=== PATIENT | female | born 1995 | race Caucasian/White ===

== ENCOUNTER 2023-11-03 06:47 | Outpatient (OUT) | payer OTHER, SELFPAY ==
[2023-11-03 07:25] LABS: Basophils Percent Auto 0.4 % (0.2-2.0); Eosinophils Absolute Auto 0.1 10^3/uL (0.0-0.7); Eosinophils Percent Auto 1.1 % (0.9-7.0); Hematocrit 39.6 % (36.0-48.0); Hemoglobin 12.4 g/dL (12.0-16.0); Immature Granulocytes Abs Auto 0.01 10^3/uL (0.00-0.03); Immature Granulocytes Pct Auto 0.1 % (0.0-0.5); Lymphocytes Absolute Auto 3.3 10^3/uL (1.2-3.8); Lymphocytes Percent Auto 41.2 % (20.5-60.0); Mean Corpuscular HGB Conc 31.3 g/dL (29.9-35.2); Mean Corpuscular Hemoglobin 28.3 pg (26.7-34.0); Mean Corpuscular Volume 90.4 fL (81.0-99.0); Mean Platelet Volume 8.8 fL (9.5-13.5); Monocytes Absolute Auto 0.4 10^3/uL (0.3-0.8); Monocytes Percent Auto 4.6 % (1.7-12.0); Neutrophils Absolute Auto 4.3 10^3/uL (1.4-6.5); Neutrophils Percent Auto 52.6 % (43.0-75.0); Platelet Count 318 10^3/uL (150-450); Red Blood Count 4.38 10^6/uL (4.20-5.40); Red Cell Distribution Width 13.2 % (11.0-15.0); White Blood Count 8.1 10^3/uL (4.0-11.0)
[2023-11-03 08:10] LABS: HCG Quantitative <1 mIU/mL; Thyroid Stimulating Hormone 3.214 uIU/mL (0.358-3.740)
[2023-11-04 04:11] LABS: FSH 7.7 mIU/mL (.); Luteinizing Hormone(LH) 12.7 mIU/mL (.)
[2023-11-06 03:07] LABS: Anti-Mullerian Hormone (AMH) 3.32 ng/mL (.)
[2023-11-07 17:08] LABS: DHEA, Serum 448 ng/dL (31-701)
== END 2023-11-03 06:48 | disposition home or self-care (01) ==
LOC: LAB 06:48
PROVIDERS: Visit Provider Obstetrics & Gynecology
DX: E28.2 Polycystic ovarian syndrome (principal)
CPT/HCPCS: 36415; 82397; 82626; 82627; 83001; 83002; 84439; 84443; 84702; 85025

== ENCOUNTER 2024-02-20 09:02 | Outpatient (OUT) | payer OTHER, SELFPAY ==
--- NOTE | 2024-02-20 09:04 | US_ITS ---
The [address] [address] Patient Name: LAURA OROSCO MRN: [id number] date: 1995 Sex: F Assigned Patient Location: [facility] Current Patient Location: [facility] Accession/Order Number: [id number] Exam Date: 02/20/2024 09:04 Report Date: 02/20/2024 10:15 At the request of: ЕКАТЕРИНА BARBOZA Procedure: US OB transvaginal EXAMINATION: US OB transvaginal HISTORY: MISSED MENSES, FOLLOW UP SUBCHORIONIC BLEED COMPARISON: Ultrasound report from outside facility, 02/13/2024 FINDINGS: GESTATIONAL SAC: Present and normal appearing. YOLK SAC: Present and normal appearing. POLE: Present and normal appearing. CARDIAC: Present. UTERUS: 2 small subchorionic hematomas, 9 x 6 x 6 mm and 13 x 8 x 6 mm. OVARIES: Right: Not seen. Left: Normal. CERVIX: 4.9 cm in length and closed. CUL-DE-SAC: Normal. OTHER: None. AGE BY LMP: 9 weeks 6 days ALEJANDRA BY LMP: 09/18/2024 AGE BY US CRL: 9 weeks 1 day ALEJANDRA BY US CRL: 09/23/2024 US/US OB transvaginal IMPRESSION: 1. Single live intrauterine . 2. Contains 2 small subchorionic hematomas which appear to be decreasing in size/resolving. Electronically authenticated by: NATHALIE SPARKS Date: 02/20/2024 10:15
--- OUTSIDE RECORDS SUMMARY | 2024-02-20 09:23 | XMS_ITS ---
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 Name Role Phone Gunnar Palacios Primary Care Provider [phone] EMILY WARREN Primary Care Unavailable EMILY WARREN Referring Unavailable EMILY WARREN Referring Unavailable EMILY WARREN Primary Care Unavailable EMILY WARREN Referring Unavailable EMILY WARREN Primary Care Unavailable ЕКАТЕРИНА BARBOZA Attending Unavailable ЕКАТЕРИНА BARBOZA Attending Unavailable Allergies Allergy Classification Reported Allergen(s) Allergy Type Date of Onset Reaction(s) Facility Cephalosporins (antibiotic) (1 source) cefprozil Drug Allergy 05-10-2013 [facility] (3 sources) cefprozil Drug Allergy 05-10-2013 [facility] [place] Encounters Encounter Date Encounter Type Care Provider Facility Start: 02-16-2024 End: 02-16-2024 ambulatory ЕКАТЕРИНА JABARI Not Available Start: 10-30-2023 End: 10-30-2023 ambulatory ЕКАТЕРИНА JABARI Not Available Start: 10-20-2023 End: 10-21-2023 ambulatory EMILY WARREN N[facility]icky [facility] Start: 07-11-2023 End: 07-12-2023 ambulatory EMILY WARREN Mercricky [facility] Start: 05-26-2023 End: 05-27-2023 ambulatory EMILY WARREN Nilaricky [facility] Start: 04-18-2022 End: 04-18-2022 Subsequent hospital visit by physician Gunnar Palacios MD Work Phone: [facility] Comment on above: Screening for diabet es mellitus; Screening cholesterol level Start: 01-30-2022 End: 01-30-2022 Patient encounter procedure Gunnar Palacios MD Work Phone: [facility] Start: 01-30-2022 End: 01-30-2022 Subsequent hospital visit by physician Gunnar Palacios MD Work Phone: [facility] Comment on above: Women's annual routi ne gynecological examination Start: 04-18-2021 End: 04-18-2021 Patient encounter status Gunnar Palacios MD Work Phone: [facility] Start: 04-18-2021 End: 04-18-2021 Subsequent hospital visit by physician Gunnar Palacios MD Work Phone: [facility] Comment on above: Wellness examination Start: 07-31-2019 End: 07-31-2019 Subsequent hospital visit by physician Gunnar Palacios [facility] Comment on above: Irregular menses Immunizations Immunization Date Immunization Notes Care Provider Fa cility 06-15-2015 influenza virus vacc ine, whole virus [facility] 10-06-2013 hepatitis A vaccine, unspecified formulation [facility] , [place] 10-06-2013 tetanus toxoid, redu linda diphtheria toxoid, and acellular pertussis vaccine, adsorbed [facility], [place] 05-25-2013 varicella virus vaccine [facility], [place] 02-25-2013 hepatitis A vaccine, unspecified formulation [facility] , [place] 02-25-2013 meningococcal polysaccharide (groups A, C, Y and W-135) diphtheria toxoid conjugate vaccine (MCV4P) [facility], [place] 03-05-2001 diphtheria, tetanus toxoids and acellular pertussis vaccine [facility], [place] 03-05-2001 measles, mumps and r ubella virus vaccine [facility], [place] 03-05-2001 poliovirus vaccine, inactivated [facility], [place] 07-14-1997 diphtheria, tetanus toxoids and acellular pertussis vaccine [facility], [place] 05-09-1997 measles, mumps and r ubella virus vaccine [facility], [place] 05-09-1997 varicella virus vaccine [facility] Peggy daniel [facility], [place] 1996 diphtheria, tetanus toxoids and acellular pertussis vaccine [facility], [place] 1996 hepatitis B vaccine, unspecified formulation [facility] , [place] 1996 poliovirus vaccine, inactivated [facility], [place] 1996 diphtheria, tetanus toxoids and acellular pertussis vaccine [facility], [place] 1996 haemophilus influenz ae type b vaccine, PRP-OMP conjugate [facility], [place] 1996 poliovirus vaccine, inactivated [facility], [place] 1996 diphtheria, tetanus toxoids and acellular pertussis vaccine [facility] 1996 haemophilus influenz ae type b vaccine, PRP-OMP conjugate [facility], [place] 1996 poliovirus vaccine, inactivated [facility], [place] 1996 haemophilus influenz ae type b vaccine, PRP-OMP conjugate [facility], [place] 1996 hepatitis B vaccine, unspecified formulation [facility] , [place] 1996 haemophilus influenz ae type b vaccine, PRP-OMP conjugate [facility], [place] 1996 hepatitis B vaccine, unspecified formulation [facility] [place] Medications Current Medications Medication Drug Class(es) Dates Sig (Normalized) Sig (Original) metFORMIN hydrochloride 500 mg oral tablet (3 sources) Biguanide Start: 01-30-2022 take 3 tablets by mouth once daily at breakfast metFORMIN (GLUCOPHAGE) 500 MG tablet Take 3 tablets by mouth daily (with breakfast) 90 tablet 12 01/30/2022 Active Start: 09-07-2019 take 3 tablets by mo uth once daily at breakfast metFORMIN (GLUCOPHAGE) 500 MG tablet Take 3 tablets by mouth daily (with breakfast) 90 tablet 09/07/2019 Active Payers Date Payer Category Payer Unknown [id number] 2021 Unknown [id number] 2020 Unknown [id number] 2016 Unknown [employer] [facility] [employer] PLAN EMP xxxxxxxxxxxx 2016-Present [phone] [address] [place] [address] xxxxxxxxxxxx [id number] 1995 Unknown [id number] 1995 Unknown [id number] 1996 Unknown [id number] 1996 Unknown [id number] 1995 Unknown [id number] Plan of Treatment Date Care Activity Detail Author Start: 01-30-2025 Screening for malign ant neoplasm of cervix Pap smear [facility] Start: 10-06-2023 DTaP/Tdap/Td vaccine (7 - Td or Tdap) DTaP/Tdap/Td vaccine (7 - Td or Tdap) [facility] Start: 10-06-2023 DTaP/Tdap/Td vaccine (7 - Td) DTaP/Tdap/Td vaccine (7 - Td) [place], [place] Start: 02-05-2023 End: 02-05-2023 Patient encounter procedure 02/05/2023 Office Visit Obstetrics and Gynecology Sarah Horn PA-C [address] [place] [address] [facility] Start: 05-16-2022 Influenza vaccination [facility] Start: 04-19-2022 End: 04-19-2022 Patient encounter procedure 04/19/2022 Office Visit Primary Care Gunnar Palacios MD [address] [place] [address] [facility] Start: 04-16-2022 Depression Screen Depression Screen [facility] Start: 05-16-2021 Influenza vaccination Flu vaccine (# 1) [facility] Work Phone: Start: 08-03-2019 End: 08-03-2019 Office Visit 08/03/2019 Office Visit Obstetrics and Gynecology [facility] [employer] Start: 05-16-2019 Influenza vaccination Flu vaccine (# 1) [place], [place] Start: 04-02-2017 Chlamydia screen Chlamydia screen [place], [place] Start: 04-02-2017 Screening for Chlamy daniella trachomatis Chlamydia screen [facility] Start: 2017 Cervical cancer screen Cervical canc er screen [place], [place] Start: 2017 Screening for malign ant neoplasm of cervix [facility] Start: 2014 Hepatitis C screening Hepatitis C [facility] Start: 2011 HIV screen HIV screen [place], [place] Start: 2008 COVID-19 Vaccine (1) COVID-19 Vaccin e (1) [facility] [employer] Phone: Start: 2007 HPV vaccine (1 - 2-d ose series) HPV vaccine (1 - 2-dose series) [facility] Start: 2007 HPV vaccine (1 - Fem rahul 2-dose series) HPV vaccine (1 - Female 2-dose series) [place], [place] Start: 2001 COVID-19 Vaccine (1) COVID-19 Vaccin e (1) [facility] Start: 1996 COVID-19 Vaccine (#1) COVID-19 Vacci ne (#1) [facility] Start: 1996 Hepatitis C [facility] Phone: End: 01-30-2022 Cytopathology procedure, preparation of smear, genital source [facility] Lab Routine Women's annual routine gynecological examination 1 Occurrences starting 01/30/2022 until 01/30/2022 [facility] Phone: Comment on above: 1 Occurrences starti ng 01/30/2022 until 01/30/2022 Problems Active Problems Problem Classification Problem Date Documented Da te Episodic/Chronic Anxiety disorders (4 sources) Anxiety; Translations: [Anxiety disorder, unspecified] Onset: 04-28-2015 04-28-2015 Chronic Diabetes mellitus without complication (4 sources) Hyperglycemia, unspecified; Translations: [Prediabetes] Onset: 05-26-2023 Episodic Disorders of lipid metabolism (3 sources) Mixed hyperlipidemia; Translations: [Mixed hyperlipidemia] Onset: 05-26-2023 Chronic Menstrual disorders (5 sources) Irregular periods; Translations: [Dysmenorrhea] Onset: 09-21-2015 09-21-2015 Chronic Other endocrine disorders (3 sources) Polycystic ovarian syndrome; Translations: [Polycystic ovarian syndrome] Onset: 03-23-2023 Chronic Other liver diseases (1 source) Abnormal levels of other serum enzymes; Translations: [Abnormal levels of other serum enzymes] Onset: 10-20-2023 Episodic Other nutritional; endocrine; and metabolic disorders (4 sources) Morbid obesity; Translations: [Morbid (severe) obesity due to excess calories] Onset: 09-13-2015 09-13-2015 Chronic Pulmonary heart disease (1 source) 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; Translations: [Embolism, pulmonary with infarction] Onset: 09-21-2015 09-21-2015 Past or Other Problems Problem Classification Problem Date Documented Da te Episodic/Chronic Deficiency and other anemia (4 sources) Iron deficiency anemia; Translations: [Iron deficiency anemia, unspecified] Onset: 09-14-2015 09-14-2015 Episodic Other screening for suspected conditions (not mental disorders or infectious disease) (3 sources) Patient encounter status; Translations: [Encounter for screening for diabetes mellitus] Onset: 07-11-2023 Episodic Phlebitis; thrombophlebitis and thromboembolism (4 sources) Thromboembolism of vein; Translations: [Acute embolism and thrombosis of unspecified vein] Onset: 03-21-2016 03-21-2016 Episodic Pulmonary heart disease (7 sources) Acute pulmonary embolism; Translations: [Other pulmonary embolism without acute cor pulmonale] Onset: 09-13-2015 09-13-2015 Episodic Procedures Date Procedure Procedure Detail Performing Clinician Start: 04-18-[address] gtt 3 specimens Gunnar Palacios MD Work Phone: Start: 04-18-2022 Lipid panel Gunnar Palacios MD Work Phone: Start: 01-30-2022 Microscopic observat ion [Identifier] in Cervix by Cyto stain Gunnar Palacios MD Work Phone: Start: 04-18-[address] gtt 3 specimens Gunnar Palacios MD Work Phone: Start: 04-18-2021 Lipid panel Gunnar Palacios MD Work Phone: Start: 07-31-2019 Assay of insulin total Olga Hernandez Work Phone: Start: 07-31-[address] gtt 3 specimens Olga Hernandez Work Phone: Start: 07-31-2019 Assay of thyroid stimulating hormone tsh Olga Hernandez Work Phone: Results Test Name Value Interpretation Reference Range Facil ity CBCon 10-20-2023 Erythrocyte distribution width (RBC) [Ratio] 13.3 % Normal 11.8-14.4 [facility] Comment on above: Performed By: #### C P, CBC #### [facility] [address] [place] [address] Timber Deadener: Robert Casiano MD #### GLYHGB #### [facility] [address] [place] [address] Timber Deadener: Ivan Perez MD Hematocrit (Bld) [Volume fraction] 42.6 % Normal 36.3-47.1 [facility] Comment on above: Performed By: #### C P, CBC #### [facility] [address] [place] [address] Timber Deadener: Robert Casiano MD #### GLYHGB #### [place] [id number] [place] [address] Timber Deadener: Ivan Perez MD Hemoglobin (Bld) [Mass/Vol] 13.6 g/dL Normal 11.9-15.1 [facility] Comment on above: Performed By: #### C P, CBC #### [facility] [address] [place] [address] [place] [address] Timber Deadener: Robert Casiano MD #### GLYHGB #### [address] [address] Timber Deadener: Ivan Perez MD MCH (RBC) [Entitic mass] 28.3 pg Normal 25.2-33.5 [facility] Comment on above: Performed By: #### C P, CBC #### [address] [place] [address] Timber Deadener: Robert Casiano MD #### GLYHGB #### [address] [place] [address] Timber Deadener: Ivan Perez MD MCHC (RBC) [Mass/Vol] 31.9 g/dL Normal 28.4-34.8 [facility] Comment on above: Performed By: #### C P, CBC #### [address] [place] [address] Timber Deadener: Robert Casiano MD #### GLYHGB #### [address] [place] [address] Timber Deadener: Ivan Perez MD MCV (RBC) [Entitic vol] 88.6 fL Normal 82.6-102.9 [facility] Comment on above: Performed By: #### C P, CBC #### [address] [place] [id number] Timber Deadener: Robert Casiano MD #### GLYHGB #### [address] [id number] Timber Deadener: Ivan Perez MD NRBC Automated 0.0 per 100 WBC Normal 0.0 [facility] Comment on above: Performed By: #### C P, CBC #### [address] [place] [id number] Timber Deadener: Robert Casiano MD #### GLYHGB #### [place] [address] Timber Deadener: Ivan Perez MD Platelet mean volume (Bld) [Entitic vol] 9.1 fL Normal 8.1-13.5 [facility] Comment on above: Performed By: #### C P, CBC #### [address] [place] [id number] Timber Deadener: Robert Casiano MD #### GLYHGB #### [place] [address] Timber Deadener: Ivan Perez MD Platelets (Bld) [#/Vol] 322 10*3/uL Normal 138-453 [facility] Comment on above: Performed By: #### C P, CBC #### [address] [place] [id number] Timber Deadener: Robert Casiano MD #### GLYHGB #### [address] [id number] Timber Deadener: Ivan Perez MD RBC (Bld) [#/Vol] 4.81 10*6/uL Normal 3.95-5.11 [facility] Comment on above: Performed By: #### C P, CBC #### [address] [place] [id number] Timber Deadener: Robert Casiano MD #### GLYHGB #### [address] [place], [place] [id number] Timber Deadener: Ivan Perez MD WBC (Bld) [#/Vol] 7.9 10*3/uL Normal 3.5-11.3 [facility] Comment on above: Performed By: #### C P, CBC #### [facility] [address] [place] [address] [address] [place] [id number] Timber Deadener: Robert Casiano MD #### GLYHGB #### [place] [address] Timber Deadener: Ivan Perez MD Comp Metabolic Profon 2023 Albumin [Mass/Vol] 4.3 g/dL Normal 3.5-5.2 [facility] Comment on above: Performed By: #### C P, CBC #### [address] [place] [id number] ( Timber Deadener: Robert Casiano MD #### GLYHGB #### [place] [address] Timber Deadener: Ivan Perez MD Albumin/Glob Ratio 1.4 Normal 1.0-2.5 [facility] Comment on above: Performed By: #### C P, CBC #### [address] [place] [phone] Timber Deadener: Robert Casiano MD #### GLYHGB #### [address] [address] Timber Deadener: Ivan Perez MD Alkaline Phos 49 U/L Normal 35-104 [facility] Comment on above: Performed By: #### C P, CBC #### [address] [place] [address] Timber Deadener: Robert Casiano MD #### GLYHGB #### [facility] [address] [place] [address] Timber Deadener: Ivan Perez MD ALT [Catalytic activity/Vol] 29 U/L Normal 5-33 [facility] Comment on above: Performed By: #### C P, CBC #### [facility] [address] [place], [place] [phone] Timber Deadener: Robert Casiano MD #### GLYHGB #### [facility] [address] [place] [address] Timber Deadener: Ivan Perez MD Anion gap [Moles/Vol] 12 mmol/L Normal 9-17 [facility] Comment on above: Performed By: #### C P, CBC #### [facility] [address] [place], [place] [id number] Timber Deadener: Robert Casiano MD #### GLYHGB #### [facility] [address] [place] [address] Timber Deadener: Ivan Perez MD AST [Catalytic activity/Vol] 25 U/L Normal <32 [facility] Comment on above: Performed By: #### C P, CBC #### [facility] [address] [place], [place] [phone] Timber Deadener: Robert Casiano MD #### GLYHGB #### [facility] [address] [place] [address] Timber Deadener: Ivan Perez MD Bilirubin [Mass/Vol] 0.2 mg/dL Low 0.3-1.2 [facility] Comment on above: Performed By: #### C P, CBC #### [facility] [address] [place], [place] [phone] Timber Deadener: Robert Casiano MD #### GLYHGB #### [address] [address] Timber Deadener: Ivan Perez MD BUN/CRE Ratio 28 High 9-20 [facility] Comment on above: Performed By: #### C P, CBC #### [facility] [address] [place], [place] [id number] Timber Deadener: Robert Casiano MD #### GLYHGB #### [address] [address] Timber Deadener: Ivan Perez MD Calcium [Mass/Vol] 9.1 mg/dL Normal 8.6-10.4 [facility] Comment on above: Performed By: #### C P, CBC #### [facility] [address] [place] [address] Dr. [place], [place] [phone] Timber Deadener: Robert Casiano MD #### GLYHGB #### [address] [address] Timber Deadener: Ivan Perez MD Chloride [Moles/Vol] 108 mmol/L High 98-107 [facility] Comment on above: Performed By: #### C P, CBC #### [facility] [address] [place] [address] Dr. [place], [place] 115[address]83 Timber Deadener: Robert Casiano MD #### GLYHGB #### [address] [address] Timber Deadener: Ivan Perez MD CO2 [Moles/Vol] 24 mmol/L Normal 20-31 [facility] Comment on above: Performed By: #### C P, CBC #### [facility] [address] [place], [place] [id number] Timber Deadener: Robert Casiano MD #### GLYHGB #### [address] [address] Timber Deadener: Ivan Perez MD Creatinine [Mass/Vol] 0.6 mg/dL Normal 0.5-0.9 [facility] Comment on above: Performed By: #### C P, CBC #### [facility] [address] [place] [address] [place] [address] Timber Deadener: Robert Casiano MD #### GLYHGB #### [address] [id number] Timber Deadener: Ivan Perez MD GFR/1.73 sq M.predicted among non-blacks MDRD (S/P/Bld) [Vol rate/Area] mL/min/{1.73_m2} Normal >60 [facility] Comment on above: Result Comment: These results are not intended for use in patients <18 years of age. eGFR results are calculated without a race factor using the 2020 CKD-EPI equation. Careful clinical correlation is recommended, particularly when comparing to results calculated using previous equations. The CKD-EPI equation is less accurate in patients with extremes of muscle mass, extra-renal metabolism of creatine, excessive creatine ingestion, or following therapy that affects renal tubular secretion. Performed By: #### C P, CBC #### [address] [place] [address] Timber Deadener: Robert Casiano MD #### GLYHGB #### [facility] [place], [place] [id number] Timber Deadener: Ivan Perez MD Glucose [Mass/Vol] 90 mg/dL Normal 70-99 [facility] Comment on above: Performed By: #### C P, CBC #### [facility] [address] [place] [address] [place] [address] Timber Deadener: Robert Casiano MD #### GLYHGB #### [facility] [employer] [address] [place] [address] Timber Deadener: Ivan Perez MD Potassium [Moles/Vol] 4.2 mmol/L Normal 3.7-5.3 [facility] Comment on above: Performed By: #### C P, CBC #### [facility] [address] [place], [place] [phone] Timber Deadener: Robert Casiano MD #### GLYHGB #### [address] [address] Timber Deadener: Ivan Perez MD Protein [Mass/Vol] 7.3 g/dL Normal 6.4-8.3 [facility] Comment on above: Performed By: #### C P, CBC #### [facility] [address] [place] [id number] Timber Deadener: Robert Casiano MD #### GLYHGB #### [address] [id number] Timber Deadener: Ivan Perez MD Sodium [Moles/Vol] 144 mmol/L Normal 135-144 [facility] Comment on above: Performed By: #### C P, CBC #### [facility] [address] [place] [address] [place], [place] [phone] Timber Deadener: Robert Casiano MD #### GLYHGB #### [address] [address] Timber Deadener: Ivan Perez MD Urea nitrogen [Mass/Vol] 17 mg/dL Normal 6-20 [facility] Comment on above: Performed By: #### C P, CBC #### [facility] [address] [place] [address] [place], [place] [id number] Timber Deadener: Robert Casiano MD #### GLYHGB #### [address] [address] Timber Deadener: Ivan Perez MD Hemoglobin A1Con 10-20-2023 Glucose [Mass/Vol] 105 mg/dL Normal [facility] Comment on above: Result Comment: The ADA and AACC recommend providing the estimated average glucose result to permit better patient understanding of their HBA1c result. Performed By: #### C P, CBC #### [facility] [address] [place], [place] [phone] Timber Deadener: Robert Casiano MD #### GLYHGB #### [address] [place] [address] Timber Deadener: Ivan Perez MD HbA1c (Bld) [Mass fraction] 5.3 % Normal 4.0-6.0 [facility] Comment on above: Performed By: #### C P, CBC #### [facility] [address] [place], [place] [phone] Timber Deadener: Robert Casiano MD #### GLYHGB #### [address] [address] Timber Deadener: Ivan Perez MD Lipid Profileon 10-20-2023 Cholesterol [Mass/Vol] 163 mg/dL Normal <200 [facility] Comment on above: Result Comment: Cholesterol Guidelines: <200 Desirable 200-240 Borderline >240 Undesirable Performed By: #### L IPR #### [address] [address] Timber Deadener: Ivan Perez MD Cholesterol in HDL [Mass/Vol] 44 mg/dL Normal >40 [facility] Comment on above: Result Comment: HDL Guidelines: <40 Undesirable 40-59 Borderline >59 Desirable Performed By: #### L IPR #### [address] [address] Timber Deadener: Ivan Perez MD Cholesterol in LDL [Mass/Vol] 100 mg/dL Normal 0-130 [facility] Comment on above: Result Comment: LDL Guidelines: <100 Desirable 100-129 Near to/above Desirable 130-159 Borderline >159 Undesirable Direct (measured) LDL and calculated LDL are not interchangeable tests. Performed By: #### L IPR #### [address] [address] Timber Deadener: Ivan Perez MD Cholesterol.total/Ch olesterol in HDL [Mass ratio] 3.7 {ratio} Normal <5 [facility] Comment on above: Performed By: #### L IPR #### [facility] [address], [place] [id number] Timber Deadener: Ivan Perez MD Triglyceride [Mass/Vol] 94 mg/dL Normal <150 [facility] Comment on above: Result Comment: Triglyceride Guidelines: <150 Desirable 150-199 Borderline 200-499 High >499 Very high Based on AHA Guidelines for fasting triglyceride, June 2012. Performed By: #### L IPR #### [facility] [employer] [address] [place] [address] Timber Deadener: Ivan Perez MD [place] 07-11-2023 ALT [Catalytic activity/Vol] 32 U/L Normal 5-33 [facility] Comment on above: Performed By: #### A ST, ALT #### [facility] [address] [place] [address] Timber Deadener: Robert Casiano MD [place] 07-11-2023 AST [Catalytic activity/Vol] 23 U/L Normal <32 [facility] Comment on above: Performed By: #### A ST, ALT #### [facility] [address] [place] [address] Timber Deadener: Robert Casiano MD TSH w/reflex to FT4on 2022 Thyroid Stim. Horm. 2.14 uIU/mL Normal 0.30-5.00 [facility] Comment on above: Performed By: #### T SHX #### [facility] [address] [place] [address] Timber Deadener: Robert Casiano MD Glucose, Fastingon Glucose [Mass/Vol] 77 mg/dL 70 - 99 mg/dL [facility] Lipid Panelon 04-18-2022 Cholesterol [Mass/Vol] 194 mg/dL NINF - 200 mg/dL [facility] Comment on above: Cholesterol Guidelines: <200 Desirable 200-240 Borderline >240 Undesirable Cholesterol in HDL [Mass/Vol] 47 mg/dL 40 - PINF mg/dL [employer] Comment on above: HDL Guidelines: <40 Undesirable 40-59 Borderline >59 Desirable Cholesterol in LDL [Mass/Vol] 129 mg/dL 0 - 130 mg/dL [employer] Comment on above: LDL Guidelines: <100 Desirable 100-129 Near to/above Desirable 130-159 Borderline >159 Undesirable Direct (measured) LDL and calculated LDL are not interchangeable tests. Cholesterol.total/Ch olesterol in HDL [Mass ratio] 4.1 {ratio} NINF - 5 [employer] Triglyceride [Mass/Vol] 89 mg/dL NINF - 150 mg/dL [employer] Comment on above: Triglyceride Guidelines: <150 Desirable 150-199 Borderline 200-499 High >499 Very high Based on AHA Guidelines for fasting triglyceride, June 2012. [employer] Glucose, FastingOrdered By: Gunnar Palacios on 04-18-2021 Glucose [Mass/Vol] 85 mg/dL 70 - 99 mg/dL [facility] [employer] Phone: [facility] Phone: Lipid PanelOrdered By: Wesley Palacios on 04-18-2021 Cholesterol [Mass/Vol] 180 mg/dL <200 [facility] Phone: Comment on above: Cholesterol Guidelines: <200 Desirable 200-240 Borderline >240 Undesirable Cholesterol in HDL [Mass/Vol] 45 mg/dL >40 [facility] Phone: Comment on above: HDL Guidelines: <40 Undesirable 40-59 Borderline >59 Desirable Cholesterol in LDL [Mass/Vol] 113 mg/dL 0 - 130 mg/dL [facility] Phone: Comment on above: LDL Guidelines: <100 Desirable 100-129 Near to/above Desirable 130-159 Borderline >159 Undesirable Direct (measured) LDL and calculated LDL are not interchangeable tests. Cholesterol in VLDL [Mass/Vol] NOT REPORTED 1 - 30 mg/dL [facility] Phone: Cholesterol.total/Ch olesterol in HDL [Mass ratio] 4 {ratio} <5 [facility] [facility] Phone: Triglyceride [Mass/Vol] 112 mg/dL <150 [facility] Comment on above: Triglyceride Guidelines: <150 Desirable 150-199 Borderline 200-499 High >499 Very high Based on AHA Guidelines for fasting triglyceride, June 2012. [facility] [facility] Phone: Glucose, Fastingon 9 Glucose [Mass/Vol] 106 mg/dL High 70 - 99 mg/dL [place], [place] Interpretation and review of laboratory results Abnormal [place], [place] Insulin, Totalon 07-31-2019 INR Coag (Bld) [Relative time] [place], [place] Comment on above: Fastin.6-24.9 30 min: 20-112 60 min: 29-88 90 min: 26-84 120 min: 22-79 Insulin 44.5 mU/L [place], [place] Insulin Comment NOT REPORTED [facility] [place] TSHon 07-31-2019 TSH Qn 2.26 m[IU]/L [place], [place] Social History Date Type Detail Facility Start: 07-16-2017 End: 04-16-2021 Tobacco use and exposure [facility] Start: 04-16-2021 History SDOH Financial 5 [facility]: Start: 04-16-2021 History SDOH Food Worry 1 [facility]: Start: 04-16-2021 History SDOH Transpo rt Med 2 [facility] Start: 07-16-2017 End: 07-13-2019 Tobacco smoking status NHIS Never smoker [place], [place] Start: 07-13-2019 End: 01-30-2022 Alcohol intake Current non-drinker of alcohol (finding) [place], [place] Start: 1995 Sex Assigned At Not on file [place], [place] Evaluation note Note Date & Type Note Facility Evaluation note Diagnosis Wellness examination documented in this encounter [facility] Phone: Evaluation note Note Date & Type Note Facility Evaluation note Diagnosis Women's annual routine gynecological examination documented in this encounter [facility] [facility] Phone: Evaluation note Note Date & Type Note Facility Evaluation note Diagnosis Screening for diabetes mellitus Screening cholesterol level Screening for lipoid disorders documented in this encounter ANDRÉS MARTINEZ [employer] Phone: Assessments Diagnosis Irregular menses Irregular menstrual cycle Advance Directives No Advanced Directives Records FoundDocuments on File Type Date Recorded Patient Supplier Quality Engineer Expl anation Advance Directives and Living Will Power of Electronic Components 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 Latest Code Status on File Code Status Date Activated Date Inactivated Comments Full Code 09/13/2015 8:45 PM 09/14/2015 5:05 PM Documents on File Type Date Recorded Patient Supplier Quality Engineer Expl anation ACP-Advance Directive ACP-Power of Electronic Components Assembler Summary Purpose Family History No Family History Records FoundNo Family History Records Found Additional Source Comments Care Teams (unrecognized sec tion and content) 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 Relationship Specialty Start Date End Date Gunnar Palacios MD [address] [place] [address] [phone] PCP - General Family Medicine 09/22/15 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 Relationship Specialty Start Date End Date Gunnar Palacios MD [address] [place] [address] [phone] PCP - General Family Medicine 09/22/15 INFORMATION SOURCE (unrecogn ized section and content) DATE CREATED AUTHOR 10/21/2023 Hiwot henderson DATE CREATED AUTHOR AUTHOR'S ORGANIZ ATION 02/17/2024 [facility] FOR RECORDS PERTAINING TO PATIENTS WHO ARE OR HAVE BEEN ENROLLED IN A CHEMICAL DEPENDENCY/SUBSTANCEABUSE PROGRAM, SOME INFORMATION MAY BE OMITTED. This clinical summary was aggregated from multiple sources. Caution should be exercised in using it in the provision of clinical care. This summary normalizes information from multiple sources, and as a consequence, information in this document may materially change the coding, format and clinical context of patient data. In addition, data may be omitted in some cases. CLINICAL DECISIONS SHOULD BE BASED ON THE PRIMARY CLINICAL RECORDS. [employer] provides no warranty or guarantee of the accuracy or completeness of information in this document.
== END 2024-02-20 09:03 | disposition home or self-care (01) ==
LOC: NOMS 09:02
PROVIDERS: Visit Provider Obstetrics & Gynecology
DX: Z34.91 Encounter for supervision of normal pregnancy, unspecified, first trimester (principal); Z3A.09 9 weeks gestation of pregnancy; N92.6 Irregular menstruation, unspecified
CPT/HCPCS: 76817

== ENCOUNTER 2024-02-28 08:27 | Outpatient (OUT) | payer OTHER, SELFPAY ==
--- OUTSIDE RECORDS SUMMARY | 2024-02-28 08:30 | XMS_ITS | CCD ---
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 [facility] Care Team Providers Care Instrument Repair Technician Name Role Phone Philip Luis Antoniofrancdmitry Nataliya Primary Care Provider EMILY WARREN Primary Care Unavailable EMILY WARREN Referring Unavailable EMILY WARREN Referring Unavailable EMILY WARREN Primary Care Unavailable EMILY WARREN Referring Unavailable EMILY WARREN Primary Care Unavailable ЕКАТЕРИНА BARBOZA Attending Unavailable ЕКАТЕРИНА BARBOZA Attending Unavailable Allergies Allergy Classification Reported Allergen(s) Allergy Type Date of Onset Reaction(s) Facility Cephalosporins (antibiotic) (1 source) cefprozil Drug Allergy 05-10-2013 [facility] (3 sources) cefprozil Drug Allergy 05-10-2013 [place], [place] Medications Current Medications Medication Drug Class(es) Dates [...] by mouth daily (with breakfast) 90 tablet 11 09/07/2019 Active Problems Active Problems Problem Classification Problem Date [...] acute cor pulmonale] Onset: 09-13-2015 09-13-2015 Episodic Results Test Name Value Interpretation Reference Range Facil ity CBCon 10-20-2023 Erythrocyte distribution width (RBC) [Ratio] 13.3 % Normal 11.8-14.4 [facility] Comment on above: Performed By: #### C P, CBC #### [facility] [address] [place] [address] Academy Director: Robert Casiano MD #### GLYHGB #### [facility] [employer] [place] [facility] [place] [address] Academy Director: Ivan Perez MD Hematocrit (Bld) [Volume fraction] 42.6 % Normal 36.3-47.1 [facility] Comment on above: Performed By: #### C P, CBC #### [address] [place] [address] Academy Director: Robert Casiano MD #### GLYHGB #### [address] [id number] Academy Director: Ivan Perez MD Hemoglobin (Bld) [Mass/Vol] 13.6 g/dL Normal 11.9-15.1 [facility] Comment on above: Performed By: #### C P, CBC #### [address] [place] [id number] Academy Director: Robert Casiano MD #### GLYHGB #### [place] [id number] Academy Director: Ivan Perez MD MCH (RBC) [Entitic mass] 28.3 pg Normal 25.2-33.5 [facility] Comment on above: Performed By: #### C P, CBC #### [address] [place] [id number] Academy Director: Robert Casiano MD #### GLYHGB #### [place] [address] Academy Director: Ivan Perez MD MCHC (RBC) [Mass/Vol] 31.9 g/dL Normal 28.4-34.8 [facility] Comment on above: Performed By: #### C P, CBC #### [address] [place] [address] Academy Director: Robert Casiano MD #### GLYHGB #### [place] [id number] [place], [place] [id number] Academy Director: Ivan Perez MD MCV (RBC) [Entitic vol] 88.6 fL Normal 82.6-102.9 [facility] Comment on above: Performed By: #### C P, CBC #### [facility] [address] [place] [address] Academy Director: Robert Casiano MD #### GLYHGB #### [address] [id number] Academy Director: Ivan Perez MD NRBC Automated 0.0 per 100 WBC Normal 0.0 [facility] Comment on above: Performed By: #### C P, CBC #### [address] [place] [id number] Academy Director: Robert Casiano MD #### GLYHGB #### [address] [address] Academy Director: Ivan Perez MD Platelet mean volume (Bld) [Entitic vol] 9.1 fL Normal 8.1-13.5 [facility] Comment on above: Performed By: #### C P, CBC #### [address] [place] [id number] Academy Director: Robert Casiano MD #### GLYHGB #### [address] [id number] Academy Director: Ivan Perez MD Platelets (Bld) [#/Vol] 322 10*3/uL Normal 138-453 [facility] Comment on above: Performed By: #### C P, CBC #### [address] [place] [id number] Academy Director: Robert Casiano MD #### GLYHGB #### [address] [address] Academy Director: Ivan Perez MD RBC (Bld) [#/Vol] 4.81 10*6/uL Normal 3.95-5.11 [facility] Comment on above: Performed By: #### C P, CBC #### [facility] [address] [place] [address] Academy Director: Robert Casiano MD #### GLYHGB #### [place] [address] [place] [address] Academy Director: Ivan Perez MD WBC (Bld) [#/Vol] 7.9 10*3/uL Normal 3.5-11.3 [facility] Comment on above: Performed By: #### C P, CBC #### [address] [place] [address] ( Academy Director: Robert Casiano MD #### GLYHGB #### [address] [address] Academy Director: Ivan Perez MD Comp Metabolic Profon 2023 Albumin [Mass/Vol] 4.3 g/dL Normal 3.5-5.2 [facility] Comment on above: Performed By: #### C P, CBC #### [address] [place] [address] Academy Director: Robert Casiano MD #### GLYHGB #### [address] [address] Academy Director: Ivan Perez MD Albumin/Glob Ratio 1.4 Normal 1.0-2.5 [facility] Comment on above: Performed By: #### C P, CBC #### [address] [place] [address] ( Academy Director: Robert Casiano MD #### GLYHGB #### [place] [address] [place] [address] Academy Director: Ivan Perez MD Alkaline Phos 49 U/L Normal 35-104 [facility] Comment on above: Performed By: #### C P, CBC #### [facility] [address] [place], [place] [id number] Academy Director: Robert Casiano MD #### GLYHGB #### [facility] [address] [place] [address] Academy Director: Ivan Perez MD ALT [Catalytic activity/Vol] 29 U/L Normal 5-33 [facility] Comment on above: Performed By: #### C P, CBC #### [facility] [address] [place], [place] [id number] Academy Director: Robert Casiano MD #### GLYHGB #### [address] [address] Academy Director: Ivan Perez MD Anion gap [Moles/Vol] 12 mmol/L Normal 9-17 [facility] Comment on above: Performed By: #### C P, CBC #### [facility] [address] [place], [place] [id number] Academy Director: Robert Casiano MD #### GLYHGB #### [place] [address] [place] [address] Academy Director: Ivan Perez MD AST [Catalytic activity/Vol] 25 U/L Normal <32 [facility] Comment on above: Performed By: #### C P, CBC #### [facility] [address] [place] [address] Academy Director: Robert Casiano MD #### GLYHGB #### [place] [address] [place] [address] Academy Director: Ivan Perez MD Bilirubin [Mass/Vol] 0.2 mg/dL Low 0.3-1.2 [facility] Comment on above: Performed By: #### C P, CBC #### [facility] [address] [place], [place] [id number] Academy Director: Robert Casiano MD #### GLYHGB #### [place] [address] [place] [address] Academy Director: Ivan Perez MD BUN/CRE Ratio 28 High 9-20 [facility] Comment on above: Performed By: #### C P, CBC #### [facility] [address] [place], [place] [phone] Academy Director: Robert Casiano MD #### GLYHGB #### [address] [address] Academy Director: Ivan Perez MD Calcium [Mass/Vol] 9.1 mg/dL Normal 8.6-10.4 [facility] Comment on above: Performed By: #### C P, CBC #### [facility] [address] [place] [address] [address] [place], [place] [id number] Academy Director: Robert Casiano MD #### GLYHGB #### [address] [address] Academy Director: Ivan Perez MD Chloride [Moles/Vol] 108 mmol/L High 98-107 [facility] Comment on above: Performed By: #### C P, CBC #### [facility] [address] [place] [address] Dr. [place], [place] [id number] Academy Director: Robert Casiano MD #### GLYHGB #### [address] [address] Academy Director: Ivan Perez MD CO2 [Moles/Vol] 24 mmol/L Normal 20-31 [facility] Comment on above: Performed By: #### C P, CBC #### [facility] [address] [place], [place] 076[address] Academy Director: Robert Casiano MD #### GLYHGB #### [facility] [employer] [place] [facility] [place] [address] Academy Director: Ivan Perez MD Creatinine [Mass/Vol] 0.6 mg/dL Normal 0.5-0.9 [facility] Comment on above: Performed By: #### C P, CBC #### [facility] [address] [place] [address] [place] [address] Academy Director: Robert Casiano MD #### GLYHGB #### [address] [address] Academy Director: Ivan Perez MD GFR/1.73 sq M.predicted among non-blacks MDRD (S/P/Bld) [Vol rate/Area] mL/min/{1.73_m2} Normal >60 [facility] Comment on above: Result Comment: These results [...] Performed By: #### C P, CBC #### [address] [place], [place] [id number] Academy Director: Robert Casiano MD #### GLYHGB #### [address] [address] Academy Director: Ivan Perez MD Glucose [Mass/Vol] 90 mg/dL Normal 70-99 [facility] Comment on above: Performed By: #### C P, CBC #### [facility] [address] [place] [address] Dr[address] [place], [place] [id number] Academy Director: Robert Casiano MD #### GLYHGB #### [address] [address] Academy Director: Ivan Perez MD Potassium [Moles/Vol] 4.2 mmol/L Normal 3.7-5.3 [facility] Comment on above: Performed By: #### C P, CBC #### [facility] [address] [place], [place] [id number] Academy Director: Robert Casiano MD #### GLYHGB #### [address] [id number] Academy Director: Ivan Perez MD Protein [Mass/Vol] 7.3 g/dL Normal 6.4-8.3 [facility] Comment on above: Performed By: #### C P, CBC #### [address] [place], [place] [id number] Academy Director: Robert Casiano MD #### GLYHGB #### [address] [id number] Academy Director: Ivan Perez MD Sodium [Moles/Vol] 144 mmol/L Normal 135-144 [facility] Comment on above: Performed By: #### C P, CBC #### [address] [place], [place] [id number] Academy Director: Robert Casiano MD #### GLYHGB #### [address] [address] Academy Director: Ivan Perez MD Urea nitrogen [Mass/Vol] 17 mg/dL Normal 6-20 [facility] Comment on above: Performed By: #### C P, CBC #### [address] [place], [place] 1965[address] Academy Director: Robert Casiano MD #### GLYHGB #### [address] [address] Academy Director: Ivan Perez MD Hemoglobin A1Con 10-20-2023 Glucose [Mass/Vol] 105 mg/dL Normal [facility] Comment on above: Result Comment: The ADA and AACC recommend providing the estimated average glucose result to permit better patient understanding of their HBA1c result. Performed By: #### C P, CBC #### [facility] [address] [place], [place] [id number] Academy Director: Robert Casiano MD #### GLYHGB #### [address] [address] Academy Director: Ivan Perez MD HbA1c (Bld) [Mass fraction] 5.3 % Normal 4.0-6.0 [facility] Comment on above: Performed By: #### C P, CBC #### [facility] [address] [place], [place] [id number] Academy Director: Robert Casiano MD #### GLYHGB #### [address] [address] Academy Director: Ivan Perez MD Lipid Profileon 10-20-2023 Cholesterol [Mass/Vol] 163 mg/dL Normal <200 [facility] Comment on above: Result Comment: Cholesterol Guidelines: <200 Desirable 200-240 Borderline >240 Undesirable Performed By: #### L IPR #### [address] [address] Academy Director: Ivan Perez MD Cholesterol in HDL [Mass/Vol] 44 mg/dL Normal >40 [facility] Comment on above: Result Comment: HDL Guidelines: <40 Undesirable 40-59 Borderline >59 Desirable Performed By: #### L IPR #### [address] [address] Academy Director: Ivan Perez MD Cholesterol in LDL [Mass/Vol] 100 mg/dL Normal 0-130 [facility] Comment on above: Result Comment: LDL Guidelines: <100 Desirable 100-129 Near to/above Desirable 130-159 Borderline >159 Undesirable Direct (measured) LDL and calculated LDL are not interchangeable tests. Performed By: #### L IPR #### [place] [address] [place] [address] Academy Director: Ivan Perez MD Cholesterol.total/Ch olesterol in HDL [Mass ratio] 3.7 {ratio} Normal <5 [facility] Comment on above: Performed By: #### L IPR #### [place] [address] [place] [address] Academy Director: Ivan Perez MD Triglyceride [Mass/Vol] 94 mg/dL Normal <150 [facility] Comment on above: Result Comment: Triglyceride Guidelines: <150 Desirable 150-199 Borderline 200-499 High >499 Very high Based on AHA Guidelines for fasting triglyceride, June 2012. Performed By: #### L IPR #### [address] [address] Academy Director: Ivan Perez MD [place] 07-11-2023 ALT [Catalytic activity/Vol] 32 U/L Normal 5-33 [facility] Comment on above: Performed By: #### A ST, ALT #### [facility] [address] [place] [address] [place] [address] Academy Director: Robert Casiano MD Yesi 8 AST [Catalytic activity/Vol] 23 U/L Normal <32 [facility] Comment on above: Performed By: #### A ST, ALT #### [facility] [address] [place] [address] Academy Director: Robert Casiano MD TSH w/reflex to FT4on 2022 Thyroid Stim. Horm. 2.14 uIU/mL Normal 0.30-5.00 [facility] Comment on above: Performed By: #### T SHX #### [facility] [address] [place] [address] Academy Director: Robert Casiano MD Glucose, Fastingon 2 Glucose [Mass/Vol] 77 mg/dL 70 - 99 mg/dL [employer] [facility] Lipid Panelon 04-18-2022 Cholesterol [Mass/Vol] 194 mg/dL NINF - 200 mg/dL [facility] Comment on above: Cholesterol Guidelines: <200 Desirable 200-240 Borderline >240 Undesirable Cholesterol in HDL [Mass/Vol] 47 mg/dL 40 - PINF mg/dL [facility] Comment on above: HDL Guidelines: <40 Undesirable 40-59 Borderline >59 Desirable Cholesterol in LDL [Mass/Vol] 129 mg/dL 0 - 130 mg/dL [facility] Comment on above: LDL Guidelines: <100 Desirable 100-129 Near to/above Desirable 130-159 Borderline >159 Undesirable Direct (measured) LDL and calculated LDL are not interchangeable tests. Cholesterol.total/Ch olesterol in HDL [Mass ratio] 4.1 {ratio} NINF - 5 [facility] Triglyceride [Mass/Vol] 89 mg/dL NINF - 150 mg/dL [facility] Comment on above: Triglyceride Guidelines: <150 Desirable 150-199 Borderline 200-499 High >499 Very high Based on AHA Guidelines for fasting triglyceride, June 2012. [facility] [employer] Glucose, FastingOrdered By: Gunnar Palacios on 04-18-2021 Glucose [Mass/Vol] 85 mg/dL 70 - 99 mg/dL [facility] [employer] Work Phone: [facility] [employer] Phone: Lipid PanelOrdered By: Wesley Palacios on 04-18-2021 Cholesterol [Mass/Vol] 180 mg/dL <200 [facility] [employer] Work Phone: Comment on above: Cholesterol Guidelines: <200 Desirable 200-240 Borderline >240 Undesirable Cholesterol in HDL [Mass/Vol] 45 mg/dL >40 [facility] [employer] Work Phone: Comment on above: HDL Guidelines: <40 Undesirable 40-59 Borderline >59 Desirable Cholesterol in LDL [Mass/Vol] 113 mg/dL 0 - 130 mg/dL [facility] [employer] Phone: Comment on above: LDL Guidelines: <100 Desirable 100-129 Near to/above Desirable 130-159 Borderline >159 Undesirable Direct (measured) LDL and calculated LDL are not interchangeable tests. Cholesterol in VLDL [Mass/Vol] NOT REPORTED 1 - 30 mg/dL [employer] Phone: Cholesterol.total/Ch olesterol in HDL [Mass ratio] 4 {ratio} <5 [employer] Phone: Triglyceride [Mass/Vol] 112 mg/dL <150 [employer] Phone: Comment on above: Triglyceride Guidelines: <150 Desirable 150-199 Borderline 200-499 High >499 Very high Based on AHA Guidelines for fasting triglyceride, June 2012. [employer] Phone: Glucose, Fastingon 9 Glucose [Mass/Vol] 106 mg/dL High 70 - 99 mg/dL [facility] [employer] [place], [place] Interpretation and review of laboratory results Abnormal [place], [place] Insulin, Totalon 07-31-2019 INR Coag (Bld) [Relative time] [place], [place] Comment on above: Fastin.6-24.9 30 min: 20-112 60 min: 29-88 90 min: 26-84 120 min: 22-79 Insulin 44.5 mU/L [place] Insulin Comment NOT REPORTED [facility] [place] TSHon 07-31-2019 TSH Qn 2.26 m[IU]/L [place], [place] Encounters Encounter Date Encounter Type Care Provider Facility Start: 02-20-2024 End: 02-20-2024 ambulatory ЕКАТЕРИНА JABARI Not Available Start: 02-16-2024 End: 02-16-2024 ambulatory ЕКАТЕРИНА JABARI Not Available Start: 10-30-2023 End: 10-30-2023 ambulatory ЕКАТЕРИНА JABARI Not Available Start: 10-20-2023 End: 10-21-2023 [facility] Start: 07-11-2023 End: 07-12-2023 ambulatory EM[facility] WARREN [facility] Start: 05-26-2023 End: 05-27-2023 [facility] Start: 04-18-2022 End: 04-18-2022 Subsequent hospital visit by physician Gunnar Palacios MD Work Phone: [facility] Comment on above: Screening for diabet es mellitus; Screening cholesterol level Start: 01-30-2022 End: 01-30-2022 Patient encounter procedure Gunnar Palacios MD Work Phone: [facility] Start: 01-30-2022 End: 01-30-2022 Subsequent hospital visit by physician Gunnar Palacios MD Work Phone: [facility] Comment on above: Women's annual routi ne gynecological examination Start: 04-18-2021 End: 04-18-2021 Patient encounter status Gunnar Palacios MD Work Phone: [facility] Start: 04-18-2021 End: 04-18-2021 Subsequent hospital visit by physician Gunnar Palacios MD Work Phone: [facility] Comment on above: Wellness examination Start: 07-31-2019 End: 07-31-2019 Subsequent hospital visit by physician Gunnar Palacios [facility] Comment on above: Irregular menses Procedures Date Procedure Procedure Detail Performing Clinician [...] Start: 07-31-2019 Assay of insulin total Olga Osborne [facility] [place] Work Phone: Start: 07-31-[address] gtt 3 specimens Olga Dylon Chuck [place] Work Phone: Start: 07-31-2019 Assay of thyroid stimulating hormone tsh Olga Hernandez Work Phone: Plan of Treatment Date Care Activity Detail Author Start: 01-30-2025 Screening for malign ant neoplasm of cervix Pap smear ANDRÉS MARTINEZ [facility] Start: 10-06-2023 DTaP/Tdap/Td vaccine (7 - Td or Tdap) DTaP/Tdap/Td vaccine (7 - Td or Tdap) [facility] Start: 10-06-2023 DTaP/Tdap/Td vaccine (7 - Td) DTaP/Tdap/Td vaccine (7 - Td) [place], [place] Start: 02-05-2023 End: 02-05-2023 Patient encounter procedure 02/05/2023 Office Visit Obstetrics and Gynecology Sarah Horn PA-C [address] [place] [address] [facility] Start: 05-16-2022 Influenza vaccination [facility] Start: 04-19-2022 End: 04-19-2022 Patient encounter procedure 04/19/2022 Office Visit Primary Care Gunnar Palacios MD [address] [place] [address] [facility] Start: 04-16-2022 Depression Screen Depression Screen [facility] Start: 05-16-2021 Influenza vaccination Flu vaccine (# 1) [facility] Work Phone: Start: 08-03-2019 End: 08-03-2019 Office Visit 08/03/2019 Office Visit Obstetrics and Gynecology [facility] [employer] Start: 05-16-2019 Influenza vaccination Flu vaccine (# 1) [place], [place] Start: 04-02-2017 Chlamydia screen Chlamydia screen [place], [place] Start: 04-02-2017 Screening for Chlamy daniella trachomatis Chlamydia screen [facility] Start: 2017 Cervical cancer screen Cervical canc er screen [place], [place] Start: 2017 Screening for malign ant neoplasm of cervix [facility] Start: 2014 Hepatitis C screening Hepatitis C [facility] Start: 2011 HIV screen HIV screen [place], [place] Start: 2008 COVID-19 Vaccine (1) COVID-19 Vaccin e (1) [facility] Phone: Start: 2007 HPV vaccine (1 - 2-d ose series) HPV vaccine (1 - 2-dose series) [facility] Start: 2007 HPV vaccine (1 - Fem rahul 2-dose series) HPV vaccine (1 - Female 2-dose series) [place], [place] Start: 2001 COVID-19 Vaccine (1) COVID-19 Vaccin e (1) [facility] Start: 1996 COVID-19 Vaccine (#1) COVID-19 Vacci ne (#1) ANDRÉS MARTINEZ [facility] Start: 1996 Hepatitis C screening Hepatitis C [facility] Phone: End: 01-30-2022 Cytopathology procedure, preparation of smear, genital source PAP SMEAR Lab Routine Women's annual routine gynecological examination 1 Occurrences starting 01/30/2022 until 01/30/2022 [facility] Phone: Comment on above: 1 Occurrences starti ng 01/30/2022 until 01/30/2022 Immunizations Immunization Date Immunization Notes Care Provider Justine drake 06-15-2015 influenza virus vacc ine, whole virus [facility] 10-06-2013 hepatitis A vaccine, unspecified formulation [facility] [place] 10-06-2013 tetanus toxoid, redu linda diphtheria toxoid, and acellular pertussis vaccine, adsorbed [facility] 05-25-2013 varicella virus vaccine [facility], [place] 02-25-2013 hepatitis A vaccine, unspecified formulation [place], [place] 02-25-2013 meningococcal polysaccharide (groups A, C, Y and W-135) diphtheria toxoid conjugate vaccine (MCV4P) [place], [place] 03-05-2001 diphtheria, tetanus toxoids and acellular pertussis vaccine [facility], [place] 03-05-2001 measles, mumps and r ubella virus vaccine [facility], [place] 03-05-2001 poliovirus vaccine, inactivated [facility] 07-14-1997 diphtheria, tetanus toxoids and acellular pertussis vaccine [facility] 05-09-1997 measles, mumps and r ubella virus vaccine [facility] 05-09-1997 varicella virus vaccine [facility] 1996 diphtheria, tetanus toxoids and acellular pertussis vaccine [facility] 1996 hepatitis B vaccine, unspecified formulation [facility] [place] 1996 poliovirus vaccine, inactivated [facility] 1996 diphtheria, tetanus toxoids and acellular pertussis vaccine [facility] 1996 haemophilus influenz ae type b vaccine, PRP-OMP conjugate [facility], [place] 1996 poliovirus vaccine, inactivated [facility] 1996 diphtheria, tetanus toxoids and acellular pertussis vaccine [facility] 1996 haemophilus influenz ae type b vaccine, PRP-OMP conjugate [facility], [place] 1996 poliovirus vaccine, inactivated [facility] 1996 haemophilus influenz ae type b vaccine, PRP-OMP conjugate [facility] 1996 hepatitis B vaccine, unspecified formulation [facility] , [place] 1996 haemophilus influenz ae type b vaccine, PRP-OMP conjugate [facility], [place] 1996 hepatitis B vaccine, unspecified formulation [facility] , [place] Payers Date Payer Category Payer Unknown [id number] 2021 Unknown [id number] 2020 Unknown [id number] 2016 Unknown [employer] EMP xxxxxxxxxxxx 2016-Present [phone] [address] [place] [address] xxxxxxxxxxxx [id number] 1996 Unknown [id number] 1996 Unknown [id number] 1996 Unknown [id number] 1996 Unknown [id number] 9 1996 Unknown [id number] 9 1996 Unknown [id number] 9 Social History Date Type Detail Facility Start: 07-16-2017 End: 07-13-2019 Tobacco smoking status NHIS Never smoker [place], [place] Start: 07-13-2019 End: 01-30-2022 Alcohol intake Current non-drinker of alcohol (finding) [place], [place] Start: 1995 Sex Assigned At Not on file M [place] Start: 07-16-2017 End: 04-16-2021 Tobacco use and exposure Never used [employer] Phone: Start: 04-16-2021 History SDOH Financial 5 [employer]: Start: 04-16-2021 History SDOH Food Worry 1 [employer]: Start: 04-16-2021 History SDOH Transpo rt Med 2 [employer]: Evaluation note Note Date & Type Note Facility Evaluation note Diagnosis Wellness examination documented in this encounter [employer]: Evaluation note Note Date & Type Note Facility Evaluation note Diagnosis Women's annual routine gynecological examination documented in this encounter [employer] Phone: Evaluation note Note Date & Type Note Facility Evaluation note Diagnosis Screening for diabetes mellitus Screening cholesterol level Screening for lipoid disorders documented in this encounter ANDRÉS MARTINEZ [employer] Phone: Assessments Diagnosis Irregular menses Irregular menstrual cycle Advance Directives No Advanced Directives Records FoundDocuments on File Type Date 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 Advance Directives and Living Will Power of Floor Waxer Latest Code Status on File Code Status Date Activated Date Inactivated Comments Full Code 09/13/2015 8:45 PM 09/14/2015 5:05 PM Documents on File Type Date 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 ACP-Advance Directive ACP-Power of Floor Waxer Summary Purpose Family History No Family History Records FoundNo Family History Records Found Additional Source Comments Care Teams (unrecognized sec tion and content) Instrument Repair Technician Relationship Specialty Start Date End Date Gunnar Palacios MD [address] [place] [address] [id number] PCP - General Family Medicine 09/22/15 Instrument Repair Technician Relationship Specialty Start Date End Date Gunnar Palacios MD [address] [place] [address] [id number] PCP - General Family Medicine 09/22/15 INFORMATION SOURCE (unrecogn ized section and content) DATE CREATED AUTHOR 10/21/2023 Hiwot henderson DATE CREATED AUTHOR REYMUNDO MARQUEZ 02/21/2024 [facility] EPIC FOR RECORDS PERTAINING TO PATIENTS WHO ARE [...] BE BASED ON THE PRIMARY CLINICAL RECORDS. [employer] [facility]. provides no warranty or guarantee of the accuracy or completeness of information in this document.
[2024-02-28 08:54] LABS: BOX Test Sent Out Y
[2024-02-28 08:59] LABS: Basophils Percent Auto 0.3 % (0.2-2.0); Eosinophils Absolute Auto 0.1 10^3/uL (0.0-0.7); Eosinophils Percent Auto 0.6 % (0.9-7.0); Hematocrit 37.2 % (36.0-48.0); Hemoglobin 12.4 g/dL (12.0-16.0); Immature Granulocytes Abs Auto 0.03 10^3/uL (0.00-0.03); Immature Granulocytes Pct Auto 0.3 % (0.0-0.5); Lymphocytes Absolute Auto 3.2 10^3/uL (1.2-3.8); Lymphocytes Percent Auto 27.4 % (20.5-60.0); Mean Corpuscular HGB Conc 33.3 g/dL (29.9-35.2); Mean Corpuscular Hemoglobin 28.6 pg (26.7-34.0); Mean Corpuscular Volume 85.7 fL (81.0-99.0); Mean Platelet Volume 8.8 fL (9.5-13.5); Monocytes Absolute Auto 0.5 10^3/uL (0.3-0.8); Monocytes Percent Auto 4.3 % (1.7-12.0); Neutrophils Absolute Auto 7.8 10^3/uL (1.4-6.5); Neutrophils Percent Auto 67.1 % (43.0-75.0); Platelet Count 303 10^3/uL (150-450); Red Blood Count 4.34 10^6/uL (4.20-5.40); Red Cell Distribution Width 13.4 % (11.0-15.0); White Blood Count 11.7 10^3/uL (4.0-11.0)
[2024-02-28 09:45] LABS: Estimated Average Glucose 105 mg/dL; Glycohemoglobin A1C 5.3 % (4.5-6.2)
[2024-02-29 08:08] LABS: HBsAg Screen Negative (Negative); HCV Ab Non Reactive (Non Reactive); HIV Ab/p24 Ag Screen Non Reactive (Non Reactive); Rubella Antibodies, IgG <0.90 index (Immune >0.99)
[2024-02-29 11:16] LABS: Rapid Plasma Reagin, Quant Non Reactive titer (NonRea<1:1)
== END 2024-02-28 08:28 | disposition home or self-care (01) ==
LOC: LAB 08:28
PROVIDERS: Visit Provider Obstetrics & Gynecology
DX: Z36.0 Encounter for antenatal screening for chromosomal anomalies (principal); N92.6 Irregular menstruation, unspecified
CPT/HCPCS: 36415; 83036; 85025; 86592; 86762; 86803; 86850; 86900; 86901; 87086; 87150; 87186; 87340; 87389

== ENCOUNTER 2024-03-09 13:57 | Outpatient (OUT) | payer OTHER, SELFPAY ==
--- NOTE | 2024-03-09 | US_ITS ---
[place] [address] Patient Name: LAURA OROSCO MRN: [id number] date: 1995 Sex: F Assigned Patient Location: US Current Patient Location: Accession/Order Number: [id number] Exam Date: 03/09/2024 14:00 Report Date: 03/09/2024 14:34 At the request of: ЕКАТЕРИНА BARBOZA Procedure: US OB cervical length EXAMINATION: US OB cervical length HISTORY: VAGINAL BLEEDING, SCREENING FOR CERVICAL LENGTH Z36.86 COMPARISON: No relevant comparison available. FINDINGS: position: Variable CRL: 4.91 cm, 11 weeks 5 days Gestational sac normal morphology Heart rate: 160 bpm Cervix: 4.1 cm closed Identified in the lower uterine segment is a focal area of hypoechogenicity measuring 1.3 x 1.5 x 1.1 cm Clinical age: 12 weeks 3 days Clinical ALEJANDRA: 09/18/2024 Ultrasound age: 11 weeks 5 days Ultrasound ALEJANDRA: 09/23/2024 US/US OB cervical length IMPRESSION: Area of hypoechogenicity in the lower uterine segment, I suspect perigestational hemorrhage measuring 1.5 cm Viable uterine gestation measuring 11 weeks 5 days Electronically authenticated by: KRISTINE QUINONES Date: 03/09/2024 14:34
== END 2024-03-09 13:58 | disposition home or self-care (01) ==
LOC: US 13:57
PROVIDERS: Visit Provider Obstetrics & Gynecology
DX: Z36.86 Encounter for antenatal screening for cervical length (principal); Z3A.11 11 weeks gestation of pregnancy
CPT/HCPCS: 76817

== ENCOUNTER 2024-03-10 15:48 | Outpatient (OUT) | payer OTHER, SELFPAY ==
--- OUTSIDE RECORDS SUMMARY | 2024-03-10 16:12 | XMS_ITS ---
Patient Summarization (C-CDA 2.1 CCD) Created on: March 10, 2024 LAURA OROSCO : 1995 Sex: Female Author Organization Sample organization Care Team Providers Care Shadowgraph Operator Name Role Phone Wesley Palaciosdmitry Nataliya Primary Care Provider EMILY WARREN Primary Care Unavailable EMILY WARREN Referring Unavailable EMILY WARREN Referring Unavailable EMILY WARREN Primary Care Unavailable EMILY WARREN Referring Unavailable EMILY WARREN Primary Care Unavailable ЕКАТЕРИНА BARBOZA Attending Unavailable JABARISANTOS CAMPAY Attending Unavailable JABARIЕКАТЕРИНА CAMPA Attending Unavailable JABARIЕКАТЕРИНА Attending Unavailable Allergies Allergy Classification Reported Allergen(s) Allergy Type Date of Onset Reaction(s) Facility Cephalosporins (antibiotic) (1 source) cefprozil Drug Allergy 05-10-2013 [facility] (3 sources) cefprozil Drug Allergy 05-10-2013 [facility] [place] Encounters Encounter Date Encounter Type Care Provider Facility Start: 03-09-2024 End: 03-09-2024 ambulatory ЕКАТЕРИНА JABARI Not Available Start: 03-03-2024 End: 03-03-2024 ambulatory ЕКАТЕРИНА JABARI Not Available Start: 02-20-2024 End: 02-20-2024 ambulatory ЕКАТЕРИНА JABARI Not Available Start: 02-16-2024 End: 02-16-2024 ambulatory ЕКАТЕРИНА JABARI Not Available Start: 10-30-2023 End: 10-30-2023 ambulatory ЕКАТЕРИНА JABARI Not Available Start: 10-20-2023 End: 10-21-2023 ambulatory [facility] Start: 07-11-2023 End: 07-12-2023 ambulatory [facility] Start: 05-26-2023 End: 05-27-2023 ambulatory EMILY WARREN [facility] Start: 04-18-2022 End: 04-18-2022 Subsequent hospital visit by physician Gunnar Palacios MD Work Phone: [facility] Comment on above: Screening for diabet es mellitus; Screening cholesterol level Start: 01-30-2022 End: 01-30-2022 Patient encounter procedure Gunnar Palacios MD Work Phone: [facility] Start: 01-30-2022 End: 01-30-2022 Subsequent hospital visit by physician Gunnar Palacios MD Work Phone: [facility] Comment on above: Women's annual routi ne gynecological examination Start: 04-18-2021 End: 04-18-2021 Patient encounter status Gunnar Palacios MD Work Phone: [facility] Start: 04-18-2021 End: 04-18-2021 Subsequent hospital visit by physician Gunnar Palacios MD Work Phone: [facility] Comment on above: Wellness examination Start: 07-31-2019 End: 07-31-2019 Subsequent hospital visit by physician Gunnar Palacios [facility] Comment on above: Irregular menses Immunizations Immunization Date Immunization Notes Care Provider Justine drake 06-15-2015 influenza virus vacc ine, whole virus [facility] 10-06-2013 hepatitis A vaccine, unspecified formulation [facility] , [place] 10-06-2013 tetanus toxoid, redu linda diphtheria toxoid, and acellular pertussis vaccine, adsorbed [facility], [place] 05-25-2013 varicella virus vaccine [facility] 02-25-2013 hepatitis A vaccine, unspecified formulation [facility] [place] 02-25-2013 meningococcal polysaccharide (groups A, C, Y and W-135) diphtheria toxoid conjugate vaccine (MCV4P) [facility], [place] 03-05-2001 diphtheria, tetanus toxoids and acellular pertussis vaccine [facility] 03-05-2001 measles, mumps and r ubella virus vaccine [facility] 03-05-2001 poliovirus vaccine, inactivated [facility] 07-14-1997 diphtheria, tetanus toxoids and acellular pertussis vaccine [facility] 05-09-1997 measles, mumps and r ubella virus vaccine [facility] 05-09-1997 varicella virus vaccine [facility], [place] 1996 diphtheria, tetanus toxoids and acellular pertussis vaccine [facility], [place] 1996 hepatitis B vaccine, unspecified formulation [facility] , [place] 1996 poliovirus vaccine, inactivated [facility], [place] 1996 diphtheria, tetanus toxoids and acellular pertussis vaccine [facility], [place] 1996 haemophilus influenz ae type b vaccine, PRP-OMP conjugate [facility], [place] 1996 poliovirus vaccine, inactivated [facility], [place] 1996 diphtheria, tetanus toxoids and acellular pertussis vaccine [facility] 1996 haemophilus influenz ae type b vaccine, PRP-OMP conjugate [facility], [place] 1996 poliovirus vaccine, inactivated [facility], [place] 1996 haemophilus influenz ae type b vaccine, PRP-OMP conjugate [facility], [place] 1996 hepatitis B vaccine, unspecified formulation [facility] [place] 1996 haemophilus influenz ae type b vaccine, PRP-OMP conjugate [facility], [place] 1996 hepatitis B vaccine, unspecified formulation [facility] [place] Medications Current Medications Medication Drug Class(es) Dates [...] (with breakfast) 90 tablet 11 09/07/2019 Active Payers Date Payer Category Payer Unknown [id number] 2021 Unknown [id number] 2020 Unknown [id number] 2016 Unknown [employer] [facility] xxxxxxxxxxxx 2016-Present [phone] [address] [place] [address] xxxxxxxxxxxx [id number] 1995 Unknown [id number] 1995 Unknown [id number] 1996 Unknown [id number] 1996 Unknown [id number] 9 1995 Unknown [id number] 9 1996 Unknown [id number] 9 1996 Unknown [id number] 9 1995 Unknown [id number] Plan of Treatment Date Care Activity Detail Author Start: 01-30-2025 Screening for malign ant neoplasm of cervix Pap smear [facility] Start: 10-06-2023 DTaP/Tdap/Td vaccine (7 - Td or Tdap) DTaP/Tdap/Td vaccine (7 - Td or Tdap) [facility] Start: 10-06-2023 DTaP/Tdap/Td vaccine (7 - Td) DTaP/Tdap/Td vaccine (7 - Td) [place], [place] Start: 02-05-2023 End: 02-05-2023 Patient encounter procedure 02/05/2023 Office Visit Obstetrics and Gynecology Sarah Horn PA-C [address] [place] [address] [facility] Start: 05-16-2022 Influenza vaccination [facility] Start: 04-19-2022 End: 04-19-2022 Patient encounter procedure 04/19/2022 Office Visit Primary Care Gunnar Palacios MD [address] [place], [place] [id number] [facility] Start: 04-16-2022 Depression Screen Depression Screen [facility] Start: 05-16-2021 Influenza vaccination Flu vaccine (# 1) [facility] Work Phone: Start: 08-03-2019 End: 08-03-2019 Office Visit 08/03/2019 Office Visit Obstetrics and Gynecology [facility] [employer] Start: 05-16-2019 Influenza vaccination Flu vaccine (# 1) [place], [place] Start: 04-02-2017 Chlamydia screen Chlamydia screen [place], [place] Start: 04-02-2017 Screening for Chlamy daniella trachomatis Chlamydia screen [facility] Start: 2017 Cervical cancer screen Cervical canc er screen [place], [place] Start: 2017 Screening for malign ant neoplasm of cervix [facility] Start: 2014 Hepatitis C screening Hepatitis C sc reen [facility] Start: 2011 HIV screen HIV screen [place], [place] Start: 2008 COVID-19 Vaccine (1) COVID-19 Vaccin e (1) [facility] Phone: Start: 2007 HPV vaccine (1 - 2-d ose series) HPV vaccine (1 - 2-dose series) [facility] Start: 2007 HPV vaccine (1 - Fem rahul 2-dose series) HPV vaccine (1 - Female 2-dose series) [place] Start: 2001 COVID-19 Vaccine (1) COVID-19 Vaccin e (1) [facility] Start: 1996 COVID-19 Vaccine (#1) COVID-19 Vacci ne (#1) ANDRÉS MARTINEZ [facility] Start: 1996 Hepatitis C screening Hepatitis C sc reen [facility] Phone: End: 01-30-2022 Cytopathology procedure, preparation of smear, genital source [facility] Routine Women's annual routine gynecological examination 1 Occurrences starting 01/30/2022 until 01/30/2022 [facility] Phone: Comment on above: 1 Occurrences starti [...] MD Work Phone: Start: 04-18-2021 Lipid panel Gnunar Palacios MD Work Phone: Start: 07-31-2019 Assay of insulin total Olga Osborne Chuck Hernandez Work Phone: Start: 07-31-[address] gtt 3 specimens Olga Woods David Work Phone: Start: 07-31-2019 Assay of thyroid stimulating hormone tsh Olga Osborne Chuck Hernandez Work Phone: Results Test Name Value Interpretation Reference Range Facil ity CBCon 10-20-2023 Erythrocyte distribution width (RBC) [Ratio] 13.3 % Normal 11.8-14.4 [facility] Comment on above: Performed By: #### C P, CBC #### [address] [place] [address] Administrative Secretary: Robert Casiano MD #### GLYHGB #### [address] [id number] Administrative Secretary: Ivan Perez MD Hematocrit (Bld) [Volume fraction] 42.6 % Normal 36.3-47.1 [facility] Comment on above: Performed By: #### C P, CBC #### [address] [place] [id number] Administrative Secretary: Robert Casiano MD #### GLYHGB #### [address] [id number] Administrative Secretary: Ivan Perez MD Hemoglobin (Bld) [Mass/Vol] 13.6 g/dL Normal 11.9-15.1 [facility] Comment on above: Performed By: #### C P, CBC #### [address] [place] [id number] Administrative Secretary: Robert Casiano MD #### GLYHGB #### [address] [address] Administrative Secretary: Ivan Perez MD MCH (RBC) [Entitic mass] 28.3 pg Normal 25.2-33.5 [facility] Comment on above: Performed By: #### C P, CBC #### [address] [place] [address] Administrative Secretary: Robert Casiano MD #### GLYHGB #### [address] [id number] Administrative Secretary: Ivan Perez MD MCHC (RBC) [Mass/Vol] 31.9 g/dL Normal 28.4-34.8 [facility] Comment on above: Performed By: #### C P, CBC #### [facility] [address] [place] [address] [place] [address] Administrative Secretary: Robert Casiano MD #### GLYHGB #### [address] [phone] Administrative Secretary: Ivan Perez MD MCV (RBC) [Entitic vol] 88.6 fL Normal 82.6-102.9 [facility] Comment on above: Performed By: #### C P, CBC #### [address] [place] [id number] Administrative Secretary: Robert Casiano MD #### GLYHGB #### [address] [id number] Administrative Secretary: Ivan Perez MD NRBC Automated 0.0 per 100 WBC Normal 0.0 [facility] Comment on above: Performed By: #### C P, CBC #### [address] [place] [id number] Administrative Secretary: Robert Casiano MD #### GLYHGB #### [address] [address] Administrative Secretary: Ivan Perez MD Platelet mean volume (Bld) [Entitic vol] 9.1 fL Normal 8.1-13.5 [facility] Comment on above: Performed By: #### C P, CBC #### [address] [place] [id number] Administrative Secretary: Robert Casiano MD #### GLYHGB #### [address] [address] Administrative Secretary: Ivan Perez MD Platelets (Bld) [#/Vol] 322 10*3/uL Normal 138-453 [facility] Comment on above: Performed By: #### C P, CBC #### [address] [place] [address] Administrative Secretary: Robert Casiano MD #### GLYHGB #### [id number] [place], [place] [phone] Administrative Secretary: Ivan Perez MD RBC (Bld) [#/Vol] 4.81 10*6/uL Normal 3.95-5.11 [facility] Comment on above: Performed By: #### C P, CBC #### [address] [place] [address] Administrative Secretary: Robert Casiano MD #### GLYHGB #### [address] [id number] Administrative Secretary: Ivan Perez MD WBC (Bld) [#/Vol] 7.9 10*3/uL Normal 3.5-11.3 [facility] Comment on above: Performed By: #### C P, CBC #### [address] [place] [address] Administrative Secretary: Robert Casiano MD #### GLYHGB #### [address] [id number] Administrative Secretary: Ivan Perez MD Comp Metabolic Profon 2023 Albumin [Mass/Vol] 4.3 g/dL Normal 3.5-5.2 [facility] Comment on above: Performed By: #### C P, CBC #### [address] [place] [address] Administrative Secretary: Robert Casiano MD #### GLYHGB #### [id number] [place], [place] [id number] Administrative Secretary: Ivan Perez MD Albumin/Glob Ratio 1.4 Normal 1.0-2.5 [facility] Comment on above: Performed By: #### C P, CBC #### [facility] [address] [place], [place] [id number] Administrative Secretary: Robert Casiano MD #### GLYHGB #### [address] [address] Administrative Secretary: Ivan Perez MD Alkaline Phos 49 U/L Normal 35-104 [facility] Comment on above: Performed By: #### C P, CBC #### [facility] [address] [place], [place] [phone] Administrative Secretary: Robert Casiano MD #### GLYHGB #### [address] [address] Administrative Secretary: Ivan Perez MD ALT [Catalytic activity/Vol] 29 U/L Normal 5-33 [facility] Comment on above: Performed By: #### C P, CBC #### [facility] [address] [place], [place] [phone] Administrative Secretary: Robert Casiano MD #### GLYHGB #### [address] [address] Administrative Secretary: Ivan Perez MD Anion gap [Moles/Vol] 12 mmol/L Normal 9-17 [facility] Comment on above: Performed By: #### C P, CBC #### [facility] [address] [place], [place] [id number] Administrative Secretary: Robert Casiano MD #### GLYHGB #### [address] [address] Administrative Secretary: Ivan Perez MD AST [Catalytic activity/Vol] 25 U/L Normal <32 [facility] Comment on above: Performed By: #### C P, CBC #### [facility] [address] [place], [place] [id number] Administrative Secretary: Robert Casiano MD #### GLYHGB #### [id number] [place], [place] [phone] Administrative Secretary: Ivan Perez MD Bilirubin [Mass/Vol] 0.2 mg/dL Low 0.3-1.2 [facility] Comment on above: Performed By: #### C P, CBC #### [facility] [address] [place] [address] [address] [place], [place] [phone] Administrative Secretary: Robert Casiano MD #### GLYHGB #### [address] [id number] Administrative Secretary: Ivan Perez MD BUN/CRE Ratio 28 High 9-20 [facility] Comment on above: Performed By: #### C P, CBC #### [facility] [address] [place] [address] Dr[address] [place], [place] [phone] Administrative Secretary: Robert Casiano MD #### GLYHGB #### [address] [address] Administrative Secretary: Ivan Perez MD Calcium [Mass/Vol] 9.1 mg/dL Normal 8.6-10.4 [facility] Comment on above: Performed By: #### C P, CBC #### [facility] [address] [place] [address] [place] [place], [place] [phone] Administrative Secretary: Robert Casiano MD #### GLYHGB #### [address] [place] [address] Administrative Secretary: Ivan Perez MD Chloride [Moles/Vol] 108 mmol/L High 98-107 [facility] Comment on above: Performed By: #### C P, CBC #### [facility] [address] [place] [address] Dr[address] [place], [place] [phone] Administrative Secretary: Robert Casiano MD #### GLYHGB #### [id number] [place], [place] [phone] Administrative Secretary: Ivan Perez MD CO2 [Moles/Vol] 24 mmol/L Normal 20-31 [facility] Comment on above: Performed By: #### C P, CBC #### [facility] [address] [place], [place] [phone] Administrative Secretary: Robert Casiano MD #### GLYHGB #### [id number] [place], [place] [id number] Administrative Secretary: Ivan Perez MD Creatinine [Mass/Vol] 0.6 mg/dL Normal 0.5-0.9 [facility] Comment on above: Performed By: #### C P, CBC #### [facility] [address] [place] [address] Administrative Secretary: Robert Casiano MD #### GLYHGB #### [address] [phone] Administrative Secretary: Ivan Perez MD GFR/1.73 sq M.predicted among non-blacks MDRD (S/P/Bld) [Vol rate/Area] mL/min/{1.73_m2} Normal >60 [facility] Comment on above: Result Comment: [...] Performed By: #### C P, CBC #### [facility] [address] [place] [address] Administrative Secretary: Robert Casiano MD #### GLYHGB #### [address] [address] Administrative Secretary: Ivan Perez MD Glucose [Mass/Vol] 90 mg/dL Normal 70-99 [facility] Comment on above: Performed By: #### C P, CBC #### [facility] [address] [place], [place] [phone] Administrative Secretary: Robert Casiano MD #### GLYHGB #### [address] [address] Administrative Secretary: Ivan Perez MD Potassium [Moles/Vol] 4.2 mmol/L Normal 3.7-5.3 [facility] Comment on above: Performed By: #### C P, CBC #### [address] [place], [place] [phone] Administrative Secretary: Robert Casiano MD #### GLYHGB #### [address] [address] Administrative Secretary: Ivan Perez MD Protein [Mass/Vol] 7.3 g/dL Normal 6.4-8.3 [facility] Comment on above: Performed By: #### C P, CBC #### [address] [place], [place] [phone] Administrative Secretary: Robert Casiano MD #### GLYHGB #### [address] [address] Administrative Secretary: Ivan Perez MD Sodium [Moles/Vol] 144 mmol/L Normal 135-144 [facility] Comment on above: Performed By: #### C P, CBC #### [address] [place], [place] [phone] Administrative Secretary: Robert Casiano MD #### GLYHGB #### [address] [address] Administrative Secretary: Ivan Perez MD Urea nitrogen [Mass/Vol] 17 mg/dL Normal 6-20 [facility] Comment on above: Performed By: #### C P, CBC #### [facility] [address] [place] [address] Administrative Secretary: Robert Casiano MD #### GLYHGB #### [address] [phone] Administrative Secretary: Ivan Perez MD Hemoglobin A1Con 10-20-2023 Glucose [Mass/Vol] 105 mg/dL Normal [facility] Comment on above: Result Comment: The ADA and AACC recommend providing the estimated average glucose result to permit better patient understanding of their HBA1c result. Performed By: #### C P, CBC #### [facility] [address] [place] [address] Administrative Secretary: Robert Casiano MD #### GLYHGB #### [address] [address] Administrative Secretary: Ivan Perez MD HbA1c (Bld) [Mass fraction] 5.3 % Normal 4.0-6.0 [facility] Comment on above: Performed By: #### C P, CBC #### [facility] [address] [place] [address] Administrative Secretary: Robert Casiano MD #### GLYHGB #### [address] [address] Administrative Secretary: Ivan Perez MD Lipid Profileon 10-20-2023 Cholesterol [Mass/Vol] 163 mg/dL Normal <200 [facility] Comment on above: Result Comment: Cholesterol Guidelines: <200 Desirable 200-240 Borderline >240 Undesirable Performed By: #### L IPR #### [facility] [address] [place] [address] Administrative Secretary: Ivan Perez MD Cholesterol in HDL [Mass/Vol] 44 mg/dL Normal >40 [facility] Comment on above: Result Comment: HDL Guidelines: <40 Undesirable 40-59 Borderline >59 Desirable Performed By: #### L IPR #### [address] [place] [address] Administrative Secretary: Ivan Perez MD Cholesterol in LDL [Mass/Vol] 100 mg/dL Normal 0-130 [facility] Comment on above: Result Comment: LDL Guidelines: <100 Desirable 100-129 Near to/above Desirable 130-159 Borderline >159 Undesirable Direct (measured) LDL and calculated LDL are not interchangeable tests. Performed By: #### L IPR #### [address] [address] Administrative Secretary: Ivan Perez MD Cholesterol.total/Ch olesterol in HDL [Mass ratio] 3.7 {ratio} Normal <5 [facility] Comment on above: Performed By: #### L IPR #### [address] [address] Administrative Secretary: Ivan Perez MD Triglyceride [Mass/Vol] 94 mg/dL Normal <150 [facility] Comment on above: Result Comment: Triglyceride Guidelines: <150 Desirable 150-199 Borderline 200-499 High >499 Very high Based on AHA Guidelines for fasting triglyceride, June 2012. Performed By: #### L IPR #### [address] [address] Administrative Secretary: Ivan Perez MD Tofte 07-11-2023 ALT [Catalytic activity/Vol] 32 U/L Normal 5-33 [facility] Comment on above: Performed By: #### A ST, ALT #### [facility] [address] [place] [address] Administrative Secretary: MD Yesi Fritz 07-11-2023 AST [Catalytic activity/Vol] 23 U/L Normal <32 [facility] Comment on above: Performed By: #### A ST, ALT #### [facility] [address] [place] [address] Administrative Secretary: Robert Casiano MD TSH w/reflex to FT4on 2022 Thyroid Stim. Horm. 2.14 uIU/mL Normal 0.30-5.00 [facility] Comment on above: Performed By: #### T SHX #### [facility] [address] [place] [address] Administrative Secretary: Robert Casiano MD Glucose, Fastingon Glucose [Mass/Vol] 77 mg/dL 70 - 99 mg/dL [facility] Lipid Panelon 04-18-2022 Cholesterol [Mass/Vol] 194 mg/dL NINF - 200 mg/dL [facility] Comment on above: Cholesterol Guidelines: <200 Desirable 200-240 Borderline >240 Undesirable Cholesterol in HDL [Mass/Vol] 47 mg/dL 40 - PINF mg/dL [facility] Comment on above: HDL Guidelines: <40 Undesirable 40-59 Borderline >59 Desirable Cholesterol in LDL [Mass/Vol] 129 mg/dL 0 - 130 mg/dL [facility] Comment on above: LDL Guidelines: <100 Desirable 100-129 Near to/above Desirable 130-159 Borderline >159 Undesirable Direct (measured) LDL and calculated LDL are not interchangeable tests. Cholesterol.total/Ch olesterol in HDL [Mass ratio] 4.1 {ratio} NINF - 5 [facility] Triglyceride [Mass/Vol] 89 mg/dL NINF - 150 mg/dL [facility] Comment on above: Triglyceride Guidelines: <150 Desirable 150-199 Borderline 200-499 High >499 Very high Based on AHA Guidelines for fasting triglyceride, June 2012. [facility] Glucose, FastingOrdered By: Gunnar Palacios on 04-18-2021 Glucose [Mass/Vol] 85 mg/dL 70 - 99 mg/dL [facility] Work Phone: [facility] Work Phone: Lipid PanelOrdered By: Wesley Palacios on 04-18-2021 Cholesterol [Mass/Vol] 180 mg/dL <200 [facility] Work Phone: Comment on above: Cholesterol Guidelines: <200 Desirable 200-240 Borderline >240 Undesirable Cholesterol in HDL [Mass/Vol] 45 mg/dL >40 [facility] Phone: Comment on above: HDL Guidelines: <40 Undesirable 40-59 Borderline >59 Desirable Cholesterol in LDL [Mass/Vol] 113 mg/dL 0 - 130 mg/dL [facility] Phone: Comment on above: LDL Guidelines: <100 Desirable 100-129 Near to/above Desirable 130-159 Borderline >159 Undesirable Direct (measured) LDL and calculated LDL are not interchangeable tests. Cholesterol in VLDL [Mass/Vol] NOT REPORTED 1 - 30 mg/dL [facility] Phone: Cholesterol.total/Ch olesterol in HDL [Mass ratio] 4 {ratio} <5 [facility] Phone: Triglyceride [Mass/Vol] 112 mg/dL <150 [facility] Phone: Comment on above: Triglyceride Guidelines: <150 Desirable 150-199 Borderline 200-499 High >499 Very high Based on AHA Guidelines for fasting triglyceride, June 2012. [facility] Phone: Glucose, Fastingon 9 Glucose [Mass/Vol] 106 mg/dL High 70 - 99 mg/dL [facility] [employer] [place], [place] Interpretation and review of laboratory results [facility]normal [facility] [place] [place] Insulin, Totalon 07-31-2019 INR Coag (Bld) [Relative time] [facility] [place] [place] Comment on above: Fastin.6-24.9 30 min: 20-112 60 min: 29-88 90 min: 26-84 120 min: 22-79 Insulin 44.5 mU/L [facility] [place] [place] Insulin Comment NOT REPORTED [place], [place] TSHon 07-31-2019 TSH Qn 2.26 m[IU]/L [facility] [place] Social History Date Type Detail Facility Start: 07-16-2017 End: 04-16-2021 Tobacco use and exposure Never used [employer] Phone: Start: 04-16-2021 History SDOH Financial 5 [employer] Phone: Start: 04-16-2021 History SDOH Food Worry 1 [employer] Phone: Start: 04-16-2021 History SDOH Transpo rt Med 2 [employer] Phone: Start: 07-16-2017 End: 07-13-2019 Tobacco smoking status NHIS Never smoker [employer] Start: 07-13-2019 End: 01-30-2022 Alcohol intake Current non-drinker of alcohol (finding) [employer] [place] Start: 1995 Sex Assigned At Not on file [facility] [place] [place] Evaluation note Note Date & Type Note Facility Evaluation note Diagnosis Wellness examination documented in this encounter [employer] Phone: Evaluation note Note Date & Type Note Facility Evaluation note Diagnosis Women's annual routine gynecological examination documented in this encounter [employer] Phone: Evaluation note Note Date & Type Note Facility Evaluation note Diagnosis Screening for diabetes mellitus Screening cholesterol level Screening for lipoid disorders documented in this encounter [facility] [employer] Phone: Assessments Diagnosis Irregular menses Irregular menstrual cycle Advance Directives No Advanced Directives Records FoundDocuments on File Type Date Recorded Patient Safety Administrator Expl anation Advance Directives and Living Will Power of Director Clinical Operations Latest Code Status on File Code Status Date Activated Date Inactivated Comments Full Code 09/13/2015 8:45 PM 09/14/2015 5:05 PM Documents on File Type Date Recorded Patient Safety Administrator Expl anation ACP-Advance Directive ACP-Power of Director Clinical Operations Summary Purpose Family History No Family History Records FoundNo Family History Records Found Additional Source Comments Care Teams (unrecognized sec tion and content) Shadowgraph Operator Relationship Specialty Start Date End Date Gunnar Palacios MD [address] [place] [id number] PCP - General Family Medicine 09/22/15 Shadowgraph Operator Relationship Specialty Start Date End Date Gunnar Palacios MD [address] [place] [address] [address] [place] [address] PCP - General Family Medicine 09/22/15 INFORMATION SOURCE (unrecogn ized section and content) DATE CREATED AUTHOR 10/21/2023 Hiwot henderson DATE CREATED AUTHOR AUTHORCorbin MARQUEZ 03/10/2024 [facility] FOR RECORDS PERTAINING TO PATIENTS WHO ARE [...] BE BASED ON THE PRIMARY CLINICAL RECORDS. [employer] provides no warranty or guarantee of the accuracy or completeness of information in this document.
[2024-03-10 16:19] LABS: BOX Test Sent Out Y
== END 2024-03-10 15:49 | disposition home or self-care (01) ==
PROVIDERS: Visit Provider Obstetrics & Gynecology
DX: Z36.0 Encounter for antenatal screening for chromosomal anomalies (principal)
CPT/HCPCS: 36415

== ENCOUNTER 2024-03-31 20:19 | Outpatient (REF) | payer OTHER, SELFPAY ==
--- OUTSIDE RECORDS SUMMARY | 2024-03-31 20:24 | XMS_ITS | CCD ---
Author Organization [facility] Inform ion Partnership [facility] Care Team Providers Care Tub Attendant Name Role Phone Philip Luis Antoniofrancdmitry Nataliya Primary Care Provider EMILY WARREN Primary Care Unavailable EMILY WARREN Referring Unavailable EMILY WARREN Referring Unavailable EMILY WARREN Primary Care Unavailable EMILY WARREN Referring Unavailable EMILY WARREN Primary Care Unavailable ЕКАТЕРИНА BARBOZA Attending Unavailable ЕКАТЕРИНА BARBOZA Attending Unavailable ЕКАТЕРИНА BARBOZA Attending Unavailable ЕКАТЕРИНА BARBOZA Attending Unavailable Allergies Allergy Classification Reported Allergen(s) Allergy Type Date of Onset Reaction(s) Facility Cephalosporins (antibiotic) (1 source) cefprozil Drug Allergy 05-10-2013 [facility] (3 sources) cefprozil Drug Allergy 05-10-2013 [place], [place] Medications Current Medications Medication Drug Class(es) Dates Sig (Normalized) Sig (Original) metFORMIN hydrochloride 500 mg oral tablet (3 sources) Biguanide Start: 01-30-2022 take 3 tablets by mouth once daily at breakfast metFORMIN (GLUCOPHAGE) 500 MG tablet Take 3 tablets by mouth daily (with breakfast) 90 tablet 01/30/2022 Active Start: 09-07-2019 take 3 tablets by mo uth once daily at breakfast metFORMIN (GLUCOPHAGE) 500 MG tablet Take 3 tablets by mouth daily (with breakfast) 90 tablet 09/07/2019 Active Problems Active Problems Problem Classification [...] width (RBC) [Ratio] 13.3 % Normal 11.8-14.4 [facility] Comment on above: Performed By: #### C P, CBC #### [facility] [address] [place] [address] Cig[employer] Head Pegger: Robert Casiano MD #### GLYHGB #### [facility] [address] [place] [address] Cigar Head Pegger: Ivan Perez MD Hematocrit (Bld) [Volume fraction] 42.6 % Normal 36.3-47.1 [facility] Comment on above: Performed By: #### C P, CBC #### [address] [place], [place] [id number] Cigar Head Pegger: Robert Casiano MD #### GLYHGB #### [address] [id number] Cig[employer] Head Pegger: Ivan Perez MD Hemoglobin (Bld) [Mass/Vol] 13.6 g/dL Normal 11.9-15.1 [facility] Comment on above: Performed By: #### C P, CBC #### [address] [place] [id number] Cigar Head Pegger: Robert Casiano MD #### GLYHGB #### [address] [id number] Cigar Head Pegger: Ivan Perez MD MCH (RBC) [Entitic mass] 28.3 pg Normal 25.2-33.5 [facility] Comment on above: Performed By: #### C P, CBC #### [address] [place] [id number] Cigar Head Pegger: Robert Casiano MD #### GLYHGB #### [address] [id number] Cigar Head Pegger: Ivan Perez MD MCHC (RBC) [Mass/Vol] 31.9 g/dL Normal 28.4-34.8 [facility] Comment on above: Performed By: #### C P, CBC #### [address] [place] [address] Cigar Head Pegger: Robert Casiano MD #### GLYHGB #### [address] [id number] Cigar Head Pegger: Ivan Perez MD MCV (RBC) [Entitic vol] 88.6 fL Normal 82.6-102.9 [facility] Comment on above: Performed By: #### C P, CBC #### [facility] [address] [place] [address] Dr. [place], [place] 1055983 Cigar Head Pegger: Robert Casiano MD #### GLYHGB #### [address] [id number] Cigar Head Pegger: Ivan Perez MD NRBC Automated 0.0 per 100 WBC Normal 0.0 [facility] Comment on above: Performed By: #### C P, CBC #### [address] [place] [id number] Cigar Head Pegger: Robert Casiano MD #### GLYHGB #### [address] [address] Cigar Head Pegger: Ivan Perez MD Platelet mean volume (Bld) [Entitic vol] 9.1 fL Normal 8.1-13.5 [facility] Comment on above: Performed By: #### C P, CBC #### [address] [place] [id number] Cigar Head Pegger: Robert Casiano MD #### GLYHGB #### [address] [address] Cigar Head Pegger: Ivan Perez MD Platelets (Bld) [#/Vol] 322 10*3/uL Normal 138-453 [facility] Comment on above: Performed By: #### C P, CBC #### [address] [place], [place] [id number] Cigar Head Pegger: Robert Casiano MD #### GLYHGB #### [address] [id number] Cigar Head Pegger: Ivan Perez MD RBC (Bld) [#/Vol] 4.81 10*6/uL Normal 3.95-5.11 [facility] Comment on above: Performed By: #### C P, CBC #### [address] [place] [id number] ( Cigar Head Pegger: Robert Casiano MD #### GLYHGB #### [address] [id number] Cigar Head Pegger: Ivan Perez MD WBC (Bld) [#/Vol] 7.9 10*3/uL Normal 3.5-11.3 [facility] Comment on above: Performed By: #### C P, CBC #### [address] [place] [id number] Cigar Head Pegger: Robert Casiano MD #### GLYHGB #### [address] [address] Cigar Head Pegger: Ivan Perez MD Comp Metabolic Profon 2023 Albumin [Mass/Vol] 4.3 g/dL Normal 3.5-5.2 [facility] Comment on above: Performed By: #### C P, CBC #### [address] [place] [id number] Cigar Head Pegger: Robert Casiano MD #### GLYHGB #### [address] [address] Cigar Head Pegger: Ivan Perez MD Albumin/Glob Ratio 1.4 Normal 1.0-2.5 [facility] Comment on above: Performed By: #### C P, CBC #### [address] [place] [id number] ( Cigar Head Pegger: Robert Casiano MD #### GLYHGB #### [address] [id number] Cigar Head Pegger: Ivan Perez MD Alkaline Phos 49 U/L Normal 35-104 [facility] Comment on above: Performed By: #### C P, CBC #### [facility] [address] [place], [place] [phone] Cigar Head Pegger: Robert Casiano MD #### GLYHGB #### [address] [address] Cigar Head Pegger: Ivan Perez MD ALT [Catalytic activity/Vol] 29 U/L Normal 5-33 [facility] Comment on above: Performed By: #### C P, CBC #### [facility] [address] [place], [place] [id number] Cigar Head Pegger: Robert Casiano MD #### GLYHGB #### [address] [id number] Cigar Head Pegger: Ivan Perez MD Anion gap [Moles/Vol] 12 mmol/L Normal 9-17 [facility] Comment on above: Performed By: #### C P, CBC #### [facility] [address] [place], [place] 5607183 Cigar Head Pegger: Robert Casiano MD #### GLYHGB #### [address] [address] Cigar Head Pegger: Ivan Perez MD AST [Catalytic activity/Vol] 25 U/L Normal <32 [facility] Comment on above: Performed By: #### C P, CBC #### [facility] [address] [place], [place] [phone] Cigar Head Pegger: Robert Casiano MD #### GLYHGB #### [address] [address] Cigar Head Pegger: Ivan Perez MD Bilirubin [Mass/Vol] 0.2 mg/dL Low 0.3-1.2 [facility] Comment on above: Performed By: #### C P, CBC #### [facility] [address] [place], [place] 6592883 Cigar Head Pegger: Robert Casiano MD #### GLYHGB #### [facility] [address] [place] [address] Cigar Head Pegger: Ivan Perez MD BUN/CRE Ratio 28 High 9-20 [facility] Comment on above: Performed By: #### C P, CBC #### [facility] [address] [place], [place] 1984[address] Cigar Head Pegger: Robert Casiano MD #### GLYHGB #### [address] [address] Cigar Head Pegger: Ivan Perez MD Calcium [Mass/Vol] 9.1 mg/dL Normal 8.6-10.4 [facility] Comment on above: Performed By: #### C P, CBC #### [facility] [address] [place] [address] [place] [place], [place] [phone] Cigar Head Pegger: Robert Casiano MD #### GLYHGB #### [address] [address] Cigar Head Pegger: Ivan Perez MD Chloride [Moles/Vol] 108 mmol/L High 98-107 [facility] Comment on above: Performed By: #### C P, CBC #### [facility] [address] [place], [place] 6697083 Cigar Head Pegger: Robert Casiano MD #### GLYHGB #### [address] [address] Cigar Head Pegger: Ivan Perez MD CO2 [Moles/Vol] 24 mmol/L Normal 20-31 [facility] Comment on above: Performed By: #### C P, CBC #### [facility] [address] [place], [place] [phone] Cigar Head Pegger: Robert Casiano MD #### GLYHGB #### [facility] [address] [place], [place] 6691008 Cigar Head Pegger: Ivan Perez MD Creatinine [Mass/Vol] 0.6 mg/dL Normal 0.5-0.9 [facility] Comment on above: Performed By: #### C P, CBC #### [facility] [address] [place] [address] [place] [address] Cigar Head Pegger: Robert Casiano MD #### GLYHGB #### [place] [address] [place], [place] [phone] Cigar Head Pegger: Ivan Perez MD GFR/1.73 sq M.predicted among non-blacks MDRD (S/P/Bld) [Vol rate/Area] mL/min/{1.73_m2} Normal >60 [facility] Comment on above: Result Comment: These [...] Performed By: #### C P, CBC #### [address] [place] [address] Cigar Head Pegger: Robert Casiano MD #### GLYHGB #### [facility] [address] [place], [place] [address] Cigar Head Pegger: Ivan Perez MD Glucose [Mass/Vol] 90 mg/dL Normal 70-99 [facility] Comment on above: Performed By: #### C P, CBC #### [address] [place] [address] Cigar Head Pegger: Robert Casiano MD #### GLYHGB #### [facility] [address] [place] [address] Cigar Head Pegger: Ivan Perez MD Potassium [Moles/Vol] 4.2 mmol/L Normal 3.7-5.3 [facility] Comment on above: Performed By: #### C P, CBC #### [facility] [address] [place], [place] 0372483 Cigar Head Pegger: Robert Casiano MD #### GLYHGB #### [address] [address] Cigar Head Pegger: Ivan Perez MD Protein [Mass/Vol] 7.3 g/dL Normal 6.4-8.3 [facility] Comment on above: Performed By: #### C P, CBC #### [facility] [address] [place] [address] [place], [place] 9173683 Cigar Head Pegger: Robert Casiano MD #### GLYHGB #### [address] [address] Cigar Head Pegger: Ivan Perez MD Sodium [Moles/Vol] 144 mmol/L Normal 135-144 [facility] Comment on above: Performed By: #### C P, CBC #### [facility] [address] [place] [address] [place], [place] 611[address] Cigar Head Pegger: Robert Casiano MD #### GLYHGB #### [address] [address] Cigar Head Pegger: Ivan Perez MD Urea nitrogen [Mass/Vol] 17 mg/dL Normal 6-20 [facility] Comment on above: Performed By: #### C P, CBC #### [facility] [address] [place] [address] [place], [place] [phone] Cigar Head Pegger: Robert Casiano MD #### GLYHGB #### [address] [address] Cigar Head Pegger: Ivan Perez MD Hemoglobin A1Con 10-20-2023 Glucose [Mass/Vol] 105 mg/dL Normal [facility] Comment on above: Result Comment: The ADA and AACC recommend providing the estimated average glucose result to permit better patient understanding of their HBA1c result. Performed By: #### C P, CBC #### [facility] [address] [place], [place] [phone] Cigar Head Pegger: Robert Casiano MD #### GLYHGB #### [address] [address] Cigar Head Pegger: Ivan Perez MD HbA1c (Bld) [Mass fraction] 5.3 % Normal 4.0-6.0 [facility] Comment on above: Performed By: #### C P, CBC #### [facility] [address] [place] [address] Cigar Head Pegger: Robert Casiano MD #### GLYHGB #### [address] [address] Cigar Head Pegger: Ivan Perez MD Lipid Profileon 10-20-2023 Cholesterol [Mass/Vol] 163 mg/dL Normal <200 [facility] Comment on above: Result Comment: Cholesterol Guidelines: <200 Desirable 200-240 Borderline >240 Undesirable Performed By: #### L IPR #### [address] [address] Cigar Head Pegger: Ivan Perez MD Cholesterol in HDL [Mass/Vol] 44 mg/dL Normal >40 [facility] Comment on above: Result Comment: HDL Guidelines: <40 Undesirable 40-59 Borderline >59 Desirable Performed By: #### L IPR #### [address] [address] Cigar Head Pegger: Ivan Perez MD Cholesterol in LDL [Mass/Vol] 100 mg/dL Normal 0-130 [facility] Comment on above: Result Comment: LDL Guidelines: <100 Desirable 100-129 Near to/above Desirable 130-159 Borderline >159 Undesirable Direct (measured) LDL and calculated LDL are not interchangeable tests. Performed By: #### L IPR #### [place] [address] [place] [address] Cigar Head Pegger: Ivan Perez MD Cholesterol.total/Ch olesterol in HDL [Mass ratio] 3.7 {ratio} Normal <5 [facility] Comment on above: Performed By: #### L IPR #### [address] [address] Cigar Head Pegger: Ivan Perez MD Triglyceride [Mass/Vol] 94 mg/dL Normal <150 [facility] Comment on above: Result Comment: Triglyceride Guidelines: <150 Desirable 150-199 Borderline 200-499 High >499 Very high Based on AHA Guidelines for fasting triglyceride, June 2012. Performed By: #### L IPR #### [address] [address] Cigar Head Pegger: Ivan Perez MD [place] 07-11-2023 ALT [Catalytic activity/Vol] 32 U/L Normal 5-33 [facility] Comment on above: Performed By: #### A ST, ALT #### [address] [place] [address] Cigar Head Pegger: Robert Casiano MD Yesi 7 AST [Catalytic activity/Vol] 23 U/L Normal <32 [facility] Comment on above: Performed By: #### A ST, ALT #### [facility] [address] [place] [address] Cigar Head Pegger: Robert Casiano MD TSH w/reflex to FT4on 2022 Thyroid Stim. Horm. 2.14 uIU/mL Normal 0.30-5.00 [facility] Comment on above: Performed By: #### T SHX #### [facility] [address] [place] [address] Cigar Head Pegger: Robert Casiano MD Glucose, Fastingon Glucose [Mass/Vol] 77 mg/dL 70 - 99 mg/dL [facility] [employer] [facility] Lipid Panelon 04-18-2022 Cholesterol [Mass/Vol] 194 mg/dL NINF - 200 mg/dL [facility] Comment on above: Cholesterol Guidelines: <200 Desirable 200-240 Borderline >240 Undesirable Cholesterol in HDL [Mass/Vol] 47 mg/dL 40 - PINF mg/dL [facility] Comment on above: HDL Guidelines: <40 Undesirable 40-59 Borderline >59 Desirable Cholesterol in LDL [Mass/Vol] 129 mg/dL 0 - 130 mg/dL [facility] [employer] Comment on above: LDL Guidelines: <100 Desirable 100-129 Near to/above Desirable 130-159 Borderline >159 Undesirable Direct (measured) LDL and calculated LDL are not interchangeable tests. Cholesterol.total/Ch olesterol in HDL [Mass ratio] 4.1 {ratio} NINF - 5 [facility] Triglyceride [Mass/Vol] 89 mg/dL NINF - 150 mg/dL [facility] Comment on above: Triglyceride Guidelines: <150 Desirable 150-199 Borderline 200-499 High >499 Very high Based on AHA Guidelines for fasting triglyceride, June 2012. [facility] Glucose, FastingOrdered By: Gunnar Palacios on 04-18-2021 Glucose [Mass/Vol] 85 mg/dL 70 - 99 mg/dL [facility] [employer] Work Phone: [facility] Phone: Lipid PanelOrdered By: Wesley Palacios on 04-18-2021 Cholesterol [Mass/Vol] 180 mg/dL <200 [facility] Work Phone: Comment on above: Cholesterol Guidelines: <200 Desirable 200-240 Borderline >240 Undesirable Cholesterol in HDL [Mass/Vol] 45 mg/dL >40 [facility] Phone: Comment on above: HDL Guidelines: <40 Undesirable 40-59 Borderline >59 Desirable Cholesterol in LDL [Mass/Vol] 113 mg/dL 0 - 130 mg/dL [facility] Phone: Comment on above: LDL Guidelines: <100 Desirable 100-129 Near to/above Desirable 130-159 Borderline >159 Undesirable Direct (measured) LDL and calculated LDL are not interchangeable tests. Cholesterol in VLDL [Mass/Vol] NOT REPORTED 1 - 30 mg/dL [employer] Phone: Cholesterol.total/Ch olesterol in HDL [Mass ratio] 4 {ratio} <5 [employer] Phone: Triglyceride [Mass/Vol] 112 mg/dL <150 [employer] Phone: Comment on above: Triglyceride Guidelines: <150 Desirable 150-199 Borderline 200-499 High >499 Very high Based on AHA Guidelines for fasting triglyceride, June 2012. [employer] Phone: Glucose, Fastingon 9 Glucose [Mass/Vol] 106 mg/dL High 70 - 99 mg/dL [facility] [employer] [place], [place] Interpretation and review of laboratory results Abnormal [place], [place] Insulin, Totalon 07-31-2019 INR Coag (Bld) [Relative time] [place], [place] Comment on above: Fastin.6-24.9 30 min: 20-112 60 min: 29-88 90 min: 26-84 120 min: 22-79 Insulin 44.5 mU/L [place] Insulin Comment NOT REPORTED [facility] [place], [place] TSHon 07-31-2019 TSH Qn 2.26 m[IU]/L [place], [place] Encounters Encounter Date Encounter Type Care Provider Facility Start: 03-09-2024 End: 03-09-2024 ambulatory ЕКАТЕРИНА JABARI Not Available Start: 03-03-2024 End: 03-03-2024 ambulatory ЕКАТЕРИНА JABARI Not Available Start: 02-20-2024 End: 02-20-2024 ambulatory ЕКАТЕРИНА JABARI Not Available Start: 02-16-2024 End: 02-16-2024 ambulatory ЕКАТЕРИНА JABARI Not Available Start: 10-30-2023 End: 10-30-2023 ambulatory ЕКАТЕРИНА JABARI Not Available Start: 10-20-2023 End: 10-21-2023 ambulatory EMILY WARREN [facility] Start: 07-11-2023 End: 07-12-2023 ambulatory [facility] Start: 05-26-2023 End: 05-27-2023 ambulatory [facility] Start: 04-18-2022 End: 04-18-2022 Subsequent hospital visit by physician Gunnar Palacios MD Work Phone: [facility] Comment on above: Screening for diabet es mellitus; Screening cholesterol level Start: 01-30-2022 End: 01-30-2022 Patient encounter procedure Gunnar Palacios MD Work Phone: [facility] Start: 01-30-2022 End: 01-30-2022 Subsequent hospital visit by physician Gunnar Palacios MD Work Phone: [facility] Comment on above: Women's annual routi ne gynecological examination Start: 04-18-2021 End: 04-18-2021 Patient encounter status Gunnar Palacios MD Work Phone: [facility] Start: 04-18-2021 End: 04-18-2021 Subsequent hospital visit by physician Gunnar Palacios MD Work Phone: [facility] Comment on above: Wellness examination Start: 07-31-2019 End: 07-31-2019 Subsequent hospital visit by physician Gunnar Palacios [facility] Comment on above: Irregular menses Procedures [...] neoplasm of cervix Pap smear [facility] Start: 10-06-2023 DTaP/Tdap/Td vaccine (7 - Td or Tdap) DTaP/Tdap/Td vaccine (7 - Td or Tdap) [facility] Start: 10-06-2023 DTaP/Tdap/Td vaccine (7 - Td) DTaP/Tdap/Td vaccine (7 - Td) [place] Start: 02-05-2023 End: 02-05-2023 Patient encounter procedure 02/05/2023 Office Visit Obstetrics and Gynecology Sarah Horn PA-C [address] [place] [address] [facility] Start: 05-16-2022 Influenza vaccination [facility] Start: 04-19-2022 End: 04-19-2022 Patient encounter procedure 04/19/2022 Office Visit Primary Care Gunnar Palacios MD [address] [place] [address] [facility] Start: 04-16-2022 Depression Screen Depression Screen [facility] Start: 05-16-2021 Influenza vaccination Flu vaccine (# 1) [facility] Work Phone: Start: 08-03-2019 End: 08-03-2019 Office Visit 08/03/2019 Office Visit Obstetrics and Gynecology [facility] [employer] Start: 05-16-2019 Influenza vaccination Flu vaccine (# 1) [place] Start: 04-02-2017 Chlamydia screen Chlamydia screen [place], [place] Start: 04-02-2017 Screening for Chlamy daniella trachomatis Chlamydia screen [facility] Start: 2017 Cervical cancer screen Cervical canc er screen [place] Start: 2017 Screening for malign ant neoplasm of cervix [facility] Start: 2014 Hepatitis C screening Hepatitis C [facility] Start: 2011 HIV screen HIV screen [place], [place] Start: 2008 COVID-19 Vaccine (1) COVID-19 Vaccin e (1) [facility] Work Phone: Start: 2007 HPV vaccine (1 - 2-d ose series) HPV vaccine (1 - 2-dose series) [facility] Start: 2007 HPV vaccine (1 - Fem rahul 2-dose series) HPV vaccine (1 - Female 2-dose series) [place] Start: 2001 COVID-19 Vaccine (1) COVID-19 Vaccin e (1) [facility] Start: 1996 COVID-19 Vaccine (#1) COVID-19 Vacci ne (#1) [facility] Start: 1996 Hepatitis C screening Hepatitis C [facility] Phone: End: 01-30-2022 Cytopathology procedure, preparation of smear, genital source [facility] Lab Routine Women's annual routine gynecological examination 1 Occurrences starting 01/30/2022 until 01/30/2022 [facility] Phone: Comment on above: 1 Occurrences starti ng 01/30/2022 until 01/30/2022 Immunizations Immunization Date Immunization Notes Care Provider Justine drake 06-15-2015 influenza virus vacc ine, [facility] virus [facility] 10-06-2013 hepatitis A vaccine, unspecified formulation [place]ar [place] 10-06-2013 tetanus toxoid, redu linda diphtheria toxoid, and acellular pertussis vaccine, adsorbed [place]ar [place], [place] 05-25-2013 varicella virus vaccine Gunnar daniel [place], [place] 02-25-2013 hepatitis A vaccine, unspecified formulation [facility] , [place] 02-25-2013 meningococcal polysaccharide (groups A, C, Y and W-135) diphtheria toxoid conjugate vaccine (MCV4P) [facility], [place] 03-05-2001 diphtheria, tetanus toxoids and acellular pertussis vaccine [facility], [place] 03-05-2001 measles, mumps and r ubella virus vaccine [facility], [place] 03-05-2001 poliovirus vaccine, inactivated [facility] 07-14-1997 diphtheria, tetanus toxoids and acellular pertussis vaccine [facility], [place] 05-09-1997 measles, mumps and r ubella virus vaccine [facility], [place] 05-09-1997 varicella virus vaccine [facility] 1996 diphtheria, tetanus toxoids and acellular pertussis vaccine [facility], [place] 1996 hepatitis B vaccine, unspecified formulation [facility] , [place] 1996 poliovirus vaccine, inactivated [facility], [place] 1996 diphtheria, tetanus toxoids and acellular pertussis vaccine [facility], [place] 1996 haemophilus influenz ae type b vaccine, PRP-OMP conjugate [facility], [place] 1996 poliovirus vaccine, inactivated [facility], [place] 1996 diphtheria, tetanus toxoids and acellular pertussis vaccine [facility] 1996 haemophilus influenz ae type b vaccine, PRP-OMP conjugate [facility], [place] 1996 poliovirus vaccine, inactivated [facility], [place] 1996 haemophilus influenz ae type b vaccine, PRP-OMP conjugate [facility], [place] 1996 hepatitis B vaccine, unspecified formulation [facility] [place], [place] 1996 haemophilus influenz ae type b vaccine, PRP-OMP conjugate Luis Antoniomarek Palacios [place], [place] 1996 hepatitis B vaccine, unspecified formulation Wesleydmitry Palacios [place], [place] Payers Date Payer Category Payer Unknown [id number] 2021 Unknown [id number] 2020 Unknown [id number] 2016 Unknown [employer] [facility] [employer] [facility] xxxxxxxxxxxx 2016-Present [phone] [address] [place] [address] xxxxxxxxxxxx [id number] 1996 Unknown [id number] 1996 Unknown [id number] 1996 Unknown [id number] 1996 Unknown [id number] 9 1996 Unknown [id number] 9 1996 Unknown [id number] 9 1996 Unknown [id number] 9 1996 Unknown [id number] 9 Social History Date Type Detail Facility Start: 07-16-2017 End: 07-13-2019 Tobacco smoking status NHIS Never smoker [place] Start: 07-13-2019 End: 01-30-2022 Alcohol intake Current non-drinker of alcohol (finding) Hiwot Fuze BARBARA LOPEZ Start: 1995 Sex Assigned At Not on file M sánchez Paloma MobileBARBARA NUNEZ Start: 07-16-2017 End: 04-16-2021 Tobacco use and exposure Never used [employer] Phone: Start: 04-16-2021 History SDOH Financial 5 [employer] Phone: Start: 04-16-2021 History SDOH Food Worry 1 [employer] Phone: Start: 04-16-2021 History SDOH Transpo rt Med 2 [facility] Phone: Evaluation note Note Date & Type Note Facility Evaluation note Diagnosis Wellness examination documented in this encounter [facility] Phone: Evaluation note Note Date & Type Note Facility Evaluation note Diagnosis Women's annual routine gynecological examination documented in this encounter [facility] Phone: Evaluation note Note Date & Type Note Facility Evaluation note Diagnosis Screening for diabetes mellitus Screening cholesterol level Screening for lipoid disorders documented in this encounter [facility] [employer] Phone: Assessments Diagnosis Irregular menses Irregular menstrual cycle Advance Directives No Advanced Directives Records FoundDocuments on File Type Date Recorded Patient Brilliandeer Lopper Expl anation Advance Directives and Living Will Power of Patient Centered Care Specialist Latest Code Status on File Code Status Date Activated Date Inactivated Comments Full Code 09/13/2015 8:45 PM 09/14/2015 5:05 PM Documents on File Type Date Recorded Patient Brilliandeer Lopper Expl anation ACP-Advance Directive ACP-Power of Patient Centered Care Specialist Summary Purpose Family History No Family History Records FoundNo Family History Records Found Additional Source Comments Care Teams (unrecognized sec tion and content) Tub Attendant Relationship Specialty Start Date End Date Gunnar Palacios MD [address] [place] [address] [address] [place] [address] PCP - General Family Medicine 09/22/15 Tub Attendant Relationship Specialty Start Date End Date Gunnar Palacios MD [address] [place] [address] [address] [place] [address] PCP - General Family Medicine 09/22/15 INFORMATION SOURCE (unrecogn ized section and content) DATE CREATED AUTHOR 10/21/2023 Hiwot henderson DATE CREATED AUTHOR AUTHORCorbin MARQUEZ 03/10/2024 [facility] dical Specialists [facility] FOR RECORDS PERTAINING TO PATIENTS WHO [...] BE BASED ON THE PRIMARY CLINICAL RECORDS. [employer] provides no warranty or guarantee of the accuracy or completeness of information in this document.
[2024-04-07 15:09] LABS: Age Gdln ACOG Testing Note (.); IGP, rfx Aptima HPV ASCU Note (.)
== END 2024-03-31 20:20 | disposition home or self-care (01) ==
LOC: LAB 20:19
PROVIDERS: Visit Provider Obstetrics & Gynecology
DX: Z01.419 Encounter for gynecological examination (general) (routine) without abnormal findings (principal)
CPT/HCPCS: 88175

== ENCOUNTER 2024-04-02 12:35 | Outpatient (OUT) | payer OTHER, SELFPAY ==
--- OUTSIDE RECORDS SUMMARY | 2024-04-02 12:44 | XMS_ITS | CCD ---
Author Organization [facility] Inform ion Partnership [facility] Care Team Providers Care Optician Apprentice Name Role Phone Philip Luis Antoniofrancdmitry Nataliya [...] (antibiotic) (1 source) cefprozil Drug Allergy 05-10-2013 [facility] (3 sources) cefprozil Drug Allergy 05-10-2013 [place], [place] Medications Current Medications Medication Drug Class(es) [...] width (RBC) [Ratio] 13.3 % Normal 11.8-14.4 [facility] Comment on above: Performed By: #### C P, CBC #### [facility] [address] [place] [address] [employer] Supervisor: Robert Casiano MD #### GLYHGB #### [facility] [address] [place] [address] [employer] Supervisor: Ivan Perez MD Hematocrit (Bld) [Volume fraction] 42.6 % Normal 36.3-47.1 [facility] Comment on above: Performed By: #### C P, CBC #### [address] [place], [place] [id number] [employer] Supervisor: Robert Casiano MD #### GLYHGB #### [address] [id number] [employer] Supervisor: Ivan Perez MD Hemoglobin (Bld) [Mass/Vol] 13.6 g/dL Normal 11.9-15.1 [facility] Comment on above: Performed By: #### C P, CBC #### [address] [place] [id number] [employer] Supervisor: Robert Casiano MD #### GLYHGB #### [address] [id number] [employer] Supervisor: Ivan Perez MD MCH (RBC) [Entitic mass] 28.3 pg Normal 25.2-33.5 [facility] Comment on above: Performed By: #### C P, CBC #### [address] [place] [id number] [employer] Supervisor: Robert Casiano MD #### GLYHGB #### [address] [id number] [employer] Supervisor: Ivan Perez MD MCHC (RBC) [Mass/Vol] 31.9 g/dL Normal 28.4-34.8 [facility] Comment on above: Performed By: #### C P, CBC #### [address] [place] [address] [employer] Supervisor: Robert Caisano MD #### GLYHGB #### [address] [id number] [employer] Supervisor: Ivan Perez MD MCV (RBC) [Entitic vol] 88.6 fL Normal 82.6-102.9 [facility] Comment on above: Performed By: #### C P, CBC #### [facility] [address] [place] [address] Dr. [place], [place] [phone] [employer] Supervisor: Robert Casiano MD #### GLYHGB #### [address] [id number] [employer] Supervisor: Ivan Perez MD NRBC Automated 0.0 per 100 WBC Normal 0.0 [facility] Comment on above: Performed By: #### C P, CBC #### [address] [place] [id number] [employer] Supervisor: Robert Casiano MD #### GLYHGB #### [address] [address] [employer] Supervisor: Ivan Perez MD Platelet mean volume (Bld) [Entitic vol] 9.1 fL Normal 8.1-13.5 [facility] Comment on above: Performed By: #### C P, CBC #### [address] [place] [id number] [employer] Supervisor: Robert Casiano MD #### GLYHGB #### [address] [address] [employer] Supervisor: Ivan Perez MD Platelets (Bld) [#/Vol] 322 10*3/uL Normal 138-453 [facility] Comment on above: Performed By: #### C P, CBC #### [address] [place], [place] 0592383 [employer] Supervisor: Robert Casiano MD #### GLYHGB #### [address] [id number] [employer] Supervisor: Ivan Perez MD RBC (Bld) [#/Vol] 4.81 10*6/uL Normal 3.95-5.11 [facility] Comment on above: Performed By: #### C P, CBC #### [address] [place] [id number] ( [employer] Supervisor: Robert Casiano MD #### GLYHGB #### [address] 1944208 [employer] Supervisor: Ivan Perez MD WBC (Bld) [#/Vol] 7.9 10*3/uL Normal 3.5-11.3 [facility] Comment on above: Performed By: #### C P, CBC #### [address] [place] [id number] [employer] Supervisor: Robert Casiano MD #### GLYHGB #### [address] [address] [employer] Supervisor: Ivan Perez MD Comp Metabolic Profon 2023 Albumin [Mass/Vol] 4.3 g/dL Normal 3.5-5.2 [facility] Comment on above: Performed By: #### C P, CBC #### [address] [place] [id number] [employer] Supervisor: Robert Casiano MD #### GLYHGB #### [address] [address] [employer] Supervisor: Ivan Perez MD Albumin/Glob Ratio 1.4 Normal 1.0-2.5 [facility] Comment on above: Performed By: #### C P, CBC #### [address] [place] [phone] ( [employer] Supervisor: Robert Casiano MD #### GLYHGB #### [address] [phone] Machine [employer] Supervisor: Ivan Perez MD Alkaline Phos 49 U/L Normal 35-[address] [facility] Comment on above: Performed By: #### C P, CBC #### [facility] [address] [place], [place] 9598583 [employer] Supervisor: Robert Casiano MD #### GLYHGB #### [address] [address] [employer] Supervisor: Ivan Perez MD ALT [Catalytic activity/Vol] 29 U/L Normal 5-33 [facility] Comment on above: Performed By: #### C P, CBC #### [facility] [address] [place], [place] 7466983 [employer] Supervisor: Robert Casiano MD #### GLYHGB #### [address] [phone] [employer] Supervisor: Ivan Perez MD Anion gap [Moles/Vol] 12 mmol/L Normal 9-17 [facility] Comment on above: Performed By: #### C P, CBC #### [facility] [address] [place], [place] 6032183 [employer] Supervisor: Robert Casiano MD #### GLYHGB #### [address] [address] [employer] Supervisor: Ivan Perez MD AST [Catalytic activity/Vol] 25 U/L Normal <32 [facility] Comment on above: Performed By: #### C P, CBC #### [facility] [address] [place], [place] 9721083 [employer] Supervisor: Robert Casiano MD #### GLYHGB #### [address] [address] [employer] Supervisor: Ivan Perez MD Bilirubin [Mass/Vol] 0.2 mg/dL Low 0.3-1.2 [facility] Comment on above: Performed By: #### C P, CBC #### [facility] [address] [place], [place] 8623083 [employer] Supervisor: Robert Casiano MD #### GLYHGB #### [facility] [address] [place] [address] Machine [employer] Supervisor: Ivan Perez MD BUN/CRE Ratio 28 High 9-[address] [facility] Comment on above: Performed By: #### C P, CBC #### [facility] [address] [place], [place] 8793283 [employer] Supervisor: Robert Casiano MD #### GLYHGB #### [address] [address] [employer] Supervisor: Ivan Perez MD Calcium [Mass/Vol] 9.1 mg/dL Normal 8.6-10.4 [facility] Comment on above: Performed By: #### C P, CBC #### [facility] [address] [place] [address] Dr. [place], [place] 7546083 [employer] Supervisor: Robert Casiano MD #### GLYHGB #### [address] [address] Machine [employer] Supervisor: Ivan Perez MD Chloride [Moles/Vol] 108 mmol/L High 98-107 [facility] Comment on above: Performed By: #### C P, CBC #### [facility] [address] [place], [place] 0227983 [employer] Supervisor: Robert Casiano MD #### GLYHGB #### [address] [address] [employer] Supervisor: Ivan Perez MD CO2 [Moles/Vol] 24 mmol/L Normal 20-31 [facility] Comment on above: Performed By: #### C P, CBC #### [facility] [address] [place], [place] 3570683 [employer] Supervisor: Robert Casiano MD #### GLYHGB #### [facility] [address], [place] 9927808 [employer] Supervisor: Ivan Perez MD Creatinine [Mass/Vol] 0.6 mg/dL Normal 0.5-0.9 [facility] Comment on above: Performed By: #### C P, CBC #### [facility] [address] [place] [address] [place] [address] [employer] Supervisor: Robert Casiano MD #### GLYHGB #### [address] [place], [place] 6862808 [employer] Supervisor: Ivan Perez MD GFR/1.73 sq M.predicted among non-blacks MDRD (S/P/Bld) [Vol rate/Area] mL/min/{1.73_m2} Normal >60 [facility] Comment on above: Result Comment: [...] Performed By: #### C P, CBC #### [address] [place] [address] [employer] Supervisor: Robert Casiano MD #### GLYHGB #### [facility] [address] [place], [place] 5787408 [employer] Supervisor: Ivan Perez MD Glucose [Mass/Vol] 90 mg/dL Normal 70-99 [facility] Comment on above: Performed By: #### C P, CBC #### [address] [place] [address] [employer] Supervisor: Robert Casiano MD #### GLYHGB #### [facility] [address] [place] [address] Machine Shop Supervisor: Ivan Perez MD Potassium [Moles/Vol] 4.2 mmol/L Normal 3.7-5.3 [facility] Comment on above: Performed By: #### C P, CBC #### [facility] [address] [place], [place] [phone] Machine [employer] Supervisor: Robert Casiano MD #### GLYHGB #### [address] [address] Machine [employer] Supervisor: Ivan Perez MD Protein [Mass/Vol] 7.3 g/dL Normal 6.4-8.3 [facility] Comment on above: Performed By: #### C P, CBC #### [facility] [address] [place] [address] [place], [place] 6168183 [employer] Supervisor: Robert Casiano MD #### GLYHGB #### [address] [address] Machine [employer] Supervisor: Ivan Perez MD Sodium [Moles/Vol] 144 mmol/L Normal 135-144 [facility] Comment on above: Performed By: #### C P, CBC #### [facility] [address] [place] [address] [place], [place] 9908983 [employer] Supervisor: Robert Casiano MD #### GLYHGB #### [address] [address] Machine [employer] Supervisor: Ivan Perez MD Urea nitrogen [Mass/Vol] 17 mg/dL Normal 6-20 [facility] Comment on above: Performed By: #### C P, CBC #### [facility] [address] [place] [address] [place], [place] 1736083 [employer] Supervisor: Robert Casiano MD #### GLYHGB #### [address] [address] [employer] Supervisor: Ivan Perez MD Hemoglobin A1Con 10-20-2023 Glucose [Mass/Vol] 105 mg/dL Normal [facility] Comment on above: Result Comment: The ADA and AACC recommend providing the estimated average glucose result to permit better patient understanding of their HBA1c result. Performed By: #### C P, CBC #### [facility] [address] [place], [place] 7031383 Machine [employer] Supervisor: Robert Casiano MD #### GLYHGB #### [address] [address] [employer] Supervisor: Ivan Perez MD HbA1c (Bld) [Mass fraction] 5.3 % Normal 4.0-6.0 [facility] Comment on above: Performed By: #### C P, CBC #### [facility] [address] [place] [address] Machine Shop Supervisor: Robert Casiano MD #### GLYHGB #### [address] [address] Machine [employer] Supervisor: Ivan Perez MD Lipid Profileon 10-20-2023 Cholesterol [Mass/Vol] 163 mg/dL Normal <200 [facility] Comment on above: Result Comment: Cholesterol Guidelines: <200 Desirable 200-240 Borderline >240 Undesirable Performed By: #### L IPR #### [address] [address] Machine [employer] Supervisor: Ivan Perez MD Cholesterol in HDL [Mass/Vol] 44 mg/dL Normal >40 [facility] Comment on above: Result Comment: HDL Guidelines: <40 Undesirable 40-59 Borderline >59 Desirable Performed By: #### L IPR #### [address] [address] [employer] Supervisor: Ivan Perez MD Cholesterol in LDL [Mass/Vol] 100 mg/dL Normal 0-130 [facility] Comment on above: Result Comment: LDL Guidelines: <100 Desirable 100-129 Near to/above Desirable 130-159 Borderline >159 Undesirable Direct (measured) LDL and calculated LDL are not interchangeable tests. Performed By: #### L IPR #### [address] [place] [address] [employer] Supervisor: Ivan Perez MD Cholesterol.total/Ch olesterol in HDL [Mass ratio] 3.7 {ratio} Normal <5 [facility] Comment on above: Performed By: #### L IPR #### [address] [address] Machine [employer] Supervisor: Ivan Perez MD Triglyceride [Mass/Vol] 94 mg/dL Normal <150 [facility] Comment on above: Result Comment: Triglyceride Guidelines: <150 Desirable 150-199 Borderline 200-499 High >499 Very high Based on AHA Guidelines for fasting triglyceride, June 2012. Performed By: #### L IPR #### [address] [address] [employer] Supervisor: Ivan Perez MD [place] 07-11-2023 ALT [Catalytic activity/Vol] 32 U/L Normal 5-33 [facility] Comment on above: Performed By: #### A ST, ALT #### [address] [place] [address] Machine [employer] Supervisor: Robert Casiano MD Yesi 6 AST [Catalytic activity/Vol] 23 U/L Normal <32 [facility] Comment on above: Performed By: #### A ST, ALT #### [facility] [address] [place] [address] Machine [employer] Supervisor: Robert Casiano MD TSH w/reflex to FT4on 2022 Thyroid Stim. Horm. 2.14 uIU/mL Normal 0.30-5.00 [facility] Comment on above: Performed By: #### T SHX #### [facility] [address] [place] [address] Machine [employer] Supervisor: Robert Casiano MD Glucose, Fastingon Glucose [Mass/Vol] 77 mg/dL 70 - 99 mg/dL [facility] Invarium [facility] 04-18-2022 Cholesterol [Mass/Vol] 194 mg/dL NINF - 200 mg/dL [facility] Comment on above: Cholesterol Guidelines: <200 Desirable 200-240 Borderline >240 Undesirable Cholesterol in HDL [Mass/Vol] 47 mg/dL 40 - PINF mg/dL [facility] Comment on above: HDL Guidelines: <40 Undesirable 40-59 Borderline >59 Desirable Cholesterol in LDL [Mass/Vol] 129 mg/dL 0 - 130 mg/dL [facility] Invarium Comment on above: LDL Guidelines: <100 Desirable 100-129 Near to/above Desirable 130-159 Borderline >159 Undesirable Direct (measured) LDL and calculated LDL are not interchangeable tests. Cholesterol.total/Ch olesterol in HDL [Mass ratio] 4.1 {ratio} NINF - 5 [facility] Triglyceride [Mass/Vol] 89 mg/dL NINF - 150 mg/dL [facility] Comment on above: Triglyceride Guidelines: <150 Desirable 150-199 Borderline 200-499 High >499 Very high Based on AHA Guidelines for fasting triglyceride, June 2012. [facility] Glucose, FastingOrdered By: Gunnar Palacios on 04-18-2021 Glucose [Mass/Vol] 85 mg/dL 70 - 99 mg/dL [facility] [employer] Work Phone[facility] Phone: Lipid PanelOrdered By: Wesley Palacios on 04-18-2021 Cholesterol [Mass/Vol] 180 mg/dL <200 [facility] Work Phone: Comment on above: Cholesterol Guidelines: <200 Desirable 200-240 Borderline >240 Undesirable Cholesterol in HDL [Mass/Vol] 45 mg/dL >40 [facility] Phone: Comment on above: HDL Guidelines: <40 Undesirable 40-59 Borderline >59 Desirable Cholesterol in LDL [Mass/Vol] 113 mg/dL 0 - 130 mg/dL [facility] Phone: Comment on above: LDL Guidelines: <100 Desirable 100-129 Near to/above Desirable 130-159 Borderline >159 Undesirable Direct (measured) LDL and calculated LDL are not interchangeable tests. Cholesterol in VLDL [Mass/Vol] NOT REPORTED 1 - 30 mg/dL [facility] Phone: Cholesterol.total/Ch olesterol in HDL [Mass ratio] 4 {ratio} <5 [facility] Phone: Triglyceride [Mass/Vol] 112 mg/dL <150 [facility] Phone: Comment on above: Triglyceride Guidelines: <150 Desirable 150-199 Borderline 200-499 High >499 Very high Based on AHA Guidelines for fasting triglyceride, June 2012. [facility] Phone: Glucose, Fastingon 9 Glucose [Mass/Vol] 106 mg/dL High 70 - 99 mg/dL [facility] [employer] [place], [place] Interpretation and review of laboratory results Abnormal [place], [place] Insulin, Totalon 07-31-2019 INR Coag (Bld) [Relative time] [place], [place] Comment on above: Fastin.6-24.9 30 min: 20-112 60 min: 29-88 90 min: 26-84 120 min: 22-79 Insulin 44.5 mU/L [place] Insulin Comment NOT REPORTED [facility] [place], [place] TSHon 07-31-2019 TSH Qn 2.26 m[IU]/L [place] Encounters Encounter Date Encounter Type Care Provider Facility Start: 03-09-2024 End: 03-09-2024 ambulatory ЕКАТЕРИНА JABARI Not Available Start: 03-03-2024 End: 03-03-2024 ambulatory ЕКАТЕРИНА JABARI Not Available Start: 02-20-2024 End: 02-20-2024 ambulatory ЕКАТЕРИНА JABARI Not Available Start: 02-16-2024 End: 02-16-2024 ambulatory ЕКАТЕРИНА JABARI Not Available Start: 10-30-2023 End: 10-30-2023 ambulatory ЕКАТЕРИНА JABARI Not Available Start: 10-20-2023 End: 10-21-2023 ambulatory [facility] Start: 07-11-2023 End: 07-12-2023 ambulatory [facility] Start: 05-26-2023 End: 05-27-2023 ambulatory [facility] Start: 04-18-2022 End: 04-18-2022 Subsequent hospital visit by physician Gunnar Palacios MD Work Phone: [facility] Comment on above: Screening for diabet es mellitus; Screening cholesterol level Start: 01-30-2022 End: 01-30-2022 Patient encounter procedure Gunnar Palacios MD Work Phone: [facility] Start: 01-30-2022 End: 01-30-2022 Subsequent hospital visit by physician Gunnar Palacios MD Work Phone: [facility] Comment on above: Women's annual routi ne gynecological examination Start: 04-18-2021 End: 04-18-2021 Patient encounter status Gunnar Palacios MD Work Phone: [facility] Start: 04-18-2021 End: 04-18-2021 Subsequent hospital visit by physician Gunnar Palacios MD Work Phone: [facility] Comment on above: Wellness examination Start: 07-31-2019 End: 07-31-2019 Subsequent hospital visit by physician Gunnar Palacios [facility] Comment on above: Irregular menses [...] cervix Pap smear [facility] Start: 10-06-2023 DTaP/Tdap/Td vaccine (7 - Td or Tdap) DTaP/Tdap/Td vaccine (7 - Td or Tdap) [facility] Start: 10-06-2023 DTaP/Tdap/Td vaccine (7 - Td) DTaP/Tdap/Td vaccine (7 - Td) [place] Start: 02-05-2023 End: 02-05-2023 Patient encounter procedure 02/05/2023 Office Visit Obstetrics and Gynecology Sarah Horn PA-C [address] [place] [address] [facility] Start: 05-16-2022 Influenza vaccination [facility] Start: 04-19-2022 End: 04-19-2022 Patient encounter procedure 04/19/2022 Office Visit Primary Care Gunnar Palacios MD [address] [place] [address] [facility] Start: 04-16-2022 Depression Screen Depression Screen [facility] Start: 05-16-2021 Influenza vaccination Flu vaccine (# 1) [facility] Work Phone: Start: 08-03-2019 End: 08-03-2019 Office Visit 08/03/2019 Office Visit Obstetrics and Gynecology [facility] [employer]LIND[employer] [facility]ER Start: 05-16-2019 Influenza vaccination Flu vaccine (# 1) [place] Start: 04-02-2017 Chlamydia screen Chlamydia screen [facility] [place] [facility] [place], [place] Start: 04-02-2017 Screening for Chlamy daniella trachomatis Chlamydia screen [facility] Start: 2017 Cervical cancer screen Cervical canc er screen [place], [place] Start: 2017 Screening for malign ant neoplasm of cervix [facility] Start: 2014 Hepatitis C screening Hepatitis C [facility] Start: 2011 HIV screen HIV screen [place], [place] Start: 2008 COVID-19 Vaccine (1) COVID-19 Vaccin e (1) [facility] Work Phone: Start: 2007 HPV vaccine (1 - 2-d ose series) HPV vaccine (1 - 2-dose series) [facility] Start: 2007 HPV vaccine (1 - Fem rahul 2-dose series) HPV vaccine (1 - Female 2-dose series) [place], [place] Start: 2001 COVID-19 Vaccine (1) COVID-19 Vaccin e (1) [facility] Start: 1996 COVID-19 Vaccine (#1) COVID-19 Vacci ne (#1) [facility] Start: 1996 Hepatitis C screening Hepatitis C [facility] Phone: End: 01-30-2022 Cytopathology procedure, preparation of smear, genital source [facility] Lab Routine Women's annual routine gynecological examination 1 Occurrences starting 01/30/2022 until 01/30/2022 [facility] Phone: Comment on above: 1 Occurrences starti ng 01/30/2022 until 01/30/2022 Immunizations Immunization Date Immunization Notes Care Provider Justine drake 06-15-2015 influenza virus vacc ine, whole virus [facility] 10-06-2013 hepatitis A vaccine, unspecified formulation [place] 10-06-2013 tetanus toxoid, redu linda diphtheria toxoid, and acellular pertussis vaccine, adsorbed Gunnar [place], [place] 05-25-2013 varicella virus vaccine Gunnar daniel [place], [place] 02-25-2013 hepatitis A vaccine, unspecified formulation [facility] , [place] 02-25-2013 meningococcal polysaccharide (groups A, C, Y and W-135) diphtheria toxoid conjugate vaccine (MCV4P) [facility], [place] 03-05-2001 diphtheria, tetanus toxoids and acellular pertussis vaccine [facility], [place] 03-05-2001 measles, mumps and r ubella virus vaccine [facility], [place] 03-05-2001 poliovirus vaccine, inactivated [facility] 07-14-1997 diphtheria, tetanus toxoids and acellular pertussis vaccine [facility], [place] 05-09-1997 measles, mumps and r ubella virus vaccine [facility], [place] 05-09-1997 varicella virus vaccine [facility] [place] 1996 diphtheria, tetanus toxoids and acellular pertussis vaccine [facility], [place] 1996 hepatitis B vaccine, unspecified formulation [facility] , [place] 1996 poliovirus vaccine, inactivated [facility], [place] 1996 diphtheria, tetanus toxoids and acellular pertussis vaccine [facility], [place] 1996 haemophilus influenz ae type b vaccine, PRP-OMP conjugate [facility], [place] 1996 poliovirus vaccine, inactivated [facility], [place] 1996 diphtheria, tetanus toxoids and acellular pertussis vaccine [facility] 1996 haemophilus influenz ae type b vaccine, PRP-OMP conjugate [facility], [place] 1996 poliovirus vaccine, inactivated [facility], [place] 1996 haemophilus influenz ae type b vaccine, PRP-OMP conjugate [facility], [place] 1996 hepatitis B vaccine, unspecified formulation [facility] [place], [place] 1996 haemophilus influenz ae type b vaccine, PRP-OMP conjugate Luis Antoniomarek Palacios [place], [place] 1996 hepatitis B vaccine, unspecified formulation Wesleydmitry Palacios [place], [place] Payers Date Payer Category Payer Unknown [id number] 2021 Unknown [id number] 2020 Unknown [id number] 2016 Unknown [employer] [facility] PLUS PLAN [facility] xxxxxxxxxxxx 2016-Present [phone] [address] [place] [address] xxxxxxxxxxxx [id number] 1996 Unknown [id number] 1996 Unknown [id number] 1996 Unknown [id number] 1996 Unknown [id number] 9 1996 Unknown [id number] 9 1996 Unknown [id number] 9 1996 Unknown [id number] 9 1996 Unknown [id number] 9 Social History Date Type Detail Facility Start: 07-16-2017 End: 07-13-2019 Tobacco smoking status NHIS Never smoker [place] Start: 07-13-2019 End: 01-30-2022 Alcohol intake Current non-drinker of alcohol (finding) [employer] BARBARA LOPEZ Start: 1995 Sex Assigned At Not on file M sánchez [employer] NUNEZ Start: 07-16-2017 End: 04-16-2021 Tobacco use and exposure Never used [employer] Phone: Start: 04-16-2021 History SDOH Financial 5 [employer] Phone: Start: 04-16-2021 History SDOH Food Worry 1 [employer] Phone: Start: 04-16-2021 History SDOH Transpo rt Med 2 [employer] Phone: Evaluation note Note Date & Type Note Facility Evaluation note Diagnosis Wellness examination documented in this encounter [employer] Phone: Evaluation note Note Date & Type Note Facility Evaluation note Diagnosis Women's annual routine gynecological examination documented in this encounter [employer] Phone: Evaluation note Note Date & Type Note Facility Evaluation note Diagnosis Screening for diabetes mellitus Screening cholesterol level Screening for lipoid disorders documented in this encounter [facility] [employer] Phone: Assessments Diagnosis Irregular menses Irregular menstrual cycle Advance Directives No Advanced Directives Records FoundDocuments on File Type Date Recorded Patient Entry Writer Expl anation Advance Directives and Living Will Power of Umbrella Tipper Machine Latest Code Status on File Code Status Date Activated Date Inactivated Comments Full Code 09/13/2015 8:45 PM 09/14/2015 5:05 PM Documents on File Type Date Recorded Patient Entry Writer Expl anation ACP-Advance Directive ACP-Power of Umbrella Tipper Machine Summary Purpose Family History No Family History Records FoundNo Family History Records Found Additional Source Comments Care Teams (unrecognized sec tion and content) Optician Apprentice Relationship Specialty Start Date End Date Gunnar Palacios MD [address] [place] [address] [address] [place] [address] PCP - General Family Medicine 09/22/15 Optician Apprentice Relationship Specialty Start Date End Date Gunnar Palacios MD [address] [place] [address] [address] [place] [address] PCP - General Family Medicine 09/22/15 INFORMATION SOURCE (unrecogn ized section and content) DATE CREATED AUTHOR 10/21/2023 Hiwot henderson DATE CREATED AUTHOR AUTHORCorbin MARQUEZ 03/10/2024 [facility] FOR RECORDS PERTAINING TO PATIENTS WHO [...] BE BASED ON THE PRIMARY CLINICAL RECORDS. [employer] provides no warranty or guarantee of the accuracy or completeness of information in this document.
[2024-04-02 14:49] LABS: Glucose 1 Hour 177 mg/dL (<130)
== END 2024-04-02 12:36 | disposition home or self-care (01) ==
LOC: LAB 12:35
PROVIDERS: Visit Provider Obstetrics & Gynecology
DX: Z13.1 Encounter for screening for diabetes mellitus (principal)
CPT/HCPCS: 36415; 82950

== ENCOUNTER 2024-04-21 11:19 | Outpatient (OUT) | payer OTHER, SELFPAY ==
--- OUTSIDE RECORDS SUMMARY | 2024-04-21 11:36 | XMS_ITS | CCD ---
Author Organization [facility] Inform ion Partnership [facility] Care Team Providers Care Fans Clerk Name Role Phone Wesely Palaciosdmitry Nataliya Primary Care Provider EMILY WARREN Primary Care Unavailable EMILY WARREN Referring Unavailable EMILY WARREN Referring Unavailable EMILY WARREN Primary Care Unavailable EMILY WARREN Referring Unavailable EMILY WARREN Primary Care Unavailable ЕКАТЕРИНА BARBOZA Attending Unavailable JABARI, ЕКАТЕРИНА Attending Unavailable JABARI, ЕКАТЕРИНА Attending Unavailable ЕКАТЕРИНА BARBOZA Attending Unavailable JABARI, ЕКАТЕРИНА Attending Unavailable SANTOS BARBOZAY R Referring Unavailable THEODORE KING Attending Unavailable SNUITA RAPP Referring Unavail able Allergies Allergy Classification Reported Allergen(s) Allergy Type Date of Onset Reaction(s) Facility Cephalosporins (antibiotic) (1 source) cefprozil Drug Allergy 05-10-2013 [facility] (4 sources) cefprozil; Translations: [CEFPROZIL] Drug Allergy 05-10-2013 [facility]- [place], [place] Medications Current Medications Medication Drug Class(es) Dates [...] hyperlipidemia; Translations: [Mixed hyperlipidemia] Onset: 05-26-2023 Chronic Hemorrhage during ; abruptio placenta; placenta previa (1 source) Other antepartum hemorrhage, second trimester; Translations: [Other antepartum hemorrhage, second trimester] Onset: 04-07-2024 Episodic Menstrual disorders (5 sources) Irregular periods; Translations: [Dysmenorrhea] Onset: 09-21-2015 09-21-2015 Chronic Other complications of (1 source) Obesity complicating , unspecified trimester; Translations: [Obesity complicating , unspecified trimester] Onset: 04-07-2024 Chronic Other complications of (1 source) Maternal care for other known or suspected poor growth, unspecified trimester, not applicable or unspecified; Translations: [Maternal care for other known or suspected poor growth, unspecified trimester, not applicable or unspecified] Onset: 04-07-2024 Episodic Other endocrine disorders (3 sources) Polycystic ovarian syndrome; Translations: [Polycystic ovarian syndrome] Onset: 03-23-2023 Chronic Other liver diseases (1 source) Abnormal levels of other serum enzymes; Translations: [Abnormal levels of other serum enzymes] Onset: 10-20-2023 Episodic Other nutritional; endocrine; and metabolic disorders (4 sources) Morbid obesity; Translations: [Morbid (severe) obesity due to excess calories] Onset: 09-13-2015 09-13-2015 Chronic Other screening for suspected conditions (not mental disorders or infectious disease) (4 sources) Patient encounter status; Translations: [Encounter for screening for diabetes mellitus] Onset: 07-11-2023 Episodic Polyhydramnios and other problems of amniotic cavity (1 source) Other specified disorders of amniotic fluid and membranes, second trimester, not applicable or unspecified; Translations: [Other specified disorders of amniotic fluid and membranes, second trimester, not applicable or unspecified] Onset: 04-07-2024 Episodic Pulmonary heart disease (8 sources) Acute pulmonary embolism; Translations: [Other pulmonary embolism without acute cor pulmonale] Onset: 09-13-2015 09-13-2015 Episodic Pulmonary heart disease (1 source) 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; Translations: [Embolism, pulmonary with infarction] Onset: 09-21-2015 09-21-2015 Residual codes; unclassified (1 source) 16 weeks gestation of ; Translations: [16 weeks gestation of ] Onset: 04-07-2024 Episodic Unclassified (1 source) Hx PE Onset: 04-07-2024 Past or Other Problems Problem Classification Problem Date Documented Da te Episodic/Chronic Deficiency and other anemia (4 sources) Iron deficiency anemia; Translations: [Iron deficiency anemia, unspecified] Onset: 09-14-2015 09-14-2015 Episodic Phlebitis; thrombophlebitis and thromboembolism (4 sources) Thromboembolism of vein; Translations: [Acute embolism and thrombosis of unspecified vein] Onset: 03-21-2016 03-21-2016 Episodic Results Test Name Value Interpretation Reference Range Facil ity CBCon 10-20-2023 Erythrocyte distribution width (RBC) [Ratio] 13.3 % Normal 11.8-14.4 [facility] Comment on above: Performed By: #### C P, CBC #### [address] [place] [address] Agency Manager: Robert Casiano MD #### GLYHGB #### [address] [address] Agency Manager: Ivan Perez MD Hematocrit (Bld) [Volume fraction] 42.6 % Normal 36.3-47.1 [facility] Comment on above: Performed By: #### C P, CBC #### [address] [place] [address] Agency Manager: Robert Casiano MD #### GLYHGB #### [address] [id number] Agency Manager: Ivan Perez MD Hemoglobin (Bld) [Mass/Vol] 13.6 g/dL Normal 11.9-15.1 [facility] Comment on above: Performed By: #### C P, CBC #### [address] [place] [address] Agency Manager: Robert Casiano MD #### GLYHGB #### [place] [phone] Agency Manager: Ivan Perez MD MCH (RBC) [Entitic mass] 28.3 pg Normal 25.2-33.5 [facility] Comment on above: Performed By: #### C P, CBC #### [address] [place] [phone] Agency Manager: Robert Casiano MD #### GLYHGB #### [place] [address] Agency Manager: Ivan Perez MD MCHC (RBC) [Mass/Vol] 31.9 g/dL Normal 28.4-34.8 [facility] Comment on above: Performed By: #### C P, CBC #### [address] [place] [phone] Agency Manager: Robert Casiano MD #### GLYHGB #### [place] [phone] Agency Manager: Ivan Perez MD MCV (RBC) [Entitic vol] 88.6 fL Normal 82.6-102.9 [facility] Comment on above: Performed By: #### C P, CBC #### [address] [place] [phone] Agency Manager: Robert Casiano MD #### GLYHGB #### [place] [phone] Agency Manager: Ivan Perez MD NRBC Automated 0.0 per 100 WBC Normal 0.0 [facility] Comment on above: Performed By: #### C P, CBC #### [address] [place] [address] Agency Manager: Robert Casiano MD #### GLYHGB #### [facility] [address] [place], [place] [phone] Agency Manager: Ivan Perez MD Platelet mean volume (Bld) [Entitic vol] 9.1 fL Normal 8.1-13.5 [facility] Comment on above: Performed By: #### C P, CBC #### [address] [place] [address] Agency Manager: Robert Casiano MD #### GLYHGB #### [place] [address] [place] [address] Agency Manager: Ivan Perez MD Platelets (Bld) [#/Vol] 322 10*3/uL Normal 138-453 [facility] Comment on above: Performed By: #### C P, CBC #### [address] [place] [address] Agency Manager: Robert Casiano MD #### GLYHGB #### [facility] [address] [place], [place] [phone] Agency Manager: Ivan Perez MD RBC (Bld) [#/Vol] 4.81 10*6/uL Normal 3.95-5.11 [facility] Comment on above: Performed By: #### C P, CBC #### [address] [place] [address] Agency Manager: Robert Casiano MD #### GLYHGB #### [facility] [address] [place], [place] [phone] Agency Manager: Ivan Perez MD WBC (Bld) [#/Vol] 7.9 10*3/uL Normal 3.5-11.3 [facility] Comment on above: Performed By: #### C P, CBC #### [address] [place] [address] Agency Manager: Robert Casiano MD #### GLYHGB #### [place] [address] [place] [address] Agency Manager: Ivan Perez MD Comp Metabolic Profon 2023 Albumin [Mass/Vol] 4.3 g/dL Normal 3.5-5.2 [facility] Comment on above: Performed By: #### C P, CBC #### [facility] [address] [place] [address] Dr[address] [place], [place] [phone] Agency Manager: Robert Casiano MD #### GLYHGB #### [address] [address] Agency Manager: Ivan Perez MD Albumin/Glob Ratio 1.4 Normal 1.0-2.5 [facility] Comment on above: Performed By: #### C P, CBC #### [facility] [address] [place] [address] Dr[address] [place] [phone] Agency Manager: Robert Casiano MD #### GLYHGB #### [address] [address] Agency Manager: Ivan Perez MD Alkaline Phos 49 U/L Normal 35-104 [facility] Comment on above: Performed By: #### C P, CBC #### [address] [place] [phone] Agency Manager: Robert Casiano MD #### GLYHGB #### [place] [address] [place] [address] Agency Manager: Ivan Perez MD ALT [Catalytic activity/Vol] 29 U/L Normal 5-33 [facility] Comment on above: Performed By: #### C P, CBC #### [address] [place], [place] [phone] Agency Manager: Robert Casiano MD #### GLYHGB #### [facility] [address] [place] [address] Agency Manager: Ivan Perez MD Anion gap [Moles/Vol] 12 mmol/L Normal 9-17 [facility] Comment on above: Performed By: #### C P, CBC #### [facility] [address] [place], [place] [phone] Agency Manager: Robert Casiano MD #### GLYHGB #### [address] [address] Agency Manager: Ivan Perez MD AST [Catalytic activity/Vol] 25 U/L Normal <32 [facility] Comment on above: Performed By: #### C P, CBC #### [facility] [address] [place], [place] [phone] Agency Manager: Robert Casiano MD #### GLYHGB #### [address] [address] Agency Manager: Ivan Perez MD Bilirubin [Mass/Vol] 0.2 mg/dL Low 0.3-1.2 [facility] Comment on above: Performed By: #### C P, CBC #### [facility] [address] [place], [place] [phone] Agency Manager: Robert Casiano MD #### GLYHGB #### [address] [address] Agency Manager: Ivan Perez MD BUN/CRE Ratio 28 High 9-20 [facility] Comment on above: Performed By: #### C P, CBC #### [facility] [address] [place], [place] [phone] Agency Manager: Robert Casiano MD #### GLYHGB #### [address] [address] Agency Manager: Ivan Perez MD Calcium [Mass/Vol] 9.1 mg/dL Normal 8.6-10.4 [facility] Comment on above: Performed By: #### C P, CBC #### [facility] [address] [place] [address] Agency Manager: Robert Casiano MD #### GLYHGB #### [address] [phone] Agency Manager: Ivan Perez MD Chloride [Moles/Vol] 108 mmol/L High 98-107 [facility] Comment on above: Performed By: #### C P, CBC #### [facility] [address] [place] [address] Agency Manager: Robert Casiano MD #### GLYHGB #### [address] [phone] Agency Manager: Ivan Perez MD CO2 [Moles/Vol] 24 mmol/L Normal 20-31 [facility] Comment on above: Performed By: #### C P, CBC #### [facility] [address] [place] [address] [address] [place], [place] [phone] Agency Manager: Robert Casiano MD #### GLYHGB #### [address] [phone] Agency Manager: Ivan Perez MD Creatinine [Mass/Vol] 0.6 mg/dL Normal 0.5-0.9 [facility] Comment on above: Performed By: #### C P, CBC #### [facility] [address] [place], [place] [phone] Agency Manager: Robert Casiano MD #### GLYHGB #### [address] [address] Agency Manager: Ivan Perez MD GFR/1.73 sq M.predicted among non-blacks MDRD (S/P/Bld) [Vol rate/Area] mL/min/{1.73_m2} Normal >60 [facility] Comment on above: Result Comment: These results [...] By: #### C P, CBC #### [address] [place] [address] Agency Manager: Robert Casiano MD #### GLYHGB #### [address] [phone] Agency Manager: Ivan Perez MD Glucose [Mass/Vol] 90 mg/dL Normal 70-99 [facility] Comment on above: Performed By: #### C P, CBC #### [address] [place], [place] [phone] Agency Manager: Robert Casiano MD #### GLYHGB #### [address] [phone] Agency Manager: Ivan Perez MD Potassium [Moles/Vol] 4.2 mmol/L Normal 3.7-5.3 [facility] Comment on above: Performed By: #### C P, CBC #### [address] [place] [address] Agency Manager: Robert Casiano MD #### GLYHGB #### [address] [phone] Agency Manager: Ivan Perez MD Protein [Mass/Vol] 7.3 g/dL Normal 6.4-8.3 [facility] Comment on above: Performed By: #### C P, CBC #### [facility] [address] [place], [place] [phone] Agency Manager: Robert Casiano MD #### GLYHGB #### [facility] [address] [place], [place] [phone] Agency Manager: Ivan Perez MD Sodium [Moles/Vol] 144 mmol/L Normal 135-144 [facility] Comment on above: Performed By: #### C P, CBC #### [facility] [address] [place], [place] [phone] Agency Manager: Robert Casiano MD #### GLYHGB #### [place] [address] [place], [place] [phone] Agency Manager: Ivan Perez MD Urea nitrogen [Mass/Vol] 17 mg/dL Normal 6-20 [facility] Comment on above: Performed By: #### C P, CBC #### [facility] [address] [place] [address] [place], [place] [phone] Agency Manager: Robert Casiano MD #### GLYHGB #### [place] [address] [place], [place] [phone] Agency Manager: Ivan Perez MD Hemoglobin A1Con 10-20-2023 Glucose [Mass/Vol] 105 mg/dL Normal [facility] Comment on above: Result Comment: The ADA and AACC recommend providing the estimated average glucose result to permit better patient understanding of their HBA1c result. Performed By: #### C P, CBC #### [address] [place], [place] [phone] Agency Manager: Robert Casiano MD #### GLYHGB #### [facility] [address] [place], [place] [phone] Agency Manager: Ivan Perez MD HbA1c (Bld) [Mass fraction] 5.3 % Normal 4.0-6.0 [facility] Comment on above: Performed By: #### C P, CBC #### [facility] [address] [place] [address] Agency Manager: Robert Casiano MD #### GLYHGB #### [address] [address] Agency Manager: Ivan Perez MD Lipid Profileon 10-20-2023 Cholesterol [Mass/Vol] 163 mg/dL Normal <200 [facility] Comment on above: Result Comment: Cholesterol Guidelines: <200 Desirable 200-240 Borderline >240 Undesirable Performed By: #### L IPR #### [address] [address] Agency Manager: Ivan Perez MD Cholesterol in HDL [Mass/Vol] 44 mg/dL Normal >40 [facility] Comment on above: Result Comment: HDL Guidelines: <40 Undesirable 40-59 Borderline >59 Desirable Performed By: #### L IPR #### [address] [address] Agency Manager: Ivan Perez MD Cholesterol in LDL [Mass/Vol] 100 mg/dL Normal 0-130 [facility] Comment on above: Result Comment: LDL Guidelines: <100 Desirable 100-129 Near to/above Desirable 130-159 Borderline >159 Undesirable Direct (measured) LDL and calculated LDL are not interchangeable tests. Performed By: #### L IPR #### [address] [address] Agency Manager: Ivan Perez MD Cholesterol.total/Ch olesterol in HDL [Mass ratio] 3.7 {ratio} Normal <5 [facility] Comment on above: Performed By: #### L IPR #### [address] [address] Agency Manager: Ivan Perez MD Triglyceride [Mass/Vol] 94 mg/dL Normal <150 [facility] Comment on above: Result Comment: Triglyceride Guidelines: <150 Desirable 150-199 Borderline 200-499 High >499 Very high Based on AHA Guidelines for fasting triglyceride, June 2012. Performed By: #### L IPR #### [facility] [address] [place], [place] [phone] Agency Manager: Ivan Perez MD [place] 07-11-2023 ALT [Catalytic activity/Vol] 32 U/L Normal 5-33 [facility] Comment on above: Performed By: #### A ST, ALT #### [facility] [address] [place] [address] Agency Manager: Robert Casiano MD Yes[place] 07-11-2023 AST [Catalytic activity/Vol] 23 U/L Normal <32 [facility] Comment on above: Performed By: #### A ST, ALT #### [facility] [address] [place] [place] [address] Agency Manager: Robert Casiano MD TSH w/reflex to FT4on 2022 Thyroid Stim. Horm. 2.14 uIU/mL Normal 0.30-5.00 [facility] Comment on above: Performed By: #### T SHX #### [facility] [address] [place] [address] Agency Manager: Robert Casiano MD Glucose, Fastingon Glucose [Mass/Vol] 77 mg/dL 70 - 99 mg/dL [facility] Lipid Panelon 04-18-2022 Cholesterol [Mass/Vol] 194 mg/dL NINF - 200 mg/dL [facility] Comment on above: Cholesterol Guidelines: <200 Desirable 200-240 Borderline >240 Undesirable Cholesterol in HDL [Mass/Vol] 47 mg/dL 40 - PINF mg/dL [facility] Comment on above: HDL Guidelines: <40 Undesirable 40-59 Borderline >59 Desirable Cholesterol in LDL [Mass/Vol] 129 mg/dL 0 - 130 mg/dL [facility] Comment on above: LDL Guidelines: <100 Desirable 100-129 Near to/above Desirable 130-159 Borderline >159 Undesirable Direct (measured) LDL and calculated LDL are not interchangeable tests. Cholesterol.total/Ch olesterol in HDL [Mass ratio] 4.1 {ratio} NINF - 5 [employer] Triglyceride [Mass/Vol] 89 mg/dL NINF - 150 mg/dL [employer] Comment on above: Triglyceride Guidelines: <150 Desirable 150-199 Borderline 200-499 High >499 Very high Based on AHA Guidelines for fasting triglyceride, June 2012. [employer] Glucose, FastingOrdered By: Gunnar Palacios on 04-18-2021 Glucose [Mass/Vol] 85 mg/dL 70 - 99 mg/dL [facility] Phone: [employer] Phone: Lipid PanelOrdered By: Wesley Palacios on 04-18-2021 Cholesterol [Mass/Vol] 180 mg/dL <200 [employer] Phone: Comment on above: Cholesterol Guidelines: <200 Desirable 200-240 Borderline >240 Undesirable Cholesterol in HDL [Mass/Vol] 45 mg/dL >40 [employer] Phone: Comment on above: HDL Guidelines: <40 Undesirable 40-59 Borderline >59 Desirable Cholesterol in LDL [Mass/Vol] 113 mg/dL 0 - 130 mg/dL [employer] Phone: Comment on above: LDL Guidelines: <100 Desirable 100-129 Near to/above Desirable 130-159 Borderline >159 Undesirable Direct (measured) LDL and calculated LDL are not interchangeable tests. Cholesterol in VLDL [Mass/Vol] NOT REPORTED 1 - 30 mg/dL [employer] Phone: Cholesterol.total/Ch olesterol in HDL [Mass ratio] 4 {ratio} <5 [employer] Phone: Triglyceride [Mass/Vol] 112 mg/dL <150 [employer] Phone: Comment on above: Triglyceride Guidelines: <150 Desirable 150-199 Borderline 200-499 High >499 Very high Based on AHA Guidelines for fasting triglyceride, June 2012. [employer] Phone: Glucose, Fastingon 9 Glucose [Mass/Vol] 106 mg/dL High 70 - 99 mg/dL [facility] Interpretation and review of laboratory results Abnormal [facility] Insulin, Totalon 07-31-2019 INR Coag (Bld) [Relative time] [facility] Comment on above: Fastin.6-24.9 30 min: 20-112 60 min: 29-88 90 min: 26-84 120 min: 22-79 Insulin 44.5 mU/L [facility] Insulin Comment NOT REPORTED Hiwot Garcia [facility] TSHon 07-31-2019 TSH Qn 2.26 m[IU]/L [facility] Encounters Encounter Date Encounter Type Care Provider Facility Start: 04-07-2024 End: 04-07-2024 ambulatory ЕКАТЕРИНА R [facility] Start: 03-31-2024 End: 03-31-2024 ambulatory ЕКАТЕРИНА JABARI Not Available Start: 03-09-2024 End: 03-09-2024 ambulatory ЕКАТЕРИНА JABARI Not Available Start: 03-03-2024 End: 03-03-2024 ambulatory ЕКАТЕРИНА JABARI Not Available Start: 02-20-2024 End: 02-20-2024 ambulatory ЕКАТЕРИНА JABARI Not Available Start: 02-16-2024 End: 02-16-2024 ambulatory ЕКАТЕРИНА JABARI Not Available Start: 10-30-2023 End: 10-30-2023 ambulatory ЕКАТЕРИНА JABARI Not Available Start: 10-20-2023 End: 10-21-2023 ambulatory EMILY [facility] Start: 07-11-2023 End: 07-12-2023 ambulatory EMILYDOV WARREN [facility] Start: 05-26-2023 End: 05-27-2023 ambulatory EMILY Champion WARREN [facility] Start: 04-18-2022 End: 04-18-2022 Subsequent hospital visit by physician Gunnar Palacios MD Work Phone: [email or web address] Comment on above: Screening for diabet es mellitus; Screening cholesterol level Start: 01-30-2022 End: 01-30-2022 Patient encounter procedure Gunnar Palacios MD Work Phone: [facility] Start: 01-30-2022 End: 01-30-2022 Subsequent hospital visit by physician Gunnar Palacios MD Work Phone: [facility] Comment on above: Women's annual routi ne gynecological examination Start: 04-18-2021 End: 04-18-2021 Patient encounter status Gunnar Palacios MD Work Phone: [facility] Start: 04-18-2021 End: 04-18-2021 Subsequent hospital visit by physician Gunnar Palacios MD Work Phone: [facility] Comment on above: Wellness examination Start: 07-31-2019 End: 07-31-2019 [facility] Comment on above: Irregular menses Procedures Date Procedure Procedure Detail Performing Clinician Start: 04-18-[address] gtt 3 specimens Gunnar Palacios MD Work Phone: Start: 04-18-2022 Lipid panel Gunnar Palaciso MD Work Phone: Start: 01-30-2022 Microscopic observat [...] tolerance te st gtt 3 specimens Olga Osborne Chuck Hernandez Work Phone: Start: 07-31-2019 Assay of thyroid stimulating hormone tsh Olga Osborne Chuck Hernandez Work Phone: Plan of Treatment Date Care Activity Detail Author Start: 01-30-2025 Screening for malign ant neoplasm of cervix Pap smear [facility] Start: 10-06-2023 DTaP/Tdap/Td vaccine (7 - Td or Tdap) DTaP/Tdap/Td vaccine (7 - Td or Tdap) [facility] Start: 10-06-2023 DTaP/Tdap/Td vaccine (7 - Td) DTaP/Tdap/Td vaccine (7 - Td) [place], [place] Start: 02-05-2023 End: 02-05-2023 Patient encounter procedure 02/05/2023 Office Visit Obstetrics and Gynecology Sarah Horn PA-C [address] [place] [address] [facility] Start: 05-16-2022 Influenza vaccination [facility] Start: 04-19-2022 End: 04-19-2022 Patient encounter procedure 04/19/2022 Office Visit Primary Care Gunnar Palacios MD [address] [place] [id number] [facility] Start: 04-16-2022 Depression Screen Depression Screen [facility] Start: 05-16-2021 Influenza vaccination Flu vaccine (# 1) [facility] [employer] Phone: Start: 08-03-2019 End: 08-03-2019 Office Visit 08/03/2019 Office Visit Obstetrics and Gynecology [facility] 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 Start: 05-16-2019 Influenza vaccination Flu vaccine (# 1) [place], [place] Start: 04-02-2017 Chlamydia screen Chlamydia screen [place], [place] Start: 04-02-2017 Screening for Chlamy daniella trachomatis Chlamydia screen [facility] Start: 2017 Cervical cancer screen Cervical canc er screen [place], [place] Start: 2017 Screening for malign ant neoplasm of cervix [facility] Start: 2014 Hepatitis C screening Hepatitis C sc reen [facility] Start: 2011 HIV screen HIV screen [place], [place] Start: 2008 COVID-19 Vaccine (1) COVID-19 Vaccin e (1) [facility] Work Phone: Start: 2007 HPV vaccine (1 - 2-d ose series) HPV vaccine (1 - 2-dose series) [facility] Start: 2007 HPV vaccine (1 - Fem rahul 2-dose series) HPV vaccine (1 - Female 2-dose series) [place], [place] Start: 2001 COVID-19 Vaccine (1) COVID-19 Vaccin e (1) [facility] Start: 1996 COVID-19 Vaccine (#1) COVID-19 Vacci ne (#1) [facility] Start: 1996 Hepatitis C screening Hepatitis C sc reen [facility] Phone: End: 01-30-2022 Cytopathology procedure, preparation of smear, genital source [facility] Routine Women's annual routine gynecological examination 1 Occurrences starting 01/30/2022 until 01/30/2022 [facility] Phone: Comment on above: 1 Occurrences starti ng 01/30/2022 until 01/30/2022 Immunizations Immunization Date Immunization Notes Care Provider Fa noelle 06-15-2015 influenza virus vacc ine, whole virus [facility] 10-06-2013 hepatitis A vaccine, unspecified formulation [facility] [place] 10-06-2013 tetanus toxoid, redu linda diphtheria toxoid, and acellular pertussis vaccine, adsorbed [place], [place] 05-25-2013 varicella virus vaccine [facility], [place] 02-25-2013 hepatitis A vaccine, unspecified formulation [facility] , [place] 02-25-2013 meningococcal polysaccharide (groups A, C, Y and W-135) diphtheria toxoid conjugate vaccine (MCV4P) [place], [place] 03-05-2001 diphtheria, tetanus toxoids and acellular pertussis vaccine [facility], [place] 03-05-2001 measles, mumps and r ubella virus vaccine [place], [place] 03-05-2001 poliovirus vaccine, inactivated [facility], [place] 07-14-1997 diphtheria, tetanus toxoids and acellular pertussis vaccine [facility], [place] 05-09-1997 measles, mumps and r ubella virus vaccine [facility], [place] 05-09-1997 varicella virus vaccine [facility], [place] 1996 diphtheria, tetanus toxoids and acellular pertussis vaccine [facility], [place] 1996 hepatitis B vaccine, unspecified formulation [facility] , [place] 1996 poliovirus vaccine, inactivated [facility], [place] 1996 diphtheria, tetanus toxoids and acellular pertussis vaccine [facility], [place] 1996 haemophilus influenz ae type b vaccine, PRP-OMP conjugate [facility], [place] 1996 poliovirus vaccine, inactivated [facility], [place] 1996 diphtheria, tetanus toxoids and acellular pertussis vaccine [facility] 1996 haemophilus influenz ae type b vaccine, PRP-OMP conjugate [facility], [place] 1996 poliovirus vaccine, inactivated [facility], [place] 1996 haemophilus influenz ae type b vaccine, PRP-OMP conjugate [facility], [place] 1996 hepatitis B vaccine, unspecified formulation [facility] , [place] 1996 haemophilus influenz ae type b vaccine, PRP-OMP conjugate [facility], [place] 1996 hepatitis B vaccine, unspecified formulation [facility] , [place] Payers Date Payer Category Payer Unknown [id number] 2021 Unknown [id number] 2020 Unknown [id number] 2016 Unknown [facility] xxxxxxxxxxxx 2016-Present [phone] [address] [place] [address] xxxxxxxxxxxx [id number] 1996 Unknown [id number] 1996 Unknown [id number] 1996 Unknown [id number] 1996 Unknown [id number] 9 1996 Unknown [id number] [id number] 9 1996 Unknown [id number] 9 1996 Unknown [id number] [id number] 9 1996 Unknown [id number] [id number] 9 1996 Unknown [id number] [id number] 9 1996 Unknown [id number] 6 1996 Unknown [id number] 6 Social History Date Type Detail Facility Start: 07-16-2017 End: 07-13-2019 Tobacco smoking status NHIS Never smoker [place], [place] Start: 07-13-2019 End: 01-30-2022 Alcohol intake Current non-drinker of alcohol (finding) [place], [place] Start: 1995 Sex Assigned At Not on file [place] Start: 07-16-2017 End: 04-16-2021 Tobacco use and exposure Never used [employer] Phone: Start: 04-16-2021 History SDOH Financial 5 [employer] Phone: Start: 04-16-2021 History SDOH Food Worry 1 [employer] Phone: Start: 04-16-2021 History SDOH Transpo rt Med 2 [employer] Phone: Evaluation note Note Date & Type Note Facility Evaluation note Diagnosis Wellness examination documented in this encounter [employer] Phone: Evaluation note Note Date & Type Note Facility Evaluation note Diagnosis Women's annual routine gynecological examination documented in this encounter [employer] Phone: Evaluation note Note Date & Type Note Facility Evaluation note Diagnosis Screening for diabetes mellitus Screening cholesterol level Screening for lipoid disorders documented in this encounter [facility] Phone: Assessments Diagnosis Irregular menses Irregular menstrual cycle Advance Directives No Advanced Directives Records FoundDocuments on File Type Date Recorded Patient Irrigator Head Expl anation Advance Directives and Living Will Power of Log Yard Manager Latest Code Status on File Code Status Date Activated Date Inactivated Comments Full Code 09/13/2015 8:45 PM 09/14/2015 5:05 PM Documents on File Type Date Recorded Patient Irrigator Head Expl anation ACP-Advance Directive ACP-Power of Log Yard Manager Summary Purpose Family History No Family History Records FoundNo Family History Records FoundNo Family History Records Found Additional Source Comments Care Teams (unrecognized sec tion and content) Fans Clerk Relationship Specialty Start Date End Date Gunnar Palacios MD [address] [place] [id number] PCP - General Family Medicine 09/22/15 Fans Clerk Relationship Specialty Start Date End Date Gunnar Palacios MD [address] [place] [address] [address] [place] [address] PCP - General Family Medicine 09/22/15 INFORMATION SOURCE (unrecogn ized section and content) DATE CREATED AUTHOR 10/21/2023 [facility] DATE CREATED AUTHOR AUTHOR'S ORGANIZ ATION 04/04/2024 [facility] DATE CREATED AUTHOR AUTHOR'S ORGANIZ ATION 04/09/2024 [facility] FOR RECORDS PERTAINING TO PATIENTS WHO ARE [...] BE BASED ON THE PRIMARY CLINICAL RECORDS. [employer] provides no warranty or guarantee of the accuracy or completeness of information in this document.
[2024-04-21 12:29] LABS: Glucose Fasting 78 mg/dL (<95)
[2024-04-21 12:49] LABS: Glucose 1 Hour 124 mg/dL (<180)
[2024-04-21 13:58] LABS: Glucose 2 Hour 135 mg/dL (<155)
[2024-04-21 14:52] LABS: Glucose 3 Hour 140 mg/dL (<140)
[2024-04-23 02:07] LABS: AFP Value 61.1 ng/mL (.); Gest. Age on Collection Date 18.6 weeks (.); Insulin Dep Diabetes No (.); Maternal Age At EDD 28.5 yr (.); OSBR Risk 1 IN 2270 (.); Results Report (.)
== END 2024-04-21 11:20 | disposition home or self-care (01) ==
LOC: LAB 11:19
PROVIDERS: Visit Provider Obstetrics & Gynecology
DX: Z34.92 Encounter for supervision of normal pregnancy, unspecified, second trimester (principal); R73.09 Other abnormal glucose
CPT/HCPCS: 36415; 82105; 82951; 82952

== ENCOUNTER 2024-06-14 08:23 | Outpatient (OUT) | payer OTHER, SELFPAY ==
--- OUTSIDE RECORDS SUMMARY | 2024-06-14 08:28 | XMS_ITS | CCD ---
Author Organization [facility] Care Team Providers Care Director Insurance Name Role Phone Gunnar Palacios Primary Care Provider [phone] EMILY WARREN Primary Care Unavailable EMILY WARREN Referring Unavailable EMILY WARREN Referring Unavailable EMILY WARREN Primary Care Unavailable EMILY WARREN Referring Unavailable EMILY WARREN Primary Care Unavailable JABARI, ЕКАТЕРИНА R Referring Unavailable KING, THEODORE Attending Unavailable SUNITA RAPP Referring Unavail able JABARI, ЕКАТЕРИНА R Referring Unavailable CATHY, RYAN Attending Unavailable JABARI, ЕКАТЕРИНА R Referring Unavailable CATHY, RYAN Attending Unavailable JABARI, ЕКАТЕРИНА R Referring Unavailable JABARI, ЕКАТЕРИНА R Referring Unavailable KING, THEODORE Attending Unavailable JABARI, ЕКАТЕРИНА R Referring Unavailable JABARI, ЕКАТЕРИНА Attending Unavailable JABARI, ЕКАТЕРИНА Attending Unavailable JABARI, ЕКАТЕРИНА Attending Unavailable JABARI, ЕКАТЕРИНА Attending Unavailable JABARI, ЕКАТЕРИНА Attending Unavailable JABARI, ЕКАТЕРИНА Attending Unavailable KESHA MERRILL Attending Unavailable KING, THEODORE Referring Unavailable KING, THEODORE Referring Unavailable MOUSSAYADI Referring Unavailable Allergies Allergy Classification Reported Allergen(s) Allergy Type Date of Onset Reaction(s) Facility Cephalosporins (antibiotic) (1 source) cefprozil Drug Allergy 05-10-2013 [facility] (5 sources) cefprozil; Translations: [CEFPROZIL] Drug Allergy 05-10-2013 [facility]- [place], [place] Medications Current Medications Medication Drug Class(es) Dates Sig (Normalized) Sig (Original) metFORMIN hydrochloride 500 mg oral tablet (3 sources) Biguanide Start: 01-30-2022 take 3 tablets by mouth once daily at breakfast metFORMIN (GLUCOPHAGE) 500 MG tablet Take 3 tablets by mouth daily (with breakfast) 90 tablet 12 01/30/2022 Active Start: 09-07-2019 take 3 tablets by mo ut once daily at breakfast metFORMIN (GLUCOPHAGE) 500 MG tablet Take 3 tablets by mouth daily (with breakfast) 90 tablet 11 09/07/2019 Active Problems Active Problems Problem Classification Problem Date Documented Date Episodic/Chronic Anxiety disorders (4 sources) Anxiety; Translations: [Anxiety disorder, unspecified] Onset: 04-28-2015 04-28-2015 Chronic Diabetes mellitus without complication (4 sources) Hyperglycemia, unspecified; Translations: [Prediabetes] Onset: 05-26-2023 Episodic Disorders of lipid metabolism (3 sources) Mixed hyperlipidemia; Translations: [Mixed hyperlipidemia] Onset: 05-26-2023 Chronic Hemorrhage during ; abruptio placenta; placenta previa (1 source) Other antepartum hemorrhage, second trimester; Translations: [Other antepartum hemorrhage, second trimester] Onset: 04-21-2024 Episodic Menstrual disorders (5 sources) Irregular periods; Translations: [Dysmenorrhea] Onset: 09-21-2015 09-21-2015 Chronic Other complications of (2 sources) Obesity complicating , unspecified trimester; Translations: [Obesity complicating , unspecified trimester] Onset: 04-07-2024 Chronic Other complications of (1 source) Malformation of placenta, unspecified, unspecified trimester; Translations: [Malformation of placenta, unspecified, unspecified trimester] Onset: 05-28-2024 Episodic Other complications of (1 source) Circumvallate placenta, second trimester; Translations: [Circumvallate placenta, second trimester] Onset: 05-05-2024 Episodic Other complications of (1 source) Maternal care for other known or suspected poor growth, second trimester, not applicable or unspecified; Translations: [Maternal care for other known or suspected poor growth, second trimester, not applicable or unspecified] Onset: 05-05-2024 Episodic Other complications of (1 source) Thromboembolism in , first trimester; Translations: [Thromboembolism in , first trimester] Onset: 04-21-2024 Episodic Other complications of (1 source) Maternal care [...] second trimester, not applicable or unspecified] Onset: 04-21-2024 Episodic Pulmonary heart disease (9 sources) Acute pulmonary embolism; Translations: [Other pulmonary [...] width (RBC) [Ratio] 13.3 % Normal 11.8-14.4 [facility] Comment on above: Performed By: #### C P, CBC #### [facility] [address] [place] [address] Hat Lining Paster: Robert Casiano MD #### GLYHGB #### [address] [place], [place] [id number] Hat Lining Paster: Ivan Perez MD Hematocrit (Bld) [Volume fraction] 42.6 % Normal 36.3-47.1 [facility] Comment on above: Performed By: #### C P, CBC #### [facility] [address] [place] [address] Hat Lining Paster: Robert Casiano MD #### GLYHGB #### [address] [place], [place] [phone] Hat Lining Paster: Ivan Perez MD Hemoglobin (Bld) [Mass/Vol] 13.6 g/dL Normal 11.9-15.1 [facility] Comment on above: Performed By: #### C P, CBC #### [facility] [address] [place] [address] Hat Lining Paster: Robert Casiano MD #### GLYHGB #### [address] [place], [place] [phone] Hat Lining Paster: Ivan Perez MD MCH (RBC) [Entitic mass] 28.3 pg Normal 25.2-33.5 [facility] Comment on above: Performed By: #### C P, CBC #### [facility] [address] [place] [address] Hat Lining Paster: Robert Casiano MD #### GLYHGB #### [address] [place], [place] [phone] Hat Lining Paster: Ivan Perez MD MCHC (RBC) [Mass/Vol] 31.9 g/dL Normal 28.4-34.8 [facility] Comment on above: Performed By: #### C P, CBC #### [facility] [address] [place], [place] [id number] Hat Lining Paster: Robert Casiano MD #### GLYHGB #### [address] [place], [place] [phone] Hat Lining Paster: Ivan Perez MD MCV (RBC) [Entitic vol] 88.6 fL Normal 82.6-102.9 [facility] Comment on above: Performed By: #### C P, CBC #### [facility] [address] [place], [place] [phone] Hat Lining Paster: Robert Casiano MD #### GLYHGB #### [address] [id number] Hat Lining Paster: Ivan Perez MD NRBC Automated 0.0 per 100 WBC Normal 0.0 [facility] Comment on above: Performed By: #### C P, CBC #### [facility] [address] [place], [place] [phone] Hat Lining Paster: Robert Casiano MD #### GLYHGB #### [address] [address] Hat Lining Paster: Ivan Perez MD Platelet mean volume (Bld) [Entitic vol] 9.1 fL Normal 8.1-13.5 [facility] Comment on above: Performed By: #### C P, CBC #### [facility] [address] [place], [place] [id number] Hat Lining Paster: Robert Casiano MD #### GLYHGB #### [address] [address] Hat Lining Paster: Ivan Perez MD Platelets (Bld) [#/Vol] 322 10*3/uL Normal 138-453 [facility] Comment on above: Performed By: #### C P, CBC #### [facility] [address] [place], [place] [id number] Hat Lining Paster: Robert Casiano MD #### GLYHGB #### [address] [place] [address] Hat Lining Paster: Ivan Perez MD RBC (Bld) [#/Vol] 4.81 10*6/uL Normal 3.95-5.11 [facility] Comment on above: Performed By: #### C P, CBC #### [facility] [address] [place], [place] [id number] Hat Lining Paster: Robert Casiano MD #### GLYHGB #### [address] [phone] Hat Lining Paster: Ivan Perez MD WBC (Bld) [#/Vol] 7.9 10*3/uL Normal 3.5-11.3 [facility] Comment on above: Performed By: #### C P, CBC #### [facility] [address] [place], [place] [id number] Hat Lining Paster: Robert Casiano MD #### GLYHGB #### [address] [phone] Hat Lining Paster: Ivan Perez MD Comp Metabolic Profon 2023 Albumin [Mass/Vol] 4.3 g/dL Normal 3.5-5.2 [facility] Comment on above: Performed By: #### C P, CBC #### [facility] [address] [place], [place] [id number] Hat Lining Paster: Robert Casiano MD #### GLYHGB #### [address] [place], [place] [phone] Hat Lining Paster: Ivan Perez MD Albumin/Glob Ratio 1.4 Normal 1.0-2.5 [facility] Comment on above: Performed By: #### C P, CBC #### [facility] [address] [place], [place] [phone] Hat Lining Paster: Robert Casiano MD #### GLYHGB #### [facility] [address] [place] [address] Hat Lining Paster: Ivan Perez MD Alkaline Phos 49 U/L Normal 35-104 [facility] Comment on above: Performed By: #### C P, CBC #### [facility] [address] [place], [place] [phone] Hat Lining Paster: Robert Casiano MD #### GLYHGB #### [address] [address] Hat Lining Paster: Ivan Perez MD ALT [Catalytic activity/Vol] 29 U/L Normal 5-33 [facility] Comment on above: Performed By: #### C P, CBC #### [facility] [address] [place] [address] Dr[address] [place], [place] [phone] Hat Lining Paster: Robert Casiano MD #### GLYHGB #### [address] [address] Hat Lining Paster: Ivan Perez MD Anion gap [Moles/Vol] 12 mmol/L Normal 9-17 [facility] Comment on above: Performed By: #### C P, CBC #### [facility] [address] [place] [address] Hat Lining Paster: Robert Casiano MD #### GLYHGB #### [address] [place] [address] Hat Lining Paster: Ivan Perez MD AST [Catalytic activity/Vol] 25 U/L Normal <32 [facility] Comment on above: Performed By: #### C P, CBC #### [facility] [address] [place], [place] [id number] Hat Lining Paster: Robert Casiano MD #### GLYHGB #### [address] [phone] Hat Lining Paster: Ivan Perez MD Bilirubin [Mass/Vol] 0.2 mg/dL Low 0.3-1.2 [facility] Comment on above: Performed By: #### C P, CBC #### [facility] [address] [place] [address] [address]. [place], [place] [id number] Hat Lining Paster: Robert Casiano MD #### GLYHGB #### [address] [phone] Hat Lining Paster: Ivan Perez MD BUN/CRE Ratio 28 High 9-20 [facility] Comment on above: Performed By: #### C P, CBC #### [facility] [address] [place] [address] [place] [place], [place] [phone] Hat Lining Paster: Robert Casiano MD #### GLYHGB #### [address] [address] Hat Lining Paster: Ivan Perez MD Calcium [Mass/Vol] 9.1 mg/dL Normal 8.6-10.4 [facility] Comment on above: Performed By: #### C P, CBC #### [address] [place], [place] [phone] Hat Lining Paster: Robert Casiano MD #### GLYHGB #### [address] [address] Hat Lining Paster: Ivan Perez MD Chloride [Moles/Vol] 108 mmol/L High 98-107 [facility] Comment on above: Performed By: #### C P, CBC #### [facility] [address] [place] [address] [address] [place], [place] [phone] Hat Lining Paster: Robert Casiano MD #### GLYHGB #### [address] [place] [phone] Hat Lining Paster: Ivan Perez MD CO2 [Moles/Vol] 24 mmol/L Normal 20-31 [facility] Comment on above: Performed By: #### C P, CBC #### [facility] [address] [place], [place] 0386[address] Hat Lining Paster: Robert Casiano MD #### GLYHGB #### [facility] [address] [place], [place] [phone] Hat Lining Paster: Ivan Perez MD Creatinine [Mass/Vol] 0.6 mg/dL Normal 0.5-0.9 [facility] Comment on above: Performed By: #### C P, CBC #### [facility] [address] [place] [address] Hat Lining Paster: Robert Casiano MD #### GLYHGB #### [address] [phone] Hat Lining Paster: Ivan Perez MD GFR/1.73 sq M.predicted among non-blacks MDRD (S/P/Bld) [Vol rate/Area] mL/min/{1.73_m2} Normal >60 [facility] Comment on above: Result Comment: These [...] Performed By: #### C P, CBC #### [facility] [address] [place] [address] Hat Lining Paster: Robert Casiano MD #### GLYHGB #### [facility] [address] [place], [place] [phone] Hat Lining Paster: Ivan Perez MD Glucose [Mass/Vol] 90 mg/dL Normal 70-99 [facility] Comment on above: Performed By: #### C P, CBC #### [facility] [address] [place], [place] [phone] Hat Lining Paster: Robert Casiano MD #### GLYHGB #### [address] [address] Hat Lining Paster: Ivan Perez MD Potassium [Moles/Vol] 4.2 mmol/L Normal 3.7-5.3 [facility] Comment on above: Performed By: #### C P, CBC #### [facility] [address] [place], [place] [phone] Hat Lining Paster: Robert Casiano MD #### GLYHGB #### [address] [phone] Hat Lining Paster: Ivan Perez MD Protein [Mass/Vol] 7.3 g/dL Normal 6.4-8.3 [facility] Comment on above: Performed By: #### C P, CBC #### [facility] [address] [place], [place] 604[address] Hat Lining Paster: Robert Casiano MD #### GLYHGB #### [address] [address] Hat Lining Paster: Ivan Perez MD Sodium [Moles/Vol] 144 mmol/L Normal 135-144 [facility] Comment on above: Performed By: #### C P, CBC #### [facility] [address] [place], [place] [phone] Hat Lining Paster: Robert Casiano MD #### GLYHGB #### [address] [address] Hat Lining Paster: Ivan Perez MD Urea nitrogen [Mass/Vol] 17 mg/dL Normal 6-20 [facility] Comment on above: Performed By: #### C P, CBC #### [facility] [address] [place], [place] [phone] Hat Lining Paster: Robert Casiano MD #### GLYHGB #### [address] [address] Hat Lining Paster: Ivan Perez MD Hemoglobin A1Con 5 Glucose [Mass/Vol] 105 mg/dL Normal [facility] Comment on above: Result Comment: The ADA and AACC recommend providing the estimated average glucose result to permit better patient understanding of their HBA1c result. Performed By: #### C P, CBC #### [facility] [address] [place] [address] Hat Lining Paster: Robert Casiano MD #### GLYHGB #### [address] [address] Hat Lining Paster: Ivan Perez MD HbA1c (Bld) [Mass fraction] 5.3 % Normal 4.0-6.0 [facility] Comment on above: Performed By: #### C P, CBC #### [facility] [address] [place], [place] [phone] Hat Lining Paster: Robert Casiano MD #### GLYHGB #### [address] [address] Hat Lining Paster: Ivan Perez MD Lipid Profileon 10-20-2023 Cholesterol [Mass/Vol] 163 mg/dL Normal <200 [facility] Comment on above: Result Comment: Cholesterol Guidelines: <200 Desirable 200-240 Borderline >240 Undesirable Performed By: #### L IPR #### [address] [address] Hat Lining Paster: Ivan Perez MD Cholesterol in HDL [Mass/Vol] 44 mg/dL Normal >40 [facility] Comment on above: Result Comment: HDL Guidelines: <40 Undesirable 40-59 Borderline >59 Desirable Performed By: #### L IPR #### [facility] [address] [place] [address] Hat Lining Paster: Ivan Perez MD Cholesterol in LDL [Mass/Vol] 100 mg/dL Normal 0-130 [facility] Comment on above: Result Comment: LDL Guidelines: <100 Desirable 100-129 Near to/above Desirable 130-159 Borderline >159 Undesirable Direct (measured) LDL and calculated LDL are not interchangeable tests. Performed By: #### L IPR #### [address] [address] Hat Lining Paster: Ivan Perez MD Cholesterol.total/Ch olesterol in HDL [Mass ratio] 3.7 {ratio} Normal <5 [facility] Comment on above: Performed By: #### L IPR #### [address] [address] Hat Lining Paster: Ivan Perez MD Triglyceride [Mass/Vol] 94 mg/dL Normal <150 [facility] Comment on above: Result Comment: Triglyceride Guidelines: <150 Desirable 150-199 Borderline 200-499 High >499 Very high Based on AHA Guidelines for fasting triglyceride, June 2012. Performed By: #### L IPR #### [address] [address] Hat Lining Paster: Ivan Perez MD [place] 07-11-2023 ALT [Catalytic activity/Vol] 32 U/L Normal 5-33 [facility] Comment on above: Performed By: #### A ST, ALT #### [facility] [address] [place] [address] Hat Lining Paster: Robert Casiano MD Yesi 07-11-2023 AST [Catalytic activity/Vol] 23 U/L Normal <32 [facility] Comment on above: Performed By: #### A ST, ALT #### [facility] [address] [place] [address] Hat Lining Paster: Robert Casiano MD TSH w/reflex to FT4on 2022 Thyroid Stim. Horm. 2.14 uIU/mL Normal 0.30-5.00 [facility] Comment on above: Performed By: #### T SHX #### [facility] [address] [place] [address] Hat Lining Paster: Robert Casiano MD Glucose, Fastingon Glucose [Mass/Vol] 77 mg/dL 70 - 99 mg/dL [facility] Lipid Panelon 04-18-2022 Cholesterol [Mass/Vol] 194 mg/dL NINF - 200 mg/dL [facility] Comment on above: Cholesterol Guidelines: <200 Desirable 200-240 Borderline >240 Undesirable Cholesterol in HDL [Mass/Vol] 47 mg/dL 40 - PINF mg/dL [facility] Comment on above: HDL Guidelines: <40 Undesirable 40-59 Borderline >59 Desirable Cholesterol in LDL [Mass/Vol] 129 mg/dL 0 - 130 mg/dL [facility] Comment on above: LDL Guidelines: <100 Desirable 100-129 Near to/above Desirable 130-159 Borderline >159 Undesirable Direct (measured) LDL and calculated LDL are not interchangeable tests. Cholesterol.total/Ch olesterol in HDL [Mass ratio] 4.1 {ratio} NINF - 5 [facility] Triglyceride [Mass/Vol] 89 mg/dL NINF - 150 mg/dL [facility] Comment on above: Triglyceride Guidelines: <150 Desirable 150-199 Borderline 200-499 High >499 Very high Based on AHA Guidelines for fasting triglyceride, June 2012. [facility] Glucose, FastingOrdered By: Gunnar Palacios on 04-18-2021 Glucose [Mass/Vol] 85 mg/dL 70 - 99 mg/dL [facility] [employer] Work Phone: [facility] [employer] Work Phone: Lipid PanelOrdered By: Wesley Palacios on 04-18-2021 Cholesterol [Mass/Vol] 180 mg/dL <200 [facility] [employer] Work Phone: Comment on above: Cholesterol Guidelines: <200 Desirable 200-240 Borderline >240 Undesirable Cholesterol in HDL [Mass/Vol] 45 mg/dL >40 [employer] Phone: Comment on above: HDL Guidelines: <40 Undesirable 40-59 Borderline >59 Desirable Cholesterol in LDL [Mass/Vol] 113 mg/dL 0 - 130 mg/dL [employer] Phone: Comment on above: LDL Guidelines: <100 Desirable 100-129 Near to/above Desirable 130-159 Borderline >159 Undesirable Direct (measured) LDL and calculated LDL are not interchangeable tests. Cholesterol in VLDL [Mass/Vol] NOT REPORTED 1 - 30 mg/dL [employer] Phone: Cholesterol.total/Ch olesterol in HDL [Mass ratio] 4 {ratio} <5 [employer] Phone: Triglyceride [Mass/Vol] 112 mg/dL <150 [employer] Phone: Comment on above: Triglyceride Guidelines: <150 Desirable 150-199 Borderline 200-499 High >499 Very high Based on AHA Guidelines for fasting triglyceride, June 2012. [employer] Phone: Glucose, Fastingon 9 Glucose [Mass/Vol] 106 mg/dL High 70 - 99 mg/dL [place], [place] Interpretation and review of laboratory results Abnormal [place], [place] Insulin, Totalon 07-31-2019 INR Coag (Bld) [Relative time] [place], [place] Comment on above: Fastin.6-24.9 30 min: 20-112 60 min: 29-88 90 min: 26-84 120 min: 22-79 Insulin 44.5 mU/L [place], [place] Insulin Comment NOT REPORTED [place], [place] TSHon 07-31-2019 TSH Qn 2.26 m[IU]/L [place], [place] Encounters Encounter Date Encounter Type Care Provider Facility Start: 06-07-2024 End: 06-07-2024 ambulatory [facility] Start: 06-02-2024 End: 06-02-2024 ambulatory KESHA MERRILL Not Available Start: 06-01-2024 End: 06-01-2024 ambulatory [facility] Start: 05-28-2024 End: 05-28-2024 ambulatory [facility] Start: 05-18-2024 End: 05-18-2024 ambulatory [facility] Start: 05-05-2024 End: 05-05-2024 ambulatory ЕКАТЕРИНА JABARI Not Available Start: 05-05-2024 End: 05-05-2024 ambulatory RYAN [facility] Start: 05-05-2024 End: 05-05-2024 ambulatory [facility] Start: 04-21-2024 End: 04-21-2024 ambulatory [facility] Start: 04-07-2024 End: 04-07-2024 ambulatory ЕКАТЕРИНА R [facility] Start: 03-31-2024 End: 03-31-2024 ambulatory ЕКАТЕРИНА JABARI Not Available Start: 03-09-2024 End: 03-09-2024 ambulatory ЕКАТЕРИНА JABARI Not Available Start: 03-03-2024 End: 03-03-2024 ambulatory ЕКАТЕРИНА JABARI Not Available Start: 02-20-2024 End: 02-20-2024 ambulatory ЕКАТЕРИНА JABARI Not Available Start: 02-16-2024 End: 02-16-2024 ambulatory ЕКАТЕРИНА JABARI Not Available Start: 10-30-2023 End: 10-30-2023 ambulatory ЕКАТЕРИНА JABARI Not Available Start: 10-20-2023 End: 10-21-2023 ambulatory [facility] Start: 07-11-2023 End: 07-12-2023 ambulatory EMILY PLAZAN [facility] Start: 05-26-2023 End: 05-27-2023 ambulatory [facility]ILY [facility] Start: 04-18-2022 End: 04-18-2022 Subsequent hospital visit by physician Gunnar Palacios MD Work Phone: [facility] Comment on above: Screening for diabet es mellitus; Screening cholesterol level Start: 01-30-2022 End: 01-30-2022 Patient encounter procedure Gunnar Palacios MD Work Phone: [facility] Start: 01-30-2022 End: 01-30-2022 Subsequent hospital visit by physician Gunnar Palacios MD Work Phone: [facility] Comment on above: Women's annual routi ne gynecological examination Start: 04-18-2021 End: 04-18-2021 Patient encounter status Gunnar Palacios MD Work Phone: [facility] Start: 04-18-2021 End: 04-18-2021 Subsequent hospital visit by physician Gunnar Palacios MD Work Phone: [facility] Comment on above: Wellness examination Start: 07-31-2019 End: 07-31-2019 Subsequent hospital visit by physician Gunnar Palacios [facility] Comment on above: Irregular menses [...] tolerance te st gtt 3 specimens Olga Moyag Work Phone: Start: 07-31-2019 Assay of thyroid stimulating hormone tsh Olga Hernandez Work Phone: Plan of Treatment Date Care Activity Detail Author Start: 01-30-2025 Screening for malign ant neoplasm of cervix Pap smear [facility] Start: 10-06-2023 DTaP/Tdap/Td vaccine (7 - Td or Tdap) DTaP/Tdap/Td vaccine (7 - Td or Tdap) [facility] Start: 10-06-2023 DTaP/Tdap/Td vaccine (7 - Td) DTaP/Tdap/Td vaccine (7 - Td) [place], [place] Start: 02-05-2023 End: 02-05-2023 Patient encounter procedure 02/05/2023 Office Visit Obstetrics and Gynecology Sarah Horn PA-C [address] [place] [address] [facility] Start: 05-16-2022 Influenza vaccination [facility] Start: 04-19-2022 End: 04-19-2022 Patient encounter procedure 04/19/2022 Office Visit Primary Care Gunnar Palacios MD [address] [place] [id number] [facility] Start: 04-16-2022 Depression Screen Depression Screen [facility] Start: 05-16-2021 Influenza vaccination Flu vaccine (# 1) [facility] Work Phone: Start: 08-03-2019 End: 08-03-2019 Office Visit 08/03/2019 Office Visit Obstetrics and Gynecology [facility] RENTAL COORDINATOR Start: 05-16-2019 Influenza vaccination Flu vaccine (# 1) [place], [place] Start: 04-02-2017 Chlamydia screen Chlamydia screen [place], [place] Start: 04-02-2017 Screening for Chlamy daniella trachomatis Chlamydia screen [facility] Start: 2017 Cervical cancer screen Cervical canc er screen [place], [place] Start: 2017 Screening for malign ant neoplasm of cervix [facility] Start: 2014 Hepatitis C screening Hepatitis C sc [facility] Start: 2011 HIV screen HIV screen [place], [place] Start: 2008 COVID-19 Vaccine (1) COVID-19 Vaccin e (1) [facility] Work Phone: Start: 2007 HPV vaccine (1 - 2-d ose series) HPV vaccine (1 - 2-dose series) [facility] Start: 2007 HPV vaccine (1 - Fem rahul 2-dose series) HPV vaccine (1 - Female 2-dose series) [place], [place] Start: 2001 COVID-19 Vaccine (1) COVID-19 Vaccin e (1) [facility] Start: 1996 COVID-19 Vaccine (#1) COVID-19 Vacci ne (#1) [facility]RÉS MARTINE[facility] Start: 1996 Hepatitis C screening Hepatitis C sc reen [facility] Phone: End: 01-30-2022 Cytopathology procedure, preparation of smear, genital source PAP SMEAR Lab Routine Women's annual routine gynecological examination 1 Occurrences starting 01/30/2022 until 01/30/2022 [facility] [employer] Phone: Comment on above: 1 Occurrences starti ng 01/30/2022 until 01/30/2022 Immunizations Immunization Date Immunization Notes Care Provider Justine drake 06-15-2015 influenza virus vacc ine, whole virus [facility] 10-06-2013 hepatitis A vaccine, unspecified formulation [facility] [place] 10-06-2013 tetanus toxoid, redu linda diphtheria toxoid, and acellular pertussis vaccine, adsorbed [facility] [place] 05-25-2013 varicella virus vaccine [facility] 02-25-2013 hepatitis A vaccine, unspecified formulation [facility] [place] 02-25-2013 meningococcal polysaccharide (groups A, C, Y and W-135) diphtheria toxoid conjugate vaccine (MCV4P) [facility] 03-05-2001 diphtheria, tetanus toxoids and acellular pertussis vaccine [facility] 03-05-2001 measles, mumps and r ubella virus vaccine [facility] 03-05-2001 poliovirus vaccine, inactivated [facility] 07-14-1997 diphtheria, tetanus toxoids and acellular pertussis vaccine [facility] 05-09-1997 measles, mumps and r ubella virus vaccine [facility] 05-09-1997 varicella virus vaccine [facility] Peggy daniel [facility] 1996 diphtheria, tetanus toxoids and acellular pertussis vaccine [facility] 1996 hepatitis B vaccine, unspecified formulation [facility] [place] 1996 poliovirus vaccine, inactivated [facility] 1996 diphtheria, tetanus toxoids and acellular pertussis vaccine [facility] 1996 haemophilus influenz ae type b vaccine, PRP-OMP conjugate [facility] 1996 poliovirus vaccine, inactivated [facility] [place] 1996 diphtheria, tetanus toxoids and acellular pertussis vaccine [facility] 1996 haemophilus influenz ae type b vaccine, PRP-OMP conjugate [facility] 1996 poliovirus vaccine, inactivated [facility] [place] 1996 haemophilus influenz ae type b vaccine, PRP-OMP conjugate [facility] 1996 hepatitis B vaccine, unspecified formulation [facility] [place] 1996 haemophilus influenz ae type b vaccine, PRP-OMP conjugate [facility] 1996 hepatitis B vaccine, unspecified formulation [facility] [place] Payers Date Payer Category Payer Unknown [id number] 2021 Unknown [id number] 2020 Unknown [id number] 2016 Unknown [employer] [facility] xxxxxxxxxxxx 2016-Present [phone] [address] [place] [address] [id number] 1996 Unknown [id number] 2.16.840.1.134664.3.579.2.173 1996 Unknown [id number] 2.16.840.1.118959.3.579.2.173 1996 Unknown [id number] 2.16.840.1.807861.3.579.2.173 1996 Unknown [id number] 2.16.840.1.991245.3.579.2.128 6 1996 Unknown [id number] 2.16.840.1.856100.3.579.2.128 6 1996 Unknown [id number] 2.16.840.1.826500.3.579.2.128 6 1996 Unknown [id number] 2.16.840.1.150924.3.579.2.128 6 1996 Unknown [id number] 2.16.840.1.397657.3.579.2.128 6 1996 Unknown [id number] 2.16.840.1.017012.3.579.2.128 6 1996 Unknown [id number] 2.16.840.1.729755.3.579.2.128 6 1996 Unknown [id number] 2.16.840.1.487036.3.579.2.125 9 1996 Unknown [id number] 2.16.840.1.637488.3.579.2.125 9 1996 Unknown [id number] 2.16.840.1.518260.3.579.2.125 9 1996 Unknown [id number] 2.16.840.1.759700.3.579.2.125 9 1996 Unknown [id number] 2.16.840.1.590552.3.579.2.125 9 1996 Unknown [id number] 2.16.840.1.271508.3.579.2.125 9 1996 Unknown [id number] 2.16.840.1.674208.3.579.2.125 9 1996 Unknown [id number] 2.16.840.1.130533.3.579.2.125 9 1996 Unknown [id number] 2.16.840.1.608493.3.579.2.128 6 1996 Unknown [id number] 2.16.840.1.341955.3.579.2.128 6 1996 Unknown [id number] 2.16.840.1.558565.3.579.2.128 6 Social History Date Type Detail Facility Start: 07-16-2017 End: 07-13-2019 Tobacco smoking status NHIS Never smoker [place], [place] Start: 07-13-2019 End: 01-30-2022 Alcohol intake Current non-drinker of alcohol (finding) [place], [place] Start: 1996 Sex Assigned At Not on file [place] Start: 07-16-2017 End: 04-16-2021 Tobacco use and exposure Never used [employer] Phone: Start: 04-16-2021 History SDOH Financial 5 [employer] Phone: Start: 04-16-2021 History SDOH Food Worry 1 [employer] Phone: Start: 04-16-2021 History SDOH Transpo rt Med 2 [employer] Phone: Evaluation note Note Date & Type Note Facility Evaluation note Diagnosis Wellness examination documented in this encounter [employer] Phone: Evaluation note Note Date & Type Note Facility Evaluation note Diagnosis Women's annual routine gynecological examination documented in this encounter [employer] Phone: Evaluation note Note Date & Type Note Facility Evaluation note Diagnosis Screening for diabetes mellitus Screening cholesterol level Screening for lipoid disorders documented in this encounter ANDRÉS MARTINE[facility] [employer] Phone: Assessments Diagnosis Irregular menses Irregular menstrual cycle Advance Directives No Advanced Directives Records FoundDocuments on File Type Date Recorded 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 and Living Will 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 Instructor 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 Canine Service Latest Code Status on File Code Status Date Activated Date Inactivated Comments Full Code 09/13/2015 8:45 PM 09/14/2015 5:05 PM Documents on File Type Date Recorded 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 ACP-Advance Directive ACP-Power of Instructor Trainer Canine Service Summary Purpose Family History No Family History Records FoundNo Family History Records FoundNo Family History Records FoundNo Family History Records Found Additional Source Comments Care Teams (unrecognized sec tion and content) Director Insurance Relationship Specialty Start Date End Date Gunnar Palacios MD [address] [place] [phone] PCP - General Family Medicine 09/22/15 Director Insurance Relationship Specialty Start Date End Date Gunnar Palacios MD [address] [place] [id number] PCP - General Family Medicine 09/22/15 INFORMATION SOURCE (unrecogn ized section and content) DATE CREATED AUTHOR 10/21/2023 Hiwot Gutierrez [facility] DATE CREATED AUTHOR AUTHOR'S ORGANIZ ATION 06/02/2024 [facility] DATE CREATED AUTHOR AUTHOR'S ORGANIZ ATION 06/05/2024 [facility] DATE CREATED AUTHOR AUTHOR'S ORGANIZ ATION 06/09/2024 [facility] FOR RECORDS PERTAINING TO PATIENTS WHO ARE [...] BE BASED ON THE PRIMARY CLINICAL RECORDS. [facility]. provides no warranty or guarantee of the accuracy or completeness of information in this document.
[2024-06-14 10:07] LABS: Basophils Absolute Auto 0.1 10^3/uL (0.0-0.1); Basophils Percent Auto 0.4 % (0.2-2.0); Eosinophils Absolute Auto 0.1 10^3/uL (0.0-0.7); Eosinophils Percent Auto 0.6 % (0.9-7.0); Hematocrit 37.6 % (36.0-48.0); Hemoglobin 12.2 g/dL (12.0-16.0); Immature Granulocytes Abs Auto 0.05 10^3/uL (0.00-0.03); Immature Granulocytes Pct Auto 0.4 % (0.0-0.5); Lymphocytes Absolute Auto 3.1 10^3/uL (1.2-3.8); Lymphocytes Percent Auto 23.6 % (20.5-60.0); Mean Corpuscular HGB Conc 32.4 g/dL (29.9-35.2); Mean Corpuscular Hemoglobin 29.3 pg (26.7-34.0); Mean Corpuscular Volume 90.2 fL (81.0-99.0); Monocytes Absolute Auto 0.6 10^3/uL (0.3-0.8); Monocytes Percent Auto 4.2 % (1.7-12.0); Neutrophils Absolute Auto 9.4 10^3/uL (1.4-6.5); Neutrophils Percent Auto 70.8 % (43.0-75.0); Platelet Count 322 10^3/uL (150-450); Red Blood Count 4.17 10^6/uL (4.20-5.40); Red Cell Distribution Width 13.8 % (11.0-15.0); White Blood Count 13.3 10^3/uL (4.0-11.0)
[2024-06-14 10:26] LABS: Glucose 1 Hour 136 mg/dL (<130)
== END 2024-06-14 08:24 | disposition home or self-care (01) ==
LOC: LAB 08:24
PROVIDERS: Visit Provider Obstetrics & Gynecology
DX: Z13.1 Encounter for screening for diabetes mellitus (principal)
CPT/HCPCS: 36415; 82950; 85025

== ENCOUNTER 2024-06-14 08:38 | Outpatient (OUT) | payer OTHER, SELFPAY ==
--- OUTSIDE RECORDS SUMMARY | 2024-06-14 08:56 | XMS_ITS | CCD ---
Author Organization [facility] Care Team Providers Care Ear Nose Throat Physician Name Role Phone Gunnar Palacios Primary Care Provider [phone] EMILY WARREN Primary Care Unavailable EMILY WARREN [...] (antibiotic) (1 source) cefprozil Drug Allergy 05-10-2013 [facility] (5 sources) cefprozil; Translations: [CEFPROZIL] Drug Allergy 05-10-2013 [facility]- [place], [place] Medications Current Medications Medication [...] width (RBC) [Ratio] 13.3 % Normal 11.8-14.4 [facility] [place] Comment on above: Performed By: #### C P, CBC #### [facility] [address] [place] [address] Tire Specialist: Robert Casiano MD #### GLYHGB #### [address] [place], [place] [id number] T[employer] Specialist: Ivan Perez MD Hematocrit (Bld) [Volume fraction] 42.6 % Normal 36.3-47.1 [facility] [place] Comment on above: Performed By: #### C P, CBC #### [facility] [address] [place] [address] Tire Specialist: Robert Casiano MD #### GLYHGB #### [address] [place], [place] [id number] T[employer] Specialist: Ivan Perez MD Hemoglobin (Bld) [Mass/Vol] 13.6 g/dL Normal 11.9-15.1 [facility] [place] Comment on above: Performed By: #### C P, CBC #### [facility] [address] [place] [address] Tire Specialist: Robert Casiano MD #### GLYHGB #### [address] [address] [place], [place] [id number] Tire Specialist: Ivan Perez MD MCH (RBC) [Entitic mass] 28.3 pg Normal 25.2-33.5 [facility] [place] Comment on above: Performed By: #### C P, CBC #### [facility] [address] [place] [address] Tire Specialist: Robert Casiaon MD #### GLYHGB #### [address] [address] [place], [place] [id number] T[employer] Specialist: Ivan Perez MD MCHC (RBC) [Mass/Vol] 31.9 g/dL Normal 28.4-34.8 [facility] [place] Comment on above: Performed By: #### C P, CBC #### [facility] [address] [place], [place] [phone] [employer] Specialist: Robert Casiano MD #### GLYHGB #### [address] [place], [place] 1018[address] T[employer] Specialist: Ivan Perez MD MCV (RBC) [Entitic vol] 88.6 fL Normal 82.6-102.9 [facility] [place] Comment on above: Performed By: #### C P, CBC #### [facility] [address] [place], [place] [id number] T[employer] Specialist: Robert Casiano MD #### GLYHGB #### [address] [id number] T[employer] Specialist: Ivan Perez MD NRBC Automated 0.0 per 100 WBC Normal 0.0 [facility] [place] Comment on above: Performed By: #### C P, CBC #### [facility] [address] [place], [place] 7834883 T[employer] Specialist: Robert Casiano MD #### GLYHGB #### [address] [address] T[employer] Specialist: Ivan Perez MD Platelet mean volume (Bld) [Entitic vol] 9.1 fL Normal 8.1-13.5 [facility] [place] Comment on above: Performed By: #### C P, CBC #### [facility] [address] [place], [place] 2939[address] T[employer] Specialist: Robert Casiano MD #### GLYHGB #### [address] [address] T[employer] Specialist: Ivan Perez MD Platelets (Bld) [#/Vol] 322 10*3/uL Normal 138-453 [facility] [place] Comment on above: Performed By: #### C P, CBC #### [facility] [address] [place], [place] 8125483 T[employer] Specialist: Robert Casiano MD #### GLYHGB #### [address] [place] [address] Tire Specialist: Ivan Perez MD RBC (Bld) [#/Vol] 4.81 10*6/uL Normal 3.95-5.11 [facility] [place] Comment on above: Performed By: #### C P, CBC #### [facility] [address] [place], [place] 0114783 T[employer] Specialist: Robert Casiano MD #### GLYHGB #### [address] [id number] T[employer] Specialist: Ivan Perez MD WBC (Bld) [#/Vol] 7.9 10*3/uL Normal 3.5-11.3 [facility] [place] Comment on above: Performed By: #### C P, CBC #### [facility] [address] [place], [place] 5057883 T[employer] Specialist: Robert Casiano MD #### GLYHGB #### [address] [id number] T[employer] Specialist: Ivan Perez MD Comp Metabolic Profon 2023 Albumin [Mass/Vol] 4.3 g/dL Normal 3.5-5.2 [facility] [place] Comment on above: Performed By: #### C P, CBC #### [facility] [address] [place], [place] [phone] T[employer] Specialist: Robert Casiano MD #### GLYHGB #### [address] [place], [place] 0498208 Tire Specialist: Ivan Perez MD Albumin/Glob Ratio 1.4 Normal 1.0-2.5 [facility] [place] Comment on above: Performed By: #### C P, CBC #### [facility] [address] [place], [place] 7111683 T[employer] Specialist: Robert Casiano MD #### GLYHGB #### [facility] [address] [place] [address] Tire Specialist: Ivan Perez MD Alkaline Phos 49 U/L Normal 35-104 [facility] Comment on above: Performed By: #### C P, CBC #### [facility] [address] [place], [place] 8728983 T[employer] Specialist: Robert Casiano MD #### GLYHGB #### [address] [address] T[employer] Specialist: Ivan Perez MD ALT [Catalytic activity/Vol] 29 U/L Normal 5-33 [facility] [place] Comment on above: Performed By: #### C P, CBC #### [facility] [address] [place] [address] [address] [place], [place] 0769983 T[employer] Specialist: Robert Casiano MD #### GLYHGB #### [address] [address] T[employer] Specialist: Ivan Perez MD Anion gap [Moles/Vol] 12 mmol/L Normal 9-17 [facility] [place] Comment on above: Performed By: #### C P, CBC #### [facility] [address] [place] [address] T[employer] Specialist: Robert Casiano MD #### GLYHGB #### [address] [place] [address] Tire Specialist: Ivan Perez MD AST [Catalytic activity/Vol] 25 U/L Normal <32 [facility] [place] Comment on above: Performed By: #### C P, CBC #### [facility] [address] [place], [place] [phone] T[employer] Specialist: Robert Casiano MD #### GLYHGB #### [address] [id number] T[employer] Specialist: Ivan Perez MD Bilirubin [Mass/Vol] 0.2 mg/dL Low 0.3-1.2 [facility] Comment on above: Performed By: #### C P, CBC #### [facility] [address] [place] [address] [address] [place], [place] 0099183 T[employer] Specialist: Robert Casiano MD #### GLYHGB #### [address] [id number] T[employer] Specialist: Ivan Perez MD BUN/CRE Ratio 28 High 9-20 [facility] Comment on above: Performed By: #### C P, CBC #### [facility] [address] [place] [address] [address] [place], [place] 1333583 T[employer] Specialist: Robert Casiano MD #### GLYHGB #### [address] [address] T[employer] Specialist: Ivan Perez MD Calcium [Mass/Vol] 9.1 mg/dL Normal 8.6-10.4 [facility] [place] Comment on above: Performed By: #### C P, CBC #### [address] [place], [place] 7783283 T[employer] Specialist: Robert Casiano MD #### GLYHGB #### [address] [address] T[employer] Specialist: Ivan Perez MD Chloride [Moles/Vol] 108 mmol/L High 98-107 [facility] Comment on above: Performed By: #### C P, CBC #### [facility] [address] [place] [address] [address] [place], [place] 3517383 T[employer] Specialist: Robert Casiano MD #### GLYHGB #### [address] [place] [phone] Tire Specialist: Ivan Perez MD CO2 [Moles/Vol] 24 mmol/L Normal 20-31 [facility] Comment on above: Performed By: #### C P, CBC #### [facility] [address] [place], [place] 2840183 T[employer] Specialist: Robert Casiano MD #### GLYHGB #### [facility] [address] [place], [place] 5703108 Tire Specialist: Ivan Perez MD Creatinine [Mass/Vol] 0.6 mg/dL Normal 0.5-0.9 [facility] [place] Comment on above: Performed By: #### C P, CBC #### [facility] [address] [place] [address] Tire Specialist: Robert Casiano MD #### GLYHGB #### [address] [phone] T[employer] Specialist: Ivan Perez MD GFR/1.73 sq M.predicted among non-blacks MDRD (S/P/Bld) [Vol rate/Area] mL/min/{1.73_m2} Normal >60 [facility] [place] Comment on above: Result Comment: These results [...] By: #### C P, CBC #### [facility] [address] [place] [address] Tire Specialist: Robert Casiano MD #### GLYHGB #### [facility] [address] [place], [place] 0798008 Tire Specialist: Ivan Perez MD Glucose [Mass/Vol] 90 mg/dL Normal 70-99 [facility] [place] Comment on above: Performed By: #### C P, CBC #### [facility] [address] [place], [place] 9823583 T[employer] Specialist: Robert Casiano MD #### GLYHGB #### [address] [address] Tire Specialist: Ivan Perez MD Potassium [Moles/Vol] 4.2 mmol/L Normal 3.7-5.3 [facility] [place] Comment on above: Performed By: #### C P, CBC #### [facility] [address] [place], [place] 3546483 T[employer] Specialist: Robert Casiano MD #### GLYHGB #### [address] [phone] T[employer] Specialist: Ivan Perez MD Protein [Mass/Vol] 7.3 g/dL Normal 6.4-8.3 [facility] [place] Comment on above: Performed By: #### C P, CBC #### [facility] [address] [place], [place] 9357383 T[employer] Specialist: Robert Casiano MD #### GLYHGB #### [address] [address] Tire Specialist: Ivan Perez MD Sodium [Moles/Vol] 144 mmol/L Normal 135-144 [facility] [place] Comment on above: Performed By: #### C P, CBC #### [facility] [address] [place], [place] 2439683 T[employer] Specialist: Robert Casiano MD #### GLYHGB #### [address] [address] T[employer] Specialist: Ivan Perez MD Urea nitrogen [Mass/Vol] 17 mg/dL Normal 6-20 [facility] [place] Comment on above: Performed By: #### C P, CBC #### [facility] [address] [place], [place] 8245283 Tire Specialist: Robert Casiano MD #### GLYHGB #### [address] [address] Tire Specialist: Ivan Preez MD Hemoglobin A1Con 7 Glucose [Mass/Vol] 105 mg/dL Normal [facility] [place] Comment on above: Result Comment: The ADA and AACC recommend providing the estimated average glucose result to permit better patient understanding of their HBA1c result. Performed By: #### C P, CBC #### [facility] [address] [place] [address] Tire Specialist: Robert Casiano MD #### GLYHGB #### [address] [address] T[employer] Specialist: Ivan Perez MD HbA1c (Bld) [Mass fraction] 5.3 % Normal 4.0-6.0 [facility] [place] Comment on above: Performed By: #### C P, CBC #### [facility] [address] [place], [place] 2541683 Tire Specialist: Robert Casiano MD #### GLYHGB #### [address] [address] Tire Specialist: Ivan Perez MD Lipid Profileon 10-20-2023 Cholesterol [Mass/Vol] 163 mg/dL Normal <200 [facility] [place] Comment on above: Result Comment: Cholesterol Guidelines: <200 Desirable 200-240 Borderline >240 Undesirable Performed By: #### L IPR #### [address] [address] T[employer] Specialist: Ivan Perez MD Cholesterol in HDL [Mass/Vol] 44 mg/dL Normal >40 [facility] [place] Comment on above: Result Comment: HDL Guidelines: <40 Undesirable 40-59 Borderline >59 Desirable Performed By: #### L IPR #### [facility] [address] [place] [address] Tire Specialist: Ivan Perez MD Cholesterol in LDL [Mass/Vol] 100 mg/dL Normal 0-130 [facility] [place] Comment on above: Result Comment: LDL Guidelines: <100 Desirable 100-129 Near to/above Desirable 130-159 Borderline >159 Undesirable Direct (measured) LDL and calculated LDL are not interchangeable tests. Performed By: #### L IPR #### [address] [address] Tire Specialist: Ivan Perez MD Cholesterol.total/Ch olesterol in HDL [Mass ratio] 3.7 {ratio} Normal <5 [facility] [place] Comment on above: Performed By: #### L IPR #### [address] [address] T[employer] Specialist: Ivan Perez MD Triglyceride [Mass/Vol] 94 mg/dL Normal <150 [facility] [place] Comment on above: Result Comment: Triglyceride Guidelines: <150 Desirable 150-199 Borderline 200-499 High >499 Very high Based on AHA Guidelines for fasting triglyceride, June 2012. Performed By: #### L IPR #### [address] [address] Tire Specialist: Ivan Perez MD [place] 07-11-2023 ALT [Catalytic activity/Vol] 32 U/L Normal 5-33 [facility] [place] Comment on above: Performed By: #### A ST, ALT #### [facility] [address] [place] [address] Tire Specialist: Robert Casiano MD Yesi 07-11-2023 AST [Catalytic activity/Vol] 23 U/L Normal <32 [facility] [place] Comment on above: Performed By: #### A ST, ALT #### [facility] [address] [place] [address] Tire Specialist: Robert Casiano MD TSH w/reflex to FT4on 2022 Thyroid Stim. Horm. 2.14 uIU/mL Normal 0.30-5.00 [facility] Comment on above: Performed By: #### T SHX #### [facility] [address] [place] [address] Tire Specialist: Robert Casiano MD Glucose, Fastingon Glucose [Mass/Vol] 77 mg/dL 70 - 99 mg/dL [facility] Lipid Panelon 04-18-2022 Cholesterol [Mass/Vol] 194 mg/dL NINF - 200 mg/dL [facility] Comment on above: Cholesterol Guidelines: <200 Desirable 200-240 Borderline >240 Undesirable Cholesterol in HDL [Mass/Vol] 47 mg/dL 40 - PINF mg/dL [facility] Comment on above: HDL Guidelines: <40 Undesirable 40-59 Borderline >59 Desirable Cholesterol in LDL [Mass/Vol] 129 mg/dL 0 - 130 mg/dL [facility] Comment on above: LDL Guidelines: <100 Desirable 100-129 Near to/above Desirable 130-159 Borderline >159 Undesirable Direct (measured) LDL and calculated LDL are not interchangeable tests. Cholesterol.total/Ch olesterol in HDL [Mass ratio] 4.1 {ratio} NINF - 5 [facility] Triglyceride [Mass/Vol] 89 mg/dL NINF - 150 mg/dL [facility] Comment on above: Triglyceride Guidelines: <150 Desirable 150-199 Borderline 200-499 High >499 Very high Based on AHA Guidelines for fasting triglyceride, June 2012. [facility] Glucose, FastingOrdered By: Gunnar Palacios on 04-18-2021 Glucose [Mass/Vol] 85 mg/dL 70 - 99 mg/dL [facility] [employer] Work Phone: [facility] [employer] Work Phone: Lipid PanelOrdered By: Wesley Palacios on 04-18-2021 Cholesterol [Mass/Vol] 180 mg/dL <200 [facility] [employer] Work Phone: Comment on above: Cholesterol Guidelines: <200 Desirable 200-240 Borderline >240 Undesirable Cholesterol in HDL [Mass/Vol] 45 mg/dL >40 [employer] Phone: Comment on above: HDL Guidelines: <40 Undesirable 40-59 Borderline >59 Desirable Cholesterol in LDL [Mass/Vol] 113 mg/dL 0 - 130 mg/dL [employer] Phone: Comment on above: LDL Guidelines: <100 Desirable 100-129 Near to/above Desirable 130-159 Borderline >159 Undesirable Direct (measured) LDL and calculated LDL are not interchangeable tests. Cholesterol in VLDL [Mass/Vol] NOT REPORTED 1 - 30 mg/dL [employer] Phone: Cholesterol.total/Ch olesterol in HDL [Mass ratio] 4 {ratio} <5 [employer] Phone: Triglyceride [Mass/Vol] 112 mg/dL <150 [employer] Phone: Comment on above: Triglyceride Guidelines: <150 Desirable 150-199 Borderline 200-499 High >499 Very high Based on AHA Guidelines for fasting triglyceride, June 2012. [employer] Phone: Glucose, Fastingon 9 Glucose [Mass/Vol] 106 mg/dL High 70 - 99 mg/dL [place], [place] Interpretation and review of laboratory results Abnormal [place], [place] Insulin, Totalon 07-31-2019 INR Coag (Bld) [Relative time] [place], [place] Comment on above: Fastin.6-24.9 30 min: 20-112 60 min: 29-88 90 min: 26-84 120 min: 22-79 Insulin 44.5 mU/L [place] Insulin Comment NOT REPORTED [place], [place] TSHon 07-31-2019 TSH Qn 2.26 m[IU]/L [place], [place] Encounters Encounter Date Encounter Type Care Provider Facility Start: 06-07-2024 End: 06-07-2024 ambulatory [facility] Start: 06-02-2024 End: 06-02-2024 ambulatory KESHA MERRILL Not Available Start: 06-01-2024 End: 06-01-2024 ambulatory [facility] Start: 05-28-2024 End: 05-28-2024 ambulatory [facility] Start: 05-18-2024 End: 05-18-2024 ambulatory [facility] Start: 05-05-2024 End: 05-05-2024 ambulatory ЕКАТЕРИНА JABARI Not Available Start: 05-05-2024 End: 05-05-2024 ambulatory RYAN [facility] Start: 05-05-2024 End: 05-05-2024 ambulatory [facility] Start: 04-21-2024 End: 04-21-2024 ambulatory [facility] Start: 04-07-2024 End: 04-07-2024 ambulatory ЕКАТЕРИНА R [facility] Start: 03-31-2024 End: 03-31-2024 ambulatory ЕКАТЕРИНА JABARI Not Available Start: 03-09-2024 End: 03-09-2024 ambulatory ЕКАТЕРИНА JABARI Not Available Start: 03-03-2024 End: 03-03-2024 ambulatory ЕКАТЕРИНА JABARI Not Available Start: 02-20-2024 End: 02-20-2024 ambulatory ЕКАТЕРИНА JABARI Not Available Start: 02-16-2024 End: 02-16-2024 ambulatory ЕКАТЕРИНА JABARI Not Available Start: 10-30-2023 End: 10-30-2023 ambulatory ЕКАТЕРИНА JABARI Not Available Start: 10-20-2023 End: 10-21-2023 ambulatory [facility] Start: 07-11-2023 End: 07-12-2023 ambulatory [facility] PLAZ[facility] Start: 05-26-2023 End: 05-27-2023 ambulatory [facility] Start: 04-18-2022 End: 04-18-2022 Subsequent hospital visit by physician Gunnar Palacios MD Work Phone: [facility] Comment on above: Screening for diabet es mellitus; Screening cholesterol level Start: 01-30-2022 End: 01-30-2022 Patient encounter procedure Gunnar Palacois MD Work Phone: [facility] Start: 01-30-2022 End: 01-30-2022 Subsequent hospital visit by physician Gunnar Palacios MD Work Phone: [facility] Comment on above: Women's annual routi ne gynecological examination Start: 04-18-2021 End: 04-18-2021 Patient encounter status Gunnar Palacios MD Work Phone: [facility] Start: 04-18-2021 End: 04-18-2021 Subsequent hospital visit by physician Gunnar Palacios MD Work Phone: [facility] Comment on above: Wellness examination Start: 07-31-2019 End: 07-31-2019 Subsequent hospital visit by physician Gunnar Palacios [facility] Comment on above: Irregular [...] malign ant neoplasm of cervix Pap smear [facility] Start: 10-06-2023 DTaP/Tdap/Td vaccine (7 - Td or Tdap) DTaP/Tdap/Td vaccine (7 - Td or Tdap) [facility] Start: 10-06-2023 DTaP/Tdap/Td vaccine (7 - Td) DTaP/Tdap/Td vaccine (7 - Td) [place] Start: 02-05-2023 End: 02-05-2023 Patient encounter procedure 02/05/2023 Office Visit Obstetrics and Gynecology Sarah Horn PA-C [address] [place] [address] [facility] Start: 05-16-2022 Influenza vaccination [facility] Start: 04-19-2022 End: 04-19-2022 Patient encounter procedure 04/19/2022 Office Visit Primary Care Gunnar Palacios MD [address] [place] [address] [facility] Start: 04-16-2022 Depression Screen Depression Screen [facility] Start: 05-16-2021 Influenza vaccination Flu vaccine (# 1) [facility] Work Phone: Start: 08-03-2019 End: 08-03-2019 Office Visit 08/03/2019 Office Visit Obstetrics and Gynecology [facility] [employer] Start: 05-16-2019 Influenza vaccination Flu vaccine (# 1) [place] Start: 04-02-2017 Chlamydia screen Chlamydia screen [place], [place] Start: 04-02-2017 Screening for Chlamy daniella trachomatis Chlamydia screen [facility] Start: 2017 Cervical cancer screen Cervical canc er screen [place] Start: 2017 Screening for malign ant neoplasm of cervix [facility] Start: 2014 Hepatitis C screening Hepatitis C sc reen [facility] Start: 2011 HIV screen HIV screen [place], [place] Start: 2008 COVID-19 Vaccine (1) COVID-19 Vaccin e (1) [facility] Work Phone: Start: 2007 HPV vaccine (1 - 2-d ose series) HPV vaccine (1 - 2-dose series) [facility] Start: 2007 HPV vaccine (1 - Fem rahul 2-dose series) HPV vaccine (1 - Female 2-dose series) [place], [place] Start: 2001 COVID-19 Vaccine (1) COVID-19 Vaccin e (1) [facility] Start: 1996 COVID-19 Vaccine (#1) COVID-19 Vacci ne (#1) [facility]RÉ[facility]ARTINE[facility] Start: 1996 Hepatitis C screening Hepatitis C sc reen [facility] Phone: End: 01-30-2022 Cytopathology procedure, preparation of smear, genital source [facility] Lab Routine Women's annual routine gynecological examination 1 Occurrences starting 01/30/2022 until 01/30/2022 [facility] Phone: Comment on above: 1 Occurrences starti ng 01/30/2022 until 01/30/2022 Immunizations Immunization Date Immunization Notes Care Provider Justine drake 06-15-2015 influenza virus vacc ine, whole virus [facility] 10-06-2013 hepatitis A vaccine, unspecified formulation [facility] , [place] 10-06-2013 tetanus toxoid, redu linda diphtheria toxoid, and acellular pertussis vaccine, adsorbed [facility], [place] 05-25-2013 varicella virus vaccine [facility], [place] 02-25-2013 hepatitis A vaccine, unspecified formulation [facility] , [place] 02-25-2013 meningococcal polysaccharide (groups A, C, Y and W-135) diphtheria toxoid conjugate vaccine (MCV4P) [facility], [place] 03-05-2001 diphtheria, tetanus toxoids and acellular pertussis vaccine [facility], [place] 03-05-2001 measles, mumps and r ubella virus vaccine [facility], [place] 03-05-2001 poliovirus vaccine, inactivated [facility] 07-14-1997 diphtheria, tetanus toxoids and acellular pertussis vaccine [facility], [place] 05-09-1997 measles, mumps and r ubella virus vaccine [facility], [place] 05-09-1997 varicella virus vaccine [facility] Peggy daniel [facility], [place] 1996 diphtheria, tetanus toxoids and acellular pertussis vaccine [facility], [place] 1996 hepatitis B vaccine, unspecified formulation [facility] , [place] 1996 poliovirus vaccine, inactivated [facility], [place] 1996 diphtheria, tetanus toxoids and acellular pertussis vaccine [facility], [place] 1996 haemophilus influenz ae type b vaccine, PRP-OMP conjugate [facility], [place] 1996 poliovirus vaccine, inactivated [facility], [place] 1996 diphtheria, tetanus toxoids and acellular pertussis vaccine [facility] 1996 haemophilus influenz ae type b vaccine, PRP-OMP conjugate [facility], [place] 1996 poliovirus vaccine, inactivated [facility], [place] 1996 haemophilus influenz ae type b vaccine, PRP-OMP conjugate [facility], [place] 1996 hepatitis B vaccine, unspecified formulation [facility] , [place] 1996 haemophilus influenz ae type b vaccine, PRP-OMP conjugate [facility], [place] 1996 hepatitis B vaccine, unspecified formulation [facility] , [place] Payers Date Payer Category Payer Unknown [id number] 2021 Unknown [id number] 2020 Unknown [id number] 2016 Unknown [employer] [facility] xxxxxxxxxxxx 2016-Present [phone] [address] [place] [address] xxxxxxxxxxxx [id number] 1996 Unknown [id number] 1996 Unknown [id number] 1996 Unknown [id number] 1996 Unknown [id number] 6 1996 Unknown [id number] 6 1996 Unknown [id number] 2.16.840.1.776136.3.579.2.128 6 1996 Unknown [id number] 2.16.840.1.608800.3.579.2.128 6 1996 Unknown [id number] 2.16.840.1.920949.3.579.2.128 6 1996 Unknown [id number] 2.16.840.1.594209.3.579.2.128 6 1996 Unknown [id number] 2.16.840.1.502270.3.579.2.128 6 1996 Unknown [id number] 2.16.840.1.511769.3.579.2.125 9 1996 Unknown [id number] 2.16.840.1.966373.3.579.2.125 9 1996 Unknown [id number] 2.16.840.1.256573.3.579.2.125 9 1996 Unknown [id number] 2.16.840.1.307980.3.579.2.125 9 1996 Unknown [id number] 2.16.840.1.255479.3.579.2.125 9 1996 Unknown [id number] 2.16.840.1.752245.3.579.2.125 9 1996 Unknown [id number] 2.16.840.1.483294.3.579.2.125 9 1996 Unknown [id number] 2.16.840.1.806567.3.579.2.125 9 1996 Unknown [id number] 2.16.840.1.931609.3.579.2.128 6 1996 Unknown [id number] 2.16.840.1.710623.3.579.2.128 6 1996 Unknown [id number] 2.16.840.1.694559.3.579.2.128 6 Social History Date Type Detail Facility Start: 07-16-2017 End: 07-13-2019 Tobacco smoking status NHIS Never smoker [place] Start: 07-13-2019 End: 01-30-2022 Alcohol intake Current non-drinker of alcohol (finding) [place], [place] Start: 1995 Sex Assigned At Not on file [place], [place] Start: 07-16-2017 End: 04-16-2021 Tobacco use and exposure Never used [employer] Phone: Start: 04-16-2021 History SDOH Financial 5 [employer] Phone: Start: 04-16-2021 History SDOH Food Worry 1 [employer] Phone: Start: 04-16-2021 History SDOH Transpo rt Med 2 [employer] Phone: Evaluation note Note Date & Type Note Facility Evaluation note Diagnosis Wellness examination documented in this encounter [employer] Phone: Evaluation note Note Date & Type Note Facility Evaluation note Diagnosis Women's annual routine gynecological examination documented in this encounter [employer] Phone: Evaluation note Note Date & Type Note Facility Evaluation note Diagnosis Screening for diabetes mellitus Screening cholesterol level Screening for lipoid disorders documented in this encounter ANDRÉS MARTINEZ [employer] Phone: Assessments Diagnosis Irregular menses Irregular menstrual cycle Advance Directives No Advanced Directives Records FoundDocuments on File Type Date Recorded Patient Relay Associate Expl anation Advance Directives and Living Will Power of Assistant Golf Professional Latest Code Status on File Code Status Date Activated Date Inactivated Comments Full Code 09/13/2015 8:45 PM 09/14/2015 5:05 PM Documents on File Type Date Recorded Patient Relay Associate Expl anation ACP-Advance Directive ACP-Power of Assistant Golf Professional Summary Purpose Family History No Family History Records FoundNo Family History Records FoundNo Family History Records FoundNo Family History Records Found Additional Source Comments Care Teams (unrecognized sec tion and content) Ear Nose Throat Physician Relationship Specialty Start Date End Date Gunnar Palacios MD [address] [place] [id number] PCP - General Family Medicine 09/22/15 Ear Nose Throat Physician Relationship Specialty Start Date End Date Gunnar Palacios MD [address] [place] [id number] PCP - General Family Medicine 09/22/15 INFORMATION SOURCE (unrecogn ized section and content) DATE CREATED AUTHOR 10/21/2023 Hiwot Gutierrez [facility] DATE CREATED AUTHOR AUTHOR'S ORGANIZ ATION 06/02/2024 [facility] DATE CREATED AUTHOR AUTHOR'S ORGANIZ ATION 06/05/2024 [facility] DATE CREATED AUTHOR AUTHOR'S ORGANIZ ATION 06/09/2024 [facility] [employer] FOR RECORDS PERTAINING TO [...] BE BASED ON THE PRIMARY CLINICAL RECORDS. [facility] [employer] [facility]. provides no warranty or guarantee of the accuracy or completeness of information in this document.
[2024-06-15 15:11] LABS: Beta-2 Glycoprotein I Ab, IgA <9 (0-25); Beta-2 Glycoprotein I Ab, IgG <9 (0-20); Beta-2 Glycoprotein I Ab, IgM <9 (0-32)
[2024-06-15 16:10] LABS: Anticardiolipin Ab,IgA,Qn <9 APL U/mL (0-11); Anticardiolipin Ab,IgG,Qn <9 GPL U/mL (0-14); Anticardiolipin Ab,IgM,Qn <9 MPL U/mL (0-12)
[2024-06-16 00:07] LABS: Antithrombin Activity 108 % (75-135)
== END 2024-06-14 08:39 | disposition home or self-care (01) ==
LOC: LAB 08:38
DX: Z13.1 Encounter for screening for diabetes mellitus (principal); Z86.711 Personal history of pulmonary embolism
CPT/HCPCS: 36415; 82950; 85025; 85210; 85300; 85613; 86146; 86147

== ENCOUNTER 2024-06-26 06:47 | Outpatient (OUT) | payer OTHER, SELFPAY ==
--- OUTSIDE RECORDS SUMMARY | 2024-06-26 06:49 | XMS_ITS | CCD ---
Author Organization [facility] Care Team Providers Care Molder Machine Name Role Phone Gunnar Palacios Primary Care Provider [phone] EMILY WARREN Primary Care Unavailable EMILY WARREN [...] Referring Unavailable KING, THEODORE Attending Unavailable JABARI, ЕКАТЕРНИА R Referring Unavailable JABARI, ЕКАТЕРИНА Attending Unavailable JABARI, ЕКАТЕРИНА Attending Unavailable JABARI, ЕКАТЕРИНА Attending Unavailable JABARI, ЕКАТЕРИНА Attending Unavailable JABARI, ЕКАТЕРИНА Attending Unavailable JABARI, ЕКАТЕРИНА Attending Unavailable KESHA MERRILL Attending Unavailable KING, THEODORE Referring Unavailable KING, THEODORE Referring Unavailable MOUSSA, YADI NADIM Referring Unavailable JABARI, ЕКАТЕРИНА R Referring Unavailable Allergies Allergy Classification Reported Allergen(s) Allergy Type Date of Onset Reaction(s) Facility Cephalosporins (antibiotic) (1 source) cefprozil Drug Allergy 05-10-2013 [facility] (6 sources) cefprozil; Translations: [CEFPROZIL] Drug Allergy 05-10-2013 [facility]- [place], [place] Medications Current Medications Medication [...] Hemorrhage during ; abruptio placenta; placenta previa (2 sources) Other antepartum hemorrhage, second trimester; Translations: [Other [...] trimester] Onset: 05-28-2024 Episodic Other complications of (2 sources) Circumvallate placenta, second trimester; Translations: [Circumvallate placenta, second trimester] Onset: 05-05-2024 Episodic Other complications of (2 sources) Maternal care for other known or suspected [...] Polyhydramnios and other problems of amniotic cavity (2 sources) Other specified disorders of amniotic fluid and [...] width (RBC) [Ratio] 13.3 % Normal 11.8-14.4 [facility] Comment on above: Performed By: #### C P, CBC #### [facility] [address] [place] [address] [place] [address] System Designer: Robert Casiano MD #### GLYHGB #### [address] [id number] System Designer: Ivan Perez MD Hematocrit (Bld) [Volume fraction] 42.6 % Normal 36.3-47.1 [facility] Comment on above: Performed By: #### C P, CBC #### [facility] [address] [place] [address] [place] [address] System Designer: Robert Casiano MD #### GLYHGB #### [address] [id number] System Designer: Ivan Perez MD Hemoglobin (Bld) [Mass/Vol] 13.6 g/dL Normal 11.9-15.1 [facility] Comment on above: Performed By: #### C P, CBC #### [address] [place] [address] System Designer: Robert Casiano MD #### GLYHGB #### [address] [place], [place] [id number] System Designer: Ivan Perez MD MCH (RBC) [Entitic mass] 28.3 pg Normal 25.2-33.5 [facility] Comment on above: Performed By: #### C P, CBC #### [facility] [address] [place] [address] [place] [address] System Designer: Robert Casiano MD #### GLYHGB #### [address] [place], [place] [id number] System Designer: Ivan Perez MD MCHC (RBC) [Mass/Vol] 31.9 g/dL Normal 28.4-34.8 [facility] Comment on above: Performed By: #### C P, CBC #### [facility] [address] [place], [place] [id number] System Designer: Robert Casiano MD #### GLYHGB #### [address] [address] System Designer: Ivan Perez MD MCV (RBC) [Entitic vol] 88.6 fL Normal 82.6-102.9 [facility] Comment on above: Performed By: #### C P, CBC #### [facility] [address] [place] [id number] System Designer: Robert Casiano MD #### GLYHGB #### [address] [id number] System Designer: Ivan Perez MD NRBC Automated 0.0 per 100 WBC Normal 0.0 [facility] Comment on above: Performed By: #### C P, CBC #### [facility] [address] [place] [id number] System Designer: Robert Casiano MD #### GLYHGB #### [address] [address] System Designer: Ivan Perez MD Platelet mean volume (Bld) [Entitic vol] 9.1 fL Normal 8.1-13.5 [facility] Comment on above: Performed By: #### C P, CBC #### [facility] [address] [place], [place] [id number] System Designer: Robert Casiano MD #### GLYHGB #### [address] [address] System Designer: Ivan Perez MD Platelets (Bld) [#/Vol] 322 10*3/uL Normal 138-453 [facility] Comment on above: Performed By: #### C P, CBC #### [facility] [address] [place], [place] [id number] System Designer: Robert Casiano MD #### GLYHGB #### [address] [address] [place], [place] 0029708 System Designer: Ivan Perez MD RBC (Bld) [#/Vol] 4.81 10*6/uL Normal 3.95-5.11 [facility] Comment on above: Performed By: #### C P, CBC #### [facility] [address] [place] [address] System Designer: Robert Casiano MD #### GLYHGB #### [address] [place], [place] [id number] System Designer: Ivan Perez MD WBC (Bld) [#/Vol] 7.9 10*3/uL Normal 3.5-11.3 [facility] Comment on above: Performed By: #### C P, CBC #### [facility] [address] [place] [address] System Designer: Robert Casiano MD #### GLYHGB #### [address] [place], [place] [id number] System Designer: Ivan Perez MD Comp Metabolic Profon 2023 Albumin [Mass/Vol] 4.3 g/dL Normal 3.5-5.2 [facility] Comment on above: Performed By: #### C P, CBC #### [facility] [address] [place] [address] System Designer: Robert Casiano MD #### GLYHGB #### [address] [place], [place] 7212508 System Designer: Ivan Perez MD Albumin/Glob Ratio 1.4 Normal 1.0-2.5 [facility] Comment on above: Performed By: #### C P, CBC #### [facility] [address] [place], [place] 1208683 System Designer: Robert Casiano MD #### GLYHGB #### [facility] [address] [place] [address] System Designer: Ivan Perez MD Alkaline Phos 49 U/L Normal 35-104 [facility] Comment on above: Performed By: #### C P, CBC #### [facility] [address] [place], [place] 0551683 System Designer: Robert Casiano MD #### GLYHGB #### [address] [place] [address] System Designer: Ivan Perez MD ALT [Catalytic activity/Vol] 29 U/L Normal 5-33 [facility] Comment on above: Performed By: #### C P, CBC #### [facility] [address] [place], [place] 0360083 System Designer: Robert Casiano MD #### GLYHGB #### [facility] [address] [place] [address] System Designer: Ivan Perez MD Anion gap [Moles/Vol] 12 mmol/L Normal 9-17 [facility] Comment on above: Performed By: #### C P, CBC #### [facility] [address] [place] [address] System Designer: Robert Casiano MD #### GLYHGB #### [facility] [address] [place] [address] System Designer: Ivan Perez MD AST [Catalytic activity/Vol] 25 U/L Normal <32 [facility] Comment on above: Performed By: #### C P, CBC #### [facility] [address] [place] [address] System Designer: Robert Casiano MD #### GLYHGB #### [facility] [address] [place] [address] System Designer: Ivan Perez MD Bilirubin [Mass/Vol] 0.2 mg/dL Low 0.3-1.2 [facility] Comment on above: Performed By: #### C P, CBC #### [facility] [address] [place] [address] Dr[address] [place], [place] 4921783 System Designer: Robert Casiano MD #### GLYHGB #### [address] [id number] System Designer: Ivan Perez MD BUN/CRE Ratio 28 High 9-20 [facility] Comment on above: Performed By: #### C P, CBC #### [address] [place] 0285534 ( System Designer: Robert Casiano MD #### GLYHGB #### [address] [place] [address] System Designer: Ivan Perez MD Calcium [Mass/Vol] 9.1 mg/dL Normal 8.6-10.4 [facility] Comment on above: Performed By: #### C P, CBC #### [address] [place], [place] 8487783 System Designer: Robert Casiano MD #### GLYHGB #### [address] [address] System Designer: Ivan Perez MD Chloride [Moles/Vol] 108 mmol/L High 98-107 [facility] Comment on above: Performed By: #### C P, CBC #### [address] [place], [place] 1702583 System Designer: Robert Casiano MD #### GLYHGB #### [address] [place] [address] System Designer: Ivan Perez MD CO2 [Moles/Vol] 24 mmol/L Normal 20-31 [facility] Comment on above: Performed By: #### C P, CBC #### [facility] [address] [place], [place] 5251883 System Designer: Robert Casiano MD #### GLYHGB #### [facility] [address] [place] [address] System Designer: Ivan Perez MD Creatinine [Mass/Vol] 0.6 mg/dL Normal 0.5-0.9 [facility] Comment on above: Performed By: #### C P, CBC #### [facility] [address] [place] [address] [place], [place] [id number] System Designer: Robert Casiano MD #### GLYHGB #### [address] [id number] System Designer: Ivan Perez MD GFR/1.73 sq M.predicted among non-blacks MDRD (S/P/Bld) [Vol rate/Area] mL/min/{1.73_m2} Normal >60 [facility] Comment on above: Result Comment: These [...] Performed By: #### C P, CBC #### [facility] [address] [place], [place] 0035583 System Designer: Robert Casiano MD #### GLYHGB #### [facility] [address] [place], [place] 0129608 System Designer: Ivan Perez MD Glucose [Mass/Vol] 90 mg/dL Normal 70-99 [facility] Comment on above: Performed By: #### C P, CBC #### [facility] [address] [place] [address] System Designer: Robert Casiano MD #### GLYHGB #### [address] [id number] System Designer: Ivan Perez MD Potassium [Moles/Vol] 4.2 mmol/L Normal 3.7-5.3 [facility] Comment on above: Performed By: #### C P, CBC #### [facility] [address] [place] [address] System Designer: Robert Casiano MD #### GLYHGB #### [address] [id number] System Designer: Ivan Perez MD Protein [Mass/Vol] 7.3 g/dL Normal 6.4-8.3 [facility] Comment on above: Performed By: #### C P, CBC #### [facility] [address] [place] [address] [address] [place], [place] 7740383 System Designer: Robert Casiano MD #### GLYHGB #### [address] [address] System Designer: Ivan Perez MD Sodium [Moles/Vol] 144 mmol/L Normal 135-144 [facility] Comment on above: Performed By: #### C P, CBC #### [facility] [address] [place], [place] 2649783 System Designer: Robert Casiano MD #### GLYHGB #### [address] [address] System Designer: Ivan Perez MD Urea nitrogen [Mass/Vol] 17 mg/dL Normal 6-20 [facility] Comment on above: Performed By: #### C P, CBC #### [facility] [address] [place], [place] 9498983 System Designer: Robert Casiano MD #### GLYHGB #### [address] [address] System Designer: Ivan Perez MD Hemoglobin A1Con 10-20-2023 Glucose [Mass/Vol] 105 mg/dL Normal [facility] Comment on above: Result Comment: The ADA and AACC recommend providing the estimated average glucose result to permit better patient understanding of their HBA1c result. Performed By: #### C P, CBC #### [facility] [address] [place], [place] 4161483 System Designer: Robert Casiano MD #### GLYHGB #### [address] [address] System Designer: Ivan Perez MD HbA1c (Bld) [Mass fraction] 5.3 % Normal 4.0-6.0 [facility] Comment on above: Performed By: #### C P, CBC #### [facility] [address] [place], [place] 2621083 System Designer: Robert Casiano MD #### GLYHGB #### [address] [address] System Designer: Ivan Perez MD Lipid Profileon 10-20-2023 Cholesterol [Mass/Vol] 163 mg/dL Normal <200 [facility] Comment on above: Result Comment: Cholesterol Guidelines: <200 Desirable 200-240 Borderline >240 Undesirable Performed By: #### L IPR #### [address] [address] System Designer: Ivan Perez MD Cholesterol in HDL [Mass/Vol] 44 mg/dL Normal >40 [facility] Comment on above: Result Comment: HDL Guidelines: <40 Undesirable 40-59 Borderline >59 Desirable Performed By: #### L IPR #### [facility] [address] [place] [address] System Designer: Ivan Perez MD Cholesterol in LDL [Mass/Vol] 100 mg/dL Normal 0-130 [facility] Comment on above: Result Comment: LDL Guidelines: <100 Desirable 100-129 Near to/above Desirable 130-159 Borderline >159 Undesirable Direct (measured) LDL and calculated LDL are not interchangeable tests. Performed By: #### L IPR #### [facility] [address] [place] [address] System Designer: Ivan Perez MD Cholesterol.total/Ch olesterol in HDL [Mass ratio] 3.7 {ratio} Normal <5 [facility] Comment on above: Performed By: #### L IPR #### [facility] [employer] [address] [place] [address] System Designer: Ivan Perez MD Triglyceride [Mass/Vol] 94 mg/dL Normal <150 [facility] Comment on above: Result Comment: Triglyceride Guidelines: <150 Desirable 150-199 Borderline 200-499 High >499 Very high Based on AHA Guidelines for fasting triglyceride, June 2012. Performed By: #### L IPR #### [facility] [employer] [address] [place] [address] System Designer: Ivan Perez MD [place] 07-11-2023 ALT [Catalytic activity/Vol] 32 U/L Normal 5-33 [facility] Comment on above: Performed By: #### A ST, ALT #### [facility] [address] [place] [address] System Designer: Robert Casiano MD [place] 07-11-2023 AST [Catalytic activity/Vol] 23 U/L Normal <32 [facility] Comment on above: Performed By: #### A ST, ALT #### [facility] [address] [place] [address] System Designer: Robert Casiano MD TSH w/reflex to FT4on 2022 Thyroid Stim. Horm. 2.14 uIU/mL Normal 0.30-5.00 [facility] Comment on above: Performed By: #### T SHX #### [facility] [address] [place] [address] System Designer: Robert Casiano MD Glucose, Fastingon Glucose [Mass/Vol] 77 mg/dL 70 - 99 mg/dL [facility] Lipid Panelon 04-18-2022 Cholesterol [Mass/Vol] 194 mg/dL NINF - 200 mg/dL [facility] Comment on above: Cholesterol Guidelines: <200 Desirable 200-240 Borderline >240 Undesirable Cholesterol in HDL [Mass/Vol] 47 mg/dL 40 - PINF mg/dL [facility] Comment on above: HDL Guidelines: <40 Undesirable 40-59 Borderline >59 Desirable Cholesterol in LDL [Mass/Vol] 129 mg/dL 0 - 130 mg/dL [facility] Comment on above: LDL Guidelines: <100 Desirable 100-129 Near to/above Desirable 130-159 Borderline >159 Undesirable Direct (measured) LDL and calculated LDL are not interchangeable tests. Cholesterol.total/Ch olesterol in HDL [Mass ratio] 4.1 {ratio} NINF - 5 [facility] Triglyceride [Mass/Vol] 89 mg/dL NINF - 150 mg/dL [facility] Comment on above: Triglyceride Guidelines: <150 Desirable 150-199 Borderline 200-499 High >499 Very high Based on AHA Guidelines for fasting triglyceride, June 2012. [facility] Glucose, FastingOrdered By: Gunnar Palacios on 04-18-2021 Glucose [Mass/Vol] 85 mg/dL 70 - 99 mg/dL [facility] [employer] Work Phone: [facility] [employer] Work Phone: Lipid PanelOrdered By: Wesley Palacios on 04-18-2021 Cholesterol [Mass/Vol] 180 mg/dL <200 [facility] [employer] Work Phone: Comment on above: Cholesterol Guidelines: <200 Desirable 200-240 Borderline >240 Undesirable Cholesterol in HDL [Mass/Vol] 45 mg/dL >40 [facility] Phone: Comment on above: HDL Guidelines: <40 Undesirable 40-59 Borderline >59 Desirable Cholesterol in LDL [Mass/Vol] 113 mg/dL 0 - 130 mg/dL [facility] Phone: Comment on above: LDL Guidelines: <100 Desirable 100-129 Near to/above Desirable 130-159 Borderline >159 Undesirable Direct (measured) LDL and calculated LDL are not interchangeable tests. Cholesterol in VLDL [Mass/Vol] NOT REPORTED 1 - 30 mg/dL [facility] Phone: Cholesterol.total/Ch olesterol in HDL [Mass ratio] 4 {ratio} <5 [facility] Phone: Triglyceride [Mass/Vol] 112 mg/dL <150 [facility] Phone: Comment on above: Triglyceride Guidelines: <150 Desirable 150-199 Borderline 200-499 High >499 Very high Based on AHA Guidelines for fasting triglyceride, June 2012. [facility] Phone: Glucose, Fastingon 9 Glucose [Mass/Vol] 106 mg/dL High 70 - 99 mg/dL [place], [place] Interpretation and review of laboratory results Abnormal [place] Insulin, Totalon 07-31-2019 INR Coag (Bld) [Relative time] [place] Comment on above: Fastin.6-24.9 30 min: 20-112 60 min: 29-88 90 min: 26-84 120 min: 22-79 Insulin 44.5 mU/L [place] Insulin Comment NOT REPORTED [place] TSHon 07-31-2019 TSH Qn 2.26 m[IU]/L [place] Encounters Encounter Date Encounter Type Care Provider Facility Start: 06-23-2024 End: 06-23-2024 [facility]: 06-07-2024 End: 06-07-2024 ambulatory [facility] Start: 06-02-2024 End: 06-02-2024 ambulatory KESHA MERRILL Not Available Start: 06-01-2024 End: 06-01-2024 ambulatory [facility] Start: 05-28-2024 End: 05-28-2024 ambulatory [facility] Start: 05-18-2024 End: 05-18-2024 ambulatory [facility] Start: 05-05-2024 End: 05-05-2024 ambulatory ЕКАТЕРИНА JABARI Not Available Start: 05-05-2024 End: 05-05-2024 ambulatory [facility] Start: 05-05-2024 End: 05-05-2024 ambulatory [facility] Start: 04-21-2024 End: 04-21-2024 ambulatory ЕКАТЕРИНА [facility] Start: 04-07-2024 End: 04-07-2024 ambulatory ЕКАТЕРИНА R [facility] Start: 03-31-2024 End: 03-31-2024 ambulatory ЕКАТЕРИНА JABARI Not Available Start: 03-09-2024 End: 03-09-2024 ambulatory ЕКАТЕРИНА JABARI Not Available Start: 03-03-2024 End: 03-03-2024 ambulatory ЕКАТЕРИНА JABARI Not Available Start: 02-20-2024 End: 02-20-2024 ambulatory ЕКАТЕРИНА JABARI Not Available Start: 02-16-2024 End: 02-16-2024 ambulatory ЕКАТЕРИНА JABARI Not Available Start: 10-30-2023 End: 10-30-2023 ambulatory ЕКАТЕРИНА JABARI Not Available Start: 10-20-2023 End: 10-21-2023 [facility]ulatory [facility] Start: 07-11-2023 End: 07-12-2023 ambulatory [facility] Start: 05-26-2023 End: 05-27-2023 ambulatory [facility] Start: 04-18-2022 End: 04-18-2022 Subsequent hospital visit by physician Gunnar Palacios MD Work Phone: [facility] Comment on above: Screening for diabet es mellitus; Screening cholesterol level Start: 01-30-2022 End: 01-30-2022 Patient encounter procedure Gunnar Palacios MD Work Phone: [facility] Start: 01-30-2022 End: 01-30-2022 Subsequent hospital visit by physician Gunnar Palacios MD Work Phone: [facility] Comment on above: Women's annual routi ne gynecological examination Start: 04-18-2021 End: 04-18-2021 Patient encounter status Gunnar Palacios MD Work Phone: [facility] Start: 04-18-2021 End: 04-18-2021 Subsequent hospital visit by physician Gunnar Palacios MD Work Phone: [facility] Comment on above: Wellness examination Start: 07-31-2019 End: 07-31-2019 Subsequent hospital visit by physician Gunnar Palacios [facility] Comment on above: Irregular menses [...] ant neoplasm of cervix [facility] Start: 10-06-2023 DTaP/Tdap/Td vaccine (7 - Td or Tdap) DTaP/Tdap/Td vaccine (7 - Td or Tdap) [facility] Start: 10-06-2023 DTaP/Tdap/Td vaccine (7 - Td) DTaP/Tdap/Td vaccine (7 - Td) [place] Start: 02-05-2023 End: 02-05-2023 Patient encounter procedure 02/05/2023 Office Visit Obstetrics and Gynecology Sarah Horn PA-C [address] [place] [address] [facility] Start: 05-16-2022 Influenza vaccination [facility] Start: 04-19-2022 End: 04-19-2022 Patient encounter procedure 04/19/2022 Office Visit Primary Care Gunnar Palacios MD [address] [place] [address] [facility] Start: 04-16-2022 Depression Screen Depression Screen [facility] Start: 05-16-2021 Influenza vaccination Flu vaccine (# 1) [facility] Work Phone: Start: 08-03-2019 End: 08-03-2019 Office Visit 08/03/2019 Office Visit Obstetrics and Gynecology [facility] [employer] Start: 05-16-2019 Influenza vaccination Flu vaccine (# 1) [place] Start: 04-02-2017 Chlamydia screen Chlamydia screen [place], [place] Start: 04-02-2017 Screening for Chlamy daniella trachomatis Chlamydia screen [facility] Start: 2017 Cervical cancer screen Cervical canc er [place] Start: 2017 Screening for malign ant neoplasm of cervix [facility] Start: 2014 Hepatitis C screening Hepatitis C sc reen [facility] Start: 2011 HIV screen HIV screen [place], [place] Start: 2008 COVID-19 Vaccine (1) COVID-19 Vaccin e (1) [facility] [employer] Phone: Start: 2007 HPV vaccine (1 - 2-d ose series) HPV vaccine (1 - 2-dose series) [facility] Start: 2007 HPV vaccine (1 - Fem rahul 2-dose series) HPV vaccine (1 - Female 2-dose series) [place] Start: 2001 COVID-19 Vaccine (1) COVID-19 Vaccin e (1) [facility] Start: 1996 COVID-19 Vaccine (#1) COVID-19 Vacci ne (#1) [facility] Start: 1996 Hepatitis C screening Hepatitis C sc reen [facility] Phone: End: 01-30-2022 Cytopathology procedure, preparation of smear, genital source PAP SME[facility] Lab Routine Women's annual routine gynecological examination 1 Occurrences starting 01/30/2022 until 01/30/2022 [facility] [employer] Phone: Comment on above: 1 Occurrences starti ng 01/30/2022 until 01/30/2022 Immunizations Immunization Date Immunization Notes Care Provider Justine drake 06-15-2015 influenza virus vacc ine, whole virus [facility] 10-06-2013 hepatitis A vaccine, unspecified formulation [facility] [place] 10-06-2013 tetanus toxoid, redu linda diphtheria toxoid, and acellular pertussis vaccine, adsorbed [facility], [place] 05-25-2013 varicella virus vaccine [facility] Peggy daniel [facility] 02-25-2013 hepatitis A vaccine, unspecified formulation [facility] [place] 02-25-2013 meningococcal polysaccharide (groups A, C, Y and W-135) diphtheria toxoid conjugate vaccine (MCV4P) [place], [place] 03-05-2001 diphtheria, tetanus toxoids and acellular pertussis vaccine [facility], [place] 03-05-2001 measles, mumps and r ubella virus vaccine [facility] 03-05-2001 poliovirus vaccine, inactivated [facility] 07-14-1997 diphtheria, tetanus toxoids and acellular pertussis vaccine [facility] 05-09-1997 measles, mumps and r ubella virus vaccine [facility] 05-09-1997 varicella virus vaccine [facility], [place] 1996 diphtheria, tetanus toxoids and acellular pertussis vaccine [facility], [place] 1996 hepatitis B vaccine, unspecified formulation [facility] [place] 1996 poliovirus vaccine, inactivated [facility], [place] 1996 diphtheria, tetanus toxoids and acellular pertussis vaccine [facility], [place] 1996 haemophilus influenz ae type b vaccine, PRP-OMP conjugate [facility], [place] 1996 poliovirus vaccine, inactivated [facility], [place] 1996 diphtheria, tetanus toxoids and acellular pertussis vaccine [facility] 1996 haemophilus influenz ae type b vaccine, PRP-OMP conjugate [facility] 1996 poliovirus vaccine, inactivated [facility] 1996 haemophilus influenz ae type b vaccine, PRP-OMP conjugate [facility] 1996 hepatitis B vaccine, unspecified formulation [facility] [place] 1996 haemophilus influenz ae type b vaccine, PRP-OMP conjugate [facility] 1996 hepatitis B vaccine, unspecified formulation [facility] , [place] Payers Date Payer Category Payer Unknown [id number] 2021 Unknown [id number] 2020 Unknown [id number] .[id number] 2016 Unknown [employer] [facility] xxxxxxxxxxxx 2016-Present [phone] [address] [place] [address] [id number] [id number].3 .[id number] 1996 Unknown [id number] 2.16.840.1.269933.3.579.2.173 1996 Unknown [id number] 2.16.840.1.394417.3.579.2.173 1996 Unknown [id number] 2.16.840.1.933216.3.579.2.173 1996 Unknown [id number] 2.16.840.1.135175.3.579.2.128 6 1996 Unknown [id number] 2.16.840.1.888325.3.579.2.128 6 1996 Unknown [id number] 2.16.840.1.445448.3.579.2.128 6 1996 Unknown [id number] 2.16.840.1.900320.3.579.2.128 6 1996 Unknown [id number] 2.16.840.1.450527.3.579.2.128 6 1996 Unknown [id number] 2.16.840.1.426689.3.579.2.128 6 1996 Unknown [id number] 2.16.840.1.114957.3.579.2.128 6 1996 Unknown [id number] 2.16.840.1.606134.3.579.2.125 9 1996 Unknown [id number] 2.16.840.1.857334.3.579.2.125 9 1996 Unknown [id number] 2.16.840.1.162884.3.579.2.125 9 1996 Unknown [id number] 2.16.840.1.780337.3.579.2.125 9 1996 Unknown [id number] 2.16.840.1.512971.3.579.2.125 9 1996 Unknown [id number] 2.16.840.1.905693.3.579.2.125 9 1996 Unknown [id number] 2.16.840.1.438943.3.579.2.125 9 1996 Unknown [id number] 2.16.840.1.872234.3.579.2.125 9 1996 Unknown [id number] 2.16.840.1.654385.3.579.2.128 6 1996 Unknown [id number] 2.16.840.1.767508.3.579.2.128 6 1996 Unknown [id number] 2.16.840.1.740649.3.579.2.128 6 1996 Unknown [id number] 2.16.840.1.311376.3.579.2.128 6 Social History Date Type Detail Facility Start: 07-16-2017 End: 07-13-2019 Tobacco smoking status NHIS Never smoker [place] Start: 07-13-2019 End: 01-30-2022 Alcohol intake Current non-drinker of alcohol (finding) [place] Start: 1995 Sex Assigned At Not on file [facility] [place] Start: 07-16-2017 End: 04-16-2021 Tobacco use and exposure Never used [facility] Phone: Start: 04-16-2021 History SDOH Financial 5 [facility]: Start: 04-16-2021 History SDOH Food Worry 1 [facility]: Start: 04-16-2021 History SDOH Transpo rt Med 2 [facility]: Evaluation note Note Date & Type Note Facility Evaluation note Diagnosis Wellness examination documented in this encounter [facility]: Evaluation note Note Date & Type Note Facility Evaluation note Diagnosis Women's annual routine gynecological examination documented in this encounter [facility]: Evaluation note Note Date & Type Note Facility Evaluation note Diagnosis Screening for diabetes mellitus Screening cholesterol level Screening for lipoid disorders documented in this encounter ANDRÉS MARTINEZ [email or web address] Phone: Assessments Diagnosis Irregular menses Irregular menstrual cycle Advance Directives No Advanced Directives Records FoundDocuments on File Type Date Recorded 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 Advance Directives and Living Will Power of [employer] Lab[employer] Latest Code Status on File Code Status Date Activated Date Inactivated Comments Full Code 09/13/2015 8:45 PM 09/14/2015 5:05 PM Documents on File Type Date Recorded 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 ACP-Advance Directive ACP-Power of [employer] Lab[employer] Summary Purpose Family History No Family History Records FoundNo Family History Records FoundNo Family History Records FoundNo Family History Records FoundNo Family History Records Found Additional Source Comments Care Teams (unrecognized sec tion and content) Molder 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 Relationship Specialty Start Date End Date Gunnar Palacios MD [address] [place], [place] [phone] PCP - General Family Medicine 09/22/15 Molder Machine Relationship Specialty Start Date End Date Gunnar Palacios MD [address] [place] [id number] PCP - General Family Medicine 09/22/15 INFORMATION SOURCE (unrecogn ized section and content) DATE CREATED AUTHOR 10/21/2023 Hiwot Gutierrez [facility] DATE CREATED AUTHOR AUTHOR'S ORGANIZ ATION 06/02/2024 [facility] DATE CREATED AUTHOR AUTHOR'S ORGANIZ ATION 06/05/2024 [facility] EPIC DATE CREATED AUTHOR AUTHOR'S ORGANIZ ATION 06/09/2024 [facility] DATE CREATED AUTHOR AUTHOR'S ALMITA MARQUEZ 06/25/2024 [facility] FOR RECORDS PERTAINING TO PATIENTS WHO ARE [...] BE BASED ON THE PRIMARY CLINICAL RECORDS. [facility] [employer] [facility]. provides no warranty or guarantee of the accuracy or completeness of information in this document.
[2024-06-26 07:16] LABS: Glucose Fasting 93 mg/dL (<95)
[2024-06-26 08:23] LABS: Glucose 1 Hour 131 mg/dL (<180)
[2024-06-26 09:42] LABS: Glucose 2 Hour 158 mg/dL (<155)
[2024-06-26 10:37] LABS: Glucose 3 Hour 109 mg/dL (<140)
== END 2024-06-26 06:48 | disposition home or self-care (01) ==
LOC: LAB 06:47
PROVIDERS: Visit Provider Obstetrics & Gynecology
DX: R73.09 Other abnormal glucose (principal)
CPT/HCPCS: 36415; 82951; 82952

== ENCOUNTER 2024-07-26 07:07 | Outpatient (OUT) | payer OTHER, SELFPAY ==
--- OUTSIDE RECORDS SUMMARY | 2024-07-26 07:11 | XMS_ITS | CCD ---
Author Organization [facility] Care Team Providers Care Supervisor Properties Name Role Phone Gunnar Palacios Primary Care Provider [phone] EMILY WARREN Primary Care Unavailable EMILY WARREN Referring Unavailable EMILY WARREN Referring Unavailable EMILY WARREN Primary Care Unavailable EMILY WARREN Referring Unavailable EMILY WARREN Primary Care Unavailable KING, THEODORE Referring Unavailable KING, THEODORE Referring Unavailable MOUSSA, HIND NADIM Referring Unavailable Unavailable Primary Care Provider Unavailabl e NOLAN, ЕКАТЕРИНА Attending Unavailable NOLAN, ЕКАТЕРИНА Attending Unavailable NOLAN, ЕКАТЕРИНА Attending Unavailable NOLAN, ЕКАТЕРИНА Attending Unavailable NOLAN, ЕКАТЕРИНА Attending Unavailable NOLAN, ЕКАТЕРИНА Attending Unavailable DESIRAE, DEBORAH Attending Unavailable DESIRAE, DEBORAH Attending Unavailable DESIRAE, DEBORAH Attending Unavailable Unavailable Primary Care Provider Unavailabl e NOLAN, ЕКАТЕРИНА R Referring Unavailable KING, THEODORE Attending Unavailable SUNITA RAPP Referring Unavail able NOLAN, ЕКАТЕРИНА R Referring Unavailable CATHY, RYAN Attending Unavailable NOLAN, ЕКАТЕРИНА R Referring Unavailable CATHY, RYAN Attending Unavailable NOLAN, ЕКАТЕРИНА R Referring Unavailable NOLAN, ЕКАТЕРИНА R Referring Unavailable KING, THEODORE Attending Unavailable NOLAN, ЕКАТЕРИНА R Referring Unavailable KING, THEODORE Attending Unavailable NOLAN, ЕКАТЕРИНА R Referring Unavailable NOLAN, ЕКАТЕРИНА R Referring Unavailable NOLAN, ЕКАТЕРИНА R Referring Unavailable NOLAN, ЕКАТЕРИНА R Referring Unavailable Allergies Allergy Classification Reported Allergen(s) Allergy Type Date of Onset Reaction(s) Facility Cephalosporins (antibiotic) (1 source) cefprozil Drug Allergy 3 [facility] (7 sources) cefprozil; Translations: [CEFPROZIL] Drug Allergy 3 [place] (7 sources) Cefprozil Propensity to adverse reactions 6 [facility] Medications Current Medications Medication Drug Class(es) Dates Sig (Normalized) Sig (Original) 0.4 ml enoxaparin sodium 100 mg/ml prefilled syringe (8 sources) Low Molecular Weight Heparin Start: 04-21-2024 inject 0.4 mL by subcutaneous injection in the morning enoxaparin (LOVENOX) 40 mg/0.4 mL syringe Indications: Pulmonary embolism affecting in first trimester Inject 0.4 mL (40 mg total) under the skin in the morning. 12 mL 6 04/21/2024 Active inject 40 mg by subc utaneous injection once daily Enoxaparin Sodium 40 MG/0.4ML solution prefilled syringe Inject 40 mg under the skin Daily Active metFORMIN hydrochloride 500 mg oral tablet (3 [...] (with breakfast) 90 tablet 11 09/07/2019 Active 25/iron fum/folic/dha (-1 ORAL) (1 source) 25/iron fum/folic/dha (-1 ORAL) Take by mouth. Active Tprbcjxm-Pen-Lr-FA ( 1 + IRON PO) (7 sources) Fxwnilyd-Cpi-Bx-FA ( 1 + IRON PO) Take by mouth Active sertraline 25 mg oral tablet (8 sources) Serotonin Reuptake Inhibitor Start: 4 take 1 tablet by mouth in the morning sertraline (Zoloft) 25 MG tablet Take 1 tablet by mouth in the morning. 10/28/2023 Active Problems Active Problems Problem Classification Problem Date Documented Date Episodic/Chronic Anxiety disorders (4 sources) Anxiety; Translations: [Anxiety disorder, unspecified] Onset: 04-28-2015 04-28-2015 Chronic Diabetes mellitus without complication (4 sources) Hyperglycemia, unspecified; Translations: [Prediabetes] Onset: 05-26-2023 Episodic Diabetes or abnormal glucose tolerance complicating ; childbirth; or the puerperium (1 source) Impaired glucose tolerance in ; Translations: [Abnormal glucose complicating ] 07-16-2024 Episodic Disorders of lipid metabolism (3 sources) Mixed hyperlipidemia; Translations: [Mixed hyperlipidemia] Onset: 05-26-2023 Chronic Menstrual disorders (5 sources) Irregular periods; Translations: [Dysmenorrhea] Onset: 09-21-2015 09-21-2015 Chronic Other complications of (2 sources) Obesity complicating , unspecified trimester; Translations: [Obesity complicating , unspecified trimester] Onset: 04-07-2024 Chronic Other complications of (3 sources) Poor growth affecting management; Translations: [Maternal care for other known or suspected poor growth, first trimester, not applicable or unspecified] Onset: 05-05-2024 07-12-2024 Episodic Other complications of (1 source) Placenta circumvallata; Translations: [Circumvallate placenta, second trimester] Onset: 05-05-2024 05-05-2024 Episodic Other complications of (1 source) Malformation of [...] , first trimester] Onset: 04-21-2024 Episodic Other endocrine disorders (3 sources) Polycystic ovarian syndrome; Translations: [Polycystic ovarian syndrome] Onset: 03-23-2023 Chronic Other liver diseases (1 source) Abnormal levels of other serum enzymes; Translations: [Abnormal levels of other serum enzymes] Onset: 10-20-2023 Episodic Other nutritional; endocrine; and metabolic disorders (4 sources) Morbid obesity; Translations: [Morbid (severe) obesity due to excess calories] Onset: 09-13-2015 09-13-2015 Chronic Other and delivery including normal (4 sources) Second trimester ; Translations: [Encounter for supervision of normal , unspecified, second trimester] 06-30-2024 Episodic Pulmonary heart disease (1 source) 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; Translations: [Embolism, pulmonary with infarction] Onset: 09-21-2015 09-21-2015 Residual codes; unclassified (2 sources) Gestation period, 28 weeks; Translations: [28 weeks gestation of ] 06-30-2024 Episodic Residual codes; unclassified (3 sources) Gestation period, 30 weeks; Translations: [30 weeks gestation of ] 07-12-2024 Episodic Unclassified (7 sources) OB Reminders Onset: 02-28-2024 02-28-2024 Unclassified (1 source) Hx PE Onset: 04-07-2024 Past or Other Problems Problem Classification Problem Date Documented Da te Episodic/Chronic Deficiency and other anemia (4 sources) Iron deficiency anemia; Translations: [Iron deficiency anemia, unspecified] Onset: 09-14-2015 09-14-2015 Episodic Hemorrhage during ; abruptio placenta; placenta previa (2 sources) Other antepartum hemorrhage, second trimester; Translations: [Other antepartum hemorrhage, second trimester] Onset: 04-21-2024 Episodic Other complications of (1 source) Maternal care for other known or suspected poor growth, unspecified trimester, not applicable or unspecified; Translations: [Maternal care for other known or suspected poor growth, unspecified trimester, not applicable or unspecified] Onset: 04-07-2024 Episodic Other screening for suspected conditions (not mental disorders or infectious disease) (4 sources) Patient encounter status; Translations: [Encounter for screening for diabetes mellitus] Onset: 07-11-2023 Episodic Phlebitis; thrombophlebitis and thromboembolism (4 sources) Thromboembolism of vein; Translations: [Acute embolism and thrombosis of unspecified vein] Onset: 03-21-2016 03-21-2016 Episodic Polyhydramnios and other problems of amniotic cavity (3 sources) Subchorionic hematoma; Translations: [Other specified disorders of amniotic fluid and membranes, second trimester, not applicable or unspecified] Onset: 04-21-2024 04-21-2024 Episodic Pulmonary heart disease (10 sources) Acute pulmonary embolism; Translations: [Other pulmonary embolism without acute cor pulmonale] Onset: 09-13-2015 09-13-2015 Episodic Residual codes; unclassified (1 source) 16 weeks gestation of ; Translations: [16 weeks gestation of ] Onset: 04-07-2024 Episodic Results Test Name Value Interpretation Reference Range Facility Urinalysis macro (dipstick) panel (U)on 07-12-2024 Bilirubin, UA Negative Negative - 4(70) +++ mg/dL [facility] Blood, UA Negative Negative - 50 Aaron/mcL [facility] Healthcare Clarity, UA Clear [facility] Healthca re Color, UA Yellow [facility] Healthcar e Glucose, UA Negative Negative - 1999(110) ++++ mg/dL [facility] Interpretation and review of laboratory results Abnormal [facility] Ketones, UA Positive Negative - 160(16) ++++ mg/dL [facility] Comment on above: trace Leukocytes, UA Negative Negative - 500+++ Mikael/mcL [facility] Nitrite, UA Negative Negative - Positive [facility] pH, UA 6 5 - 9 [facility] Healthcar e Protein, UA Negative Negative - 1999(20) ++++ mg/dL [facility] Spec Grav, UA 1.025 1 - 1.03 [facility] Urobilinogen, UA 0.2 0.2 - 12 mg/dL [facility] Urinalysis macro (dipstick) panel (U)on 06-30-2024 Bilirubin, UA Negative Negative - 4(70) +++ mg/dL [facility] Blood, UA Negative Negative - 50 Aaron/mcL [facility] Healthcare Clarity, UA Clear [facility] Healthca re Color, UA Yellow [facility] Healthcar e Glucose, UA Negative Negative - 1999(110) ++++ mg/dL [facility] Interpretation and review of laboratory results Abnormal [facility] Ketones, UA Positive Negative - 160(16) ++++ mg/dL [facility] Leukocytes, UA Negative Negative - 500+++ Mikael/mcL [facility] Nitrite, UA Negative Negative - Positive [facility] pH, UA 6.5 5 - 9 [facility] Protein, UA Negative Negative - 1999(20) ++++ mg/dL [facility] Spec Grav, UA 1.03 1 - 1.03 [facility] Urobilinogen, UA 1.0 0.2 - 12 mg/dL [facility] e GLUCOSE TOLERANCE 3 HOURon GLUCOSE TOLERANCE 3 HOUR High mg/dL [facility] Comment on above: GLU FAST 93 (<95) Co l: 06/26/24 0657 GLU 1HR 131 (<180) Col: 06/26/24 0811 GLU 2HR 158H (<155) Col: 06/26/24 0905 GLU 3HR 109 (<140) Col: 06/26/24 1005 Interpretation and review of laboratory results Abnormal [facility] e CBCon 10-20-2023 Erythrocyte distribution width (RBC) [Ratio] 13.3 % Normal 11.8-14.[address] [facility] Comment on above: Performed By: #### C P, CBC #### [facility] [address] [place] [address] [place] [address] Detective Lieutenant: Robert Casiano MD #### GLYHGB #### [id number] [place], [place] [id number] Detective Lieutenant: Ivan Perez MD Hematocrit (Bld) [Volume fraction] 42.6 % Normal 36.3-47.[address] [facility] Comment on above: Performed By: #### C P, CBC #### [facility] [address] [place] [address] [place] [address] Detective Lieutenant: Robert Casiano MD #### GLYHGB #### [address] [place], [place] [id number] Detective Lieutenant: Ivan Perez MD Hemoglobin (Bld) [Mass/Vol] 13.6 g/dL Normal 11.9-15.[address] [facility] Comment on above: Performed By: #### C P, CBC #### [facility] [address] [place] [address] [place] [address] Detective Lieutenant: Robert Casiano MD #### GLYHGB #### [address] [id number] Detective Lieutenant: Ivan Perez MD MCH (RBC) [Entitic mass] 28.3 pg Normal 25.2-33.[address] [facility] Comment on above: Performed By: #### C P, CBC #### [facility] [address] [place] [address] Dr. [place], [place] [id number] Detective Lieutenant: Robert Casiano MD #### GLYHGB #### [address] [address] Detective Lieutenant: Ivan Perez MD MCHC (RBC) [Mass/Vol] 31.9 g/dL Normal 28.4-34.[address] [facility] Comment on above: Performed By: #### C P, CBC #### [address] [place] [address] Detective Lieutenant: Robert Casiano MD #### GLYHGB #### [address] [phone] Detective Lieutenant: Ivan Perez MD MCV (RBC) [Entitic vol] 88.6 fL Normal 82.6-102.[address] [facility] Comment on above: Performed By: #### C P, CBC #### [address] [place] [address] Detective Lieutenant: Robert Casiano MD #### GLYHGB #### [address] [address] Detective Lieutenant: Ivan Perez MD NRBC Automated 0.0 per 100 WBC Normal 0.[address] [facility] Comment on above: Performed By: #### C P, CBC #### [address] [place], [place] [id number] Detective Lieutenant: Robert Casiano MD #### GLYHGB #### [address] [id number] Detective Lieutenant: Ivan Perez MD Platelet mean volume (Bld) [Entitic vol] 9.1 fL Normal 8.1-13.[address] [facility] Comment on above: Performed By: #### C P, CBC #### [facility] [address] [place], [place] [id number] Detective Lieutenant: Robert Casiano MD #### GLYHGB #### [address] [id number] Detective Lieutenant: Ivan Perez MD Platelets (Bld) [#/Vol] 322 10*3/uL Normal 138-[address] [facility] Comment on above: Performed By: #### C P, CBC #### [address] [place] [id number] Detective Lieutenant: Robert Casiano MD #### GLYHGB #### [address] [address] Detective Lieutenant: Ivan Perez MD RBC (Bld) [#/Vol] 4.81 10*6/uL Normal 3.95-5.[address] [facility] Comment on above: Performed By: #### C P, CBC #### [address] [place] [id number] Detective Lieutenant: Robert Casiano MD #### GLYHGB #### [address] [address] Detective Lieutenant: Ivan Perez MD WBC (Bld) [#/Vol] 7.9 10*3/uL Normal 3.5-11.[address] [facility] Comment on above: Performed By: #### C P, CBC #### [address] [place] [address] Detective Lieutenant: Robert Casiano MD #### GLYHGB #### [address] [id number] [phone] Detective Lieutenant: Ivan Perez MD Comp Metabolic Profon 2023 Albumin [Mass/Vol] 4.3 g/dL Normal 3.5-5.[address] [facility] Comment on above: Performed By: #### C P, CBC #### [facility] [address] [place], [place] [id number] Detective Lieutenant: Robert Casiano MD #### GLYHGB #### [address] [place] [address] Detective Lieutenant: Ivan Perez MD Albumin/Glob Ratio 1.4 Normal 1.0-2.[address] [facility] Comment on above: Performed By: #### C P, CBC #### [address] [place], [place] [id number] Detective Lieutenant: Robert Casiano MD #### GLYHGB #### [address] [address] Detective Lieutenant: Ivan Perez MD Alkaline Phos 49 U/L Normal 35-104 [facility] Comment on above: Performed By: #### C P, CBC #### [address] [place], [place] [id number] Detective Lieutenant: Robert Casiano MD #### GLYHGB #### [address] [address] Detective Lieutenant: Ivan Perez MD ALT [Catalytic activity/Vol] 29 U/L Normal 5-[address] [facility] Comment on above: Performed By: #### C P, CBC #### [facility] [address] [place] [address] Dr. [place], [place] [id number] Detective Lieutenant: Robert Casiano MD #### GLYHGB #### [address] [place] [address] Detective Lieutenant: Ivan Perez MD Anion gap [Moles/Vol] 12 mmol/L Normal 9-[address] [facility] Comment on above: Performed By: #### C P, CBC #### [facility] [address] [place], [place] [id number] Detective Lieutenant: Robert Casiano MD #### GLYHGB #### [address] [place], [place] [id number] Detective Lieutenant: Ivan Perez MD AST [Catalytic activity/Vol] 25 U/L Normal <[address] [facility] Comment on above: Performed By: #### C P, CBC #### [facility] [address] [place], [place] [id number] Detective Lieutenant: Robert Casiano MD #### GLYHGB #### [address] [address] Detective Lieutenant: Ivan Perez MD Bilirubin [Mass/Vol] 0.2 mg/dL Low 0.3-1.2 [facility] Comment on above: Performed By: #### C P, CBC #### [facility] [address] [place], [place] [id number] Detective Lieutenant: Robert Casiano MD #### GLYHGB #### [address] [address] Detective Lieutenant: Ivan Perez MD BUN/CRE Ratio 28 High 9-20 [facility] Comment on above: Performed By: #### C P, CBC #### [facility] [address] [place], [place] [id number] Detective Lieutenant: Robert Casiano MD #### GLYHGB #### [address] [place] [address] Detective Lieutenant: Ivan Perez MD Calcium [Mass/Vol] 9.1 mg/dL Normal 8.6-10.[address] [facility] Comment on above: Performed By: #### C P, CBC #### [facility] [address] [place], [place] 1389283 Detective Lieutenant: Robert Casiano MD #### GLYHGB #### [address] [phone] Detective Lieutenant: Ivan Perez MD Chloride [Moles/Vol] 108 mmol/L High 98-107 [facility] Comment on above: Performed By: #### C P, CBC #### [facility] [address] [place], [place] [id number] Detective Lieutenant: Robert Casiano MD #### GLYHGB #### [address] [id number] Detective Lieutenant: Ivan Perez MD CO2 [Moles/Vol] 24 mmol/L Normal 20-31 [facility] Comment on above: Performed By: #### C P, CBC #### [facility] [address] [place], [place] 7863583 Detective Lieutenant: Robert Casiano MD #### GLYHGB #### [address] [id number] Detective Lieutenant: Ivan Perez MD Creatinine [Mass/Vol] 0.6 mg/dL Normal 0.5-0.[address] [facility] Comment on above: Performed By: #### C P, CBC #### [facility] [address] [place], [place] 7334083 Detective Lieutenant: Robert Casiano MD #### GLYHGB #### [address] [phone] Detective Lieutenant: Ivan Perez MD GFR/1.73 sq M.predicted among non-blacks MDRD (S/P/Bld) [Vol rate/Area] mL/min/{1.73_m2} Normal >[address] [facility] Comment on above: Result Comment: [...] Performed By: #### C P, CBC #### [address] [place] [address] Detective Lieutenant: Robert Casiano MD #### GLYHGB #### [address] [phone] Detective Lieutenant: Ivan Perez MD Glucose [Mass/Vol] 90 mg/dL Normal 70-[address] [facility] Comment on above: Performed By: #### C P, CBC #### [address] [place], [place] 3282383 Detective Lieutenant: Robert Casiano MD #### GLYHGB #### [address] [phone] Detective Lieutenant: Ivan Perez MD Potassium [Moles/Vol] 4.2 mmol/L Normal 3.7-5.[address] [facility] Comment on above: Performed By: #### C P, CBC #### [address] [place], [place] 5739183 Detective Lieutenant: Robert Casiano MD #### GLYHGB #### [address] [address] Detective Lieutenant: Ivan Perez MD Protein [Mass/Vol] 7.3 g/dL Normal 6.4-8.[address] [facility] Comment on above: Performed By: #### C P, CBC #### [address] [place] [address] Detective Lieutenant: Robert Casiano MD #### GLYHGB #### [facility] [address] [place] [address] Detective Lieutenant: Ivan Perez MD Sodium [Moles/Vol] 144 mmol/L Normal 135-[address] [facility] Comment on above: Performed By: #### C P, CBC #### [facility] [address] [place], [place] 5421183 Detective Lieutenant: Robert Casiano MD #### GLYHGB #### [address] [place] [address] Detective Lieutenant: Ivan Perez MD Urea nitrogen [Mass/Vol] 17 mg/dL Normal 6-[address] [facility] Comment on above: Performed By: #### C P, CBC #### [facility] [address] [place], [place] [id number] Detective Lieutenant: Robert Casiano MD #### GLYHGB #### [address] [address] Detective Lieutenant: Ivan Perez MD Hemoglobin A1Con 10-20-2023 Glucose [Mass/Vol] 105 mg/dL Normal [facility] Comment on above: Result Comment: The ADA and AACC recommend providing the estimated average glucose result to permit better patient understanding of their HBA1c result. Performed By: #### C P, CBC #### [facility] [address] [place], [place] [id number] Detective Lieutenant: Robert Casiano MD #### GLYHGB #### [address] [place] [address] Detective Lieutenant: Ivan Perez MD HbA1c (Bld) [Mass fraction] 5.3 % Normal 4.0-6.[address] [facility] Comment on above: Performed By: #### C P, CBC #### [facility] [address] [place], [place] [id number] Detective Lieutenant: Robert Csaiano MD #### GLYHGB #### [facility] [address] [place] [address] Detective Lieutenant: Ivan Perez MD Lipid Profileon 10-20-2023 Cholesterol [Mass/Vol] 163 mg/dL Normal <[address] [facility] Comment on above: Result Comment: Cholesterol Guidelines: <200 Desirable 200-240 Borderline >240 Undesirable Performed By: #### L IPR #### [address] [address] Detective Lieutenant: Ivan Perez MD Cholesterol in HDL [Mass/Vol] 44 mg/dL Normal >[address] [facility] Comment on above: Result Comment: HDL Guidelines: <40 Undesirable 40-59 Borderline >59 Desirable Performed By: #### L IPR #### [address] [address] Detective Lieutenant: Ivan Perez MD Cholesterol in LDL [Mass/Vol] 100 mg/dL Normal 0-[address] [facility] Comment on above: Result Comment: LDL Guidelines: <100 Desirable 100-129 Near to/above Desirable 130-159 Borderline >159 Undesirable Direct (measured) LDL and calculated LDL are not interchangeable tests. Performed By: #### L IPR #### [address] [address] Detective Lieutenant: Ivan Perez MD Cholesterol.total/Ch olesterol in HDL [Mass ratio] 3.7 {ratio} Normal <[address] [facility] Comment on above: Performed By: #### L IPR #### [facility] [address] [place] [address] Detective Lieutenant: Ivan Perez MD Triglyceride [Mass/Vol] 94 mg/dL Normal <[address] [facility] Comment on above: Result Comment: Triglyceride Guidelines: <150 Desirable 150-199 Borderline 200-499 High >499 Very high Based on AHA Guidelines for fasting triglyceride, June 2012. Performed By: #### L IPR #### [facility] [address] [place] [address] Detective Lieutenant: Ivan Perez MD [place] 07-11-2023 ALT [Catalytic activity/Vol] 32 U/L Normal 5-[address] [facility] Comment on above: Performed By: #### A ST, ALT #### [facility] [address] [place] [address] Detective Lieutenant: Robert Casiano MD [place] 07-11-2023 AST [Catalytic activity/Vol] 23 U/L Normal <[address] [facility] Comment on above: Performed By: #### A ST, ALT #### [facility] [address] [place], [place] [id number] Detective Lieutenant: Robert Casiano MD TSH w/reflex to FT4on 2022 Thyroid Stim. Horm. 2.14 uIU/mL Normal 0.30-5.00 [facility] Comment on above: Performed By: #### T SHX #### [facility] [address] [place] [address] Detective Lieutenant: Robert Casiano MD Glucose, Fastingon Glucose [Mass/Vol] 77 mg/dL 70 - 99 mg/dL [facility] Lipid Panelon 04-18-2022 Cholesterol [Mass/Vol] 194 mg/dL NINF - 200 mg/dL [facility] Comment on above: Cholesterol Guidelines: <200 Desirable 200-240 Borderline >240 Undesirable Cholesterol in HDL [Mass/Vol] 47 mg/dL 40 - PINF mg/dL [facility] Comment on above: HDL Guidelines: <40 Undesirable 40-59 Borderline >59 Desirable Cholesterol in LDL [Mass/Vol] 129 mg/dL 0 - 130 mg/dL [facility] Comment on above: LDL Guidelines: <100 Desirable 100-129 Near to/above Desirable 130-159 Borderline >159 Undesirable Direct (measured) LDL and calculated LDL are not interchangeable tests. Cholesterol.total/Ch olesterol in HDL [Mass ratio] 4.1 {ratio} NINF - 5 [facility] Triglyceride [Mass/Vol] 89 mg/dL NINF - 150 mg/dL [facility] Comment on above: Triglyceride Guidelines: <150 Desirable 150-199 Borderline 200-499 High >499 Very high Based on AHA Guidelines for fasting triglyceride, June 2012. gripNote Glucose, FastingOrdered By: Gunnar Palacios on 04-18-2021 Glucose [Mass/Vol] 85 mg/dL 70 - 99 mg/dL [facility], [employer] Phone: [employer] Phone: Lipid PanelOrdered By: Wesley Palacios on 04-18-2021 Cholesterol [Mass/Vol] 180 mg/dL <200 [employer] Phone: Comment on above: Cholesterol Guidelines: <200 Desirable 200-240 Borderline >240 Undesirable Cholesterol in HDL [Mass/Vol] 45 mg/dL >40 [employer] Phone: Comment on above: HDL Guidelines: <40 Undesirable 40-59 Borderline >59 Desirable Cholesterol in LDL [Mass/Vol] 113 mg/dL 0 - 130 mg/dL [employer] Phone: Comment on above: LDL Guidelines: <100 Desirable 100-129 Near to/above Desirable 130-159 Borderline >159 Undesirable Direct (measured) LDL and calculated LDL are not interchangeable tests. Cholesterol in VLDL [Mass/Vol] NOT REPORTED 1 - 30 mg/dL [employer] Phone: Cholesterol.total/Ch olesterol in HDL [Mass ratio] 4 {ratio} <5 [employer] Phone: Triglyceride [Mass/Vol] 112 mg/dL <150 [employer] Phone: Comment on above: Triglyceride Guidelines: <150 Desirable 150-199 Borderline 200-499 High >499 Very high Based on AHA Guidelines for fasting triglyceride, June 2012. [employer] Phone: Glucose, Fastingon 9 Glucose [Mass/Vol] 106 mg/dL High 70 - 99 mg/dL [facility] [place] Interpretation and review of laboratory results Abnormal [facility] [place] Insulin, Totalon 07-31-2019 INR Coag (Bld) [Relative time] [place], [place] Comment on above: Fastin.6-24.9 30 min: 20-112 60 min: 29-88 90 min: 26-84 120 min: 22-79 Insulin 44.5 mU/L [place], [place] Insulin Comment NOT REPORTED Hiwot Garcia [facility] 07-31-2019 TSH Qn 2.26 m[IU]/L [place], [place] Vital Signs Date Time Vital Sign Value Performing Clinician Faci lity 07-12-2024 14:56-0400 Body mass index (BMI) [Ratio] 37.51 kg/m2 Deborah Morley PA Work Phone: [facility] 07-12-2024 14:56-0400 Body weight 99.11 kg Deborah Morley PA Work Phone: [facility] 07-12-2024 14:56-0400 Diastolic blood pressure 80 mm[Hg] Deobrah Desirae PA Work Phone: [facility] 07-12-2024 14:56-0400 Systolic blood pressure 120 mm[Hg] Deborah Desirae PA Work Phone: [facility] 06-30-2024 14:49-0400 Body mass index (BMI) [Ratio] 37.49 kg/m2 Deborah Desirae PA Work Phone: [facility] 06-30-2024 14:49-0400 Body weight 99.07 kg Deborah Morley PA Work Phone: [facility] 06-30-2024 14:49-0400 Diastolic blood pressure 78 mm[Hg] Deborah Morley PA Work Phone: [facility] 06-30-2024 14:49-0400 Systolic blood pressure 116 mm[Hg] Deborah Desirae PA Work Phone: [facility] Healthcare Encounters Encounter Date Encounter Type Care Provider Facility Start: 07-22-2024 End: 07-22-[address] [facility] Start: 07-16-2024 End: 07-16-2024 Office outpatient visit 40 minutes Theodore King MD Work Phone: [facility]- Medicine at [facility] Comment on above: History of pulmonary embolism (Primary Dx); 30 weeks gestation of ; Impaired glucose tolerance during Start: 07-16-2024 End: 07-16-2024 ambulatory [facility] Start: 07-12-2024 End: 07-12-2024 ambulatory DEBORAH MERRILL Not Available Start: 07-12-2024 End: 07-12-2024 flow sheet Deborah ELIZONDO Work Phone: [facility] Comment on above: Third trimester preg bin; 30 weeks gestation of ; Poor growth affecting management of mother in first trimester, single or unspecified fetus Start: 07-12-2024 End: 07-12-2024 Bamboo flowsheet Deborah ELIZONDO Work Phone: [facility] Start: 07-12-2024 End: 07-12-2024 Bamboo flowsheet Deborah ELIZONDO Work Phone: [facility] Start: 07-06-2024 End: 07-06-2024 ambulatory [facility] Start: 06-30-2024 End: 06-30-2024 ambulatory DEBORAH MERRILL Not Available Start: 06-30-2024 End: 06-30-2024 flow sheet Deborah ELIZONDO Work Phone: [facility] Comment on above: Second trimester pre gnancy; 28 weeks gestation of Start: 06-30-2024 End: 06-30-2024 Bamboo flowsheet Deborah ELIZONDO Work Phone: [facility] Start: 06-30-2024 End: 06-30-2024 Bamboo flowsheet Deborah ELIZONDO Work Phone: [facility] Start: 06-26-2024 End: 06-26-2024 Clinisync Result Encounter Екатерина Nolan DO Work Phone: [facility] External Department Unsolicited Start: 06-26-2024 End: 06-26-2024 Clinisync Result Encounter Екатерина Nolan DO Work Phone: [facility] External Department Unsolicited Start: 06-23-2024 End: 06-23-2024 ambulatory [facility]АТЕРИНА [facility] Start: 06-07-2024 End: 06-07-2024 ambulatory [facility] Start: 06-02-2024 End: 06-02-2024 ambulatory DEBORAH MERRILL Not Available Start: 06-01-2024 End: 06-01-2024 ambulatory [facility] Start: 05-28-2024 End: 05-28-2024 ambulatory ЕКАТЕРИНА [facility] Start: 05-18-2024 End: 05-18-2024 ambulatory [facility] Start: 05-05-2024 End: 05-05-2024 ambulatory ЕКАТЕРИНА NOLAN Not Available Start: 05-05-2024 End: 05-05-2024 ambulatory [facility] Start: 05-05-2024 End: 05-05-2024 ambulatory [facility] Start: 04-21-2024 End: 04-21-2024 ambulatory ЕКАТЕРИНА R [facility] Start: 04-07-2024 End: 04-07-2024 ambulatory ЕКАТЕРИНА R [facility] Start: 03-31-2024 End: 03-31-2024 ambulatory ЕКАТЕРИНА NOLAN Not Available Start: 03-09-2024 End: 03-09-2024 ambulatory ЕКАТЕРИНА NOLAN Not Available Start: 03-03-2024 End: 03-03-2024 ambulatory ЕКАТЕРИНА NOLAN Not Available Start: 02-20-2024 End: 02-20-2024 ambulatory ЕКАТЕРИНА NOLAN Not Available Start: 02-16-2024 End: 02-16-2024 ambulatory ЕКАТЕРИНА NOLAN Not Available Start: 10-30-2023 End: 10-30-2023 ambulatory ЕКАТЕРИНА NOLAN Not Available Start: 10-20-2023 End: 10-21-2023 ambulatory [facility] Start: 07-11-2023 End: 07-12-2023 ambulatory [facility] Start: 05-26-2023 End: 05-27-2023 ambulatory [facility] Start: 04-18-2022 End: 04-18-2022 Subsequent hospital visit by physician Gunnar Palacios MD Work Phone: [facility] Laboratory Comment on above: Screening for diabet es mellitus; Screening cholesterol level Start: 01-30-2022 End: 01-30-2022 Patient encounter procedure Gunnar Palacios MD Work Phone: [facility] Start: 01-30-2022 End: 01-30-2022 Subsequent hospital visit by physician Gunnar Palacios MD Work Phone: [facility] Laboratory Comment on above: Women's annual routi ne gynecological examination Start: 04-18-2021 End: 04-18-2021 Patient encounter status Gunnar Palacios MD Work Phone: [facility] Start: 04-18-2021 End: 04-18-2021 Subsequent hospital visit by physician Gunnar Palacios MD Work Phone: [facility] Comment on above: Wellness examination Start: 07-31-2019 End: 07-31-2019 Subsequent hospital visit by physician Gunnar Palacios [facility] Comment on above: Irregular menses Procedures Date Procedure Procedure Detail Performing Clinician Start: 07-12-2024 Urnls dip stick/tabl et rgnt non-auto w/o micrscp Deborah ELIZONDO Work Phone: Start: 06-30-2024 Urnls dip stick/tabl et rgnt non-auto w/o micrscp Deborah ELIZONDO Work Phone: Start: 06-26-2024 GLUCOSE TOLERANCE 3 HOUR Екатерина Nolan DO Work Phone: Start: 04-18-[address] gtt [...] Treatment Date Care Activity Detail Author Start: 05-05-2025 Tobacco Screening Tobacco Screening [facility] Start: 04-21-2025 Adult BMI Screening Adult BMI Screen ing [facility] Start: 01-30-2025 Screening for malign ant neoplasm of cervix Pap smear [facility] Start: 08-19-2024 End: 08-19-2024 Telemedicine consultation with patient 08/19/2024 2:30 PM EST Telemedicine [facility] [address] [place] [phone] Theodore King MD [address] [place] [address] [facility] Start: 08-03-2024 End: 08-03-2024 Patient encounter procedure 08/03/2024 3:00 PM EST Appointment [facility] [address] [place] [phone] [facility] Start: 07-26-2024 End: 07-26-2024 Patient encounter procedure 07/26/2024 3:00 PM EST Routine [facility] [address] [place] [id number] Deborah Merrill PA [address] [place] [address] [facility] Start: 07-22-2024 End: 07-22-2024 Patient encounter procedure 07/22/2024 10:30 AM EST Appointment [facility] [place] [address] [place] [address] [facility] Start: 07-12-2024 End: 07-12-2024 Patient encounter procedure 07/12/2024 2:40 PM EDT Routine [facility] [address] [place] [phone] Deborah Merrill, PA [address] [place], [place] [id number] [facility] Start: 07-12-2024 End: 07-12-2025 US biophysical profile w non stress test US biophysical profile w non stress test Imaging Routine Third trimester Poor growth affecting management of mother in first trimester, single or unspecified fetus Expected: 07/12/2024 (Approximate), Expires: 07/12/2025 [facility] Work Phone: Comment on above: Expected: 07/12/2024 (Approximate), Expires: 07/12/2025 Start: 06-30-2024 End: 06-30-2024 Patient encounter procedure 06/30/2024 2:30 PM EDT Routine [facility] [address] [place] [phone] Deborah Merrill PA [address] [place], [place] [id number] [facility] Start: 05-16-2024 Influenza vaccination Influenza Vacc ine [facility] Start: 10-06-2023 DTaP,Tdap and Td Vaccines (7 - Td or Tdap) DTaP,Tdap and Td Vaccines (7 - Td or Tdap) [facility] Start: 10-06-2023 DTaP/Tdap/Td vaccine (7 - Td or Tdap) DTaP/Tdap/Td vaccine (7 - Td or Tdap) [facility] Start: 10-06-2023 DTaP/Tdap/Td vaccine (7 - Td) DTaP/Tdap/Td vaccine (7 - Td) [place] Start: 02-05-2023 End: 02-05-2023 Patient encounter procedure 02/05/2023 Office Visit Obstetrics and Gynecology Sarah Horn PA-C [address] [place] [address] [facility] Start: 05-16-2022 Influenza vaccination [facility] Start: 04-19-2022 End: 04-19-2022 Patient encounter procedure 04/19/2022 Office Visit Primary Care Gunnar Palacios MD [address] [place], [place] [id number] [facility] Start: 04-16-2022 Depression Screen Depression Screen [facility] Start: 05-16-2021 Influenza vaccination Flu vaccine (# 1) [facility] Work Phone: Start: 08-03-2019 End: 08-03-2019 Office Visit 08/03/2019 Office Visit Obstetrics and Gynecology [facility] PRACTICE SPECIALIST Start: 05-16-2019 Influenza vaccination Flu vaccine (# 1) [place], [place] Start: 04-02-2017 Chlamydia screen Chlamydia screen [place], [place] Start: 04-02-2017 Screening for Chlamy daniella trachomatis Chlamydia screen [facility] Start: 2017 Cervical cancer screen Cervical canc er screen [place], [place] Start: 2017 Screening for malign ant neoplasm of cervix [facility] Start: 2014 Adult BMI Follow Up Plan Adult BMI Follow Up Plan [facility] Start: 2014 Hepatitis C screening Hepatitis C sc reen [facility] Start: 2011 HIV screen HIV screen [place], [place] Start: 2008 COVID-19 Vaccine (1) COVID-19 Vaccin e (1) [employer] Phone: Start: 2008 Depression Screening Depression Scre sarmad [employer] Start: 2007 HPV vaccine (1 - 2-d ose series) HPV vaccine (1 - 2-dose series) [employer] Start: 2007 HPV vaccine (1 - Fem rahul 2-dose series) HPV vaccine (1 - Female 2-dose series) [facility] [employer] [facility] [place] [place] Start: 2001 COVID-19 Vaccine (1) COVID-19 Vaccin e (1) [employer] Start: 1996 COVID-19 Vaccine (#1) COVID-19 Vacci ne (#1) [facility] [employer] Start: 1996 Hepatitis C screening Hepatitis C sc reen [employer] Phone: End: 07-16-2025 Anti cardiolipin AB IgG IgA IgM Anti cardiolipin AB IgG IgA IgM Lab Routine History of pulmonary embolism 30 weeks gestation of 1 Occurrences starting 07/16/2024 until 07/16/2025 [employer] Phone: Comment on above: 1 Occurrences starti ng 07/16/2024 until 07/16/2025 End: 07-16-2025 Anti thrombin 3 funct Anti thrombin 3 funct Lab Routine History of pulmonary embolism 30 weeks gestation of 1 Occurrences starting 07/16/2024 until 07/16/2025 [employer] Comment on above: 1 Occurrences starti ng 07/16/2024 until 07/16/2025 End: 01-30-2022 Cytopathology procedure, preparation of smear, genital source PAP SMEAR Lab Routine Women's annual routine gynecological examination 1 Occurrences starting 01/30/2022 until 01/30/2022 [employer] Phone: Comment on above: 1 Occurrences starti ng 01/30/2022 until 01/30/2022 Immunizations Immunization Date Immunization Notes Care Provider Justine alejandro 06-15-2015 influenza virus vacc ine, whole virus Gunnar Palacios [facility] [employer] 06-15-2015 influenza virus vacc ine, unspecified formulation Theodore King MD Work Phone: [facility] 10-06-2013 hepatitis A vaccine, unspecified formulation [facility] , [place] 10-06-2013 tetanus toxoid, redu linda diphtheria toxoid, and acellular pertussis vaccine, adsorbed [facility], [place] 05-25-2013 varicella virus vaccine [facility], [place] 02-25-2013 hepatitis A vaccine, unspecified formulation [facility] , [place] 02-25-2013 meningococcal polysaccharide (groups A, C, Y and W-135) diphtheria toxoid conjugate vaccine (MCV4P) [facility], [place] 03-05-2001 diphtheria, tetanus toxoids and acellular pertussis vaccine [facility], [place] 03-05-2001 measles, mumps and rubella virus vaccine [facility], [place] 03-05-2001 poliovirus vaccine, inactivated [facility], [place] 07-14-1997 diphtheria, tetanus toxoids and acellular pertussis vaccine [facility], [place] 05-09-1997 measles, mumps and rubella virus vaccine [facility], [place] 05-09-1997 varicella virus vaccine [facility], [place] 1996 diphtheria, tetanus toxoids and acellular pertussis vaccine [facility], [place] 1996 hepatitis B vaccine, unspecified formulation [facility] , [place] 1996 poliovirus vaccine, inactivated [facility], [place] 1996 diphtheria, tetanus toxoids and acellular pertussis vaccine [facility], [place] 1996 haemophilus influenz ae type b vaccine, PRP-OMP conjugate [facility], [place] 1996 poliovirus vaccine, inactivated [facility], [place] 1996 diphtheria, tetanus toxoids and acellular pertussis vaccine [facility] 1996 haemophilus influenz ae type b vaccine, PRP-OMP conjugate [facility], [place] 1996 poliovirus vaccine, inactivated [facility], [place] 1996 haemophilus influenz ae type b vaccine, PRP-OMP conjugate [facility], [place] 1996 hepatitis B vaccine, unspecified formulation [facility] , [place] 1996 haemophilus influenz ae type b vaccine, PRP-OMP conjugate [facility], [place] 1996 hepatitis B vaccine, unspecified formulation [facility] , [place] Payers Date Payer Category Payer Managed Care Other (unspecified) [employer] [id number] 2023 Private Health Insurance [employer] [id number] 2023 Unknown [employer] [id number] 2023-Present [phone] [address] [address] [place] [address] [id number] 2023 Unknown [id number] 2021 Unknown [id number] 2020 Unknown [id number] .[id number] 2016 Unknown [employer] [facility] xxxxxxxxxxxx 2016-Present [phone] [address] [place] [address] xxxxxxxxxxxx [id number] .[id number] 1996 Unknown [id number] 2.16.840.1.223712.3.579.2 .173 1996 Unknown [id number] 2.16.840.1.153335.3.579.2 .173 1996 Unknown [id number] 2.16.840.1.216601.3.579.2 .173 1996 Unknown [id number] 2.16.840.1.657790.3.579.2 .1286 1996 Unknown [id number] 2.16.840.1.468393.3.579.2 .1286 1996 Unknown [id number] 2.16.840.1.710658.3.579.2 .1286 1996 Unknown [id number] 2.16.840.1.932200.3.579.2 .1259 1996 Unknown [id number] 2.16.840.1.634773.3.579.2 .1259 1996 Unknown [id number] 2.16.840.1.481821.3.579.2 .1259 1996 Unknown [id number] 2.16.840.1.938923.3.579.2 .1259 1996 Unknown [id number] 2.16.840.1.740698.3.579.2 .1258 1996 Unknown [id number] 2.16840.1.270279.3.579.2 .1258 1996 Unknown [id number] 2.16.840.1.848924.3.579.2 .1258 1996 Unknown [id number] 2.16840.1.321055.3.579.2 .1258 1996 Unknown [id number] 2.16840.1.107787.3.579.2 .1258 1996 Unknown [id number] 2.16840.1.526193.3.579.2 .1258 1996 Unknown [id number] 2.840.1.882351.3.579.2 .1285 1996 Unknown [id number] 2.840.1.958465.3.579.2 .1285 1996 Unknown [id number] 2.840.1.675094.3.579.2 .1285 1996 Unknown [id number] 2.16840.1.163708.3.579.2 .1285 1996 Unknown [id number] 2.16840.1.621571.3.579.2 .1285 1996 Unknown [id number] 2.16840.1.807072.3.579.2 .1285 1996 Unknown [id number] 2.16840.1.843018.3.579.2 .1285 1996 Unknown [id number] 2.16840.1.077034.3.579.2 .1285 1996 Unknown [id number] 2.16840.1.238912.3.579.2 .1285 1996 Unknown [id number] 2.16840.1.292088.3.579.2 .1285 1996 Unknown [id number] 2.16.840.1.071619.3.579.2 .1286 Social History Date Type Detail Facility Start: 07-13-2019 End: 03-15-2024 Tobacco smoking status NHIS Never smoker [facility] [facility] [place] Start: 07-13-2019 End: 01-30-2022 Alcohol intake Current non-drinker of alcohol (finding) [place], [place] Start: 1996 Sex Assigned At Not on file [facility] [employer] [facility] [place] [place] Start: 04-16-2021 End: 03-15-2024 Tobacco use and exposure Never used [employer] Phone: Start: 04-16-2021 History SDOH Financial 5 [employer] Phone: Start: 04-16-2021 History SDOH Food Worry 1 [employer] Phone: Start: 04-16-2021 History SDOH Transport Med 2 [employer] Phone: Start: 05-05-2024 End: 06-02-2024 Alcoholic beverage intake Ex-drinker (finding) [facility] Start: 02-16-2024 End: 04-07-2024 History of Social function [facility] [employer] System Start: 02-16-2024 End: 04-07-2024 Tobacco use panel [facility] Start: 12-27-2023 [facility] Start: 1995 Sex assigned at Female [facility] Start: 10-23-2023 Gender identity Identifies as female gender (finding) [facility] Start: 10-23-2023 Sexual orientation Heterosexual (finding) [facility] Within the past 12 months we worried whether our food would run out before we got money to buy more. Never True [facility] [employer] System Start: 03-11-2024 Sex Female (finding) [facility] Medical Equipment Procedure Code Equipment Code Equipment Origin al Text Equipment Identifier Dates [id number], [id number] Star t: 07-16-2024 End: 07-16-2024 Goals Date Patient Goal Desired Activity /State Personal health goal History of Present illness Narrative 07-16-2024 Theodore King MD - 07/16/2024 11:30 AM EDT Note Date & Type Note Facility 07-16-2024 History of Present illness Narrative Video Visit via Real-time Synchronous Audiovisual Provider Location: [facility] MEDICINE AT [address] [phone] Patient Location: Other Patient Location Photogrammetric Surveyor: None Video Visit Consent Statement: I discussed risks, benefits, and alternatives of a real-time synchronous audiovisual consultation with the patient (and any accompanying persons) including the risks that the patient's personal health details and medical records will be discussed over real-time, synchronous, interactive video/audio/telecommunication technology, the visit will not be recorded without the express consent of both the provider and the patient, and that there are some limitations compared to [id number] evaluations. We elected to proceed. REASON FOR TELEHEALTH VISIT: History of PE, Subchorionic hematoma, FGR HISTORY OF PRESENT ILLNESS: Laura Marie is a pleasant 29 y.o. at 30w6d due on Estimated Date of Delivery: 09/18/24. 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 She has not had any recurrent episodes of DVT or PE. She has not been on anticoagulation since she was 20 years old. She does have a family history of a DVT in her father. Subchorionic hematomas, resolved without further episodes of vaginal bleeding since the 1st trimester. growth restriction diagnosed at 16wk GA, initially EFW 2.2%, follow up 7%. She is well dated with an LMP equals 8 week ultrasound. Most recent growth EFW 3.2%. UA Doppler within normal limits. Obesity, BMI 36 Abnormal [place] (06/14 136)with follow up 3hr GTT (06/26 93/131/158/109), consistent with impaired glucose tolerance in Today, the patient is doing well. She denies SOB or chest pain. She denies contractions, vaginal bleeding, leaking of fluid. She reports good movement. Aneuploidy screening: low risk cell free DNA Carrier screening: Baby girl: Name private CURRENT MEDICATIONS: Current Outpatient Medications: enoxaparin (LOVENOX) 40 mg/0.4 mL syringe, Inject 0.4 mL (40 mg total) under the skin in the morning. (Patient not taking: Reported on 05/05/2024), Disp: 12 mL, Rfl: 6 25/iron fum/folic/dha (-1 ORAL), Take by mouth., Disp: , Rfl: sertraline (ZOLOFT) 25 mg tablet, Take 1 tablet (25 mg total) by mouth in the morning., Disp: , Rfl: REVIEW OF SYSTEMS: Head and Neck: Negative for any dizziness and headaches. Cardiovascular and Respiratory System: Denies any chest pain, shortness of breath, and coughing. Abdominal and System: Denies any abdominal pain, nausea, vomiting, vaginal bleeding, and vaginal discharge HABITS: Patient activity no restrictions, diet no restrictions REVIEW OF TESTS AND ULTRASOUND REPORTS: Referral records and epic chart were reviewed Pertinent Ultrasound findings are see formal ultrasound report. PHYSICAL EXAMINATION: LMP 12/13/2023 telehealth visit Well-appearing in no distress. Respirations not labored, speaking comfortably in full sentences OVERALL ASSESSMENT -Laura Beat is a pleasant 29 y.o. at 30w6d -h/o PE, on lovenox -FGR, normal UA Doppler -obesity -impaired glucose tolerance in COUNSELING History of pulmonary embolism, on Lovenox We reviewed that anticoagulation is associated with increased risk of requiring general anesthesia. Prophylactic low molecular weight heparin should be held for 12 hours before induction of labor to facilitate neuraxial anesthesia. I reviewed that transitioning to unfractionated heparin is associated with increased frequency of injections, decreased by availability and increased risk of heparin induced thrombocytopenia. Thus I recommend continuing low-molecular weight heparin throughout , and holding for 12 hours prior to scheduled or induction of labor. Anticoagulation therapy should be restarted once the OB team clears patient, and it should be started no sooner than 4-6 hours after vaginal delivery or 6-12 hours after delivery. Signs and symptoms of VTE were reviewed in detail, including unilateral lower extremity swelling, pain, palpable cord, or erythema in a lower extremity, shortness of breath and difficulty breathing, and chest pain. Impaired glucose tolerance in Glucose goals in : Fasting 60 - 95: Mean fasting glucose values are important in managing diabetes in women because they provide overall glycemic estimate, and are predictive of increased fat mass in the women s offspring. Increased fat mass has been shown to be associated with the development of childhood obesity, and diabetes. One hour postprandial 90 - 140: Postprandial measurements are important in management of diabetes in because they are associated with incidence of large for gestational age infants, and lower rates of delivery for cephalopelvic disproportion when well controlled. Discussed monitoring for hypogylcemia, and treatment of hypoglycemia. Discussed her current diet and her awareness of grams of carbohydrate per meal. Encouraged her to be aware of carbohydrate intake and note which foods causing values above goal. Encouraged her on diet modifications. SUMMARY/RECOMMENDATION: Complete testing for inherited thrombophilias (antithrombin III deficiency) and acquired thrombophilias (anticardiolipin antibody), please complete testing. If inherited thrombophilia testing results positive, would recommend higher dosing of anticoagulation with therapeutic dosing during . Recommend monitoring fingersticks 4 times daily for 1-2 weeks given impaired glucose tolerance on 3 hour GTT. Patient to send in logs to [facility]. Supplies ordered today. Continue serial growth ultrasounds every 4 weeks through [facility] Continue umbilical artery Dopplers every 2 weeks, through [facility] Recommend ANFS: NST and NICHOLAS weekly starting now, increase to twice weekly NST/weekly NICHOLAS at 36 weeks GA, through primary OB Recommend continuing Lovenox 40 mg daily antepartum and 6 weeks Recommend delivering at 39 weeks' gestation, scheduled delivery Recommend holding Lovenox the morning of her scheduled delivery to facilitate regional anesthesia Delivery timing: EFW less than the 3rd percentile deliver at 37 weeks. If 3-10 percentile deliver 38-39 weeks GA if normal Doppler Elevated S/D ratio 37 weeks Absent EDF 34 weeks Reverse EDF 32 weeks Ductus venosus absent: at diagnosis Concurrent comorbidities: 34 weeks Delivery method preferred vaginal. Colcord C/S for usual obstetrical indications Consider steroids if delivery before 37 weeks. Consider neuro magnesium if delivery before 32 weeks Recommend restarting Lovenox in the period once hemodynamically stable and safe from a anesthesia standpoint, to be continued through 6 weeks DISPOSITION: At this point the patient is in complete care of her cartographic designer. Patient does have ultrasound and office visit scheduled with us. Thank you for allowing me to participate in the care of Laura Marie. If there any questions please do not hesitate to contact us. Theodore King MD Maternal- Medicine [facility] [address] [facility] 1st [place] [address] [facility], the CDC, and other organizations representing maternal and public health professionals recommend that , , and lactating people and those considering receive the COVID-19 vaccination. Vaccination is the best method to reduce maternal and complications of SARS-CoV-2 infection. This document was created with [employer] technology. Though I make every effort to review the dictation as it is transcribed, on occasion the spoken word can be misinterpreted by the technology leading to inappropriate words, phrases, or sentences. This note is addressed to the requesting provider as a consultation for clinical guidance. Specific medical abbreviations are occasionally used and those are generally approved by the [place]?Board of?Obstetrics and?Gynecology?as well as?Karel giang abbreviations. The above plan of care was based solely on the diagnoses for which a consultation was requested. ?More frequent testing may be indicated based on her other medical/obstetrical conditions. The management of other or medical conditions is beyond the scope of requested consultation and will continue to be followed by the primary cartographic designer or primary care provider. Note to patient: The 21st Century Cures Act makes medical notes like these available to patients in the interest of transparency. However, be advised this is a medical document. It is intended as peer to peer communication. It is written in medical language and may contain abbreviations or verbiage that are unfamiliar. It may appear blunt or direct. Medical documents are intended to carry relevant information, facts as evident, and the clinical opinion of the practitioner. Total time spent was 47 minutes: Preparing to see the patient (e.g., review of tests) Obtaining and/or reviewing separately obtained history Performing a medically appropriate examination and/or evaluation Counseling and educating the patient/family/caregiver - 35 min spent in counseling and education Ordering medications, tests, or procedures Referring and communicating with other health career center advisor (not separately reported) Documenting clinical information in the electronic or other health record documented in this encounter [facility] History of Present illness Narrative 07-12-2024 CARO Singh - 07/12/2024 2:40 PM EDT Note Date & Type Note Facility 07-12-2024 History of Presen t illness Narrative Reason for Appointment: Patient ID: Laura Marie is a 29 y.o. female who presents for Routine Visit Patient presents today for Return OB appointment. MEDICATIONS Current Outpatient Medications Medication Instructions Enoxaparin Sodium 40 mg, Subcutaneous, Daily Brmgbnrk-Lty-Xe-FA ( 1 + IRON PO) Oral sertraline (Zoloft) 25 MG tablet 1 tablet, Oral, Daily ALLERGIES Allergies Allergen Reactions Cefprozil Hives PROBLEMS Active Ambulatory Problems Diagnosis Date Noted No Active Ambulatory Problems Resolved Ambulatory Problems Diagnosis Date Noted No Resolved Ambulatory Problems Past Medical History: Diagnosis Date Female infertility Hormone disorder Iron deficiency anemia Polycystic ovary syndrome Pulmonary embolism with infarction (CMS/HCC) HISTORY PAST MEDICAL HISTORY SOCIAL HISTORY Past Medical History: Diagnosis Date Female infertility Hormone disorder Iron deficiency anemia Polycystic ovary syndrome Pulmonary embolism with infarction (CMS/HCC) Social History Tobacco Use Smoking status: Never Smokeless tobacco: Never Substance Use Topics Alcohol use: Not Currently Drug use: Never FAMILY HISTORY Family History Problem Relation Name Age of Onset Hypertension Mother Caden Garcia Breast cancer Mother Caden Garcia Hypertension Father Louis Garcia Diabetes Father Louis Garcia Heart disease Father Louis Garcia Cancer Maternal Grandmother Cancer Maternal Grandfather Cisco Jaison Heart disease Paternal Grandfather SURGICAL HISTORY Past Surgical History: Procedure Laterality Date WISDOM TOOTH EXTRACTION wisdom teeth REVIEW OF SYSTEMS Review of Systems: Review of Systems Constitutional: Negative. HENT: Negative. Eyes: Negative. Respiratory: Negative. Cardiovascular: Negative. Gastrointestinal: Negative. Genitourinary: Negative. Musculoskeletal: Negative. Skin: Negative. Neurological: Negative. All other systems reviewed and are negative. Hematological: Negative. Endocrine: Negative. Allergic/Immunologic: Negative. OBJECTIVE Objective: Physical Exam Constitutional: Appearance: Normal appearance. She is normal weight. HENT: Head: Normocephalic. Cardiovascular: Rate and Rhythm: Normal rate. Pulses: Normal pulses. Pulmonary: Effort: Pulmonary effort is normal. Breath sounds: Normal breath sounds. Abdominal: Palpations: Abdomen is soft. Musculoskeletal: General: Normal range of motion. Neurological: General: No focal deficit present. Mental Status: She is alert and oriented to person, place, and time. Psychiatric: Mood and Affect: Mood normal. Behavior: Behavior normal. Thought Content: Thought content normal. Judgment: Judgment normal. Vitals and nursing note reviewed. Vitals: Estimated body mass index is 37.51 kg/m as calculated from the following: Height as of 24: 5' 4 . Weight as of this encounter: 218 lb 8 oz. BP: 120/80 Patient's last menstrual period was 12/13/2023. ASSESSMENT & PLAN ICD-10-CM 1. Third trimester Z34.93 2. 30 weeks gestation of Z3A.30 POCT urinalysis dipstick manually resulted Return OB: Patient presents today for a routine obstetrics appointment. Patient is currently 30w2d . Patient states she is doing well but has complaints of being tired due to current . Patient has verbalizes frequent movement. labor precautions was discussed/given and patient was instructed to perform kick counts three times a day. Orders Placed This Encounter Procedures POCT urinalysis dipstick manually resulted Follow Up: Patient is to return to office in 2 week for routine OB appointment. Documented by Josselyn Silver on behalf of: CARO Singh documented in this encounter [facility] History of Present illness Narrative 06-30-2024 CARO Singh - 06/30/2024 2:30 PM EDT Note Date & Type Note Facility 06-30-2024 History of Presen t illness Narrative Reason for Appointment: Patient ID: Laura Marie is a 29 y.o. female who presents for Routine Visit Patient presents today for Return OB appointment. MEDICATIONS Current Outpatient Medications Medication Instructions Enoxaparin Sodium 40 mg, Subcutaneous, Daily Hplvdfog-Hup-Yo-FA ( 1 + IRON PO) Oral sertraline (Zoloft) 25 MG tablet 1 tablet, Oral, Daily ALLERGIES Allergies Allergen Reactions Cefprozil Hives PROBLEMS Active Ambulatory Problems Diagnosis Date Noted No Active Ambulatory Problems Resolved Ambulatory Problems Diagnosis Date Noted No Resolved Ambulatory Problems Past Medical History: Diagnosis Date Female infertility Hormone disorder Iron deficiency anemia Polycystic ovary syndrome Pulmonary embolism with infarction (CMS/HCC) HISTORY PAST MEDICAL HISTORY SOCIAL HISTORY Past Medical History: Diagnosis Date Female infertility Hormone disorder Iron deficiency anemia Polycystic ovary syndrome Pulmonary embolism with infarction (CMS/HCC) Social History Tobacco Use Smoking status: Never Smokeless tobacco: Never Substance Use Topics Alcohol use: Not Currently Drug use: Never FAMILY HISTORY Family History Problem Relation Name Age of Onset Hypertension Mother Caden Garcia Breast cancer Mother Caden Garcia Hypertension Father Louis Garcia Diabetes Father Louis Garcia Heart disease Father Louis Garcia Cancer Maternal Grandmother Cancer Maternal Grandfather Cisco Jaison Heart disease Paternal Grandfather SURGICAL HISTORY Past Surgical History: Procedure Laterality Date WISDOM TOOTH EXTRACTION wisdom teeth REVIEW OF SYSTEMS Review of Systems: Review of Systems Constitutional: Negative. HENT: Negative. Eyes: Negative. Respiratory: Negative. Cardiovascular: Negative. Gastrointestinal: Negative. Genitourinary: Negative. Musculoskeletal: Negative. Skin: Negative. Neurological: Negative. All other systems reviewed and are negative. Hematological: Negative. Endocrine: Negative. Allergic/Immunologic: Negative. OBJECTIVE Objective: Physical Exam Constitutional: Appearance: Normal appearance. She is normal weight. HENT: Head: Normocephalic. Cardiovascular: Rate and Rhythm: Normal rate. Pulses: Normal pulses. Pulmonary: Effort: Pulmonary effort is normal. Breath sounds: Normal breath sounds. Abdominal: Palpations: Abdomen is soft. Musculoskeletal: General: Normal range of motion. Neurological: General: No focal deficit present. Mental Status: She is alert and oriented to person, place, and time. Psychiatric: Mood and Affect: Mood normal. Behavior: Behavior normal. Thought Content: Thought content normal. Judgment: Judgment normal. Vitals and nursing note reviewed. Vitals: Estimated body mass index is 37.49 kg/m as calculated from the following: Height as of 02/16/24: 5' 4 . Weight as of this encounter: 218 lb 6.4 oz. BP: 116/78 Patient's last menstrual period was 12/13/2023. ASSESSMENT & PLAN ICD-10-CM 1. Second trimester Z34.92 Urine dip 2. 28 weeks gestation of Z3A.28 Return OB: Patient presents today for a routine obstetrics appointment. Patient is currently 28w5d . Patient states she is doing well but has complaints of being tired due to current . Patient has verbalizes frequent movement. labor precautions was discussed/given and patient was instructed to perform kick counts three times a day. Orders Placed This Encounter Procedures Urine dip Follow Up: Patient is to return to office in 2 week for routine OB appointment. Documented by CARO Singh on behalf of: CARO Singh documented in this encounter [facility] Evaluation note Note Date & Type Note Facility Evaluation note Diagnosis Wellness examination documented in this encounter [employer] Phone: Evaluation note Note Date & Type Note Facility Evaluation note Diagnosis Women's annual routine gynecological examination documented in this encounter [employer] Phone: Evaluation note Note Date & Type Note Facility Evaluation note Diagnosis Screening for diabetes mellitus Screening cholesterol level Screening for lipoid disorders documented in this encounter [facility] [employer] Phone: Evaluation note Note Date & Type Note Facility Evaluation note Diagnosis Second trimester state, incidental 28 weeks gestation of documented in this encounter [facility] Evaluation note Note Date & Type Note Facility Evaluation note Diagnosis Third trimester state, incidental 30 weeks gestation of Poor growth affecting management of mother in first trimester, single or unspecified fetus documented in this encounter [facility] Evaluation note Note Date & Type Note Facility Evaluation note Diagnosis History of pulmonary embolism- Primary Personal history of venous thrombosis and embolism 30 weeks gestation of Impaired glucose tolerance during documented in this encounter [facility] Instructions Note Date & Type Note Facility Instructions Not on filedocumented in this en counter [facility] Assessments Diagnosis Irregular menses Irregular menstrual cycle Advance Directives No Advanced Directives Records FoundDocuments on File Type Date Recorded Patient Performance Improvement Manager Expl anation Advance Directives and Living Will Power of Events Solutions Consultant Latest Code Status on File Code Status Date Activated Date Inactivated Comments Full Code 09/13/2015 8:45 PM 09/14/2015 5:05 PM Documents on File Type Date Recorded Patient Performance Improvement Manager Expl anation ACP-Advance Directive ACP-Power of Events Solutions Consultant Summary Purpose Family History No Family History Records FoundNo Family History Records FoundNo Family History Records FoundNo Family History Records FoundNo Family History Records Found Additional Source Comments Care Teams (unrecognized sec tion and content) Supervisor Properties Relationship Specialty Start Date End Date Gunnar Palacios MD [address] [facility] [address] [place] [address] PCP - General Family Medicine 09/22/15 [employer]visor Properties Relationship Specialty Start Date End Date Gunnar Palacios MD [address] [facility] [address] [place] [address] PCP - General Family Medicine 09/22/15 INFORMATION SOURCE (unrecogn ized section and content) DATE CREATED AUTHOR 10/21/2023 [facility] DATE CREATED AUTHOR AUTHOR'S ORGANIZ ATION 06/09/2024 [facility] DATE CREATED AUTHOR AUTHOR'S ORGANIZ ATION 07/13/2024 [facility] EPIC DATE CREATED AUTHOR AUTHOR'S ORGANIZ ATION 07/18/2024 [facility] DATE CREATED AUTHOR AUTHOR'S ORGANIZ ATION 07/24/2024 [facility] Reason for Visit (unrecogniz ed section and content) Reason Comments Routine Visit FOR RECORDS PERTAINING TO PATIENTS WHO ARE [...] BE BASED ON THE PRIMARY CLINICAL RECORDS. [employer] provides no warranty or guarantee of the accuracy or completeness of information in this document."
--- NOTE | 2024-07-26 14:59 | US_ITS ---
[address] [address] Patient Name: LAURA OROSCO MRN: [id number] date: 1995 Sex: F Assigned Patient Location: [facility] Current Patient Location: Accession/Order Number: [id number] Exam Date: 07/26/2024 15:04 Report Date: 07/26/2024 16:01 At the request of: ЕКАТЕРИНА BARBOZA Procedure: US OB BPP w non-stress EXAMINATION: US OB BPP w non-stress HISTORY: POOR GROWTH [id number] COMPARISON: No relevant comparison available. TECHNIQUE: Ultrasound biophysical profile was performed in the radiology department. non-reactive stress testing was performed by nursing staff in the birthing center. FINDINGS: BREATHING MOVEMENTS: 2 GROSS BODY MOVEMENTS: 2 TONE: 2 QUALITATIVE AMNIOTIC FLUID VOLUME: 2 PRESENTATION: CEPHALIC HEART RATE: 134.33 bpm AMNIOTIC FLUID VOLUME: 20.6 cm GESTATIONAL AGE: 32 weeks 2 days US/US OB BPP w non-stress IMPRESSION: Total biophysical profile score: 8 Electronically authenticated by: KRISTINE QUINONES Date: 07/26/2024 16:01
[2024-07-26 15:28] VITALS: BP 115/67; PULSE 103
== END 2024-07-26 16:02 | disposition home or self-care (01) ==
LOC: US 07:07 → FBC 14:53
PROVIDERS: PCP Nurse Practitioner Women's Health; Visit Provider Obstetrics & Gynecology
DX: Z34.93 Encounter for supervision of normal pregnancy, unspecified, third trimester (principal); Z3A.32 32 weeks gestation of pregnancy
CPT/HCPCS: 76818

== ENCOUNTER 2024-07-29 08:18 | Outpatient (OUT) | payer OTHER, SELFPAY ==
--- OUTSIDE RECORDS SUMMARY | 2024-07-29 08:29 | XMS_ITS | CCD ---
Author Organization [facility] Care Team Providers Care Measurement Coordinator Name Role Phone Philip Luis Antoniofrancdmitry Nataliya Primary Care Provider [phone] EMILY WARREN Primary Care Unavailable EMILY WARREN [...] (antibiotic) (1 source) cefprozil Drug Allergy 3 [facility] (9 sources) cefprozil; Translations: [CEFPROZIL] Drug Allergy 3 [place], [place] (7 sources) Cefprozil Propensity to adverse reactions 6 [facility] Medications Current Medications Medication Drug Class(es) Dates Sig (Normalized) Sig (Original) 0.4 ml enoxaparin sodium 100 mg/ml prefilled syringe (10 sources) Low Molecular Weight Heparin Start: 04-21-2024 [...] 11 09/07/2019 Active 25/iron fum/folic/dha (-1 ORAL) (3 sources) 25/iron fum/folic/dha (-1 ORAL) Take by mouth. Active Wuqcxidu-Pli-Mz-FA ( 1 + IRON PO) (7 sources) Tshgdirf-Ved-Lf-FA ( 1 + IRON PO) Take by mouth Active sertraline 25 mg oral tablet (10 sources) Serotonin Reuptake Inhibitor Start: take 1 tablet by mouth in the [...] tolerance complicating ; childbirth; or the puerperium (3 sources) Impaired glucose tolerance in ; Translations: [Abnormal glucose complicating ] 07-16-2024 Episodic Disorders of lipid metabolism (3 sources) Mixed hyperlipidemia; Translations: [Mixed hyperlipidemia] Onset: 05-26-2023 Chronic Menstrual disorders (5 sources) Irregular periods; Translations: [Dysmenorrhea] Onset: 09-21-2015 09-21-2015 Chronic Other complications of (2 sources) Obesity complicating , unspecified trimester; Translations: [Obesity complicating , unspecified trimester] Onset: 04-07-2024 Chronic Other complications of (2 sources) Maternal obesity complicating , childbirth and the puerperium, antepartum; Translations: [Obesity complicating , unspecified trimester] 07-28-2024 Chronic Other complications of (7 sources) Poor growth affecting management; Translations: [Maternal care for other known or suspected poor growth, first trimester, not applicable or unspecified] Onset: 05-05-2024 07-12-2024 Episodic Other complications of (3 sources) Placenta circumvallata; Translations: [Circumvallate placenta, second trimester] [...] trimester] Onset: 04-21-2024 Episodic Other complications of (2 sources) growth restriction; Translations: [Maternal care for other known or suspected poor growth, unspecified trimester, not applicable or unspecified] 07-28-2024 Episodic Other endocrine disorders (3 sources) Polycystic [...] second trimester] 06-30-2024 Episodic Pulmonary heart disease (12 sources) Acute pulmonary embolism; Translations: [Other pulmonary [...] Polyhydramnios and other problems of amniotic cavity (5 sources) Subchorionic hematoma; Translations: [Other specified disorders of amniotic fluid and membranes, second trimester, not applicable or unspecified] Onset: 04-21-2024 04-21-2024 Episodic Residual codes; unclassified (1 source) 16 weeks gestation of ; Translations: [16 weeks gestation of ] Onset: 04-07-2024 Episodic Results Test Name Value Interpretation Reference Range Facility Urinalysis macro (dipstick) panel (U)on 07-12-2024 Bilirubin, UA Negative Negative - 4(70) +++ mg/dL [facility] Blood, UA Negative Negative - 50 Aaron/mcL [facility] Clarity, UA Clear [facility] Color, UA Yellow [facility] Glucose, UA Negative Negative - 1999(110) ++++ mg/dL [facility] Interpretation and review of laboratory results Abnormal [facility] Ketones, UA Positive Negative - 160(16) ++++ mg/dL [facility] Comment on above: trace Leukocytes, UA Negative Negative - 500+++ Mikael/mcL [facility] Nitrite, UA Negative Negative - Positive [facility] pH, UA 6 5 - 9 [facility] e Protein, UA Negative Negative - 1999(20) ++++ mg/dL [facility] Spec Grav, UA 1.025 1 - 1.03 [facility] Urobilinogen, UA 0.2 0.2 - 12 mg/dL [facility] Urinalysis macro (dipstick) panel (U)on 06-30-2024 Bilirubin, UA Negative Negative - 4(70) +++ mg/dL [facility] Blood, UA Negative Negative - 50 Aaron/mcL [facility] Clarity, UA Clear [facility] Color, UA Yellow [facility] Glucose, UA Negative Negative - 1999(110) ++++ mg/dL [facility] Interpretation and review of laboratory results Abnormal [facility] Ketones, UA Positive Negative - 160(16) ++++ mg/dL [facility] Leukocytes, UA Negative Negative - 500+++ Mikael/mcL [facility] Nitrite, UA Negative Negative - Positive [facility] pH, UA 6.5 5 - 9 [facility] Protein, UA Negative Negative - 2000(20) ++++ mg/dL [facility] Spec Grav, UA 1.03 1 - 1.03 [facility] Urobilinogen, UA 1.0 0.2 - 12 mg/dL [facility] GLUCOSE TOLERANCE 3 HOURon GLUCOSE TOLERANCE 3 HOUR High mg/dL [facility] Comment on above: GLU FAST 93 (<95) Co l: 06/26/24 0657 GLU 1HR 131 (<180) Col: 06/26/24 0811 GLU 2HR 158H (<155) Col: 06/26/24 0905 GLU 3HR 109 (<140) Col: 06/26/24 1005 Interpretation and review of laboratory results Abnormal [facility] e CBCon 10-20-2023 Erythrocyte distribution width (RBC) [Ratio] 13.3 % Normal 11.8-14.4 [facility] Comment on above: Performed By: #### C P, CBC #### [facility] [address] [place] [address] [place] [address] [employer]: Robert Casiano MD #### GLYHGB #### [address] [address] [employer]: Ivan Perez MD Hematocrit (Bld) [Volume fraction] 42.6 % Normal 36.3-47.1 [facility] Comment on above: Performed By: #### C P, CBC #### [facility] [address] [place] [address] [place] [address] [employer]: Robert Casiano MD #### GLYHGB #### [address] [address] [place], [place] [phone] [employer]: Ivan Perez MD Hemoglobin (Bld) [Mass/Vol] 13.6 g/dL Normal 11.9-15.1 [facility] Comment on above: Performed By: #### C P, CBC #### [address] [place] [address] [employer]: Robert Casiano MD #### GLYHGB #### [address] [phone] [employer]: Ivan Perez MD MCH (RBC) [Entitic mass] 28.3 pg Normal 25.2-33.5 [facility] Comment on above: Performed By: #### C P, CBC #### [address] [place] [address] [employer]: Robert Casiano MD #### GLYHGB #### [address] [id number] [employer]: Ivan Perez MD MCHC (RBC) [Mass/Vol] 31.9 g/dL Normal 28.4-34.8 [facility] Comment on above: Performed By: #### C P, CBC #### [address] [place] [address] [employer]: Robert Casiano MD #### GLYHGB #### [address] [id number] [employer]: Ivan Perez MD MCV (RBC) [Entitic vol] 88.6 fL Normal 82.6-102.9 [facility] Comment on above: Performed By: #### C P, CBC #### [address] [place] [address] [employer]: Robert Casiano MD #### GLYHGB #### [address] [id number] [employer]: Ivan Perez MD NRBC Automated 0.0 per 100 WBC Normal 0.0 [facility] Comment on above: Performed By: #### C P, CBC #### [facility] [address] [place], [place] [phone] [employer]: Robert Casiano MD #### GLYHGB #### [id number] [place], [place] 1037208 [employer]: Ivan Perez MD Platelet mean volume (Bld) [Entitic vol] 9.1 fL Normal 8.1-13.5 [facility] Comment on above: Performed By: #### C P, CBC #### [facility] [address] [address] [employer]: Robert Casiano MD #### GLYHGB #### [id number] [place], [place] [phone] [employer]: Ivan Perez MD Platelets (Bld) [#/Vol] 322 10*3/uL Normal 138-453 [facility] Comment on above: Performed By: #### C P, CBC #### [facility] [address] [place], [place] [phone] [employer]: Robert Casiano MD #### GLYHGB #### [id number] [place], [place] [phone] [employer]: Ivan Perez MD RBC (Bld) [#/Vol] 4.81 10*6/uL Normal 3.95-5.11 [facility] Comment on above: Performed By: #### C P, CBC #### [facility] [address] [address] [employer]: Robert Casiano MD #### GLYHGB #### [id number] [place], [place] [phone] [employer]: Ivan Perez MD WBC (Bld) [#/Vol] 7.9 10*3/uL Normal 3.5-11.3 [facility] Comment on above: Performed By: #### C P, CBC #### [facility] [address] [place], [place] [phone] [employer]: Robert Casiano MD #### GLYHGB #### [address] [address] [employer] Associate: Ivan Perez MD Comp Metabolic Profon 2023 Albumin [Mass/Vol] 4.3 g/dL Normal 3.5-5.2 [facility] Comment on above: Performed By: #### C P, CBC #### [facility] [address] [place], [place] [phone] [employer]: Robert Casiano MD #### GLYHGB #### [address] [address] [employer]: Ivan Perez MD Albumin/Glob Ratio 1.4 Normal 1.0-2.5 [facility] Comment on above: Performed By: #### C P, CBC #### [facility] [address] [place], [place] [phone] [employer]: Robert Casiano MD #### GLYHGB #### [address] [address] [employer] Associate: Ivan Perez MD Alkaline Phos 49 U/L Normal 35-104 [facility] Comment on above: Performed By: #### C P, CBC #### [facility] [address] [place], [place] [phone] [employer]: Robert Casiano MD #### GLYHGB #### [address] [address] [employer] Associate: Ivan Perez MD ALT [Catalytic activity/Vol] 29 U/L Normal 5-33 [facility] Comment on above: Performed By: #### C P, CBC #### [facility] [address] [place], [place] [phone] [employer]: Robert Casiano MD #### GLYHGB #### [address] [place], [place] [phone] [employer]: Ivan Perez MD Anion gap [Moles/Vol] 12 mmol/L Normal 9-17 [facility] Comment on above: Performed By: #### C P, CBC #### [facility] [address] [place], [place] [phone] [employer]: Robert Casiano MD #### GLYHGB #### [address] [phone] [employer]: Ivan Perez MD AST [Catalytic activity/Vol] 25 U/L Normal <32 [facility] Comment on above: Performed By: #### C P, CBC #### [facility] [address] [place], [place] [phone] [employer]: Robert Casiano MD #### GLYHGB #### [address] [address] [employer] Associate: Ivan Perez MD Bilirubin [Mass/Vol] 0.2 mg/dL Low 0.3-1.2 [facility] Comment on above: Performed By: #### C P, CBC #### [facility] [address] [place], [place] [phone] [employer]: Robert Casiano MD #### GLYHGB #### [address] [address] [employer] Associate: Ivan Perez MD BUN/CRE Ratio 28 High 9-20 [facility] Comment on above: Performed By: #### C P, CBC #### [facility] [address] [place], [place] [phone] [employer]: Robert Casiano MD #### GLYHGB #### [address] [place], [place] [phone] [employer]: Iavn Perez MD Calcium [Mass/Vol] 9.1 mg/dL Normal 8.6-10.4 [facility] Comment on above: Performed By: #### C P, CBC #### [facility] [address] [place] [address] [employer]: Robert Casiano MD #### GLYHGB #### [address] [phone] [employer]: Ivan Perez MD Chloride [Moles/Vol] 108 mmol/L High 98-107 [facility] Comment on above: Performed By: #### C P, CBC #### [facility] [address] [place] [address] [employer]: Robert Casiano MD #### GLYHGB #### [address] [phone] [employer]: Ivan Perez MD CO2 [Moles/Vol] 24 mmol/L Normal 20-31 [facility] Comment on above: Performed By: #### C P, CBC #### [facility] [address] [place], [place] [phone] [employer]: Robert Casiano MD #### GLYHGB #### [address] [address] [employer]: Ivan Perez MD Creatinine [Mass/Vol] 0.6 mg/dL Normal 0.5-0.9 [facility] Comment on above: Performed By: #### C P, CBC #### [facility] [address] [place], [place] [phone] [employer]: Robert Casiano MD #### GLYHGB #### [address] [place] [address] [employer]: Ivan Perez MD GFR/1.73 sq M.predicted among non-blacks MDRD (S/P/Bld) [Vol rate/Area] mL/min/{1.73_m2} Normal >60 [facility] Comment on above: Result Comment: These [...] Performed By: #### C P, CBC #### [address] [place] [address] [employer]: Robert Casiano MD #### GLYHGB #### [address] [address] [employer]: Ivan Perez MD Glucose [Mass/Vol] 90 mg/dL Normal 70-99 [facility] Comment on above: Performed By: #### C P, CBC #### [address] [place], [place] [phone] [employer]: Robert Casiano MD #### GLYHGB #### [address] [address] [employer]: Ivan Perez MD Potassium [Moles/Vol] 4.2 mmol/L Normal 3.7-5.3 [facility] Comment on above: Performed By: #### C P, CBC #### [address] [place], [place] [phone] [employer]: Robert Casiano MD #### GLYHGB #### [address] [address] [employer]: Ivan Perez MD Protein [Mass/Vol] 7.3 g/dL Normal 6.4-8.3 [facility] Comment on above: Performed By: #### C P, CBC #### [facility] [address] [place], [place] [phone] [employer]: Robert Casiano MD #### GLYHGB #### [address] [phone] [employer]: Ivan Perez MD Sodium [Moles/Vol] 144 mmol/L Normal 135-144 [facility] Comment on above: Performed By: #### C P, CBC #### [facility] [address] [place], [place] [phone] [employer]: Robert Casiano MD #### GLYHGB #### [address] [phone] [employer]: Ivan Perez MD Urea nitrogen [Mass/Vol] 17 mg/dL Normal 6-20 [facility] Comment on above: Performed By: #### C P, CBC #### [address] [place], [place] [phone] [employer]: Robert Casiano MD #### GLYHGB #### [address] [address] [employer] Associate: Ivan Perez MD Hemoglobin A1Con 10-20-2023 Glucose [Mass/Vol] 105 mg/dL Normal [facility] Comment on above: Result Comment: The ADA and AACC recommend providing the estimated average glucose result to permit better patient understanding of their HBA1c result. Performed By: #### C P, CBC #### [facility] [address] [place], [place] [phone] [employer]: Robert Casiano MD #### GLYHGB #### [address] [address] [employer]: Ivan Perez MD HbA1c (Bld) [Mass fraction] 5.3 % Normal 4.0-6.0 [facility] Comment on above: Performed By: #### C P, CBC #### [facility] [address] [place] [address] [employer] Associate: Robert Casiano MD #### GLYHGB #### [address] [address] [employer] Associate: Ivan Perez MD Lipid Profileon 10-20-2023 Cholesterol [Mass/Vol] 163 mg/dL Normal <200 [facility] Comment on above: Result Comment: Cholesterol Guidelines: <200 Desirable 200-240 Borderline >240 Undesirable Performed By: #### L IPR #### [address] [address] [employer] Associate: Ivan Perez MD Cholesterol in HDL [Mass/Vol] 44 mg/dL Normal >40 [facility] Comment on above: Result Comment: HDL Guidelines: <40 Undesirable 40-59 Borderline >59 Desirable Performed By: #### L IPR #### [address] [address] [employer]: Ivan Perez MD Cholesterol in LDL [Mass/Vol] 100 mg/dL Normal 0-130 [facility] Comment on above: Result Comment: LDL Guidelines: <100 Desirable 100-129 Near to/above Desirable 130-159 Borderline >159 Undesirable Direct (measured) LDL and calculated LDL are not interchangeable tests. Performed By: #### L IPR #### [address] [address] [employer]: Ivan Perez MD Cholesterol.total/Ch olesterol in HDL [Mass ratio] 3.7 {ratio} Normal <5 [facility] Comment on above: Performed By: #### L IPR #### [address] [address] [employer]: Ivan Perez MD Triglyceride [Mass/Vol] 94 mg/dL Normal <150 [facility] Comment on above: Result Comment: Triglyceride Guidelines: <150 Desirable 150-199 Borderline 200-499 High >499 Very high Based on AHA Guidelines for fasting triglyceride, June 2012. Performed By: #### L IPR #### [facility] [address] [place], [place] [phone] [employer]: Ivan Perez MD [place] 07-11-2023 ALT [Catalytic activity/Vol] 32 U/L Normal 5-33 [facility] Comment on above: Performed By: #### A ST, ALT #### [facility] [address] [address] [employer] Associate: Robert Casiano MD [place]i 07-11-2023 AST [Catalytic activity/Vol] 23 U/L Normal <32 [facility] Comment on above: Performed By: #### A ST, ALT #### [facility] [address] [address] [employer] Associate: Robert Casiano MD TSH w/reflex to FT4on 2022 Thyroid Stim. Horm. 2.14 uIU/mL Normal 0.30-5.00 [facility] Comment on above: Performed By: #### T SHX #### [facility] [address] [address] [employer] Associate: Robert Casiano MD Glucose, Fastingon Glucose [Mass/Vol] 77 mg/dL 70 - 99 mg/dL [facility] Lipid Panelon 04-18-2022 Cholesterol [Mass/Vol] 194 mg/dL NINF - 200 mg/dL [facility] Comment on above: Cholesterol Guidelines: <200 Desirable 200-240 Borderline >240 Undesirable Cholesterol in HDL [Mass/Vol] 47 mg/dL 40 - PINF mg/dL [facility] Comment on above: HDL Guidelines: <40 Undesirable 40-59 Borderline >59 Desirable Cholesterol in LDL [Mass/Vol] 129 mg/dL 0 - 130 mg/dL [facility] Comment on above: LDL Guidelines: <100 Desirable 100-129 Near to/above Desirable 130-159 Borderline >159 Undesirable Direct (measured) LDL and calculated LDL are not interchangeable tests. Cholesterol.total/Ch olesterol in HDL [Mass ratio] 4.1 {ratio} NINF - 5 [facility] Triglyceride [Mass/Vol] 89 mg/dL NINF - 150 mg/dL [facility] Comment on above: Triglyceride Guidelines: <150 Desirable 150-199 Borderline 200-499 High >499 Very high Based on AHA Guidelines for fasting triglyceride, June 2012. [employer] Glucose, FastingOrdered By: Gunnar Palacios on 04-18-2021 Glucose [Mass/Vol] 85 mg/dL 70 - 99 mg/dL [facility] Phone: [facility] Phone: Lipid PanelOrdered By: Wesley Palacios on 04-18-2021 Cholesterol [Mass/Vol] 180 mg/dL <200 [employer] Phone: Comment on above: Cholesterol Guidelines: <200 Desirable 200-240 Borderline >240 Undesirable Cholesterol in HDL [Mass/Vol] 45 mg/dL >40 [employer] Phone: Comment on above: HDL Guidelines: <40 Undesirable 40-59 Borderline >59 Desirable Cholesterol in LDL [Mass/Vol] 113 mg/dL 0 - 130 mg/dL [employer] Phone: Comment on above: LDL Guidelines: <100 Desirable 100-129 Near to/above Desirable 130-159 Borderline >159 Undesirable Direct (measured) LDL and calculated LDL are not interchangeable tests. Cholesterol in VLDL [Mass/Vol] NOT REPORTED 1 - 30 mg/dL [employer] Phone: Cholesterol.total/Ch olesterol in HDL [Mass ratio] 4 {ratio} <5 [employer] Phone: Triglyceride [Mass/Vol] 112 mg/dL <150 [employer] Phone: Comment on above: Triglyceride Guidelines: <150 Desirable 150-199 Borderline 200-499 High >499 Very high Based on AHA Guidelines for fasting triglyceride, June 2012. [facility] Work Phone: Glucose, Fastingon 9 Glucose [Mass/Vol] 106 mg/dL High 70 - 99 mg/dL [place], [place] Interpretation and review of laboratory results Abnormal [place], [place] Insulin, Totalon 07-31-2019 INR Coag (Bld) [Relative time] [place], [place] Comment on above: Fastin.6-24.9 30 min: 20-112 60 min: 29-88 90 min: 26-84 120 min: 22-79 Insulin 44.5 mU/L [place], [place] Insulin Comment NOT REPORTED [facility] Radha [place], [place] TSHon 07-31-2019 TSH Qn 2.26 m[IU]/L [place], [place] Vital Signs Date Time Vital Sign Value Performing Clinician Brennani tracy 07-12-2024 14:56-0400 Body mass index (BMI) [Ratio] 37.51 kg/m2 Deborah Merrill PA Work Phone: [facility] 07-12-2024 14:56-0400 Body weight 99.11 kg Deborah Merrill PA Work Phone: [facility] 07-12-2024 14:56-0400 Diastolic blood pressure 80 mm[Hg] Deborah Merrill PA Work Phone: [facility] 07-12-2024 14:56-0400 Systolic blood pressure 120 mm[Hg] Deborah Merrill PA Work Phone: [facility] 06-30-2024 14:49-0400 Body mass index (BMI) [Ratio] 37.49 kg/m2 Deborah Merrill PA Work Phone: [facility] 06-30-2024 14:49-0400 Body weight 99.07 kg Deborah Merrill PA Work Phone: [facility] 06-30-2024 14:49-0400 Diastolic blood pressure 78 mm[Hg] Deborah Merrill PA Work Phone: [facility] 06-30-2024 14:49-0400 Systolic blood pressure 116 mm[Hg] Deborah Desirae PA Work Phone: [facility] Encounters Encounter Date Encounter Type Care Provider Facility Start: 07-28-2024 End: 07-28-2024 Orders Only Tomeka Nolasco RN [facility] Comment on above: History of pulmonary embolus (PE) (Primary Dx); Impaired glucose tolerance during ; Poor growth affecting management of mother in second trimester, single or unspecified fetus; Obesity affecting , antepartum, unspecified obesity type; growth restriction antepartum Start: 07-22-2024 End: 07-22-2024 [facility] Start: 07-16-2024 End: 07-16-2024 Office outpatient visit 40 minutes Theodore King MD Work Phone: [facility] Comment on above: History of pulmonary embolism (Primary Dx); 30 weeks gestation of ; Impaired glucose tolerance during Start: 07-16-2024 End: 07-16-2024 [facility] Start: 07-12-2024 End: 07-12-2024 ambulatory DEBORAH MERRILL Not Available Start: 07-12-2024 End: 07-12-2024 flow sheet Deborah ELIZONDO Work Phone: [facility] Comment on above: Third trimester preg bin; 30 weeks gestation of ; Poor growth affecting management of mother in first trimester, single or unspecified fetus Start: 07-12-2024 End: 07-12-2024 Bamboo flowsheet Deborah ELIZONDO Work Phone: [facility] Start: 07-12-2024 End: 07-12-2024 Bamboo flowsheet Deborah ELIZONDO Work Phone: [facility] Start: 07-06-2024 End: 07-06-2024 [facility] Start: 06-30-2024 End: 06-30-2024 ambulatory DEBORAH MERRILL Not Available Start: 06-30-2024 End: 06-30-2024 flow sheet Deborah ELIZONDO Work Phone: [facility] Comment on above: Second trimester pre gnancy; 28 weeks gestation of Start: 06-30-2024 End: 06-30-2024 Bamboo flowsheet Deborah ELIZONDO Work Phone: [facility] Start: 06-30-2024 End: 06-30-2024 Bamboo flowsheet Deborah ELIZONDO Work Phone: [facility] Start: 06-26-2024 End: 06-26-2024 Clinisync Result Encounter Екатерина Nolan DO Work Phone: [facility] Unsolicited Start: 06-26-2024 End: 06-26-2024 Clinisync Result Encounter Екатерина Nolan DO Work Phone: [facility] Unsolicited Start: 06-23-2024 End: 06-23-2024 ambulatory ЕКАТЕРИНА R [facility] Start: 06-07-2024 End: 06-07-2024 ambulatory [facility] Start: 06-02-2024 End: 06-02-2024 ambulatory DEBORAH MERRILL Not Available Start: 06-01-2024 End: 06-01-2024 ambulatory [facility] Start: 05-28-2024 End: 05-28-2024 ambulatory [facility] Start: 05-18-2024 End: 05-18-[address] [facility] Start: 05-05-2024 End: 05-05-2024 ambulatory ЕКАТЕРИНА NOLAN Not Available Start: 05-05-2024 End: 05-05-2024 ambulatory [facility] Start: 05-05-2024 End: 05-05-[address] [facility] Start: 04-21-2024 End: 04-21-2024 ambulatory [facility] Start: 04-07-2024 End: 04-07-2024 ambulatory [facility] Start: 03-31-2024 End: 03-31-2024 ambulatory ЕКАТЕРИНА NOLAN Not Available Start: 03-09-2024 End: 03-09-2024 ambulatory ЕКАТЕРИНА NOLAN Not Available Start: 03-03-2024 End: 03-03-2024 ambulatory ЕКАТЕРИНА NOLAN Not Available Start: 02-20-2024 End: 02-20-2024 ambulatory ЕКАТЕРИНА NOLAN Not Available Start: 02-16-2024 End: 02-16-2024 ambulatory ЕКАТЕРИНА NOLAN Not Available Start: 10-30-2023 End: 10-30-2023 ambulatory ЕКАТЕРИНА NOLAN Not Available Start: 10-20-2023 End: 10-21-2023 ambulatory [facility] Start: 07-11-2023 End: 07-12-2023 ambulatory EMILY Oneal [facility] Start: 05-26-2023 End: 05-27-2023 ambulatory EMILY Oneal [facility] Start: 04-18-2022 End: 04-18-2022 Subsequent hospital visit by physician Gunnar Palacios MD Work Phone: [facility] Comment on above: Screening for diabet es mellitus; Screening cholesterol level Start: 01-30-2022 End: 01-30-2022 Patient encounter procedure Gunnar aPlacios MD Work Phone: [facility] Start: 01-30-2022 End: 01-30-2022 Subsequent hospital visit by physician Gunnar Palacios MD Work Phone: [facility] Comment on above: Women's annual routi ne gynecological examination Start: 04-18-2021 End: 04-18-2021 Patient encounter status Gunnar Palacios MD Work Phone: [facility] Start: 04-18-2021 End: 04-18-2021 Subsequent hospital visit by physician Gunnar Palacios MD Work Phone: [facility] Comment on above: Wellness examination Start: 07-31-2019 End: 07-31-2019 Subsequent hospital visit by physician Gunnar [facility] Comment on above: Irregular menses Procedures [...] st gtt 3 specimens Olga Osborne Chuck David Work Phone: Start: 07-31-2019 Assay of thyroid stimulating hormone tsh Olga Moyag Work Phone: Plan of Treatment Date Care Activity Detail Author Start: 05-05-2025 Tobacco Screening Tobacco Screening [facility] Start: 04-21-2025 Adult BMI Screening Adult BMI Screen ing [facility] Start: 01-30-2025 Screening for malign ant neoplasm of cervix Pap smear [facility] Start: 08-31-2024 End: 08-31-2024 Patient encounter procedure 08/31/2024 3:15 PM EST Appointment [facility] - Ultrasound [address] [place] [address] [facility] - [facility] Start: 08-23-2024 End: 08-23-2024 Telemedicine consultation with patient 08/23/2024 9:45 AM EST Telemedicine Maternal- Medicine at [facility] [address] [place] [address] Theodore King MD [address] [place] [address] [facility] at [facility] Start: 08-20-2024 End: 08-20-2024 Patient encounter procedure 08/20/2024 8:00 AM EST Appointment [facility] [place] [id number] [facility] [place] [address] [facility] [place] Start: 08-19-2024 End: 08-19-2024 Telemedicine consultation with patient 08/19/2024 2:30 PM EST Telemedicine Maternal- Medicine at [facility] [address] [place] [phone] Theodore King MD [address] [place] [address] [facility]- Medicine at [facility] Start: 08-04-2024 End: 08-04-2024 ambulatory 08/04/2024 9:30 AM EST Support Visit Maternal- Medicine at [facility] [address] [place] [phone] Theodore King MD [address] [place] [address] Lili Davis RN [address], [address] [place] [address] [place] [address] M[facility]- Medicine at [facility] Start: 08-03-2024 End: 08-03-2024 Patient encounter procedure 08/03/2024 3:00 PM EST Appointment [facility] [address] [place] [address] [facility] [place] Start: 07-26-2024 End: 07-26-2024 Patient encounter procedure 07/26/2024 3:00 PM EST Routine [facility] [address] [place] [phone] Deborah Merrill PA [address] [place] [address] [facility] Start: 07-22-2024 End: 07-22-2024 Patient encounter procedure 07/22/2024 10:30 AM EST Appointment [facility] [address] [place] [address] [facility] [place] Start: 07-12-2024 End: 07-12-2024 Patient encounter procedure 07/12/2024 2:40 PM EDT Routine [facility] [address] [place] [phone] Deborah Merrill PA [address] [place] [address] [facility] Start: 07-12-2024 End: 07-12-2025 US biophysical profile w non stress test US biophysical profile w non stress test Imaging Routine Third trimester Poor growth affecting management of mother in first trimester, single or unspecified fetus Expected: 07/12/2024 (Approximate), Expires: 07/12/2025 [facility] Work Phone: Comment on above: Expected: 07/12/2024 (Approximate), Expires: 07/12/2025 Start: 06-30-2024 End: 06-30-2024 Patient encounter procedure 06/30/2024 2:30 PM EDT Routine [facility] [address] [place] [address] Deborah Merrill PA [address] [place] [address] [facility] Start: 05-16-2024 Influenza vaccination Influenza Vacc ine [facility] Start: 10-06-2023 DTaP,Tdap and Td Vaccines (7 - Td or Tdap) DTaP,Tdap and Td Vaccines (7 - Td or Tdap) [facility] Start: 10-06-2023 DTaP/Tdap/Td vaccine (7 - Td or Tdap) DTaP/Tdap/Td vaccine (7 - Td or Tdap) [facility] Start: 10-06-2023 DTaP/Tdap/Td vaccine (7 - Td) DTaP/Tdap/Td vaccine (7 - Td) [place], [place] Start: 02-05-2023 End: 02-05-2023 Patient encounter procedure 02/05/2023 Office Visit Obstetrics and Gynecology Sarah Horn PA-C [address] [place] [address] [facility] Part of [facility] Start: 05-16-2022 Influenza vaccination [facility] Start: 04-19-2022 End: 04-19-2022 Patient encounter procedure 04/19/2022 Office Visit Primary Care Gunnar Palacios MD [address] [place] [id number] [facility] Start: 04-16-2022 Depression Screen Depression Screen [facility] Start: 05-16-2021 Influenza vaccination Flu vaccine (# 1) [facility] Work Phone: Start: 08-03-2019 End: 08-03-2019 Office Visit 08/03/2019 Office Visit Obstetrics and Gynecology [facility] Start: 05-16-2019 Influenza vaccination Flu vaccine (# 1) [place], [place] Start: 04-02-2017 Chlamydia screen Chlamydia screen [place], [place] Start: 04-02-2017 Screening for Chlamy daniella trachomatis Chlamydia screen [facility] Start: 2017 Cervical cancer screen Cervical canc er screen [place], [place] Start: 2017 Screening for malign ant neoplasm of cervix [facility] Start: 2014 Adult BMI Follow Up Plan Adult BMI Follow Up Plan [facility] Start: 2014 Hepatitis C screening Hepatitis C sc [facility] Start: 2011 HIV screen HIV screen [place], [place] Start: 2008 COVID-19 Vaccine (1) COVID-19 Vaccin e (1) [facility] Work Phone: Start: 2008 Depression Screening Depression Scre ening [facility] Start: 2007 HPV vaccine (1 - 2-d ose series) HPV vaccine (1 - 2-dose series) [facility] Start: 2007 HPV vaccine (1 - Fem rahul 2-dose series) HPV vaccine (1 - Female 2-dose series) [place], [place] Start: 2001 COVID-19 Vaccine (1) COVID-19 Vaccin e (1) [facility] Start: 1996 COVID-19 Vaccine (#1) COVID-19 Vacci ne (#1) [facility] Start: 1996 Hepatitis C screening Hepatitis C sc [facility] Work Phone: End: 07-16-2025 Anti cardiolipin AB IgG IgA IgM Anti cardiolipin AB IgG IgA IgM Lab Routine History of pulmonary embolism 30 weeks gestation of 1 Occurrences starting 07/16/2024 until 07/16/2025 [employer] Phone: Comment on above: 1 Occurrences starti ng 07/16/2024 until 07/16/2025 End: 07-16-2025 Anti thrombin 3 funct Anti thrombin 3 funct Lab Routine History of pulmonary embolism 30 weeks gestation of 1 Occurrences starting 07/16/2024 until 07/16/2025 [facility] Comment on above: 1 Occurrences starti ng 07/16/2024 until 07/16/2025 End: 01-30-2022 Cytopathology procedure, preparation of smear, genital source PAP SMEAR Lab Routine Women's annual routine gynecological examination 1 Occurrences starting 01/30/2022 until 01/30/2022 [facility] Work Phone: Comment on above: 1 Occurrences starti ng 01/30/2022 until 01/30/2022 Immunizations Immunization Date Immunization Notes Care Provider Fa cili 06-15-2015 influenza virus vacc ine, whole virus [facility] 06-15-2015 influenza virus vacc ine, unspecified formulation Theodore King MD Work Phone: [facility] 10-06-2013 hepatitis A vaccine, unspecified formulation [facility] , [place] 10-06-2013 tetanus toxoid, redu linda diphtheria toxoid, and acellular pertussis vaccine, adsorbed [facility] [place] 05-25-2013 varicella virus vaccine [facility], [place] 02-25-2013 hepatitis A vaccine, unspecified formulation [facility] [place] 02-25-2013 meningococcal polysaccharide (groups A, C, Y and W-135) diphtheria toxoid conjugate vaccine (MCV4P) [facility], [place] 03-05-2001 diphtheria, tetanus toxoids and acellular pertussis vaccine [facility], [place] 03-05-2001 measles, mumps and rubella virus vaccine [facility], [place] 03-05-2001 poliovirus vaccine, inactivated [facility] 07-14-1997 diphtheria, tetanus toxoids and acellular pertussis vaccine [facility], [place] 05-09-1997 measles, mumps and rubella virus vaccine [facility], [place] 05-09-1997 varicella virus vaccine [facility], [place] 1996 diphtheria, tetanus toxoids and acellular pertussis vaccine [facility], [place] 1996 hepatitis B vaccine, unspecified formulation [facility] [place] 1996 poliovirus vaccine, inactivated [facility], [place] 1996 diphtheria, tetanus toxoids and acellular pertussis vaccine [facility], [place] 1996 haemophilus influenz ae type b vaccine, PRP-OMP conjugate [facility], [place] 1996 poliovirus vaccine, inactivated [facility] 1996 diphtheria, tetanus toxoids and acellular pertussis vaccine [facility] 1996 haemophilus influenz ae type b vaccine, PRP-OMP conjugate [facility] 1996 poliovirus vaccine, inactivated [facility] 1996 haemophilus influenz ae type b vaccine, PRP-OMP conjugate [facility], [place] 1996 hepatitis B vaccine, unspecified formulation [facility] [place] 1996 haemophilus influenz ae type b vaccine, PRP-OMP conjugate [facility] 1996 hepatitis B vaccine, unspecified formulation [facility] [place] Payers Date Payer Category Payer Managed Care Other (unspecified) [employer] [place] [address] [id number] 2023 Private Health Insurance [employer] [id number] 2023 Unknown [employer] [id number] 2023-Present [phone] [address] [address] [place] [address] [id number] 2023 Unknown [id number] 2021 Unknown [id number] 2020 Unknown [id number] .[id number] 2016 Unknown [employer] [facility] EMP xxxxxxxxxxxx 2016-Present [phone] [address] [place] [address] xxxxxxxxxxxx [id number] .[id number] 1996 Unknown [id number] 2.840.1.252702.3.579.2 .173 1996 Unknown [id number] 2.16840.1.103970.3.579.2 .173 1996 Unknown [id number] 2.16840.1.550100.3.579.2 .173 1996 Unknown [id number] 2.16840.1.707022.3.579.2 .1286 1996 Unknown [id number] 2.16840.1.389593.3.579.2 .1286 1996 Unknown [id number] 2.16.840.1.538020.3.579.2 .1285 1996 Unknown [id number] 2.16.840.1.857691.3.579.2 .1258 1996 Unknown [id number] 2.16.840.1.458608.3.579.2 .1258 1996 Unknown [id number] 2.16.840.1.089735.3.579.2 .1258 1996 Unknown [id number] 2.16.840.1.066008.3.579.2 .1258 1996 Unknown [id number] 2.16.840.1.860078.3.579.2 .1258 1996 Unknown [id number] 2.16.840.1.078071.3.579.2 .1258 1996 Unknown [id number] 2.16.840.1.961908.3.579.2 .1258 1996 Unknown [id number] 2.16840.1.442207.3.579.2 .1258 1996 Unknown [id number] 2.16.840.1.046276.3.579.2 .1258 1996 Unknown [id number] 2.16.840.1.103721.3.579.2 .1258 1996 Unknown [id number] 2.16.840.1.836849.3.579.2 .1285 1996 Unknown [id number] 2.16.840.1.469421.3.579.2 .1285 1996 Unknown [id number] 2.16.840.1.047860.3.579.2 .1285 1996 Unknown [id number] 2.16.840.1.032355.3.579.2 .1285 1996 Unknown [id number] 2.16.840.1.504001.3.579.2 .1285 1996 Unknown [id number] 2.16.840.1.311318.3.579.2 .1286 1996 Unknown [id number] 2.16.840.1.885930.3.579.2 .6 1996 Unknown [id number] 2.16.840.1.139954.3.579.2 .1285 1996 Unknown [id number] 2.16.840.1.816192.3.579.2 .1286 1996 Unknown [id number] 2.16.840.1.949960.3.579.2 .1285 1996 Unknown [id number] 2.16.840.1.168659.3.579.2 .1286 Social History Date Type Detail Facility Start: 07-13-2019 End: 03-15-2024 Tobacco smoking status NHIS Never smoker [place], [place] Start: 07-13-2019 End: 01-30-2022 Alcohol intake Current non-drinker of alcohol (finding) [facility] [place] Start: 1996 Sex Assigned At Not on file [place] Start: 04-16-2021 End: 03-15-2024 Tobacco use and exposure Never used [employer] Phone: Start: 04-16-2021 History SDOH Financial 5 [employer] Phone: Start: 04-16-2021 History SDOH Food Worry 1 [employer] Phone: Start: 04-16-2021 History SDOH Transport Med 2 [employer] Phone: Start: 05-05-2024 End: 06-02-2024 Alcoholic beverage intake Ex-drinker (finding) [facility] Start: 02-16-2024 End: 04-07-2024 History of Social function [facility] Start: 02-16-2024 End: 04-07-2024 Tobacco use panel [facility] Start: 12-27-2023 [facility] Start: 1996 Sex assigned at Female [facility] Start: 10-23-2023 Gender identity Identifies as female gender (finding) [facility] Start: 10-23-2023 Sexual orientation Heterosexual (finding) [facility] Within the past 12 months we worried whether our food would run out before we got money to buy more. Never True [facility] Start: 03-11-2024 Sex Female (finding) [facility] Medical Equipment Procedure Code Equipment Code Equipment Origin al Text Equipment Identifier Dates [id number], [id number] Star t: 07-16-2024 End: 07-16-2024 Goals Date Patient Goal Desired Activity /State Personal health goal Clinical Notes 06-30-2024 to 07-28-2024 Telephone Encounter - Tomeka Nolasco RN - 07/28/2024 2:22 PM ESTTelephone Encounter - Tomeka Nolasco RN - 07/28/2024 2:22 PM Yanely King MD - 07/16/2024 11:30 AM EDT Note Date & Type Note Facility 07-28-2024 Miscellaneous Notes Formattin g of this note might be different from the original. Called and spoke with patient, notified her that Dr King would like patient to continue checking blood sugars 4times daily and sending in logs and also wants her to go to [facility] diabetic ed, patient verbalized understanding and was transferred to scheduling to make appointment. documented in this encounter [facility] 07-28-2024 Telephone encount er Note Called and spoke with patient, notified her that Dr King would like patient to continue checking blood sugars 4times daily and sending in logs and also wants her to go to [facility] diabetic ed, patient verbalized understanding and was transferred to scheduling to make appointment. [facility] 07-16-2024 History of Presen t illness Narrative Video Visit via Real-time Synchronous Audiovisual Provider Location: [facility] MATERNAL- MEDICINE AT [address] [facility] [address] Patient Location: Other Patient Location Review Appraiser: None Video Visit Consent Statement: I discussed [...] that there are some limitations compared to [id number] evaluations. We elected to proceed. REASON FOR TELEHEALTH VISIT: History of PE, Subchorionic hematoma, FGR HISTORY OF PRESENT ILLNESS: Barney Marie is a pleasant 29 y.o. at 30w6d due on Estimated Date of Delivery: 09/18/24. 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 She has not had any recurrent [...] speaking comfortably in full sentences OVERALL ASSESSMENT -Barney Beat is a pleasant 29 y.o. at [...] GTT. Patient to send in logs to [facility]. Supplies ordered today. Continue serial growth ultrasounds every 4 weeks through [facility] Continue umbilical artery Dopplers every 2 weeks, through [facility] Recommend ANFS: NST and NICHOLAS weekly starting [...] comorbidities: 34 weeks Delivery method preferred vaginal. [place] C/S for usual obstetrical indications Consider steroids if delivery before 37 weeks. Consider neuro magnesium if delivery before 32 weeks Recommend restarting Lovenox in the period once hemodynamically stable and safe from a anesthesia standpoint, to be continued through 6 weeks DISPOSITION: At this point the patient is in complete care of her fulfillment associate. Patient does have ultrasound and office visit scheduled with us. Thank you for allowing me to participate in the care of Barney Marie. If there any questions please do not hesitate to contact us. Theodore King MD Maternal- Medicine [facility] [address] [facility] 1st [place] [address] [facility], the CDC, and other organizations representing maternal and public health professionals recommend that , , and lactating people and those considering receive the COVID-19 vaccination. Vaccination is the best method to reduce maternal and complications of SARS-CoV-2 infection. This document was created with [employer] technology. Though I make every effort to review the dictation as it is transcribed, on occasion the spoken word can be misinterpreted by the technology leading to inappropriate words, phrases, or sentences. This note is addressed to the requesting provider as a consultation for clinical guidance. Specific medical abbreviations are occasionally used and those are generally approved by the [place]?Board of?Obstetrics and?Gynecology?as well as?K[employer] s abbreviations. The above plan of care was based solely on the diagnoses for which a consultation was requested. ?More frequent testing may be indicated based on her other medical/obstetrical conditions. The management of other or medical conditions is beyond the scope of requested consultation and will continue to be followed by the primary fulfillment associate or primary care provider. Note to patient: The Cures Act makes medical notes like these [...] procedures Referring and communicating with other health clinical manager home care (not separately reported) Documenting clinical information in the electronic or other health record documented in this encounter [facility] [employer] 07-12-2024 History of Presen t illness Narrative Reason for Appointment: Patient ID: Barney Marie is a 29 y.o. female who presents for Routine Visit Patient presents today for Return OB appointment. MEDICATIONS Current Outpatient Medications Medication Instructions Enoxaparin Sodium 40 mg, Subcutaneous, Daily [id number]-[id number] ( 1 + IRON PO) Oral sertraline [...] of: CARO Singh documented in this encounter [facility] 06-30-2024 History of Presen t illness Narrative Reason for Appointment: Patient ID: Barney Marie is a 29 y.o. female who presents for Routine Visit Patient presents today for Return OB appointment. MEDICATIONS Current Outpatient Medications Medication Instructions Enoxaparin Sodium 40 mg, Subcutaneous, Daily [id number]-Zn-FA ( 1 + IRON PO) Oral sertraline [...] Singh documented in this encounter [facility] Evaluation note Diagnosis Wellness examination documented in this encounter [employer] Phone: evaluation note* Diagnosis Women's annual routine gynecological examination documented in this encounter [employer] Phone: evaluation note* Diagnosis Screening for diabetes mellitus Screening cholesterol level Screening for lipoid disorders documented in this encounter ANDR[facility]S ONEAL [employer] Phone: evaluation note* Diagnosis Second trimester state, incidental 28 weeks gestation of [facility] Diagnosis Third trimester state, incidental 30 weeks gestation of Poor growth affecting management of mother in first trimester, single or unspecified fetus documented [facility]* Diagnosis History of pulmonary embolism- Primary Personal history of venous thrombosis and embolism 30 weeks gestation of Impaired glucose tolerance during [facility] Diagnosis History of pulmonary embolus (PE)- Primary Impaired glucose tolerance during Poor growth affecting management of mother in second trimester, single or unspecified fetus Obesity affecting , antepartum, unspecified obesity type growth restriction antepartum documented [facility] filed[facility] Assessments Diagnosis Irregular menses Irregular menstrual cycle Advance Directives Documents on File Type Date Recorded 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 Advance Directives and Living Will Power of Emu Farmer Latest Code Status on File Code Status Date Activated Date Inactivated Comments Full Code 09/13/2015 8:45 PM 09/14/2015 5:05 PM Documents on File Type Date Recorded 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 ACP-Advance Directive ACP-Power of Emu Farmer Summary Purpose Family History No Family History Records FoundNo Family History Records FoundNo Family History Records FoundNo Family History Records FoundNo Family History Records Found Additional Source Comments Care Teams (unrecognized sec tion and content) Measurement Coordinator Relationship Specialty Start Date End Date Gunnar Palacios MD [address] [place] [id number] PCP - General Family Medicine 09/22/15 Measurement Coordinator Relationship Specialty Start Date End Date Gunnar Palacios MD [address] [place] [id number] PCP - General Family Medicine 09/22/15 INFORMATION SOURCE (unrecogn ized section and content) DATE CREATED AUTHOR 10/21/2023 [facility] DATE CREATED AUTHOR AUTHOR'S ORGANIZ ATION 06/09/2024 [facility] DATE CREATED AUTHOR AUTHOR'S ORGANIZ ATION 07/13/2024 [facility] DATE CREATED AUTHOR AUTHOR'S ORGANIZ ATION 07/18/2024 [facility] DATE CREATED AUTHOR AUTHOR'S ORGANIZ ATION 07/24/2024 [facility] Reason for Visit (unrecogniz ed section [...] BE BASED ON THE PRIMARY CLINICAL RECORDS. [employer] provides no warranty or guarantee of the accuracy or completeness of information in this document.
[2024-07-29 14:51] VITALS: BP 130/72; PULSE 93
== END 2024-07-29 16:00 | disposition home or self-care (01) ==
LOC: FBCO 08:19 → FBC 14:44
PROVIDERS: PCP Nurse Practitioner Women's Health; Visit Provider Obstetrics & Gynecology
DX: O36.5930 Maternal care for other known or suspected poor fetal growth, third trimester, not applicable or unspecified (principal)
CPT/HCPCS: 59025

== ENCOUNTER 2024-08-02 06:35 | Outpatient (OUT) | payer OTHER, SELFPAY ==
--- OUTSIDE RECORDS SUMMARY | 2024-08-02 06:39 | XMS_ITS | CCD ---
Author Organization [facility] Care Team Providers Care Grain Farmer Name Role Phone Philip Luis Antoniofrancdmitry Nataliya Primary Care Provider EMILY WARREN Primary Care Unavailable EMILY WARREN Referring Unavailable EMILY WARREN Referring Unavailable EMILY WARREN Primary Care Unavailable EMILY WARREN Referring Unavailable EMILY WARREN Primary Care Unavailable KING, THEODORE Referring Unavailable KING, THEODORE Referring Unavailable MOUSSA, YADI NADIM Referring Unavailable Unavailable Primary Care Provider Unavailabl e Unavailable Primary Care Provider Unavailabl e NOLAN, [...] NOLAN, ЕКАТЕРИНА R Referring Unavailable NOLAN, ЕКАТЕРИНА Attending Unavailable NOLAN, ЕКАТЕРИНА Attending Unavailable NOLAN, ЕКАТЕРИНА Attending Unavailable NOLAN, ЕКАТЕРИНА Attending Unavailable NOLAN, ЕКАТЕРИНА Attending Unavailable NOLAN, ЕКАТЕРИНА Attending Unavailable DESIRAE, DEBORAH Attending Unavailable DESIRAE, DEBORAH Attending Unavailable DESIRAE, DEBORAH Attending Unavailable DESIRAE, DEBORAH Attending Unavailable Allergies Allergy Classification Reported Allergen(s) Allergy Type Date of Onset Reaction(s) Facility Cephalosporins (antibiotic) (1 source) cefprozil Drug Allergy 3 [facility] (9 sources) cefprozil; Translations: [CEFPROZIL] Drug Allergy 3 [place], [place] (7 sources) Cefprozil Propensity to adverse reactions [facility] Medications Current Medications Medication Drug Class(es) [...] fum/folic/dha (-1 ORAL) Take by mouth. Active Akywxkmr-Pag-Jk-FA ( 1 + IRON PO) (7 sources) Kohqtshs-Jqj-Em-FA ( 1 + IRON PO) Take by mouth Active sertraline 25 mg oral tablet (10 sources) Serotonin Reuptake Inhibitor Start: 4 take [...] UA Negative Negative - 4(70) +++ mg/dL [facility] Blood, UA Negative Negative - 50 Aaron/mcL [facility] Clarity, UA Clear [facility] Color, UA Yellow [facility] Glucose, UA Negative Negative - 1999(110) ++++ mg/dL [facility] Interpretation and review of laboratory results Abnormal [facility] Ketones, UA Positive Negative - 160(16) ++++ mg/dL [facility] Comment on above: trace Leukocytes, UA Negative Negative - 500+++ Mikael/mcL [facility] Nitrite, UA Negative Negative - Positive [facility] pH, UA 6 5 - 9 [facility] e Protein, UA Negative Negative - 1999(20) ++++ mg/dL [facility] Spec Grav, UA 1.025 1 - 1.03 [facility] Urobilinogen, UA 0.2 0.2 - 12 mg/dL [facility] Urinalysis macro (dipstick) panel (U)on 06-30-2024 Bilirubin, UA Negative Negative - 4(70) +++ mg/dL [facility] Blood, UA Negative Negative - 50 Aaron/mcL [facility] Clarity, UA Clear [facility] Color, UA Yellow [facility] Glucose, UA Negative Negative - 1999(110) ++++ mg/dL [facility] Interpretation and review of laboratory results Abnormal [facility] Ketones, UA Positive Negative - 160(16) ++++ mg/dL [facility] Leukocytes, UA Negative Negative - 500+++ Mikael/mcL [facility] Nitrite, UA Negative Negative - Positive [facility] pH, UA 6.5 5 - 9 [facility] e Protein, UA Negative Negative - 2000(20) ++++ mg/dL [facility] Spec Grav, UA 1.03 1 - 1.03 [facility] Urobilinogen, UA 1.0 0.2 - 12 mg/dL [facility] GLUCOSE TOLERANCE 3 HOURon 1 GLUCOSE TOLERANCE 3 HOUR High mg/dL [facility] Comment on above: GLU FAST 93 (<95) C ol: 06/26/24 0657 GLU 1HR 131 (<180) Col: 06/26/24 0811 GLU 2HR 158H (<155) Col: 06/26/24 0905 GLU 3HR 109 (<140) Col: 06/26/24 1005 Interpretation and review of laboratory results Abnormal [facility] e CBCon 10-20-2023 Erythrocyte distribution width (RBC) [Ratio] 13.3 % Normal 11.8-14.4 [facility] Comment on above: Performed By: #### C P, CBC #### [facility] [address] [place] [address] [place] [address] Range Rider: Robert Casiano MD #### GLYHGB #### [facility] [employer] [address] [place] [address] [id number] Range Rider: Ivan Perez MD Hematocrit (Bld) [Volume fraction] 42.6 % Normal 36.3-47.1 [facility] Comment on above: Performed By: #### C P, CBC #### [facility] [address] [place] [address] [place] [address] Range Rider: Robert Casiano MD #### GLYHGB #### [id number] [place], [place] [id number] Range Rider: Ivan Perez MD Hemoglobin (Bld) [Mass/Vol] 13.6 g/dL Normal 11.9-15.1 [facility] Comment on above: Performed By: #### C P, CBC #### [address] [place] [address] Range Rider: Robert Casiano MD #### GLYHGB #### [address] [phone] Range Rider: Ivan Perez MD MCH (RBC) [Entitic mass] 28.3 pg Normal 25.2-33.5 [facility] Comment on above: Performed By: #### C P, CBC #### [address] [place] [address] Range Rider: Robert Casiano MD #### GLYHGB #### [place] [id number] Range Rider: Ivan Perez MD MCHC (RBC) [Mass/Vol] 31.9 g/dL Normal 28.4-34.8 [facility] Comment on above: Performed By: #### C P, CBC #### [address] [place] [id number] Range Rider: Robert Casiano MD #### GLYHGB #### [place] [id number] Range Rider: Ivan Perez MD MCV (RBC) [Entitic vol] 88.6 fL Normal 82.6-102.9 [facility] Comment on above: Performed By: #### C P, CBC #### [address] [place] [address] Range Rider: Robert Casiano MD #### GLYHGB #### [address] [id number] Range Rider: Ivan Perez MD NRBC Automated 0.0 per 100 WBC Normal 0.0 [facility] Comment on above: Performed By: #### C P, CBC #### [facility] [address] [place] [address] Range Rider: Robert Casiano MD #### GLYHGB #### [address] [place], [place] [id number] Range Rider: Ivan Perez MD Platelet mean volume (Bld) [Entitic vol] 9.1 fL Normal 8.1-13.5 [facility] Comment on above: Performed By: #### C P, CBC #### [facility] [address] [place] [id number] Range Rider: Robert Casiano MD #### GLYHGB #### [address] [id number] Range Rider: Ivan Perez MD Platelets (Bld) [#/Vol] 322 10*3/uL Normal 138-453 [facility] Comment on above: Performed By: #### C P, CBC #### [facility] [address] [place] [id number] Range Rider: Robert Casiano MD #### GLYHGB #### [address] [id number] Range Rider: Ivan Perez MD RBC (Bld) [#/Vol] 4.81 10*6/uL Normal 3.95-5.11 [facility] Comment on above: Performed By: #### C P, CBC #### [facility] [address] [place], [place] [id number] Range Rider: Robert Casiano MD #### GLYHGB #### [address] [place], [place] [phone] Range Rider: Ivan Perez MD WBC (Bld) [#/Vol] 7.9 10*3/uL Normal 3.5-11.3 [facility] Comment on above: Performed By: #### C P, CBC #### [facility] [address] [place] [address] Range Rider: Robert Casiano MD #### GLYHGB #### [address] [address] Range Rider: Ivan Perez MD Comp Metabolic Profon 2023 Albumin [Mass/Vol] 4.3 g/dL Normal 3.5-5.2 [facility] Comment on above: Performed By: #### C P, CBC #### [facility] [address] [place] [address] Range Rider: Robert Casiano MD #### GLYHGB #### [address] [address] Range Rider: Ivan Perez MD Albumin/Glob Ratio 1.4 Normal 1.0-2.5 [facility] Comment on above: Performed By: #### C P, CBC #### [facility] [address] [place] [address] Range Rider: Robert Casiano MD #### GLYHGB #### [address] [address] Range Rider: Ivan Perez MD Alkaline Phos 49 U/L Normal 35-104 [facility] Comment on above: Performed By: #### C P, CBC #### [facility] [address] [place], [place] [phone] Range Rider: Robert Casiano MD #### GLYHGB #### [address] [address] Range Rider: Ivan Perez MD ALT [Catalytic activity/Vol] 29 U/L Normal 5-33 [facility] Comment on above: Performed By: #### C P, CBC #### [facility] [address] [place], [place] [phone] Range Rider: Robert Casiano MD #### GLYHGB #### [address] [place], [place] [id number] Range Rider: Ivan Perez MD Anion gap [Moles/Vol] 12 mmol/L Normal 9-17 [facility] Comment on above: Performed By: #### C P, CBC #### [facility] [address] [place], [place] [id number] Range Rider: Robert Casiano MD #### GLYHGB #### [address] [phone] Range Rider: Ivan Perez MD AST [Catalytic activity/Vol] 25 U/L Normal <32 [facility] Comment on above: Performed By: #### C P, CBC #### [facility] [address] [place], [place] [phone] Range Rider: Robert Casiano MD #### GLYHGB #### [address] [address] Range Rider: Ivan Perez MD Bilirubin [Mass/Vol] 0.2 mg/dL Low 0.3-1.2 [facility] Comment on above: Performed By: #### C P, CBC #### [facility] [address] [place], [place] [phone] Range Rider: Robert Casiano MD #### GLYHGB #### [address] [address] Range Rider: Ivan Perez MD BUN/CRE Ratio 28 High 9-20 [facility] Comment on above: Performed By: #### C P, CBC #### [facility] [address] [place], [place] [phone] Range Rider: Robert Casiano MD #### GLYHGB #### [address] [place], [place] [id number] Range Rider: Ivan Perez MD Calcium [Mass/Vol] 9.1 mg/dL Normal 8.6-10.4 [facility] Comment on above: Performed By: #### C P, CBC #### [facility] [address] [place], [place] [id number] Range Rider: Robert Casiano MD #### GLYHGB #### [address] [phone] Range Rider: Ivan Perez MD Chloride [Moles/Vol] 108 mmol/L High 98-107 [facility] Comment on above: Performed By: #### C P, CBC #### [address] [place] [phone] Range Rider: Robert Casiano MD #### GLYHGB #### [address] [address] Range Rider: Ivan Perez MD CO2 [Moles/Vol] 24 mmol/L Normal 20-31 [facility] Comment on above: Performed By: #### C P, CBC #### [facility] [address] [place] [address] Dr. [place], [place] [phone] Range Rider: Robert Casiano MD #### GLYHGB #### [address] [address] Range Rider: Ivan Perez MD Creatinine [Mass/Vol] 0.6 mg/dL Normal 0.5-0.9 [facility] Comment on above: Performed By: #### C P, CBC #### [facility] [address] [place], [place] [phone] Range Rider: Robert Casiano MD #### GLYHGB #### [address] [place] [address] Range Rider: Ivan Perez MD GFR/1.73 sq M.predicted among non-blacks MDRD (S/P/Bld) [Vol rate/Area] mL/min/{1.73_m2} Normal >60 [facility] Comment on above: Result Comment: These [...] Performed By: #### C P, CBC #### [address] [place], [place] [id number] Range Rider: Robert Casiano MD #### GLYHGB #### [address] [address] Range Rider: Ivan Perez MD Glucose [Mass/Vol] 90 mg/dL Normal 70-99 [facility] Comment on above: Performed By: #### C P, CBC #### [address] [place], [place] [phone] Range Rider: Robert Casiano MD #### GLYHGB #### [address] [address] Range Rider: Ivan Perez MD Potassium [Moles/Vol] 4.2 mmol/L Normal 3.7-5.3 [facility] Comment on above: Performed By: #### C P, CBC #### [facility] [address] [place] [address] Dr. [place], [place] [phone] Range Rider: Robert Casiano MD #### GLYHGB #### [address] [address] Range Rider: Ivan Perez MD Protein [Mass/Vol] 7.3 g/dL Normal 6.4-8.3 [facility] Comment on above: Performed By: #### C P, CBC #### [facility] [address] [place], [place] [id number] Range Rider: Robert Casiano MD #### GLYHGB #### [address] [phone] Range Rider: Ivan Perez MD Sodium [Moles/Vol] 144 mmol/L Normal 135-144 [facility] Comment on above: Performed By: #### C P, CBC #### [facility] [address] [place] [address] [place] [address] Range Rider: Robert Casiano MD #### GLYHGB #### [address] [phone] Range Rider: Ivan Perez MD Urea nitrogen [Mass/Vol] 17 mg/dL Normal 6-20 [facility] Comment on above: Performed By: #### C P, CBC #### [address] [place] [address] Range Rider: Robert Casaino MD #### GLYHGB #### [address] [phone] Range Rider: Ivan Perez MD Hemoglobin A1Con 10-20-2023 Glucose [Mass/Vol] 105 mg/dL Normal [facility] Comment on above: Result Comment: The ADA and AACC recommend providing the estimated average glucose result to permit better patient understanding of their HBA1c result. Performed By: #### C P, CBC #### [facility] [address] [place] [address] [place] [address] Range Rider: Robert Casiano MD #### GLYHGB #### [address] [phone] Range Rider: Ivan Perez MD HbA1c (Bld) [Mass fraction] 5.3 % Normal 4.0-6.0 [facility] Comment on above: Performed By: #### C P, CBC #### [facility] [address] [place] [address] Range Rider: Robert Casiano MD #### GLYHGB #### [address] [address] Range Rider: Ivan Perez MD Lipid Profileon 10-20-2023 Cholesterol [Mass/Vol] 163 mg/dL Normal <200 [facility] Comment on above: Result Comment: Cholesterol Guidelines: <200 Desirable 200-240 Borderline >240 Undesirable Performed By: #### L IPR #### [address] [address] Range Rider: Ivan Perez MD Cholesterol in HDL [Mass/Vol] 44 mg/dL Normal >40 [facility] Comment on above: Result Comment: HDL Guidelines: <40 Undesirable 40-59 Borderline >59 Desirable Performed By: #### L IPR #### [address] [address] Range Rider: Ivan Perez MD Cholesterol in LDL [Mass/Vol] 100 mg/dL Normal 0-130 [facility] Comment on above: Result Comment: LDL Guidelines: <100 Desirable 100-129 Near to/above Desirable 130-159 Borderline >159 Undesirable Direct (measured) LDL and calculated LDL are not interchangeable tests. Performed By: #### L IPR #### [address] [address] Range Rider: Ivan Perez MD Cholesterol.total/Ch olesterol in HDL [Mass ratio] 3.7 {ratio} Normal <5 [facility] Comment on above: Performed By: #### L IPR #### [address] [address] Range Rider: Ivan Perez MD Triglyceride [Mass/Vol] 94 mg/dL Normal <150 [facility] Comment on above: Result Comment: Triglyceride Guidelines: <150 Desirable 150-199 Borderline 200-499 High >499 Very high Based on AHA Guidelines for fasting triglyceride, June 2012. Performed By: #### L IPR #### [facility] [address] [place] [address] Range Rider: Ivan Perez MD [place] 07-11-2023 ALT [Catalytic activity/Vol] 32 U/L Normal 5-33 [facility] Comment on above: Performed By: #### A ST, ALT #### [facility] [address] [place] [address] Range Rider: Robert Casiano MD [place]i 07-11-2023 AST [Catalytic activity/Vol] 23 U/L Normal <32 [facility] Comment on above: Performed By: #### A ST, ALT #### [facility] [address] [place] [address] Range Rider: Robert Casiano MD TSH w/reflex to FT4on 2022 Thyroid Stim. Horm. 2.14 uIU/mL Normal 0.30-5.00 [facility] Comment on above: Performed By: #### T SHX #### [facility] [address] [place] [address] Range Rider: Robert Casiano MD Glucose, Fastingon Glucose [Mass/Vol] 77 mg/dL 70 - 99 mg/dL [facility] Lipid Panelon 04-18-2022 Cholesterol [Mass/Vol] 194 mg/dL NINF - 200 mg/dL [facility] Comment on above: Cholesterol Guidelines: <200 Desirable 200-240 Borderline >240 Undesirable Cholesterol in HDL [Mass/Vol] 47 mg/dL 40 - PINF mg/dL [facility] Comment on above: HDL Guidelines: <40 Undesirable 40-59 Borderline >59 Desirable Cholesterol in LDL [Mass/Vol] 129 mg/dL 0 - 130 mg/dL [facility] Comment on above: LDL Guidelines: <100 Desirable 100-129 Near to/above Desirable 130-159 Borderline >159 Undesirable Direct (measured) LDL and calculated LDL are not interchangeable tests. Cholesterol.total/Ch olesterol in HDL [Mass ratio] 4.1 {ratio} NINF - 5 [facility] Triglyceride [Mass/Vol] 89 mg/dL NINF - 150 mg/dL [facility] Comment on above: Triglyceride Guidelines: <150 Desirable 150-199 Borderline 200-499 High >499 Very high Based on AHA Guidelines for fasting triglyceride, June 2012. [facility] Glucose, FastingOrdered By: Gunnar Palacios on 04-18-2021 Glucose [Mass/Vol] 85 mg/dL 70 - 99 mg/dL [facility] [employer] Phone: [employer] Phone: Lipid PanelOrdered By: Wesley Palacios on 04-18-2021 Cholesterol [Mass/Vol] 180 mg/dL <200 [employer] Phone: Comment on above: Cholesterol Guidelines: <200 Desirable 200-240 Borderline >240 Undesirable Cholesterol in HDL [Mass/Vol] 45 mg/dL >40 [employer] Phone: Comment on above: HDL Guidelines: <40 Undesirable 40-59 Borderline >59 Desirable Cholesterol in LDL [Mass/Vol] 113 mg/dL 0 - 130 mg/dL [employer] Phone: Comment on above: LDL Guidelines: <100 Desirable 100-129 Near to/above Desirable 130-159 Borderline >159 Undesirable Direct (measured) LDL and calculated LDL are not interchangeable tests. Cholesterol in VLDL [Mass/Vol] NOT REPORTED 1 - 30 mg/dL [employer] Phone: Cholesterol.total/Ch olesterol in HDL [Mass ratio] 4 {ratio} <5 [employer] Phone: Triglyceride [Mass/Vol] 112 mg/dL <150 [employer] Phone: Comment on above: Triglyceride Guidelines: <150 Desirable 150-199 Borderline 200-499 High >499 Very high Based on AHA Guidelines for fasting triglyceride, June 2012. [facility] Work Phone: Glucose, Fastingon 9 Glucose [Mass/Vol] 106 mg/dL High 70 - 99 mg/dL [place], [place] Interpretation and review of laboratory results Abnormal [place], [place] Insulin, Totalon 07-31-2019 INR Coag (Bld) [Relative time] [place], [place] Comment on above: Fastin.6-24.9 30 min: 20-112 60 min: 29-88 90 min: 26-84 120 min: 22-79 Insulin 44.5 mU/L [place], [place] Insulin Comment NOT REPORTED [place], [place] TSHon 07-31-2019 TSH Qn 2.26 m[IU]/L [place], [place] Vital Signs Date Time Vital Sign Value Performing Clinician Brennani tracy 07-12-2024 14:56-0400 Body mass index (BMI) [Ratio] 37.51 kg/m2 Deborah Merrill PA Work Phone: [facility] 07-12-2024 14:56-0400 Body weight 99.11 kg Deborah Merrill PA Work Phone: [facility] 07-12-2024 14:56-0400 Diastolic blood pressure 80 mm[Hg] Deborah Merrill PA Work Phone: [facility] 07-12-2024 14:56-0400 Systolic blood pressure 120 mm[Hg] Deborah Merrill PA Work Phone: [facility] 06-30-2024 14:49-0400 Body mass index (BMI) [Ratio] 37.49 kg/m2 Deborah Merrill PA Work Phone: [facility] 06-30-2024 14:49-0400 Body weight 99.07 kg Deborah Merrill PA Work Phone: [facility] 06-30-2024 14:49-0400 Diastolic blood pressure 78 mm[Hg] Deborah Merrill PA Work Phone: [facility] 06-30-2024 14:49-0400 Systolic blood pressure 116 mm[Hg] Deborah ELIZONDO Work Phone: [facility] Encounters Encounter Date Encounter Type Care Provider Facility Start: 07-28-2024 End: 07-28-2024 Orders Only Tomeka Nolasco RN [facility] Comment on above: History of pulmonary embolus (PE) (Primary Dx); Impaired glucose tolerance during ; Poor growth affecting management of mother in second trimester, single or unspecified fetus; Obesity affecting , antepartum, unspecified obesity type; growth restriction antepartum Start: 07-27-2024 End: 07-27-2024 ambulatory DEBORAH MERRILL Not Available Start: 07-22-2024 End: 07-22-2024 ambulatory [facility] Start: 07-16-2024 End: 07-16-2024 Office outpatient visit 40 minutes Theodore King MD Work Phone: [facility] Comment on above: History of pulmonary embolism (Primary Dx); 30 weeks gestation of ; Impaired glucose tolerance during Start: 07-16-2024 End: 07-16-2024 [facility] Start: 07-12-2024 End: 07-12-2024 ambulatory DEBORAH MERRILL Not Available Start: 07-12-2024 End: 07-12-2024 flow sheet Deborah ELIZONDO Work Phone: [facility] Comment on above: Third trimester preg bin; 30 weeks gestation of ; Poor growth affecting management of mother in first trimester, single or unspecified fetus Start: 07-12-2024 End: 07-12-2024 Bamboo flowsheet Deborah ELIZONDO Work Phone: [facility] Start: 07-12-2024 End: 07-12-2024 Bamboo flowsheet Deborah ELIZONDO Work Phone: [facility] Start: 07-06-2024 End: 07-06-2024 ambulatory [facility] Start: 06-30-2024 End: 06-30-2024 ambulatory DEBORAH MERRILL [...] Start: 06-23-2024 End: 06-23-2024 ambulatory ЕКАТЕРИНА R [facility] Start: 06-07-2024 End: 06-07-2024 ambulatory [facility] Start: 06-02-2024 End: 06-02-2024 ambulatory DEBORAH MERRILL Not Available Start: 06-01-2024 End: 06-01-2024 ambulatory [facility] Start: 05-28-2024 End: 05-28-2024 ambulatory ЕКАТЕРИНА R [facility] Start: 05-18-2024 End: 05-18-2024 ambulatory [facility] Start: 05-05-2024 End: 05-05-2024 ambulatory ЕКАТЕРИНА NOLAN Not Available Start: 05-05-2024 End: 05-05-2024 ambulatory [facility] Start: 05-05-2024 End: 05-05-2024 ambulatory [facility] Start: 04-21-2024 End: 04-21-2024 ambulatory ЕКАТЕРИНА R [facility] Start: 04-07-2024 End: 04-07-2024 ambulatory ЕКАТЕРИНА R NOLAN [facility] Start: 03-31-2024 End: 03-31-2024 ambulatory ЕКАТЕРИНА NOLAN Not Available Start: 03-09-2024 End: 03-09-2024 ambulatory ЕКАТЕРИНА NOLAN Not Available Start: 03-03-2024 End: 03-03-2024 ambulatory ЕКАТЕРИНА NOLAN Not Available Start: 02-20-2024 End: 02-20-2024 ambulatory ЕКАТЕРИНА NOLAN Not Available Start: 02-16-2024 End: 02-16-2024 ambulatory ЕКАТЕРИНА NOLAN Not Available Start: 10-30-2023 End: 10-30-2023 ambulatory ЕКАТЕРИНА NOLAN Not Available Start: 10-20-2023 End: 10-21-2023 ambulatory [facility] Start: 07-11-2023 End: 07-12-2023 ambulatory [facility] Start: 05-26-2023 End: 05-27-2023 ambulatory [facility] Start: 04-18-2022 End: 04-18-2022 Subsequent hospital visit by physician Gunnar Palacios MD Work Phone: [facility] Comment on above: Screening for diabet es mellitus; Screening cholesterol level Start: 01-30-2022 End: 01-30-2022 Patient encounter procedure Gunnar Palacios MD Work Phone: [facility] Start: 01-30-2022 End: 01-30-2022 Subsequent hospital visit by physician Gunnar Palacios MD Work Phone: [facility] Comment on above: Women's annual routi ne gynecological examination Start: 04-18-2021 End: 04-18-2021 Patient encounter status Gunnar Palacios MD Work Phone: [facility] Start: 04-18-2021 End: 04-18-2021 Subsequent hospital visit by physician Gunnar Palacios MD Work Phone: [facility] Comment on above: Wellness examination Start: 07-31-2019 End: 07-31-2019 Subsequent hospital visit by physician Gunnar Palacios [facility] Comment on above: Irregular menses Procedures [...] 07-31-2019 Assay of insulin total Olga Osborne Chuckricky Hernandez Work Phone: Start: 07-31-[address] gtt 3 specimens Olga Osborne Chuck Hernandez Work Phone: Start: 07-31-2019 Assay of thyroid stimulating hormone tsh Olga Osborne Chuckricky Moyag Work Phone: Plan of Treatment Date Care Activity Detail Author Start: 05-05-2025 Tobacco Screening Tobacco Screening [facility] Start: 04-21-2025 Adult BMI Screening Adult BMI Screen ing [facility] Start: 01-30-2025 Screening for malign ant neoplasm of cervix Pap smear [facility] Start: 08-31-2024 End: 08-31-2024 Patient encounter procedure 08/31/2024 3:15 PM EST Appointment [facility] - Ultrasound [address] [place] [address] [facility] - Ultrasound Start: 08-23-2024 End: 08-23-2024 Telemedicine consultation with patient 08/23/2024 9:45 AM EST Telemedicine Maternal- Medicine at [facility] [address] [place] [phone] Theodore King MD [address] 1st [place] [address] Maternal- Medicine at [facility] Start: 08-20-2024 End: 08-20-2024 Patient encounter procedure 08/20/2024 8:00 AM EST Appointment [facility] [place] [address] [place] [address] [facility] [place] Start: 08-19-2024 End: 08-19-2024 Telemedicine consultation with patient 08/19/2024 2:30 PM EST Telemedicine Maternal- Medicine at [facility] [address] [place] [phone] Theodore King MD [address] 1st [place] [address] Maternal- Medicine at [facility] Start: 08-04-2024 End: 08-04-2024 ambulatory 08/04/2024 9:30 AM EST Support Visit Maternal- Medicine at [facility] [address] [place] [phone] Theodore King MD [address] [place] [address] Lili Davis RN [address], [address] [place] [address] Marilu Muller, RD [address], [address] [place] [address] Maternal- Medicine at [facility] Start: 08-03-2024 End: 08-03-2024 Patient encounter procedure 08/03/2024 3:00 PM EST Appointment M[facility] [address] [place] [address] [facility] [place] Start: 07-26-2024 End: 07-26-2024 Patient encounter procedure 07/26/2024 3:00 PM EST Routine [facility] [address] [place] [phone] Deborah Merrill PA [address] [place] [address] [place] [address] [facility] Start: 07-22-2024 End: 07-22-2024 Patient encounter procedure 07/22/2024 10:30 AM EST Appointment Maternal Medicine [place] [id number] [place] [address] [facility] [place] Start: 07-12-2024 End: 07-12-2024 Patient encounter procedure 07/12/2024 2:40 PM EDT Routine [facility] [address] [facility] [place] [phone] Deborah Merrill PA [address] [place] [address] [facility] Start: 07-12-2024 End: 07-12-2025 [...] PM EDT Routine [facility] [address] [place] [address] Deborah Merrill PA [address] [place] [address] [facility] Start: 05-16-2024 Influenza vaccination Influenza Vacc ine [facility] Start: 10-06-2023 DTaP,Tdap and Td Vaccines (7 - Td or Tdap) DTaP,Tdap and Td Vaccines (7 - Td or Tdap) [facility] Start: 10-06-2023 DTaP/Tdap/Td vaccine (7 - Td or Tdap) DTaP/Tdap/Td vaccine (7 - Td or Tdap) [facility] Start: 10-06-2023 DTaP/Tdap/Td vaccine (7 - Td) DTaP/Tdap/Td vaccine (7 - Td) [place] Start: 02-05-2023 End: 02-05-2023 Patient encounter procedure 02/05/2023 Office Visit Obstetrics and Gynecology Sarah Horn, ANDREW [address] [place] [address] [facility] Start: 05-16-2022 Influenza vaccination [facility] Start: 04-19-2022 End: 04-19-2022 Patient encounter procedure 04/19/2022 Office Visit Primary Care Gunnar Palacios MD [address] [place] [address] [facility] Start: 04-16-2022 Depression Screen Depression Screen [facility] Start: 05-16-2021 Influenza vaccination Flu vaccine (# 1) [facility] Work Phone: Start: 08-03-2019 End: 08-03-2019 Office Visit 08/03/2019 Office Visit Obstetrics and Gynecology [facility] Matt [employer] Start: 05-16-2019 Influenza vaccination Flu vaccine (# 1) [place], [place] Start: 04-02-2017 Chlamydia screen Chlamydia screen [place], [place] Start: 04-02-2017 Screening for Chlamy daniella trachomatis Chlamydia screen [facility] Start: 2017 Cervical cancer screen Cervical canc er screen [place], [place] Start: 2017 Screening for malign ant neoplasm of cervix [facility] Start: 2014 Adult BMI Follow Up Plan Adult BMI Follow Up Plan [facility] Start: 2014 Hepatitis C screening Hepatitis C [facility] Start: 2011 HIV screen HIV screen [place], [place] Start: 2008 COVID-19 Vaccine (1) COVID-19 Vaccin e (1) [facility] Work Phone: Start: 2008 Depression Screening Depression Scre [facility] Start: 2007 HPV vaccine (1 - 2-d ose series) HPV vaccine (1 - 2-dose series) [facility] Start: 2007 HPV vaccine (1 - Fem rahul 2-dose series) HPV vaccine (1 - Female 2-dose series) [place] Start: 2001 COVID-19 Vaccine (1) COVID-19 Vaccin e (1) [facility] Start: 1996 COVID-19 Vaccine (#1) COVID-19 Vacci ne (#1) [facility] Start: 1996 Hepatitis C screening Hepatitis C sc [facility] Ch[employer]ian Phone: End: 07-16-2025 Anti cardiolipin AB IgG IgA IgM Anti cardiolipin AB IgG IgA IgM Lab Routine History of pulmonary embolism 30 weeks gestation of 1 Occurrences starting 07/16/2024 until 07/16/2025 [place] Phone: Comment on above: 1 Occurrences starti ng 07/16/2024 until 07/16/2025 End: 11-01-2025 Anti thrombin 3 funct Anti thrombin 3 funct Lab Routine History of pulmonary embolism 30 weeks gestation of 1 Occurrences starting 07/16/2024 until 07/16/2025 [facility] Comment on above: 1 Occurrences starti ng 07/16/2024 until 07/16/2025 End: 01-30-2022 Cytopathology procedure, preparation of smear, genital source PAP SMEAR Lab Routine Women's annual routine gynecological examination 1 Occurrences starting 01/30/2022 until 01/30/2022 [facility] Work Phone: Comment on above: 1 Occurrences starti ng 01/30/2022 until 01/30/2022 Immunizations Immunization Date Immunization Notes Care Provider [facility] 06-15-2015 influenza virus vacc ine, whole virus [facility] 06-15-2015 influenza virus vacc ine, unspecified formulation Theodore King MD Work Phone: [facility] 10-06-2013 hepatitis A vaccine, unspecified formulation [facility] , [place] 10-06-2013 tetanus toxoid, redu linda diphtheria toxoid, and acellular pertussis vaccine, adsorbed [facility], [place] 05-25-2013 varicella virus vaccine [facility] 02-25-2013 hepatitis A vaccine, unspecified formulation [facility] [place] 02-25-2013 meningococcal polysaccharide (groups A, C, Y and W-135) diphtheria toxoid conjugate vaccine (MCV4P) [facility], [place] 03-05-2001 diphtheria, tetanus toxoids and acellular pertussis vaccine [facility], [place] 03-05-2001 measles, mumps and rubella virus vaccine [facility] 03-05-2001 poliovirus vaccine, inactivated [facility] 07-14-1997 diphtheria, tetanus toxoids and acellular pertussis vaccine [facility], [place] 05-09-1997 measles, mumps and rubella virus vaccine [facility], [place] 05-09-1997 varicella virus vaccine [facility] [place], [place] 1996 diphtheria, tetanus toxoids and acellular pertussis vaccine [facility], [place] 1996 hepatitis B vaccine, unspecified formulation [facility] , [place] 1996 poliovirus vaccine, inactivated [facility], [place] 1996 diphtheria, tetanus toxoids and acellular pertussis vaccine [facility], [place] 1996 haemophilus influenz ae type b vaccine, PRP-OMP conjugate [facility], [place] 1996 poliovirus vaccine, inactivated [facility], [place] 1996 diphtheria, tetanus toxoids and acellular pertussis vaccine [facility] 1996 haemophilus influenz ae type b vaccine, PRP-OMP conjugate [facility], [place] 1996 poliovirus vaccine, inactivated [facility], [place] 1996 haemophilus influenz ae type b vaccine, PRP-OMP conjugate [facility], [place] 1996 hepatitis B vaccine, unspecified formulation [facility] , [place] 1996 haemophilus influenz ae type b vaccine, PRP-OMP conjugate [facility], [place] 1996 hepatitis B vaccine, unspecified formulation [facility] [place] Payers Date Payer Category Payer Managed Care Other (unspecified) [employer] Member Subscriber Plan / Payer (Effective 2023-Present) Name: Frank Barney Relation to Subscriber: Self Name: Barney Marie Payer ID: [id number] (NAIC) Type: Not on file Address: [place] [id number] 2023 Private Health Insurance [employer] [id number] 2023 Unknown [employer] HE[employer]ENEFITS [id number] 2023-Present [phone] [address] [address] [place] [address] [id number] 2023 Unknown [id number] 2021 Unknown [id number] 2020 Unknown [id number] .[id number] 2016 Unknown [employer] [facility] xxxxxxxxxxxx 2016-Present [phone] [address] [place] [address] xxxxxxxxxxxx [id number] .[id number] 1996 Unknown [id number] 2.16840.1.840719.3.579.2 .173 1996 Unknown [id number] 2.16840.1.678938.3.579.2 .173 1996 Unknown [id number] 2.16840.1.228208.3.579.2 .173 1996 Unknown [id number] 2.16840.1.803808.3.579.2 .1286 1996 Unknown [id number] 2.16.840.1.738706.3.579.2 .1285 1996 Unknown [id number] 2.16.840.1.521199.3.579.2 .1285 1996 Unknown [id number] 2.16.840.1.914191.3.579.2 .1285 1996 Unknown [id number] 2.16840.1.720624.3.579.2 .1285 1996 Unknown [id number] 2.16840.1.058939.3.579.2 .1285 1996 Unknown [id number] 2.16840.1.055779.3.579.2 .1285 1996 Unknown [id number] 2.16840.1.143530.3.579.2 .1285 1996 Unknown [id number] 2.840.1.835569.3.579.2 .1285 1996 Unknown [id number] 2.16840.1.079902.3.579.2 .1285 1996 Unknown [id number] 2.16840.1.339575.3.579.2 .1285 1996 Unknown [id number] 2.16840.1.937357.3.579.2 .1285 1996 Unknown [id number] 2.16840.1.878566.3.579.2 .1285 1996 Unknown [id number] 2.16840.1.429711.3.579.2 .1285 1996 Unknown [id number] 2.16840.1.507906.3.579.2 .1258 1996 Unknown [id number] 2.16840.1.710048.3.579.2 .1258 1996 Unknown [id number] 2.16840.1.961247.3.579.2 .1258 1996 Unknown [id number] 2.16.840.1.815951.3.579.2 .1258 1996 Unknown [id number] 2.16.840.1.458450.3.579.2 .1258 1996 Unknown [id number] 2.16.840.1.087817.3.579.2 .1258 1996 Unknown [id number] 2.16.840.1.511052.3.579.2 .1258 1996 Unknown [id number] 2.16.840.1.636357.3.579.2 .1258 1996 Unknown [id number] 2.16.840.1.441719.3.579.2 .1258 1996 Unknown [id number] 2.16.840.1.842359.3.579.2 .1258 1996 Unknown [id number] 2.16.840.1.737534.3.579.2 .1259 Social History Date Type Detail Facility Start: 07-13-2019 End: 03-15-2024 Tobacco smoking status NHIS Never smoker [place], [place] Start: 07-13-2019 End: 01-30-2022 Alcohol intake Current non-drinker of alcohol (finding) [place], [place] Start: 1996 Sex Assigned At Not on file [place] Start: 04-16-2021 End: 03-15-2024 Tobacco use and exposure Never used [employer] Phone: Start: 04-16-2021 History SDOH Financial 5 [employer] Phone: Start: 04-16-2021 History SDOH Food Worry 1 [employer] Phone: Start: 04-16-2021 History SDOH Transport Med 2 [employer] Phone: Start: 05-05-2024 End: 06-02-2024 Alcoholic beverage intake Ex-drinker (finding) [facility] Start: 02-16-2024 End: 04-07-2024 History of Social function [facility] Start: 02-16-2024 End: 04-07-2024 Tobacco use panel [facility] Start: 12-27-2023 [facility] Start: 1995 Sex assigned at Female [facility] Start: 10-23-2023 Gender identity Identifies as female gender (finding) [facility] Start: 10-23-2023 Sexual orientation Heterosexual (finding) [facility] Within the past 12 months we worried whether our food would run out before we got money to buy more. Never True [facility] Start: 03-11-2024 Sex Female (finding) [facility] Medical Equipment Procedure Code Equipment Code Equipment Origin al Text Equipment Identifier Dates [id number], [id number] Star t: 07-16-2024 End: 07-16-2024 Goals Date [...] and also wants her to go to [facility] diabetic ed, patient verbalized understanding and was transferred to scheduling to make appointment. documented in this encounter [facility] 07-28-2024 Telephone encount er Note Called and spoke with patient, notified her that Dr King would like patient to continue checking blood sugars 4times daily and sending in logs and also wants her to go to [facility] diabetic ed, patient verbalized understanding and was transferred to scheduling to make appointment. [facility] 07-16-2024 History of Presen t illness Narrative Video Visit via Real-time Synchronous Audiovisual Provider Location: [facility] AT [address] [facility] [address] Patient Location: Other Patient Location Navy Diver: None Video Visit Consent Statement: I discussed [...] that there are some limitations compared to [id number] evaluations. We elected to proceed. 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 She has not had [...] GTT. Patient to send in logs to [facility]. Supplies ordered today. Continue serial growth ultrasounds every 4 weeks through [facility] Continue umbilical artery Dopplers every 2 weeks, through [facility] Recommend ANFS: NST and NICHOLAS weekly starting [...] comorbidities: 34 weeks Delivery method preferred vaginal. [place] C/S for usual obstetrical indications Consider steroids if delivery before 37 weeks. Consider neuro magnesium if delivery before 32 weeks Recommend restarting Lovenox in the period once hemodynamically stable and safe from a anesthesia standpoint, to be continued through 6 weeks DISPOSITION: At this point the patient is in complete care of her boxing inspector. Patient does have ultrasound and office visit scheduled with us. Thank you for allowing me to participate in the care of Barney Marie. If there any questions please do not hesitate to contact us. Theodore King MD Maternal- Medicine [facility] [address] 1st [place] [address] [facility], the CDC, and other organizations representing maternal and public health professionals recommend that , , and lactating people and those considering receive the COVID-19 vaccination. Vaccination is the best method to reduce maternal and complications of SARS-CoV-2 infection. This document was created with [employer] technology. Though I make every effort to review the dictation as it is transcribed, on occasion the spoken word can be misinterpreted by the technology leading to inappropriate words, phrases, or sentences. This note is addressed to the requesting provider as a consultation for clinical guidance. Specific medical abbreviations are occasionally used and those are generally approved by the [place]?Board of?Obstetrics and?Gynecology?as well as?Karel giang abbreviations. The above plan of care was based solely on the diagnoses for which a consultation was requested. ?More frequent testing may be indicated based on her other medical/obstetrical conditions. The management of other or medical conditions is beyond the scope of requested consultation and will continue to be followed by the primary boxing inspector or primary care provider. Note to patient: [...] procedures Referring and communicating with other health elderly caregiver (not separately reported) Documenting clinical information in the electronic or other health record documented in this encounter [facility] 07-12-2024 History of Presen t illness Narrative Reason for Appointment: Patient ID: Barney Marie is a 29 y.o. female who presents for Routine Visit Patient presents today for Return OB appointment. MEDICATIONS Current Outpatient Medications Medication Instructions Enoxaparin Sodium 40 mg, Subcutaneous, Daily [id number]-Gj-[id number] ( 1 + IRON PO) Oral sertraline [...] of: CARO Singh documented in this encounter [facility] 06-30-2024 History of Presen t illness Narrative Reason for Appointment: Patient ID: Barney Marie is a 29 y.o. female who presents for Routine Visit Patient presents today for Return OB appointment. MEDICATIONS Current Outpatient Medications Medication Instructions Enoxaparin Sodium 40 mg, Subcutaneous, Daily Cimussjd-[id number]-[id number] ( 1 + IRON PO) Oral sertraline [...] Diagnosis Wellness examination documented in this encounter [employer] Phone: evallilbsj note* Diagnosis Women's annual routine gynecological examination documented in this encounter [employer] Phone: evaluation note* Diagnosis Screening for diabetes mellitus Screening cholesterol level Screening for lipoid disorders documented in this encounter ANDRÉS MARTINEZ [employer] Phone: evaluation note* Diagnosis Second trimester state, [...] during [facility] History of pulmonary [...] FoundDocuments on File Type Date Recorded Patient 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 Crib 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 Expl anation Advance Directives and Living Will Power of Staff Accountant Latest Code Status on File Code Status Date Activated Date Inactivated Comments Full Code 09/13/2015 8:45 PM 09/14/2015 5:05 PM Documents on File Type Date Recorded Patient Tool Crib Attendant Expl anation ACP-Advance Directive ACP-Power of Staff Accountant Summary Purpose Family History No Family History Records FoundNo Family History Records FoundNo Family History Records FoundNo Family History Records FoundNo Family History Records Found Additional Source Comments Care Teams (unrecognized sec tion and content) Grain Farmer Relationship Specialty Start Date End Date Gunnar Palacios MD [address] [place] [address] PCP - General Family Medicine 09/22/15 Grain Farmer Relationship Specialty Start Date End Date Gunnar Palacios MD [address] [place] [address] PCP - General Family Medicine 09/22/15 INFORMATION SOURCE (unrecogn ized section and content) DATE CREATED AUTHOR 10/21/2023 Hiwot Gutierrez [facility] DATE CREATED AUTHOR AUTHOR'S ORGANIZ ATION 06/09/2024 [facility] DATE CREATED AUTHOR AUTHOR'S ORGANIZ ATION 07/18/2024 [facility] DATE CREATED AUTHOR AUTHOR'S ORGANIZ ATION 07/24/2024 [facility] DATE CREATED AUTHOR AUTHOR'S ORGANIZ ATION 07/29/2024 [facility] EPIC Reason for Visit (unrecogniz ed section and [...] BE BASED ON THE PRIMARY CLINICAL RECORDS. [employer] provides no warranty or guarantee of the accuracy or completeness of information in this document.
[2024-08-02 14:34] VITALS: BP 133/84; PULSE 88
--- NOTE | 2024-08-02 14:57 | US_ITS ---
[address] [address] Patient Name: LAURA OROSCO MRN: [id number] date: 1995 Sex: F Assigned Patient Location: [facility] Current Patient Location: Accession/Order Number: [id number] Exam Date: 08/02/2024 15:04 Report Date: 08/03/2024 04:54 At the request of: ЕКАТЕРИНА BARBOZA Procedure: US OB BPP w non-stress EXAMINATION: US OB BPP w non-stress HISTORY:POOR GROWTH [id number] COMPARISON: No relevant comparison available. TECHNIQUE: Ultrasound biophysical profile was performed in the radiology department. BREATHING MOVEMENTS: 2 GROSS BODY MOVEMENTS: 2 TONE: 2 QUALITATIVE AMNIOTIC FLUID VOLUME: 2 PRESENTATION: CEPHALIC HEART RATE: 146.74 bpm AMNIOTIC FLUID VOLUME: 18.78 cm GESTATIONAL AGE: 33 weeks 2 days US/US OB BPP w non-stress IMPRESSION: 1. Total biophysical profile score: 8 2. Possible nuchal cord. Follow-up recommended. Electronically authenticated by: NATHALIE SPARKS Date: 08/03/2024 04:54
== END 2024-08-02 15:45 | disposition home or self-care (01) ==
LOC: US 06:35 → FBC 14:29
PROVIDERS: PCP Nurse Practitioner Women's Health; Visit Provider Obstetrics & Gynecology
DX: Z34.93 Encounter for supervision of normal pregnancy, unspecified, third trimester (principal); Z3A.33 33 weeks gestation of pregnancy
CPT/HCPCS: 76818

== ENCOUNTER 2025-04-12 15:08 | Outpatient (REF) | payer BC, SELFPAY ==
--- OUTSIDE RECORDS SUMMARY | 2025-04-12 09:00 | XMS_ITS | Encounter Summary ---
Author Organization [facility] Address [address] [place] [address] Care Team Providers Care Securities Lending Trader Name Role Phone Unavailable Primary Care Provider Unavailabl e Reason for Visit * Reason Comments Well Women Visit Encounter Details Date Type Department Care Team (Late st Contact Info) Description 04/12/2025 9:00 AM EDT Office Visit [facility] [place] [facility] [address] [place] [address] Sree Francisco DO [address] [place] [address] Well woman exam with routine gynecological exam Social History Tobacco Use Types Packs/Day Years Used Date Smoking Tobacco: Never Smokeless Tobacco: Never Alcohol Use Standard Drinks/Week Comments Not Currently 0 (1 standard drink = 0.6 oz pur e alcohol) Comments Unknown Sex and Gender Information Value Date Recorded Sex Assigned at Female 10/23/2023 8:38 AM EST Legal Sex Female 11:36 PM EDT Gender Identity Female 10/23/2023 8:38 AM EST Sexual Orientation Straight 10/23/2023 8: 38 AM EST documented as of this encounter Last Filed Vital Signs Vital Sign Reading Time Taken Comments Blood Pressure 116/78 04/12/2025 9:03 AM EDT Pulse - - Temperature - - Respiratory Rate - - Oxygen Saturation - - Inhaled Oxygen Concentration - - Weight 98.2 kg (216 lb 6.4 oz) 04/12/2025 9:03 A M EDT Height - - Body Mass Index 37.14 02/16/2024 1:27 PM EDT documented in this encounter Progress Notes * Lizeth Macario, SENSOR OPERATOR - 04/12/2025 9:00 AM EDT Reason for Appointment: Patient ID: Barney Marie is a 30 y.o. female who presents for Well Women Visit Patient presents today for Annual Exam. MEDICATIONS Current Outpatient Medications Medication Instructions sertraline (Zoloft) 25 MG tablet 1 tablet, Daily ALLERGIES Allergies Allergen Reactions Cefprozil Hives Sodium Chloride PROBLEMS Active Ambulatory Problems Diagnosis Date Noted No Active Ambulatory Problems Resolved Ambulatory Problems Diagnosis Date Noted No Resolved Ambulatory Problems Past Medical History: Diagnosis Date Female infertility Hormone disorder Iron deficiency anemia Polycystic ovary syndrome Pulmonary embolism with infarction (HCC) HISTORY PAST MEDICAL HISTORY SOCIAL HISTORY Past Medical History: Diagnosis Date Female infertility Hormone disorder Iron deficiency anemia Polycystic ovary syndrome Pulmonary embolism with infarction (HCC) Social History Tobacco Use Smoking status: Never [...] HISTORY Past Surgical History: Procedure Laterality Date SECTION, LOW TRANSVERSE 08/05/2024 WISDOM TOOTH EXTRACTION wisdom teeth REVIEW OF SYSTEMS Review of Systems: Review of Systems Constitutional: Negative. HENT: Negative. Eyes: Negative. Respiratory: Negative. Cardiovascular: Negative. Gastrointestinal: Negative. Genitourinary: Negative. Musculoskeletal: Negative. Skin: Negative. Neurological: Negative. All other systems reviewed and are negative. Hematological: Negative. Endocrine: Negative. Allergic/Immunologic: Negative. OBJECTIVE Objective: Physical Exam Constitutional: Appearance: Normal appearance. She is well-developed. Genitourinary: Vulva normal. Cardiovascular: Rate and Rhythm: Normal rate and regular rhythm. Pulmonary: Effort: Pulmonary effort is normal. Breath sounds: Normal breath sounds. Abdominal: General: Bowel sounds are normal. There is no distension. Palpations: Abdomen is soft. Tenderness: There is no abdominal tenderness. There is no guarding or rebound. Musculoskeletal: General: No swelling. Normal range of motion. Right lower leg: No edema. Left lower leg: No edema. Neurological: Mental Status: She is alert and oriented to person, place, and time. Skin: General: Skin is warm and dry. Psychiatric: Mood and Affect: Mood normal. Behavior: Behavior normal. Vitals and nursing note reviewed. Exam conducted with a supply chain analyst present. Vitals: Estimated body mass index is 37.14 kg/m?? as calculated from the following: Height as of 02/16/24: 5' 4 . Weight as of this encounter: 216 lb 6.4 oz. BP: 116/78 No LMP recorded. ASSESSMENT & PLAN ICD-10-CM 1. Well woman exam with routine gynecological exam Z01.419 No orders of the defined types were placed in this encounter. Annual Wellness Exam: Patient presents today for routine annual exam. Patient states she has no current complaints. Patients vitals were reviewed and within normal limits. Growth and development is noted to be appropriate for age. Menstrual history is noted to be regular with no concerns reported. No mental health concerns was expressed. Pap Smear: Speculum was inserted into the vagina and pap was obtained without difficulty. No HPV testing was performed per age guideline. Patient was advised that pap results could take anywhere from 7 to 10 days to receive and our office will reach out to the patient with those once we have them. Patient canalso view results via [employer]hart. I reinforced importance of condom use for STI prevention. Patient declined cultures to be performed with today's visit. Breast Exam: Upon examination, clinical breast exam was noted to be normal. Patient was counseled on breast self-awareness, including the importance of knowing what is normal for her own breasts and promptly reporting any changes such as new lumps, skin dimpling, nipple discharge, or pain. Screening mammogram recommended annually beginning at age 40 or earlier if risk factors are present. Discussed signs and symptoms of breast cancer and when to seek medical attention. Answered all patient questions. Contraceptive Counseling (if applicable): Patient is currently using IUD as a form of contraceptive. Follow Up: Patient is to return to our office in one year for annual exam unless needed otherwise. Documented by Lizeth Macario LPN on behalf of: Sree Francisco DO documented in this encounter Miscellaneous Notes * Addendum Note - Hodan Bob LPN - 04/12/2025 9:00 AM EDTAddended by: HODAN BOB on: 04/12/2025 11:56 AM Modules accepted: Orders documented in this encounter Plan of Treatment Upcoming Encounters Date Type Department Care Team (Late st Contact Info) Description 04/25/2025 3:30 PM EDT Procedure Visit [facility] [address] [facility] [address] Sree Francisco, DO [address] [place] [address] 04/17/2026 11:00 AM EDT Procedure Visit [facility] [address] [facility] [address] Sree Francisco, DO [address] [place] [address] Scheduled Orders Name Type Priority Associated Diagnoses Orde r Schedule Pap Smear Pathology and Cytology Routine Well woman exam with routine gynecological exam Ordered: 04/12/2025 documented as of this encounter Goals Goal Patient Goal Type Associated Problems Recent Progress Patient-Stated? Author Reminders Care Plan OB Reminders No Open Scheduling, Background documented as of this encounter Visit Diagnoses Diagnosis Well woman exam with routine gynecological exam Routine gynecological examination documented in this encounter Additional Health Concerns Active Problems Noted Date Diagnosed Date OB Reminders 02/28/2024 documented as of this encounter
--- OUTSIDE RECORDS SUMMARY | 2025-04-12 15:12 | XMS_ITS | Encounter Summary ---
Author Organization [facility] Address [address] [place] [address] Care Team Providers Care Compliance Director Name Role Phone Unavailable Primary Care Provider Unavailabl e Encounter Details Date Type Department Care Team (Late Contact Info) Description 04/22/2024 Abstract [facility] [address] [place] [address] [place] [phone] Sree Francisco DO [facility] [address] [place], [place] [address] Social History Tobacco Use Types Packs/Day Years Used Date Smoking Tobacco: Never Smokeless Tobacco: Never Alcohol Use Standard Drinks/Week Comments Not Currently 0 (1 standard drink = 0.6 oz pur e alcohol) Comments Yes Sex and Gender Information Value Date Recorded Sex Assigned at Female 10/23/2023 8:38 AM EST Legal Sex Female 11:36 PM EDT Gender Identity Female 10/23/2023 8:38 AM EST Sexual Orientation Straight 10/23/2023 8: 38 AM EST documented as of this encounter Plan of Treatment Upcoming Encounters Date Type Department Care Team (Late Contact Info) Description 04/25/2025 3:30 PM EDT Procedure Visit [facility] [place] [phone] Sree Francisco DO [facility] [address] [place], [place] [address] 04/17/2026 11:00 AM EDT Procedure Visit [facility] [address] [place] [address] Sree Francisco DO [address] [facility] [place] [address] documented as of this encounter Goals Goal Patient Goal Type Associated Problems Recent Progress Patient-Stated? Author Reminders Care Plan OB Reminders No Open Scheduling, Background documented as of this encounter Visit Diagnoses Not on filedocumented in this encounter Additional Health Concerns Active Problems Noted Date Diagnosed Date OB Reminders 02/28/2024 documented as of this encounter
--- OUTSIDE RECORDS SUMMARY | 2025-04-12 15:12 | XMS_ITS | Encounter Summary ---
Author Organization [facility] Address [address] [place] [address] Care Team Providers Care Classification Inspector Name Role Phone Unavailable Primary Care Provider Unavailabl e Encounter Details Date Type Department Care Team (Late st Contact Info) Description 02/20/2024 Clinisync Result Encounter [facility] External Department Unsolicited Екатерина Francisco, DO [address] [place], [place] [address] Social History Tobacco Use Types Packs/Day Years [...] Description 04/25/2025 3:30 PM EDT Procedure Visit [facility] [address] [place], [place] [address] [phone] Екатерина Francisco DO [address] [place], [facility] 04/17/2026 11:00 AM EDT Procedure Visit [facility] [place] [address] Екатерина Francisco, DO [address] [place] [address] [place] [address] documented as of this encounter Procedures Procedure Name Priority Date/Time Associated Diagnosis Comments US OB TRANSVAGINAL 02/20/2024 10 :15 AM EDT documented in this encounter Results * US OB TRANSVAGINAL (02/20/2024 10:15 AM EDT) Anatomical Region Laterality Modality Other 02/20/2024 10:1 5 AM EDT Narrative 02/20/2024 10:17 AM EDT [address] [address] Ultrasound Report Signed Patient: LAURA OROSCO MR#: [id number] : 1995 Acct:[id number] Age/Sex: 28 / F ADM Date: 02/20/24 Loc: [facility] Attending Dr: Екатерина Francisco D.O. Ordering Physician: Екатерина Francisco D.O. Date of Service: 02/20/24 Procedure(s): US OB transvaginal Accession Number(s): [id number] cc: Екатерина Francisco D.O.; Physician,Non-Staff Guadalupe The [address] [address] Patient Name: LAURA OROSCO MRN: [id number] date: 1995 Sex: F Assigned Patient Location: [facility] Current Patient Location: [facility] Accession/Order Number: [id number] Exam Date: 02/20/2024 09:04 Report Date: 02/20/2024 10:15 At the request of: ЕКАТЕРИНА FRANCISCO Procedure: US OB transvaginal EXAMINATION: US OB transvaginal HISTORY: MISSED MENSES, FOLLOW UP SUBCHORIONIC BLEED COMPARISON: Ultrasound report from outside facility, 02/13/2024 FINDINGS: GESTATIONAL SAC: Present and normal appearing. YOLK SAC: Present and normal appearing. POLE: Present and normal appearing. CARDIAC: Present. UTERUS: 2 small subchorionic hematomas, 9 x 6 x 6 mm and 13 x 8 x 6 mm. OVARIES: Right: Not seen. Left: Normal. CERVIX: 4.9 cm in length and closed. CUL-DE-SAC: Normal. OTHER: None. AGE BY LMP: 9 weeks 6 days ALEJANDRA BY LMP: 09/18/2024 AGE BY US CRL: 9 weeks 1 day ALEJANDRA BY US CRL: 09/23/2024 US/US OB transvaginal IMPRESSION: 1. Single live intrauterine . 2. Contains 2 small subchorionic hematomas which appear to be decreasing in size/resolving. Electronically authenticated by: ABHIJEET TAM Date: 02/20/2024 10:15 Dictated By: Abhijeet Tam M.D. Signed By: 02/20/24 1017 DD/ 1015 TD/TT: Bomb Loader: Procedure Note Radiology, Radiologist, MD - 02/20/2024 [place] [address] Ultrasound Report Signed Patient: LAURA OROSCO MMR#: [id number] : 1995Acct:[id number] Age/Sex: Date: 02/20/24 Loc: [facility] Attending Dr: Екатерина Francisco D.O. Ordering Physician: Екатерина Francisco D.O. Date of Service: 02/20/24 Procedure(s): US OB transvaginal Accession Number(s): [id number] cc: Екатерина Francisco D.O.; Physician,Non-Staff Gu[facility]upe The [place] [id number] Patient Name: LAURA OROSCO MRN: [id number] date: 1995 Sex: F Assigned Patient Location: [facility] Current Patient Location: [facility] Accession/Order Number: [id number] Exam Date: 02/20/2024 09:04 Report Date: 02/20/2024 10:15 At the request of: ЕКАТЕРИНА FRANCISCO Procedure: US OB transvaginal EXAMINATION: US OB transvaginal HISTORY: MISSED MENSES, FOLLOW UP SUBCHORIONIC BLEED COMPARISON: Ultrasound report from outside facility, 02/13/2024 FINDINGS: GESTATIONAL SAC: Present and normal appearing. YOLK SAC: Present and normal appearing. POLE: Present and normal appearing. CARDIAC: Present. UTERUS: 2 small subchorionic hematomas, 9 x 6 x 6 mm and 13 x 8 x 6 mm. OVARIES: Right: Not seen. Left: Normal. CERVIX: 4.9 cm in length and closed. CUL-DE-SAC: Normal. OTHER: None. AGE BY LMP: 9 weeks 6 days ALEJANDRA BY LMP: 09/18/2024 AGE BY US CRL: 9 weeks 1 day ALEJANDRA BY US CRL: 09/23/2024 US/US OB transvaginal IMPRESSION: 1. Single live intrauterine . 2. Contains 2 small subchorionic hematomas which appear to be decreasingin size/resolving. Electronically authenticated by: ABHIJEET TAM Date: 02/20/2024 10:15 Dictated By: Abhijeet Tam M.D. Signed By:02/20/24 1017 DD/ 1015 TD/TT: Bomb Loader: [facility] Final Result documented in this encounter Visit Diagnoses Not on filedocumented in this encounter
--- OUTSIDE RECORDS SUMMARY | 2025-04-12 15:12 | XMS_ITS | Encounter Summary ---
Author Organization [facility] Address [address] [place] [address] Care Team Providers Care Senior Java Programmer Name Role Phone Unavailable Primary Care Provider Unavailabl e Encounter Details Date Type Department Care Team (Late Contact Info) Description 05/31/2024 Abstract [facility] [address] [place] [address] [place] [phone] Sree Francisco DO [facility] [address] [place], [place] [address] Social History Tobacco Use Types Packs/Day Years [...] 3:30 PM EDT Procedure Visit [facility] [place] [phone] Sree Francisco DO [facility] [place] [address] 04/17/2026 11:00 AM EDT Procedure Visit [facility] [address] [place] [address] Sree Francisco DO [address] [facility] [place] [address] documented as of this encounter Goals Goal Patient Goal Type Associated Problems Recent Progress Patient-Stated? Author Reminders Care Plan OB Reminders No Open Scheduling, Background documented as of this encounter Visit Diagnoses Not on filedocumented in this encounter Additional Health Concerns Active Problems Noted Date Diagnosed Date OB Reminders 02/28/2024 documented as of this encounter
--- OUTSIDE RECORDS SUMMARY | 2025-04-12 15:12 | XMS_ITS | Encounter Summary ---
Author Organization [facility] Address [address] [place] [address] Care Team Providers Care Circular Knitter Helper Name Role Phone Unavailable Primary Care Provider Unavailabl e Encounter Details Date Type Department Care Team (Late Contact Info) Description 05/18/2024 Abstract [facility] [address] [place] [address] [place] [phone] Sree Francisco DO [facility] [address] [place], [place] [address] Social History Tobacco Use Types Packs/Day Years [...] 3:30 PM EDT Procedure Visit [facility] [place] [phone] Sree Francisco DO [facility] [address] [place], [facility] 04/17/2026 11:00 AM EDT Procedure Visit [facility] [address] [facility] [place] [phone] Sree Francisco DO [address] [facility] [place] [address] documented as of this encounter Goals Goal Patient Goal Type Associated Problems Recent Progress Patient-Stated? Author Reminders Care Plan OB Reminders No Open Scheduling, Background documented as of this encounter Visit Diagnoses Not on filedocumented in this encounter Additional Health Concerns Active Problems Noted Date Diagnosed Date OB Reminders 02/28/2024 documented as of this encounter
--- OUTSIDE RECORDS SUMMARY | 2025-04-12 15:12 | XMS_ITS | Encounter Summary ---
Author Organization [facility] Address [address] [place] [place] [address] Care Team Providers Care Bolt Sawyer Name Role Phone Unavailable Primary Care Provider Unavailabl e Encounter Details Date Type Department Care Team (Late Contact Info) Description 05/06/2024 Abstract [facility] [address] [place] [address] [place] [phone] Sree Francisco DO [facility] [address] [place], [place] [address] Social History Tobacco Use Types Packs/Day Years [...] 3:30 PM EDT Procedure Visit [facility] [place] [phone] Sree Francisco DO [facility] [address] [place], [facility] 04/17/2026 11:00 AM EDT Procedure Visit [facility] [address] [facility] [place] [phone] Sree Francisco DO [address] [facility] [place] [address] documented as of this encounter Goals Goal Patient Goal Type Associated Problems Recent Progress Patient-Stated? Author Reminders Care Plan OB Reminders No Open Scheduling, Background documented as of this encounter Visit Diagnoses Not on filedocumented in this encounter Additional Health Concerns Active Problems Noted Date Diagnosed Date OB Reminders 02/28/2024 documented as of this encounter
--- OUTSIDE RECORDS SUMMARY | 2025-04-12 15:12 | XMS_ITS | Encounter Summary ---
Author Organization [facility] tem Address [id number] [address] [place] [address] Care Team Providers Care Senior Net C Developer Name Role Phone Pcp, Not In System Primary Care Provider Unavail able Encounter Details Date Type Department Care Team (Late st Contact Info) Description 07/20/2024 Orders Only Maternal- Medicine at [facility] [address] [place] [phone] Tomeka Nolasco RN History of pulmonary embolus (PE); History of pulmonary embolism; 30 weeks gestation of Social History Tobacco Use Types Packs/Day Years Used Date Smoking Tobacco: Never Smokeless Tobacco: Never Alcohol Use Standard Drinks/Week Comments Not Currently 0 (1 standard drink = 0.6 oz pur e alcohol) Hunger Screening Answer Date Recorded Within the past 12 months we worried whether our food would run out before we got money to buy more. Never True 04/07/2024 Within the past 12 months th e food we bought just didn't last and we didn't have money to get more. Never True 04/07/2024 Comments Yes Sex and Gender Information Value Date Recorded Sex Assigned at Not on file Legal Sex Female 1:15 PM EDT Gender Identity Not on file Sexual Orientation Not on file documented as of this encounter Plan of Treatment Not on file documented as of this encounter Procedures Procedure Name Priority Date/Time Associated Diagnosis Comments ANTI CARDIOLIPIN AB IGG IGA IGM Routine 06/14/2024 History of pulmonary embolism 30 weeks gestation of PROTHROMBIN GENE MUTATION Routine 06/14/2024 History of pulmonary embolus (PE) ANTI THROMBIN 3 FUNCT Routine 06/14/2024 History of pulmonary embolism 30 weeks gestation of documented in this encounter Results * Anti thrombin 3 funct (06/14/2024) Antithrombin iii activity 108 SUNQUEST 06/14/2024 us Jessica Leonard MD LAB BLOOD ORDERABLES Final Resul t Performing Organization Address [facility] Co de Phone Number SUNQUEST * Anti cardiolipin AB IgG IgA IgM (06/14/2024) 06/14/2024 Jessica Leonard MD LAB BLOOD ORDERABLES Final Resul t Performing Organization Address [facility] de Phone Number SUNQUEST * Prothrombin gene mutation (06/14/2024) Prothrombin Mutation Negative Negative, Trace, Moderate, Large SUNQUEST 06/14/2024 us Jessica Leonard MD LAB BLOOD ORDERABLES Final Resul t Performing Organization Address [facility] de Phone Number SUNQUEST documented in this encounter Visit Diagnoses Diagnosis History of pulmonary embolus (PE) History of pulmonary embolism Personal history of venous thrombosis and embolism 30 weeks gestation of documented in this encounter Care Teams Senior Net C Developer Relationship Specialty Start Date End Date Pcp, [place] [address] PCP - General Family Medicine 08/13/24 documented as of this encounter
--- OUTSIDE RECORDS SUMMARY | 2025-04-12 15:12 | XMS_ITS | Encounter Summary ---
Author Organization [facility] Address [address] [place] [address] Care Team Providers Care Client Relations Associate Name Role Phone Unavailable Primary Care Provider Unavailabl e Encounter Details Date Type Department Care Team (Late Contact Info) Description 04/09/2024 Abstract [facility] [address] [facility] [place] [address] Estefani Sunshine LPN [address] [place] [address] Social History Tobacco Use Types Packs/Day Years [...] PM EDT Procedure Visit [facility] [address] [facility] [place] [phone] Sree Francisco DO [address] [place], [place] [address] 04/17/2026 11:00 AM EDT Procedure Visit [facility] [address] [facility] [place] [address] Sree Francisco, [address] [facility] [place] [address] documented as of this encounter Goals Goal Patient Goal Type Associated Problems Recent Progress Patient-Stated? Author Reminders Care Plan OB Reminders No Open Scheduling, Background documented as of this encounter Visit Diagnoses Not on filedocumented in this encounter Additional Health Concerns Active Problems Noted Date Diagnosed Date OB Reminders 02/28/2024 documented as of this encounter
--- OUTSIDE RECORDS SUMMARY | 2025-04-12 15:12 | XMS_ITS | Encounter Summary ---
Author Organization [employer] Address [id number] [address] [place] [address] Care Team Providers Care Manager Division Name Role Phone Pcp, Not In System Primary Care Provider Unavail able Reason for Referral * Diagnostic Imaging (Routine) - Pending Review Specialty Diagnoses / Procedures Referred By Contac t Referred To Contact Maternal and Medicine Diagnoses Poor growth affecting management of mother in second trimester, single or unspecified fetus Procedures US MFM with or without consult Donna Alcantara MD [address] [address] Phone: tel: fax: Maternal- Medicine at [address] [address] Phone: tel: fax: Referral ID Status Reason Start Date Expiration Date V isits Requested Visits Authorized [id number] Pending Review 06/07/2024 06/07/2025 1 1 Encounter Details Date Type Department Care Team (Late st Contact Info) Description 06/07/2024 Orders Only Maternal- Medicine at [facility] 2 [place] [address] Amanda Blanc, DIRECTOR MEDICAL ECONOMICS Poor growth affecting management of mother in second trimester, single or unspecified fetus (Primary Dx) Social History Tobacco Use Types Packs/Day Years [...] on file documented as of this encounter Results * US [facility] AMNIOTIC FLUID VOLUME ASSESSMENT (07/06/2024 10:21 AM EDT) Anatomical Region Laterality Modality OB-FRUIT CHECKER Ultrasound 07/06/2024 10:0 7 AM EDT Impressions 07/06/2024 2:16 PM EDT IMPRESSION: 1. Single intrauterine gestation with a working diagnosis of FGR. 2. Circumvallate placenta again noted with a well circumscribed cystic structure, measuring 1.3 x 1.5 x 1.3 cm, most consistent with placental cyst. 3. Umbilical artery Doppler S/D ratio in normal range. 4. Amniotic fluid volume assessment (DVP) is normal. RECOMMENDATIONS: 1. Please see [facility] recommendations from prior clinical and/or ultrasound report documentation. 2. Continue serial umbilical artery Doppler evaluation every 2 weeks through [facility]. 3. Continue serial growth ultrasounds every 4 weeks through [facility]. 4. Continue testing as previously recommended. 5. Subsequent follow up or other follow up as clinically determined by primary OB provider unless otherwise specified by [facility]. 6. Results forwarded to ordering provider so they can follow up with the patient as necessary. Narrative 07/06/2024 2:16 PM EDT OBSTETRICS REPORT (Signed Final 07/06/2024 14:16) PATIENT INFO: ID #: [id number] : [birth year] (29 yrs)(F) Name: LAURA MARIE Visit Date: 07/06/2024 10:07 PERFORMED BY: Attending: Jessica Leonard MD Performed By: Rae Rhodes RDND Referred By: Sree Quesada. Address: [address] [place] [address] [place] [address] Location: [facility] SERVICE(S) PROVIDED: Amniotic fluid volume assessment 27097 Doppler, umbilical artery 75856 INDICATIONS: Intrauterine growth restriction affecting care O36.5990 of mother Malformation of placenta, unspecified, O43.109 antepartum: Circumvallate Obesity in , antepartum O99.210 Personal history of PE Z86.711 Supervision of other high risk , O09.90 antepartum - previous subchorionic hematomas-resolved VITAL SIGNS: Weight (lb): 210 Height: 5'4 BMI: 36.04 EVALUATION: Num Of Fetuses: 1 Heart Rate(bpm): 144 Cardiac Activity: Present & appears normal Presentation: Sin breech Placenta: Anterior Rt, away from cervical os Largest Pocket(cm) 4.4 BIOMETRY: OB HISTORY: : 1 GESTATIONAL AGE: LMP: 29w 3d Date: 12/13/23 ALEJANDRA: 09/18/24 Best: 29w 3d Det. By: LMP (12/13/23) ALEJANDRA: 09/18/24 DOPPLER - VESSELS: Umbilical Artery S/D %tile RI %tile PI %tile PSV (cm/s) 2.82 46 0.66 57 0.97 51 46.1 CERVIX UTERUS ADNEXA: Uterus Gravid uterus Jessica Leonard MD Electronically Signed Final Report 07/06/2024 14:16 Procedure Jessica Linda MD - 07/06/2024 OBSTETRICS REPORT (Signed Final 07/06/2024 14:16) PATIENT INFO: ID #: [id number] : [birth year] (29 yrs)(F) Name: LAURA MARIE Visit Date: 07/06/2024 10:07 PERFORMED BY: Attending: Jessica Leonard MD Performed By: Rae Rhodes RDMS Referred By: Sree Francisco DO Ref. 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 By: LMP (12/13/23) ALEJANDRA: 1/4/25 DOPPLER - VESSELS: Umbilical Artery S/D %tile RI %tile PI %tile PSV (cm/s) 2.82 46 0.66 57 0.97 51 46.1 CERVIX UTERUS ADNEXA: Uterus Gravid uterus Jessica Leonard MD Electronically Signed Final Report 07/06/2024 14:16 IMPRESSION: IMPRESSION: 1. Single intrauterine gestation with a working diagnosis of FGR. 2. Circumvallate placenta again noted with a well circumscribed cystic structure, measuring 1.3 x 1.5 x 1.3 cm, most consistent with placental cyst. 3. Umbilical artery Doppler S/D ratio in normal range. 4. Amniotic fluid volume assessment (DVP) is normal. RECOMMENDATIONS: 1. Please see [facility] recommendations from prior clinical and/or ultrasound report documentation. 2. Continue serial umbilical artery Doppler evaluation every 2 weeks through [facility]. 3. Continue serial growth ultrasounds every 4 weeks through [facility]. 4. Continue testing as previously recommended. 5. Subsequent follow up or other follow up as clinically determined by primary OB provider unless otherwise specified by [facility]. 6. Results forwarded to ordering provider so they can follow up with the patient as necessary. us Donna Alcantara MD G US ORDERABLES Final Re sult documented in this encounter Visit Diagnoses Diagnosis Poor growth affecting management of mother in second trimester, single or unspecified fetus- Primary documented in this encounter Care Teams Manager Division Relationship Specialty Start Date End Date Pcp, [place] [address] PCP - General Family Medicine 08/13/24 documented as of this encounter
--- OUTSIDE RECORDS SUMMARY | 2025-04-12 15:12 | XMS_ITS | Encounter Summary ---
Author Organization [facility] Address [address] [place] [address] Care Team Providers Care Liner Inserter Name Role Phone Unavailable Primary Care Provider Unavailabl e Encounter Details Date Type Department Care Team (Late Contact Info) Description 02/26/2024 Abstract [facility] [address] [address] Estefani Sunshine LPN [address] [place] [address] Social History Tobacco Use Types Packs/Day Years [...] PM EDT Procedure Visit [facility] [address] [facility] [place] [address] Sree Francisco DO [address] [place], [place] [address] 04/17/2026 11:00 AM EDT Procedure Visit [facility] [address] [facility] [place] [address] Sree Francisco DO [address] [facility] [place] [address] documented as of this encounter Visit Diagnoses Not on filedocumented in this encounter
--- OUTSIDE RECORDS SUMMARY | 2025-04-12 15:12 | XMS_ITS | Encounter Summary ---
Author Organization [facility] Address [address] [place] [address] Care Team Providers Care Weigher And Crusher Name Role Phone Unavailable Primary Care Provider Unavailabl e Encounter Details Date Type Department Care Team (Late Contact Info) Description 03/10/2024 Abstract [facility] [address] [facility] [place] [place] [phone] Rola Lovell LPN 102 [facility] [place] [address] Social History Tobacco Use Types Packs/Day Years [...] PM EDT Procedure Visit [facility] [address] [facility] [place] [address] Sree Francisco DO [address] [facility] [place] [address] 04/17/2026 11:00 AM EDT Procedure Visit [facility] [address] [facility] [place] [address] Sree Francisco DO [address] [facility] [place] [address] documented as of this encounter Goals Goal Patient Goal Type Associated Problems Recent Progress Patient-Stated? Author Reminders Care Plan OB Reminders No Open Scheduling, Background documented as of this encounter Visit Diagnoses Not on filedocumented in this encounter Additional Health Concerns Active Problems Noted Date Diagnosed Date OB Reminders 02/28/2024 documented as of this encounter
--- OUTSIDE RECORDS SUMMARY | 2025-04-12 15:12 | XMS_ITS | Encounter Summary ---
Author Organization [facility] Address [address] [place] [address] Care Team Providers Care Ornamental Bronze Worker Name Role Phone Unavailable Primary Care Provider Unavailabl e Encounter Details Date Type Department Care Team (Late Contact Info) Description 03/02/2024 Abstract [facility] [address] [place] [address] [place] [phone] Sree Francisco DO [facility] [address] [place], [place] [address] Social History Tobacco Use Types Packs/Day Years [...] 3:30 PM EDT Procedure Visit [facility] [place] [phone] Sree Francisco DO [facility] [address] [place], [facility] 04/17/2026 11:00 AM EDT Procedure Visit [facility] [address] [facility] [place] [address] Sree Francisco DO [address] [facility] [place] [address] documented as of this encounter Goals Goal Patient Goal Type Associated Problems Recent Progress Patient-Stated? Author Reminders Care Plan OB Reminders No Open Scheduling, Background documented as of this encounter Visit Diagnoses Not on filedocumented in this encounter Additional Health Concerns Active Problems Noted Date Diagnosed Date OB Reminders 02/28/2024 documented as of this encounter
--- OUTSIDE RECORDS SUMMARY | 2025-04-12 15:12 | XMS_ITS | Encounter Summary ---
Author Organization [facility] Address [address] [place] [place] [address] Care Team Providers Care Flitch Hanger Name Role Phone Unavailable Primary Care Provider Unavailabl e Encounter Details Date Type Department Care Team (Late Contact Info) Description 04/22/2024 Abstract [facility] [address] [place] [address] [place] [phone] Sree Francisco DO [facility] [address] [place], [place] [address] Social History Tobacco Use Types Packs/Day Years [...] 3:30 PM EDT Procedure Visit [facility] [place] [phone] Sree Francisco DO [facility] [address] [place], [place] [address] 04/17/2026 11:00 AM EDT Procedure Visit [facility] [address] [facility] [place] [address] Sree Francisco DO [address] [facility] [place] [address] documented as of this encounter Goals Goal Patient Goal Type Associated Problems Recent Progress Patient-Stated? Author Reminders Care Plan OB Reminders No Open Scheduling, Background documented as of this encounter Visit Diagnoses Not on filedocumented in this encounter Additional Health Concerns Active Problems Noted Date Diagnosed Date OB Reminders 02/28/2024 documented as of this encounter
--- OUTSIDE RECORDS SUMMARY | 2025-04-12 15:12 | XMS_ITS | Encounter Summary ---
Author Organization [facility] Address [address] [place] [place] [address] Care Team Providers Care Passenger Relations Representative Name Role Phone Unavailable Primary Care Provider Unavailabl e Encounter Details Date Type Department Care Team (Late Contact Info) Description 03/22/2024 Abstract [facility] [address] [place] [address] [place] [address] Sree Francisco DO [facility] [address] [place], [place] [address] Social History Tobacco Use Types Packs/Day Years [...] 3:30 PM EDT Procedure Visit [facility] [place] [phone] Sree Francisco DO [facility] [address] [place], [facility] 04/17/2026 11:00 AM EDT Procedure Visit [facility] [address] [facility] [place] [address] Sree Francisco DO [address] [facility] [place] [address] documented as of this encounter Goals Goal Patient Goal Type Associated Problems Recent Progress Patient-Stated? Author Reminders Care Plan OB Reminders No Open Scheduling, Background documented as of this encounter Visit Diagnoses Not on filedocumented in this encounter Additional Health Concerns Active Problems Noted Date Diagnosed Date OB Reminders 02/28/2024 documented as of this encounter
--- OUTSIDE RECORDS SUMMARY | 2025-04-12 15:12 | XMS_ITS | Encounter Summary ---
Author Organization [facility] Address [address] [place] [place] [address] Care Team Providers Care Water Leak Repairer Name Role Phone Unavailable Primary Care Provider Unavailabl e Encounter Details Date Type Department Care Team (Late Contact Info) Description 05/05/2024 Abstract [facility] [address] [place] [address] [place] [phone] Sree Francisco DO [facility] [address] [place], [place] [address] Social History Tobacco Use Types Packs/Day Years [...] 3:30 PM EDT Procedure Visit [facility] [place] [phone] rSee Francisco DO [facility] [address] [place], [place] [address] 04/17/2026 11:00 AM EDT Procedure Visit [facility] [address] [facility] [address] Sree Francisco DO [address] [facility] [place] [address] documented as of this encounter Goals Goal Patient Goal Type Associated Problems Recent Progress Patient-Stated? Author Reminders Care Plan OB Reminders No Open Scheduling, Background documented as of this encounter Visit Diagnoses Not on filedocumented in this encounter Additional Health Concerns Active Problems Noted Date Diagnosed Date OB Reminders 02/28/2024 documented as of this encounter
--- OUTSIDE RECORDS SUMMARY | 2025-04-12 15:12 | XMS_ITS | Encounter Summary ---
Author Organization [facility] Address [address] [facility] [address], [address] [place] [address] Care Team Providers Care Orchid Worker Name Role Phone Annabella Marti WEB SITE DEVELOPER - DEEP SUBMERGENCE VEHICLE OPERATOR Primary Care Provide r Encounter Details Date Type Department Care Team (Late st Contact Info) Description 09/18/2015 FollowUp Telephone Encounter [facility] [address] [facility] [place] [address] Jaelyn Taylor RN Social History Tobacco Use Types Packs/Day Years Used Date Smoking Tobacco: Never Alcohol Use Standard Drinks/Week Comments No 0 (1 standard drink = 0.6 oz pur e alcohol) Comments No Sex and Gender Information Value Date Recorded Sex Assigned at Not on file Legal Sex Female 11:43 AM EST Gender Identity Not on file Sexual Orientation Not on file documented as of this encounter Plan of Treatment Upcoming Encounters Date Type Department Care Team (Late st Contact Info) Description 04/20/2025 1:30 PM EDT Office Visit [facility] GENERAL SURGERY Part of [address] [place] [address] Tali Pulliam DO [address] [place] [address] [address] [place] [address] Rectal bleeding 10/31/2025 8:00 AM EST Office Visit [facility] Primary Care [address] [place] [address] [address] [place], [place] [id number] Annabella Marti, WEB SITE DEVELOPER - DEEP SUBMERGENCE VEHICLE OPERATOR [address] [place] [address] [address] [place] [address] wellness + zoloft med check . documented as of this encounter Visit Diagnoses Not on filedocumented in this encounter Care Teams Orchid Worker Relationship Specialty Start Date End Date Annabella Marti, WEB SITE DEVELOPER - DEEP SUBMERGENCE VEHICLE OPERATOR [address] [place] [address] [address] [place] [address] PCP - General Family Nurse Practitioner 02/19/23 documented as of this encounter
--- OUTSIDE RECORDS SUMMARY | 2025-04-12 15:12 | XMS_ITS | Encounter Summary ---
Author Organization [facility] Address [address] [place] [address] Care Team Providers Care Physician Specialist Name Role Phone Unavailable Primary Care Provider Unavailabl e Encounter Details Date Type Department Care Team (Late Contact Info) Description 03/10/2024 Abstract [facility] [address] [facility] [place] [phone] Rola Lovell LPN 102 [facility] [address] [place] [address] Social History Tobacco Use Types Packs/Day Years [...] PM EDT Procedure Visit [facility] [address] [facility] [place] [phone] Sree Francisco DO [address] [facility] [place] [address] 04/17/2026 11:00 AM EDT Procedure Visit [facility] [address] [facility] [place] [address] rSee Francisco DO [address] [facility] [place] [address] documented as of this encounter Goals Goal Patient Goal Type Associated Problems Recent Progress Patient-Stated? Author Reminders Care Plan OB Reminders No Open Scheduling, Background documented as of this encounter Visit Diagnoses Not on filedocumented in this encounter Additional Health Concerns Active Problems Noted Date Diagnosed Date OB Reminders 02/28/2024 documented as of this encounter
--- OUTSIDE RECORDS SUMMARY | 2025-04-12 15:12 | XMS_ITS | Encounter Summary ---
Author Organization [employer] Address [id number] [address] [place] [address] Care Team Providers Care Library Technician Name Role Phone Pcp, Not In System Primary Care Provider Unavail able Encounter Details Date Type Department Care Team (Late st Contact Info) Description 08/16/2024 Telephone [facility] Women's Services [address] [place] [address] Gisell Bonilla, RN Social History Tobacco Use Types Packs/Day Years Used Date Smoking Tobacco: Never Smokeless Tobacco: Never Alcohol Use Standard Drinks/Week Comments Not Currently 0 (1 standard drink = 0.6 oz pur e alcohol) [facility] Utilities Answer Date Recorded In the past 12 months has th e electric, gas, oil, or water company threatened to shut off services in your home? No 08/13/2024 AUDIT-C Answer Date Recorded Q1: How often do you have a drink containing alc ohol? Monthly or less 08/13/2024 Q2: How many drinks containi ng alcohol do you have on a typical day when you are drinking? 1 or 2 08/13/2024 Q3: How often do you have si x or more drinks on one occasion? Never 08/13/2024 Overall Financial Resource Strain (CARDIA) Answe r Date Recorded How hard is it for you to pa y for the very basics like food, housing, medical care, and heating? Not hard at all 08/17/2024 PHQ-2 Answer Date Recorded Total Score 0 08/17/2024 PRAPARE - Transportation Answer Date Re corded In the past 12 months, has l ack of transportation kept you from medical appointments or from getting medications? No 07/17 In the past 12 months, has l ack of transportation kept you from meetings, work, or from getting things needed for daily living? No 08/13/2024 Melcroft Depression Scale Answer Date Recorded Melcroft Depression Scale Total 1 08/17/2024 The thought of harming myself has occurred to me . Never 08/17/2024 Housing Instability Answer Date Recorde d Are you worried or concerned that in the next two months you may not have stable housing that you own, rent or stay in as a part of a household? No 08/16/2024 Childcare Answer Date Recorded Do problems getting child ca re make it difficult for you to work or study? No 08/17/2024 Hunger Screening Answer Date Recorded Within the past 12 months we worried whether our food would run out before we got money to buy more. Never True 08/17/2024 Within the past 12 months th food we bought just didn't last and we didn't have money to get more. Never True 08/17/2024 Comments No Sex and Gender Information Value Date Recorded Sex Assigned at Not on file Legal Sex Female 1:15 PM EDT Gender Identity Not on file Sexual Orientation Not on file documented as of this encounter Miscellaneous Notes * Telephone Encounter - Gisell Bonilla RN - 08/16/2024 12:05 PM EST Call received from patient regarding wound care; patient reports wound care gave her an appointmenton but she does not know how to dress her wound until then. Patient reports she will place a call back to wound care and see if they are able to move up her appointment as this is for daily dressing changes. Patient reports she will call back if unable to get appointment earlier. * Telephone Encounter - Gisell Bonilla RN - 08/16/2024 12:05 PM EST Return call received from patient; patient reports she will be able to get into wound care tomorrow. documented in this encounter Plan of Treatment Not on file documented as of this encounter Visit Diagnoses Not on filedocumented in this encounter Additional Health Concerns Assessment Noted Time PHQ-9 Depression Total Score: 0 08/16/20 24 8:16 AM EST documented as of this encounter Care Teams Library Technician Relationship Specialty Start Date End Date Pcp, [place] [address] PCP - General Family Medicine 08/13/24 documented as of this encounter
--- OUTSIDE RECORDS SUMMARY | 2025-04-12 15:12 | XMS_ITS | Encounter Summary ---
Author Organization [facility] Address [address] [place] [address] Care Team Providers Care Sweep Molder Name Role Phone Unavailable Primary Care Provider Unavailabl e Encounter Details Date Type Department Care Team (Late Contact Info) Description 03/09/2024 Abstract [facility] [address] [facility] [address] Rola Lovell LPN 102 [facility] [address] [address] Social History Tobacco Use Types Packs/Day Years [...] PM EDT Procedure Visit [facility] [address] [facility] [phone] Sree Francisco DO [address] [facility] [place] [address] 04/17/2026 11:00 AM EDT Procedure Visit [facility] [address] [facility] [place] [address] Sree Francisco DO [address] [facility] [place] [address] documented as of this encounter Goals Goal Patient Goal Type Associated Problems Recent Progress Patient-Stated? Author Reminders Care Plan OB Reminders No Open Scheduling, Background documented as of this encounter Visit Diagnoses Not on filedocumented in this encounter Additional Health Concerns Active Problems Noted Date Diagnosed Date OB Reminders 02/28/2024 documented as of this encounter
--- OUTSIDE RECORDS SUMMARY | 2025-04-12 15:12 | XMS_ITS | Encounter Summary ---
Author Organization [facility] Address [address] [place] [address] Care Team Providers Care Beef Splitter Name Role Phone Unavailable Primary Care Provider Unavailabl e Encounter Details Date Type Department Care Team (Late Contact Info) Description 02/28/2024 Abstract [facility] [address] [place] [address] [place] [phone] Sree Francisco DO [facility] [address] [place], [place] [address] Social History Tobacco Use Types Packs/Day Years [...] EDT Procedure Visit [facility] [place] [phone] Sree Francisco DO [facility] [address] [place], [place] [address] 04/17/2026 11:00 AM EDT Procedure Visit [facility] [address] [facility] [place] [phone] Sree Francisco DO [address] [facility] [place] [address] documented as of this encounter Goals Goal Patient Goal Type Associated Problems Recent Progress Patient-Stated? Author Reminders Care Plan OB Reminders No Open Scheduling, Background documented as of this encounter Visit Diagnoses Not on filedocumented in this encounter Additional Health Concerns Active Problems Noted Date Diagnosed Date OB Reminders 02/28/2024 documented as of this encounter
--- OUTSIDE RECORDS SUMMARY | 2025-04-12 15:12 | XMS_ITS | Encounter Summary ---
Author Organization [facility] Address [address] [place] [place] [address] Care Team Providers Care Real Estate Assessor Name Role Phone Unavailable Primary Care Provider Unavailabl e Encounter Details Date Type Department Care Team (Late Contact Info) Description 04/22/2024 Abstract [facility] [address] [place] [address] [place] [phone] Sree Francisco DO [facility] [address] [place], [place] [address] Social History Tobacco Use Types Packs/Day Years [...] 3:30 PM EDT Procedure Visit E[facility] [place] [phone] Sree Francisco DO [facility] [address] [place], [place] [address] 04/17/2026 11:00 AM EDT Procedure Visit [facility] [address] [facility] [phone] Sree Francisco DO [address] [facility] [place] [address] documented as of this encounter Goals Goal Patient Goal Type Associated Problems Recent Progress Patient-Stated? Author Reminders Care Plan OB Reminders No Open Scheduling, Background documented as of this encounter Visit Diagnoses Not on filedocumented in this encounter Additional Health Concerns Active Problems Noted Date Diagnosed Date OB Reminders 02/28/2024 documented as of this encounter
--- OUTSIDE RECORDS SUMMARY | 2025-04-12 15:12 | XMS_ITS | Clinical Summary ---
Author Organization [facility] Address [address] [place] [address] Care Team Providers Care Professional Soccer Player Name Role Phone Unavailable Primary Care Provider Unavailabl e Allergies Active Allergy Reactions Criticality Noted Date Comments Cefprozil Hives 1995 Sodium Chloride 08/16/2024 Medications sertraline (Zoloft) 25 MG tablet Take 1 tablet by mouth in the morning. 10/28/2023 Active Hospital, Clinic, or Other Facility Administered Medication Ordered Dose Route Frequency Start Date End Date Status Levonorgestrel intrauterine device 52 mgIndications:Encounter for insertion of Mirena IUD 52 mg IU Continuous 11/09/2024 11/08/2029 Active Encounters Date Type Department Care Team Description 04/12/2025 9:00 AM EDT Office Visit [facility] [address] [place] [address] Sree Francisco DO Well woman exam with routine gynecological exam 04/12/2025 Bamboo flowsheet [facility] [address] [place] [address] Sree Francisco DO 04/11/2025 Travel from Last 3 Months Family History Medical History Relation Name Comments Diabetes Father Louis Daryalk Heart disease Father Louis Schalk Hypertension Father Louis Schalk Cancer Maternal Grandfather Cisco Jaison Cancer Maternal Grandmother Breast cancer Mother Dawcharles Lackeylk Hypertension Mother Dawphyllisa Schalk Heart disease Paternal Grandfather Relation Name Status Comments Father Louis Schalk Maternal Grandfather Cisco Blackwood Maternal Grandmother Mother Caden Garcia Paternal Grandfather Social History Tobacco Use Types Packs/Day Years Used Date Smoking Tobacco: Never Smokeless Tobacco: Never Tobacco Cessation:Counseling Given: Not Answered Alcohol Use Standard Drinks/Week Comments Not Currently 0 (1 standard drink = 0.6 oz pur e alcohol) Comments Unknown Sex and Gender Information Value Date Recorded Sex Assigned at Female 10/23/2023 8:38 AM EST Legal Sex Female 11:36 PM EDT Gender Identity Female 10/23/2023 8:38 AM EST Sexual Orientation Straight 10/23/2023 8: 38 AM EST Last Filed Vital Signs Vital Sign Reading Time Taken Comments Blood Pressure 116/78 04/12/2025 9:03 AM EDT Pulse - - Temperature - - Respiratory Rate - - Oxygen Saturation - - Inhaled Oxygen Concentration - - Weight 98.2 kg (216 lb 6.4 oz) 04/12/2025 9:03 A M EDT Height 162.6 cm (5' 4 ) 02/16/2024 1:27 PM EDT Body Mass Index 37.14 02/16/2024 1:27 PM EDT Plan of Treatment Upcoming Encounters Date Type Department Care Team (Late st Contact Info) Description 04/25/2025 3:30 PM EDT Procedure Visit [facility] [address] [facility] [place] [address] Sree Francisco, [address] [place], [place] [phone] 04/17/2026 11:00 AM EDT Procedure Visit [facility] [address] [place] [phone] Sree Francisco DO [address] [place] [address] Goals Goal Patient Goal Type Associated Problems Recent Progress Patient-Stated? Author Reminders Care Plan OB Reminders No Open Scheduling, Background Additional Health Concerns Active Problems Noted Date Diagnosed Date OB Reminders 02/28/2024 Insurance [facility]
--- OUTSIDE RECORDS SUMMARY | 2025-04-12 15:12 | XMS_ITS | Encounter Summary ---
Author Organization [facility] Address [address] [place] [address] Care Team Providers Care Brake Machine Operator Name Role Phone Unavailable Primary Care Provider Unavailabl e Encounter Details Date Type Department Care Team (Late Contact Info) Description 02/16/2024 Abstract [facility] [address] [facility] [place] [phone] Rola Lovell LPN [address] [facility] [place] [place] [address] Social History Tobacco Use Types Packs/Day Years [...] PM EDT Procedure Visit [facility] [address] [facility] [place] [place] [phone] Sree Francisco DO [address] [facility] [place] [address] 04/17/2026 11:00 AM EDT Procedure Visit [facility] [address] [facility] [place] [place] [address] Sree Francisco DO [address] [facility] [place] [address] documented as of this encounter Visit Diagnoses Not on filedocumented in this encounter
--- OUTSIDE RECORDS SUMMARY | 2025-04-12 15:12 | XMS_ITS | Encounter Summary ---
Author Organization [facility] Address [address] [place] [address] Care Team Providers Care Rn Family Name Role Phone Unavailable Primary Care Provider Unavailabl e Encounter Details Date Type Department Care Team (Late Contact Info) Description 04/12/2025 Bamboo flowsheet [facility] [place] [address] Sree Francisco DO [facility] [address] [place], [place] [address] Social History Tobacco Use Types Packs/Day Years [...] Description 04/25/2025 3:30 PM EDT Procedure Visit [facility] [place] [address] Sree Francisco DO [facility] [address] [place], [place] [address] 04/17/2026 11:00 AM EDT Procedure Visit [facility] [address] [facility] [place] [address] Sree Francisco DO [address] [place] [address] documented as of this encounter Goals Goal Patient Goal Type Associated Problems Recent Progress Patient-Stated? Author Reminders Care Plan OB Reminders No Open Scheduling, Background documented as of this encounter Visit Diagnoses Not on filedocumented in this encounter Additional Health Concerns Active Problems Noted Date Diagnosed Date OB Reminders 02/28/2024 documented as of this encounter
--- OUTSIDE RECORDS SUMMARY | 2025-04-12 15:12 | XMS_ITS | Encounter Summary ---
Author Organization [facility] Address [address] [place] [address] Care Team Providers Care Souvenir [address] Vendor Name Role Phone Unavailable Primary Care Provider Unavailabl e Encounter Details Date Type Department Care Team (Late Contact Info) Description 02/25/2024 Abstract [facility] [address] [place] [address] [place] [phone] Sree Francisco DO [facility] [address] [place], [place] [address] Social History Tobacco Use Types Packs/Day Years [...] 3:30 PM EDT Procedure Visit [facility] [place] [address] Sree Francisco DO [facility] [address] [place], [place] [address] 04/17/2026 11:00 AM EDT Procedure Visit [facility] [address] [facility] [place] [address] Sree Francisco DO [address] [facility] [place] [address] documented as of this encounter Visit Diagnoses Not on filedocumented in this encounter
--- OUTSIDE RECORDS SUMMARY | 2025-04-12 15:12 | XMS_ITS | Encounter Summary ---
Author Organization [facility] Address [address] [place] [address] Care Team Providers Care Take Out Waiter/Waitress Name Role Phone Unavailable Primary Care Provider Unavailabl e Encounter Details Date Type Department Care Team (Late st Contact Info) Description 01/06/2024 Abstract [facility] [address] [place] [address] Rola Lovell LPN [address] [place] Lucien [place], [facility] Social History Tobacco Use Types Packs/Day Years Used Date Smoking Tobacco: Never Comments Unknown Sex and Gender Information Value [...] 3:30 PM EDT Procedure Visit [facility] [address] [place] [address] Sree Francisco DO [address] [facility] [address] [place], [place] [address] 04/17/2026 11:00 AM EDT Procedure Visit [facility] [place] [address] Sree Francisco, [address] [place] [address] documented as of this encounter Visit Diagnoses Not on filedocumented in this encounter
--- OUTSIDE RECORDS SUMMARY | 2025-04-12 15:12 | XMS_ITS | Encounter Summary ---
Author Organization [facility] Address [address] [place] [address] Care Team Providers Care Account Development Manager Name Role Phone Unavailable Primary Care Provider Unavailabl e Encounter Details Date Type Department Care Team (Late st Contact Info) Description 03/09/2024 Clinisync Result Encounter NOM[facility] External Department Unsolicited Екатерина Francisco, DO [address] [place], [place] [address] Social History Tobacco Use Types Packs/Day Years [...] PM EDT Procedure Visit [facility] [address] [place], [place] [address] [phone] Екатерина Francisco DO [address] [place], [facility] 04/17/2026 11:00 AM EDT Procedure Visit [facility] [place] [address] Екатерина Francisco, DO [address] [facility] [address] [place] [address] documented as of this encounter Goals Goal Patient Goal Type Associated Problems Recent Progress Patient-Stated? Author Reminders Care Plan OB Reminders No Open Scheduling, Background documented as of this encounter Procedures Procedure Name Priority Date/Time Associated Diagnosis Comments US OB CERVICAL LENGTH 03/09/2024 2:34 PM EDT documented in this encounter Results * US OB CERVICAL LENGTH (03/09/2024 2:34 PM EDT) Anatomical Region Laterality Modality Other 03/09/2024 2:34 PM EDT Narrative 03/09/2024 2:36 PM EDT The [address] [address] Ultrasound Report Signed Patient: LAURA OROSCO MR#: [id number] : 1995 Acct:[id number] Age/Sex: 28 / F ADM Date: 03/09/24 Loc: US Attending Dr: Екатерина Francisco D.O. Ordering Physician: Екатерина Francisco D.O. Date of Service: 03/09/24 Procedure(s): US OB cervical length Accession Number(s): [id number] cc: Екатерина Francisco D.O.; Physician,Non-Staff M.Tom The [address] [address] Patient Name: LAURA OROSCO MRN: [id number] date: 1995 Sex: F Assigned Patient Location: US Current Patient Location: US Accession/Order Number: [id number] Exam Date: 03/09/2024 14:00 Report Date: 03/09/2024 14:34 At the request of: ЕКАТЕРИНА FRANCISCO Procedure: US OB cervical length EXAMINATION: US OB cervical length HISTORY: VAGINAL BLEEDING, SCREENING FOR CERVICAL LENGTH Z36.86 COMPARISON: No relevant comparison available. FINDINGS: position: Variable CRL: 4.91 cm, 11 weeks 5 days Gestational sac normal morphology Heart rate: 160 bpm Cervix: 4.1 cm closed Identified in the lower uterine segment is a focal area of hypoechogenicity measuring 1.3 x 1.5 x 1.1 cm Clinical age: 12 weeks 3 days Clinical ALEJANDRA: 09/18/2024 Ultrasound age: 11 weeks 5 days Ultrasound ALEJANDRA: 09/23/2024 US/US OB cervical length IMPRESSION: Area of hypoechogenicity in the lower uterine segment, I suspect perigestational hemorrhage measuring 1.5 cm Viable uterine gestation measuring 11 weeks 5 days Electronically authenticated by: KRISTINE QUINONES Date: 03/09/2024 14:34 Dictated By: Kristine Quinones M.D. Signed By: 03/09/241435 DD/ 33 TD/TT: Claims Technician: Procedure Note Radiology, Radiologist, - 03/09/2024 [place] [address] Ultrasound Report Signed Patient: LAURA OROSCO MMR#: [id number] : 1995Acct:[id number] Age/Sex: 28 / FADM Date: 03/09/24 Loc: US Attending Dr: Екатерина Francisco D.O. Ordering Physician: Екатерина Francisco D.O. Date of Service: 03/09/24 Procedure(s): US OB cervical length Accession Number(s): [id number] cc: Екатерина Francisco D.O.; Physician,Non-Staff Gu[place]upe The [place] [id number] Patient Name: LAURA OROSCO MRN: [id number] date: 1995 Sex: F Assigned Patient Location: US Current Patient Location: US Accession/Order Number: [id number] Exam Date: 03/09/2024 14:00 Report Date: 03/09/2024 14:34 At the request of: ЕКАТЕРИНА FRANCISCO Procedure: US OB cervical length EXAMINATION: US OB cervical length HISTORY: VAGINAL BLEEDING, SCREENING FOR CERVICAL LENGTH Z36.86 COMPARISON: No relevant comparison available. FINDINGS: position: Variable CRL: 4.91 cm, 11 weeks 5 days Gestational sac normal morphology Heart rate: 160 bpm Cervix: 4.1 cm closed Identified in the lower uterine segment is a focal area ofhypoechogenicity measuring 1.3 x 1.5 x 1.1 cm Clinical age: 12 weeks 3 days Clinical ALEJANDRA: 09/18/2024 Ultrasound age: 11 weeks 5 days Ultrasound ALEJANDRA: 09/23/2024 US/US OB cervical length IMPRESSION: Area of hypoechogenicity in the lower uterine segment, I suspect perigestational hemorrhage measuring 1.5 cm Viable uterine gestation measuring 11 weeks 5 days Electronically authenticated by: KRISTINE QUINONES Date: 03/09/2024 14:34 Dictated By: Kristine Quinones M.D. Signed By:03/09/24 1436 DD/ 33 TD/TT: Claims Technician: us Екатерина Nolan DO [facility] Final Result documented in this encounter Visit Diagnoses Not on filedocumented in this encounter Additional Health Concerns Active Problems Noted Date Diagnosed Date OB Reminders 02/28/2024 documented as of this encounter
--- OUTSIDE RECORDS SUMMARY | 2025-04-12 15:12 | XMS_ITS | Encounter Summary ---
Author Organization [facility] tem Address [id number] [address] [place] [address] Care Team Providers Care Luggage Repairer Name Role Phone Pcp, Not In System Primary Care Provider Unavail able Encounter Details Date Type Department Care Team (Late st Contact Info) Description 06/01/2024 Orders Only Maternal- Medicine at [facility] [address] [place] [address] Tomeka Nolasco RN Social History Tobacco Use Types Packs/Day [...] on filedocumented in this encounter Care Teams Luggage Repairer Relationship Specialty Start Date End Date Pcp, [place] [address] PCP - General Family Medicine 08/13/24 documented as of this encounter
--- OUTSIDE RECORDS SUMMARY | 2025-04-12 15:12 | XMS_ITS | Encounter Summary ---
Author Organization [facility] tem Address [id number] [address] [place] [address] Care Team Providers Care Dehorner Name Role Phone Pcp, Not In System Primary Care Provider Unavail able Encounter Details Date Type Department Care Team (Late st Contact Info) Description 07/19/2024 Orders Only Maternal- Medicine at [facility] [address] [place] [address] Tomeka Nolasco RN Social History Tobacco Use [...] on filedocumented in this encounter Care Teams Dehorner Relationship Specialty Start Date End Date Pcp, [place] [address] PCP - General Family Medicine 08/13/24 documented as of this encounter
--- OUTSIDE RECORDS SUMMARY | 2025-04-12 15:12 | XMS_ITS | Encounter Summary ---
Author Organization [facility] Address [address] [place] [address] Care Team Providers Care Rehabilitation Coordinator Name Role Phone Unavailable Primary Care Provider Unavailabl e Encounter Details Date Type Department Care Team (Late Contact Info) Description 04/05/2024 Abstract [facility] [address] [place] [address] [place] [address] Sree Francisco DO [facility] [address] [place], [place] [address] Social History Tobacco Use Types Packs/Day Years [...] 3:30 PM EDT Procedure Visit [facility] [place] [phone] Sree Francisco DO [facility] [place] [address] 04/17/2026 11:00 AM EDT Procedure Visit [facility] [address] [facility] [place] [place] [address] Sree Francisco DO [address] [facility] [place] [address] documented as of this encounter Goals Goal Patient Goal Type Associated Problems Recent Progress Patient-Stated? Author Reminders Care Plan OB Reminders No Open Scheduling, Background documented as of this encounter Visit Diagnoses Not on filedocumented in this encounter Additional Health Concerns Active Problems Noted Date Diagnosed Date OB Reminders 02/28/2024 documented as of this encounter
--- OUTSIDE RECORDS SUMMARY | 2025-04-12 15:12 | XMS_ITS | Encounter Summary ---
Author Organization [facility] tem Address [facility]-[id number] [address] [place] [address] Care Team Providers Care Dust Collector Operator Name Role Phone Pcp, Not In System Primary Care Provider Unavail able Encounter Details Date Type Department Care Team (Late st Contact Info) Description 07/05/2024 Orders Only Maternal- Medicine at [facility] [address] [place] [phone] Tomeka Nolasco RN History of pulmonary embolus (PE) Social History Tobacco Use Types Packs/Day Years [...] Procedure Name Priority Date/Time Associated Diagnosis Comments BETA-2 GLYCOPROTEIN ANTIBODIES Routine 06/14/2024 History of pulmonary embolus (PE) DRVVT Routine 06/14/2024 History of pulmonary embolus (PE) documented in this encounter Results * Beta-2 glycoprotein antibodies (06/14/2024) Beta-2 Glyco 1 IgA see scanned results SUNQUEST 06/14/2024 Jessica Leonard MD LAB BLOOD ORDERABLES Final Resul t Performing Organization Address [facility] de Phone Number SUNQUEST * DRVVT (06/14/2024) DRVVT Screen see scanned report SUNQUEST 06/14/2024 Jessica Leonard MD LAB BLOOD ORDERABLES Final Resul t Performing Organization Address [facility] de Phone Number SUNQUEST documented in this encounter Visit Diagnoses Diagnosis History of pulmonary embolus (PE) documented in this encounter Care Teams Dust Collector Operator Relationship Specialty Start Date End Date Pcp, [place] [address] PCP - General Family Medicine 08/13/24 documented as of this encounter
--- OUTSIDE RECORDS SUMMARY | 2025-04-12 15:13 | XMS_ITS | Encounter Summary ---
Author Organization [facility] Address [address] [place] [address] Care Team Providers Care Produce Sorter Name Role Phone Unavailable Primary Care Provider Unavailabl e Encounter Details Date Type Department Care Team (Late Contact Info) Description 08/06/2024 Abstract [facility] [address] [place] [address] [place] [phone] Sree Francisco DO [facility] [address] [place], [place] [address] Social History Tobacco Use Types Packs/Day Years [...] 3:30 PM EDT Procedure Visit [facility] [place] [phone] Sree Francisco DO [facility] [address] [place], [place] [address] 04/17/2026 11:00 AM EDT Procedure Visit [facility] [address] [facility] [place] [phone] Sree Francisco DO [address] [facility] [place] [address] documented as of this encounter Goals Goal Patient Goal Type Associated Problems Recent Progress Patient-Stated? Author Reminders Care Plan OB Reminders No Open Scheduling, Background documented as of this encounter Visit Diagnoses Not on filedocumented in this encounter Additional Health Concerns Active Problems Noted Date Diagnosed Date OB Reminders 02/28/2024 documented as of this encounter
--- OUTSIDE RECORDS SUMMARY | 2025-04-12 15:13 | XMS_ITS | Clinical Summary ---
Author Organization [facility] Address [address], [address] [place] [address] Care Team Providers Care Assistant Oceanographer Name Role Phone Annabella Marti HOUSEKEEPING ROOM ATTENDANT - MANAGER ONCOLOGY Primary Care Provide r Allergies Active Allergy Reactions Criticality Noted Date Comments Cefprozil Hives 05/10/2013 Sodium Chloride 08/16/2024 Medications sertraline (ZOLOFT) 25 MG tablet Take 1 tablet by mouth daily 90 tablet 3 11/01/19 25 Active levonorgestrel (MIRENA) IUD 52 mg 1 each by IntraUTERine route continuous 11/09/19 25 030 Active hydrocortisone (ANUSOL-HC) [address] 1 suppository rectally in the morning and 1 suppository in the evening. Do all this for 14 days. 28 suppository 03/28/20 25 025 Active Problems Patient Care Coordination No te Formatting of this note migh t be different from the original. NO OCP - DT pulmonary embolism Problem Noted Date Diagnosed Date Moderate mixed hyperlipidemia not requiring stat in therapy 12/07/2024 Hx pulmonary embolism 11/01/2024 PCOS (polycystic ovarian syndrome) 03/23/2023 Dysmenorrhea treated with oral contraceptive 03/2016 Iron deficiency anemia 09/14/2015 Morbid obesity due to excess calories 09/13/2015 Anxiety 04/28/2015 Resolved Problems Problem Noted Date Diagnosed Date Resolved Date Venous thromboembolism (VTE) confirmed by diagnostic testing 03/21/2016 11/01/2024 Embolism, pulmonary with infarction 09/21/2015 11/01/2024 Acute pulmonary embolism 09/13/2015 Encounters Date Type Department Care Team Description 03/28/2025 8:20 AM EDT Office Visit [facility] [address] [place] [address] [address] [place] [address] Annabella Marti, HOUSEKEEPING ROOM ATTENDANT - MANAGER ONCOLOGY Rectal bleeding (Primary Dx); Rectal pain; Hemorrhoids, unspecified hemorrhoid type from Last 3 Months Immunizations Immunization Administration Dates Next Due DTaP 03/05/2001, 7,1996,08/09,1996 Hepatitis A 10/06/2013,02/25/2013 Hepatitis B (Engerix-B) 1996,1996, Hib PRP-OMP, PEDVAXHIB, (age 2m-6y, Adlt Risk), IM, 0.5mL 1996,1996,1996,03/14 Influenza Virus Vaccine 08/12/2024 Influenza Whole 06/15/2015 MMR, PRIORIX, M-M-R II, (age 12m+), SC, 0.5mL 03/05/2001,05/09/1997 Meningococcal ACWY, MENACTRA (MenACWY-D), (age 9m-55y), IM, 0.5mL 02/25/2013 Poliovirus, IPOL, (age 6w+), SC/IM, 0.5mL 03/05/2001,1996,1996,06/07 TDaP, ADACEL (age 10y-64y), BOOSTRIX (age 10y+), IM, 0.5mL 11/01/2024,10/06/2013 Varicella, VARIVAX, (age 12m +), SC, 0.5mL 05/25/2013,05/09/1997 Family History Medical History Relation Name Comments High Blood Pressure Brother 2 Jose Jose Diabetes Father Louis Garcia Heart Attack Father Louis Garcia High Blood Pressure Father Louis Garcia Hypertension Father Louis Garcia Colon Cancer Maternal Grandfather Don Jaison Heart Attack Maternal Grandfather Don Jaison High Blood Pressure Mother Hypertension Mother Heart Attack Paternal Grandfather Relation Name Status Comments Brother 1 Alive Brother 2 Jose Garcia Father Louis Garcia Alive Maternal Grandfather Don Jaison Maternal Grandmother Mother Alive Paternal Grandfather Paternal Grandmother Alive Social History Tobacco Use Types Packs/Day Years Used Date Smoking Tobacco: Never Smokeless Tobacco: Never Tobacco Cessation:Counseling Given: Not Answered Alcohol Use Standard Drinks/Week Comments Not Currently 2 (1 standard drink = 0.6 oz pur e alcohol) [facility] Utilities Answer Date Recorded In the past 12 months has th e electric, gas, oil, or water company threatened to shut off services in your home? No 11/01/2024 Overall Financial Resource Strain (CARDIA) Answe r Date Recorded How hard is it for you to pa y for the very basics like food, housing, medical care, and heating? Not hard at all 03/21/2023 PHQ-2 Answer Date Recorded PHQ-9 Total Score 0 10/29/2024 Hunger Vital Sign Answer Date Recorded Within the past 12 months, y ou worried that your food would run out before you got the money to buy more. Never true 11/01/19 25 Within the past 12 months, t he food you bought just didn't last and you didn't have money to get more. Never true 11/01/2024 PRAPARE - Transportation Answer Date Re corded In the past 12 months, has l ack of transportation kept you from medical appointments or from getting medications? No 10/16 In the past 12 months, has l ack of transportation kept you from meetings, work, or from getting things needed for daily living? No 11/01/2024 Housing Stability Vital Sign Answer Rah e Recorded Unable to Pay for Housing in the Last Year Not o n file 03/21/2023 Number of Places Lived in the Last Year Not on f ile 03/21/2023 In the last 12 months, was t here a time when you did not have a steady place to sleep or slept in a nursing home (including now)? No 03/21/2023 Housing Stability Vital Sign Answer Rah e Recorded In the last 12 months, was t here a time when you were not able to pay the mortgage or rent on time? No 11/01/2024 In the past 12 months, how m any times have you moved where you were living? 0 11/01/2024 At any time in the past 12 m [facility], were you homeless or living in a nursing home (including now)? No 11/01/2024 Food Insecurity Answer Date Recorded Within the past 12 months, y ou worried that your food would run out before you got the money to buy more. 1 11/01/2024 Within the past 12 months, t he food you bought just didn't last and you didn't have money to get more. 1 11/01/2024 Comments No Sex and Gender Information Value Date Recorded Sex Assigned at Not on file Legal Sex Female 11:43 AM EST Gender Identity Not on file Sexual Orientation Not on file Last Filed Vital Signs Vital Sign Reading Time Taken Comments Blood Pressure 100/62 03/28/2025 8:20 AM EDT Pulse 89 03/28/2025 8:20 AM EDT Temperature 35.2 C (95.3 F) 03/28/2025 8:20 AM EDT Respiratory Rate 18 04/22/2023 10:45 AM EDT Oxygen Saturation 97% 03/28/2025 8:20 AM EDT Inhaled Oxygen Concentration - - Weight 100.7 kg (222 lb) 03/28/2025 8:20 AM EDT Height 162.6 cm (5' 4.02 ) 10/28/2023 8:48 AM ES T Body Mass Index 38.09 10/28/2023 8:48 AM EST Plan of Treatment Upcoming Encounters Date Type Department Care Team (Late st Contact Info) Description 04/20/2025 1:30 PM EDT Office Visit [facility] Part of [address] [place] [address] Tali Pulliam I, [address] [place] [address] [address] [place] [phone] Rectal bleeding 10/31/2025 8:00 AM EST Office Visit [facility] [address] [place] [address] [address] [place] [address] Annabella Marti, HOUSEKEEPING ROOM ATTENDANT - MANAGER ONCOLOGY [address] [facility] [place] [address] wellness + zoloft med check . Health Maintenance Due Date Last Done Comments COVID-19 Vaccine ( - season) 2024 Pap smear 01/30/2025 01/30/2022 Flu vaccine (#1) 04/15/2025 08/12/2024, 06/15/2015 Depression Screen 10/29/2025 10/29/2024, 10/29/2024 DTaP/Tdap/Td vaccine (8 - Td or Tdap) 11/01/2034 11/01/2024, 10/06/2013, 03/05/2001, Additional history exists Hib vaccine Aged Out 1996, 05/17, 1996, Additional history exists No longer eligible based on patient's age to complete this topic Hepatitis B vaccine Completed 1996, 1996, 1996 Polio vaccine Completed 03/05/2001, 10/17, 1996, Additional history exists Meningococcal (ACWY) vaccine Completed 02/25/2013 Varicella vaccine Completed 05/25/2013, 05/09/1997 Hepatitis A vaccine Completed 10/06/2013, 3 Chlamydia/GC screen Discontinued 04/02/2016, 5 A1C test (Diabetic or Prediabetic) Discontinued 12/06/2024, 10/20/2023, 04/19/2023, Additional history exists Hepatitis C screen Completed 12/06/2024 HIV screen Discontinued HPV vaccine Aged Out No longer eligi ble based on patient's age to complete this topic Meningococcal B vaccine Aged Out No l onger eligible based on patient's age to complete this topic Pneumococcal 0-49 years Vaccine Aged Out No longer eligible based on patient's age to complete this topic Procedures Procedure Name Priority Date/Time Associated Diagnosis Comments HEPATITIS C ANTIBODY Routine 12/06/2024 8:02 AM EDT Wellness examination HEMOGLOBIN A1C Routine 12/06/2024 8:02 AM EDT Wellness examination SPORTS BOOK SERVER CYTOLOGY Routine 01/30/2022 9:20 AM EDT C.TRACHOMATIS N.GONORRHOEAE DNA Routine 04/02/2016 12:41 PM EDT from Last 3 Months or Most Recently Relevant to Health Maintenance Results * Hepatitis C Antibody (12/06/2024 8:02 AM EDT) Hepatitis C Ab NONREACTIVE NONREACTIVE 12/07/19 8:02 AM EDT [facility] Comment: The hepatitis C procedure used in our laboratory is a Chemiluminescent test specific for three recombinant HCV antigens. A negative anti-HCV result indicates that the antibodies to hepatitis C virus are not present at this time. Individuals with reactive anti-HCV should be considered infected and infectious until proven otherwise. Confirmation of all equivocal or reactive results is recommended by ordering HCV RNA by PCR. Blood BLOOD SPECIMEN / Unknown 12/06/2024 8:02 AM EDT 12/06/2024 8:03 AM EDT us Annabella Marti HOUSEKEEPING ROOM ATTENDANT - MANAGER ONCOLOGY IMMUNOLOGY ORDERABLES Final Result [facility] [address] [place] [address], [facility] [phone] [place] [id number], [facility] [phone] * Hemoglobin A1C (12/06/2024 8:02 AM EDT) Pathologist [facility] Hemoglobin A1C 5.3 4.0 - 6.0 % 12/06/2024 8:02 AM EDT [facility] Estimated Avg Glucose 105 mg/dL 12/06/2024 8:02 AM EDT [facility] Comment: The ADA and AACC recommend providing the estimated average glucose result to permit better patient understanding of their HBA1c result. Blood BLOOD SPECIMEN / Unknown 12/06/2024 8:02 AM EDT 12/06/2024 8:03 AM EDT us Annabella Champion Marti HOUSEKEEPING ROOM ATTENDANT - MANAGER ONCOLOGY CHEMISTRY ORDERABLES Final Result Performing Organization Address City/[facility]/ZIP Co de Phone Number [facility] [address] [place] [address], [facility] [phone] [phone] * SPORTS BOOK SERVER Cytology (01/30/2022 9:20 AM EDT) Cytology Report INTERPRETATION Cervical material, (ThinPrep vial, Imaging-assisted review): Specimen Adequacy: Satisfactory for evaluation. -Endocervical/tra nsformation zone component is absent. Descriptive Diagnosis: Negative for intraepithelial lesion or malignancy. Videotape Editor: POLINA VELIZ(ASCP) Electronically Signed Out /02/05/2022 Source: A: Cervical material, (ThinPrep vial, Imaging-assisted review) Clinical History Z01.419 Routine chief mechanical engineer exam without abnormal findings GYNECOLOGIC CYTOLOGY REPORT Patient Name: LAURA MARIE [facility] Rec: [id number] Path Number: [id number] [facility] ANATOMIC PATHOLOGY [address] [place] [phone] [facility] CERVICAL MATERIAL 01/30/2022 9:20 AM EDT 01/31/2022 9:20 AM EDT Sarah Horn PA-C PATHOLOGY/CYTOLOGY ORDER VIOLET Final Result [facility] [address] [place] [address], [facility] [phone] [place] [address], [facility] [phone] * Chlamydia Trachomatis & Neisseria gonorrhoeae (GC) by amplified detection (04/02/2016 12:41 PM EDT) C. trachomatis DNA NEGATIVE NEG 04/03/2016 11:32 AM EDT [facility] Comment:CHLAMYDIA TRACHOMATI S DNA not detected by nucleic acid amplification. N. gonorrhoeae DNA NEGATIVE NEG 04/03/2016 11:32 AM EDT [facility] Comment: NEISSERIA GONORRHOEAE DNA not detected by nucleic acid amplification. Performed at [address] [address] ([phone] 04/02/2016 12:4 1 PM EDT 04/02/2016 12:41 PM EDT Brenda Morris HOUSEKEEPING ROOM ATTENDANT - CNM MICROBIOLOGY - GENERA L ORDERABLES Final Result [facility] [address] [place], [place] [address] [phone] [facility] from Last 3 Months or Most Recently Relevant to Health Maintenance Insurance [facility] [place] [id number] [facility] Advance Directives * Full Code (Latest Code Status on File) Date Activated Date Inactivated Comments 09/13/2015 8:45 PM 09/14/2015 5:05 PM Care Teams Assistant Oceanographer Relationship Specialty Start Date End Date Annabella Marti, HOUSEKEEPING ROOM ATTENDANT - MANAGER ONCOLOGY [address] [place] [address] PCP - General Family Nurse Practitioner 02/19/23
--- OUTSIDE RECORDS SUMMARY | 2025-04-12 15:13 | XMS_ITS | Encounter Summary ---
Author Organization [facility] Address [address] [place] [address] Care Team Providers Care Hide Mill Man Name Role Phone Unavailable Primary Care Provider Unavailabl e Encounter Details Date Type Department Care Team (Late Contact Info) Description 05/31/2024 Abstract [facility] [address] [place] [address] [place] [phone] Sree Francisco DO [facility] [address] [place], [place] [address] Social History Tobacco Use Types Packs/Day Years [...] 3:30 PM EDT Procedure Visit [facility] [place] [phone] Sree Francisco DO [facility] [place] [address] 04/17/2026 11:00 AM EDT Procedure Visit [facility] [address] [facility] [phone] Sree Francisco DO [address] [facility] [place] [address] documented as of this encounter Goals Goal Patient Goal Type Associated Problems Recent Progress Patient-Stated? Author Reminders Care Plan OB Reminders No Open Scheduling, Background documented as of this encounter Visit Diagnoses Not on filedocumented in this encounter Additional Health Concerns Active Problems Noted Date Diagnosed Date OB Reminders 02/28/2024 documented as of this encounter
--- OUTSIDE RECORDS SUMMARY | 2025-04-12 15:13 | XMS_ITS | Encounter Summary ---
Author Organization [facility] Address [address] [place] [address] Care Team Providers Care Oxygen Equipment Technician Name Role Phone Unavailable Primary Care Provider Unavailabl e Encounter Details Date Type Department Care Team (Late Contact Info) Description 08/03/2024 Abstract [facility] [address] [place] [address] [place] [phone] Sree Francisco DO [facility] [address] [place], [place] [address] Social History Tobacco Use Types Packs/Day Years [...] 3:30 PM EDT Procedure Visit [facility] [place] [phone] Sree Francisco DO [facility] [address] [place], [place] [address] 04/17/2026 11:00 AM EDT Procedure Visit [facility] [address] [place] [phone] Sree Francisco DO [address] [facility] [place] [address] documented as of this encounter Goals Goal Patient Goal Type Associated Problems Recent Progress Patient-Stated? Author Reminders Care Plan OB Reminders No Open Scheduling, Background documented as of this encounter Visit Diagnoses Not on filedocumented in this encounter Additional Health Concerns Active Problems Noted Date Diagnosed Date OB Reminders 02/28/2024 documented as of this encounter
--- OUTSIDE RECORDS SUMMARY | 2025-04-12 15:13 | XMS_ITS | Encounter Summary ---
Author Organization [facility] Address [address] [place] [address] Care Team Providers Care Studio Operation Engineer Name Role Phone Unavailable Primary Care Provider Unavailabl e Encounter Details Date Type Department Care Team (Late Contact Info) Description 07/20/2024 Abstract [facility] [address] [place] [address] [place] [phone] Sree Francisco DO [facility] [address] [place], [place] [address] Social History Tobacco Use Types Packs/Day Years [...] 3:30 PM EDT Procedure Visit [facility] [place] [phone] Sree Francisco DO [facility] [address] [place], [facility] [address] 04/17/2026 11:00 AM EDT Procedure Visit [facility] [address] [facility] [address] Sree Francisco DO [address] [facility] [place] [address] documented as of this encounter Goals Goal Patient Goal Type Associated Problems Recent Progress Patient-Stated? Author Reminders Care Plan OB Reminders No Open Scheduling, Background documented as of this encounter Visit Diagnoses Not on filedocumented in this encounter Additional Health Concerns Active Problems Noted Date Diagnosed Date OB Reminders 02/28/2024 documented as of this encounter
--- OUTSIDE RECORDS SUMMARY | 2025-04-12 15:13 | XMS_ITS | Encounter Summary ---
Author Organization [facility] Address [address] [place] [address] Care Team Providers Care Manager Technology Name Role Phone Unavailable Primary Care Provider Unavailabl e Encounter Details Date Type Department Care Team (Late Contact Info) Description 06/08/2024 Abstract [facility] [address] [place] [address] [place] [phone] Sree Francisco DO [facility] [address] [place], [place] [address] Social History Tobacco Use Types Packs/Day Years [...] 3:30 PM EDT Procedure Visit [facility] [place] [phone] Sree Francisco DO [facility] [address] [place], [facility] 04/17/2026 11:00 AM EDT Procedure Visit [facility] [address] [facility] [phone] Sree Francisco DO [address] [facility] [place] [address] documented as of this encounter Goals Goal Patient Goal Type Associated Problems Recent Progress Patient-Stated? Author Reminders Care Plan OB Reminders No Open Scheduling, Background documented as of this encounter Visit Diagnoses Not on filedocumented in this encounter Additional Health Concerns Active Problems Noted Date Diagnosed Date OB Reminders 02/28/2024 documented as of this encounter
--- OUTSIDE RECORDS SUMMARY | 2025-04-12 15:13 | XMS_ITS | Clinical Summary ---
Author Organization [facility] Address [id number] [address] [place] [address] Care Team Providers Care Clin Tech Name Role Phone Pcp, Not In System Primary Care Provider Unavail able Allergies Active Allergy Reactions Criticality Noted Date Comments Sodium Chloride 08/16/2024 Cefprozil Hives 1996 Medications 25/iron fum/folic/dha (-1 ORAL) Take 1 tablet by mouth in the morning. Active sertraline (ZOLOFT) 25 mg tablet Take 1 tablet (25 mg total) by mouth in the morning. Active enoxaparin (LOVENOX) 40 mg/0.4 mL syringeIndicatio ns:Pulmonary embolism affecting in first trimester Inject 0.4 mL (40 mg total) under the skin in the morning. 12 mL 6 04/21/2024 Active Active Problems Problem Noted Date Diagnosed Date Wound dehiscence, , condition 08/17/2024 Wound infection following section, post 08/17/2024 Cellulitis, unspecified cellulitis site 08/13/20 Separation of chorion and amnion membranes, ante 08/03/2024 Amniotic band, third trimester, fetus 1 08/03/20 24 Circumvallate placenta durin g in second trimester, antepartum 05/05/2024 Poor growth affecting management of mother in third trimester 05/05/2024 Subchorionic hematoma in second trimester 2023 Immunizations Immunization Administration Dates Next Due DTaP 03/05/2001, 7,1996,1996, 6 Hepatitis A 10/06/2013,02/25/2013 Hib (PRP-OMP) 1996,1996,1996 ,1996 IPV 03/05/2001,1996,1996 ,1996 Influenza Whole 06/15/2015 Influenza, Unspecified 08/12/2024 Meningococcal MCV4P 02/25/2013 Tdap 10/06/2013 Varicella 05/25/2013,05/09/1997 Family History Medical History Relation Name Comments Deep vein thrombosis Father Diabetes Father Heart disease Father Hypertension Father Cancer Maternal Grandfather Cancer Maternal Grandmother Breast cancer Mother Hypertension Mother Heart disease Paternal Grandfather Relation Name Status Comments Father Maternal Grandfather Maternal Grandmother Mother Paternal Grandfather Social History Tobacco Use Types Packs/Day Years Used Date Smoking Tobacco: Never Smokeless Tobacco: Never Tobacco Cessation:Counseling Given: Not Answered Alcohol Use Standard Drinks/Week Comments Not Currently 0 (1 standard drink = 0.6 oz pur e alcohol) [email or web address] Answer Date Recorded In the past 12 months has th [employer], oil, or water [employer] threatened to shut off services in your [...] things needed for daily living? No 08/13/2024 [place] Depression Scale Answer Date Recorded [place] Depression Scale Total 2 08/23/2024 The thought of harming myself has occurred to me . Never 08/23/2024 Housing Instability Answer Date Recorde d Are [...] got money to buy more. Never True 09/17/2024 Within the past 12 months th e food we bought just didn't last and we didn't have money to get more. Never True 09/17/2024 Comments No Sex and Gender Information Value Date Recorded Sex Assigned at Not on file Legal Sex Female 1:15 PM EDT Gender Identity Not on file Sexual Orientation Not on file Last Filed Vital Signs Vital Sign Reading Time Taken Comments Blood Pressure 98/64 09/17/2024 8:51 AM EST Pulse 82 09/17/2024 8:51 AM EST Temperature 36.8 C (98.2 F) 09/17/2024 8:51 AM EST Respiratory Rate 16 09/10/2024 3:00 PM EST Oxygen Saturation 99% 08/13/2024 2:20 PM EST Inhaled Oxygen Concentration - - Weight 91.7 kg (202 lb 1.6 oz) 08/23/2024 8:05 A M EST Height 162.6 cm (5' 4 ) 08/23/2024 8:05 AM EST Body Mass Index 34.69 08/23/2024 8:05 AM EST Plan of Treatment Health Maintenance Due Date Last Done Comments Adult BMI Follow Up Plan 2014 DTaP,Tdap and Td Vaccines (7 - Td or Tdap) 10/06/2023 10/06/2013, 03/05/2001, 07/14/1997, Additional history exists Pap Smear 01/30/2025 01/30/2022 Influenza Vaccine 05/16/2025 08/12/2024, 06/15/2015 Adult BMI Screening 08/23/2025 08/23/2024 Depression Screening 08/23/2025 08/23/2024, 08/17/20 Tobacco Screening 09/17/2025 09/17/2024 Medical Devices Not on file Insurance [employer] Advance Directives * Full Code (Latest Code Status on File) Date Activated Date Inactivated Comments 08/13/2024 1:22 PM 08/15/2024 6:30 PM * Full Code Date Activated Date Inactivated Comments 08/03/2024 4:42 PM 08/07/2024 4:16 PM Care Teams Clin Tech Relationship Specialty Start Date End Date Pcp, Not In System JESSICA Wild [id number] PCP - General Family Medicine 08/13/24
--- OUTSIDE RECORDS SUMMARY | 2025-04-12 15:13 | XMS_ITS | Encounter Summary ---
Author Organization [facility] Address [address] [place] [address] Care Team Providers Care Procurement Director Name Role Phone Unavailable Primary Care Provider Unavailabl e Encounter Details Date Type Department Care Team (Late st Contact Info) Description 07/26/2024 Clinisync Result Encounter [facility] External Department Unsolicited Екатерина rFancisco, DO [address] Kimmy [place], [place] [address] Social History Tobacco Use Types Packs/Day Years [...] PM EDT Procedure Visit [facility] N[facility]ha [facility] [address] [place], [place] [address] [phone] Екатерина Francisco DO [address], [facility] 04/17/2026 11:00 AM EDT Procedure Visit NOMMarimar CR[facility] [place] [address] Екатерина Francisco, DO [address] [facility] [place] [address] documented as of this encounter Goals Goal Patient Goal Type Associated Problems Recent Progress Patient-Stated? Author Reminders Care Plan OB Reminders No Open Scheduling, Background documented as of this encounter Procedures Procedure Name Priority Date/Time Associated Diagnosis Comments US OB BPP W NON-STRESS 07/26/2024 4:01 PM EST documented in this encounter Results * US OB BPP W NON-STRESS (07/26/2024 4:01 PM EST) Anatomical Region Laterality Modality Other 07/26/2024 4:01 PM EST Narrative 07/26/2024 4:04 [place] [address] Ultrasound Report Signed Patient: LAURA OROSCO MR#: [id number] : 1995 Acct:[id number] Age/Sex: 29 / F ADM Date: 07/26/24 Loc: US Attending Dr: Екатерина Francisco D.O. Ordering Physician: Екатерина Francisco D.O. Date of Service: 07/26/24 Procedure(s): US OB BPP w non-stress Accession Number(s): [id number] cc: Екатерина Francisco D.O.; Annabella Marti NP [address] [address] Patient Name: LAURA OROSCO MRN: [id number] date: 1995 Sex: F Assigned Patient Location: [facility] Current Patient Location: Accession/Order Number: [id number] Exam Date: 07/26/2024 15:04 Report Date: 07/26/2024 16:01 At the request of: ЕКАТЕРИНА FRANCISCO Procedure: US OB BPP w non-stress EXAMINATION: US OB BPP w non-stress HISTORY: POOR GROWTH O36.5910 COMPARISON: No relevant comparison available. TECHNIQUE: Ultrasound biophysical profile was performed in the radiology department. non-reactive stress testing was performed by nursing staff in the birthing center. FINDINGS: BREATHING MOVEMENTS: 2 GROSS BODY MOVEMENTS: 2 TONE: 2 QUALITATIVE AMNIOTIC FLUID VOLUME: 2 PRESENTATION: CEPHALIC HEART RATE: 134.33 bpm AMNIOTIC FLUID VOLUME: 20.6 cm GESTATIONAL AGE: 32 weeks 2 days US/US OB BPP w non-stress IMPRESSION: Total biophysical profile score: 8 Electronically authenticated by: KRISTINE QUINONES Date: 07/26/2024 16:01 Dictated By: Kristine Quinones M.D. Signed By: 07/26/241603 DD/ 00 TD/TT: Call Center Support Consultant: Procedure Note Radiology, Radiologist, - 07/26/2024 [place] [address] Ultrasound Report Signed Patient: LAURA OROSCO MMR#: [id number] : 1995Acct:[id number] Age/Sex: 29 / FADM Date: 07/26/24 Loc: US Attending Dr: Екатерина Francisco D.O. Ordering Physician: Екатерина Francisco D.O. Date of Service: 07/26/24 Procedure(s): US OB BPP w non-stress Accession Number(s): [id number] cc: Екатерина Francisco D.O.; Annabella Marti NP The [place] [id number] Patient Name: LAURA OROSCO MRN: [id number] date: 1995 Sex: F Assigned Patient Location: [facility] Current Patient Location: Accession/Order Number: [id number] Exam Date: 07/26/2024 15:04 Report Date: 07/26/2024 16:01 At the request of: ЕКАТЕРИНА FRANCISCO Procedure: US OB BPP w non-stress EXAMINATION: US OB BPP w non-stress HISTORY: POOR GROWTH O36.5910 COMPARISON: No relevant comparison available. TECHNIQUE: Ultrasound biophysical profile was performed in the radiology department. non-reactive stress testing was performed by nursingstaff in the birthing center. FINDINGS: BREATHING MOVEMENTS: 2 GROSS BODY MOVEMENTS: 2 TONE: 2 QUALITATIVE AMNIOTIC FLUID VOLUME: 2 PRESENTATION: CEPHALIC HEART RATE: 134.33 bpm AMNIOTIC FLUID VOLUME: 20.6 cm GESTATIONAL AGE: 32 weeks 2 days US/US OB BPP w non-stress IMPRESSION: Total biophysical profile score: 8 Electronically authenticated by: KRISTINE QUINONES Date: 07/26/2024 16:01 Dictated By: Kristine Quinones M.D. Signed By:07/26/24 1604 DD/ 1601 TD/TT: Call Center Support Consultant: us Екатерина Francisco DO [facility] Final Result documented in this encounter Visit Diagnoses Not on filedocumented in this encounter Additional Health Concerns Active Problems Noted Date Diagnosed Date OB Reminders 02/28/2024 documented as of this encounter
--- OUTSIDE RECORDS SUMMARY | 2025-04-12 15:13 | XMS_ITS | Encounter Summary ---
Author Organization [facility] Address [address], [address] [place] [address] Care Team Providers Care Director Of Media Name Role Phone Annabella Marti CERTIFIED NURSE PRACTITIONER - PAY STATION DEPARTMENT MANAGER Primary Care Provide r Reason for Visit * Reason Comments Other Encounter Details Date Type Department Care Team (Late Contact Info) Description 04/19/2014 Refill [facility] [address] [place] [address] Brenda Morris APRN - [address] [place] [address] Other Social History Tobacco Use Types Packs/Day Years [...] Department Care Team (Late Contact Info) Description 04/20/2025 1:30 PM EDT Office Visit [facility] SURGERY Part of [address] [place] [address] Tali Pulliam DO [address] [facility] [address] [place] [address] Rectal bleeding 10/31/2025 8:00 AM EST Office Visit [facility] Primary Care [address] [place] [address] [address] [place] [address] Annabella Marti, CERTIFIED NURSE PRACTITIONER - PAY STATION DEPARTMENT MANAGER [address] [place] [address] [address] [place] [address] wellness + zoloft med check . documented as of this encounter Visit Diagnoses Not on filedocumented in this encounter Care Teams Director Of Media Relationship Specialty Start Date End Date Annabella Marti, CERTIFIED NURSE PRACTITIONER - PAY STATION DEPARTMENT MANAGER [address] [place] [address] [address] [place] [address] PCP - General Family Nurse Practitioner 02/19/23 documented as of this encounter
--- OUTSIDE RECORDS SUMMARY | 2025-04-12 15:13 | XMS_ITS | Encounter Summary ---
Author Organization [facility] Address [address] [place] [place] [address] Care Team Providers Care Real Estate Branch Manager Name Role Phone Unavailable Primary Care Provider Unavailabl e Encounter Details Date Type Department Care Team (Late Contact Info) Description 06/01/2024 Abstract EDEL [facility] [address] [place] [address] [place] [phone] Sree Francisco DO [facility] [address], [place] [address] Social History Tobacco Use Types Packs/Day Years [...] 3:30 PM EDT Procedure Visit EDEL CR[facility]TREE [facility] [place] [phone] Sree Francisco DO [facility] [address] Jeffries, [id number] 04/17/2026 11:00 AM EDT Procedure Visit [facility] Nesha OBGYN [address] [facility] [place] [address] Sree Francisco DO [address] [facility] [place] [address] documented as of this encounter Goals Goal Patient Goal Type Associated Problems Recent Progress Patient-Stated? Author Reminders Care Plan OB Reminders No Open Scheduling, Background documented as of this encounter Visit Diagnoses Not on filedocumented in this encounter Additional Health Concerns Active Problems Noted Date Diagnosed Date OB Reminders 02/28/2024 documented as of this encounter
--- OUTSIDE RECORDS SUMMARY | 2025-04-12 15:13 | XMS_ITS | Encounter Summary ---
Author Organization [facility] Address [address] [place] [address] Care Team Providers Care Silk Screen Painter Name Role Phone Unavailable Primary Care Provider Unavailabl e Encounter Details Date Type Department Care Team (Late Contact Info) Description 08/11/2024 Abstract EDEL [facility] [address] [place] [address] [place] [phone] Sree Francisco DO [facility] T[address] Jeffries, [place] [address] Social History Tobacco Use Types Packs/Day Years [...] 3:30 PM EDT Procedure Visit EDEL CR[facility] [place] [phone] Sree Francisco DO [facility] [address] Jeffries, [place] [address] 04/17/2026 11:00 AM EDT Procedure Visit [facility] N[facility] OBGYN [address] [facility] [place] [address] Sree Francisco DO [address] [facility] [place] [address] documented as of this encounter Goals Goal Patient Goal Type Associated Problems Recent Progress Patient-Stated? Author Reminders Care Plan OB Reminders No Open Scheduling, Background documented as of this encounter Visit Diagnoses Not on filedocumented in this encounter Additional Health Concerns Active Problems Noted Date Diagnosed Date OB Reminders 02/28/2024 documented as of this encounter
--- OUTSIDE RECORDS SUMMARY | 2025-04-12 15:13 | XMS_ITS | Encounter Summary ---
Author Organization [facility] Address [address] [place] [address] Care Team Providers Care Greenskeeper Laborer Name Role Phone Unavailable Primary Care Provider Unavailabl e Encounter Details Date Type Department Care Team (Late Contact Info) Description 06/25/2024 Abstract EDEL [facility] [address] [place] [address] [place] [phone] [facility] T[address] [place], [place] [address] Social History Tobacco Use Types Packs/Day Years [...] 3:30 PM EDT Procedure Visit EDEL CRABT[facility] [place] [phone] [facility] Taco Jeff[place], [place] [address] 04/17/2026 11:00 AM EDT Procedure Visit [facility] N[facility]ha OBGYN [address] [facility] [place] [phone] Sree Francisco DO [address] [facility] [place] [address] documented as of this encounter Goals Goal Patient Goal Type Associated Problems Recent Progress Patient-Stated? Author Reminders Care Plan OB Reminders No Open Scheduling, Background documented as of this encounter Visit Diagnoses Not on filedocumented in this encounter Additional Health Concerns Active Problems Noted Date Diagnosed Date OB Reminders 02/28/2024 documented as of this encounter
--- OUTSIDE RECORDS SUMMARY | 2025-04-12 15:13 | XMS_ITS | Encounter Summary ---
Author Organization [facility] Address [address] [place] [address] Care Team Providers Care Platform Material Handling Supervisor Name Role Phone Unavailable Primary Care Provider Unavailabl e Encounter Details Date Type Department Care Team (Late Contact Info) Description 08/03/2024 Abstract EDEL [facility] [address] [place] [address] [place] [phone] Sree Francisco DO [facility] T[address] Jeffries, [place] [address] Social History Tobacco Use Types Packs/Day Years [...] CRABTREE [facility] [place] [phone] Sree Francisco DO [facility] [address], [place] [address] 04/17/2026 11:00 AM EDT Procedure Visit [facility] Nesha OBGYN [address] [facility] [place] [phone] Sree Francisco DO [address] [facility] [place] [address] documented as of this encounter Goals Goal Patient Goal Type Associated Problems Recent Progress Patient-Stated? Author Reminders Care Plan OB Reminders No Open Scheduling, Background documented as of this encounter Visit Diagnoses Not on filedocumented in this encounter Additional Health Concerns Active Problems Noted Date Diagnosed Date OB Reminders 02/28/2024 documented as of this encounter
--- OUTSIDE RECORDS SUMMARY | 2025-04-12 15:13 | XMS_ITS | Encounter Summary ---
Author Organization [facility] Address [address] [place] [address] Care Team Providers Care Adult Family Home Program Manager Name Role Phone Unavailable Primary Care Provider Unavailabl e Encounter Details Date Type Department Care Team (Latest Contact Info) Description 04/11/2025 Travel Social History Tobacco Use Types Packs/Day Years [...] 3:30 PM EDT Procedure Visit EDEL CR[facility] [address] [place] [address] [place] [phone] Sree Francisco, DO [address] [place], [place] [address] 04/17/2026 11:00 AM EDT Procedure Visit EDEL CR[facility] [address] [place], [place] [address]Jan[place] [address] Sree Francisco, DO [address] [place], [place] [address] documented as of this encounter Goals Goal Patient Goal Type Associated Problems Recent Progress Patient-Stated? Author Reminders Care Plan OB Reminders No Open Scheduling, Background documented as of this encounter Visit Diagnoses Not on filedocumented in this encounter Additional Health Concerns Active Problems Noted Date Diagnosed Date OB Reminders 02/28/2024 documented as of this encounter
--- OUTSIDE RECORDS SUMMARY | 2025-04-12 15:13 | XMS_ITS | Encounter Summary ---
Author Organization [facility] Address [address] [place] [address] Care Team Providers Care Meteorology Teacher Name Role Phone Unavailable Primary Care Provider Unavailabl e Encounter Details Date Type Department Care Team (Late st Contact Info) Description 08/03/2024 Clinisync Result Encounter NOMS External Department Unsolicited Екатерина Francisco, DO [address] [place] [place], [place] [address] Social History Tobacco Use Types Packs/Day Years [...] 3:30 PM EDT Procedure Visit [facility] Nesha CR[facility] [address] [place], [place] [address] [phone] Екатерина Francisco DO [address], [facility]11 04/17/2026 11:00 AM EDT Procedure Visit NOMMarimar CRABT[facility] [place] [address] Екатерина Francisco, DO [address] [facility] [place] [address] documented as of this encounter Goals Goal Patient Goal Type Associated Problems Recent Progress Patient-Stated? Author Reminders Care Plan OB Reminders No Open Scheduling, Background documented as of this encounter Procedures Procedure Name Priority Date/Time Associated Diagnosis Comments US OB BPP W NON-STRESS 08/03/2024 4:54 AM EST documented in this encounter Results * US OB BPP W NON-STRESS (08/03/2024 4:54 AM EST) Anatomical Region Laterality Modality Other 08/03/2024 4:54 AM EST Narrative 08/03/2024 4:57 [place] [address] Ultrasound Report Signed Patient: LAURA OROSCO MR#: [id number] : 1995 Acct:[id number] Age/Sex: 29 / F ADM Date: 08/02/24 Loc: US Attending Dr: Екатерина Francisco D.O. Ordering Physician: Екатерина Francisco D.O. Date of Service: 08/02/24 Procedure(s): US OB BPP w non-stress Accession Number(s): [id number] cc: Екатерина Francisco D.O.; Annabella Marti NP [address] [address] Patient Name: LAURA OROSCO MRN: [id number] date: 1995 Sex: F Assigned Patient Location: [facility] Current Patient Location: Accession/Order Number: [id number] Exam Date: 08/02/2024 15:04 Report Date: 08/03/2024 04:54 At the request of: ЕКАТЕРИНА FRANCISCO Procedure: US OB BPP w non-stress EXAMINATION: US OB BPP w non-stress HISTORY:POOR GROWTH O36.5910 COMPARISON: No relevant comparison available. TECHNIQUE: Ultrasound biophysical profile was performed in the radiology department. BREATHING MOVEMENTS: 2 GROSS BODY MOVEMENTS: 2 TONE: 2 QUALITATIVE AMNIOTIC FLUID VOLUME: 2 PRESENTATION: CEPHALIC HEART RATE: 146.74 bpm AMNIOTIC FLUID VOLUME: 18.78 cm GESTATIONAL AGE: 33 weeks 2 days US/US OB BPP w non-stress IMPRESSION: 1. Total biophysical profile score: 8 2. Possible nuchal cord. Follow-up recommended. Electronically authenticated by: ABHIJEET TAM Date: 08/03/2024 04:54 Dictated By: Abhijeet Tam M.D. Signed By: 08/03/24456 DD/ 3 TD/TT: Sample Clerk: Procedure Note Radiology, Radiologist, - 08/03/2024 [place] [address] Ultrasound Report Signed Patient: LAURA OROSCO MMR#: [id number] : 1995Acct:[id number] Age/Sex: 29 / FADM Date: 08/02/24 Loc: US Attending Dr: Екатерина Francisco D.O. Ordering Physician: Екатерина Francisco D.O. Date of Service: 08/02/24 Procedure(s): US OB BPP w non-stress Accession Number(s): [id number] cc: Екатерина Francisco D.O.; Annabella Marti NP The [place] [address] Patient Name: LAURA OROSCO MRN: [id number] date: 1995 Sex: F Assigned Patient Location: [facility] Current Patient Location: Accession/Order Number: [id number] Exam Date: 08/02/2024 15:04 Report Date: 08/03/2024 04:54 At the request of: ЕКАТЕРИНА FRANCISCO Procedure: US OB BPP w non-stress EXAMINATION: US OB BPP w non-stress HISTORY:POOR GROWTH O36.5910 COMPARISON: No relevant comparison available. TECHNIQUE: Ultrasound biophysical profile was performed in the radiology department. BREATHING MOVEMENTS: 2 GROSS BODY MOVEMENTS: 2 TONE: 2 QUALITATIVE AMNIOTIC FLUID VOLUME: 2 PRESENTATION: CEPHALIC HEART RATE: 146.74 bpm AMNIOTIC FLUID VOLUME: 18.78 cm GESTATIONAL AGE: 33 weeks 2 days US/US OB BPP w non-stress IMPRESSION: 1. Total biophysical profile score: 8 2. Possible nuchal cord. Follow-up recommended. Electronically authenticated by: ABHIJEET TAM Date: 08/03/2024 04:54 Dictated By: Abhijeet Tam M.D. Signed By:08/03/24 0457 DD/ TD/TT: Sample Clerk: us Екатерина Nolan DO [facility] Final Result documented in this encounter Visit Diagnoses Not on filedocumented in this encounter Additional Health Concerns Active Problems Noted Date Diagnosed Date OB Reminders 02/28/2024 documented as of this encounter
--- OUTSIDE RECORDS SUMMARY | 2025-04-12 15:13 | XMS_ITS | Encounter Summary ---
Author Organization [facility] Address [address] [place] [address] Care Team Providers Care Fertilizer Applicator Name Role Phone Unavailable Primary Care Provider Unavailabl e Encounter Details Date Type Department Care Team (Late Contact Info) Description 07/07/2024 Abstract EDEL [facility] [address] [place] [address] [place] [phone] Sree Francisco DO [facility] [address] [place], [place] [address] Social History Tobacco Use Types Packs/Day Years [...] CRABTREE [facility] [place] [phone] Sree Francisco DO [facility] [place] [address] 04/17/2026 11:00 AM EDT Procedure Visit [facility] OBG[facility] [address] [facility] [place] [address] Sree Francisco DO [address] [facility] [place] [address] documented as of this encounter Goals Goal Patient Goal Type Associated Problems Recent Progress Patient-Stated? Author Reminders Care Plan OB Reminders No Open Scheduling, Background documented as of this encounter Visit Diagnoses Not on filedocumented in this encounter Additional Health Concerns Active Problems Noted Date Diagnosed Date OB Reminders 02/28/2024 documented as of this encounter
--- OUTSIDE RECORDS SUMMARY | 2025-04-12 15:13 | XMS_ITS | Encounter Summary ---
Author Organization [facility] Address [address] [place] [place] [address] Care Team Providers Care Castings Drafter Name Role Phone Unavailable Primary Care Provider Unavailabl e Encounter Details Date Type Department Care Team (Late st Contact Info) Description 11/02/2024 Orders Only [facility] [address] [facility] [place] [phone] Rola Lovell LPN [address] [place] [place], [place] [address] Social History Tobacco Use Types Packs/Day Years [...] PM EDT Procedure Visit [facility] Nesha [facility] [address] [place] [address] Sree Francisco DO [address] [place] [address] 04/17/2026 11:00 AM EDT Procedure Visit [facility] N[facility] OBGYN [address] [place] [address] Sree Francisco DO [address] [facility] [place] [address] documented as of this encounter Goals Goal Patient Goal Type Associated Problems Recent Progress Patient-Stated? Author Reminders Care Plan OB Reminders No Open Scheduling, Background documented as of this encounter Procedures Procedure Name Priority Date/Time Associated Diagnosis Comments PAP SMEAR Routine 03/31/2024 12:00 AM EDT documented in this encounter Results * Pap Smear (03/31/2024 12:00 AM EDT) Swab Cervical swab / Unknown Nolan Nurse [facility] Ob LAB CYTOLOGY ORDERABLES Final Result EXTERNAL LAB documented in this encounter Visit Diagnoses Not on filedocumented in this encounter Additional Health Concerns Active Problems Noted Date Diagnosed Date OB Reminders 02/28/2024 documented as of this encounter
[2025-04-14 14:10] LABS: Age Gdln ACOG Testing Note (.); IGP, rfx Aptima HPV ASCU Note (.)
== END 2025-04-12 15:09 | disposition home or self-care (01) ==
LOC: LAB 15:08
PROVIDERS: PCP Nurse Practitioner Women's Health; Visit Provider Obstetrics & Gynecology
DX: Z01.419 Encounter for gynecological examination (general) (routine) without abnormal findings (principal)
CPT/HCPCS: 88175

== ENCOUNTER 2025-04-27 07:55 | Outpatient (OUT) | payer BC, SELFPAY ==
--- NOTE | 2025-04-27 19:57 | US_ITS ---
[address] [address] Patient Name: LAURA OROSCO MRN: [id number] date: 1995 Sex: F Assigned Patient Location: [facility] Current Patient Location: Accession/Order Number: [id number] Exam Date: 04/28/2025 09:10 Report Date: 04/28/2025 09:13 At the request of: ЕКАТЕРИНА BARBOZA DO Procedure: US pelvis transvaginal Pelvic ultrasound. Reason for exam: Encounter Friday removal Comparison: none Technique: Transvaginal imaging of the uterus and ovaries was also obtained. Additional spectral Doppler analysis of the ovaries was also obtained. Findings: Uterus measures 10.3 x 4.6 x 5.4 cm. No fibroid is seen. IUD is seen within the endometrial canal. Endometrium measures 9.7 mm. No focal endometrial abnormality is seen. Right ovary not visualized. Left ovary 4.3 x 2.1 x 3.2 cm without mass or cyst. No free fluid. Normal arterial and venous Doppler waveforms. US/US pelvis transvaginal Impression: IUD seen within the endometrial canal in satisfactory position. No acute process is seen. Right ovary not visualized. Impression dictated by: Chato Mohan Jr., D.O. 04/28/2025 9:13 AM Dictation Location: [place] [address] Electronically authenticated by: [id number] Y Date: 04/28/2025 09:13
== END 2025-04-27 07:56 | disposition home or self-care (01) ==
PROVIDERS: PCP Nurse Practitioner Women's Health; Visit Provider Obstetrics & Gynecology
DX: T83.39XA Other mechanical complication of intrauterine contraceptive device, initial encounter (principal); Z30.432 Encounter for removal of intrauterine contraceptive device
CPT/HCPCS: 76830

== ENCOUNTER 2025-04-29 08:22 | Day surgery (SDC) | payer BC, SELFPAY ==
[2025-04-27 08:46] VITALS: BP 119/78; PULSE 84; TEMP 36.4; O2SAT 98; BMI 37.0
--- OUTSIDE RECORDS SUMMARY | 2025-04-29 08:28 | XMS_ITS | CCD ---
Author Organization [facility] Care Team Providers Care Engine Monitor Name Role Phone Gunnar Palacios Primary Care Provider LEONARD, THEODORE Referring Unavailable LEONARD, THEODORE Referring Unavailable MOUSSA, HIND NADIM Referring Unavailable Unavailable Primary Care Provider Unavailabl e NOLAN, SREE R Referring Unavailable NOLAN, SREE R Referring Unavailable NOLAN, SREE R Referring Unavailable NOLAN, SREE R Referring Unavailable Pcp, Not In System Primary Care Provider Unavail able NOLAN, SREE R Referring Unavailable LEONARD, THEODORE Attending Unavailable SUNITA RAPP Referring Unavail able NOLAN, SREE R Referring Unavailable CATHYRYAN Attending Unavailable NOLAN, SREE R Referring Unavailable CATHY, RYAN Attending Unavailable NOLAN, SREE R Referring Unavailable NOLAN, SREE R Referring Unavailable LEONARD, THEODORE Attending Unavailable NOLAN, SREE R Referring Unavailable LEONARD, THEODORE Attending Unavailable NOLAN, SREE R Referring Unavailable JOCELIN GRISSOM Admitting Unavailable JOCELIN GRISSOM Attending Unavailable MEDICINE, MATERNAL Consulting Unavail able [facility] Consulti ng Unavailable MARIA DE JESUS MAHAJAN Referring Unavailable RYAN DOUGHERTY Attending Unavailable JOSSELYN KIMBALL Attending Unavailab le PCP, NOT IN SYSTEM Primary Care Unavailable JOAQUIN TEJADA Admitting Unavailable ONLY), IP WOUND CARE SERVICES (INPATIENT Consult ing Unavailable JOSSELYN ARGUELLO Referring Unavail able PCP, NOT IN SYSTEM Primary Care Unavailable RENAE STAFFORD Attending Unavailable PHYSICIAN, UNKNOWN Referring Unavailable PCP, NOT IN SYSTEM Primary Care Unavailable PHYSICIAN, UNKNOWN Referring Unavailable PCP, NOT IN SYSTEM Primary Care Unavailable PHYSICIAN, UNKNOWN Referring Unavailable PCP, NOT IN SYSTEM Primary Care Unavailable PHYSICIAN, UNKNOWN Referring Unavailable PCP, NOT IN SYSTEM Primary Care Unavailable JOAQUIN TEJADA Referring Unavailable PCP, NOT IN SYSTEM Primary Care Unavailable RENAE STAFFORD Attending Unavailable PHYSICIAN, UNKNOWN Referring Unavailable PCP, NOT IN SYSTEM Primary Care Unavailable PHYSICIAN, UNKNOWN Referring Unavailable PCP, NOT IN SYSTEM Primary Care Unavailable PHYSICIAN, UNKNOWN Referring Unavailable PCP, NOT IN SYSTEM Primary Care Unavailable PHYSICIAN, UNKNOWN Referring Unavailable PCP, NOT IN SYSTEM Primary Care Unavailable RENAE STAFFORD Attending Unavailable PHYSICIAN, UNKNOWN Referring Unavailable PCP, NOT IN SYSTEM Primary Care Unavailable PHYSICIAN, UNKNOWN Referring Unavailable PCP, NOT IN SYSTEM Primary Care Unavailable PHYSICIAN, UNKNOWN Referring Unavailable PCP, NOT IN SYSTEM Primary Care Unavailable REF PROV, NOT IN SYSTEM Referring Unavaila ble PCP, NOT IN SYSTEM Primary Care Unavailable RENAE STAFFORD Attending Unavailable REF PROV, NOT IN SYSTEM Referring Unavaila ble PCP, NOT IN SYSTEM Primary Care Unavailable REF PROV, NOT IN SYSTEM Referring Unavaila ble PCP, NOT IN SYSTEM Primary Care Unavailable RENAE STAFFORD Attending Unavailable REF PROV, NOT IN SYSTEM Referring Unavaila ble PCP, NOT IN SYSTEM Primary Care Unavailable Unavailable Primary Care Provider Unavailabl e [facility] Provide r ANNABELLA WARREN Referring Unavailable ANNABELLA WARREN Primary Care Unavailable ANNABELLA WARREN Primary Care Unavailable ANNABELLA WARREN Referring Unavailable NOLAN, SREE Attending Unavailable NOLAN, SREE Attending Unavailable NOLAN, SREE Attending Unavailable NOLAN, SREE Attending Unavailable ESTEPHANIA, DEBORAH Attending Unavailable ESTEPHANIA, DEBORAH Attending Unavailable ESTEPHANIA, DEBORAH Attending Unavailable ESTEPHANIA, DEBORAH Attending Unavailable ESTEPHANIA, DEBORAH Attending Unavailable Allergies Allergy Classification Reported Allergen(s) Allergy Type Date of Onset Reaction(s) Facility Cephalosporins (antibiotic) (1 source) cefprozil Drug Allergy [address] [facility] (20 sources) cefprozil; Translations: [CEFPROZIL] Drug Allergy 6 [employer] [place] (20 sources) Cefprozil Propensity to adverse reactions 6 [facility] (20 sources) Sodium Chloride; Translations: [SODIUM CHLORIDE] Drug Allergy 4 [facility] [employer] [facility] (6 sources) Latex; Translations: [LATEX] Propensity to adverse reactions to drug (disorder) 4 [facility] (5 sources) Sodium Chloride Drug Allergy 4 [facility] Medications Current Medications Medication Drug Class(es) Dates Sig (Normalized) Sig (Original) acetaminophen 500 mg oral tablet (20 sources) Start: 08-07-2024 End: 08-30-2024 take 2 tablets by mouth every eight hours acetaminophen (TYLENOL EXTRA STRENGTH) 500 mg tablet Take 2 tablets (1,000 mg total) by mouth every 8 (eight) hours. 30 tablet 08/07/2024 08/30/2024 Discontinued (Therapy completed) amoxicillin 875 mg oral tablet (10 sources) Penicillin-class Antibacterial Start: 08-15-2024 End: 08-20-2024 take 1 tablet by mouth once amoxicillin (AMOXIL) 875 mg tablet Take 1 tablet (875 mg total) by mouth every 12 (twelve) hours for 5 days. 10 tablet 08/15/2024 08/20/2024 Active benzonatate 100 mg oral capsule (1 source) Non-narcotic Antitussive Start: 01-06-2025 End: 01-16-2025 take 1 capsule by mouth three times daily as needed for cough benzonatate (TESSALON) 100 MG capsule Take 1 capsule by mouth 3 times daily as needed for Cough 30 capsule 01/06/2025 01/16/2025 Active ciprofloxacin 500 mg oral tablet (1 source) Quinolone Antimicrobial Start: 01-06-2025 End: 01-11-2025 take 1 tablet by mouth twice daily ciprofloxacin (CIPRO) 500 MG tablet Take 1 tablet by mouth 2 times daily for 5 days 10 tablet 01/06/2025 01/11/2025 Active docusate sodium 100 mg oral capsule (20 sources) Start: 08-07-2024 End: 08-30-2024 take 1 capsule by mouth in the morning, then take 1 capsule by mouth at bedtime docusate sodium (COLACE) 100 mg capsule Take 1 capsule (100 mg total) by mouth in the morning and 1 capsule (100 mg total) before bedtime. 30 capsule 08/07/2024 08/30/2024 Discontinued (Therapy completed) ibuprofen 800 mg oral tablet (20 sources) Nonsteroidal Anti-inflammatory Drug Start: 08-07-2024 End: 08-30-2024 take 1 tablet by mouth every eight hours ibuprofen (MOTRIN) 800 mg tablet Take 1 tablet (800 mg total) by mouth every 8 (eight) hours. 30 tablet 08/07/2024 08/30/2024 Discontinued (Therapy completed) levonorgestrel 0.091513 mg/hr intrauterine system (11 sources) Progestin, Progestin-containin g Intrauterine Device Start: 11-09-2024 End: 11-09-2024 52 mg, Intrauterine, Once PRN Procedure, Starting on Fri11/09/24 at 0930, For 1 dose Start: 11-09-2024 End: 11-08-2029 Levonorgestrel intrauterine device 52 mg metFORMIN hydrochloride 500 mg oral tablet (3 [...] (with breakfast) 90 tablet 11 09/07/2019 Active nitrofurantoin, macrocrystals 25 mg / nitrofurantoin, monohydrate 75 mg oral capsule (1 source) Nitrofuran Antibacterial Start: 11-09-2024 End: 11-16-2024 take 1 capsule by mouth in the morning nitrofurantoin, macrocrystal-monohydrate, (Macrobid) 100 MG capsule Indications: Burning with urination Take 1 capsule (100 mg) by mouth in the morning and 1 capsule (100 mg) before bedtime. Do all this for 7 days. 14 capsule 11/09/2024 11/16/2024 Active 25/iron fum/folic/dha (-1 ORAL) (20 sources) take 1 tablet by mouth in the morning 25/iron fum/folic/dha (-1 ORAL) Take 1 tablet by mouth in the morning. Active 25/iron fum/folic/dha (-1 ORAL) Take by mouth. Suspended 25/iron fum/folic/dha (-1 ORAL) Take by mouth. Active Olpbxbuk-Xyx-Qt-FA ( 1 + IRON PO) (19 sources) End: 09-28-2024 Utvxxols-Uyk-Fr-FA ( 1 + IRON PO) Take by mouth 09/28/2024 Discontinued Multivi t-Min-Fe-FA ( 1 + IRON PO) Take by mouth Active sertraline 25 mg oral tablet (20 sources) Serotonin Reuptake Inhibitor Start: 10-28-2023 take 1 tablet by mouth in the morning sertraline (Zoloft) 25 MG tablet Take 1 tablet by mouth in the morning. 10/28/2023 Active sulfamethoxazole 800 mg / trimethoprim 160 mg oral tablet (7 sources) Dihydrofolate Reductase Inhibitor Antibacterial, Sulfonamide Antimicrobial Start: 08-23-2024 End: 08-30-2024 take 1 tablet by mouth once in the morning sulfamethoxazol e-trimethoprim (BACTRIM DS) 800-160 mg per tablet Take 1 tablet by mouth in the morning and 1 tablet before bedtime. Do all this for 7 days. 14 tablet 08/23/2024 08/30/2024 Active Completed/Discontinued Medications Medication Drug Class(es) Dates Sig (Normalized) Sig (Original) 0.4 ml enoxaparin sodium 100 mg/ml prefilled syringe (20 sources) Low Molecular Weight Heparin Start: 04-21-2024 End: 09-17-2024 inject 0.4 mL by subcutaneous injection in the morning enoxaparin (LOVENOX) 40 mg/0.4 mL syringe Inject 0.4 mL (40 mg total) under the skin in the morning for 40 days. 20 mL 08/08/2024 08/17/2024 Discontinued (Therapy completed) End: 09-28-2024 inject 40 mg by subcutaneous injection once daily Enoxaparin Sodium 40 MG/0.4ML solution prefilled syringe Inject 40 mg under the skin Daily 09/28/2024 Discontinued oxyCODONE hydrochloride 5 mg oral tablet (9 sources) Opioid Agonist Start: 08-07-2024 End: 08-17-2024 take 1 tablet by mouth every six hours as needed for pain oxyCODONE (ROXICODONE) 5 mg immediate release tablet Indications: Post-operative pain Take 1 tablet (5 mg total) by mouth every 6 (six) hours as needed for pain for up to 15 doses. Max Daily Amount: 20 mg 15 tablet 08/07/2024 08/17/2024 Discontinued (Therapy completed) TRUE METRIX GLUCOSE METER misc (5 sources) Start: 07-19-2024 End: 08-17-2024 TRUE METRIX GLUCOSE METER misc See Admin Instructions. 07/19/2024 08/17/2024 Discontinued (Therapy completed) Start: 07-19-2024 TRUE METRIX GL UCOSE METER misc See Admin Instructions. 07/19/2024 Active Problems Active Problems Problem Classification Problem Date Documented Date Episodic/Chronic Anxiety disorders (6 sources) Anxiety; Translations: [Anxiety disorder, unspecified] Onset: 04-28-2015 04-28-2015 Chronic Cardiac dysrhythmias (1 source) Tachycardia, unspecified; Translations: [Tachycardia, unspecified] Onset: 08-03-2024 Episodic Complications of surgical procedures or medical care (1 source) Postoperative wound infection; Translations: [Infection following a procedure, other surgical site, initial encounter] 08-23-2024 Episodic Disorders of lipid metabolism (1 source) Mixed hyperlipidemia; Translations: [Mixed hyperlipidemia] Onset: 12-07-2024 12-07-2024 Chronic Genitourinary symptoms and ill-defined conditions (3 sources) Scalding pain on urination ; Translations: [Dysuria] Onset: 01-06-2025 11-09-2024 Episodic Menstrual disorders (7 sources) Irregular periods; Translations: [Dysmenorrhea] Onset: 09-21-2015 09-21-2015 Chronic Other complications of ; puerperium affecting management of mother (20 sources) wound disruption ; Translations: [Disruption of delivery wound] Onset: 08-17-2024 09-03-2024 Episodic Other complications of ; puerperium affecting management of mother (20 sources) Infection of obstetric surgical wound, unspecified; Translations: [Other complications of obstetrical surgical wounds, condition or complication] Onset: 08-17-2024 08-17-2024 Episodic Other complications of ; puerperium affecting management of mother (2 sources) Disruption of delivery wound; Translations: [Disruption of delivery wound] Onset: 08-17-2024 Episodic Other complications of (2 sources) Obesity complicating , unspecified trimester; Translations: [Obesity complicating , unspecified trimester] Onset: 04-07-2024 Chronic Other complications of (3 sources) Maternal obesity complicating , childbirth and the puerperium, antepartum; Translations: [Obesity complicating , unspecified trimester] 06-01-2024 Chronic Other complications of (9 sources) growth restriction; Translations: [Maternal care for other known or suspected poor growth, unspecified trimester, not applicable or unspecified] 07-27-2024 Episodic Other endocrine disorders (2 sources) Polycystic ovary syndrome; Translations: [Polycystic ovarian syndrome] Onset: 03-23-2023 03-23-2023 Chronic Other nervous system disorders (1 source) Other acute postprocedural pain; Translations: [Other acute postprocedural pain] Onset: 08-03-2024 Episodic Other nutritional; endocrine; and metabolic disorders (6 sources) Morbid obesity; Translations: [Morbid (severe) obesity due to excess calories] Onset: 09-13-2015 09-13-2015 Chronic Other and delivery including normal (10 sources) Second trimester ; Translations: [Encounter for supervision of normal , unspecified, second trimester] 06-30-2024 Episodic Other screening for suspected conditions (not mental disorders or infectious disease) (7 sources) Patient encounter status; Translations: [Encounter for screening for diabetes mellitus] Onset: 04-07-2024 Episodic Polyhydramnios and other problems of amniotic cavity (20 sources) Other specified disorders of amniotic fluid and membranes, second trimester, not applicable or unspecified; Translations: [Subchorionic hematoma] Onset: 04-21-2024 04-21-2024 Episodic Pulmonary heart disease (20 sources) Acute pulmonary embolism; Translations: [Other pulmonary embolism without acute cor pulmonale] Onset: 09-13-2015 Resolved: 11-01-2024 09-13-2015 Episodic Pulmonary heart disease (1 source) 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; Translations: [Embolism, pulmonary with infarction] Onset: 09-21-2015 09-21-2015 Residual codes; unclassified (2 sources) Gestation period, 28 weeks; Translations: [28 weeks gestation of ] 06-30-2024 Episodic Residual codes; unclassified (2 sources) Gestation period, 32 weeks; Translations: [32 weeks gestation of ] 07-27-2024 Episodic Skin and subcutaneous tissue infections (20 sources) Cellulitis; Translations: [Cellulitis, unspecified] Onset: 08-13-2024 08-13-2024 Episodic Unclassified (20 sources) OB Reminders Onset: 02-28-2024 02-28-2024 Unclassified (1 source) Negative Pressure Wound Therapy Onset: 09-03-2024 Unclassified (1 source) Dressing Change Onset: 08-18-2024 Unclassified (2 sources) Wound Check Onset: 08-17-2024 Unclassified (1 source) Post-op Problem Onset: 08-13-2024 Unclassified (1 source) Hx PE Onset: 04-07-2024 Past or Other Problems Problem Classification Problem Date Documented Da te Episodic/Chronic Deficiency and other anemia (6 sources) Iron deficiency anemia; Translations: [Iron deficiency anemia, unspecified] Onset: 09-14-2015 09-14-2015 Episodic Diabetes or abnormal glucose tolerance complicating ; childbirth; or the puerperium (3 sources) Impaired glucose tolerance in ; Translations: [Abnormal glucose complicating ] 07-16-2024 Episodic Hemorrhage during ; abruptio placenta; placenta previa (2 sources) Other antepartum hemorrhage, second trimester; Translations: [Other antepartum hemorrhage, second trimester] Onset: 04-21-2024 Episodic Mood disorders (20 sources) Mood disorders Onset: 08-16-2024 Resolved: 08-17-2024 08-17-2024 Other complications of (20 sources) Poor growth affecting management; Translations: [Maternal care for other known or suspected poor growth, first trimester, not applicable or unspecified] Onset: 05-05-2024 07-12-2024 Episodic Other complications of (2 sources) Maternal care for other known or suspected poor growth, second trimester, not applicable or unspecified; Translations: [Maternal care for other known or suspected poor growth, second trimester, not applicable or unspecified] Onset: 05-05-2024 Episodic Other complications of (2 sources) Circumvallate placenta, second trimester; Translations: [Circumvallate placenta, second trimester] Onset: 05-05-2024 Episodic Other complications of (20 sources) Placenta circumvallata; Translations: [Circumvallate placenta, second trimester] Onset: 05-05-2024 05-05-2024 Episodic Other complications of (1 source) Malformation of placenta, unspecified, unspecified trimester; Translations: [Malformation of placenta, unspecified, unspecified trimester] Onset: 05-28-2024 Episodic Other complications of (1 source) Thromboembolism in , first trimester; Translations: [Thromboembolism in , first trimester] Onset: 04-21-2024 Episodic Other complications of (1 source) Maternal care for other known or suspected poor growth, unspecified trimester, not applicable or unspecified; Translations: [Maternal care for other known or suspected poor growth, unspecified trimester, not applicable or unspecified] Onset: 04-07-2024 Episodic Other complications of (2 sources) Obstetric pulmonary embolism; Translations: [Thromboembolism in , first trimester] 04-21-2024 Episodic Phlebitis; thrombophlebitis and thromboembolism (6 sources) Thromboembolism of vein; Translations: [Acute embolism and thrombosis of unspecified vein] Onset: 03-21-2016 Resolved: 11-01-2024 03-21-2016 Episodic Residual codes; unclassified (3 sources) Gestation period, 30 weeks; Translations: [30 weeks gestation of ] 07-12-2024 Episodic Residual codes; unclassified (3 sources) Gestation period, 24 weeks; Translations: [24 weeks gestation of ] 06-02-2024 Episodic Residual codes; unclassified (1 source) 16 weeks gestation of ; Translations: [16 weeks gestation of ] Onset: 04-07-2024 Episodic Residual codes; unclassified (1 source) Gestation period, 16 weeks; Translations: [16 weeks gestation of ] 04-07-2024 Episodic Residual codes; unclassified (1 source) Gestation period, 33 weeks; Translations: [33 weeks gestation of ] 08-03-2024 Episodic Unclassified (6 sources) Wound infection following section, 09-10-2024 Results Test Name Value Interpretation Reference Range Facility [place] [address] Ultrasound Report Signed Patient: BARNEY OROSCO MR#: [id number] : 1995 Acct:[id number] Age/Sex: 30 / F ADM Date: 04/27/25 Loc: PST Attending Dr: Sree Francisco D.O. Ordering Physician: Sree Francisco D.O. Date of Service: 04/27/25 Procedure(s): US pelvis transvaginal Accession Number(s): [id number] cc: Sree Francisco D.O.; Annabella Warren NP [facility] [place] [id number] Patient Name: BARNEY OROSCO MRN: [facility]:[id number] date: 1995 Sex: F Assigned Patient Location: [facility] Current Patient Location: Accession/Order Number: [id number] Exam Date: 04/28/2025 09:10 Report Date: 04/28/2025 09:13 At the request of: SREE FRANCISCO DO Procedure: US pelvis transvaginal Pelvic ultrasound. Reason for exam: Encounter Friday removal Comparison: none Technique: Transvaginal imaging of the uterus and ovaries was also obtained. Additional spectral Doppler analysis of the ovaries was also obtained. Findings: Uterus measures 10.3 x 4.6 x 5.4 cm. No fibroid is seen. IUD is seen within the endometrial canal. Endometrium measures 9.7 mm. No focal endometrial abnormality is seen. Right ovary not visualized. Left ovary 4.3 x 2.1 x 3.2 cm without mass or cyst. No free fluid. Normal arterial and venous Doppler waveforms. US/US pelvis transvaginal Impression: IUD seen within the endometrial canal in satisfactory position. No acute process is seen. Right ovary not visualized. Impression dictated by: Chato Mohan Jr., D.O. 04/28/2025 9:13 AM Dictation Location: [place] [address] Electronically authenticated by: [id number] Y Date: 04/28/2025 09:13 Dictated By: Chato Mohan M.D. Signed By: 04/28/25914 DD/ 2 TD/TT: Insurance Billing Specialist: [facility] Radiology, Radiologist, - 04/28/2025 [place] [address] Ultrasound Report Signed Patient: BARNEY OROSCO MR#: [id number] : 1995 Acct:[id number] Age/Sex: 30 / F ADM Date: 04/27/25 Loc: [facility] Attending Dr: Sree Francisco D.O. Ordering Physician: Sree Francisco D.O. Date of Service: 04/27/25 Procedure(s): US pelvis transvaginal Accession Number(s): [id number] cc: Sree Francisco D.O.; Annabella Warren NP [place] [phone] Patient Name: BARNEY OROSCO MRN: [facility]:[id number] date: 1995 Sex: F Assigned Patient Location: [facility] Current Patient Location: Accession/Order Number: [id number] Exam Date: 04/28/2025 09:10 Report Date: 04/28/2025 09:13 At the request of: SREE FRANCISCO DO Procedure: US pelvis transvaginal Pelvic ultrasound. Reason for exam: Encounter Friday removal Comparison: none Technique: Transvaginal imaging of the uterus and ovaries was also obtained. Additional spectral Doppler analysis of the ovaries was also obtained. Findings: Uterus measures 10.3 x 4.6 x 5.4 cm. No fibroid is seen. IUD is seen within the endometrial canal. Endometrium measures 9.7 mm. No focal endometrial abnormality is seen. Right ovary not visualized. Left ovary 4.3 x 2.1 x 3.2 cm without mass or cyst. No free fluid. Normal arterial and venous Doppler waveforms. US/US pelvis transvaginal Impression: IUD seen within the endometrial canal in satisfactory position. No acute process is seen. Right ovary not visualized. Impression dictated by: Chato Mohan Jr., D.O. 04/28/2025 9:13 AM Dictation Location: [place] [address] Electronically authenticated by: [id number] Y Date: 04/28/2025 09:13 Dictated By: Chato Mohan M.D. Signed By: 04/28/25914 DD/ 2 TD/TT: Insurance Billing Specialist: [facility] Radiology Study observation (narrative) [facility] US PELVIS TRANSVAGINALOrdere d By: Radiologist Radiology on 04-28-2025 [facility] Work Phone: IUD Insertionon 04-25-2025 Hodan BatemanREHAN 04/27/2025 10:36 AM IUD Insertion Performed by: Sree Francisco DO Authorized by: Sree Francisco DO Procedure: IUD removal Consent obtained by patient, parent, or legal power of assistant district attorney - including discussion of procedure risks and benefits, patient questions answered, and patient education provided: yes Reason for removal: patient request Strings visualized: no Tenaculum applied to cervix: yes Cervix manually dilated: no IUD grasped by forceps: no IUD removed: no Unable to remove IUD, refer for: removal at another facility [facility] IGP,APTIMA HPV,AGE GDLNon AGE GDLN ACOG TESTING Note . [facility] Comment on above: TESTS RESULT FLAG UN ITS REF RANGE LAB Clinician Provided Cytology Information Source.............Cervix;Endocervix No. of containers..01 ThinPrep Vial Age Algo ACOG Jasmin... -14 10 FLAG LEGEND: L-Low Normal,H-High Normal,LL-Alert Low,HH-Alert High <-Panic Low,>-Panic High,A-Abnormal,AA-Critical Abnormal Performed at: 01 [facility] [place] [address] Angelique Holland MD, IGP, RFX APTIMA HPV ASCU Note . [facility] Comment on above: TESTS RESULT FLAG UN ITS REF RANGE LAB DIAGNOSIS: 02 NEGATIVE FOR INTRAEPITHELIAL LESION OR MALIGNANCY. CELLULAR CHANGES ASSOCIATED WITH INFLAMMATION ARE PRESENT. Specimen adequacy: 02 Satisfactory for evaluation. Endocervical and/or squamous metaplastic cells (endocervical component) are present. Performed by: 02 [employer] Lab Teacher ([facility]) . 02 Note: Note 02 The Pap smear is a screening test designed to aid in the detection of premalignant and malignant conditions of the uterine cervix. It is not a diagnostic procedure and should not be used as the sole means of detecting cervical cancer. Both false-positive and false-negative reports do occur. Test Methodology: Note 02 This liquid based ThinPrep(R) pap test was screened with the use of an image guided system. . 02 The HPV DNA reflex criteria were not met with this specimen result therefore, no HPV testing was performed. FLAG LEGEND: L-Low Normal,H-High Normal,LL-Alert Low,HH-Alert High <-Panic Low,>-Panic High,A-Abnormal,AA-Critical Abnormal Performed at: [facility] [place] [address] Angelique Holland MD, Performed at: = - [facility] [address] [id number] Demurrage Worker: Angelique Holland MD, Phone: [phone] Performed at: [facility] [id number] Demurrage Worker: Angelique Holland MD, Phone: [phone] BRUSH-SPATULA CERVIX ENDOCERVIX [facility] Cult,Urineon 01-08-2025 Cult,Urine Specimen Description .URINE Culture ESCHERICHIA COLI >100,000 CFU/ML Report Status FINAL 01/08/2025 SUSCEPTIBILITY Organism ESCHERICHIA COLI Method PRISCILLA Ampicillin 4 SUSCEPTIBLE Cefazolin <=4 SUSCEPTIBLE Cefazolin sensitivity results can be used to predict the effectiveness of oral cephalosporins (eg. Cephalexin) in uncomplicated Urinary Tract Infections due to E. coli, K. pneumoniae, and P. mirabilis Ceftriaxone <=0.25 SUSCEPTIBLE ESBL NEGATIVE Gentamicin <=1 SUSCEPTIBLE Levofloxacin <=0.12 SUSCEPTIBLE Piperacillin/Tazoba ctam <=4 SUSCEPTIBLE Tobramycin <=1 SUSCEPTIBLE Trimethoprim/Sulfa <=20 SUSCEPTIBLE Susceptible [facility] Comment on above: Performed By: #### A ST, BMP, CBC, ALT #### [facility] [address] [place] [address] [place] [address] Demurrage Worker: Robert Casiano MD #### FERI, AHCV, GLYHGB, FEBC #### [facility] [address] [place] [address] Demurrage Worker: Ivan Perez MD Microscopic Urinalysison Bacteria LM Ql (Urine sed) 2+ Abnormal None [facility] Character (U) Urine Reflexed to Culture Abnormal NOT REQ. [facility] Epithelial cells LM.HPF (Urine sed) [#/Area] 0 TO 2 [facility] RBC LM.HPF (Urine sed) [#/Area] None [facility] WBC LM.HPF (Urine sed) [#/Area] 10 TO 20 [facility] No Panel Informationon 01-06 Interpretation and review of laboratory results Abnormal [facility] UA w/Reflex Cultureon 2024 Bilirubin, SemiQt,Ur Negative Normal NEG [facility] Comment on above: Performed By: #### A ST, BMP, CBC, ALT #### [facility] [address] [place] [address] [place], [place] [id number] Demurrage Worker: Robert Casiano MD #### CELSO PRIETO, GLYHGB, FEBC #### [address] [id number] Demurrage Worker: Ivan Perez MD Blood, Urine Negative Normal NEG [facility] Comment on above: Performed By: #### A ST, BMP, CBC, ALT #### [facility] [address] [place] [address] [place], [place] [id number] Demurrage Worker: Robert Casiano MD #### CELSO PRIETO, GLYHGB, FEBC #### [address] [id number] Demurrage Worker: Ivan Perez MD Clarity (U) Clear Normal CLEAR [facility] Comment on above: Performed By: #### A ST, BMP, CBC, ALT #### [address] [place], [place] [id number] Demurrage Worker: Robert Casiano MD #### CELSO PRIETO, GLYHGB, FEBC #### [address] [phone] Demurrage Worker: Ivan Perez MD Color (U) Summit Abnormal YEL [facility] Comment on above: Performed By: #### A ST, BMP, CBC, ALT #### [facility] [address] [place] [address] [place], [place] [id number] Demurrage Worker: Robert Casiano MD #### CELSO PRIETO, GLYHGB, FEBC #### [address] [address] Demurrage Worker: Ivan Perez MD Glucose Ql (U) TRACE Abnormal NEG [facility] Comment on above: Performed By: #### A ST, BMP, CBC, ALT #### [address] [place] [address] Demurrage Worker: Robert Casiano MD #### CELSO PRIETO, GLYHGB, FEBC #### [address] [phone] Demurrage Worker: Ivan Perez MD Ketones Ql (U) Negative Normal NEG [facility] Comment on above: Performed By: #### A ST, BMP, CBC, ALT #### [facility] [address] [place] [address] [place] [address] Demurrage Worker: Robert Casiano MD #### CELSO PRIETO, GLYHGB, FEBC #### [address] [phone] Demurrage Worker: Ivan Perez MD Leukocyte esterase Test strip Ql (U) TRACE Abnormal NEG [facility] Comment on above: Performed By: #### A ST, BMP, CBC, ALT #### [facility] [address] [place] [address] [place] [address] Demurrage Worker: Robert Casiano MD #### CELSO PRIETO, GLYHGB, FEBC #### [address] [phone] Demurrage Worker: Ivan Perez MD Nitrite,Ur Positive Abnormal NEG [facility] Comment on above: Performed By: #### A ST, BMP, CBC, ALT #### [address] [place] [address] Demurrage Worker: Robert Casiano MD #### CELSO PRIETO, GLYHGB, FEBC #### [address] [phone] Demurrage Worker: Ivan Perez MD PH,Ur 6.0 Normal 5.0-9.0 [facility] Comment on above: Performed By: #### A ST, BMP, CBC, ALT #### [address] [place], [place] [phone] Demurrage Worker: Robert Casiano MD #### CELSO PRIETO, GLYHGB, FEBC #### [address] [phone] Demurrage Worker: Ivan Perez MD Protein Ql (U) TRACE Abnormal NEG [facility] Comment on above: Performed By: #### A ST, BMP, CBC, ALT #### [address] [place], [place] [id number] Demurrage Worker: Robert Casiano MD #### CELSO PRIETO, GLYHGB, FEBC #### [address] [phone] Demurrage Worker: Ivan Perez MD Spec. [place],Ur 1.025 High 1.010-1.020 [facility] Comment on above: Performed By: #### A ST, BMP, CBC, ALT #### [address] [place], [place] [phone] Demurrage Worker: Robert Casiano MD #### CELSO PRIETO, GLYHGB, FEBC #### [address] [phone] Demurrage Worker: Ivan Perez MD Urobilinogen,Ur Normal Normal 0.0-1.0 [facility] Comment on above: Performed By: #### A ST, BMP, CBC, ALT #### [facility] [address] [place] [address] [place] [address] Demurrage Worker: Robert Casiano MD #### CELSO PRIETO, GLYHGB, FEBC #### [address] [phone] Demurrage Worker: Ivan Perez MD Urinalysis with Reflex to Cu ltureon 01-06-2025 Bilirubin Ql (U) Negative NEGATIVE [facility] Clarity (U) Clear Clear [facility] Color (U) Summit Abnormal Yellow [facility] Glucose Test strip (U) [Mass/Vol] TRACE Abnormal NEGATIVE mg/dL [facility] Hemoglobin Auto test strip Ql (U) Negative NEGATIVE [facility] Ketones (U) [Mass/Vol] Negative NEGATIVE mg/d L [facility] Leukocyte esterase Test strip Ql (U) TRACE Abnormal NEGATIVE [facility] Nitrite Ql (U) Positive Abnormal NEGATIVE [facility] pH (U) 6 [pH] 5.0 - 9.0 [facility] Protein (U) [Mass/Vol] TRACE Abnormal NEGATIVE mg/d L [facility] Specific gravity (U) [Rel density] 1.025 High 1.010 - 1.020 [facility] Urobilinogen Qn (U) Normal 0.0 - 1. 0 EU/dL [facility] Urinalysis,Microon 5 Bacteria 2+ Abnormal NONE [facility] Comment on above: Performed By: #### A ST, BMP, CBC, ALT #### [facility] [address] [place] [address] Demurrage Worker: Robert Casiano MD #### CELSO PRIETO, SAYDAB, FEBC #### [address] [phone] Demurrage Worker: Ivan Perez MD Epithelial cells LM Ql (Urine sed) 0 TO 2 Normal 0-25 [facility] Comment on above: Performed By: #### A ST, BMP, CBC, ALT #### [facility] [address] [place] [address] Demurrage Worker: oRbert Casiano MD #### CELSO PRIETO, SAYDAB, FEBC #### [address] [address] Demurrage Worker: Ivan Perez MD Other Observations Urine Reflexed to Culture [facility] Comment on above: Performed By: #### A ST, BMP, CBC, ALT #### [facility] [address] [place], [place] [phone] Demurrage Worker: Robert Casiano MD #### FERI, AHCV, GLYHGB, FEBC #### [address] [id number] Demurrage Worker: Ivan Perez MD Urine RBC's None Normal 0-2 [facility] Comment on above: Performed By: #### A ST, BMP, CBC, ALT #### [facility] [address] [place] [address] [place], [place] [phone] Demurrage Worker: Robert Casiano MD #### FERI, AHCV, GLYHGB, FEBC #### [address] [phone] Demurrage Worker: Ivan Perez MD Urine WBC's 10 TO 20 Normal 0-5 [facility] Comment on above: Performed By: #### A ST, BMP, CBC, ALT #### [facility] [address] [place] [address] [place] [address] Demurrage Worker: Robert Casiano MD #### FERI, AHCV, GLYHGB, FEBC #### [address] [address] Demurrage Worker: Ivan Perez MD Mack 12-06-2024 ALT [Catalytic activity/Vol] 20 U/L 10 - 35 U/L [facility] ALT [Catalytic activity/Vol] 20 U/L Normal 10-35 [facility] Comment on above: Performed By: #### A ST, BMP, CBC, ALT #### [facility] [address] [place] [address] [place]. [place], [place] [phone] Demurrage Worker: Robert Casiano MD #### FERI, AHCV, GLYHGB, FEBC #### [address] [phone] Demurrage Worker: Ivan Perez MD Yesi 12-06-2024 AST [Catalytic activity/Vol] 16 U/L 10 - 35 U/L [facility] AST [Catalytic activity/Vol] 16 U/L Normal 10-35 [facility] Comment on above: Performed By: #### A ST, BMP, CBC, ALT #### [facility] [address] [place] [address] Demurrage Worker: Robert Casiano MD #### FERI, AHCV, GLYHGB, FEBC #### [facility] [address] [place] [address] Demurrage Worker: Ivan Perez MD Basic Metabolic Panelon 11-14 Anion gap [Moles/Vol] 10 mmol/L 9 - 16 mmol/L [facility] Calcium [Mass/Vol] 9.6 mg/dL 8.6 - 10. 4 mg/dL [facility] Chloride [Moles/Vol] 106 mmol/L 98 - 10 7 mmol/L [facility] CO2 [Moles/Vol] 25 mmol/L 20 - 31 mmol/L [facility] Creatinine [Mass/Vol] 0.7 mg/dL 0.50 - 0.90 mg/dL [facility] Est, Harley Barrost Rate - PINF [facility] Comment on above: These results are not intended for use [...] following therapy that affects renal tubular secretion. Glucose [Mass/Vol] 91 mg/dL 74 - 99 mg/dL [facility] Interpretation and review of laboratory results Abnormal [facility] Potassium [Moles/Vol] 4.3 mmol/L 3.7 - 5.3 mmol/L [facility] Sodium [Moles/Vol] 141 mmol/L 136 - 145 mmol/L [facility] Urea nitrogen [Mass/Vol] 17 mg/dL 6 - 20 mg/dL [facility] Urea nitrogen/Creatinine [Mass ratio] 24 mg/mg High 9 - 20 [facility] Basic Metabolic Profon 12-06 Anion gap [Moles/Vol] 10 mmol/L Normal 9-16 [facility] Comment on above: Performed By: #### A ST, BMP, CBC, ALT #### [facility] [address] [place] [address] [place] [address] Demurrage Worker: Robert Casiano MD #### CONNER, GRADYCV, GLYHGB, FEBC #### [address] [address] Demurrage Worker: Ivan Perez MD BUN/CRE Ratio 24 High - [facility] Comment on above: Performed By: #### A ST, BMP, CBC, ALT #### [facility] [address] [place] [address] [place] [phone] Demurrage Worker: Robert Casiano MD #### CONNER, CELSO, GLYHGB, FEBC #### [place] [phone] Demurrage Worker: Ivan Perez MD Calcium [Mass/Vol] 9.6 mg/dL Normal 8.6-10.4 [facility] Comment on above: Performed By: #### A ST, BMP, CBC, ALT #### [facility] [address] [place] [address] [place] [address] Demurrage Worker: Robert Casiano MD #### CONNER, GRADYCV, GLYHGB, FEBC #### [address] [address] Demurrage Worker: Ivan Perez MD Chloride [Moles/Vol] 106 mmol/L Normal 98-107 [facility] Comment on above: Performed By: #### A ST, BMP, CBC, ALT #### [facility] [place] [place], [place] 7771283 Demurrage Worker: Robert Casiano MD #### CELSO PRIETO, GLYHGB, FEBC #### [address] [phone] Demurrage Worker: Ivan Perez MD CO2 [Moles/Vol] 25 mmol/L Normal 20-31 [facility] Comment on above: Performed By: #### A ST, BMP, CBC, ALT #### [address] [place], [place] [id number] Demurrage Worker: Robert Casiano MD #### CELSO PRIETO, GLYHGB, FEBC #### [address] [phone] Demurrage Worker: Ivan Perez MD Creatinine [Mass/Vol] 0.7 mg/dL Normal 0.50-0.90 [facility] Comment on above: Performed By: #### A ST, BMP, CBC, ALT #### [address] [place], [place] [phone] Demurrage Worker: Robert Casiano MD #### CELSO PRIETO, GLYHGB, FEBC #### [address] [phone] Demurrage Worker: Ivan Perez MD GFR/1.73 sq M.predicted among non-blacks MDRD (S/P/Bld) [Vol rate/Area] mL/min/{1.73_m2} Normal >60 [facility] Comment on above: Result [...] affects renal tubular secretion. Performed By: #### A ST, BMP, CBC, ALT #### [facility] [address] [place], [place] [phone] Demurrage Worker: Robert Casiano MD #### CONNER, GRADYCV, GLYHGB, FEBC #### [address] [address] Demurrage Worker: Ivan Perez MD Glucose [Mass/Vol] 91 mg/dL Normal 74-99 [facility] Comment on above: Performed By: #### A ST, BMP, CBC, ALT #### [facility] [address] [place], [place] [phone] Demurrage Worker: Robert Casiano MD #### CONNER, GRADYCV, GLYHGB, FEBC #### [address] [phone] Demurrage Worker: Ivan Perez MD Potassium [Moles/Vol] 4.3 mmol/L Normal 3.7-5.3 [facility] Comment on above: Performed By: #### A ST, BMP, CBC, ALT #### [facility] [address] [place], [place] [id number] Demurrage Worker: Robert Casiano MD #### CONNER, GRADYCV, GLYHGB, FEBC #### [address] [address] Demurrage Worker: Ivan Perez MD Sodium [Moles/Vol] 141 mmol/L Normal 136-145 [facility] Comment on above: Performed By: #### A ST, BMP, CBC, ALT #### [facility] [address] [place], [place] [phone] Demurrage Worker: Robert Casiano MD #### CONNER, AHCV, GLYHGB, FEBC #### [address] [address] Demurrage Worker: Ivan Perez MD Urea nitrogen [Mass/Vol] 17 mg/dL Normal 6-20 [facility] Comment on above: Performed By: #### A ST, BMP, CBC, ALT #### [facility] [address] [place] [address] Demurrage Worker: Robert Casiano MD #### ABIDAI, AHCV, GLYHGB, FEBC #### [facility] [address] [place], [place] [phone] Demurrage Worker: Ivan Perez MD CBCon 12-06-2024 Erythrocyte distribution width (RBC) [Ratio] 13.9 % 11.8 - 14.4 % [facility] Hematocrit (Bld) [Volume fraction] 42.8 % 36.3 - 47.1 % [facility] Hemoglobin (Bld) [Mass/Vol] 13.8 g/dL 11.9 - 15.1 g/dL [facility] MCH (RBC) [Entitic mass] 27.8 pg 25.2 - 33.5 pg [facility] MCHC (RBC) [Mass/Vol] 32.2 g/dL 28.4 - 34.8 g/dL [facility] MCV (RBC) [Entitic vol] 86.1 fL 82.6 - 102.9 fL [facility] Nucleated RBC/100 WBC (Bld) [Ratio] 0 % 0.0 per 100 WBC [facility] Platelet mean volume (Bld) [Entitic vol] 8.6 fL 8.1 - 13.5 fL [facility] Platelets (Bld) [#/Vol] 324 10*3/uL [facility] RBC (Bld) [#/Vol] 4.97 10*6/uL 3.95 - 5.1 1 m/uL [facility] WBC other (Bld) [#/Vol] 7.5 B [facility] Erythrocyte distribution width (RBC) [Ratio] 13.9 % Normal 11.8-14.4 [facility] Comment on above: Performed By: #### A ST, BMP, CBC, ALT #### [facility] [address] [place], [place] [id number] Demurrage Worker: Robert Casiano MD #### FERI, AHCV, GLYHGB, FEBC #### [address] [phone] Demurrage Worker: Ivan Perez MD Hematocrit (Bld) [Volume fraction] 42.8 % Normal 36.3-47.1 [facility] Comment on above: Performed By: #### A ST, BMP, CBC, ALT #### [address] [place] [address] Demurrage Worker: Robert Casiano MD #### CONNER, AHCV, GLYHGB, FEBC #### [address] [phone] Demurrage Worker: Ivan Perez MD Hemoglobin (Bld) [Mass/Vol] 13.8 g/dL Normal 11.9-15.1 [facility] Comment on above: Performed By: #### A ST, BMP, CBC, ALT #### [address] [place] [address] Demurrage Worker: Robert Casiano MD #### CONNER, CELSO, GLYHGB, FEBC #### [address] [phone] Demurrage Worker: Ivan Perez MD MCH (RBC) [Entitic mass] 27.8 pg Normal 25.2-33.5 [facility] Comment on above: Performed By: #### A ST, BMP, CBC, ALT #### [address] [place] [address] Demurrage Worker: Robert Casiano MD #### CONNER, AHCV, GLYHGB, FEBC #### [place] [address]489[address] [place], [place] [phone] Demurrage Worker: Ivan Perez MD MCHC (RBC) [Mass/Vol] 32.2 g/dL Normal 28.4-34.8 [facility] Comment on above: Performed By: #### A ST, BMP, CBC, ALT #### [address] [place] [phone] Demurrage Worker: Robert Casiano MD #### ABIDAI, AHCV, GLYHGB, FEBC #### [place] [phone] Demurrage Worker: Ivan Perez MD MCV (RBC) [Entitic vol] 86.1 fL Normal 82.6-102.9 [facility] Comment on above: Performed By: #### A ST, BMP, CBC, ALT #### [address] [place] [phone] Demurrage Worker: Robert Casiano MD #### CONNER, GRADYCV, GLYHGB, FEBC #### [place] [phone] Demurrage Worker: Ivan Perez MD NRBC Automated 0.0 per 100 WBC Normal 0.0 [facility] Comment on above: Performed By: #### A ST, BMP, CBC, ALT #### [address] [place] [phone] Demurrage Worker: Robert Casiano MD #### CONNER, GRADYCV, GLYHGB, FEBC #### [place] [phone] Demurrage Worker: Ivan Perez MD Platelet mean volume (Bld) [Entitic vol] 8.6 fL Normal 8.1-13.5 [facility] Comment on above: Performed By: #### A ST, BMP, CBC, ALT #### [address] [place] [address] Demurrage Worker: Robert Casiano MD #### CONNER, AHCV, GLYHGB, FEBC #### [address] [address] Demurrage Worker: Ivan Perez MD Platelets (Bld) [#/Vol] 324 10*3/uL Normal 138-453 [facility] Comment on above: Performed By: #### A ST, BMP, CBC, ALT #### [facility] [address] [place] [address] Dr. [place], [place] [phone] Demurrage Worker: Robert Casiano MD #### FERI, AHCV, GLYHGB, FEBC #### [place] [address] [place] [address] Demurrage Worker: Ivan Perez MD RBC (Bld) [#/Vol] 4.97 10*6/uL Normal 3.95-5.11 [facility] Comment on above: Performed By: #### A ST, BMP, CBC, ALT #### [facility] [address] [place] [address] [place]. [place] [phone] Demurrage Worker: Robert Casiano MD #### FERI, AHCV, GLYHGB, FEBC #### [address] [address] Demurrage Worker: Ivan Perez MD WBC (Bld) [#/Vol] 7.5 10*3/uL Normal 3.5-11.3 [facility] Comment on above: Performed By: #### A ST, BMP, CBC, ALT #### [facility] [address] [place] [address] Dr. [place] [phone] Demurrage Worker: Robert Casiano MD #### FERI, AHCV, GLYHGB, FEBC #### [place] [address] [place] [address] Demurrage Worker: Ivan Perez MD Ferritinon 12-06-2024 Ferritin [Mass/Vol] 42 ng/mL Normal 15-150 [facility] Comment on above: FERRITIN Reference Ranges: Adult Males 20 - 60 years: 30 - 400 ng/mL Adult females 17 - 60 years: 13 - 150 ng/mL Adults greater than 60 years: no established reference range Pediatrics: no established reference range Result Comment: FERRITIN Reference Ranges: Adult Males 20 - 60 years: 30 - 400 ng/mL Adult females 17 - 60 years: 13 - 150 ng/mL Adults greater than 60 years: no established reference range Pediatrics: no established reference range Performed By: #### A ST, BMP, CBC, ALT #### [facility] [address] [place] [address] [place] [address] Demurrage Worker: Robert Casiano MD #### CONNER, AHCV, GLYHGB, FEBC #### [facility] [address] [place] [address] Demurrage Worker: Ivan Perez MD [facility] Hemoglobin A1Con 12-06-2024 Average glucose Estimated from glycated hemoglobin (Bld) [Mass/Vol] 105 mg/dL [facility] Comment on above: The ADA and AACC rec ommend providing the estimated average glucose result to permit better patient understanding of their HBA1c result. HbA1c (Bld) [Mass fraction] 5.3 % 4.0 - 6.0 % [facility] Glucose [Mass/Vol] 105 mg/dL Normal [facility] Comment on above: Result Comment: The ADA and AACC recommend providing the estimated average glucose result to permit better patient understanding of their HBA1c result. Performed By: #### A ST, BMP, CBC, ALT #### [facility] [address] [place] [address] [place] [address] Demurrage Worker: Robert Casiano MD #### CONNER, AHCV, GLYHGB, FEBC #### [facility] [address] [place] [address] Demurrage Worker: Ivan Perez MD HbA1c (Bld) [Mass fraction] 5.3 % Normal 4.0-6.0 [facility] Comment on above: Performed By: #### A ST, BMP, CBC, ALT #### [facility] [address] [place] [address] [place] [address] Demurrage Worker: Robert Casiano MD #### GRADY PRIETOCV, GLYHGB, FEBC #### [place] [address] [place], [place] [phone] Demurrage Worker: Ivan Perez MD Hep C Abon 12-06-2024 Hep C Ab Non-Reactive Normal NR [facility] Comment on above: Result Comment: The hepatitis C procedure used in [...] recommended by ordering HCV RNA by PCR. Performed By: #### A ST, BMP, CBC, ALT #### [facility] [address] [place] [address] [place] [address] Demurrage Worker: Robert Casiano MD #### CELSO PRIETO, GLYHGB, FEBC #### [address] [id number] Demurrage Worker: Ivan Perez MD Hepatitis C Antibodyon 12-06 HCV Ab IA Ql Non-Reactive NONREACTIVE [facility] Comment on above: The hepatitis C procedure used in our [...] recommended by ordering HCV RNA by PCR. [facility] Iron Binding Cap.on 12-07-19 25 % Fe Saturation 23 % Normal 20-55 [facility] Comment on above: Performed By: #### A ST, BMP, CBC, ALT #### [facility] [address] [place] [address] [place] [address] Demurrage Worker: Robert Casiano MD #### CONNER, AHCV, GLYHGB, FEBC #### [address] [id number] Demurrage Worker: Ivan Perez MD Iron [Mass/Vol] 77 ug/dL Normal 37-145 [facility] Comment on above: Performed By: #### A ST, BMP, CBC, ALT #### [facility] [address] [place] [address] [place]. [place], [place] [id number] Demurrage Worker: Robert Casiano MD #### FERMars, GRADYCV, GLYHGB, FEBC #### [address] [phone] Demurrage Worker: Ivan Perez MD Total Fe Binding Cap 338 ug/dL Normal 250-450 [facility] Comment on above: Performed By: #### A ST, BMP, CBC, ALT #### [facility] [address] [place] [address] Dr. [place], [place] [phone] Demurrage Worker: Robert Casiano MD #### CONNER, GRADYCV, GLYHGB, FEBC #### [address] [phone] Demurrage Worker: Ivan Perez MD Unbound Fe Bind Cap 261 ug/dL Normal 112-347 [facility] Comment on above: Performed By: #### A ST, BMP, CBC, ALT #### [facility] [address] [place] [address] Dr. [place], [place] [phone] Demurrage Worker: Robert Casiano MD #### CONNER, AHCV, GLYHGB, FEBC #### [address] [phone] Demurrage Worker: Ivan Perez MD Iron and TIBCon 12-06-2024 Iron [Mass/Vol] 77 ug/dL 37 - 145 ug/dL [facility] Iron binding capacity [Mass/Vol] 338 ug/dL 250 - 450 ug/dL [facility] Iron saturation [Mass fraction] 23 % 20 - 55 % [facility] UIBC 261 ug/dL 112 - 347 ug/dL [facility] Lipid Panelon 12-06-2024 Cholesterol [Mass/Vol] 192 mg/dL 0 - 199 mg/dL [facility] Comment on above: Cholesterol Guidelines: <200 Desirable 200-240 Borderline >240 Undesirable Cholesterol in HDL [Mass/Vol] 47 mg/dL 40 - PINF mg/dL [facility] Comment on above: HDL Guidelines: <40 Undesirable 40-59 Borderline >59 Desirable Cholesterol in LDL [Mass/Vol] 117 mg/dL High 0 - 100 mg/dL [facility] Comment on above: LDL Guidelines: <100 Desirable 100-129 Near to/above Desirable 130-159 Borderline >159 Undesirable Direct (measured) LDL and calculated LDL are not interchangeable tests. Cholesterol in VLDL [Mass/Vol] 28 mg/dL 1 - 30 mg/dL [facility] [employer] Cholesterol.total/Claudine sterol in HDL [Mass ratio] 4.1 {ratio} [facility] Interpretation and review of laboratory results Abnormal [facility] Triglyceride [Mass/Vol] 140 mg/dL NINF - 150 mg/dL [facility] Comment on above: Triglyceride Guidelines: <150 Desirable 150-199 Borderline 200-499 High >499 Very high Based on AHA Guidelines for fasting triglyceride, June 2012. [facility] Lipid Profileon 12-06-2024 Cholesterol [Mass/Vol] 192 mg/dL Normal 0-199 [facility] Comment on above: Result Comment: Cholesterol Guidelines: <200 Desirable 200-240 Borderline >240 Undesirable Performed By: #### L IPR #### depict [address] [place], [place] [address] Demurrage Worker: Ivan Perez MD Cholesterol in HDL [Mass/Vol] 47 mg/dL Normal >40 [facility] Comment on above: Result Comment: HDL Guidelines: <40 Undesirable 40-59 Borderline >59 Desirable Performed By: #### L IPR #### depict [address] [place], [place] [id number] Demurrage Worker: Ivan Perez MD Cholesterol in LDL [Mass/Vol] 117 mg/dL High 0-100 [facility] Comment on above: Result Comment: LDL Guidelines: <100 Desirable 100-129 Near to/above Desirable 130-159 Borderline >159 Undesirable Direct (measured) LDL and calculated LDL are not interchangeable tests. Performed By: #### L IPR #### [facility] [address] [place] [address] Demurrage Worker: Ivan Perez MD Cholesterol in VLDL [Mass/Vol] 28 mg/dL Normal 1-30 [facility] Comment on above: Performed By: #### L IPR #### [address] [place] [address] Demurrage Worker: Ivan Perez MD Cholesterol.total/Claudine sterol in HDL [Mass ratio] 4.1 {ratio} Normal [facility] Comment on above: Performed By: #### L IPR #### [address] [place] [address] Demurrage Worker: Ivan Perez MD Triglyceride [Mass/Vol] 140 mg/dL Normal <150 M [facility] Comment on above: Result Comment: Triglyceride Guidelines: <150 Desirable 150-199 Borderline 200-499 High >499 Very high Based on AHA Guidelines for fasting triglyceride, June 2012. Performed By: #### L IPR #### [address] [address] Demurrage Worker: Ivan Perez MD No Panel Informationon 12-06 [facility] TSH reflex to FT4on 12-07-19 25 TSH Qn 3.65 m[IU]/L [facility] TSH w/reflex to FT4on 2024 Thyroid Stim. Horm. 3.65 uIU/mL Normal 0.27-4.20 [facility] Comment on above: Performed By: #### T SHX #### [facility] [address] [place] [address] Demurrage Worker: Robert Casiano MD HCG ( test) Ql (U)o n 11-09-2024 Interpretation and review of laboratory results Normal [facility] Preg Test, Ur Negative Negative [facility] IUD Insertionon 11-09-2024 Lizeth Macario LPN 11/09/2024 3:57 PM IUD Insertion Performed by: Sree Francisco DO Authorized by: Sree Francisco DO Procedure: IUD insertion Consent obtained by patient, parent, or legal power of assistant district attorney - including discussion of procedure risks and benefits, patient questions answered, and patient education provided: yes risk: reasonably certain the patient is not Immediately prior to procedure a time out was called: no Pelvic exam performed: no Speculum placed in vagina: yes Cervix cleaned and prepped: yes Tenaculum/Allis/Rin g Forceps applied to cervix: yes Anesthesia used: no IUD inserted without complications: yes OSM: 52 mg Levonorgestrel 20 MCG/DAY Patient tolerated procedure well: yes Inserted with ultrasound guidance: no Intended removal date: 5 years Insertion comments: IUD Insertion: Patient presents today for an IUD Insertion. Patient is having a Mirena placed and written consent was obtained. Patient was placed in the dorsal lithotomy position with feet in stirrups. A sterile speculum ws placed into the vagina and the cervix was visualized. Cervix was cleansed with betadine and the anterior lip was grasped with ring forceps. Uterus was then gently sounded. New IUD device was gently advanced through the endocervix, toward te uterine fundus. The IUD was then deployed as device was gently removed from the uterus. The IUD strings were cut to the length from external os. All instruments were removed from the vagina. Post-procedure instructions given. All of patients questions were answered and she expressed understanding. Advised to call interim with any questions or concerns. Follow Up: Patient is to return to the office in 4 weeks for a string check. [facility] IUD InsertionOrdered By: Kain Macario on 11-09-2024 [facility] Urinalysis macro (dipstick) panel (U)on 11-09-2024 Bilirubin, UA Negative Negative - 4(70) +++ mg/dL [facility] Blood, UA Positive Negative - 50 Aaron/mcL [facility] Clarity, UA Clear [facility] Color, UA Yellow [facility] Glucose, UA Negative Negative - 2000(110) ++++ mg/dL [facility] Interpretation and review of laboratory results Abnormal [facility] Ketones, UA Negative Negative - 160(16) ++++ mg/dL [facility] Leukocytes, UA Moderate Negative - 500+++ Mikael/mcL [facility] Nitrite, UA Negative Negative - Positive [facility] pH, UA 5.5 5 - 9 [facility] Protein, UA Positive Negative - 2000(20) ++++ mg/dL [facility] Spec Grav, UA 1.03 1 - 1.03 [facility] Urobilinogen, UA 0.2 0.2 - 12 mg/dL [facility] [employer] Alginate AGon 08-30 Applied to abdominal wound in clinic today. MANUALLY TRANSCRIBED RESULTS [employer] AGOrdered By: Brianna Dougherty on 08-30-2024 [facility] Iodoform packing stripon Applied in clinic today to abdominal wound MANUALLY TRANSCRIBED RESULTS [facility] [employer] Alginate AGon 08-25 Applied to abdominal wound in clinic today. MANUALLY TRANSCRIBED RESULTS [facility] [employer] Alginate AGon 08-24 Applied to wound in clinic today. MANUALLY TRANSCRIBED RESULTS [employer] AGOrdered By: Daja Farah on 08-24-2024 [facility] Iodoform packing stripon Packed in abdominal wound in clinic today. MANUALLY TRANSCRIBED RESULTS [facility] Iodoform packing stripon Applied to wound in clinic today. MANUALLY TRANSCRIBED RESULTS [facility] Iodoform packing stripon Applied to abdominal wound in clinic today. MANUALLY TRANSCRIBED RESULTS [facility] Iodoform packing stripon Applied to abdominal wound in clinic today. MANUALLY TRANSCRIBED RESULTS [facility] CBC AND AUTO DIFFon 08-15-20 24 ABSOLUTE BASOPHIL 0.1 X10E9/L Normal 0.0-0.2 [facility] Comment on above: Performed By: #### C ZEE, CMP, 56610-4 #### [facility] ([id number]) [address], [address] [place] [address] ABSOLUTE NEUTROPHIL 7.8 X10E9/L High 1.5-6.6 [facility] Comment on above: Performed By: #### C BCA, CMP, 69123-3 #### [facility] ([id number]) [address], [address] [place] [address] Basophils/100 WBC (Bld) 0.6 % Normal P [facility] Comment on above: Performed By: #### C ZEE CMP, 15496-7 #### [facility] ([id number]) [address], [address] [place] [address] Eosinophils (Bld) [#/Vol] 0.1 10*3/uL Normal 0.0-0.4 [facility] Comment on above: Performed By: #### Kelly KOCH, CMP, 87369-2 #### [facility] ([id number]) [address] [place] [address] Eosinophils/100 WBC (Bld) 1.3 % Normal [facility] Comment on above: Performed By: #### Kelly KOCH CMP, 64529-7 #### [facility] ([id number]) [address] [place] [address] Erythrocyte distribution width (RBC) [Ratio] 14.4 % Normal 11.5-15.0 [facility] Comment on above: Performed By: #### Kelly KOCH, CMP, 89684-2 #### [facility] ([id number]) [address] [place] [address] Hematocrit (Bld) [Volume fraction] 34.4 % Low 35-47 [facility] Comment on above: Performed By: #### Kelly KOCH CMP, 47364-2 #### [facility] ([id number]) [address], [address] [place] [address] Hemoglobin (Bld) [Mass/Vol] 11.3 g/dL Low 11.7-15.5 [facility] Comment on above: Performed By: #### Kelly KOCH, CMP, 16287-9 #### [facility] ([id number]) [address], [address] [place] [address] Lymphocytes (Bld) [#/Vol] 2.2 10*3/uL Normal 1.0-3.5 [facility] Comment on above: Performed By: #### Kelly KOCH CMP, 65102-0 #### [facility] ([id number]) [address], [address] [place] [address] Lymphocytes/100 WBC (Bld) 19.9 % Normal [facility] Comment on above: Performed By: #### Kelly KOCH CMP, 56791-7 #### [facility] ([id number]) [address], [facility] [address] [place] [address] MCH (RBC) [Entitic mass] 29.1 pg Normal 27-34 [facility] Comment on above: Performed By: #### Kelly KOCH CMP, 59299-7 #### [facility] ([id number]) [address] [place] [address] MCHC (RBC) [Mass/Vol] 32.8 g/dL Normal 32-36 [facility] Comment on above: Performed By: #### Kelly KOCH CMP, 05763-9 #### [facility] ([id number]) [address] [place] [address] MCV (RBC) [Entitic vol] 89 fL Normal 80-100 [facility] Comment on above: Performed By: #### Kelly KOCH CMP, 83858-8 #### [facility] ([id number]) [address] [place] [address] Monocytes (Bld) [#/Vol] 0.7 10*3/uL Normal 0-0.9 [facility] Comment on above: Performed By: #### Kelly KOCH CMP, 51526-4 #### [facility] ([id number]) [address], [address] [place] [address] Monocytes/100 WBC (Bld) 6.6 % Normal P [facility] Comment on above: Performed By: #### C ZEE, CMP, 19384-5 #### [facility] ([id number]) [address] [place] [address] Neutrophils/100 WBC (Bld) 71.6 % Normal [facility] Comment on above: Performed By: #### Kelly KOCH, CMP, 44879-7 #### [facility] ([id number]) [address] [place] [address] Platelet mean volume (Bld) [Entitic vol] 6.4 fL Low 7-12 [facility] Comment on above: Performed By: #### C ZEE, CMP, 86163-7 #### [facility] ([id number]) [address], [address] [place] [address] Platelets (Bld) [#/Vol] 348 10*3/uL Normal 150-450 [facility] Comment on above: Performed By: #### Kelly KOCH, CMP, 67008-4 #### [facility] ([id number]) [address] [place] [address] RBC COUNT 3.89 X10E12/L Normal 3.80-5.20 [facility] Comment on above: Performed By: #### Kelly KOCH, CMP, 64304-8 #### [facility] ([id number]) [address] [place] [address] WBC (Bld) [#/Vol] 10.9 10*3/uL Normal 4.0-11.0 [facility] Comment on above: Performed By: #### C BCA, CMP, 84424-5 #### [facility] ([id number]) [address] [place] [address] BASIC METABOLIC PANLon 08-14 Anion gap [Moles/Vol] 8 mmol/L Normal 5-15 [facility] Comment on above: Performed By: #### C BCA, CMP, 72880-1 #### [facility] ([id number]) [address], [address] [place] [address] Calcium [Mass/Vol] 8.9 mg/dL Normal 8.5-10.5 [facility] Comment on above: Performed By: #### C BCA, CMP, 00654-5 #### [facility] ([id number]) [address] [place] [address] Chloride [Moles/Vol] 110 mmol/L High 98-109 [facility] Comment on above: Performed By: #### C ZEE, CMP, 72085-5 #### [facility] ([id number]) [address] [place] [address] CO2 [Moles/Vol] 23 mmol/L Normal 22-32 [facility] Comment on above: Performed By: #### C ZEE, DENTON, 24019-8 #### [facility] ([id number]) [address], [facility] [address] [place] [address] Creatinine [Mass/Vol] 0.54 mg/dL Normal 0.40-1.00 [facility] Comment on above: Result Comment: METH OD TRACEABLE TO IDMS STANDARD Performed By: #### C DENTON KOCH, 59639-3 #### [facility] ([id number]) [address] [place] [address] eGFR (CKD-EPI) NON-RACE DEPENDENT >90 Normal >59 [facility] Comment on above: Result Comment: Reported eGFR is based on the CKD-EPI 2020 equation that does not use a race coefficient. Performed By: #### C ZEE, CMP, 29854-6 #### [facility] ([id number]) [address] [place] [address] Glucose [Mass/Vol] 101 mg/dL High 65-99 [facility] Comment on above: Performed By: #### C ZEE CMP, 09812-5 #### [facility] ([id number]) [address] [place] [address] Potassium [Moles/Vol] 3.8 mmol/L Normal 3.5-5.0 [facility] Comment on above: Performed By: #### C BCA, CMP, 94755-4 #### [facility] ([id number]) [address] [place] [address] Sodium [Moles/Vol] 141 mmol/L Normal 134-146 [facility] Comment on above: Performed By: #### C ZEE, CMP, 57471-7 #### [facility] ([id number]) [address] [place] [address] Urea nitrogen [Mass/Vol] 10 mg/dL Normal 5-23 [facility] Comment on above: Performed By: #### C BCA, CMP, 93477-5 #### [facility] ([id number]) [address] [place] [address] CBC AND AUTO DIFFon 11-30-20 24 ABSOLUTE BASOPHIL 0.1 X10E9/L Normal 0.0-0.2 [facility] Comment on above: Performed By: #### C ZEE, CMP, 87102-2 #### [facility] ([id number]) [address] [place] [address] ABSOLUTE NEUTROPHIL 11.9 X10E9/L High 1.5-6.6 [facility] Comment on above: Performed By: #### C BCA, CMP, 89880-3 #### [facility] ([id number]) [address] [place] [address] Basophils/100 WBC (Bld) 0.5 % Normal [facility] Comment on above: Performed By: #### C BCA, CMP, 98959-0 #### [facility] ([id number]) [address] [place] [address] Eosinophils (Bld) [#/Vol] 0.1 10*3/uL Normal 0.0-0.4 [facility] Comment on above: Performed By: #### C DENTON KOCH, 17970-7 #### [facility] ([id number]) [address], [facility] [address] [place] [address] Eosinophils/100 WBC (Bld) 0.4 % Normal [facility] Comment on above: Performed By: #### Kelly KOCH CMP, 35499-3 #### [facility] ([id number]) [address] [address] [place] [address] Erythrocyte distribution width (RBC) [Ratio] 14.9 % Normal 11.5-15.0 [facility] Comment on above: Performed By: #### Kelly KOCH CMP, 22305-0 #### [facility] ([id number]) [address] [address] [place] [address] Hematocrit (Bld) [Volume fraction] 35.1 % Normal 35-47 [facility] Comment on above: Performed By: #### Kelly KOCH CMP, 90788-3 #### [facility] ([id number]) [address] [address] [place] [address] Hemoglobin (Bld) [Mass/Vol] 11.6 g/dL Low 11.7-15.5 [facility] Comment on above: Performed By: #### C DENTON KOCH, 15192-3 #### [facility] ([id number]) [address] [address] [place] [address] Lymphocytes (Bld) [#/Vol] 2.2 10*3/uL Normal 1.0-3.5 [facility] Comment on above: Performed By: #### Kelly KOCH CMP, 77674-8 #### [facility] ([id number]) [address] [place] [address] Lymphocytes/100 WBC (Bld) 14.9 % Normal [facility] Comment on above: Performed By: #### Kelly KOCH CMP, 14640-3 #### [facility] ([id number]) [address], [address] [place] [address] MCH (RBC) [Entitic mass] 29.7 pg Normal 27-34 [facility] Comment on above: Performed By: #### C ZEE, CMP, 68185-0 #### [facility] ([id number]) [address] [place] [address] MCHC (RBC) [Mass/Vol] 33.1 g/dL Normal 32-36 [facility] Comment on above: Performed By: #### Kelly KOCH CMP, 47618-1 #### [facility] ([id number]) [address] [place] [address] MCV (RBC) [Entitic vol] 90 fL Normal 80-100 [facility] Comment on above: Performed By: #### Kelly KOCH, CMP, 94838-3 #### [facility] ([id number]) [address] [place] [address] Monocytes (Bld) [#/Vol] 0.8 10*3/uL Normal 0-0.9 [facility] Comment on above: Performed By: #### Kelly KOCH, CMP, 28688-0 #### [facility] ([id number]) [address] [place] [address] Monocytes/100 WBC (Bld) 5.3 % Normal P [facility] Comment on above: Performed By: #### Kelly KOCH, CMP, 64222-9 #### [facility] ([id number]) [address] [place] [address] Neutrophils/100 WBC (Bld) 78.9 % Normal [facility] Comment on above: Performed By: #### C ZEE, CMP, 49209-6 #### [facility] ([id number]) [address] [place] [address] Platelet mean volume (Bld) [Entitic vol] 6.5 fL Low 7-12 [facility] Comment on above: Performed By: #### Kelly KOCH, CMP, 02876-5 #### [facility] ([id number]) [address] [place] [address] Platelets (Bld) [#/Vol] 363 10*3/uL Normal 150-450 [facility] Comment on above: Performed By: #### Kelly KOCH, CMP, 81523-6 #### [facility] ([id number]) [address] [place] [address] RBC COUNT 3.92 X10E12/L Normal 3.80-5.20 [facility] Comment on above: Performed By: #### Kelly KOCH CMP, 39817-2 #### [facility] ([id number]) [address] [place] [address] WBC (Bld) [#/Vol] 15.0 10*3/uL High 4.0-11.0 [facility] Comment on above: Performed By: #### Kelly KOCH CMP, 56815-2 #### [facility] ([id number]) [address] [place] [address] URINALYSISon 08-14-2024 Bilirubin Ql (U) Negative Normal NEG [facility] Comment on above: Performed By: #### C ZEE, CMP, 31236-3 #### [facility] ([id number]) [address] [place] [address] BLOOD/HGB Trace Abnormal NEG [facility] Comment on above: Performed By: #### Kelly KOCH CMP, 20668-6 #### [facility] ([id number]) [address] [place] [address] Color (U) YELLOW Normal YELLOW [facility] Comment on above: Performed By: #### C ZEE, CMP, 82909-4 #### [facility] ([id number]) [address] [place] [address] Glucose Ql (U) Negative Normal NEG [facility] Comment on above: Performed By: #### C ZEE, CMP, 57064-1 #### [facility] ([id number]) [address] [place] [address] Ketones Ql (U) Negative Normal NEG [facility] Comment on above: Performed By: #### Kelly KOCH CMP, 17175-1 #### [facility] ([id number]) [address] [place] [address] Leukocyte esterase Test strip Ql (U) Large Abnormal NEG [facility] Comment on above: Performed By: #### Kelly KOCH CMP, 66708-4 #### [facility] ([id number]) [address] [place] [address] MUCOUS PRESENT Abnormal NONE [facility] Comment on above: Performed By: #### Kelly KOCH CMP, 39149-9 #### [facility] ([id number]) [address] [place] [address] Nitrite Ql (U) Negative Normal NEG [facility] Comment on above: Performed By: #### C ZEE CMP, 40260-4 #### [facility] ([id number]) [address] [place] [address] pH (U) 6.0 [pH] Normal 5.0-8.5 [facility] Comment on above: Performed By: #### Kelly KOCH, CMP, 55004-5 #### [facility] ([id number]) [address], [address] [place] [address] Protein Ql (U) Trace Abnormal NEG [facility] Comment on above: Performed By: #### Kelly KOCH CMP, 50269-8 #### [facility] ([id number]) [address], [address] [place] [address] R.B.CELLS 5 /hpf Normal 0-5 [facility] Comment on above: Performed By: #### Kelly KOCH CMP, 54730-3 #### [facility] ([id number]) [address] [place] [address] Specific gravity (U) [Rel density] 1.020 Normal 1.003-1.035 [facility] Comment on above: Performed By: #### Kelly KOCH CMP, 91762-2 #### [facility] ([id number]) [address] [place] [address] SQUAMOUS EPITHELIUM 3 /hpf Normal 0-5 [facility] Comment on above: Performed By: #### Kelly KOCH CMP, 43274-4 #### [facility] ([id number]) [address] [place] [address] TURBIDITY CLEAR Normal CLEAR [facility] Comment on above: Performed By: #### Kelly KOCH CMP, 26618-6 #### [facility] ([id number]) [address] [place] [address] Urobilinogen (U) [Mass/Vol] mg/dL Normal <1.1 [facility] Comment on above: Performed By: #### Kelly KOCH CMP, 31866-5 #### [facility] ([id number]) [address] [place] [address] W.B.CELLS 75 /hpf High 0-5 [facility] Comment on above: Performed By: #### C DENTON KOCH, 61089-2 #### [facility] ([id number]) [address] [place] [address] URINE CULTUREon 08-14-2024 Bacteria identified Cx Nom (U) CULTURE RESULTS 50,000 to 100,000 ORGANISMS/mL ESCHERICHIA COLI 10,000 to 50,000 ORGANISMS/mL KLEBSIELLA PNEUMONIAE <10,000 ORGANISMS/mL STREPTOCOCCUS AGALACTIAE (GROUP B) [ S = SUSCEPTIBLE R = RESISTANT I = INTERMEDIATE S-DO = Susceptible-dose dependent NS = Non-suscceptible NO = No Interpretation ] Organism: ESCHERICHIA COLI Antibiotic Interpretation PRISCILLA Status AMPICILLIN S <=2 F AMP/SULBACTAM S <=2/1 F CEFAZOLIN S <=4 F CEFTRIAXONE S <=0.25 F CIPROFLOXACIN S <=0.25 F GENTAMICIN S <=1 F LEVOFLOXACIN S <=0.12 F NITROFURANTOIN S <=16 F PIPERACIL/TAZOBACTA M S <=4 F TOBRAMYCIN S <=1 F TRIMETH/SULFAMETHOX AZOLE S <=1/19 F [ S = SUSCEPTIBLE R = RESISTANT I = INTERMEDIATE S-DO = Susceptible-dose dependent NS = Non-suscceptible NO = No Interpretation ] Organism: KLEBSIELLA PNEUMONIAE Antibiotic Interpretation PRISCILLA Status AMPICILLIN R 16 F AMP/SULBACTAM S 4/2 F CEFAZOLIN S <=4 F CEFTRIAXONE S <=0.25 F CIPROFLOXACIN S <=0.25 F GENTAMICIN S <=1 F LEVOFLOXACIN S <=0.12 F NITROFURANTOIN R 128 F PIPERACIL/TAZOBACTA M S <=4 F TOBRAMYCIN S <=1 F TRIMETH/SULFAMETHOX AZOLE S <=1/19 F Susceptible [facility] Comment on above: Performed By: #### C DENTON KOCH, 82963-7 #### [facility] ([id number]) [address] [place] [address] BASIC METABOLIC PANLon 08-13 Anion gap [Moles/Vol] 13 mmol/L Normal 5-15 [facility] Comment on above: Performed By: #### C DENTON KOCH, 75005-3 #### [facility] ([id number]) [address], [address] [place] [address] Calcium [Mass/Vol] 8.7 mg/dL Normal 8.5-10.5 [facility] Comment on above: Performed By: #### C ZEE CMP, 60108-8 #### [facility] ([id number]) [address], [address] [place] [address] Chloride [Moles/Vol] 108 mmol/L Normal 98-109 [facility] Comment on above: Performed By: #### C ZEE, DENTON, 13770-2 #### [facility] ([id number]) [address], [address] [place] [address] CO2 [Moles/Vol] 22 mmol/L Normal 22-32 [facility] Comment on above: Performed By: #### C DENTON KOCH, 35471-2 #### [facility] ([id number]) [address], [address] [place] [address] Creatinine [Mass/Vol] 0.65 mg/dL Normal 0.40-1.00 [facility] Comment on above: Result Comment: METH OD TRACEABLE TO IDMS STANDARD Performed By: #### C DENTON KOCH, 22314-6 #### [facility] ([id number]) [address], [address] [place] [address] eGFR (CKD-EPI) NON-RACE DEPENDENT >90 Normal >59 [facility] Comment on above: Result Comment: Reported eGFR is based on the CKD-EPI 2021 equation that does not use a race coefficient. Performed By: #### C ZEE, CMP, 99236-1 #### [facility] ([id number]) [address], [address] [place] [address] Glucose [Mass/Vol] 89 mg/dL Normal 65-99 [facility] Comment on above: Performed By: #### C ZEE CMP, 76633-9 #### [facility] ([id number]) [address], [address] [place] [address] Potassium [Moles/Vol] 3.7 mmol/L Normal 3.5-5.0 [facility] Comment on above: Performed By: #### Kelly KOCH CMP, 98356-7 #### [facility] ([id number]) [address], [address] [place] [address] Sodium [Moles/Vol] 143 mmol/L Normal 134-146 [facility] Comment on above: Performed By: #### C DENTON KOCH, 25496-8 #### [facility] ([id number]) [address], [address] [place] [address] Urea nitrogen [Mass/Vol] 9 mg/dL Normal 5-23 [facility] Comment on above: Performed By: #### Kelly KOCH CMP, 56690-5 #### [facility] ([id number]) [address], [address] [place] [address] BLOOD CULTUREon 08-13-2024 Bacteria identified Aer cx Nom (Bld) CULTURE RESULTS NO GROWTH 5 DAYS Normal [facility] Bacteria identified Aer cx Nom (Bld) CULTURE RESULTS NO GROWTH 5 DAYS Normal [facility] CBC AND AUTO DIFFon 08-13-20 24 ABSOLUTE BASOPHIL 0.1 X10E9/L Normal 0.0-0.2 [facility] Comment on above: Performed By: #### C DENTON KOCH, 02031-6 #### [facility] ([id number]) [address], [address] [place] [address] ABSOLUTE NEUTROPHIL 13.5 X10E9/L High 1.5-6.6 [facility] Comment on above: Performed By: #### Kelly KOCH CMP, 89232-6 #### [facility] ([id number]) [address], [address] [place] [address] Basophils/100 WBC (Bld) 0.4 % Normal [facility] Comment on above: Performed By: #### C ZEE CMP, 61768-4 #### [facility] ([id number]) [address] [address] [place] [address] Eosinophils (Bld) [#/Vol] 0.1 10*3/uL Normal 0.0-0.4 [facility] Comment on above: Performed By: #### C ZEE, CMP, 21144-9 #### [facility] ([id number]) [address], [facility] [address] [place] [address] Eosinophils/100 WBC (Bld) 0.3 % Normal [facility] Comment on above: Performed By: #### Kelly KOCH, CMP, 64214-0 #### [facility] ([id number]) [address], [facility] [address] [place] [address] Erythrocyte distribution width (RBC) [Ratio] 14.7 % Normal 11.5-15.0 [facility] Comment on above: Performed By: #### Kelly KOCH CMP, 99121-8 #### [facility] ([id number]) [address], [facility] [address] [place] [address] Hematocrit (Bld) [Volume fraction] 35.7 % Normal 35-47 [facility] Comment on above: Performed By: #### Kelly KOCH CMP, 71166-9 #### [facility] ([id number]) [address], [facility] [address] [place] [address] Hemoglobin (Bld) [Mass/Vol] 11.9 g/dL Normal 11.7-15.5 [facility] Comment on above: Performed By: #### C ZEE, CMP, 36636-7 #### [facility] ([id number]) [address], [facility] [address] [place] [address] Lymphocytes (Bld) [#/Vol] 2.7 10*3/uL Normal 1.0-3.5 [facility] Comment on above: Performed By: #### C ZEE, CMP, 98698-0 #### [facility] ([id number]) [address], [address] [place] [address] Lymphocytes/100 WBC (Bld) 15.4 % Normal [facility] Comment on above: Performed By: #### C BCA, CMP, 83006-9 #### [facility] ([id number]) [address], [address] [place] [address] MCH (RBC) [Entitic mass] 29.3 pg Normal 27-34 [facility] Comment on above: Performed By: #### C ZEE, CMP, 16009-4 #### [facility] ([id number]) [address], [address] [place] [address] MCHC (RBC) [Mass/Vol] 33.3 g/dL Normal 32-36 [facility] Comment on above: Performed By: #### Kelly KOCH, CMP, 56620-1 #### [facility] ([id number]) [address], [address] [place] [address] MCV (RBC) [Entitic vol] 88 fL Normal 80-100 [facility] Comment on above: Performed By: #### Kelly KOCH, CMP, 09041-6 #### [facility] ([id number]) [address], [address] [place] [address] Monocytes (Bld) [#/Vol] 1.3 10*3/uL High 0-0.9 [facility] Comment on above: Performed By: #### C BCA, CMP, 18755-5 #### [facility] ([id number]) [address], [address] [place] [address] Monocytes/100 WBC (Bld) 7.2 % Normal [facility] Comment on above: Performed By: #### C BCA, CMP, 00320-5 #### [facility] ([id number]) [address] [address] Neutrophils/100 WBC (Bld) 76.7 % Normal [facility] Comment on above: Performed By: #### Kelly KOCH CMP, 79516-8 #### [facility] ([id number]) [address] [address] Platelet mean volume (Bld) [Entitic vol] 6.7 fL Low 7-12 [facility] Comment on above: Performed By: #### Kelly KOCH CMP, 81341-1 #### [facility] ([id number]) [address] [address] Platelets (Bld) [#/Vol] 330 10*3/uL Normal 150-450 [facility] Comment on above: Performed By: #### Kelly KOCH CMP, 11840-7 #### [facility] ([id number]) [address] [address] RBC COUNT 4.07 X10E12/L Normal 3.80-5.20 [facility] Comment on above: Performed By: #### Kelly KOCH, CMP, 74738-2 #### [facility] ([id number]) [address] [address] WBC (Bld) [#/Vol] 17.6 10*3/uL High 4.0-11.0 [facility] Comment on above: Performed By: #### Kelly KOCH, CMP, 88796-8 #### [facility] ([id number]) [address] [address] [address] ABDOMEN AND PELVIS W CONT on 08-13-2024 CT ABDOMEN AND PELVIS W CONT CT ABDOMEN AND PELVIS W CONT History: Acute abdominal pain post . Pain at incision site. Fever. Cellulitis. Exam/Technique: Abdomen and pelvis CT imaging is performed with IV contrast. Comparison: None Findings: There is no evidence of active pulmonary disease in the lung bases. The liver, spleen, pancreas, adrenal glands, kidneys, and gallbladder display no significant abnormalities. The abdominal aorta is of normal caliber throughout its length. No bowel dilatation or other gross abnormalities of the unopacified bowel loops demonstrated. There is no free intraperitoneal fluid or gas, and no gross abnormal fluid collections within the abdomen or pelvis. There is extensive streaky increased density in the abdominal fat of the low anterior abdominal wall. At the left lateral margin of this there is a small focal fluid collection that measures just 3.2 x 1.9 x 1.8 cm. Within the rectus sheath bilaterally there is fluid with fluid/fluid levels suggesting small hematomas There are no gross abnormalities of the unopacified urinary bladder, or ovaries suggested. Enlarged uterus, consistent with recent state IMPRESSION: * Streaky increased density in subcutaneous fat of the low anterior abdominal wall is consistent with the clinically reported cellulitis. * A small fluid collection at the left lateral aspect of this is nonspecific for a small incisional abscess or hematoma. * Small fluid collections in the adjacent rectus abdominous muscles bilaterally favor hematomas with abnormal fluid fluid levels. All CT scans at this facility use dose modulation, iterative reconstruction, and/or weight based dosing when appropriate to reduce radiation dose to as low as reasonably achievable. 1 Finalized by Ta Harris MD on 08/13/2024 11:42 AM Normal [facility] Lactate (P keven) [Moles/Vol]o n 08-13-2024 LACTATE W/REFLEX 0.7 mmol/L Normal 0.4-2.0 [facility] Comment on above: Result Comment: Result did not trigger repeat Lactate, re-order if needed. Performed By: #### C DENTON KOCH, 92223-0 #### [facility] ([id number]) [address], [address] [place] [address] SUPERFICIAL WOUND CULTUREon 08-13-2024 Bacteria identified Aer cx Nom (Wound) GRAM STAIN >25 WHITE BLOOD CELLS/LPF 0 to 1 SQUAMOUS EPITHELIAL CELLS/LPF MANY GRAM POSITIVE COCCI IN PAIRS, CHAINS AND CLUSTERS MODERATE GRAM NEGATIVE RODS CULTURE RESULTS FEW NORMAL SKIN RALPH Normal [facility] Comment on above: Performed By: #### C DENTON KOCH, 37966-5 #### [facility] ([id number]) [address], [address] [place] [address] CBC AND AUTO DIFFon 08-07-20 24 ABSOLUTE BASOPHIL 0.1 X10E9/L Normal 0.0-0.2 [facility] Comment on above: Performed By: #### C BCA, CMP, 59460-0 #### [facility] ([id number]) [address], [address] [place] [address] ABSOLUTE NEUTROPHIL 12.9 X10E9/L High 1.5-6.6 [facility] Comment on above: Performed By: #### C ZEE, CMP, 60777-0 #### [facility] ([id number]) [address], [address] [place] [address] Basophils/100 WBC (Bld) 0.5 % Normal [facility] Comment on above: Performed By: #### C BCA, CMP, 62625-9 #### [facility] ([id number]) [address], [address] [place] [address] Eosinophils (Bld) [#/Vol] 0.0 10*3/uL Normal 0.0-0.4 [facility] Comment on above: Performed By: #### C BCA, CMP, 98436-3 #### [facility] ([id number]) [address], [address] [place] [address] Eosinophils/100 WBC (Bld) 0.2 % Normal [facility] Comment on above: Performed By: #### C BCA, CMP, 24280-5 #### [facility] ([id number]) [address], [address] [place] [address] Erythrocyte distribution width (RBC) [Ratio] 15.0 % Normal 11.5-15.0 [facility] Comment on above: Performed By: #### C BCA, CMP, 47423-6 #### [facility] ([id number]) [address] [place] [address] Hematocrit (Bld) [Volume fraction] 27.7 % Low 35-47 [facility] Comment on above: Performed By: #### C BCA, CMP, 00910-8 #### [facility] ([id number]) [address], [facility] [address] [place] [address] Hemoglobin (Bld) [Mass/Vol] 9.7 g/dL Low 11.7-15.5 [facility] Comment on above: Performed By: #### C ZEE, CMP, 38127-5 #### [facility] ([id number]) [address] [address] [place] [address] Lymphocytes (Bld) [#/Vol] 4.5 10*3/uL High 1.0-3.5 [facility] Comment on above: Performed By: #### Kelly BCA, CMP, 09441-4 #### [facility] ([id number]) [address], [facility] [address] [place] [address] Lymphocytes/100 WBC (Bld) 23.9 % Normal [facility] Comment on above: Performed By: #### C BCA, CMP, 43080-5 #### [facility] ([id number]) [address], [facility] [address] [place] [address] MCH (RBC) [Entitic mass] 31.3 pg Normal 27-34 [facility] Comment on above: Performed By: #### C BCA, CMP, 20244-9 #### [facility] ([id number]) [address], [facility] [address] [place] [address] MCHC (RBC) [Mass/Vol] 35.1 g/dL Normal 32-36 [facility] Comment on above: Performed By: #### C BCA, CMP, 63378-9 #### [facility] ([id number]) [address] [place] [address] MCV (RBC) [Entitic vol] 89 fL Normal 80-100 [facility] Comment on above: Performed By: #### Kelly KOCH CMP, 06112-9 #### [facility] ([id number]) [address], [address] [place] [address] Monocytes (Bld) [#/Vol] 1.3 10*3/uL High 0-0.9 [facility] Comment on above: Performed By: #### Kelly KOCH, CMP, 11703-1 #### [facility] ([id number]) [address] [place] [address] Monocytes/100 WBC (Bld) 6.7 % Normal [facility] Comment on above: Performed By: #### Kelly KOCH, CMP, 02927-5 #### [facility] ([id number]) [address] [place] [address] Neutrophils/100 WBC (Bld) 68.7 % Normal [facility] Comment on above: Performed By: #### Kelly KOCH CMP, 36088-9 #### [facility] ([id number]) [address] [place] [address] Platelet mean volume (Bld) [Entitic vol] 7.3 fL Normal 7-12 [facility] Comment on above: Performed By: #### Kelly KOCH, CMP, 18532-8 #### [facility] ([id number]) [address], [address] [place] [address] Platelets (Bld) [#/Vol] 247 10*3/uL Normal 150-450 [facility] Comment on above: Performed By: #### Kelly KOCH, CMP, 56258-4 #### [facility] ([id number]) [address], [address] [place] [address] RBC COUNT 3.11 X10E12/L Low 3.80-5.20 [facility] Comment on above: Performed By: #### C BCA, CMP, 72445-9 #### [facility] ([id number]) [address] [place] [address] WBC (Bld) [#/Vol] 18.8 10*3/uL High 4.0-11.0 [facility] Comment on above: Performed By: #### C ZEE, CMP, 62661-7 #### [facility] ([id number]) [address] [place] [address] CBC AND AUTO DIFFon 08-06-20 24 ABSOLUTE BASOPHIL 0.1 X10E9/L Normal 0.0-0.2 [facility] Comment on above: Performed By: #### C ZEE, CMP, 27495-8 #### [facility] ([id number]) [address] [place] [address] ABSOLUTE NEUTROPHIL 14.8 X10E9/L High 1.5-6.6 [facility] Comment on above: Performed By: #### C ZEE, CMP, 93626-7 #### [facility] ([id number]) [address] [place] [address] Basophils/100 WBC (Bld) 0.5 % Normal [facility] Comment on above: Performed By: #### C BCA, CMP, 87203-4 #### [facility] ([id number]) [address] [place] [address] Eosinophils (Bld) [#/Vol] 0.0 10*3/uL Normal 0.0-0.4 [facility] Comment on above: Performed By: #### C BCA, CMP, 73682-2 #### [facility] ([id number]) [address], [address] [place] [address] Eosinophils/100 WBC (Bld) 0.1 % Normal [facility] Comment on above: Performed By: #### C ZEE CMP, 21647-9 #### [facility] ([id number]) [address], [address] [place] [address] Erythrocyte distribution width (RBC) [Ratio] 14.8 % Normal 11.5-15.0 [facility] Comment on above: Performed By: #### C ZEE CMP, 22774-8 #### [facility] ([id number]) [address], [facility] [address] [place] [address] Hematocrit (Bld) [Volume fraction] 28.3 % Low 35-47 [facility] Comment on above: Performed By: #### Kelly KOCH CMP, 46648-4 #### [facility] ([id number]) [address], [facility] [address] [place] [address] Hemoglobin (Bld) [Mass/Vol] 9.5 g/dL Low 11.7-15.5 [facility] Comment on above: Performed By: #### Kelly KOCH CMP, 80148-1 #### [facility] ([id number]) [address] [place] [address] Lymphocytes (Bld) [#/Vol] 2.8 10*3/uL Normal 1.0-3.5 [facility] Comment on above: Performed By: #### Kelly KOCH CMP, 45003-1 #### [facility] ([id number]) [address] [place] [address] Lymphocytes/100 WBC (Bld) 14.5 % Normal [facility] Comment on above: Performed By: #### Kelly KOCH CMP, 47383-3 #### [facility] ([id number]) [address], [address] [place] [address] MCH (RBC) [Entitic mass] 30.1 pg Normal 27-34 [facility] Comment on above: Performed By: #### C ZEE CMP, 16483-8 #### [facility] ([id number]) [address], [address] [place] [address] MCHC (RBC) [Mass/Vol] 33.6 g/dL Normal 32-36 [facility] Comment on above: Performed By: #### C BCA, CMP, 93293-4 #### [facility] ([id number]) [address], [address] [place] [address] MCV (RBC) [Entitic vol] 89 fL Normal 80-100 P [facility] Comment on above: Performed By: #### C BCA, CMP, 21753-1 #### [facility] ([id number]) [address], [address] [place] [address] Monocytes (Bld) [#/Vol] 1.4 10*3/uL High 0-0.9 [facility] Comment on above: Performed By: #### C BCA, CMP, 89626-3 #### [facility] ([id number]) [address] [place] [address] Monocytes/100 WBC (Bld) 7.2 % Normal [facility] Comment on above: Performed By: #### C BCA, CMP, 35125-5 #### [facility] ([id number]) [address], [address] [place] [address] Neutrophils/100 WBC (Bld) 77.7 % Normal [facility] Comment on above: Performed By: #### C BCA, CMP, 39461-3 #### [facility] ([id number]) [address] [place] [address] Platelet mean volume (Bld) [Entitic vol] 7.7 fL Normal 7-12 [facility] Comment on above: Performed By: #### C BCA, CMP, 74410-2 #### [facility] ([id number]) [address] [place] [address] Platelets (Bld) [#/Vol] 218 10*3/uL Normal 150-450 [facility] Comment on above: Performed By: #### Kelly KOCH CMP, 76145-3 #### [facility] ([id number]) [address] [place] [address] RBC COUNT 3.16 X10E12/L Low 3.80-5.20 [facility] Comment on above: Performed By: #### Kelly KOCH CMP, 59158-9 #### [facility] ([id number]) [address] [place] [address] WBC (Bld) [#/Vol] 19.0 10*3/uL High 4.0-11.0 [facility] Comment on above: Performed By: #### Kelly KOCH CMP, 80295-7 #### [facility] ([id number]) [address] [place] [address] CORD ARTERIAL GASon 08-05-20 24 DEJAN'S TEST Normal [facility] Comment on above: Performed By: #### Kelly KOCH CMP, 81944-9 #### [facility] ([id number]) [address] [place] [address] BASE,DEFICIT 8.0 MMOL/L High 0.0-2.0 [facility] Comment on above: Performed By: #### Kelly KOCH CMP, 77367-4 #### [facility] ([id number]) [address] [place] [address] HCO3 (Bld) [Moles/Vol] 20.1 mmol/L Low 22-26 [facility] Comment on above: Performed By: #### Kelly KOCH CMP, 51104-1 #### [facility] ([id number]) [address] [place] [address] INSP. O2 CONC. 21 % Normal [facility] Comment on above: Performed By: #### C ZEE CMP, 78445-9 #### [facility] ([id number]) [address] [place] [address] Oxygen (Bld) [Partial pressure] 38 mm[Hg] High 12-24 [facility] Comment on above: Performed By: #### Kelly KOCH, CMP, 36843-1 #### [facility] ([id number]) [address] [place] [address] Oxygen saturation in Blood 60.0 % High 7.1-39.5 [facility] Comment on above: Performed By: #### Kelly KOCH CMP, 83432-1 #### [facility] ([id number]) [address] [place] [address] OXYGEN SOURCE [employer] [facility] Comment on above: Performed By: #### Kelly KOCH, CMP, 47289-7 #### [facility] ([id number]) [address] [place] [address] PCO2 48.9 MMHG Normal 40.8-57.6 [facility] Comment on above: Performed By: #### Kelly KOCH CMP, 11596-9 #### [facility] ([id number]) [address] [place] [address] pH (Bld) 7.223 [pH] Low 7.24-7.30 [facility] Comment on above: Performed By: #### Kelly KOCH, CMP, 44305-4 #### [facility] ([id number]) [address], [address] [place] [address] SAMPLE SITE [employer] [facility] Comment on above: Performed By: #### Kelly KOCH, CMP, 41431-8 #### [facility] ([id number]) [address], [address] [place] [address] SAMPLE TYPE [employer] Normal [facility] Comment on above: Performed By: #### C DENTON KOCH, 67369-8 #### [facility] ([id number]) [address], [address] [place] [address] CORD VENOUS GASon 08-05-2024 BASE,DEFICIT 5.0 MMOL/L High 0.0-2.0 [facility] Comment on above: Performed By: #### Kelly KOCH CMP, 20398-7 #### [facility] ([id number]) [address], [address] [place] [address] HCO3 (Bld) [Moles/Vol] 19.3 mmol/L Low 20.0-24.0 [facility] Comment on above: Performed By: #### Kelly KOCH CMP, 18151-9 #### [facility] ([id number]) [address], [address] [place] [address] Oxygen (Bld) [Partial pressure] 25 mm[Hg] Normal 22-35 [facility] Comment on above: Performed By: #### Kelly KOCH CMP, 04891-1 #### [facility] ([id number]) [address], [address] [place] [address] Oxygen saturation in Blood 45.0 % Normal 32.5-66.3 [facility] Comment on above: Performed By: #### Kelly KOCH CMP, 40242-6 #### [facility] ([id number]) [address], [address] [place] [address] PCO2 32.8 MMHG Normal 32.6-43.8 [facility] Comment on above: Performed By: #### Kelly KOCH CMP, 54882-8 #### [facility] ([id number]) [address], [address] [place] [address] pH (Bld) 7.377 [pH] High 7.25-7.37 [facility] Comment on above: Performed By: #### C BCA, CMP, 90494-2 #### [facility] ([id number]) 54 [place] [address] [address] [place] [address] SAMPLE SITE VenCord Normal [facility] Comment on above: Performed By: #### C BCA, CMP, 68371-1 #### [facility] ([id number]) [address] [place] [address], [address] [place] [address] Glucose Glucometer (BldC) [M ass/Vol]on 08-05-2024 Glucose [Mass/Vol] 115 mg/dL High 65-99 [facility] Surgical Pathologyon 024 Surgical Pathology Normal [facility] Comment on above: Result Comment: [facility] [address] [place] [address] Surgical Pathology Consultation Patient Name:BARNEY OROSCO:1995 (Age: 29)Gender:FTaken:4Reported:09/09/2024hysician(s):Jakob Doty MD ([phone])Copy To:Jocelin Grissom M.D. Rec. #:[id number]: #[id number] Final Pathologic Diagnosis Placenta; removal: 365 g mature third-trimester placenta with subchorionic fibrin deposition and focal intervillous fibrin thrombus. Partial circummarginate insertion of the membranes. Unremarkable 3 vessels umbilical cord. Report Electronically Signed Out wak09/07/2024Chris Mckeon MD Interpretation performed at [facility], [address] [place] [id number], License number: [id number]. Clinical History Amniotic band, third trimester, fetus 1. Gross Description Received in formalin labeled BEAT, placenta : Single MEMBRANES: Placenta Sac Rupture (cm from margin): Cannot be determined due to fragmentation Color: collins-brown, semitranslucent Other Characteristics: Partially stripped amnion and extraplacental membranes. An 11 cm in length amniotic Web. Insertion Site: 25% circummarginate CORD: Appearance: Unremarkable Site of Insertion: Eccentric Length & Diameter (cm): 22 x 0.8 cm True Knots: No Number of vessels: Three GENERAL: Trimmed Weight (grams): 365 G Complete: No, significantly fragmented Size 1 x Size 2 x Size 3 (cm): 16.8 x 13 x 3.7 cm in aggregate Accessory Lobe(s): No PLACENTAL DISK: Color of Surface: Blue-grimes Sub-amniotic Cyst: No Amnion Nodosum: No Subchorionic Fibrin: No Appearance of Cut Surface: Red-brown, spongy and remarkable for a 1.8 cm yellow-collins, friable hemorrhagic nodule Maternal floor: Unremarkable Retroplacental hematoma: No Cassettes: A Rolled membrane, two sections of cord B-D Finish Rolls Operator sections of placenta (4, ss, [id number], m5) [facility]/4AO Specimen(s) Received Placenta Fee Codes(s): 1; [address]22 Glucose Glucometer (dC) [M ass/Vol]on 08-04-2024 Glucose [Mass/Vol] 166 mg/dL High 65-99 [facility] Glucose [Mass/Vol] 146 mg/dL High 65-99 [facility] Glucose [Mass/Vol] 106 mg/dL High 65-99 [facility] Glucose [Mass/Vol] 142 mg/dL High 65-99 [facility] Glucose [Mass/Vol] 89 mg/dL Normal 65-99 [facility] Glucose [Mass/Vol] 109 mg/dL High 65-99 [facility] CBC AND AUTO DIFFon 08-03-20 24 ABSOLUTE BASOPHIL 0.0 X10E9/L Normal 0.0-0.2 [facility] Comment on above: Performed By: #### C ZEE, [facility], 64643-5 #### [facility] ([id number]) [address], [address] [place] [address] ABSOLUTE NEUTROPHIL 9.0 X10E9/L High 1.5-6.6 [facility] Comment on above: Performed By: #### C BCA, CMP, 02743-8 #### [facility] ([id number]) [address], [address] [place] [address] Basophils/100 WBC (Bld) 0.3 % Normal [facility] Comment on above: Performed By: #### C BCA, CMP, 53563-1 #### [facility] ([id number]) [address], [address] [place] [address] Eosinophils (Bld) [#/Vol] 0.1 10*3/uL Normal 0.0-0.4 [facility] Comment on above: Performed By: #### C BCA, CMP, 04776-1 #### [facility] ([id number]) [address], [address] [place] [address] Eosinophils/100 WBC (Bld) 0.6 % Normal [facility] Comment on above: Performed By: #### C BCA, CMP, 21337-9 #### [facility] ([id number]) [address], [address] [place] [address] Erythrocyte distribution width (RBC) [Ratio] 14.5 % Normal 11.5-15.0 [facility] Comment on above: Performed By: #### C ZEE, CMP, 01063-1 #### [facility] ([id number]) [address], [address] [place] [address] Hematocrit (Bld) [Volume fraction] 34.9 % Low 35-47 [facility] Comment on above: Performed By: #### C BCA, CMP, 29824-2 #### [facility] ([id number]) [address], [address] [place] [address] Hemoglobin (Bld) [Mass/Vol] 11.8 g/dL Normal 11.7-15.5 [facility] Comment on above: Performed By: #### C BCA, CMP, 93916-6 #### [facility] ([id number]) [address], [address] [place] [address] Lymphocytes (Bld) [#/Vol] 3.3 10*3/uL Normal 1.0-3.5 [facility] Comment on above: Performed By: #### C BCA, CMP, 87240-3 #### [facility] ([id number]) [address], [address] [place] [address] Lymphocytes/100 WBC (Bld) 24.7 % Normal [facility] Comment on above: Performed By: #### Kelly KOCH, CMP, 00948-5 #### [facility] ([id number]) [address], [facility] [address] [place] [address] MCH (RBC) [Entitic mass] 29.6 pg Normal 27-34 [facility] Comment on above: Performed By: #### Kelly BCA, CMP, 71390-3 #### [facility] ([id number]) [address], [address] [place] [address] MCHC (RBC) [Mass/Vol] 33.8 g/dL Normal 32-36 [facility] Comment on above: Performed By: #### Kelly BCA, CMP, 75249-3 #### [facility] ([id number]) [address], [address] [place] [address] MCV (RBC) [Entitic vol] 88 fL Normal 80-100 [facility] Comment on above: Performed By: #### C BCA, CMP, 51551-9 #### [facility] ([id number]) [address], [facility] [address] [place] [address] Monocytes (Bld) [#/Vol] 0.8 10*3/uL Normal 0-0.9 [facility] Comment on above: Performed By: #### C BCA, CMP, 95748-1 #### [facility] ([id number]) [address], [address] [place] [address] Monocytes/100 WBC (Bld) 6.1 % Normal [facility] Comment on above: Performed By: #### C ZEE, CMP, 42237-2 #### [facility] ([id number]) [address], [address] [place] [address] Neutrophils/100 WBC (Bld) 68.3 % Normal [facility] Comment on above: Performed By: #### C ZEE, CMP, 63978-0 #### [facility] ([id number]) [address], [address] [place] [address] Platelet mean volume (Bld) [Entitic vol] 7.7 fL Normal 7-12 [facility] Comment on above: Performed By: #### Kelly KOCH, CMP, 09901-7 #### [facility] ([id number]) [address], [address] [place] [address] Platelets (Bld) [#/Vol] 260 10*3/uL Normal 150-450 [facility] Comment on above: Performed By: #### C ZEE, CMP, 51617-1 #### [facility] ([id number]) [address], [address] [place] [address] RBC COUNT 3.98 X10E12/L Normal 3.80-5.20 [facility] Comment on above: Performed By: #### C ZEE, CMP, 63226-7 #### [facility] ([id number]) [address], [address] [place] [address] WBC (Bld) [#/Vol] 13.2 10*3/uL High 4.0-11.0 [facility] Comment on above: Performed By: #### C BCA, CMP, 86103-9 #### [facility] ([id number]) [address], [address] [place] [address] COMPREHENSIVE METABOLIC PANE Tolu 08-03-2024 Albumin [Mass/Vol] 3.1 g/dL Low 3.2-5.3 [facility] Comment on above: Performed By: #### C BCA, CMP, 51827-5 #### [facility] ([id number]) [address], [address] [place] [address] ALP [Catalytic activity/Vol] 82 U/L Normal 39-130 [facility] Comment on above: Performed By: #### C BCA, CMP, 38508-3 #### [facility] ([id number]) [address], [address] [place] [address] ALT [Catalytic activity/Vol] 10 U/L Normal 0-31 [facility] Comment on above: Performed By: #### C BCA, CMP, 70136-4 #### [facility] ([id number]) [address], [address] [place] [address] Anion gap [Moles/Vol] 11 mmol/L Normal 5-15 [facility] Comment on above: Performed By: #### C BCA, CMP, 39066-9 #### [facility] ([id number]) [address], [address] [place] [address] AST [Catalytic activity/Vol] 13 U/L Normal 0-41 [facility] Comment on above: Performed By: #### C BCA, CMP, 96312-0 #### [facility] ([id number]) [address], [address] [place] [address] Bilirubin [Mass/Vol] 0.2 mg/dL Low 0.3-1.2 [facility] Comment on above: Performed By: #### C BCA, CMP, 24396-9 #### [facility] ([id number]) [address], [address] [place] [address] Calcium [Mass/Vol] 8.4 mg/dL Low 8.5-10.5 [facility] Comment on above: Performed By: #### C DENTON KOCH, 11689-1 #### [facility] ([id number]) [address], [address] [place] [address] Chloride [Moles/Vol] 108 mmol/L Normal 98-109 [facility] Comment on above: Performed By: #### C DENTON KOCH, 36109-5 #### [facility] ([id number]) [address], [address] [place] [address] CO2 [Moles/Vol] 20 mmol/L Low 22-32 [facility] Comment on above: Performed By: #### C DENTON KOCH, 74178-1 #### [facility] ([id number]) [address], [address] [place] [address] Creatinine [Mass/Vol] 0.53 mg/dL Normal 0.40-1.00 [facility] Comment on above: Result Comment: METH OD TRACEABLE TO IDMS STANDARD Performed By: #### C DENTON KOCH, 46539-8 #### [facility] ([id number]) [address], [address] [place] [address] eGFR (CKD-EPI) NON-RACE DEPENDENT >90 Normal >59 [facility] Comment on above: Result Comment: Reported eGFR is based on the CKD-EPI 2020 equation that does not use a race coefficient. Performed By: #### C DENTON KOCH, 60790-8 #### [facility] ([id number]) [address], [address] [place] [address] Glucose [Mass/Vol] 128 mg/dL High 65-99 [facility] Comment on above: Performed By: #### C DENTON KOCH, 62662-4 #### [facility] ([id number]) [address], [address] [place] [address] Potassium [Moles/Vol] 3.8 mmol/L Normal 3.5-5.0 [facility] Comment on above: Performed By: #### C BCA, CMP, 46840-9 #### [facility] ([id number]) [address], [address] [place] [address] Protein [Mass/Vol] 6.0 g/dL Normal 6.0-8.0 [facility] Comment on above: Performed By: #### C BCA, CMP, 67057-9 #### [facility] ([id number]) [address], [address] [place] [address] Sodium [Moles/Vol] 139 mmol/L Normal 134-146 [facility] Comment on above: Performed By: #### C BCA, CMP, 60366-5 #### [facility] ([id number]) [address], [address] [place] [address] Urea nitrogen [Mass/Vol] 9 mg/dL Normal 5-23 [facility] Comment on above: Performed By: #### C BCA, [facility], 96236-8 #### [facility] ([id number]) [address], [address] [place] [address] DRUG SCREEN, URINEon 024 AMPHETAMINE/METHAMP Negative Normal NEG [facility] Comment on above: Result Comment: AMPH /METH screening cut off = 1000 ng/mL Performed By: #### D LEE #### [facility] ([id number]) [address], [address] [place] [address] BARBITURATES Negative Normal NEG [facility] Comment on above: Result Comment: Joan iturates screening cut off value = 200 ng/mL Performed By: #### D LEE #### [facility] ([id number]) [address], [address] [place] [address] BENZODIAZEPINES Negative Normal NEG [facility] Comment on above: Result Comment: Herman odiazepines screening cut off value = 200 ng/mL Performed By: #### D LEE #### [facility] ([id number]) [address], [address] [place] [address] CANNABINOIDS Negative Normal NEG [facility] Comment on above: Result Comment: Ashley abinoids/THC screening cut off value = 50 ng/mL Performed By: #### D LEE #### [facility] ([id number]) [address], [address] [place] [address] COCAINE METABOLITE Negative Normal NEG [facility] Comment on above: Result Comment: Coca ine screening cut off value = 300 ng/mL Performed By: #### D LEE #### [facility] ([id number]) [address], [address] [place] [address] ECSTASY Negative Normal [facility] Comment on above: Result Comment: Ecst asy screening cut off value = 500 ng/mL This report is intended for use in clinical monitoring or management of patients. Performed By: #### D LEE #### [facility] ([id number]) [address], [address] [place] [address] METHADONE Negative [facility] Comment on above: Result Comment: Meth adone screening cut off value = 300 ng/mL. Performed By: #### D LEE #### [facility] ([id number]) [address], [address] [place] [address] OPIATES Negative Normal NEG [facility] Comment on above: Result Comment: Opia jasmin screening cut off value = 300 ng/mL NOTE: This test is used for the detection of codeine, hydrocodone (>1000 ng/mL), morphine and hydromorphone (>900 ng/mL) in urine. Performed By: #### D LEE #### [facility] ([id number]) [address], [address] [place] [address] OXYCODONE Negative Normal NEG [facility] Comment on above: Result Comment: Oxyc odone screening cut off value = 300 ng/mL NOTE: This test is used for the detection of oxycodone and oxymorphone in urine. Performed By: #### D LEE #### [facility] ([id number]) [address] [facility], [address] [address] PHENCYCLIDINE Negative Normal NEG [facility] Comment on above: Result Comment: Phen cyclidine screening cut off value = 25 ng/mL Performed By: #### D LEE #### [facility] ([id number]) [address], [address] [address] Glucose Glucometer (BldC) [M ass/Vol]on 08-03-2024 Glucose [Mass/Vol] 106 mg/dL High 65-99 [facility] Glucose [Mass/Vol] 98 mg/dL Normal 65-99 [facility] T. pallidum IgG+IgM IA Ql (S )on 08-03-2024 Syphilis Total <0.2 Normal 0.0-0.8 [facility] Comment on above: Result Comment: NON REACTIVE No serologic evidence of infection to Treponema pallidum (syphilis). Repeat testing may be considered in patients with suspected acute or primary syphilis in 2 to 4 weeks. Performed By: #### C BCA, CMP, 10604-2 #### [facility] ([id number]) [address] [facility], [address] [address] Urinalysis macro (dipstick) panel (U)on 07-12-2024 Bilirubin, UA Negative Negative - 4(70) +++ mg/dL [facility] Blood, UA Negative Negative - 50 Aaron/mcL [facility] Clarity, UA Clear [facility] Color, UA Yellow [facility] Glucose, UA Negative Negative - 1999(110) ++++ mg/dL [facility] Interpretation and review of laboratory results Abnormal [facility] Ketones, UA Positive Negative - 160(16) ++++ mg/dL [facility] Comment on above: trace Leukocytes, UA Negative Negative - 500+++ Mikael/mcL [facility] Nitrite, UA Negative Negative - Positive [facility] pH, UA 6 5 - 9 [facility] Protein, UA Negative Negative - 1999(20) ++++ mg/dL [facility] Spec Grav, UA 1.025 1 - 1.03 [facility] Urobilinogen, UA 0.2 0.2 - 12 mg/dL [facility] Urinalysis macro (dipstick) panel (U)on 06-30-2024 Bilirubin, UA Negative Negative - 4(70) +++ mg/dL [facility] Blood, UA Negative Negative - 50 Aaron/mcL [facility] Clarity, UA Clear [facility] Color, UA Yellow [facility] Glucose, UA Negative Negative - 1999(110) ++++ mg/dL [facility] Interpretation and review of laboratory results Abnormal [facility] Ketones, UA Positive Negative - 160(16) ++++ mg/dL [facility] Leukocytes, UA Negative Negative - 500+++ Mikael/mcL [facility] Nitrite, UA Negative Negative - Positive [facility] pH, UA 6.5 5 - 9 [facility] Protein, UA Negative Negative - 1999(20) ++++ mg/dL [facility] Spec Grav, UA 1.03 1 - 1.03 [facility] Urobilinogen, UA 1.0 0.2 - 12 mg/dL [facility] GLUCOSE TOLERANCE 3 HOURon 1 GLUCOSE TOLERANCE 3 HOUR High mg/dL [facility] Comment on above: GLU FAST 93 (<95) Co l: 06/26/24 0657 GLU 1HR 131 (<180) Col: 06/26/24 0811 GLU 2HR 158H (<155) Col: 06/26/24 0905 GLU 3HR 109 (<140) Col: 06/26/24 1005 Interpretation and review of laboratory results Abnormal [facility] CLINISYNC [facility] ALL CBC WITH AUTO DIFFon BASOPHILS ABSOLUTE AUTO 0.1 [facility] Basophils/100 WBC (Bld) 0.4 % 0.2 - 2.0 % [facility] Eosinophils/100 WBC (Bld) 0.6 % Low 0.9 - 7.0 % [facility] Erythrocyte distribution width (RBC) [Ratio] 13.8 % 11.0 - 15.0 % [facility] Hematocrit (Bld) [Volume fraction] 37.6 % 36.0 - 48.0 % [facility] Hemoglobin (Bld) [Mass/Vol] 12.2 g/dL 12.0 - 16.0 g/dL [facility] IMMATURE GRANULOCYTES ABS AUTO 0.05 High [facility] Immature granulocytes/100 WBC (Bld) 0.4 % 0.0 - 0.5 % [facility] Interpretation and review of laboratory results Abnormal [facility] LYMPHOCYTES ABSOLUTE AUTO 3.1 [facility] Lymphocytes/100 WBC (Bld) 23.6 % 20.5 - 60.0 % [facility] MCH (RBC) [Entitic mass] 29.3 pg 26.7 - 34.0 pg [facility] MCHC (RBC) [Mass/Vol] 32.4 g/dL 29.9 - 35.2 g/dL [facility] MCV (RBC) [Entitic vol] 90.2 fL 81.0 - 99.0 fL [facility] MONOCYTES ABSOLUTE AUTO 0.6 [facility] Monocytes/100 WBC (Bld) 4.2 % 1.7 - 12.0 % [facility] NEUTROPHILS ABSOLUTE AUTO 9.4 High [facility] Neutrophils/100 WBC (Bld) 70.8 % 43.0 - 75.0 % [facility] Platelet mean volume (Bld) [Entitic vol] 9.0 fL Low 9.5 - 13.5 fL [facility] TBH EO # 0.1 [facility] TBH PLT 322 [facility] TB RBC 4.17 Low [facility] TBH WBC 13.3 High [facility] CLINISYNC [facility] Urinalysis macro (dipstick) panel (U)on 06-02-2024 Bilirubin, UA Negative Negative - 4(70) +++ mg/dL [facility] Blood, UA Negative Negative - 50 Aaron/mcL [facility] Clarity, UA Clear [facility] Color, UA Yellow [facility] Glucose, UA Negative Negative - 1999(110) ++++ mg/dL [facility] Interpretation and review of laboratory results Normal [facility] Ketones, UA Negative Negative - 160(16) ++++ mg/dL [facility] Leukocytes, UA Negative Negative - 500+++ Mikael/mcL [facility] Nitrite, UA Negative Negative - Positive [facility] pH, UA 6.0 5 - 9 [facility] Protein, UA Negative Negative - 1999(20) ++++ mg/dL [facility] Spec Grav, UA 1.010 1 - 1.03 [facility] Urobilinogen, UA 0.2 0.2 - 12 mg/dL [facility] Urinalysis macro (dipstick) panel (U)on 05-05-2024 Bilirubin, UA Negative Negative - 4(70) +++ mg/dL [facility] Blood, UA Negative Negative - 50 Aaron/mcL [facility] Clarity, UA Clear [facility] Color, UA Yellow [facility] Glucose, UA Negative Negative - 2000(110) ++++ mg/dL [facility] Interpretation and review of laboratory results Normal [facility] Ketones, UA Negative Negative - 160(16) ++++ mg/dL [facility] Leukocytes, UA Negative Negative - 500+++ Mikael/mcL [facility] Nitrite, UA Negative Negative - Positive [facility] pH, UA 5.5 5 - 9 [facility] Protein, UA Negative Negative - 2000(20) ++++ mg/dL [facility] Spec Grav, UA 1.020 1 - 1.03 [facility] Urobilinogen, UA 0.2 0.2 - 12 mg/dL [facility] Unlisted Lab Teston 03-02- 24 [facility] Glucose, Fastingon Glucose [Mass/Vol] 77 mg/dL 70 - 99 mg/dL [facility] Lipid Panelon 04-18-2022 Cholesterol [Mass/Vol] 194 [...] and calculated LDL are not interchangeable tests. Cholesterol.total/Claudine sterol in HDL [Mass ratio] 4.1 {ratio} NINF - 5 [facility] Triglyceride [Mass/Vol] 89 mg/dL NINF - 150 mg/dL [facility] Comment on above: Triglyceride Guidelines: <150 Desirable 150-199 Borderline 200-499 High >499 Very high Based on AHA Guidelines for fasting triglyceride, June 2012. ANDRÉS MARTINEZ Cuffed and Wanted Glucose, FastingOrdered By: Gunnar Palacios on 04-18-2021 Glucose [Mass/Vol] 85 mg/dL 70 - 99 mg/dL [facility] Phone: [employer] Phone: Lipid PanelOrdered By: Wesley Palacios on 04-18-2021 Cholesterol [Mass/Vol] 180 mg/dL <200 [facility] Phone: Comment on above: Cholesterol Guidelines: <200 Desirable 200-240 Borderline >240 Undesirable Cholesterol in HDL [Mass/Vol] 45 mg/dL >40 [facility] Phone: Comment on above: HDL Guidelines: <40 Undesirable 40-59 Borderline >59 Desirable Cholesterol in LDL [Mass/Vol] 113 mg/dL 0 - 130 mg/dL [facility] Phone: Comment on above: LDL Guidelines: <100 Desirable 100-129 Near to/above Desirable 130-159 Borderline >159 Undesirable Direct (measured) LDL and calculated LDL are not interchangeable tests. Cholesterol in VLDL [Mass/Vol] NOT REPORTED 1 - 30 mg/dL [facility] Phone: Cholesterol.total/Claudine sterol in HDL [Mass ratio] 4 {ratio} <5 [facility]: Triglyceride [Mass/Vol] 112 mg/dL <150 [facility] Phone: Comment on above: Triglyceride Guidelines: <150 Desirable 150-199 Borderline 200-499 High >499 Very high Based on AHA Guidelines for fasting triglyceride, June 2012. [employer] Phone: Glucose, Fastingon 9 Glucose [Mass/Vol] 106 mg/dL High 70 - 99 mg/dL [facility] [employer] Interpretation and review of laboratory results Abnormal [facility] [place] Insulin, Totalon 07-31-2019 INR Coag (Bld) [Relative time] [place] Comment on above: Fastin.6-24.9 30 min: 20-112 60 min: 29-88 90 min: 26-84 120 min: 22-79 Insulin 44.5 mU/L [place], [place] Insulin Comment NOT REPORTED [facility] [place] TSHon 07-31-2019 TSH Qn 2.26 m[IU]/L [place], [place] Vital Signs Date Time Vital Sign Value Performing Clinician Facility 04-12-2025 09:03-0400 Body mass index (BMI) [Ratio] 37.14 kg/m2 Sree Nolan DO Work Phone: [facility] 04-12-2025 09:03-0400 Body weight 98.16 kg Sree Nolan DO Work Phone: [facility] 04-12-2025 09:03-0400 Diastolic blood pressure 78 mm[Hg] Sree Nolan DO Work Phone: [facility] 04-12-2025 09:03-0400 Systolic blood pressure 116 mm[Hg] Sree Nolan DO Work Phone: [facility] 11-09-2024 09:18-0500 Body mass index (BMI) [Ratio] 34.87 kg/m2 Sree Nolan DO Work Phone: [facility] 11-09-2024 09:18-0500 Body weight 92.14 kg Sree Nolan DO Work Phone: [facility] 11-09-2024 09:18-0500 Diastolic blood pressure 70 mm[Hg] Sree Nolan DO Work Phone: [facility] 11-09-2024 09:18-0500 Systolic blood pressure 120 mm[Hg] Sree Nolan DO Work Phone: [facility] 09-28-2024 11:16-0500 Body mass index (BMI) [Ratio] 34.47 kg/m2 Deborah ELIZONDO Work Phone: [facility] 09-28-2024 11:16-0500 Body weight 91.08 kg Deborah ELIZONDO Work Phone: [facility] 09-28-2024 11:16-0500 Diastolic blood pressure 60 mm[Hg] Deborah ELIZONDO Work Phone: [facility] 09-28-2024 11:16-0500 Systolic blood pressure 100 mm[Hg] Deborah ELIZONDO Work Phone: [facility] 09-17-2024 08:51-0500 Body temperature 98.2 [degF] Renae Stafford ACOUSTICAL INSTALLER-GENERAL EDUCATION INSTRUCTOR Work Phone: [facility] 09-17-2024 08:51-0500 Diastolic blood pressure 64 mm[Hg] Renae Stafford ACOUSTICAL INSTALLER-GENERAL EDUCATION INSTRUCTOR Work Phone: [facility] 09-17-2024 08:51-0500 Heart rate 82 /min Renae Stafford ACOUSTICAL INSTALLER-GENERAL EDUCATION INSTRUCTOR Work Phone: [facility] 09-17-2024 08:51-0500 Systolic blood pressure 98 mm[Hg] Renae Stafford ACOUSTICAL INSTALLER-GENERAL EDUCATION INSTRUCTOR Work Phone: [facility] 09-10-2024 15:00-0500 Body temperature 97.9 [degF] Pmh 1 [facility] 09-10-2024 15:00-0500 Diastolic blood pressure 70 mm[Hg] Pmh 1 [facility] 09-10-2024 15:00-0500 Heart rate 80 /min Pmh 1 [facility] 09-10-2024 15:00-0500 Respiratory rate 16 /min Pmh 1 [facility] 09-10-2024 15:00-0500 Systolic blood pressure 100 mm[Hg] Pmh 1 [facility] 09-06-2024 08:13-0500 Body temperature 97 [degF] Renae Stafford ACOUSTICAL INSTALLER-GENERAL EDUCATION INSTRUCTOR Work Phone: [facility] 09-06-2024 08:13-0500 Diastolic blood pressure 67 mm[Hg] Renae Stafford ACOUSTICAL INSTALLER-GENERAL EDUCATION INSTRUCTOR Work Phone: [facility] 09-06-2024 08:13-0500 Heart rate 81 /min Renae Stafford ACOUSTICAL INSTALLER-GENERAL EDUCATION INSTRUCTOR Work Phone: [facility] 09-06-2024 08:13-0500 Respiratory rate 18 /min Renae Stafford ACOUSTICAL INSTALLER-GENERAL EDUCATION INSTRUCTOR Work Phone: [facility] 09-06-2024 08:13-0500 Systolic blood pressure 103 mm[Hg] Renae Stafford ACOUSTICAL INSTALLER-GENERAL EDUCATION INSTRUCTOR Work Phone: [facility] 09-03-2024 08:01-0500 Body temperature 96.49 [degF] Tth 1 [facility] [employer] [facility] 09-03-2024 08:01-0500 Diastolic blood pressure 64 mm[Hg] Tth 1 [facility] 09-03-2024 08:01-0500 Heart rate 75 /min Tth 1 [facility] 09-03-2024 08:01-0500 Respiratory rate 16 /min Tth 1 [facility] 09-03-2024 08:01-0500 Systolic blood pressure 91 mm[Hg] Tth 1 [facility] 08-30-2024 08:12-0500 Body temperature 97.3 [degF] Renae Stafford ACOUSTICAL INSTALLER-GENERAL EDUCATION INSTRUCTOR Work Phone: [facility] 08-30-2024 08:12-0500 Diastolic blood pressure 54 mm[Hg] Renae Stafford ACOUSTICAL INSTALLER-GENERAL EDUCATION INSTRUCTOR Work Phone: [facility] 08-30-2024 08:12-0500 Heart rate 74 /min Renae Stafford ACOUSTICAL INSTALLER-GENERAL EDUCATION INSTRUCTOR Work Phone: [facility] 08-30-2024 08:12-0500 Respiratory rate 16 /min Renae Stafford ACOUSTICAL INSTALLER-GENERAL EDUCATION INSTRUCTOR Work Phone: [facility] 08-30-2024 08:12-0500 Systolic blood pressure 90 mm[Hg] Renae Stafford ACOUSTICAL INSTALLER-GENERAL EDUCATION INSTRUCTOR Work Phone: [facility] 08-27-2024 08:15-0500 Body temperature 96.8 [degF] Tth 1 [facility] 08-27-2024 08:15-0500 Diastolic blood pressure 70 mm[Hg] Tth 1 [facility] 08-27-2024 08:15-0500 Heart rate 93 /min Tth 1 [facility] 08-27-2024 08:15-0500 Respiratory rate 18 /min Tth 1 [facility] 08-27-2024 08:15-0500 Systolic blood pressure 116 mm[Hg] Tth 1 [facility] 08-26-2024 08:12-0500 Body temperature 97.39 [degF] Tth 1 [facility] 08-26-2024 08:12-0500 Diastolic blood pressure 83 mm[Hg] Tth 1 [facility] 08-26-2024 08:12-0500 Heart rate 100 /min Tth 1 [facility] 08-26-2024 08:12-0500 Respiratory rate 18 /min Tth 1 [facility] 08-26-2024 08:12-0500 Systolic blood pressure 114 mm[Hg] Tth 1 [facility] 08-25-2024 09:31-0500 Body temperature 97.3 [degF] Tth 1 [facility] 08-25-2024 09:31-0500 Diastolic blood pressure 71 mm[Hg] Tth 1 [facility] 08-25-2024 09:31-0500 Heart rate 97 /min Tth 1 [facility] 08-25-2024 09:31-0500 Respiratory rate 18 /min Tth 1 [facility] 08-25-2024 09:31-0500 Systolic blood pressure 122 mm[Hg] Tth 1 [facility] 08-24-2024 07:00-0500 Body temperature 97.2 [degF] Renae GALINDO Work Phone: [facility] 08-24-2024 07:00-0500 Diastolic blood pressure 79 mm[Hg] Renae GALINDO Work Phone: [facility] 08-24-2024 07:00-0500 Heart rate 77 /min Renae GALINDO Work Phone: [facility] 08-24-2024 07:00-0500 Respiratory rate 18 /min Renae Stafford ACOUSTICAL INSTALLER-GENERAL EDUCATION INSTRUCTOR Work Phone: [facility] 08-24-2024 07:00-0500 Systolic blood pressure 127 mm[Hg] Renae Stafford ACOUSTICAL INSTALLER-GENERAL EDUCATION INSTRUCTOR Work Phone: [facility] 08-23-2024 08:05-0500 Body height 162.6 cm [facility] 08-23-2024 08:05-0500 Body mass index (BMI) [Ratio] 34.69 kg/m2 [facility] 08-23-2024 08:05-0500 Body temperature 98.2 [degF] [facility] Risk [facility] 08-23-2024 08:05-0500 Body weight 91.67 kg [facility] 08-23-2024 08:05-0500 Diastolic blood pressure 72 mm[Hg] [facility] 08-23-2024 08:05-0500 Systolic blood pressure 110 mm[Hg] [facility] 08-20-2024 08:15-0500 Body temperature 97 [degF] Tth 1 [facility] 08-20-2024 08:15-0500 Diastolic blood pressure 61 mm[Hg] Tth 1 [facility] 08-20-2024 08:15-0500 Heart rate 81 /min Tth 1 [facility] 08-20-2024 08:15-0500 Respiratory rate 16 /min Tth 1 [facility] 08-20-2024 08:15-0500 Systolic blood pressure 105 mm[Hg] Tth 1 [facility] 08-19-2024 08:01-0500 Body temperature 97.81 [degF] Tt 1 [facility] 08-19-2024 08:01-0500 Diastolic blood pressure 69 mm[Hg] Tth 1 [facility] 08-19-2024 08:01-0500 Heart rate 94 /min Tth 1 [facility] 08-19-2024 08:01-0500 Systolic blood pressure 105 mm[Hg] Tth 1 [facility] 08-18-2024 07:00-0500 Body temperature 98.1 [degF] Tth 1 [facility] 08-18-2024 07:00-0500 Diastolic blood pressure 81 mm[Hg] Tth 1 [facility] 08-18-2024 07:00-0500 Heart rate 104 /min Tth 1 [facility] 08-18-2024 07:00-0500 Respiratory rate 16 /min Tth 1 [facility] 08-18-2024 07:00-0500 Systolic blood pressure 139 mm[Hg] Tth 1 [facility] 08-17-2024 13:13-0500 Body temperature 97.81 [degF] Renae Stafford ACOUSTICAL INSTALLER-GENERAL EDUCATION INSTRUCTOR Work Phone: [facility] 08-17-2024 13:13-0500 Diastolic blood pressure 72 mm[Hg] Renae Stafford ACOUSTICAL INSTALLER-GENERAL EDUCATION INSTRUCTOR Work Phone: [facility] 08-17-2024 13:13-0500 Heart rate 88 /min Renae Stafford ACOUSTICAL INSTALLER-GENERAL EDUCATION INSTRUCTOR Work Phone: [facility] 08-17-2024 13:13-0500 Respiratory rate 16 /min Renae Stafford ACOUSTICAL INSTALLER-GENERAL EDUCATION INSTRUCTOR Work Phone: [facility] 08-17-2024 13:13-0500 Systolic blood pressure 130 mm[Hg] Renae Stafford ACOUSTICAL INSTALLER-GENERAL EDUCATION INSTRUCTOR Work Phone: [facility] 08-16-2024 08:12-0500 Body mass index (BMI) [Ratio] 35.26 kg/m2 [facility] 08-16-2024 08:12-0500 Body temperature 98.2 [degF] [facility] Risk [facility] 08-16-2024 08:12-0500 Body weight 93.17 kg [facility] Risk [facility] 08-16-2024 08:12-0500 Diastolic blood pressure 82 mm[Hg] [facility] 08-16-2024 08:12-0500 Systolic blood pressure 126 mm[Hg] [facility] 07-27-2024 14:48-0500 Body mass index (BMI) [Ratio] 37.56 kg/m2 Deborah Estephania PA Work Phone: [facility] 07-27-2024 14:48-0500 Body weight 99.25 kg Deborah [place] PA Work Phone: [facility] 07-27-2024 14:48-0500 Diastolic blood pressure 76 mm[Hg] Deborah Estephania PA Work Phone: [facility] 07-27-2024 14:48-0500 Systolic blood pressure 122 mm[Hg] Deborah Estephania PA Work Phone: [facility] 07-12-2024 14:56-0400 Body mass index (BMI) [Ratio] 37.51 kg/m2 Deborah Estephania PA Work Phone: [facility] 07-12-2024 14:56-0400 Body weight 99.11 kg Deborah Estephania PA Work Phone: [facility] 07-12-2024 14:56-0400 Diastolic blood pressure 80 mm[Hg] Deborah [place] PA Work Phone: [facility] 07-12-2024 14:56-0400 Systolic blood pressure 120 mm[Hg] Deborah [place] PA Work Phone: [facility] 06-30-2024 14:49-0400 Body mass index (BMI) [Ratio] 37.49 kg/m2 Deborah Estephania PA Work Phone: [facility] 06-30-2024 14:49-0400 Body weight 99.07 kg Deborah [place] PA Work Phone: [facility] 06-30-2024 14:49-0400 Diastolic blood pressure 78 mm[Hg] Deborah [place] PA Work Phone: [facility] 06-30-2024 14:49-0400 Systolic blood pressure 116 mm[Hg] Deborah Estephania PA Work Phone: [facility] 06-02-2024 15:48-0400 Body mass index (BMI) [Ratio] 36.41 kg/m2 Deborah [place] PA Work Phone: [facility] 06-02-2024 15:48-0400 Body weight 96.22 kg Deborah ELIZONDO Work Phone: [facility] 06-02-2024 15:48-0400 Diastolic blood pressure 74 mm[Hg] Deborah ELIZONDO Work Phone: [facility] 06-02-2024 15:48-0400 Systolic blood pressure 114 mm[Hg] Deborah ELIZONDO Work Phone: [facility] 05-05-2024 13:39-0400 Body mass index (BMI) [Ratio] 36.35 kg/m2 Sree Nolan DO Work Phone: [facility] 05-05-2024 13:39-0400 Body weight 96.05 kg Sree Nolan DO Work Phone: [facility] 05-05-2024 13:39-0400 Diastolic blood pressure 72 mm[Hg] Sree Nolan DO Work Phone: [facility] 05-05-2024 13:39-0400 Systolic blood pressure 110 mm[Hg] Sree Nolan DO Work Phone: [facility] 05-05-2024 10:54-0400 Diastolic blood pressure 73 mm[Hg] Ryan Morgan MD Work Phone: [facility] 05-05-2024 10:54-0400 Heart rate 79 /min Ryan Morgan MD Work Phone: [facility] 05-05-2024 10:54-0400 Systolic blood pressure 111 mm[Hg] Ryan Morgan MD Work Phone: [facility] 04-21-2024 09:00-0400 Body mass index (BMI) [Ratio] 36.12 kg/m2 Ryan Morgan MD Work Phone: [facility] 04-21-2024 09:00-0400 Body weight 95.44 kg Ryan Morgan MD Work Phone: [facility] 04-21-2024 09:00-0400 Diastolic blood pressure 69 mm[Hg] Ryan Morgan MD Work Phone: [facility] 04-21-2024 09:00-0400 Heart rate 86 /min Ryan Morgan MD Work Phone: [facility] 04-21-2024 09:00-0400 Systolic blood pressure 120 mm[Hg] Ryan Morgan MD Work Phone: [facility] 04-07-2024 08:07-0400 Body height 162.6 cm Theodore Leonard MD Work Phone: [facility] 04-07-2024 08:07-0400 Body mass index (BMI) [Ratio] 36.1 kg/m2 Theodore Leonard MD Work Phone: [facility] 04-07-2024 08:07-0400 Body weight 95.4 kg Theodore Leonard MD Work Phone: [facility] 04-07-2024 08:07-0400 Diastolic blood pressure 76 mm[Hg] Theodore Leonard MD Work Phone: [facility] 04-07-2024 08:07-0400 Heart rate 95 /min Theodore Leonard MD Work Phone: [facility] 04-07-2024 08:07-0400 Systolic blood pressure 118 mm[Hg] Theodore Leonard MD Work Phone: [facility] Encounters Encounter Date Encounter Type Care Provider Facility Start: 04-28-2025 End: 04-28-2025 Clinisync Result Encounter Sree Nolan DO Work Phone: [facility] Unsolicited Start: 04-28-2025 End: 04-28-2025 Clinisync Result Encounter Sree Nolan DO Work Phone: [facility] Unsolicited Start: 04-25-2025 End: 04-25-2025 ambulatory SREE NOLAN Not Available Start: 04-25-2025 End: 04-25-2025 Patient encounter procedure Sree Nolan DO Work Phone: [facility] Comment on above: Encounter for IUD re moval Start: 04-12-2025 End: 04-12-2025 Bamboo flowsheet Sree Nolan DO Work Phone: [facility] Start: 04-12-2025 End: 04-14-2025 Bamboo flowsheet Sree Nolan DO Work Phone: [facility] Start: 04-12-2025 End: 04-14-2025 Clinisync Result Encounter Sree Nolan DO Work Phone: [facility] Unsolicited Start: 04-12-2025 End: 04-12-2025 Patient encounter procedure Sree Nolan DO Work Phone: [facility] Work Phone: Start: 04-12-2025 End: 04-12-2025 Periodic preventive med est patient 18-39 yrs Sree Nolan DO Work Phone: [facility] Comment on above: Well woman exam with routine gynecological exam Start: 04-12-2025 End: 04-12-2025 ambulatory SREE NOLAN Not Available Start: 01-06-2025 End: 01-06-2025 ambulatory [facility]LLA [facility] Start: 01-06-2025 End: 01-06-2025 Subsequent hospital visit by physician Annabella Delgadillo CNP Work Phone: [facility] Comment on above: Urinary urgency Start: 12-06-2024 End: 12-06-2024 ambulatory [facility] Start: 12-06-2024 Encounter for genera l adult medical examination without abnormal [facility] Start: 12-06-2024 End: 12-06-2024 Patient encounter status Annabella Delgadillo CNP Work Phone: [facility] Start: 12-06-2024 End: 12-06-2024 Subsequent hospital visit by physician Annabella Delgadillo CNP Work Phone: [facility] Comment on above: Wellness examination Start: 11-09-2024 End: 11-09-2024 Patient encounter procedure Sree Nolan DO Work Phone: [facility] Comment on above: Encounter for insert ion of Mirena IUD; Burning with urination Start: 11-09-2024 End: 11-09-2024 ambulatory SREE VALLEJOO Not Available Start: 09-28-2024 End: 09-28-2024 care visit Deborah ELIZONDO Work Phone: [facility] Comment on above: 6 weeks f ollow-up Start: 09-28-2024 End: 09-28-2024 ambulatory DEBORAH BEST Not Available Start: 09-17-2024 End: 09-17-2024 ambulatory RENAE STAFFORD [facility] Start: 09-17-2024 End: 09-17-2024 Office outpatient visit 10 minutes Jocelin Grissom MD Work Phone: [facility] Comment on above: Wound dehiscence, ce sarean, condition (Primary Dx) Start: 09-10-2024 End: 09-10-2024 ambulatory [facility] Comment on above: Wound infection foll owing section, (Primary Dx) Start: 09-06-2024 End: 09-06-2024 Office outpatient visit 10 minutes Jocelin Grissom MD Work Phone: [facility] Comment on above: Wound dehiscence, ce sarean, condition (Primary Dx) Start: 09-06-2024 End: 09-06-2024 Encounter RENAE STAFFORD [facility] 3E NICU Start: 09-05-2024 End: 09-05-2024 Encounter Not Pcp [facility] 3E NICU Start: 09-03-2024 End: 09-03-2024 Patient encounter procedure Jocelin Grissom MD Work Phone: [facility] Comment on above: Wound dehiscence, ce sarean, condition (Primary Dx) Start: 09-03-2024 End: 09-03-2024 Encounter NOT IN SYSTEM REF PROV [address] Start: 09-01-2024 End: 09-01-2024 ambulatory UNKNOWN PHYSICIAN [facility] Start: 08-31-2024 End: 08-31-2024 ambulatory UNKNOWN PHYSICIAN [facility] Start: 08-30-2024 End: 08-30-2024 Office outpatient visit 10 minutes Jocelin Grissom MD Work Phone: [facility] Comment on above: Wound dehiscence, ce sarean, condition (Primary Dx); Wound infection following section, Start: 08-30-2024 End: 08-30-2024 ambulatory REANE STAFFORD [facility] Start: 08-27-2024 End: 08-27-2024 Patient encounter procedure Jocelin Grissom MD Work Phone: [facility] Comment on above: Wound dehiscence, ce sarean, condition (Primary Dx) Start: 08-27-2024 End: 08-27-2024 ambulatory UNKNOWN PHYSICIAN [facility] Start: 08-26-2024 End: 08-26-2024 Patient encounter procedure Jocelin Grissom MD Work Phone: [facility] Comment on above: Wound dehiscence, ce sarean, condition (Primary Dx) Start: 08-26-2024 End: 08-26-2024 ambulatory UNKNOWN PHYSICIAN [facility] Start: 08-25-2024 End: 08-25-2024 Patient encounter procedure Jocelin Grissom MD Work Phone: [facility] Comment on above: Wound dehiscence, ce sarean, condition (Primary Dx) Start: 08-25-2024 End: 08-25-2024 ambulatory [facility] PHYSICIAN [facility] Start: 08-24-2024 End: 08-24-2024 Office outpatient visit 10 minutes Jocelin Grissom MD Work Phone: [facility] Comment on above: Wound dehiscence, ce sarean, condition (Primary Dx); Wound infection following section, Start: 08-24-2024 End: 08-24-2024 ambulatory RENAE STAFFORD [facility] Start: 08-23-2024 End: 08-23-2024 ambulatory JOAQUIN TEJADA [facility] Comment on above: Surgical wound infec tion (Primary Dx) Start: 08-21-2024 End: 08-21-2024 Encounter Not Pcp [facility] 3E NICU Start: 08-20-2024 End: 08-20-2024 Patient encounter procedure Jocelin Grissom MD Work Phone: [facility] Comment on above: Wound infection foll owing section, (Primary Dx) Start: 08-20-2024 End: 08-20-2024 ambulatory [facility] PHYSICIAN [facility] Start: 08-19-2024 End: 08-19-2024 Patient encounter procedure Jocelin Grissom MD Work Phone: [facility] Comment on above: Wound infection foll owing section, (Primary Dx) Start: 08-19-2024 End: 08-19-2024 ambulatory UNKNOWN PHYSICIAN [facility] Start: 08-18-2024 End: 08-18-2024 Patient encounter procedure Jocelin Grissom MD Work Phone: [facility] Comment on above: Wound infection foll owing section, (Primary Dx) Start: 08-18-2024 End: 08-18-2024 ambulatory UNKNOWN PHYSICIAN [facility] Start: 08-17-2024 End: 08-17-2024 Office outpatient new 20 minutes Jocelin Grissom MD Work Phone: [facility] Comment on above: Wound infection foll owing section, (Primary Dx); Wound dehiscence, , condition Start: 08-17-2024 End: 08-17-2024 ambulatory RENAE STAFFORD [facility] Start: 08-16-2024 End: 08-16-2024 Postop follow up visit related to original px [facility] [place] [facility] Comment on above: Wound dehiscence, ce sarean, condition (Primary Dx) Start: 08-16-2024 End: 08-16-2024 ambulatory JOSSELYN ARGUELLO [facility] Start: 08-15-2024 End: 08-15-2024 Encounter Not Alesha [address] NICU Start: 08-13-2024 End: 08-15-2024 Evaluation and management of inpatient JOSSELYN MALLOY [facility] Start: 08-12-2024 End: 08-12-[address] NICU Start: 08-10-2024 End: 08-10-[address] NICU Start: 08-09-2024 End: 08-09-2024 Telephone encounter Uma Moser RN [facility] Comment on above: Services Start: 08-07-2024 End: 08-07-2024 Evaluation and management of inpatient RYAN DOUGHERTY [facility] Start: 08-04-2024 End: 08-04-2024 Evaluation and management of inpatient MARIA DE JESUS Yary MAHAJAN [facility] Start: 08-03-2024 End: 08-07-2024 Evaluation and management of inpatient JOCELIN [facility] Start: 08-03-2024 End: 08-03-2024 Office outpatient visit 40 minutes Donna Alcantara MD Work Phone: [facility] Comment on above: 33 weeks gestation o f (Primary Dx); Poor growth affecting management of mother in third trimester, single or unspecified fetus; Separation of chorion and amnion membranes, antepartum Start: 08-03-2024 End: 08-03-2024 [facility] Start: 08-03-2024 End: 08-03-2024 Telephone encounter Shoshana Meyers RN [facility] Start: 07-28-2024 End: 07-28-2024 Telephone encounter Tomeka Nolasco RN [facility] Comment on above: History of pulmonary embolus (PE) (Primary Dx); Impaired glucose tolerance during ; Poor growth affecting management of mother in second trimester, single or unspecified fetus; Obesity affecting , antepartum, unspecified obesity type; growth restriction antepartum Start: 07-27-2024 End: 07-27-2024 flow sheet Deborah ELIZONDO Work Phone: [facility] Comment on above: 32 weeks gestation o f ; Third trimester ; growth restriction antepartum Start: 07-27-2024 End: 07-27-2024 ambulatory DEBORAH BEST Not Available Start: 07-27-2024 End: 07-27-2024 Bamboo flowsheet Deborah ELIZONDO Work Phone: [facility] Start: 07-27-2024 End: 07-27-2024 Bamboo flowsheet Deborah ELIZONDO Work Phone: [facility] Start: 07-22-2024 End: 07-22-2024 ambulatory [facility] Start: 07-16-2024 End: 07-16-2024 Office outpatient visit 40 minutes Theodore Leonard MD Work Phone: [facility]aternal- Medicine at [facility] Comment on above: History of pulmonary embolism (Primary Dx); 30 weeks gestation of ; Impaired glucose tolerance during Start: 07-16-2024 End: 07-16-2024 ambulatory THEODORE LEONARD [facility] Start: 07-12-2024 End: 07-12-2024 ambulatory DEBORAH BEST Not Available Start: 07-12-2024 End: 07-12-2024 flow sheet Deborah ELIZONDO Work Phone: [facility] Comment on above: Third trimester preg bni; 30 weeks gestation of ; Poor growth affecting management of mother in first trimester, single or unspecified fetus Start: 07-12-2024 End: 07-12-2024 Bamboo flowsheet Deborah ELIZONDO Work Phone: [facility] Start: 07-12-2024 End: 07-12-2024 Bamboo flowsheet Deborah ELIZONDO Work Phone: [facility] Start: 07-06-2024 End: 07-06-2024 ambulatory [facility] Start: 06-30-2024 End: 06-30-2024 ambulatory DEBORAH BEST Not Available Start: 06-30-2024 End: 06-30-2024 flow sheet Deborah ELIZONDO Work Phone: [facility] Comment on above: Second trimester pre gnancy; 28 weeks gestation of Start: 06-30-2024 End: 06-30-2024 Bamboo flowsheet Deborah ELIZONDO Work Phone: [facility] Start: 06-30-2024 End: 06-30-2024 Bamboo flowsheet Deborah ELIZONDO Work Phone: [facility] Start: 06-26-2024 End: 06-26-2024 Clinisync Result Encounter Sree Nolan DO Work Phone: [facility] External Department Unsolicited Start: 06-26-2024 End: 06-26-2024 Clinisync Result Encounter Sree Nolan DO Work Phone: [facility] External Department Unsolicited Start: 06-23-2024 End: 06-23-2024 ambulatory [facility] Start: 06-14-2024 End: 06-14-2024 Clinisync Result Encounter Sree Nolan DO Work Phone: [facility] External Department Unsolicited Start: 06-14-2024 End: 06-14-2024 Clinisync Result Encounter Sree Vallejoo DO Work Phone: [facility] External Department Unsolicited Start: 06-07-2024 End: 06-07-2024 ambulatory [facility] Start: 06-02-2024 End: 06-02-2024 ambulatory DEBORAH BEST Not Available Start: 06-02-2024 End: 06-02-2024 flow sheet Deborah ELIZONDO Work Phone: [facility] Comment on above: 24 weeks gestation o f ; growth restriction antepartum; Diabetes mellitus screening Start: 06-02-2024 End: 06-02-2024 Bamboo flowsheet Deborah ELIZONDO Work Phone: [facility] Start: 06-02-2024 End: 06-02-2024 Bamboo flowsheet Deborah ELIZONDO Work Phone: [facility] Start: 06-01-2024 End: 06-01-2024 Office outpatient visit 15 minutes Theodore Leonard MD Work Phone: [facility]- [facility] at [facility] Comment on above: 24 weeks gestation o f (Primary Dx); History of pulmonary embolus (PE); Poor growth affecting management of mother in second trimester, single or unspecified fetus; Obesity affecting , antepartum, unspecified obesity type Start: 06-01-2024 End: 06-01-2024 [facility] Start: 05-31-2024 End: 05-31-2024 Orders Only Kiley Zamora RN [facility] at [facility] Comment on above: Subchorionic hematom a in second trimester, single or unspecified fetus (Primary Dx); Circumvallate placenta during in second trimester, antepartum; Poor growth affecting management of mother in second trimester, single or unspecified fetus Start: 05-28-2024 End: 05-28-[facility]24 [facility] Start: 05-18-2024 End: 05-18-2024 ambulatory [facility] Start: 05-05-2024 End: 05-05-2024 Bamboo flowsheet Sree Nolan DO Work Phone: [facility] Start: 05-05-2024 End: 05-05-2024 Bamboo flowsheet Sree Nolan DO Work Phone: [facility] Start: 05-05-2024 End: 05-05-2024 Telephone encounter Shoshana Meyers RN [facility] Start: 05-05-2024 End: 05-05-2024 flow sheet Sree Nolan DO Work Phone: [facility] Comment on above: Second trimester pre gnancy Start: 05-05-2024 End: 05-05-2024 ambulatory SREE NOLAN Not Available Start: 05-05-2024 End: 05-05-2024 Office outpatient visit 25 minutes Ryan Morgan MD Work Phone: [facility] Comment on above: Subchorionic hematom a in second trimester, single or unspecified fetus (Primary Dx); Circumvallate placenta during in second trimester, antepartum; Poor growth affecting management of mother in second trimester, single or unspecified fetus; Pulmonary embolism affecting in first trimester Start: 05-05-2024 End: 05-05-2024 [facility] Start: 05-05-2024 End: 05-05-2024 ambulatory [facility] Start: 04-21-2024 End: 04-21-2024 Office outpatient visit 25 minutes Donna Alcantara MD Work Phone: [facility] at [facility] Comment on above: Subchorionic hematom a in second trimester, single or unspecified fetus (Primary Dx); Pulmonary embolism affecting in first trimester Start: 04-21-2024 End: 04-21-2024 [facility] Start: 04-07-2024 End: 04-07-2024 Office consultation new/estab patient 60 min Theodore Leonard MD Work Phone: [facility] at [facility] Comment on above: History of pulmonary embolus (PE) (Primary Dx); Subchorionic hematoma in second trimester, single or unspecified fetus; 16 weeks gestation of ; growth restriction antepartum Start: 04-07-2024 End: 04-07-20[facility] Start: 03-11-2024 End: 03-16-2024 Chart abstracting Theodore Leonard MD Work Phone: [facility] Start: 04-18-2022 End: 04-18-2022 Subsequent hospital visit [...] Date Procedure Procedure Detail Performing Clinician Start: 04-28-2025 US PELVIS TRANSVAGINAL Sree Nolan DO Work Phone: Start: 04-25-2025 IUD INSERTION Sree Letitia io DO Work Phone: Start: 04-12-2025 IGP,APTIMA HPV,AGE GDLN Sree Nolan DO Work Phone: Start: 01-06-2025 Urinalysis microscopic only Annabella Warren ACOUSTICAL INSTALLER - GENERAL EDUCATION INSTRUCTOR Work Phone: Start: 01-06-2025 Urnls dip stick/tabl et rgnt auto w/o microscopy Annabella Warren ACOUSTICAL INSTALLER - GENERAL EDUCATION INSTRUCTOR Work Phone: Start: 12-06-2024 End: 12-06-2024 Lipid panel Annabella Gallegoughn ACOUSTICAL INSTALLER - GENERAL EDUCATION INSTRUCTOR Work Phone: Start: 12-06-2024 Basic metabolic pane l calcium total Annabella Warren ACOUSTICAL INSTALLER - GENERAL EDUCATION INSTRUCTOR Work Phone: Start: 11-09-2024 IUD INSERTION Sree Letitia io DO Work Phone: Start: 11-09-2024 Urnls dip stick/tabl et rgnt non-auto w/o micrscp Sree Nolan DO Work Phone: Start: 08-30-2024 NURSING COMMUNICATION Jaycee Stafford ACOUSTICAL INSTALLER-GENERAL EDUCATION INSTRUCTOR Work Phone: Start: 08-26-2024 NURSING COMMUNICATION Jaycee An [place] ACOUSTICAL INSTALLER-GENERAL EDUCATION INSTRUCTOR Work Phone: Start: 08-25-2024 NURSING COMMUNICATION Jaycee Stafford ACOUSTICAL INSTALLER-GENERAL EDUCATION INSTRUCTOR Work Phone: Start: 08-24-2024 NURSING COMMUNICATION Jaycee Stafford ACOUSTICAL INSTALLER-GENERAL EDUCATION INSTRUCTOR Work Phone: Start: 08-23-2024 Adult depression scr eening assessment Chs Risk Start: 08-20-2024 NURSING COMMUNICATION Jaycee Stafford ACOUSTICAL INSTALLER-GENERAL EDUCATION INSTRUCTOR Work Phone: Start: 08-19-2024 NURSING COMMUNICATION Jaycee Stafford ACOUSTICAL INSTALLER-GENERAL EDUCATION INSTRUCTOR Work Phone: Start: 08-18-2024 NURSING COMMUNICATION Jaycee Stafford ACOUSTICAL INSTALLER-GENERAL EDUCATION INSTRUCTOR Work Phone: Start: 08-17-2024 NURSING COMMUNICATION M leigh ann Brunnerey ACOUSTICAL INSTALLER-GENERAL EDUCATION INSTRUCTOR Work Phone: Start: 08-17-2024 Adult depression scr eening assessment Not Pcp Start: 08-16-2024 care Care [facility] Start: 08-16-2024 Adult depression scr eening assessment Not Pcp Start: 08-13-2024 Adult depression scr eening assessment Not Pcp Start: 07-12-2024 Urnls dip stick/tabl et rgnt non-auto w/o micrscp Deborah ELIZONDO Work Phone: Start: 06-30-2024 Urnls dip stick/tabl et rgnt non-auto w/o micrscp Deborah ELIZONDO Work Phone: Start: 06-26-2024 GLUCOSE TOLERANCE 3 HOUR Sree Nolan DO Work Phone: Start: 06-14-2024 ALL CBC WITH AUTO DIFF Sree Nolan DO Work Phone: Start: 06-02-2024 Urnls dip stick/tabl et rgnt non-auto w/o micrscp Deborah ELIZONDO Work Phone: Start: 05-05-2024 Urnls dip stick/tabl et rgnt non-auto w/o micrscp Sree Nolan DO Work Phone: Start: 02-28-2024 UNLISTED LAB TEST Not I n System Ref Prov Start: 04-18-[address] gtt [...] Treatment Date Care Activity Detail Author Start: 11-01-2034 DTaP/Tdap/Td vaccine (8 - Td or Tdap) DTaP/Tdap/Td vaccine (8 - Td or Tdap) [facility] Start: 04-17-2026 End: 04-17-2026 Patient encounter procedure 04/17/2026 11:00 AM EDT Procedure Visit [facility] [address] [place] [address] Sree Francisco DO [address] [place] [address] [facility] Start: 10-31-2025 End: 10-31-2025 Patient encounter procedure 10/31/2025 8:00 AM EST Office Visit [facility] [address] [place] [address] [place] [address] Annabella Warren, ACOUSTICAL INSTALLER - GENERAL EDUCATION INSTRUCTOR [address] [facility] [address] [place] [address] wellness + zoloft med check . [facility] Comment on above: wellness + zoloft me d check . Start: 10-29-2025 Depression Screen Depression Screen [facility] Start: 09-17-2025 Tobacco Screening Tobacco Screening [facility] Start: 09-06-2025 Tobacco Screening Tobacco Screening [facility] Start: 08-30-2025 Tobacco Screening Tobacco Screening [facility] Start: 08-24-2025 Tobacco Screening Tobacco Screening [facility] Start: 08-23-2025 Adult BMI Screening Adult BMI Screen ing [facility] Start: 08-23-2025 Depression Screening Depression Scre ening [facility] Start: 08-23-2025 Tobacco Screening Tobacco Screening [facility] Start: 08-19-2025 Tobacco Screening Tobacco Screening [facility] Start: 08-17-2025 Depression Screening Depression Scre ening [facility] Start: 08-17-2025 Tobacco Screening Tobacco Screening [facility] Start: 08-16-2025 Adult BMI Screening Adult BMI Screen ing [facility] Start: 08-16-2025 Depression Screening Depression Scre ening [facility] Start: 08-16-2025 Tobacco Screening Tobacco Screening [facility] Start: 08-14-2025 Adult BMI Screening Adult BMI Screen ing [facility] Start: 08-14-2025 Tobacco Screening Tobacco Screening [facility] Start: 08-13-2025 Depression Screening Depression Scre ening [facility] Start: 08-07-2025 Tobacco Screening Tobacco Screening [facility] Start: 08-03-2025 Adult BMI Screening Adult BMI Screen ing [facility] Start: 08-03-2025 Tobacco Screening Tobacco Screening [facility] Start: 05-31-2025 End: 05-31-2025 US MFM with or without consult US MFM with or without consult Imaging Routine Subchorionic hematoma in second trimester, single or unspecified fetus Circumvallate placenta during in second trimester, antepartum Poor growth affecting management of mother in second trimester, single or unspecified fetus Expected: 05/31/2025 (Approximate), Expires: 05/31/2025 [facility] Work Phone: Comment on above: Expected: 05/31/2025 (Approximate), Expires: 05/31/2025 Start: 05-05-2025 Tobacco Screening Tobacco Screening [facility] Start: 04-25-2025 End: 04-25-2025 Patient encounter procedure 04/25/2025 3:30 PM EDT Procedure Visit [facility] [address] [facility] [place] [id number] Sree Francisco, [address] [place], [place] [id number] [facility] [place] [facility] Start: 04-25-2025 End: 10-26-2025 US Pelvis transvaginal US pelvis transvaginal Imaging Routine Encounter for IUD removal Expected: 04/25/2025, Expires: 10/26/2025 [facility] Work Phone: Comment on above: Expected: 04/25/2025 , Expires: 10/26/2025 Start: 04-21-2025 Adult BMI Screening Adult BMI Screen ing [facility] Start: 04-21-2025 Tobacco Screening Tobacco Screening [facility] Start: 04-12-2025 End: 04-12-2025 Patient encounter procedure [facility] Comment on above: Arrived Start: 04-07-2025 Adult BMI Screening Adult BMI Screen [facility] Start: 04-07-2025 Tobacco Screening Tobacco Screening [facility] Start: 01-30-2025 Screening for malign ant neoplasm of cervix Pap smear [facility] Start: 11-09-2024 End: 11-09-2024 Patient encounter procedure 11/09/2024 9:30 AM EST Procedure Visit [facility] [address] [facility] [place] [address] Sree Francisco DO [address] [facility] [place] [address] [facility] Start: 09-17-2024 End: 09-17-2024 Patient encounter procedure 09/17/2024 8:40 AM EST Office Visit [facility] [address] [place] [address] Jocelin Grissom MD [address] [place] [address] Renae Stafford, ACOUSTICAL INSTALLER-GENERAL EDUCATION INSTRUCTOR [address] [place] [address] [facility] Start: 09-10-2024 End: 09-10-2024 ambulatory 09/10/2024 3:30 PM EST Support Visit [facility] [address] [place] [address] [facility] Start: 09-09-2024 End: 09-09-2024 Patient encounter procedure 09/09/2024 8:30 AM EST Support Visit [facility] [address] [place] [address] Jocelin Grissom MD [address] [place] [address] [facility] Start: 09-06-2024 End: 09-06-2024 Patient encounter procedure 09/06/2024 8:00 AM EST Office Visit [facility] [address] [place] [address] Jocelin Grissom MD [address] [place] [address] Renae Stafford, ACOUSTICAL INSTALLER-GENERAL EDUCATION INSTRUCTOR [address] [place] [address] [facility] Start: 09-03-2024 End: 09-03-2024 Patient encounter procedure 09/03/2024 8:00 AM EST Support Visit [facility] [address] [place] [address] Jocelin Grissom MD [address] [place] [address] [facility] Start: 09-02-2024 End: 09-02-2024 Patient encounter procedure 09/02/2024 8:00 AM EST Support Visit [facility] [address] [place] [address] Jocelin Grissom MD [address] [place] [address] [facility] Start: 09-01-2024 End: 09-01-2024 Patient encounter procedure [facility] Start: 08-31-2024 End: 08-31-2024 Patient encounter procedure 08/31/2024 3:15 PM EST Appointment [facility] [address] [place] [address] [facility] Start: 08-31-2024 End: 08-31-2024 Patient encounter procedure 08/31/2024 9:30 AM EST Support Visit [facility] [address] [place] [address] Jocelin Grissom MD [address] [place] [address] [facility] Start: 08-30-2024 End: 08-30-2024 Patient encounter procedure 08/30/2024 8:00 AM EST Office Visit [facility] [address] [place] [address] Jocelin Grissom MD [address] [place] [address] Renae Stafford, ACOUSTICAL INSTALLER-GENERAL EDUCATION INSTRUCTOR [address] [place] [address] [facility] Start: 08-27-2024 End: 08-27-2024 Patient encounter procedure 08/27/2024 8:00 AM EST Support Visit [facility] [address] [facility] [place] [address] Jocelin Grissom MD [address] [place] [address] [facility] Start: 08-26-2024 End: 08-26-2024 Patient encounter procedure 08/26/2024 8:00 AM EST Support Visit [facility] [address] [facility] [place] [address] Jocelin Grissom MD [address] [place] [address] [facility] Start: 08-25-2024 End: 08-25-2024 Patient encounter procedure 08/25/2024 9:30 AM EST Support Visit [facility] [address] [place] [address] Jocelin Grissom MD [address] [place] [address] [facility] Start: 08-24-2024 End: 08-24-2024 Patient encounter procedure 08/24/2024 8:20 AM EST Office Visit [facility] [address] [place] [address] Jocelin Grissom MD [address] [place] [address] Renae Stafford, ACOUSTICAL INSTALLER-GENERAL EDUCATION INSTRUCTOR [address] [place] [address] [facility] Start: 08-23-2024 End: 08-23-2024 Telemedicine consultation with patient 08/23/2024 9:45 AM EST Telemedicine [facility] at [facility] [address] [place] [address] Theodore Leonard MD [address] [place] [address] [facility] Start: 08-23-2024 End: 08-23-2024 ambulatory 08/23/2024 8:15 AM EST Visit [facility] [address] [place] [address] [facility] Start: 08-23-2024 End: 08-23-2024 Patient encounter procedure [facility] Start: 08-20-2024 End: 08-20-2024 Patient encounter procedure [facility] Start: 08-19-2024 End: 08-19-2024 Telemedicine consultation with patient 08/19/2024 2:30 PM EST Telemedicine [facility] [address] [place] [address] Theodore Leonard MD [address] [place] [address] [facility] Start: 08-19-2024 End: 08-19-2024 Patient encounter procedure [facility] Start: 08-18-2024 End: 08-18-2024 Patient encounter procedure 08/18/2024 8:00 AM EST Office Visit [facility] [address] [place] [address] Jocelin Grissom MD [address] [place] [address] [facility] Start: 08-17-2024 End: 08-17-2024 Patient encounter procedure 08/17/2024 1:20 PM EST Office Visit [facility] - [facility] [address] [place] [phone] Jocelin Grissom MD [address] [place] [address] Renae Stafford, ACOUSTICAL INSTALLER-GENERAL EDUCATION INSTRUCTOR [address] [place] [address] [facility] Start: 08-16-2024 End: 08-16-2024 Patient encounter procedure 08/16/2024 8:15 AM EST Office Visit [facility] - [facility] Services [address] [place] [id number] [facility] Start: 08-04-2024 End: 08-04-2024 ambulatory 08/04/2024 9:30 AM EST Support Visit [facility] at [facility] [address] [place] [address] Theodore Leonard MD [address] [facility] 1st [place] [address] Lili Davis, RN [address] [facility] [address], [address] [place] [address] Marilu Muller, DIONI [address] [place] [address] [facility] Start: 08-03-2024 End: 08-03-2024 Patient encounter procedure 08/03/2024 3:00 PM EST Appointment [facility] [place] [address] [facility] [address] [place] [address] [facility] [place] Start: 07-27-2024 End: 07-27-2025 US.doppler Umbilical artery US umbilical artery doppler Imaging Routine growth restriction antepartum Expected: 07/27/2024 (Approximate), Expires: 07/27/2025 [facility] Work Phone: Comment on above: Expected: 07/27/2024 (Approximate), Expires: 07/27/2025 Start: 07-26-2024 End: 07-26-2024 Patient encounter procedure 07/26/2024 3:00 PM EST Routine [facility] [address] [facility] [place] [phone] Deborah Best, PA [address] [place] [address] [place], [place] [id number] [facility] Start: 07-22-2024 End: 07-22-2024 Patient encounter procedure 07/22/2024 10:30 AM EST Appointment [facility] [place] [address] [place] [address] [place] [address] [facility] [place] Start: 07-12-2024 End: 07-12-2024 Patient encounter procedure 07/12/2024 2:40 PM EDT Routine [facility] [address] [facility] [place] [address] Deborah Best, PA [address] [facility] [address] [place], [place] [id number] [facility] Start: 07-12-2024 End: 07-12-2025 [...] PM EDT Routine [facility] [address] [facility] [place] [address] Deborah Best PA [address] [facility] [address] [place], [place] [id number] [facility] Start: 06-29-2024 End: 06-29-2024 Patient encounter procedure 06/29/2024 12:30 PM EDT Appointment [facility] [place] [address] [place] [place] [address] [facility] [place] Start: 06-07-2024 End: 06-07-2024 Patient encounter procedure 06/07/2024 2:30 PM EDT Appointment [facility] [address] [facility] [address] [place] [phone] [facility] Start: 06-02-2024 End: 06-02-2024 Patient encounter procedure 06/02/2024 3:30 PM EDT Routine [facility] [address] [facility] [place] [phone] Deborah Best PA [address] [facility] [address] [place], [place] [id number] [facility] Start: 06-02-2024 End: 06-02-2025 CBC panel - Blood by Automated count CBC Lab Routine Diabetes mellitus screening Expected: 06/02/2024 (Approximate), Expires: 06/02/2025 [facility] Work Phone: Comment on above: Expected: 06/02/2024 (Approximate), Expires: 06/02/2025 Start: 06-02-2024 End: 06-02-2025 Measurement of glucose 1 hour after glucose challenge for glucose tolerance test Glucose tolerance, 1 hour Lab Routine Diabetes mellitus screening Expected: 06/02/2024 (Approximate), Expires: 06/02/2025 [facility] Comment on above: Expected: 06/02/2024 (Approximate), Expires: 06/02/2025 Start: 06-01-2024 End: 06-01-2024 Telemedicine consultation with patient 06/01/2024 8:00 AM EDT Telemedicine [facility] at [facility] [address] [place] [address] Theodore Leonard MD [address] [place] [address] [facility] Start: 05-28-2024 End: 05-28-2024 Patient encounter procedure 05/28/2024 11:00 AM EDT Appointment [facility] [address] [facility] [address] [facility] - [facility] Start: 05-18-2024 End: 05-18-2024 Patient encounter procedure 05/18/2024 3:15 PM EDT Appointment [facility] [address] [place] [address] [facility] Start: 05-16-2024 COVID-19 Vaccine ( season) COVID-19 Vaccine ( season) [facility] Start: 05-16-2024 Influenza vaccination Influenza Vacc ine [facility] Start: 05-06-2024 End: 05-06-2024 Telemedicine consultation with patient 05/06/2024 8:00 AM EDT Telemedicine [facility] at [facility] [address] [place] [address] Ryan Morgan MD [address] [place] [address] [facility] Start: 05-05-2024 End: 05-05-2024 Patient encounter procedure 05/05/2024 1:40 PM EDT Routine [facility] [address] [facility] [place] [id number] Sree Francisco DO [address] [place] [address] Arrived [facility] OB Comment on above: Arrived Start: 05-05-2024 End: 05-05-2024 Patient encounter procedure 05/05/2024 9:30 AM EDT Appointment [facility] [address] [place] [id number] [facility] Start: 04-21-2024 End: 04-21-2024 Patient encounter procedure [facility] Imaging Start: 04-07-2024 End: 04-07-2024 Patient encounter procedure 04/07/2024 8:45 AM EDT Office Visit M[facility]- Medicine at [facility] [address] [place] [id number] Theodore Leonard MD [address] [address] [facility] at [facility] Start: 04-07-2024 End: 04-07-2024 Patient encounter procedure 04/07/2024 7:30 AM EDT Appointment [facility] [address] [place] [id number] [facility] Start: 10-06-2023 DTaP,Tdap and Td Vaccines (7 - Td or Tdap) DTaP,Tdap and Td Vaccines (7 - Td or Tdap) [facility] Start: 10-06-2023 DTaP/Tdap/Td vaccine (7 - Td or Tdap) DTaP/Tdap/Td vaccine (7 - Td or Tdap) [facility] Start: 10-06-2023 DTaP/Tdap/Td vaccine (7 - Td) DTaP/Tdap/Td vaccine (7 - Td) [place], [place] Start: 02-05-2023 End: 02-05-2023 Patient encounter procedure 02/05/2023 Office Visit Obstetrics and Gynecology Sarah Horn PA-C [address] [place] [address] [facility] Part of [facility] Start: 05-16-2022 Influenza vaccination [facility] Start: 04-19-2022 End: 04-19-2022 Patient encounter procedure 04/19/2022 Office Visit Primary Care Gunnar Palacios MD [address] [place] [id number] [facility] Start: 04-16-2022 Depression Screen Depression Screen [facility] Start: 05-16-2021 Influenza vaccination Flu vaccine (# 1) [facility] Work Phone: Start: 08-03-2019 End: 08-03-2019 Office Visit 08/03/2019 Office Visit Obstetrics and Gynecology [facility] [employer] Start: 05-16-2019 Influenza vaccination Flu vaccine (# 1) [place], [place] Start: 04-02-2017 Chlamydia screen Chlamydia screen [place], [place] Start: 04-02-2017 Screening for Chlamy daniella trachomatis Chlamydia screen [facility] Start: 2017 Cervical cancer screen Cervical canc er screen [place], [place] Start: 2017 Screening for malign ant neoplasm of cervix [facility] Start: 2014 Adult BMI Follow Up Plan Adult BMI Follow Up Plan [facility] Start: 2014 Adult BMI Screening Adult BMI Screen ing [facility] Start: 2014 Hepatitis C screening Hepatitis C sc reen [facility] Start: 2011 HIV screen HIV screen [place], [place] Start: 2008 COVID-19 Vaccine (1) COVID-19 Vaccin e (1) [facility] Work Phone: Start: 2008 [facility] Start: 2008 Tobacco Screening Tobacco Screening [facility] Start: 2007 HPV vaccine (1 - 2-d ose series) HPV vaccine (1 - 2-dose series) [facility] Start: 2007 HPV vaccine (1 - Fem rahul 2-dose series) HPV vaccine (1 - Female 2-dose series) [place] Start: 2001 COVID-19 Vaccine (1) COVID-19 Vaccin e (1) [facility] Start: 1996 COVID-19 Vaccine (#1) COVID-19 Vacci ne (#1) [facility] Start: 1996 Hepatitis C screening Hepatitis C sc reen [facility] [employer] Work Phone: End: 04-07-2025 Anti cardiolipin AB IgG IgA IgM Anti cardiolipin AB IgG IgA IgM Lab Routine History of pulmonary embolus (PE) 1 Occurrences starting 04/07/2024 until 04/07/2025 [employer] Work Phone: Comment on above: 1 Occurrences starti ng 04/07/2024 until 04/07/2025 End: 07-16-2025 Anti cardiolipin AB IgG IgA IgM Anti cardiolipin AB IgG IgA IgM Lab Routine History of pulmonary embolism 30 weeks gestation of 1 Occurrences starting 07/16/2024 until 07/16/2025 [employer] Work Phone: Comment on above: 1 Occurrences starti ng 07/16/2024 until 07/16/2025 End: 04-07-2025 Anti thrombin 3 funct Anti thrombin 3 funct Lab Routine History of pulmonary embolus (PE) 1 Occurrences starting 04/07/2024 until 04/07/2025 [facility] Comment on above: 1 Occurrences starti ng 04/07/2024 until 04/07/2025 End: 07-16-2025 Anti thrombin 3 funct Anti thrombin 3 funct Lab Routine History of pulmonary embolism 30 weeks gestation of 1 Occurrences starting 07/16/2024 until 07/16/2025 [facility] Comment on above: 1 Occurrences starti ng 07/16/2024 until 07/16/2025 End: 04-07-2025 Beta-2 glycoprotein antibodies Beta-2 glycoprotein antibodies Lab Routine History of pulmonary embolus (PE) 1 Occurrences starting 04/07/2024 until 04/07/2025 [facility] Comment on above: 1 Occurrences starti ng 04/07/2024 until 04/07/2025 End: 01-06-2025 Culture, Urine [facility] Comment on above: Once for 1 Occurrenc es starting 01/06/2025 until 01/06/2025 End: 01-30-2022 Cytopathology procedure, preparation of smear, genital source PAP SMEAR Lab Routine Women's annual routine gynecological examination 1 Occurrences starting 01/30/2022 until 01/30/2022 [facility] Work Phone: Comment on above: 1 Occurrences starti ng 01/30/2022 until 01/30/2022 End: 04-07-2025 DRVVT DRVVT Lab Routine History of pulmonary embolus (PE) 1 Occurrences starting 04/07/2024 until 04/07/2025 [facility] Comment on above: 1 Occurrences starti ng 04/07/2024 until 04/07/2025 End: 04-07-2025 Prothrombin gene mutation Prothrombin gene mutation Lab Routine History of pulmonary embolus (PE) 1 Occurrences starting 04/07/2024 until 04/07/2025 [facility] Comment on above: 1 Occurrences starti ng 04/07/2024 until 04/07/2025 Immunizations Immunization Date Immunization Notes Care Provider Fa [facility] 11-01-2024 tetanus toxoid, redu linda diphtheria toxoid, and acellular pertussis vaccine, adsorbed Annabella Warren ACOUSTICAL INSTALLER - GENERAL EDUCATION INSTRUCTOR Work Phone: [facility] 08-12-2024 influenza virus vacc ine, unspecified formulation Not Pcp [facility] 06-15-2015 influenza virus vacc ine, whole virus Dipakkumar Palacios [facility] 06-15-2015 influenza virus vacc ine, unspecified formulation Theodore Leonard MD Work Phone: [facility] 10-06-2013 hepatitis A vaccine, adult dosage Not Pcp [facility] 10-06-2013 hepatitis A vaccine, unspecified formulation [facility] [place] 10-06-2013 tetanus toxoid, redu linda diphtheria toxoid, and acellular pertussis vaccine, adsorbed [facility] 05-25-2013 varicella virus vaccine [facility], [place] 02-25-2013 hepatitis A vaccine, adult dosage Not Pcp [facility] 02-25-2013 hepatitis A vaccine, unspecified formulation [facility] , [place] 02-25-2013 meningococcal polysaccharide (groups A, C, Y and W-135) diphtheria toxoid conjugate vaccine (MCV4P) [facility] 03-05-2001 diphtheria, tetanus toxoids and acellular pertussis vaccine [facility] 03-05-2001 measles, mumps and rubella virus vaccine [facility] 03-05-2001 poliovirus vaccine, inactivated [facility] 07-14-1997 diphtheria, tetanus toxoids and acellular pertussis vaccine [facility] 05-09-1997 measles, mumps and rubella virus vaccine [facility] 05-09-1997 varicella virus vaccine [facility] 1996 diphtheria, tetanus toxoids and acellular pertussis vaccine [facility] 1996 hepatitis B vaccine, unspecified formulation [facility] [place] 1996 poliovirus vaccine, inactivated [facility] 1996 diphtheria, tetanus toxoids and acellular pertussis vaccine [facility] 1996 haemophilus influenz ae type b vaccine, PRP-OMP conjugate [facility] 1996 poliovirus vaccine, inactivated [facility] 1996 diphtheria, tetanus toxoids and acellular pertussis vaccine [facility] 1996 haemophilus influenz ae type b vaccine, PRP-OMP conjugate [facility] 1996 poliovirus vaccine, inactivated [facility] 1996 haemophilus influenz ae type b vaccine, PRP-OMP conjugate [facility] 1996 hepatitis B vaccine, unspecified formulation [facility] [place] 1996 haemophilus influenz ae type b vaccine, PRP-OMP conjugate [facility] 1996 hepatitis B vaccine, unspecified formulation [facility] , [place] Payers Date Payer Category Payer [facility] [id number] 2024 [facility] [id number] .[id number] 2023 Managed Care Other (unspecified) 1.2.840.303358.1.13.424.2 .[id number] 2023 Private Health Insurance [id number] .[id number] 2023 Unknown [employer] [id number] 2023-Present [phone] [address] [address] [place] [address] 1.2.840.429300.1.13.693.2 .7.3.774141.315 2023 Unknown [id number] 2020 Unknown [id number] 1.2.840.536556.1.13.239.2 .7.3.716663.315 2016 Unknown [employer] EMP [id number] 2016-Present [phone] [address] [place] [address] xxxxxxxxxxxx 1.2.840.350846.1.13.239.2 .7.3.138055.315 1996 Unknown [id number] 2.840.1.189749.3.579.2 .1285 1996 Unknown [id number] 2.840.1.662871.3.579.2 .1285 1996 Unknown [id number] 2.16840.1.148680.3.579.2 .1285 1996 Unknown [id number] 2.840.1.750846.3.579.2 .1285 1996 Unknown [id number] 2.840.1.207724.3.579.2 .1285 1996 Unknown [id number] 2.16840.1.037480.3.579.2 .1285 1996 Unknown [id number] 2.16840.1.417613.3.579.2 .1285 1996 Unknown [id number] 2.16840.1.362463.3.579.2 .1285 1996 Unknown [id number] 2.16840.1.191780.3.579.2 .1285 1996 Unknown [id number] 2.16.840.1.458711.3.579.2 .1285 1996 Unknown [id number] 2.16.840.1.523691.3.579.2 .1285 1996 Unknown [id number] 2.16.840.1.526960.3.579.2 .1285 1996 Unknown [id number] 2.16.840.1.460274.3.579.2 .1285 1996 Unknown [id number] 2.16.840.1.327197.3.579.2 .1285 1996 Unknown [id number] 2.16.840.1.083650.3.579.2 .1285 1996 Unknown [id number] 2.16.840.1.067019.3.579.2 .1285 1996 Unknown [id number] 2.16840.1.582100.3.579.2 .1285 1996 Unknown [id number] 2.16840.1.780955.3.579.2 .1285 1996 Unknown [id number] 2.16840.1.484015.3.579.2 .1285 1996 Unknown [id number] 2.16.840.1.151596.3.579.2 .1285 1996 Unknown [id number] 2.16840.1.522851.3.579.2 .1285 1996 Unknown [id number] 2.16.840.1.808808.3.579.2 .1285 1996 Unknown [id number] 2.16840.1.337640.3.579.2 .1285 1996 Unknown [id number] 2.16.840.1.125328.3.579.2 .1285 1996 Unknown [id number] 2.16.840.1.511012.3.579.2 .1285 1996 Unknown [id number] 2.16840.1.991744.3.579.2 .1285 1996 Unknown [id number] 2.16840.1.112369.3.579.2 .1285 1996 Unknown [id number] 2.16840.1.732223.3.579.2 .1285 1996 Unknown [id number] 2.16840.1.933617.3.579.2 .1285 1996 Unknown [id number] 2.840.1.559375.3.579.2 .1285 1996 Unknown [id number] 2.840.1.217401.3.579.2 .1285 1996 Unknown [id number] 2.840.1.934455.3.579.2 .1285 1996 Unknown [id number] 2.840.1.130667.3.579.2 .1285 1996 Unknown [id number] 2.840.1.443514.3.579.2 .1285 1996 Unknown [id number] 2.840.1.078457.3.579.2 .1285 1996 Unknown [id number] 2.840.1.808654.3.579.2 .1285 1996 Unknown [id number] 2.840.1.668298.3.579.2 .1285 1996 Unknown [id number] 2.840.1.118467.3.579.2 .1996 Unknown [id number] 2.16840.1.742169.3.579.2 .1996 Unknown [id number] 2.16840.1.749159.3.579.2 .1258 1996 Unknown [id number] 2.16840.1.015666.3.579.2 .1259 1996 Unknown [id number] 2.16.840.1.146813.3.579.2 .9 1996 Unknown [id number] 2.16.840.1.979872.3.579.2 .9 1996 Unknown [id number] 2.16.840.1.452744.3.579.2 .1258 1996 Unknown [id number] 2.16.840.1.025272.3.579.2 .1258 1996 Unknown [id number] 2.16.840.1.318924.3.579.2 .1258 1996 Unknown [id number] 2.16840.1.785851.3.579.2 .1258 1996 Unknown [id number] 2.16.840.1.799652.3.579.2 .9 Social History Date Type Detail Facility Start: 07-13-2019 End: 02-16-2024 Tobacco smoking status NHIS Never smoker [place], [place] Start: 07-13-2019 End: 01-30-2022 Alcohol intake Current non-drinker of alcohol (finding) [place], [place] Start: 1995 Sex Assigned At Not on file [place], [place] Start: 04-16-2021 End: 02-16-2024 Tobacco use and exposure Never used [employer] Phone: Start: 04-16-2021 History SDOH Financial 5 [employer] Phone: Start: 04-16-2021 History SDOH Food Worry 1 [employer] Phone: Start: 04-16-2021 History SDOH Transport Med 2 [employer] Phone: Start: 06-02-2024 End: 04-12-2025 Alcoholic beverage intake Ex-drinker (finding) [facility] Start: 02-16-2024 End: 05-05-2024 History of Social function [facility] Start: 02-16-2024 End: 05-05-2024 Tobacco use panel [facility] Start: 12-27-2023 [facility] Start: 1995 Sex assigned at Female [facility] Start: 10-23-2023 Gender identity Identifies as female gender (finding) [facility] Start: 10-23-2023 Sexual orientation Heterosexual (finding) [facility] Has the electric, [employer], oil, or water company threatened to shut off services in your home in past 12Mo No [facility] How often to you hav e a drink containing alcohol? Monthly or less [facility] How many standard drinks containing alcohol do you have on a typical day? 1 or 2 [facility] How often do you hav e 6 or more drinks on 1 occasion? Never [facility] How hard is it for y ou to pay for the very basics like food, housing, medical care, and heating Not hard at all [facility] Start: 10-25-2012 End: 03-11-2024 Sex Female (finding) [facility] (I/We) worried wheth er (my/our) food would run out before (I/we) got money to buy more. Never true [place] [facility] Medical Equipment Procedure Code Equipment Code Equipment Origin al Text Equipment Identifier Dates [id number], [id number] Star t: 07-16-2024 End: 08-17-2024 Goals Date Patient Goal Desired Activity /State Personal health goal Clinical Notes 04-07-2024 to 04-25-2025 Hodan Bateman LPN - 04/25/2025 3:30 PM Samaria Macario LPN - 04/12/2025 9:00 AM Rebekah Francisco DO - 11/09/2024 9:30 AM CARO Bowles - 09/28/2024 11:20 AM ESTPatient Instructions Note Date & Type Note Facility 04-25-2025 History of Presen t illness Narrative Associated Order(s): IUD Insertion Post-Procedure Diagnose(s): Encounter for IUD removal Reason for Appointment: Patient ID: Barney Orosco is a 30 y.o. female who presents for Routine Visit Patient presents today for a IUD Removal appointment. MEDICATIONS Current Outpatient Medications Medication Instructions sertraline [...] nursing note reviewed. Exam conducted with a dental laboratory assistant present. Vitals: Estimated body mass index is 37.14 kg/m as calculated from the following: Height as of 02/16/24: 5' 4 . Weight as of 04/12/25: 216 lb 6.4 oz. BP: No LMP recorded. ASSESSMENT & PLAN Assessment/Plan Encounter Diagnosis: ICD-10-CM 1. Encounter for IUD removal Z30.432 US pelvis transvaginal IUD Insertion Performed by: Sree Francisco DO Authorized by: Sree Francisco DO Procedure: IUD removal Consent obtained by patient, parent, or legal power of assistant district attorney - including discussion of procedure risks and benefits, patient questions answered, and patient education provided: yes Reason for removal: patient request Strings visualized: no Tenaculum applied to cervix: yes Cervix manually dilated: no IUD grasped by forceps: no IUD removed: no Unable to remove IUD, refer for: removal at another facility IUD Removal: Patient presents today for removal of IUD. Written consent was obtained and patient was placed in dorsal lithotomy position with feet in stirrups. A sterile speculum was inserted into the vagina and the cervix was visualized. The IUD strings were NOT visualized. IUD unable to be removed in office at today's appointment, patient to be setup for Removal of IUD in OR at [facility]. Patient to have ultrasound obtained as well to check placement. Follow Up: Patient is to return to the office for annual exam unless needed otherwise Documented by Hodan Bateman LPN on behalf of: Sree Francisco DO documented in this encounter [facility] 04-12-2025 History of Presen t illness Narrative Reason for Appointment: Patient ID: Barney Orosco is a 30 y.o. female who presents [...] nursing note reviewed. Exam conducted with a dental laboratory assistant present. Vitals: Estimated body mass index is 37.14 kg/m as calculated from the following: Height [...] with those once we have them. Patient can also view results via [employer]. I reinforced importance of condom use for [...] Sree Francisco DO documented in this encounter [facility] 11-09-2024 History of Presen t illness Narrative Associated Order(s): IUD Insertion Post-Procedure Diagnose(s): Encounter for insertion of Mirena IUD Reason for Appointment: Patient ID: Barney Orosco is a 29 y.o. female who presents for Contraception (Mirena Insert) Patient presents today for a IUD Insertion appointment. MEDICATIONS Current Outpatient Medications Medication Instructions sertraline (Zoloft) 25 MG tablet 1 tablet, Daily ALLERGIES Allergies Allergen Reactions Cefprozil Hives SURGICAL HISTORY Past Surgical History: Procedure Laterality [...] Objective: Physical Exam Constitutional: Appearance: Normal appearance. Genitourinary: Right Adnexa: not tender and no mass present. Left Adnexa: not tender and no mass present. No cervical discharge. Breasts: Breasts are soft. Right: Normal. Left: Normal. HENT: Head: Normocephalic. Nose: Nose normal. Mouth/Throat: Mouth: Mucous membranes are moist. Cardiovascular: Rate and Rhythm: Normal rate. Pulmonary: Effort: Pulmonary effort is normal. Abdominal: General: Bowel sounds are normal. Palpations: Abdomen is soft. Musculoskeletal: General: Normal range of motion. Cervical back: Normal range of motion. Neurological: General: No focal deficit present. Mental Status: She is alert. Skin: General: Skin is warm and dry. Psychiatric: Mood and Affect: Mood normal. Vitals and nursing note reviewed. Exam conducted with a dental laboratory assistant present. Vitals: Estimated body mass index is 34.87 kg/m as calculated from the following: Height as of 02/16/24: 5' 4 . Weight as of this encounter: 203 lb 1.9 oz. BP: 120/70 Patient's last menstrual period was 10/28/2024. ASSESSMENT & PLAN Assessment/Plan Encounter Diagnosis: ICD-10-CM 1. Encounter for insertion of Mirena IUD Z30.430 Levonorgestrel intrauterine device 52 mg POCT , urine manually resulted 2. Burning with urination R30.0 POCT urinalysis dipstick manually resulted IUD Insertion Performed by: Sree Francisco DO Authorized by: Sree Francisco DO Procedure: IUD insertion Consent obtained by patient, parent, or legal power of assistant district attorney - including discussion of procedure risks and benefits, patient questions answered, and patient education provided: yes risk: reasonably certain the patient is not Immediately prior to procedure a time out was called: no Pelvic exam performed: no Speculum placed in vagina: yes Cervix cleaned and prepped: yes Tenaculum/Allis/Ring Forceps applied to cervix: yes Anesthesia used: no IUD inserted without complications: yes OSM: 52 mg Levonorgestrel 20 MCG/DAY Patient tolerated procedure well: yes Inserted with ultrasound guidance: no Intended removal date: 5 years Insertion comments: IUD Insertion: Patient presents today for an IUD Insertion. Patient is having a Mirena placed and written consent was obtained. Patient was placed in the dorsal lithotomy position with feet in stirrups. A sterile speculum ws placed into the vagina and the cervix was visualized. Cervix was cleansed with betadine and the anterior lip was grasped with ring forceps. Uterus was then gently sounded. New IUD device was gently advanced through the endocervix, toward te uterine fundus. The IUD was then deployed as device was gently removed from the uterus. The IUD strings were cut to the length from external os. All instruments were removed from the vagina. Post-procedure instructions given. All of patients questions were answered and she expressed understanding. Advised to call interim with any questions or concerns. Follow Up: Patient is to return to the office in 4 weeks for a string check. Documented by Lizeth Macario LPN on behalf of: Sree Francisco DO documented in this encounter [facility] 09-28-2024 History of Presen t illness Narrative Reason for Appointment: Patient ID: Barney Orosco is a 29 y.o. female who presents for Follow-up Patient presents today for Post Follow Up appointment. MEDICATIONS Current Outpatient Medications Medication Instructions sertraline [...] cancer Mother Caden Garcia Hypertension Father Louis Lackeybradtim Diabetes Father Louis Lackeybradtim Heart disease Father Louis Lackeybradtim Cancer Maternal Grandmother Cancer Maternal Grandfather Cisco [...] reviewed. Vitals: Estimated body mass index is 34.47 kg/m as calculated from the following: Height as of 24: 5' 4 . Weight as of this encounter: 200 lb 12.8 oz. BP: 100/60 Patient's last menstrual period was 12/13/2023. ASSESSMENT & PLAN ICD-10-CM 1. 6 weeks follow-up Z39.2 Post Follow Up: Patient is doing well.Patient presents today for 6 week visit. Patient is s/p delivery. Patient states depression but denies suicidal and homicidal ideations. All options were discussed with the patient regarding control and patient desires IUD. Follow Up: Patient is to return for annual unless needed otherwise. Documented by CARO Singh on behalf of: CARO Singh documented in this encounter [facility] 09-17-2024 History of Presen t illness Narrative Images from the original note were not included. Wound Care Progress Note Patient: Barney Orosco Date of : 1995 Chief Compliant: Nonhealing surgical wound, follow up SUBJECTIVE/HPI: Barney is a 29 y.o. female who presents to [facility] for evaluation of 1 ulcer(s) on the transverse lower abdomen. Patient established with wound clinic on 08/17/2024. Current daily wound care includes: alginate roping daily dressing changes. Patient states roping is not staying in place due to the small size of the wound. Patients baby was discharged home 09/07/2024. Baby is eating and sleeping well. Measurable wound changes: wound measure 0.04 100% epithelize Patient accompanied by:spouse, patient is ambulatory Nutritional screen shows patient does not take in three servings of protein per day. Patient does deny fever, chills, sweats, or other signs of infection. Prescribed antibiotics: completed as prescribed. 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, antepartum Poor growth affecting management of mother in third trimester Separation of chorion and amnion membranes, antepartum Amniotic band, third trimester, fetus 1 Cellulitis, unspecified cellulitis site Wound dehiscence, , condition Wound infection following section, Past Medical History: Diagnosis Date Anemia PCOS (polycystic ovarian syndrome) Pulmonary embolism ([facility] 2014 Past Surgical History: Procedure Laterality Date N/A 08/05/2024 Performed by Robert Doty MD at [facility] OR WISDOM TOOTH EXTRACTION Current Outpatient Medications Medication Sig Dispense Refill enoxaparin (LOVENOX) 40 mg/0.4 mL syringe Inject 0.4 mL (40 mg total) under the skin in the morning. 12 mL 6 25/iron fum/folic/dha (-1 ORAL) Take 1 tablet by mouth in the morning. sertraline (ZOLOFT) 25 mg tablet Take 1 tablet (25 mg total) by mouth in the morning. No current facility-administered medications for this visit. Allergies Allergen Reactions Aqua Care Sodium Chloride [Sodium Chloride] Cefprozil Hives The following portions of the patient's history were reviewed and updated as appropriate: allergies, current medications, past family history, past medical history, past social history, past surgical history, problem list, and medication reconciliation was completed including current medication and post discharge medication. Pain Scale: Pain Scale 0/10: 0 Review of Systems Constitutional: Negative. Negative for appetite change, chills and fever. HENT: Negative. Negative for trouble swallowing. Eyes: Negative. Respiratory: Negative. Negative for cough, shortness of breath and stridor. Cardiovascular: Negative. Negative for chest pain, palpitations and leg swelling. Gastrointestinal: Negative. Negative for abdominal distention, abdominal pain, nausea and vomiting. Genitourinary: Negative. Negative for dysuria, frequency and urgency. Skin: Negative for color change and wound. Neurological: Negative for weakness and numbness. Objective: Vitals: 09/17/24 0851 BP: 98/64 Pulse: 82 Temp: 36.8 C (98.2 F) Physical Exam Vitals and nursing note reviewed. Constitutional: Appearance: She is well-developed. HENT: Head: Normocephalic and atraumatic. Cardiovascular: Rate and Rhythm: Normal rate and regular rhythm. Heart sounds: No murmur heard. No friction rub. Pulmonary: Effort: No respiratory distress. Breath sounds: Normal breath sounds. Abdominal: General: Bowel sounds are normal. Palpations: Abdomen is soft. Musculoskeletal: General: Normal range of motion. Cervical back: Normal range of motion. Skin: General: Skin is warm and dry. Neurological: Mental Status: She is alert and oriented to person, place, and time. Wound Assessment Assessment/Plan/Education: 1. Wound dehiscence, , condition Wash mild soap and water Apply antibacterial ointment daily Cover with band aid Change daily for 2 weeks. Patient instructed in surgical wound care to abdomen. Short term goal: medical compliance manager intermediate goal: wound closure Patient verbalize understanding of treatment regimen and the importance of adherence. Follow up in wound clinic PRN Instructed to contact wound clinic, PCP or ER should symptoms worsen. The patient was taught to watch for S/S of infection (redness, pus, pain, increased swelling, chills or fever) and to call the PCP or wound care clinic if such occurs. The patient was educated on offloading the area by avoiding direct pressure to the wound bed. Education as well as the pathophysiology of the disease process was provided on infection, edema, necrotic tissue and its relationship to nonhealing wounds. Education was also provided on treatment plan. Patient verbalized understanding. Total time spent was 15 minutes: Preparing to see the patient (e.g., review of tests) Obtaining and/or reviewing separately obtained history Performing a medically appropriate examination and/or evaluation Counseling and educating the patient/family/caregiver Ordering medications, tests, or procedures Documenting clinical information in the electronic or other health record - JOSIE HOLBROOK 09/17/24 9:14 AM Renae Stafford APRN, ABHI, CWS, SABRNIA [facility]: [phone] JOSIE Holbrook 08/17/24 1407 JOSIE Holbrook 08/24/24 0908 JOSIE Holbrook 08/30/24 0851 JOSIE Holbrook 09/06/24 0848 JOSIE Holbrook 09/17/24 0951 documented in this encounter [facility] 09-17-2024 Instructions Rubi Moore RN - 09/17/2024 8:40 AM EST Wound Management Treatment Plan: Wound Location(s): Abdomen HOW TO CARE FOR YOUR WOUND The following should be performed Daily and as needed. STEP 1: Cleanse wound with Soap and water, rinse well, and pat dry. STEP 2: Apply antibacterial ointment and cover with a dry dressing until fully healed ACTIVITY: Avoid direct pressure to wound(s) at all times NUTRITION: High protein diet and Multivitamin with minerals daily SKIN CARE: May use heating pad or warm washcloth to abdomen to assist with alleviating redness and swelling. No sweeping, shoveling or picking up anything heavier than your baby. documented in this encounter [facility] 09-10-2024 History of Presen t illness Narrative Pt. Arrives with wound packed with silver alginate rope. States Snap Vac came off 09-07-24. Has been packing wound daily. Tomi Heaton was consulted. Snap vac will not be put on at this time. Pt. Will continue to pack wound with silver alginate rope daily per Tomi Heaton GENERAL EDUCATION INSTRUCTOR. documented in this encounter [facility] 09-10-2024 Instructions Argelia Gutierres RN - 09/10/2024 3:30 PM EST Nurse Visit 09/03/24, 09-10-24 Wound Management Treatment Plan: Wound Location(s): Abdomen HOW TO CARE FOR YOUR WOUND The following should be performed Daily and as needed. STEP 1: Cleanse wound with Soap and water, rinse well, and pat dry. STEP 2: Pack wound LIGHTLY with silver alginate rope. STEP 3: Cover with silicone border dressing or dry dressing of choice. ACTIVITY: Avoid direct pressure to wound(s) at all times NUTRITION: High protein diet and Multivitamin with minerals daily SKIN CARE: May use heating pad or warm washcloth to abdomen to assist with alleviating redness and swelling. documented in this encounter [facility] 09-06-2024 Miscellaneous Notes Formattin g of this note might be different from the original. This note was copied from a baby's chart. Met with mom at 's bedside. States pumping continues to go well with stable supply and no complaints of pain or breakdown. No immediate questions or concerns, encouraged to call out for any other assistance. documented in this encounter [facility] 09-06-2024 Obstetrics Note This note was copied from a baby's chart. Met with mom at infant's bedside. States pumping continues to go well with stable supply and no complaints of pain or breakdown. No immediate questions or concerns, encouraged to call out for any other assistance. [facility] 09-06-2024 History of Presen t illness Narrative Images from the original note were not included. Wound Care Progress Note Patient: Barney Orosco Date of : 1995 Chief Compliant: Nonhealing surgical wound, follow up SUBJECTIVE/HPI: Barney is a 29 y.o. female who presents to [facility] for evaluation of 1 ulcer(s) on the transverse lower abdomen. Patient established with wound clinic on 08/17/2024. Current daily wound care includes: NPWT, snap vacuum, 125 mmHg. Dressing is changed twice weekly in the wound care clinic. Patient delivered at 33+ weeks gestation via section. Baby remains in NICU. Mother was discharged 08/07/2024. Shortly after discharged developed fever, chills. Presented to the ED with fever of 101, tachycardia,warmth and erythema of abdomen. Patient underwent bedside I& d and received IV antibiotics. Patient currently is residing at the [facility] while the baby is hospitalized. Patient's chart was reviewed for all available supporting documentation, laboratory results and radiographic examination. Measurable wound changes: Derease in wound measurements Patient accompanied by:self, patient is ambulatory Nutritional screen shows patient does not take in three servings of protein per day. Patient does deny fever, chills, sweats, or other signs of infection. Prescribed antibiotics: completed as prescribed. 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, antepartum Poor growth affecting management of mother in third trimester Separation of chorion and amnion membranes, antepartum Amniotic band, third trimester, fetus 1 Cellulitis, unspecified cellulitis site Wound dehiscence, , condition Wound infection following section, Past Medical History: Diagnosis Date Anemia PCOS (polycystic ovarian syndrome) Pulmonary embolism ([facility]) 2014 Past Surgical History: Procedure Laterality Date N/A 08/05/2024 Performed by Robert Doty MD at [facility] OR WISDOM TOOTH EXTRACTION Current Outpatient Medications Medication Sig Dispense Refill enoxaparin (LOVENOX) 40 mg/0.4 mL syringe Inject 0.4 mL (40 mg total) under the skin in the morning. 12 mL 6 25/iron fum/folic/dha (-1 ORAL) Take 1 tablet by mouth in the morning. sertraline (ZOLOFT) 25 mg tablet Take 1 tablet (25 mg total) by mouth in the morning. No current facility-administered medications for this visit. Allergies Allergen Reactions Aqua Care Sodium Chloride [Sodium Chloride] Cefprozil Hives The following portions of the patient's history were reviewed and updated as appropriate: allergies, current medications, past family history, past medical history, past social history, past surgical history, problem list, and medication reconciliation was completed including current medication and post discharge medication. Pain Scale: Pain Scale 0/10: 0 Review of Systems Constitutional: Negative. Negative for appetite change, chills and fever. HENT: Negative. Negative for trouble swallowing. Eyes: Negative. Respiratory: Negative. Negative for cough, shortness of breath and stridor. Cardiovascular: Negative. Negative for chest pain, palpitations and leg swelling. Gastrointestinal: Negative. Negative for abdominal distention, abdominal pain, nausea and vomiting. Genitourinary: Negative. Negative for dysuria, frequency and urgency. Skin: Positive for color change and wound. Neurological: Negative for weakness and numbness. Objective: Vitals: 09/06/24 0813 BP: 103/67 Pulse: 81 Resp: 18 Temp: 36.1 C (97 F) Physical Exam Vitals and nursing note reviewed. Constitutional: Appearance: She is well-developed. HENT: Head: Normocephalic and atraumatic. Cardiovascular: Rate and Rhythm: Normal rate and regular rhythm. Heart sounds: No murmur heard. No friction rub. Pulmonary: Effort: No respiratory distress. Breath sounds: Normal breath sounds. Abdominal: General: Bowel sounds are normal. Palpations: Abdomen is soft. Musculoskeletal: General: Normal range of motion. Cervical back: Normal range of motion. Skin: General: Skin is warm and dry. Neurological: Mental Status: She is alert and oriented to person, place, and time. Wound Assessment Wound 08/17/24 1 Incision Abdomen Mid;Lower (Active) Wound Image 09/06/24 0803 Site Assessment Red;Bleeding 09/06/24 08 Sushma-wound Assessment Intact 09/06/24802 Wound Length (cm) 0.4 cm 09/06/24802 Wound Width (cm) 0.8 cm 09/06/24802 Wound Surface Area (cm^2) 0.32 cm^2 09/06/24802 Wound Depth (cm) 2 cm 09/06/24802 Wound Volume (cm^3) 0.64 cm^3 09/06/24802 Change in Wound Size % 46.67 09/06/24802 Drainage Description Serosanguineous 09/06/24802 Drainage Amount Small 09/06/24802 Treatments Cleansed with;Wound cleanser 09/06/24802 Debridement Performed? N 09/06/24802 Assessment/Plan/Education: 1. Wound dehiscence, , condition Wash mild soap and water SNaP, 125 mmHg, continuous, change twice weekly in wound clinic Baby likely to be discharged 09/08/2024, mother will follow up in [place] wound clinic. Patient instructed in surgical wound care to abdomen. Short term goal: medical compliance manager intermediate goal: wound closure Patient verbalize understanding of treatment regimen and the importance of adherence. Follow up in wound clinic twice weekly for NPWT dressing changes Follow up in [place] as scheduled 09/17/2024 Instructed to contact wound clinic, PCP or ER should symptoms worsen. The patient was taught to watch for S/S of infection (redness, pus, pain, increased swelling, chills or fever) and to call the PCP or wound care clinic if such occurs. The patient was educated on offloading the area by avoiding direct pressure to the wound bed. Education as well as the pathophysiology of the disease process was provided on infection, edema, necrotic tissue and its relationship to nonhealing wounds. Education was also provided on treatment plan. Patient verbalized understanding. Total time spent was 15 minutes: Preparing to see the patient (e.g., review of tests) Obtaining and/or reviewing separately obtained history Performing a medically appropriate examination and/or evaluation Counseling and educating the patient/family/caregiver Ordering medications, tests, or procedures Documenting clinical information in the electronic or other health record - RENAE STAFFORD APRN-ABHI 09/06/24 8:32 AM Renea Stafford APRN, ABHI, CWS, SABRINA [facility]: [phone] Renae An Osmani, SOUMYA-GENERAL EDUCATION INSTRUCTOR 08/17/24 1407 Renae An SOUMYA Stafford-GENERAL EDUCATION INSTRUCTOR 08/24/24 0908 Renae An SOUMYA Stafford-GENERAL EDUCATION INSTRUCTOR 08/30/24 0851 Renae An [place] 09/06[facility] 0848 documented in this encounter [facility] 09-06-2024 Instructions Daja Farah RN - 09/06/2024 8:00 AM EST Nurse Visit 09/03/24 Wound Management Treatment Plan: Wound Location(s): Abdomen HOW TO CARE FOR YOUR WOUND The following should be performed Daily and as needed. STEP 1: Cleanse wound with Soap and water, rinse well, and pat dry. STEP 2: Snap vac will be applied in clinic twice a week NPWT wound management Cleanse wound and periwound with soap and water after removing the old dressing. Dry intact skin completely. Apply skin prep around the wound. Apply blue foam to wound bed, including tunnels. Cover with hydrocolloid drape and initiate suction. Change 2 times per week (NPWT only) and as needed. Change canister weekly and as needed. Document number and type of foam inserted into wound. Alternate dressing :Pack wound bed with Opticel Ag rope leaving a tail for retrieval (use only one piece). Cover with an ABD pad. Secure with tape ACTIVITY: Avoid direct pressure to wound(s) at all times NUTRITION: High protein diet and Multivitamin with minerals daily SKIN CARE: May use heating pad or warm washcloth to abdomen to assist with alleviating redness and swelling. documented in this encounter [facility] 09-05-2024 Obstetrics Note This note was copied from a baby's chart. Pumping for infant in the NICU. Attempted a latch a few times today. latches well, but does not sustain long enough for a feed. potentially going ad rick feeding tomorrow. Encouraged OV for latch check and weighted feeds. Mother states she will schedule an appt, had one perviously but did not get discharged at anticipated date so appt was cancelled. Mother states no questions or concerns at this time. Encouraged to reach out to a LC for any future needs. [facility] 09-05-2024 Miscellaneous Notes Formattin g of this note might be different from the original. This note was copied from a baby's chart. Pumping for infant in the NICU. Attempted a latch a few times today. Infant latches well, but does not sustain long enough for a feed. potentially going ad rick feeding tomorrow. Encouraged OV for latch check and weighted feeds. Mother states she will schedule an appt, had one perviously but did not get discharged at anticipated date so appt was cancelled. Mother states no questions or concerns at this time. Encouraged to reach out to a LC for any future needs. documented in this encounter [facility] 09-03-2024 Miscellaneous Notes Formattin g of this note might be different from the original. This note was copied from a baby's chart. Met with mom at 's bedside. States pumping continues to go well with stable supply and no complaints of pain or breakdown. No immediate questions or concerns, encouraged to call out for any other assistance. documented in this encounter [facility] 09-03-2024 Obstetrics Note This note was copied from a baby's chart. Met with mom at infant's bedside. States pumping continues to go well with stable supply and no complaints of pain or breakdown. No immediate questions or concerns, encouraged to call out for any other assistance. [facility] 09-03-2024 History of Presen t illness Narrative Patient to clinic for SNAP vac dressing change. Previous dressing removed from abdominal wound. Wound cleansed with wound cleanser. New SNAP vac applied per order. Suction engaged and vac functioning properly at conclusion of visit. Patient expressed no discomfort with care. documented in this encounter [facility] 09-03-2024 Instructions Renae Carroll RN - 09/03/2024 8:00 AM EST Nurse Visit 09/03/24 Wound Management Treatment Plan: Wound Location(s): Abdomen HOW TO CARE FOR YOUR WOUND The following should be performed Daily and as needed. STEP 1: Cleanse wound with Soap and water, rinse well, and pat dry. STEP 2: Snap vac will be applied in clinic twice a week NPWT wound management Cleanse wound and periwound with soap and water after removing the old dressing. Dry intact skin completely. Apply skin prep around the wound. Apply blue foam to wound bed, including tunnels. Cover with hydrocolloid drape and initiate suction. Change 2 times per week (NPWT only) and as needed. Change canister weekly and as needed. Document number and type of foam inserted into wound. Alternate dressing :Pack wound bed with Opticel Ag rope leaving a tail for retrieval (use only one piece). Cover with an ABD pad. Secure with tape ACTIVITY: Avoid direct pressure to wound(s) at all times NUTRITION: High protein diet and Multivitamin with minerals daily SKIN CARE: May use heating pad or warm washcloth to abdomen to assist with alleviating redness and swelling. documented in this encounter [facility] 08-30-2024 History of Presen t illness Narrative Images from the original note were not included. Wound Care Progress Note Patient: Barney Orosco Date of : 1995 Chief Compliant: Nonhealing surgical wound, follow up SUBJECTIVE/HPI: Barney is a 29 y.o. female who presents to [facility] for evaluation of 1 ulcer(s) on the transverse lower abdomen. Patient established with wound clinic on 08/17/2024. Current daily wound care includes: gently packed with alginate roping. Dressing is changes once daily in the wound care clinic. Patient had a appointment 08/23/2024 with concern for infection due to purulent drainage. Started on Bactrim DS. Patient feels currently living condition at [facility] is safe and clean for dressing changes. Patient delivered at 4 weeks gestation via section. Baby remains in NICU. Mother was discharged 08/07/2024. Shortly after discharged developed fever, chills. Presented to the ED with fever of 101, tachycardia,warmth and erythema of abdomen. Patient underwent bedside I& d and received IV antibiotics. Patient currently is residing at the [facility] while the baby is hospitalized. Patient's chart was reviewed for all available supporting documentation, laboratory results and radiographic examination. Measurable wound changes: Increase in wound measurements Patient accompanied by:spouse, patient is ambulatory Nutritional screen shows patient does not take in three servings of protein per day. Patient does deny fever, chills, sweats, or other signs of infection. Prescribed antibiotics: started on Bactrim DS, patient is dumping breast milk until prescription completed. 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, antepartum Poor growth affecting management of mother in third trimester Separation of chorion and amnion membranes, antepartum Amniotic band, third trimester, fetus 1 Cellulitis, unspecified cellulitis site Wound dehiscence, , condition Wound infection following section, Past Medical History: Diagnosis Date Anemia PCOS (polycystic ovarian syndrome) Pulmonary embolism ([facility]) 2014 Past Surgical History: Procedure Laterality Date N/A 08/05/2024 Performed by Robert Doty MD at [facility] OR WISDOM TOOTH EXTRACTION Current Outpatient Medications Medication Sig Dispense Refill enoxaparin (LOVENOX) 40 mg/0.4 mL syringe Inject 0.4 mL (40 mg total) under the skin in the morning. 12 mL 6 25/iron fum/folic/dha (-1 ORAL) Take 1 tablet by mouth in the morning. sertraline (ZOLOFT) 25 mg tablet Take 1 tablet (25 mg total) by mouth in the morning. sulfamethoxazole-trimethoprim (BACTRIM DS) 800-160 mg per tablet Take 1 tablet by mouth in the morning and 1 tablet before bedtime. Do all this for 7 days. 14 tablet 0 No current facility-administered medications for this visit. Allergies Allergen Reactions Aqua Care Sodium Chloride [Sodium Chloride] Cefprozil Hives The following portions of the patient's history were reviewed and updated as appropriate: allergies, current medications, past family history, past medical history, past social history, past surgical history, problem list, and medication reconciliation was completed including current medication and post discharge medication. Pain Scale: Pain Scale 0/10: 0 Review of Systems Constitutional: Negative. Negative for appetite change, chills and fever. HENT: Negative. Negative for trouble swallowing. Eyes: Negative. Respiratory: Negative. Negative for cough, shortness of breath and stridor. Cardiovascular: Negative. Negative for chest pain, palpitations and leg swelling. Gastrointestinal: Negative. Negative for abdominal distention, abdominal pain, nausea and vomiting. Genitourinary: Negative. Negative for dysuria, frequency and urgency. Skin: Positive for color change and wound. Neurological: Negative for weakness and numbness. Objective: Vitals: 08/30/24811 BP: 90/54 Pulse: 74 Resp: 16 Temp: 36.3 C (97.3 F) Physical Exam Vitals and nursing note reviewed. Constitutional: Appearance: She is well-developed. HENT: Head: Normocephalic and atraumatic. Cardiovascular: Rate and Rhythm: Normal rate and regular rhythm. Heart sounds: No murmur heard. No friction rub. Pulmonary: Effort: No respiratory distress. Breath sounds: Normal breath sounds. Abdominal: General: Bowel sounds are normal. Palpations: Abdomen is soft. Musculoskeletal: General: Normal range of motion. Cervical back: Normal range of motion. Skin: General: Skin is warm and dry. Neurological: Mental Status: She is alert and oriented to person, place, and time. Wound Assessment Wound 08/17/24 1 Incision Abdomen Mid;Lower (Active) Wound Image 08/30/24803 Site Assessment Red;Bleeding 08/30/24803 Sushma-wound Assessment Intact 08/30/24803 Wound Length (cm) 0.6 cm 08/30/24803 Wound Width (cm) 0.8 cm 08/30/24803 Wound Surface Area (cm^2) 0.48 cm^2 08/30/24803 Wound Depth (cm) 2.3 cm 08/30/24803 Wound Volume (cm^3) 1.104 cm^3 08/30/24803 Change in Wound Size % 20 08/30/24803 Drainage Description Collins 08/30/24803 Drainage Amount Moderate 08/30/24803 Treatments Cleansed with;Wound cleanser 08/30/24803 Debridement Performed? N 08/30/24803 Wound Bed Granulation (%) 100% 08/30/24803 Tunneling 1 (cm) 1.8 cm 08/30/24803 Tunneling 1 Clock Position of Wound 3 o'clock 08/30/24803 Tunneling 2 (cm) 5.1 08/30/24803 Tunneling 2 Clock Position of Wound 8 o'clock 08/30/24803 Assessment/Plan/Education: 1. Wound dehiscence, , condition 2. Wound infection following section, Wash mild soap and water Gently pack with Alginate AG rope Cover with dry dressing of comfort Change daily in wound clinic until baby is discharged Continue ATB as prescribed. Prior authorization for SNaP negative pressure Patient instructed in surgical wound care to abdomen. Short term goal: medical compliance custodial goal: wound closure Patient verbalize understanding of treatment regimen and the importance of adherence. Follow up in wound clinic in 1 week Instructed to contact wound clinic, PCP or ER should symptoms worsen. The patient was taught to watch for S/S of infection (redness, pus, pain, increased swelling, chills or fever) and to call the PCP or wound care clinic if such occurs. The patient was educated on offloading the area by avoiding direct pressure to the wound bed. Education as well as the pathophysiology of the disease process was provided on infection, edema, necrotic tissue and its relationship to nonhealing wounds. Education was also provided on treatment plan. Patient verbalized understanding. Total time spent was 19 minutes: Preparing to see the patient (e.g., review of tests) Obtaining and/or reviewing separately obtained history Performing a medically appropriate examination and/or evaluation Counseling and educating the patient/family/caregiver Ordering medications, tests, or procedures Documenting clinical information in the electronic or other health record - RENAE STAFFORD APRNLINN 08/30/24 8:30 AM Renae Stafford APRN, ABHI, CWS, COCN [facility]: [phone] JOSIE Holbrook 08/17/24 1407 JOSIE Holbrook 08/24/24 0908 JOSIE Holbrook 08/30/24 0851 documented in this encounter [facility] 08-30-2024 Instructions Brianna Dougherty RN - 08/30/2024 8:00 AM EST Wound Management Treatment Plan: Prior authorization to be completed for SNAP VAC. Wound Location(s): Abdomen HOW TO CARE FOR YOUR WOUND The following should be performed Daily and as needed. STEP 1: Cleanse wound with Soap and water, rinse well, and pat dry. STEP 2: Pack with Opticell AG rope and leaving a small tail. Use 1 piece. STEP 3: Cover wound with ABD (Abdominal) dressing ACTIVITY: Avoid direct pressure to wound(s) at all times NUTRITION: High protein diet and Multivitamin with minerals daily SKIN CARE: May use heating pad or warm washcloth to abdomen to assist with alleviating redness and swelling. Length Width Depth Wound 08/17/24 1 Incision Abdomen Mid;Lower-Wound Length (cm): 0.6 cm Wound 08/17/24 1 Incision Abdomen Mid;Lower-Wound Width (cm): 0.8 cm Wound 08/17/24 1 Incision Abdomen Mid;Lower-Wound Depth (cm): 2.3 cm Wound drainage Type Description moderate Collins Collins documented in this encounter [facility] 08-27-2024 History of Presen t illness Narrative Patient arrived in clinic today accompany with spouse for daily dry dressing change. Old dressing removed noted moderate serosanguineous drainage. Wash wound with Wound cleanser and pat it dry. New dressing applied Opticel AG rope to wound bed area and cover with 4x4 silicone border foam. Patient spouse educated how to apply the dressing, stated he will be able to do if really needs it. Patient tolerated well, denies pain and no s/s of discomfort noted. documented in this encounter [facility] 08-27-2024 Instructions Juhi Juan LPN - 08/27/2024 8:00 AM EST Wound Management Treatment Plan: Nurse consult visit 08/27/2024 Wound Location(s): Abdomen HOW TO CARE FOR YOUR WOUND The following should be performed Daily and as needed. STEP 1: Cleanse wound with Soap and water, rinse well, and pat dry. STEP 2: Pack with Opticell AG rope and leaving a small tail. Use 1 piece. STEP 3: Cover wound with ABD (Abdominal) dressing ACTIVITY: Avoid direct pressure to wound(s) at all times NUTRITION: High protein diet and Multivitamin with minerals daily SKIN CARE: May use heating pad or warm washcloth to abdomen to assist with alleviating redness and swelling. Start taking antibiotic prescribed by Primary doctor. Length Width Depth Wound drainage Type Description moderate Serosanginous; Collins Collins documented in this encounter [facility] 08-26-2024 History of Presen t illness Narrative Patient arrived to clinic with gauze over wound. Patient states that packing had fallen out in the shower, however the previous nurse consult had been the day prior. Moderate, serosanguinous drainage noted. Opticell AG rope currently not in stock and chief writer was notified to use 1/4 Iodoform packing until Opticell AG rope is in stock. One strip used and covered with an ABD pad and secured with paper tape per patient request. VSS. Patient tolerated procedure well. documented in this encounter [facility] 08-26-2024 Instructions Cathy Ford RN - 08/26/2024 8:00 AM EST NURSE CONSULT (08/26/24) Wound Management Treatment Plan: Wound Location(s): Abdomen HOW TO CARE FOR YOUR WOUND The following should be performed Daily and as needed. STEP 1: Cleanse wound with Soap and water, rinse well, and pat dry. STEP 2: Pack with Opticell AG rope and leaving a small tail. Use 1 piece. Ok to use iodoform 1/4 packing strip if opticell AG rope is not available. STEP 3: Cover wound with ABD (Abdominal) dressing and secure with paper tape. ACTIVITY: Avoid direct pressure to wound(s) at all times NUTRITION: High protein diet and Multivitamin with minerals daily SKIN CARE: May use heating pad or warm washcloth to abdomen to assist with alleviating redness and swelling. Start taking antibiotic prescribed by Primary doctor. Length Width Depth Wound drainage Type Description moderate Serosanginous; Collins Collins documented in this encounter [facility] 08-25-2024 Obstetrics Note This note was copied from a baby's chart. Met with mother at infant bedside and discussed pumping/storing milk and not feeding it to infant. Mother is on high dose of antibiotics and per neodoc recommended to not use breast milk while on medication. Mother is taking medication for 7 days, 2x a day. According to the half life, about 48 hours after last dosage, expressed breast milk should be able to be used. The milk pumped during this week span is encouraged to be used for baths, lotions, soaps etc. Ingestion is not reccommended due to the risk of increased bilirubin for . Mother agreeable and understanding. Encouraged to call out for further questions or concerns. Breast Milk Collection and Storage Guidelines Remember to collect and store breast milk in clean containers specifically made for breast milk storage. Room temperature: up to 4 hours Cooler: up to 24 hours Refrigerator: up to 4 days Freezer: up to 6 months Deep Freezer: up to 12 months Breast milk thawed in refrigerator: If you thaw your frozen breast milk in the refrigerator, you can keep it there for up to 24 hours, or at room temperature for up to 2 hours. Once frozen breast milk is thawed, do not refreeze it. Safe Handling for Pumped Breast Milk If you see that your stored breast milk has and there s cream at the top, don t worry - it s normal for this to happen! Just gently swirl warmed bottles to mix the milk layers. You can add small amounts of cooled breast milk to the same refrigerated container during the day. Avoid adding warm milk to already cooled milk. Thaw frozen breast milk overnight in the refrigerator, or hold the bottle under warm running water. Don t use the microwave to heat your breast milk - it can damage the composition of the milk and cause hot spots that could burn your little one s mouth. Replace duck valves between 1 and 3 months If you exclusively express or you express 4 or more times per day, be sure to replace your duck valves every month. If you use your pump less frequently, e.g. 1 to 3 times per day, you can replace this part every 2 to 3 months. Also, if you sterilise regularly (e.g. once per day), you ll need to replace this part once a month or more often depending on use. Frequent sterilisation causes parts to wear out faster than they would under normal circumstances, so it s important to check periodically for a decrease in elasticity or warping of this part. Replace valve membranes between 2 weeks and 8 weeks If you exclusively express or you express 4 or more times per day, be sure to replace your valve membrane every 2 to 4 weeks. If you express less frequently, replace valve membranes every 8 weeks. Valve membranes wear down easily and lose elasticity over time, which impacts pump performance and milk output. Replacing the membrane on a valve solves a lot of output and performance issues. The membranes can even become warped, so if you see that they don t lay at against the valve anymore, it s time to replace them. Also, if you sterilise regularly (e.g. once per day), you ll need to replace this part every 2 weeks or more often depending on use. Replace backflow protectors between 3 and 6 months The membranes within the backflow protectors stretch and lose elasticity over time, which impacts the performance of the pump. It is extremely important to replace backflow protectors regularly because they prevent moisture from entering the pump motor, which can cause irreparable damage to the pump. If you exclusively express or you express 4 or more times per day, be sure to replace your backflow protectors every 3 months. If you use your pump less frequently, e.g. 1 to 3 times per day, you can replace this part every 6 months. Additionally, always replace these as soon as you see any tearing or rippling in the backflow protector membrane. Also, if you sterilise regularly (e.g. once per day), you ll need to replace this part every 3 months or more often depending on use, so always be sure to check for warping or discoloration of the membrane. Replace breastshields every 6 months The most rigorous cleaning routines are no match for the inevitable buildup of residue in the hard to reach areas of the breastshield. If you re exclusively pumping or pumping 4 or more times per day, a good rule of thumb is to replace breastshields (or the piece that connects the flange to the bottle, if you re using a 2 piece breastshield) every 6 months. If you pump less frequently, be sure to check regularly for residue buildup and then replace as needed. Frequent sterilisation can also cause discoloration of the breastshield; this does not impact performance, but always inspect it for warping or cracking prior to use. Replace tubing if there is moisture or residue in the tubing Before each use Wash hands. Wash hands well with soap and water for 20 seconds. Assemble. Assemble clean pump kit. Inspect whether the pump kit or tubing has become moldy or soiled during storage. If your tubing is moldy, discard and replace immediately. Clean if using a shared pump. Clean pump dials, power switch, and countertop with disinfectant wipe. After every use Store milk safely. Cap milk collection bottle or seal milk collection bag, label with date and time, and immediately place in a refrigerator, freezer, or cooler bag with ice packs. Clean pumping area. Especially if using a shared pump, clean the dials, power switch, and countertop with disinfectant wipes. Take apart and inspect pump kit. Take apart breast pump tubing and separate all parts that come in contact with breast/breast milk (for example, flanges, valves, membranes, connectors, and milk collection bottles). Rinse pump kit. Rinse breast pump parts that come into contact with breast/breast milk under running water to remove remaining milk Clean pump kit. As soon as possible after pumping, clean pump parts that come into contact with breast/breast milk in one of the following ways. You can clean your pump parts in a electrical foreman or by hand in a wash basin used only for cleaning the pump kit and infant feeding items Hand Wash - Place pump parts in a clean wash basin used only for feeding items. Do not place pump parts directly in the sink! Add soap and hot water to basin. Scrub items using a clean brush used only for infant feeding items. Rinse by holding items under running water, or by submerging in fresh water in a separate basin. Air-dry thoroughly. Place pump parts, wash basin, and bottle brush on a clean, unused dish towel or paper towel in an area protected from dirt and dust. Do not use a dish towel to rub or pat items dry! Clean wash basin and bottle brush. Rinse them well and allow them to air-dry after each use. Mechanic Assistant - Clean pump parts in a electrical foreman, if they are electrical foreman-safe. Be sure to place small items into a closed-top basket or mesh laundry bag. Add soap and, if possible, run the electrical foreman using hot water and a heated drying cycle (or sanitizing setting). Remove from electrical foreman with clean hands. If items are not completely dry, place items on a clean, unused dish towel or paper towel to air-dry thoroughly before storing. Do not use a dish towel to rub or pat items dry! Clean wash basin and bottle brush. If you use a wash basin or bottle brush when cleaning your pump parts, rinse them well and allow them to air-dry after each use. Consider washing them every few days, either in a electrical foreman with hot water and a heated drying cycle if they are electrical foreman-safe, or by hand with soap and warm water. For extra protection, sanitize. For extra germ removal, sanitize pump parts at least once daily. Sanitizing is especially important if your baby is less than 2 months old, was born prematurely, or has a weakened immune system due to illness or medical treatment (such as chemotherapy for cancer). Daily sanitizing of pump parts may not be necessary for older, healthy babies, if the parts are cleaned carefully after each use. Sanitize all items (even the bottle brush and wash basin!) by using one of the following options: Clean first. Pump parts, bottle brushes, and wash basins should be sanitized only after they have been cleaned. Sanitize. Sanitize the pump kit, bottle brushes, and wash basins using one of the following options. Check dialysis clinical manager's instructions about whether items may be steamed or boiled. Steam: Use a microwave or plug-in steam system according to the dialysis clinical manager s directions. Boil: Place disassembled items that are safe to boil into a pot and cover with water. Put the pot over heat and bring to a boil. Boil for 5 minutes. Remove items with clean tongs. Allow to air-dry thoroughly. Place sanitized pump parts, wash basin, and bottle brush on a clean, unused dish towel or paper towel in an area protected from dirt and dust. Do not use a dish towel to rub or pat items dry because doing so may transfer germs to the items. Store safely until needed Allow the clean pump parts, bottle brushes, and wash basins to air-dry thoroughly before storing to help prevent germs and mold from growing. Once completely dry, the items should be stored in a clean, protected area to prevent contamination during storage. Put together the clean, dry pump parts. Place reassembled pump kit in a clean, protected area such as inside an unused, sealable food storage bag. Store wash basins and bottle brushes in a clean area. [facility] 08-25-2024 Miscellaneous Notes Formattin g of this note is different from the original. This note was copied from a baby's chart. Met with mother at bedside and discussed pumping/storing milk and not feeding it to infant. Mother is on high dose of antibiotics and per neodoc recommended to not use breast milk while on medication. Mother is taking medication for 7 days, 2x a day. According to the half life, about 48 hours after last dosage, expressed breast milk should be able to be used. The milk pumped during this week span is encouraged to be used for baths, lotions, soaps etc. Ingestion is not reccommended due to the risk of increased bilirubin for . Mother agreeable and understanding. Encouraged to call out for further questions or concerns. Breast Milk Collection and Storage Guidelines Remember to collect and store breast milk in clean containers specifically made for breast milk storage. Room temperature: up to 4 hours Cooler: up to 24 hours Refrigerator: up to 4 days Freezer: up to 6 months Deep Freezer: up to 12 months Breast milk thawed in refrigerator: If you thaw your frozen breast milk in the refrigerator, you can keep it there for up to 24 hours, or at room temperature for up to 2 hours. Once frozen breast milk is thawed, do not refreeze it. Safe Handling for Pumped Breast Milk If you see that your stored breast milk has and there s cream at the top, don t worry - it s normal for this to happen! Just gently swirl warmed bottles to mix the milk layers. You can add small amounts of cooled breast milk to the same refrigerated container during the day. Avoid adding warm milk to already cooled milk. Thaw frozen breast milk overnight in the refrigerator, or hold the bottle under warm running water. Don t use the microwave to heat your breast milk - it can damage the composition of the milk and cause hot spots that could burn your little one s mouth. Replace duck valves between 1 and 3 months If you exclusively express or you express 4 or more times per day, be sure to replace your duck valves every month. If you use your pump less frequently, e.g. 1 to 3 times per day, you can replace this part every 2 to 3 months. Also, if you sterilise regularly (e.g. once per day), you ll need to replace this part once a month or more often depending on use. Frequent sterilisation causes parts to wear out faster than they would under normal circumstances, so it s important to check periodically for a decrease in elasticity or warping of this part. Replace valve membranes between 2 weeks and 8 weeks If you exclusively express or you express 4 or more times per day, be sure to replace your valve membrane every 2 to 4 weeks. If you express less frequently, replace valve membranes every 8 weeks. Valve membranes wear down easily and lose elasticity over time, which impacts pump performance and milk output. Replacing the membrane on a valve solves a lot of output and performance issues. The membranes can even become warped, so if you see that they don t lay at against the valve anymore, it s time to replace them. Also, if you sterilise regularly (e.g. once per day), you ll need to replace this part every 2 weeks or more often depending on use. Replace backflow protectors between 3 and 6 months The membranes within the backflow protectors stretch and lose elasticity over time, which impacts the performance of the pump. It is extremely important to replace backflow protectors regularly because they prevent moisture from entering the pump motor, which can cause irreparable damage to the pump. If you exclusively express or you express 4 or more times per day, be sure to replace your backflow protectors every 3 months. If you use your pump less frequently, e.g. 1 to 3 times per day, you can replace this part every 6 months. Additionally, always replace these as soon as you see any tearing or rippling in the backflow protector membrane. Also, if you sterilise regularly (e.g. once per day), you ll need to replace this part every 3 months or more often depending on use, so always be sure to check for warping or discoloration of the membrane. Replace breastshields every 6 months The most rigorous cleaning routines are no match for the inevitable buildup of residue in the hard to reach areas of the breastshield. If you re exclusively pumping or pumping 4 or more times per day, a good rule of thumb is to replace breastshields (or the piece that connects the flange to the bottle, if you re using a 2 piece breastshield) every 6 months. If you pump less frequently, be sure to check regularly for residue buildup and then replace as needed. Frequent sterilisation can also cause discoloration of the breastshield; this does not impact performance, but always inspect it for warping or cracking prior to use. Replace tubing if there is moisture or residue in the tubing Before each use Wash hands. Wash hands well with soap and water for 20 seconds. Assemble. Assemble clean pump kit. Inspect whether the pump kit or tubing has become moldy or soiled during storage. If your tubing is moldy, discard and replace immediately. Clean if using a shared pump. Clean pump dials, power switch, and countertop with disinfectant wipe. After every use Store milk safely. Cap milk collection bottle or seal milk collection bag, label with date and time, and immediately place in a refrigerator, freezer, or cooler bag with ice packs. Clean pumping area. Especially if using a shared pump, clean the dials, power switch, and countertop with disinfectant wipes. Take apart and inspect pump kit. Take apart breast pump tubing and separate all parts that come in contact with breast/breast milk (for example, flanges, valves, membranes, connectors, and milk collection bottles). Rinse pump kit. Rinse breast pump parts that come into contact with breast/breast milk under running water to remove remaining milk Clean pump kit. As soon as possible after pumping, clean pump parts that come into contact with breast/breast milk in one of the following ways. You can clean your pump parts in a electrical foreman or by hand in a wash basin used only for cleaning the pump kit and feeding items Hand Wash - Place pump parts in a clean wash basin used only for feeding items. Do not place pump parts directly in the sink! Add soap and hot water to basin. Scrub items using a clean brush used only for infant feeding items. Rinse by holding items under running water, or by submerging in fresh water in a separate basin. Air-dry thoroughly. Place pump parts, wash basin, and bottle brush on a clean, unused dish towel or paper towel in an area protected from dirt and dust. Do not use a dish towel to rub or pat items dry! Clean wash basin and bottle brush. Rinse them well and allow them to air-dry after each use. Mechanic Assistant - Clean pump parts in a electrical foreman, if they are electrical foreman-safe. Be sure to place small items into a closed-top basket or mesh laundry bag. Add soap and, if possible, run the electrical foreman using hot water and a heated drying cycle (or sanitizing setting). Remove from electrical foreman with clean hands. If items are not completely dry, place items on a clean, unused dish towel or paper towel to air-dry thoroughly before storing. Do not use a dish towel to rub or pat items dry! Clean wash basin and bottle brush. If you use a wash basin or bottle brush when cleaning your pump parts, rinse them well and allow them to air-dry after each use. Consider washing them every few days, either in a electrical foreman with hot water and a heated drying cycle if they are electrical foreman-safe, or by hand with soap and warm water. For extra protection, sanitize. For extra germ removal, sanitize pump parts at least once daily. Sanitizing is especially important if your baby is less than 2 months old, was born prematurely, or has a weakened immune system due to illness or medical treatment (such as chemotherapy for cancer). Daily sanitizing of pump parts may not be necessary for older, healthy babies, if the parts are cleaned carefully after each use. Sanitize all items (even the bottle brush and wash basin!) by using one of the following options: Clean first. Pump parts, bottle brushes, and wash basins should be sanitized only after they have been cleaned. Sanitize. Sanitize the pump kit, bottle brushes, and wash basins using one of the following options. Check dialysis clinical manager's instructions about whether items may be steamed or boiled. Steam: Use a microwave or plug-in steam system according to the dialysis clinical manager s directions. Boil: Place disassembled items that are safe to boil into a pot and cover with water. Put the pot over heat and bring to a boil. Boil for 5 minutes. Remove items with clean tongs. Allow to air-dry thoroughly. Place sanitized pump parts, wash basin, and bottle brush on a clean, unused dish towel or paper towel in an area protected from dirt and dust. Do not use a dish towel to rub or pat items dry because doing so may transfer germs to the items. Store safely until needed Allow the clean pump parts, bottle brushes, and wash basins to air-dry thoroughly before storing to help prevent germs and mold from growing. Once completely dry, the items should be stored in a clean, protected area to prevent contamination during storage. Put together the clean, dry pump parts. Place reassembled pump kit in a clean, protected area such as inside an unused, sealable food storage bag. Store wash basins and bottle brushes in a clean area. documented in this encounter [facility] 08-25-2024 History of Presen t illness Narrative Patient to clinic today for abdominal dressing change. Previous dressing removed, wound cleansed with wound drain cleaner plumber, patted dry. VS obtained and documented. Opticell AG and Abd pad applied per orders. No complaints of pain or discomfort noted at the conclusion of the visit. documented in this encounter [facility] 08-25-2024 Instructions Maira Lebron LPN - 08/25/2024 9:30 AM EST Nurse visit 08/25/2024 Wound Management Treatment Plan: Nurse consult visit 08/19/2024 Wound Location(s): Abdomen HOW TO CARE FOR YOUR WOUND The following should be performed Daily and as needed. STEP 1: Cleanse wound with Soap and water, rinse well, and pat dry. STEP 2: Pack with Opt[employer]ell AG rope and leaving a small tail. Use 1 piece. STEP 3: Cover wound with ABD (Abdominal) dressing ACTIVITY: Avoid direct pressure to wound(s) at all times NUTRITION: High protein diet and Multivitamin with minerals daily SKIN CARE: May use heating pad or warm washcloth to abdomen to assist with alleviating redness and swelling. Start taking antibiotic prescribed by Primary doctor. Length Width Depth Wound drainage Type Description moderate Serosanginous; Collins Collins documented in this encounter [facility] 08-24-2024 History of Presen t illness Narrative Images from the original note were not included. Wound Care Progress Note Patient: Barney Orosco Date of : 1995 Chief Compliant: Nonhealing surgical wound, follow up SUBJECTIVE/HPI: Barney is a 29 y.o. female who presents to [facility] for evaluation of 1 ulcer(s) on the transverse lower abdomen. Patient established with wound clinic on 08/17/2024. Current daily wound care includes: gently packed with Iodoform gauze. Dressing is changes once daily in the wound care clinic. Patient had a appointment 08/23/2024 with concern for infection due to purulent drainage. Started on Bactrim DS. Patient feels currently living condition at [facility] is safe and clean for dressing changes. Patient delivered at 4 weeks gestation via section. Baby remains in NICU. Mother was discharged 08/07/2024. Shortly after discharged developed fever, chills. Presented to the ED with fever of 101, tachycardia,warmth and erythema of abdomen. Patient underwent bedside I& d and received IV antibiotics. Patient currently is residing at the [facility] while the baby is hospitalized. Patient's chart was reviewed for all available supporting documentation, laboratory results and radiographic examination. Measurable wound changes: decrease in wound measurements Patient accompanied by:spouse, patient is ambulatory Nutritional screen shows patient does not take in three servings of protein per day. Patient does deny fever, chills, sweats, or other signs of infection. Prescribed antibiotics: started on Bactrim DS, patient is dumping breast milk until prescription completed. 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, antepartum Poor growth affecting management of mother in third trimester Separation of chorion and amnion membranes, antepartum Amniotic band, third trimester, fetus 1 Cellulitis, unspecified cellulitis site Wound dehiscence, , condition Wound infection following section, Past Medical History: Diagnosis Date Anemia PCOS (polycystic ovarian syndrome) Pulmonary embolism ([facility] 2014 Past Surgical History: Procedure Laterality Date N/A 08/05/2024 Performed by Robert Doty MD at [facility] OR WISDOM TOOTH EXTRACTION Current Outpatient Medications Medication Sig Dispense Refill acetaminophen (TYLENOL EXTRA STRENGTH) 500 mg tablet Take 2 tablets (1,000 mg total) by mouth every 8 (eight) hours. 30 tablet 0 docusate sodium (COLACE) 100 mg capsule Take 1 capsule (100 mg total) by mouth in the morning and 1 capsule (100 mg total) before bedtime. 30 capsule 0 enoxaparin (LOVENOX) 40 mg/0.4 mL syringe Inject 0.4 mL (40 mg total) under the skin in the morning. 12 mL 6 ibuprofen (MOTRIN) 800 mg tablet Take 1 tablet (800 mg total) by mouth every 8 (eight) hours. 30 tablet 0 25/iron fum/folic/dha (-1 ORAL) Take 1 tablet by mouth in the morning. sertraline (ZOLOFT) 25 mg tablet Take 1 tablet (25 mg total) by mouth in the morning. sulfamethoxazole-trimethoprim (BACTRIM DS) 800-160 mg per tablet Take 1 tablet by mouth in the morning and 1 tablet before bedtime. Do all this for 7 days. 14 tablet 0 No current facility-administered medications for this visit. Allergies [facility]ergen Reactions [facility] Sodium Chloride [Sodium Chloride] Cefprozil Hives The following portions of the patient's history were reviewed and updated as appropriate: allergies, current medications, past family history, past medical history, past social history, past surgical history, problem list, and medication reconciliation was completed including current medication and post discharge medication. Pain Scale: Pain Scale 0/10: 0 Review of Systems Constitutional: Negative. Negative for appetite change, chills and fever. HENT: Negative. Negative for trouble swallowing. Eyes: Negative. Respiratory: Negative. Negative for cough, shortness of breath and stridor. Cardiovascular: Negative. Negative for chest pain, palpitations and leg swelling. Gastrointestinal: Negative. Negative for abdominal distention, abdominal pain, nausea and vomiting. Genitourinary: Negative. Negative for dysuria, frequency and urgency. Skin: Positive for color change and wound. Neurological: Negative for weakness and numbness. Objective: Vitals: 08/24/24 0700 BP: 127/79 Pulse: 77 Resp: 18 Temp: 36.2 C (97.2 F) Physical Exam Vitals and nursing note reviewed. Constitutional: Appearance: She is well-developed. HENT: Head: Normocephalic and atraumatic. Cardiovascular: Rate and Rhythm: Normal rate and regular rhythm. Heart sounds: No murmur heard. No friction rub. Pulmonary: Effort: No respiratory distress. Breath sounds: Normal breath sounds. Abdominal: General: Bowel sounds are normal. Palpations: Abdomen is soft. Musculoskeletal: General: Normal range of motion. Cervical back: Normal range of motion. Skin: General: Skin is warm and dry. Neurological: Mental Status: She is alert and oriented to person, place, and time. Wound Assessment Wound 08/17/24 1 Incision Abdomen Mid;Lower (Active) Wound Image 08/24/24808 Site Assessment Red;[place];Collins 08/24/24808 Sushma-wound Assessment Blanchable erythema;Red;Painful;[place] 08/24/24808 Wound Length (cm) 0.4 cm 08/24/24808 Wound Width (cm) 0.9 cm 08/24/24808 Wound Surface Area (cm^2) 0.36 cm^2 08/24/24808 Wound Depth (cm) 2.2 cm 08/24/24808 Wound Volume (cm^3) 0.792 cm^3 08/24/24808 Change in Wound Size % 40 08/24/24808 Drainage Description Serosanguineous;Collins;Yellow 08/24/24808 Drainage Amount Moderate 08/24/24808 Debridement Performed? N 08/24/24819 Dressing Type Abdominal dressing 08/24/24819 Dressing Changed New 08/24/24819 Dressing Status Clean;Dry;Intact 08/24/24819 Wound Bed Epithelium (%) 75% to 100% 08/24/24808 Wound Bed Slough (%) < 25% 08/24/24808 Tunneling 1 (cm) 2.3 cm 08/24/24808 Tunneling 1 Clock Position of Wound 3 o'clock 08/24/24808 Assessment/Plan/Education: 1. Wound infection following section, Wash mild soap and water Gently pack with Alginate AG rope Cover with dry dressing of comfort Change daily in wound clinic until baby is discharged Continue ATB as prescribed. Patient instructed in surgical wound care to abdomen. Short term goal: medical compliance custodial goal: wound closure Patient verbalize understanding of treatment regimen and the importance of adherence. Follow up in wound clinic in 1 week Instructed to contact wound clinic, PCP or ER should symptoms worsen. The patient was taught to watch for S/S of infection (redness, pus, pain, increased swelling, chills or fever) and to call the PCP or wound care clinic if such occurs. The patient was educated on offloading the area by avoiding direct pressure to the wound bed. Education as well as the pathophysiology of the disease process was provided on infection, edema, necrotic tissue and its relationship to nonhealing wounds. Education was also provided on treatment plan. Patient verbalized understanding. Total time spent was 19 minutes: Preparing to see the patient (e.g., review of tests) Obtaining and/or reviewing separately obtained history Performing a medically appropriate examination and/or evaluation Counseling and educating the patient/family/caregiver Ordering medications, tests, or procedures Documenting clinical information in the electronic or other health record - JOSIE HOLBROOK 08/24/24 8:39 AM Renae Staffrod APRN, ABHI, CWS, SABRINA [facility]: [phone] JOSIE Holbrook 08/17/24 1407 JOSIE Holbrook 08/24/24 0908 documented in this encounter [facility] 08-24-2024 Instructions Daja Farah RN - 08/24/2024 8:20 AM EST Wound Management Treatment Plan: Nurse consult visit 08/19/2024 Wound Location(s): Abdomen HOW TO CARE FOR YOUR WOUND The following should be performed Daily and as needed. STEP 1: Cleanse wound with Soap and water, rinse well, and pat dry. STEP 2: Pack with [employer] rope and leaving a small tail. Use 1 piece. STEP 3: Cover wound with ABD (Abdominal) dressing ACTIVITY: Avoid direct pressure to wound(s) at all times NUTRITION: High protein diet and Multivitamin with minerals daily SKIN CARE: May use heating pad or warm washcloth to abdomen to assist with alleviating redness and swelling. Start taking antibiotic prescribed by Primary doctor. Length Width Depth Wound 08/17/24 1 Incision Abdomen Mid;Lower-Wound Length (cm): 0.4 cm Wound 08/17/24 1 Incision Abdomen Mid;Lower-Wound Width (cm): 0.9 cm Wound 08/17/24 1 Incision Abdomen Mid;Lower-Wound Depth (cm): 2.2 cm Wound drainage Type Description moderate Serosanginous; Collins Collins documented in this encounter [facility] 08-23-2024 History of Presen t illness Narrative CC: Post Op Visit S/p unscheduled primary on 08/05/24 at 33+ weeks for persistent decelerations. Care notable for umbilical cord band, acute blood loss anemia She was released home on POD#2 Readmitted on 08/13/24 with abscess of her incision site. She rec'd drainage of wound and antibiotics. She was released home on 08/15/24. Oral antibiotics: Amoxicillin for 5 days after release home. Patient states she did complete She has been seen by the Wound care team on 08/17/24 Currently at [facility] Today she reports she is changing her dressing daily. Heavy Bleeding No Depression: Low Risk (08/23/2024) [place] Depression Scale Last EPDS Total Score: 2 Last EPDS Self Harm Result: Never Infant feeding: breast pumping is in the NICU BCM: wants to discuss with primary ob PE BP 110/72 (BP Site: Right Arm, BP Postition: Sitting, BP CUFF SIZE: M (9-13 inches)) Temp 36.8 C (98.2 F) Ht 162.6 cm (5' 4 ) Wt 91.7 kg (202 lb 1.6 oz) LMP 12/13/2023 Yes BMI 34.69 kg/m Alert, NAD Abdomen: Soft, NT, nondistended Incision: 1 cm opening. Dressing removed. +purulent material drainage Small amt of purulence expressed from wound Tissue that is visible has good granulation Above incision to left of center still with erythema up to 3 cm from incision Packing placed (half inch iodoform) Lab Results Component Value Date WBC 10.9 08/15/2024 HGB 11.3 (L) 08/15/2024 HCT 34.4 (L) 08/15/2024 MCV 89 08/15/2024 PLT 348 08/15/2024 Path Report: None Influenza vaccine recommended and education provided for Fall 2023. Last TDaP 2013. Patient notified and TDaP recommended. Patient declined today. S/p influenza 08/12/24 Imp/Plan Post Op , doing well Notable for postoperative wound infection requiring drainage and undergoing packing Has wound care follow up on 08/24/24 Appears to have persistent cellulitis. Discussed with patient and Dr. Abernathy (NICU provider for the infant). She will pump and discard until completion of a 7 day course of Bactrim. Return 1 week for wound check Continue with wound care Return to office for exam [address] Francisco Note to patient: The Cures Act makes [...] and the clinical opinion of the practitioner. Patient here for incision check. Has been going to wound care daily and her changed the dressing over the weekend. Denies redness or drainage from incision. Denies fevers. Finished the antibiotics. documented in this encounter [facility] 08-21-2024 Miscellaneous Notes Formattin g of this note might be different from the original. This note was copied from a baby's chart. Met with mother at infants bedside. Reports pumping going well. Supply same. No complaints of pain. No questions or concerns. Support given. documented in this encounter [facility] 08-21-2024 Obstetrics Note This note was copied from a baby's chart. Met with mother at infants bedside. Reports pumping going well. Supply same. No complaints of pain. No questions or concerns. Support given. [facility] 08-20-2024 Miscellaneous Notes Formattin g of this note might be different from the original. This note was copied from a baby's chart. Met with mom at infant's bedside. States pumping continues to go well with stable supply and no complaints of pain or breakdown. No immediate questions or concerns, encouraged to call out for any other assistance. documented in this encounter [facility] 08-20-2024 Obstetrics Note This note was copied from a baby's chart. Met with mom at infant's bedside. States pumping continues to go well with stable supply and no complaints of pain or breakdown. No immediate questions or concerns, encouraged to call out for any other assistance. [facility] 08-20-2024 History of Presen t illness Narrative Patient here for dressing change in clinic today. Vital signs completed. Wound cleansed with wound cleanser. Packed with 1/4 iodoform and covered with ABD. Pt expressed some discomfort with dressing change only but tolerated well. Upon leaving, patient did not express any further discomfort. Spouse present in room and educated on dressing changes. Spouse demonstrated successful completion of packing wound. documented in this encounter [facility] 08-20-2024 Instructions Brianna Dougherty RN - 08/20/2024 8:00 AM EST Wound Management Treatment Plan: Nurse consult visit 08/20/2024 Wound Location(s): Abdomen HOW TO CARE FOR YOUR WOUND The following should be performed Daily and as needed. STEP 1: Cleanse wound with Soap and water, rinse well, and pat dry. STEP 2: Pack with 1/4 inch Iodoform packing leaving a small tail. Use 1 piece. STEP 3: Cover wound with ABD (Abdominal) dressing ACTIVITY: Avoid direct pressure to wound(s) at all times NUTRITION: High protein diet and Multivitamin with minerals daily SKIN CARE: May use heating pad or warm washcloth to abdomen to assist with alleviating redness and swelling. Length Width Depth Wound drainage Type Description moderate Serosanginous; Collins Collins documented in this encounter [facility] 08-19-2024 Obstetrics Note This note was copied from a baby's chart. Met with mother at infants bedside. States pumping every 2-3 hours and getting 30-40ml. Changed to using 22.5 mm from 18 mm flanges with increase in comfort. Enc skin to skin and putting baby to breast. No questions or concerns at this time. [facility] 08-19-2024 Miscellaneous Notes Formattin g of this note might be different from the original. This note was copied from a baby's chart. Met with mother at infants bedside. States pumping every 2-3 hours and getting 30-40ml. Changed to using 22.5 mm from 18 mm flanges with increase in comfort. Enc skin to skin and putting baby to breast. No questions or concerns at this time. documented in this encounter [facility] 08-19-2024 History of Presen t illness Narrative Patient here for dressing change in clinic today. Vital signs completed. Wound cleansed with wound cleanser. Packed with 1/4 iodoform and covered with ABD. Pt expressed some discomfort with dressing change only but tolerated well. Upon leaving, patient did not express any further discomfort. Spouse present in room. documented in this encounter [facility] 08-19-2024 Instructions Daja Farah RN - 08/19/2024 8:00 AM EST documented in this encounter [facility] 08-18-2024 History of Presen t illness Narrative Patient here for dressing change in clinic today. VS completed. Wound cleansed with wound cleanser. Packed with 1/4 iodoform and covered with ABD. Pt expressed some discomfort with dressing change only but tolerated well. Upon leaving, patient did not express any further discomfort. Spouse present in room. documented in this encounter [facility] 08-18-2024 Instructions Brianna Dougherty RN - 08/18/2024 8:00 AM EST Wound Management Treatment Plan: Nurse consult visit 08/18/2024 Wound Location(s): Abdomen HOW TO CARE FOR YOUR WOUND The following should be performed Daily and as needed. STEP 1: Cleanse wound with Soap and water, rinse well, and pat dry. STEP 2: Pack with 1/4 inch Iodoform packing leaving a small tail. Use 1 piece. STEP 3: Cover wound with ABD (Abdominal) dressing ACTIVITY: Avoid direct pressure to wound(s) at all times NUTRITION: High protein diet and Multivitamin with minerals daily SKIN CARE: May use heating pad or warm washcloth to abdomen to assist with alleviating redness and swelling. Length Width Depth Wound drainage Type Description moderate Serosanginous; Collins Collins documented in this encounter [facility] 08-17-2024 History of Presen t illness Narrative Patient here in clinic today for wound check. Wound is from a on 08/05/2024. Images from the original note were not included. Wound Care Progress Note Patient: Barney Orosco Date of : 1995 Chief Compliant: Nonhealing surgical wounds New patient evaluation SUBJECTIVE/HPI: Barney is a 29 y.o. female who presents to [facility] for evaluation of 1 ulcer(s) on the transverse lower abdomen. Patient established with wound clinic on 08/17/2024. Current daily wound care includes: gently packed with Iodoform gauze. Patient delivered at 2 weeks gestation via section. Baby remain in NICU. Mother was discharged 08/07/2024. Shortly after discharged developed fever, chills. Presented to the ED with fever of 101, tachycardia,warmth and erythema of abdomen. Patient underwent bedside I& d and received IV antibiotics. Patient currently is residing at the [facility] while the baby is hospitalized. Patient's chart was reviewed for all available supporting documentation, laboratory results and radiographic examination. Measurable wound changes: new wound evaluation Patient accompanied by:spouse, patient is ambulatory Nutritional screen shows patient does not take in three servings of protein per day. Patient does deny fever, chills, sweats, or other signs of infection. 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, antepartum Poor growth affecting management of mother in third trimester Separation of chorion and amnion membranes, antepartum Amniotic band, third trimester, fetus 1 Cellulitis, unspecified cellulitis site Wound dehiscence, , condition Wound infection following section, Past Medical History: Diagnosis Date Anemia PCOS (polycystic ovarian syndrome) Pulmonary embolism ([facility]) 2014 Past Surgical History: Procedure Laterality Date N/A 08/05/2024 Performed by Robert Doty MD at [facility] OR WISDOM TOOTH EXTRACTION Current Outpatient Medications Medication Sig Dispense Refill acetaminophen (TYLENOL EXTRA STRENGTH) 500 mg tablet Take 2 tablets (1,000 mg total) by mouth every 8 (eight) hours. 30 tablet 0 amoxicillin (AMOXIL) 875 mg tablet Take 1 tablet (875 mg total) by mouth every 12 (twelve) hours for 5 days. 10 tablet 0 docusate sodium (COLACE) 100 mg capsule Take 1 capsule (100 mg total) by mouth in the morning and 1 capsule (100 mg total) before bedtime. 30 capsule 0 enoxaparin (LOVENOX) 40 mg/0.4 mL syringe Inject 0.4 mL (40 mg total) under the skin in the morning. 12 mL 6 ibuprofen (MOTRIN) 800 mg tablet Take 1 tablet (800 mg total) by mouth every 8 (eight) hours. 30 tablet 0 25/iron fum/folic/dha (-1 ORAL) Take 1 tablet by mouth in the morning. sertraline (ZOLOFT) 25 mg tablet Take 1 tablet (25 mg total) by mouth in the morning. No current facility-administered medications for this visit. Allergies Allergen Reactions [facility] Sodium Chloride [Sodium Chloride] Cefprozil Hives The following portions of the patient's history were reviewed and updated as appropriate: allergies, current medications, past family history, past medical history, past social history, past surgical history, problem list, and medication reconciliation was completed including current medication and post discharge medication. Pain Scale: Pain Scale 0/10: 4 Review of Systems Constitutional: Negative. Negative for appetite change, chills and fever. HENT: Negative. Negative for trouble swallowing. Eyes: Negative. Respiratory: Negative. Negative for cough, shortness of breath and stridor. Cardiovascular: Negative. Negative for chest pain, palpitations and leg swelling. Gastrointestinal: Negative. Negative for abdominal distention, abdominal pain, nausea and vomiting. Genitourinary: Negative. Negative for dysuria, frequency and urgency. Skin: Positive for color change and wound. Neurological: Negative for weakness and numbness. Objective: Vitals: 08/17/24 1313 BP: 130/72 Pulse: 88 Resp: 16 Temp: 36.6 C (97.8 F) Physical Exam Vitals and nursing note reviewed. Constitutional: Appearance: She is well-developed. HENT: Head: Normocephalic and atraumatic. Cardiovascular: Rate and Rhythm: Normal rate and regular rhythm. Heart sounds: No murmur heard. No friction rub. Pulmonary: Effort: No respiratory distress. Breath sounds: Normal breath sounds. Abdominal: General: Bowel sounds are normal. Palpations: Abdomen is soft. Musculoskeletal: General: Normal range of motion. Cervical back: Normal range of motion. Skin: General: Skin is warm and dry. Neurological: Mental Status: She is alert and oriented to person, place, and time. Wound Assessment Wound 08/17/24 1 Incision Abdomen Mid;Lower (Active) Wound Image 08/17/24 130 Site Assessment Bleeding;Red;Painful 08/17/241308 Sushma-wound Assessment Blanchable erythema;Red;Painful;[place] 08/17/24 130 Wound Length (cm) 0.5 cm 08/17/241308 Wound Width (cm) 1.2 cm 08/17/24 130 Wound Surface Area (cm^2) 0.6 cm^2 08/17/24 130 Wound Depth (cm) 2.4 cm 08/17/24 130 Wound Volume (cm^3) 1.44 cm^3 08/17/24 130 Drainage Description Serosanguineous;Collins 08/17/241308 Drainage Amount Moderate 08/17/24 130 Treatments Cleansed with;Wound cleanser 08/17/241308 Dressing Type Packing lodoform;Abdominal dressing 08/17/241308 Dressing Changed New 08/17/241308 Dressing Status Clean;Dry;Intact 08/17/241308 Wound Bed Granulation (%) 100% 08/17/241308 Tunneling 1 (cm) 4.7 cm 08/17/241308 Tunneling 1 Clock Position of Wound 11 o'clock 08/17/241308 Tunneling 2 (cm) 3.6 08/17/241308 Tunneling 2 Clock Position of Wound 1 o'clock 08/17/241308 Assessment/Plan/Education: 1. Wound infection following section, 2. Wound dehiscence, , condition Wash mild soap and water Gently pack with Iodoform gauze Cover with dry dressing of comfort Change daily Continue ATB as prescribed. Patient instructed in surgical wound care to abdomen. Short term goal: medical compliance manager intermediate goal: wound closure Patient verbalize understanding of treatment regimen and the importance of adherence. Follow up in wound clinic in 1 week Instructed to contact wound clinic, PCP or ER should symptoms worsen. The patient was taught to watch for S/S of infection (redness, pus, pain, increased swelling, chills or fever) and to call the PCP or wound care clinic if such occurs. The patient was educated on offloading the area by avoiding direct pressure to the wound bed. Education as well as the pathophysiology of the disease process was provided on infection, edema, necrotic tissue and its relationship to nonhealing wounds. Education was also provided on treatment plan. Patient verbalized understanding. Total time spent was 25 minutes: Preparing to see the patient (e.g., review of tests) Obtaining and/or reviewing separately obtained history Performing a medically appropriate examination and/or evaluation Counseling and educating the patient/family/caregiver Ordering medications, tests, or procedures Documenting clinical information in the electronic or other health record - JOSIE HOLBROOK 08/17/24 1:52 PM Renae Stafford APRN, ABHI, CWS, SABRINA [facility]: [phone] JOSIE Holbrook 08/17/24 1401 documented in this encounter [facility] 08-17-2024 Instructions Brianna Dougherty RN - 08/17/2024 1:20 PM EST Wound Management Treatment Plan Wound Location(s): Abdomen HOW TO CARE FOR YOUR WOUND The following should be performed Daily and as needed. STEP 1: Cleanse wound with Soap and water, rinse well, and pat dry. STEP 2: Pack with 1/4 inch Iodoform packing leaving a small tail. Use 1 piece. STEP 3: Cover wound with ABD (Abdominal) dressing ACTIVITY: Avoid direct pressure to wound(s) at all times NUTRITION: High protein diet and Multivitamin with minerals daily SKIN CARE: May use heating pad or warm washcloth to abdomen to assist with alleviating redness and swelling. Length Width Depth Wound 08/17/24 1 Incision Abdomen Mid;Lower-Wound Length (cm): 0.5 cm Wound 08/17/24 1 Incision Abdomen Mid;Lower-Wound Width (cm): 1.2 cm Wound 08/17/24 1 Incision Abdomen Mid;Lower-Wound Depth (cm): 3 cm Wound drainage Type Description moderate Serosanginous Collins documented in this encounter [facility] 08-17-2024 Miscellaneous Notes Formattin g of this note might be different from the original. This note was copied from a baby's chart. Met with mom at infant's bedside. States pumping continues to go well with stable supply and no complaints of pain or breakdown. No immediate questions or concerns, encouraged to call out for any other assistance. Pumping Guidelines: Pump every 2-3 hours for 15-20 minutes each time Pump 8-12 times in 24 hours Clean parts in warm, soapy water; rinse and air dry after every use Sanitize parts once a day documented in this encounter [facility] 08-17-2024 Obstetrics Note This note was copied from a baby's chart. Met with mom at 's bedside. States pumping continues to go well with stable supply and no complaints of pain or breakdown. No immediate questions or concerns, encouraged to call out for any other assistance. Pumping Guidelines: Pump every 2-3 hours for 15-20 minutes each time Pump 8-12 times in 24 hours Clean parts in warm, soapy water; rinse and air dry after every use Sanitize parts once a day [facility] 08-16-2024 Miscellaneous Notes Formattin g of this note might be different from the original. This note was copied from a baby's chart. Met with mom at infant's bedside. Continues routine pumping, producing about 40mls each time with no complaints of pain or breakdown. Mom interested in putting to breast. Shown mom both cross cradle and football holds. Mom positioned well in football hold. Using nipple to nose technique , elicited mouth to open wide with brief suckle burst. Infant tires at breast easily, educated mom on relatching when she becomes disorganized. Discussed with mom limiting breast attempts to about 5-10 minutes so as not to tire and to keep breast a happy place. After about 10 minutes, infant becomes increasingly fussy, swaddled and offered a bottle. Encouraged mom to continue offering breast when she is here during care times and infant is showing hunger cues. As she practices more and infant gains stamina, she will be able to latch for longer periods of time. No further questions or concerns, encouraged to call out for any other assistance. documented in this encounter [facility] 08-16-2024 Obstetrics Note This note was copied from a baby's chart. Met with mom at infant's bedside. Continues routine pumping, producing about 40mls each time with no complaints of pain or breakdown. Mom interested in putting infant to breast. Shown mom both cross cradle and football holds. Mom positioned well in football hold. Using nipple to nose technique , elicited mouth to open wide with brief suckle burst. tires at breast easily, educated mom on relatching infant when she becomes disorganized. Discussed with mom limiting breast attempts to about 5-10 minutes so as not to tire and to keep breast a happy place. After about 10 minutes, infant becomes increasingly fussy, swaddled and offered a bottle. Encouraged mom to continue offering breast when she is here during care times and is showing hunger cues. As she practices more and infant gains stamina, she will be able to latch for longer periods of time. No further questions or concerns, encouraged to call out for any other assistance. [facility] 08-16-2024 History of Presen t illness Narrative PP visit P0101 s/p PLTCS 08.05.24 due to persistent decelerations following admission due to findings of amnion chorion separation and concern of umbilical cord tethering on ultrasound with severe growth restriction. Patient was readmitted over the weekend due to wound infection. She underwent bedside I&D and received IV antibiotics. Patient was discharged yesterday on oral antibiotics with wound packing supplies. EPDS: Depression: Low Risk (08/16/2024) [place] Depression Scale Last EPDS Total Score: 2 Last EPDS Self Harm Result: Never Feeding: breast Vitals: 08/16/24 0812 BP: 126/82 Temp: 36.8 C (98.2 F) Weight: 93.2 kg (205 lb 6.4 oz) Physical Exam Constitutional: Appearance: Normal appearance. She is obese. HENT: Head: Normocephalic and atraumatic. Right Ear: External ear normal. Left Ear: External ear normal. Nose: Nose normal. Eyes: Extraocular Movements: Extraocular movements intact. Cardiovascular: Rate and Rhythm: Normal rate. Pulmonary: Effort: Pulmonary effort is normal. No respiratory distress. Abdominal: General: There is no distension. Palpations: Abdomen is soft. Tenderness: There is no abdominal tenderness. There is no guarding or rebound. Comments: Incision with approximately 0.5cm opening in center -- packing removed and changed, no drainage able to be expressed Musculoskeletal: General: Normal range of motion. Cervical back: Normal range of motion. Neurological: General: No focal deficit present. Mental Status: She is alert and oriented to person, place, and time. Skin: General: Skin is warm and dry. Psychiatric: Mood and Affect: Mood normal. Thought Content: Thought content normal. Vitals and nursing note reviewed. Plan Postoperative care - wound care referral placed - warnings given - continue antibiotics Acute blood loss anemia - continue po iron - repeat CBC at PP visit RTC 1w Jocelin Grissom MD Note to patient: The Cures Act makes [...] and the clinical opinion of the practitioner. Seen today for PP visit following C/S 08/05 Pt states was admitted Friday for infection, started on ATB in patient States less painful now, has wound packing supplies at visit Pt states vaginal bleeding is minimal Pt is currently , breasts are doing well Baby in NICU doing well, pt currently at [facility] house PP IMS done. EPDS:2 BC: undecided documented in this encounter [facility] 08-15-2024 Miscellaneous Notes Formattin g of this note is different from the original. This note was copied from a baby's chart. Met with mother at infant bedside. States pumping is going well and she is getting 30-40ml Q3. No pain noted with pumping. Encouraged her to call out for LC with any questions or concerns. Flange Fit A flange fits correctly when: your nipple is centered in the tube no parts of your nipple rub against the sides little or no areola is pulled in when the pump is turned on On the other hand, a flange is not fitting properly when: you experience nipple pain during or after the pumping session you notice your nipple is becoming discolored, chapped, or otherwise injured In addition to breast and nipple pain, using the wrong sized pump flange can negatively impact the amount of milk you are able to get out of your breast. A flange that fits too tightly will cause the breast to be constricted in ways that can lead to clogged/blogged milk ducts. (When ducts are clogged, they don t release milk and new milk isn t formed as quickly.) On the other hand, a flange that fits too loosely won t provide adequate suction. This can also lead to milk being left in the breast and lower milk production in the future. Pain and infection can develop from this as well. documented in this encounter [facility] 08-15-2024 Obstetrics Note This note was copied from a baby's chart. Met with mother at bedside. States pumping is going well and she is getting 30-40ml Q3. No pain noted with pumping. Encouraged her to call out for LC with any questions or concerns. Flange Fit A flange fits correctly when: your nipple is centered in the tube no parts of your nipple rub against the sides little or no areola is pulled in when the pump is turned on On the other hand, a flange is not fitting properly when: you experience nipple pain during or after the pumping session you notice your nipple is becoming discolored, chapped, or otherwise injured In addition to breast and nipple pain, using the wrong sized pump flange can negatively impact the amount of milk you are able to get out of your breast. A flange that fits too tightly will cause the breast to be constricted in ways that can lead to clogged/blogged milk ducts. (When ducts are clogged, they don t release milk and new milk isn t formed as quickly.) On the other hand, a flange that fits too loosely won t provide adequate suction. This can also lead to milk being left in the breast and lower milk production in the future. Pain and infection can develop from this as well. [facility] 08-12-2024 Miscellaneous Notes Formattin g of this note might be different from the original. This note was copied from a baby's chart. Met with mom at infant's bedside. States that pumping continues to go well with stable supply, she is getting about 20mls every three hours and denies pain or breakdown. No immediate questions or concerns, encouraged to call out for any other assistance. documented in this encounter [facility] 08-12-2024 Obstetrics Note This note was copied from a baby's chart. Met with mom at infant's bedside. States that pumping continues to go well with stable supply, she is getting about 20mls every three hours and denies pain or breakdown. No immediate questions or concerns, encouraged to call out for any other assistance. [facility] 08-10-2024 Miscellaneous Notes Formattin g of this note might be different from the original. This note was copied from a baby's chart. Met with mom at 's bedside, states pumping continues to go well and supply remains steady with no pain or breakdown. No immediate questions or concerns, encouraged to call out for any other assistance. documented in this encounter [facility] 08-10-2024 Obstetrics Note This note was copied from a baby's chart. Met with mom at infant's bedside, states pumping continues to go well and supply remains steady with no pain or breakdown. No immediate questions or concerns, encouraged to call out for any other assistance. [facility] 08-09-2024 Miscellaneous Notes Formattin g of this note might be different from the original. Discharge Call Back: Day 4-5 Affirms feels milk has come in, pumping every 2-3 hours around the clock with a return of 20 ML/pump. States baby is in the NICU, she spoke with [facility] from today. Denies persistent lumps, bumps, red or hot spots on breasts. Advised to be aware that when your milk comes in you may experience significant breast fullness, this is normal. Advised to use cold packs 20 minutes on, 20 minutes off throughout the day and night. Advised to also consider alternating Motrin and Tylenol around the clock. Breast fullness and discomfort should resolve as your supply down regulates within 2-3 days. Voices understanding of education provided. Denies questions or concerns. Warmline number provided; [phone]. Advised advice offered over the phone and appointments available at two locations: [place] in [facility] and [place] in the [facility] building across the street from [facility]. Encouraged outpatient OV upon discharge from NICU. Scheduled today with instructions to call to cancel if baby hasn't been discharged at that point. Scheduled office visit for : 09/01 8:30 AM See latoya for details. Advised of the following: [place] location: [address] [place], [place]. Please arrive 5-10 minutes early to get checked in. Go directly to the suite. There is no Central Registration in this building. Please bring baby hungry, but not starving, if possible. Please bring what you need for baby to feed (bottle, pumped milk, formula, breast pump, etc). You may bring one support person over the age of 18 if you wish. There are two appointments scheduled but you will be seen together. Arrive at your scheduled OV time, not baby's. Intake forms will be assigned to you via Sc[employer]be. Please fill these out prior to your OV(office visit) so that baby's feed isn't delayed upon arrival to OV. Check insurance coverage for specialists as our new model assures you are seen by an upper level provider: a book jogger or a nurse practitioner who is also a certified mainframe consultant, unless we specifically advise you that you will be seeing a nurse mainframe consultant.Therefore, if your insurance policy requires a co-pay for specialist visits, there will be one collected for both mom and baby. Voiced understanding. Denies questions/concerns. Please reach out on the Warmline at [phone], with any questions to reschedule/cancel appointment if needed. Voiced understanding. Denies further needs. Voices understanding. Denies further needs. documented in this encounter [facility] 08-09-2024 Telephone encount er Note Discharge Call Back: Day 4-5 Affirms feels milk has come in, pumping every 2-3 hours around the clock with a return of 20 ML/pump. States baby is in the NICU, she spoke with [facility] from today. Denies persistent lumps, bumps, red or hot spots on breasts. Advised to be aware that when your milk comes in you may experience significant breast fullness, this is normal. Advised to use cold packs 20 minutes on, 20 minutes off throughout the day and night. Advised to also consider alternating Motrin and Tylenol around the clock. Breast fullness and discomfort should resolve as your supply down regulates within 2-3 days. Voices understanding of education provided. Denies questions or concerns. Warmline number provided; [phone]. Advised advice offered over the phone and appointments available at two locations: [place] in [facility] and [place] in the [facility] building across the street from [facility]. Encouraged outpatient OV upon discharge from NICU. Scheduled today with instructions to call to cancel if baby hasn't been discharged at that point. Scheduled office visit for : 09/01 8:30 AM See [facility] for details. Advised of the following: [place] location: [facility] [address] [place] [address]. Please arrive 5-10 minutes early to get checked in. Go directly to the suite. There is no Central Registration in this building. Please bring baby hungry, but not starving, if possible. Please bring what you need for baby to feed (bottle, pumped milk, formula, breast pump, etc). You may bring one support person over the age of 18 if you wish. There are two appointments scheduled but you will be seen together. Arrive at your scheduled OV time, not baby's. Intake forms will be assigned to you via Scrybe. Please fill these out prior to your OV(office visit) so that baby's feed isn't delayed upon arrival to OV. Check insurance coverage for specialists as our new model assures you are seen by an upper level provider: a book jogger or a nurse practitioner who is also a certified mainframe consultant, unless we specifically advise you that you will be seeing a nurse mainframe consultant.Therefore, if your insurance policy requires a co-pay for specialist visits, there will be one collected for both mom and baby. Voiced understanding. Denies questions/concerns. Please reach out on the Warmline at [phone], with any questions to reschedule/cancel appointment if needed. Voiced understanding. Denies further needs. Voices understanding. Denies further needs. [facility] 08-09-2024 Miscellaneous Notes Formattin g of this note might be different from the original. This note was copied from a baby's chart. Met with mom at infant's bedside. States pumping is going well with increasing supply, getting about 10-20mls every three to four hours. Mom is beginning to feel some firmness to breasts as milk comes in more. Educated on massage while pumping, lymphatic massage to reabsorb extra fluids if she is having pain in between pumps. No further questions or concerns, encouraged to call out for any other assistance. documented in this encounter [facility] 08-09-2024 Obstetrics Note This note was copied from a baby's chart. Met with mom at 's bedside. States pumping is going well with increasing supply, getting about 10-20mls every three to four hours. Mom is beginning to feel some firmness to breasts as milk comes in more. Educated on massage while pumping, lymphatic massage to reabsorb extra fluids if she is having pain in between pumps. No further questions or concerns, encouraged to call out for any other assistance. [facility] [employer] [facility] 08-03-2024 Miscellaneous Notes Formattin g of this note might be different from the original. Called to office per Dr. Alcantara to update on recommendation of admission to inpatient for abnormal findings on US. No answer, left VM with recommendations for patient without dx on unsecured line. documented in this encounter [facility] 08-03-[facility]24 Telephone encount er Note Called to office per Dr. Alcantara to update on recommendation of admission to inpatient for abnormal findings on US. No answer, left VM with recommendations for patient without dx on unsecured line. [facility] 08-03-2024 History of Presen t illness Narrative Video Visit via Real-time Synchronous Audiovisual Provider Location: [facility], MATERNAL- MEDICINE [address] [place] [address], [address] [place] [address] Patient Location:[facility] Patient Location Automotive Finance Manager: None Video Visit Consent Statement: I discussed [...] that there are some limitations compared to [id number] evaluations. We elected to proceed. REASON FOR TELEHEALTH VISIT: add on chorion amnion separation with band at umbilical card HISTORY OF PRESENT ILLNESS: Barney Orosco is a pleasant 29 y.o. at 33w3d due on Estimated Date of Delivery: 09/18/24. complicated by: Chorion amnion separation on ultrasound today with attachment to the umbilical cord History of bilateral pulmonary embolism at 19 [...] Name private CURRENT MEDICATIONS: Current Outpatient Medications: blood sugar diagnostic (FREESTYLE TEST) strip, Check fingers 4 times daily, fasting and 1 hour postprandials, Disp: 100 strip, Rfl: 0 enoxaparin (LOVENOX) 40 mg/0.4 mL syringe, Inject 0.4 mL (40 mg total) under the skin in the morning. (Patient not taking: Reported on 05/05/2024), Disp: 12 mL, Rfl: 6 lancets 30 gauge misc, abnormal 3hr GTT, impaired glucose testing, Disp: 100 each, Rfl: 1 25/iron fum/folic/dha (-1 ORAL), Take by mouth., [...] Beat is a pleasant 29 y.o. at 33w3d -chorion amnion separation with band attached to the cord -h/o PE, on lovenox -FGR, normal UA Doppler -obesity -impaired glucose tolerance in On ultrasound today chorion amnion separation with the attachment to the umbilical cord. No obstruction of blood flow was seen. I reviewed extensively the findings with the patient. Chorion amnion separation with that is want to the umbilical cord should be treated as an amniotic band to the cord. This can be associated with a unpredictable catastrophic event such as stillbirth. She is at risk of PPROM, tearing of the umbilical cord and placental abruption. The patient presents to labor and delivery hospital for admission corticosteroids for lung maturity recommended Continuous heart rate monitoring and NICU consultation Delivery after completion of corticosteroids unless there is a concern with the heart rate tracing. Repeat ultrasound tomorrow again to re-evaluate cord and chorion amnion separation. Discussed with the patient recommendation for my primary as delivery with the chorion amnion separation that is attached with the umbilical cord can be associated with a high-risk of demise at the time of labor Please hold her Lovenox as she is at risk of delivery Please monitor her blood glucose Feed meal by meal Of note plan of care can change pending clinical course Dr. Grissom notified. Dr. Mahajan notified. Dr. Morgan notified pit worker power shovel Amanda notified Donna Alcantara MD, FACOG (she/hers) Maternal- Medicine [facility] [address] [place] [address] This document was created with ioSafe technology. Though I make every effort to review the dictation as it is transcribed, on occasion the spoken word can be misinterpreted by the technology leading to inappropriate words, phrases, or sentences. This note is addressed to the requesting provider as a consultation for clinical guidance. Specific medical abbreviations are occasionally used and those are generally approved by the [place]?Board of?Obstetrics and?Gynecology?as well as?[place] s abbreviations. The above plan of care was based solely on the diagnoses for which a consultation was requested. ?More frequent testing may be indicated based on her other medical/obstetrical conditions. The management of other or medical conditions is beyond the scope of requested consultation and will continue to be followed by the primary technology applications teacher or primary care provider. Note to patient: The Century Cures Act makes medical notes like [...] and the clinical opinion of the practitioner. [facility] Miscellaneous Notes Formattin g of this note might be different from the original. Called and spoke with patient, notified her that Dr Leonard would like patient to continue checking blood sugars 4times daily and sending in logs and also wants her to go to [facility] diabetic ed, patient verbalized understanding and was transferred to scheduling to make appointment. documented in this encounter [facility] 07-28-2024 Telephone encount er Note Called and spoke with patient, notified her that Dr Leonard would like patient to continue checking blood sugars 4times daily and sending in logs and also wants her to go to [facility] diabetic ed, patient verbalized understanding and was transferred to scheduling to make appointment. [facility] 07-27-2024 History of Presen t illness Narrative Reason for Appointment: Patient ID: Barney Orosco is a 29 y.o. female who presents for Routine Visit Patient presents today for Return OB appointment. MEDICATIONS Current Outpatient Medications Medication Instructions Enoxaparin Sodium 40 mg, Subcutaneous, Daily Gwvmnhup-Djx-Hj-FA ( 1 + IRON PO) Oral sertraline [...] reviewed. Vitals: Estimated body mass index is 37.56 kg/m as calculated from the following: Height as of 02/16/24: 5' 4 . Weight as of this encounter: 218 lb 12.8 oz. BP: 122/76 Patient's last menstrual period was 12/13/2023. ASSESSMENT & PLAN ICD-10-CM 1. 32 weeks gestation of Z3A.32 2. Third trimester Z34.93 3. growth restriction antepartum O36.5990 US umbilical artery doppler Return OB: Patient presents today for a routine obstetrics appointment. Patient is currently 32w3d . Patient states she is doing well but has complaints of being tired due to current . Patient has verbalizes frequent movement. labor precautions was discussed/given and patient was instructed to perform kick counts three times a day. Patient to continue with MFM and has follow up next week. Patient will continue with NST and BPP Orders Placed This Encounter Procedures US umbilical artery doppler Follow Up: Patient is to return to office in 2 week for routine OB appointment. Documented by CARO Singh on behalf of: CARO Singh documented in this encounter [facility] 07-16-2024 History of Presen t illness Narrative Video Visit via Real-time Synchronous Audiovisual Provider Location: [facility] AT [address] [phone] Patient Location: Other Patient Location Automotive Finance Manager: None Video Visit Consent Statement: I discussed [...] that there are some limitations compared to ixei-jd-ocjr evaluations. We elected to proceed. REASON FOR TELEHEALTH VISIT: History of PE, Subchorionic hematoma, FGR HISTORY OF PRESENT ILLNESS: Barney Orosco is a pleasant 29 y.o. at 30w6d [...] TESTS AND ULTRASOUND REPORTS: Referral records and [facility] chart were reviewed Pertinent Ultrasound findings are see formal ultrasound report. PHYSICAL EXAMINATION: LMP 12/13/2023 telehealth visit Well-appearing in no distress. Respirations not labored, speaking comfortably in full sentences OVERALL ASSESSMENT -Barney Orosco is a pleasant 29 y.o. at 30w6d [...] GTT. Patient to send in logs to [facility]. Supplies ordered today. Continue serial growth ultrasounds every 4 weeks through [facility] Continue umbilical artery Dopplers every 2 weeks, through [facility] Recommend ANFS: NST and NICHOLAS weekly starting [...] comorbidities: 34 weeks Delivery method preferred vaginal. [place] C/S for usual obstetrical indications Consider steroids if delivery before 37 weeks. Consider neuro magnesium if delivery before 32 weeks Recommend restarting Lovenox in the period once hemodynamically stable and safe from a anesthesia standpoint, to be continued through 6 weeks DISPOSITION: At this point the patient is in complete care of her technology applications teacher. Patient does have ultrasound and office visit scheduled with us. Thank you for allowing me to participate in the care of Barney Orosco. If there any questions please do not hesitate to contact us. Theodore Leonard MD Maternal- Medicine [facility] [address] [place] [address] [facility], the CDC, and other organizations representing maternal and public health professionals recommend that , , and lactating people and those considering receive the COVID-19 vaccination. Vaccination is the best method to reduce maternal and complications of SARS-CoV-2 infection. This document was created with ioSafe technology. Though I make every effort to review the dictation as it is transcribed, on occasion the spoken word can be misinterpreted by the technology leading to inappropriate words, phrases, or sentences. This note is addressed to the requesting provider as a consultation for clinical guidance. Specific medical abbreviations are occasionally used and those are generally approved by the [place]?Board of?Obstetrics and?Gynecology?as well as?Karel giang abbreviations. The above plan of care was based solely on the diagnoses for which a consultation was requested. ?More frequent testing may be indicated based on her other medical/obstetrical conditions. The management of other or medical conditions is beyond the scope of requested consultation and will continue to be followed by the primary technology applications teacher or primary care provider. Note to patient: [...] procedures Referring and communicating with other health attending ambulatory care (not separately reported) Documenting clinical information in the electronic or other health record documented in this encounter [facility] 07-12-2024 History of Presen t illness Narrative Reason for Appointment: Patient ID: Barney Orosco is a 29 y.o. female who presents for Routine Visit Patient presents today for Return OB appointment. MEDICATIONS Current Outpatient Medications Medication Instructions Enoxaparin Sodium 40 mg, Subcutaneous, Daily Akcllswk-Sys-Xq-FA ( 1 + IRON PO) Oral sertraline [...] Relation Name Age of Onset Hypertension Mother Rodrigopeggy Jose Breast cancer Mother Caden Garcia Hypertension Father Louis Garcia Diabetes Father Louis Garcia Heart disease Father Louis Garcia Cancer Maternal Grandmother Cancer Maternal Grandfather Cisco Blackwood Heart disease Paternal Grandfather SURGICAL HISTORY Past [...] of: CARO Singh documented in this encounter [facility] 06-30-2024 History of Presen t illness Narrative Reason for Appointment: Patient ID: Barney Orosco is a 29 y.o. female who presents for Routine Visit Patient presents today for Return OB appointment. MEDICATIONS Current Outpatient Medications Medication Instructions Enoxaparin Sodium 40 mg, Subcutaneous, Daily Ojqqhdrq-Slh-Iz-FA ( 1 + IRON PO) Oral sertraline [...] of: CARO Singh documented in this encounter [facility] 06-02-2024 History of Presen t illness Narrative Reason for Appointment: Patient ID: Barney Orosco is a 29 y.o. female who presents for Routine Visit Patient presents today for Return OB appointment. MEDICATIONS Current Outpatient Medications Medication Instructions Enoxaparin Sodium 40 mg, Subcutaneous, Daily Yxlkscah-Ium-Gs-FA ( 1 + IRON PO) Oral sertraline [...] Cancer Maternal Grandmother Cancer Maternal Grandfather Cisco Blackwood Heart disease Paternal Grandfather SURGICAL HISTORY Past [...] Constitutional: Appearance: Normal appearance. She is well-developed. Cardiovascular: Rate and Rhythm: Normal rate and [...] nursing note reviewed. Exam conducted with a dental laboratory assistant present. Vitals: Estimated body mass index is 36.41 kg/m as calculated from the following: Height as of 02/16/24: 5' 4 . Weight as of this encounter: 212 lb 1.9 oz. BP: 114/74 Patient's last menstrual period was 12/13/2023. ASSESSMENT & PLAN ICD-10-CM 1. 24 weeks gestation of Z3A.24 POCT urinalysis dipstick manually resulted 2. growth restriction antepartum O36.5990 3. Diabetes mellitus screening Z13.1 CBC Glucose tolerance, 1 hour Pt doing well with no complaints. Reviewed MFM findings concurrent with FGR. Pt seeing MFM every two weeks at this stage for dopplers. Pt to see MFM for growth in 4 weeks. Pt given glucose test. Pt to return in 4 weeks for scheduled OB appt. Documented by Lizeth Macario LPN on behalf of: Sree Francisco D.O. documented in this encounter [facility] 06-01-2024 History of Presen t illness Narrative Video Visit via Real-time Synchronous Audiovisual Provider Location: [facility] AT [address] [phone] Patient Location: Other Patient Location Automotive Finance Manager: None Video Visit Consent Statement: I discussed [...] that there are some limitations compared to jnix-gd-bydu evaluations. We elected to proceed. REASON FOR TELEHEALTH VISIT: History of PE, Subchorionic hematoma, FGR HISTORY OF PRESENT ILLNESS: Barney Orosco is a pleasant 29 y.o. at 24w3d due on Estimated Date of Delivery: 09/18/24. [...] of a DVT in her father. Subchorionic hematomas in this , 2 significant hematomas earlier in with vaginal bleeding. Hematomas have resolved on imaging. No recurrent episode of VB since end of February. Blood type A positive. growth restriction diagnosed at 16wk GA, initially EFW 2.2%, follow up 7%. She is well dated with an LMP equals 8 week ultrasound. UA Doppler within normal limits. Obesity, BMI 36 Today, the patient is doing well. She denies SOB or chest pain. She denies contractions, vaginal bleeding, leaking of fluid. Aneuploidy screening: low risk cell free DNA Carrier screening: CURRENT MEDICATIONS: Current Outpatient Medications: enoxaparin (LOVENOX) [...] TESTS AND ULTRASOUND REPORTS: Referral records and [facility] chart were reviewed Pertinent Ultrasound findings are see formal ultrasound report. PHYSICAL EXAMINATION: LMP 12/13/2023 Well-appearing in no distress. Respirations not labored, speaking comfortably in full sentences OVERALL ASSESSMENT -Barney Orosco is a pleasant 29 y.o. at 24w3d -h/o PE, on lovenox -subchorionic hematoma, resolved -FGR, normal UA Doppler COUNSELING Reviewed precautions including recurrent vaginal bleeding. Of note, patient is Rh(D) positive. SUMMARY/RECOMMENDATION: Reviewed signs symptoms of VTE Continue Lovenox 40 mg daily. Testing for inherited thrombophilias (prothrombin gene mutation, antithrombin III deficiency) and acquired thrombophilias (antiphospholipid antibody syndrome), please complete testinIf inherited thrombophilia testing results positive, would recommend higher dosing of anticoagulation with therapeutic dosing during . Complete level 2 anatomy ultrasound is without e/o gross structural abnormalities. Continue serial growth ultrasounds every 4 weeks through [facility] Continue umbilical artery Dopplers every 2 weeks, through [facility] Follow up scheduled in [facility] scheduled in 6-8 weeks DISPOSITION: At this point the patient is in complete care of her technology applications teacher. Patient does have ultrasound and office visit scheduled with us. Thank you for allowing me to participate in the care of Barney Orosco. If there any questions please do not hesitate to contact us. Theodore Leonard MD Maternal- Medicine [facility] [address] [facility] [address] [place] [address] [facility], the CDC, and other organizations representing maternal and public health professionals recommend that , , and lactating people and those considering receive the COVID-19 vaccination. Vaccination is the best method to reduce maternal and complications of SARS-CoV-2 infection. This document was created with ioSafe technology. Though I make every effort to review the dictation as it is transcribed, on occasion the spoken word can be misinterpreted by the technology leading to inappropriate words, phrases, or sentences. This note is addressed to the requesting provider as a consultation for clinical guidance. Specific medical abbreviations are occasionally used and those are generally approved by the [place]?Board of?Obstetrics and?Gynecology?as well as?Karel s abbreviations. The above plan of care was based solely on the diagnoses for which a consultation was requested. ?More frequent testing may be indicated based on her other medical/obstetrical conditions. The management of other or medical conditions is beyond the scope of requested consultation and will continue to be followed by the primary technology applications teacher or primary care provider. Note to patient: The Century Cures Act makes medical notes like [...] and the clinical opinion of the practitioner. documented in this encounter [facility] 05-05-2024 History of Presen t illness Narrative Reason for Appointment: Patient ID: Barney Orosco is a 29 y.o. female who presents for Routine Visit Patient presents today for Return OB appointment. MEDICATIONS Current Outpatient Medications Medication Instructions Yqdiozza-Fux-Nz-FA ( 1 + IRON PO) Oral sertraline [...] Constitutional: Appearance: Normal appearance. She is well-developed. Cardiovascular: Rate and Rhythm: Normal rate and [...] nursing note reviewed. Exam conducted with a dental laboratory assistant present. Vitals: Estimated body mass index is 36.35 kg/m as calculated from the following: Height as of 02/16/24: 5' 4 . Weight as of this encounter: 211 lb 12 oz. BP: 110/72 Patient's last menstrual period was 12/13/2023. ASSESSMENT & PLAN ICD-10-CM 1. Second trimester Z34.92 POCT urinalysis dipstick manually resulted Pt has been seeing MFM - prescribed lovenox to start this evening. Pt to see mfm in 2 weeks. Patient presents today for a routine obstetrics appointment. Patient is currently 20w4d with a Estimated Date of Delivery: 09/18/24. Pt has no complaints at this time. Pt to return in 4 weeks for scheduled OB appt. Documented by Lizeth Macario LPN on behalf of: Sree Francisco DO documented in this encounter [facility] 05-05-2024 Miscellaneous Notes Formattin g of this note might be different from the original. Called patient to update on new video visit, no answer, left VM documented in this encounter [facility] 05-05-2024 Telephone encount er Note Called patient to update on new video visit, no answer, left VM [facility] 05-05-2024 History of Presen t illness Narrative Headache/epigastric pain/blurry vision/swelling? no Cramping/contractions? no Abnormal vaginal discharge? no Spotting or vaginal bleeding? no Loss or gush of fluid like your water may have broken? no Recent ER visits or hospitalizations? no Any concerns that you would like me to mention to the provider today? no REASON FOR TELEMEDICINE VIDEO OFFICE VISIT: Placental hematoma resolves. HISTORY OF PRESENT ILLNESS: Barney Orosco is a pleasant 29 y.o. G 1 P0 at 20w4d due on Estimated Date of Delivery: 09/18/24 . has been complicated with History of bilateral pulmonary embolism at age 19 when patient was on OCPs. Patient was then treated with anticoagulation. Patient is however 2 large subchorionic placental hematomas worsening and therefore Lovenox therapy was not started. On today's ultrasound hematomas have resolved. Patient is cleared to start taking low-dose Lovenox therapy 40 mg subQ daily until delivery and 6 weeks . Small for gestational age fetus. Initial ultrasound showed 2nd percentile which has now improved to 7th percentile however still below the 10th percentile. Will start umbilical artery Dopplers in 2 weeks. Increased BMI. Currently the patient has no complaints. The patient denies nausea, vomiting, abdominal pain, vaginal bleeding, SOB or chest pain. Patient Active Problem List Diagnosis Subchorionic hematoma in second trimester Circumvallate placenta during in second trimester, antepartum Poor growth affecting management of mother in second trimester ALLERGIES: Allergies Allergen Reactions Cefprozil CURRENT MEDICATIONS: Current Outpatient Medications: 25/iron fum/folic/dha (-1 ORAL), Take by mouth., Disp: , Rfl: sertraline (ZOLOFT) 25 mg tablet, Take 1 tablet (25 mg total) by mouth in the morning., Disp: , Rfl: enoxaparin (LOVENOX) 40 mg/0.4 mL syringe, Inject 0.4 mL (40 mg total) under the skin in the morning. (Patient not taking: Reported on 05/05/2024), Disp: 12 mL, Rfl: 6 Past Medical History: Diagnosis Date Anemia PCOS (polycystic ovarian syndrome) Pulmonary embolism ([facility]) 2014 REVIEW OF SYSTEMS: Head and Neck: Negative for any dizziness and headaches. Cardiovascular and Respiratory System: Denies any chest pain, shortness of breath, and coughing. Abdominal and System: Denies any abdominal pain, nausea, vomiting, vaginal bleeding, and vaginal discharge REVIEW OF ULTRASOUND. Pertinent Ultrasound findings are see report. PHYSICAL EXAMINATION: BP 111/73 Pulse 79 LMP 12/13/2023 . Gravid abdomen, Respirations not labored. Normal gait well oriented in time place and person. RECOMMENDATION: 1. Subchorionic hematoma severe resolved. 2. Patient cleared to start taking Lovenox therapy. 3. Patient understands increased risk of premature rupture membranes due to history of subchorionic hematoma. 4. Serial Doppler studies starting at 22 weeks gestation at [facility] office. 5. Will continue follow patient. Thank you for allowing me to participate in [facility]. If there are any questions, please do not hesitate to call me. Sincerely, RYAN MORGAN MD Video Visit via Real-time Synchronous Audiovisual Provider Location: [facility] AT [address] [phone] Patient Location: Other [facility] office. Patient Location Automotive Finance Manager: None Video Visit Consent Statement: I discussed [...] that there are some limitations compared to ozfp-tf-rvuo evaluations. We elected to proceed. documented in this encounter [facility] 04-21-2024 History of Presen t illness Narrative Headache/epigastric pain/blurry vision/swelling? HEADACHES 1X A WEEK- RELIEVED WITH TYLENOL Cramping/contractions? NO Abnormal vaginal discharge? NO Spotting or vaginal bleeding? NO Loss or gush of fluid like your water may have broken? NO Recent ER visits or hospitalizations? NO Any concerns that you would like me to mention to the provider today? NO REASON FOR OFFICE VISIT: History of pulmonary embolism while on OCP HISTORY OF PRESENT ILLNESS: Barney Orosco is a pleasant 29 y.o. G 1 P0 at 18w4d due on Estimated Date of Delivery: 09/18/24 . has been complicated with History of bilateral pulmonary embolism at age 19 when patient was on OCPs. Patient was then treated with anticoagulation. Patient is however 2 large subchorionic placental hematomas worsening and therefore Lovenox therapy was not started. On today's ultrasound hematomas are shrinking in size. Small for gestational age fetus Increased BMI. Currently the patient has no complaints. The patient denies nausea, vomiting, abdominal pain, vaginal bleeding, SOB or chest pain. Patient Active Problem List Diagnosis Subchorionic hematoma in second trimester ALLERGIES: Allergies Allergen Reactions Cefprozil CURRENT MEDICATIONS: Current Outpatient Medications: 25/iron fum/folic/dha (-1 ORAL), Take by mouth., Disp: , Rfl: sertraline (ZOLOFT) 25 mg tablet, Take 1 tablet (25 mg total) by mouth in the morning., Disp: , Rfl: enoxaparin (LOVENOX) 40 mg/0.4 mL syringe, Inject 0.4 mL (40 mg total) under the skin in the morning., Disp: 12 mL, Rfl: 6 Past Medical History: Diagnosis Date Anemia PCOS (polycystic ovarian syndrome) Pulmonary embolism ([facility]) 2014 REVIEW OF SYSTEMS: Head and Neck: Negative for any dizziness and headaches. Cardiovascular and Respiratory System: Denies any chest pain, shortness of breath, and coughing. Abdominal and System: Denies any abdominal pain, nausea, vomiting, vaginal bleeding, and vaginal discharge REVIEW OF ULTRASOUND. Pertinent Ultrasound findings are see report. PHYSICAL EXAMINATION: BP 120/69 Pulse 86 Wt 95.4 kg (210 lb 6.4 oz) LMP 12/13/2023 BMI 36.12 kg/m . Gravid abdomen, Respirations not labored. Normal gait well oriented in time place and person. RECOMMENDATION: 1. Follow-up in 2 weeks for targeted anatomy and re-evaluation of subchorionic hematomas. 2. As long as the hematomas are decreasing in size the patient can start prophylactic dosing of Lovenox therapy 40 mg subQ daily for and 6 weeks after 20 weeks ultrasound 3. A script of Lovenox therapy was called in today. 4. Please see original consultation letter for complete recommendations. 5. Will continue follow the patient. 6. Patient is a candidate for testing due to BMI criteria. Thank you for allowing me to participate in [facility]. If there are any questions, please do not hesitate to call me. Sincerely, RYAN MORGAN MD documented in this encounter [facility] 04-07-2024 History of Presen t illness Narrative Headache/epigastric pain/blurry vision/swelling? No Cramping/contractions? No Abnormal vaginal discharge? No Spotting/vaginal bleeding? No Loss or gush of fluid like your water may have broken? No Do you have cats at home? No Do you change the litter box (reason: risk of toxoplasmosis)? N/A Genetic testing done this here or other office? Yes, [place] Low Risk Have you been seen here at [facility] in a previous ? No Recent ER visits or hospitalizations? ER visit 02/12 for subchorionic hemorrhaging Bring blood sugar log or meter with you today? (Please bring them with you for every visit at [facility]) N/A Flu vaccine (Jul-November)? No Traveled outside the country in the past 6 months? No Any concerns that you would like me to mention to the provider today? No REASON FOR CONSULTATION: History of PE HISTORY OF PRESENT ILLNESS: Barney Orosco is a pleasant 29 y.o. at 16w4d due on Estimated Date of Delivery: 09/18/24. complicated by: History of pulmonary embolism at 19 years old. Patient was on OCPs at time of PE. She was managed on anticoagulation for a full year afterwards. Inherited thrombophilia workup performed at that time included negative factor 5 Leiden, protein C/S, anticardiolipin antibody (confirmed on chart review in [facility] Care everywhere). She has not had any recurrent episodes of DVT or PE. She has not been on anticoagulation since she was 20 years old. She does have a family history of a DVT in her father. Subchorionic hematomas in this , 2 significant hematomas with anterior hematoma measuring 2.8 x 1.8 x 2.3 cm and posterior hematoma measuring 5.0x 3.6 x 1.1 cm. She experienced 4 weeks of bleeding earlier in this , last bleed occurred over 6 weeks ago. growth restriction, EFW 2.2%. She is well dated with an LMP equals 8 week ultrasound. Today, the patient is doing well. She denies SOB or chest pain. She denies contractions, vaginal bleeding, leaking of fluid. Aneuploidy screening: low risk cell free DNA Carrier screening: PAST OBSTETRICAL HISTORY: OB History Para Term AB Living 1 SAB IAB Ectopic Multiple Live Births # Outcome Date GA Lbr Rashid/2nd Weight Sex Type Anes PTL Lv 1 Current MEDICAL HISTORY: Past Medical History: Diagnosis Date Anemia PCOS (polycystic ovarian syndrome) Pulmonary embolism ([facility] 2014 SURGICAL HISTORY: Past Surgical History: Procedure Laterality Date WISDOM TOOTH EXTRACTION ALLERGIES: Allergies Allergen Reactions Cefprozil CURRENT MEDICATIONS: Current Outpatient Medications: 25/iron fum/folic/dha (-1 ORAL), Take by mouth., Disp: , Rfl: REVIEW OF SYSTEMS: Head and Neck: Negative for any dizziness and headaches. Cardiovascular and Respiratory System: Denies any chest pain, shortness of breath, and coughing. Abdominal and System: Denies any abdominal pain, nausea, vomiting, vaginal bleeding, and vaginal discharge FAMILY/GENETIC HISTORY: denies any family history of autism/developmental delay. Family History Problem Relation Age of Onset Heart disease Paternal Grandfather Cancer Maternal Grandmother Cancer Maternal Grandfather Heart disease Father Diabetes Father Hypertension Father Deep vein thrombosis Father Hypertension Mother Breast cancer Mother SOCIAL HISTORY:Patient denies tobacco use, alcohol use, or drug use. RECENT HOSPITALIZATION: none HABITS: Patient activity no restrictions, diet no restrictions REVIEW OF TESTS AND ULTRASOUND REPORTS: Referral records and [facility] chart were reviewed Pertinent Ultrasound findings are see formal ultrasound report. PHYSICAL EXAMINATION: BP 118/76 Pulse 95 Ht 162.6 cm (5' 4 ) Wt 95.4 kg (210 lb 5.1 oz) LMP 12/13/2023 BMI 36.10 kg/m Well-appearing in no distress. Respirations not labored, speaking comfortably in full sentences Gravid abdomen OVERALL ASSESSMENT -Barney Beat is a pleasant 29 y.o. at 16w4d -h/o PE -subchorionic hematoma -FGR COUNSELING The most important individual risk factor for VTE in is a personal history of thrombosis. The risk of recurrent VTE during is increased threefold to fourfold (relative risk, 3.5; 95% CI, 1.6-7.8), and 15-25% of all cases of VTE in are recurrent events. The next most important individual risk factor for VTE in is the presence of a thrombophilia. Both acquired and inherited thrombophilias increase the risk of VTE. In those patients with a single unprovoked VTE (includes no identified precipitating factors and prior VTE in or VTE associated with hormonal contraception) in were not on long-term anticoagulation, ACOG recommends that antepartum management and management can include prophylactic, intermediate dose, or adjusted dose low-molecular weight/unfractionated heparin to be continued through 6 weeks . Inherited thrombophilia testing so far has resulted negative for protein C and S deficiency, factor 5 Leiden mutation and anticardiolipin antibody. She is not currently on anticoagulation and has not been on any anticoagulation therapy in 10 years. Signs and symptoms of VTE were reviewed in detail, including unilateral lower extremity swelling, pain, palpable cord, or erythema in a lower extremity, shortness of breath and difficulty breathing, and chest pain. We reviewed that in the absence of a subchorionic hematoma, now I would recommend initiation of prophylactic anticoagulation with Lovenox at 40 mg daily. However in the presence of to significant subchorionic hematomas that has been associated with heavy bleeding and now early onset growth restriction, I am hesitant to initiate anticoagulation without proving stability of hematomas. We reviewed that subchorionic hematomas, also referred to as subchorionic hemorrhage, occurs not infrequently in pregnancies, broad incidence rate of 1-20%. It is the most common cause of vaginal bleeding in patients between 10-20 weeks' gestation. Subchorionic hemorrhage is bleeding beneath the chorion membrane that enclose the embryo of the uterus, occurs due to partial detachment of the chorion membrane from the wall of the uterus. It is associated with increased risk of loss if the hemorrhage accounts for more than 25% of the volume of the gestational sac. Subchorionic hematoma is associated with an increased risk of early loss, (8.9% vs 17.6%, OR 2.18, 95%CI 1.3-3.7), stillbirth (0.9% vs 1.9%, OR 2.09, 95%CI 1.2-3.67), abruption (0.7 to 3.6%, OR 5.7, 9%CI 3.9-8.3), and premature rupture of membranes (2.3% vs 3.8%; OR 1.64, 95%CI 1.22-2.21) and delivery (10.1% vs 13.6%; OR 1.4, 95%CI 0.37-5.89). [ outcomes in women with subchorionic hematoma: a systematic review and meta-analysis. OBGYN 2011; PMID [id number]] Severity of outcomes also depends on the characteristics of the subchorionic hematoma (retroplacental versus marginal), size and extent, gestational age at diagnosis. Of note, there was not increased risk of small for gestational age (OR 1.69, 95% CI 0.89-3.19) or pre-eclampsia (OR 1.47, 95% CI 0.37-5.89). We discussed that the growth restriction with an EFW of 2.2% is concerning for significant clinical subchorionic hematoma. We also discussed that growth restriction at this point can be a sign of underlying chromosomal defect. Although cell-free DNA is not a diagnostic test , it has high sensitivity and specificity for the most common aneuploidies. A negative cell free DNA does not ensure an unaffected . Limitations of cell free DNA screening were reviewed with the patient. Cell free DNA does not replace the accuracy and diagnostic precision of amniocentesis which remains an option for all women. However, amniocentesis is not an option at this point in given significant subchorionic hematomas. SUMMARY/RECOMMENDATION: Testing for inherited thrombophilias (prothrombin gene mutation, antithrombin III deficiency) and acquired thrombophilias (antiphospholipid antibody syndrome), labs ordered Reviewed signs symptoms of VTE Follow up in 2 weeks to re-evaluate hematomas. Discussed that if hematomas are stable and she continues to remain asymptomatic without any episodes of vaginal bleeding, would recommend initiation of Lovenox 40 mg daily at that time. If inherited thrombophilia testing results positive, would recommend higher dosing of anticoagulation with therapeutic dosing during . Incomplete level 2 anatomy ultrasound, patient is scheduled in 4 weeks for attempted completion Recommend serial growth ultrasounds every 4 weeks following anatomy ultrasound completion, through primary OB Follow up scheduled in [facility] in 2 and 4 weeks, recommendations regarding testing and delivery timing pending further workup DISPOSITION: At this point the patient is in complete care of her technology applications teacher. Patient does have ultrasound and office visit scheduled with us. Thank you for allowing me to participate in the care of Barney Orosco. If there any questions please do not hesitate to contact us. Total time spent was 48 minutes: Preparing to see the patient (e.g., review of tests) Obtaining and/or reviewing separately obtained history Performing a medically appropriate examination and/or evaluation Counseling and educating the patient/family/caregiver Ordering medications, tests, or procedures Referring and communicating with other health attending ambulatory care (not separately reported) Documenting clinical information in the electronic or other health record Theodore Leonard MD Maternal- Medicine [facility] [address] [place] [address] [facility], the CDC, and other organizations representing maternal and public health professionals recommend that , , and lactating people and those considering receive the COVID-19 vaccination. Vaccination is the best method to reduce maternal and complications of SARS-CoV-2 infection. This document was created with [employer] technology. Though I make every effort to review the dictation as it is transcribed, on occasion the spoken word can be misinterpreted by the technology leading to inappropriate words, phrases, or sentences. This note is addressed to the requesting provider as a consultation for clinical guidance. Specific medical abbreviations are occasionally used and those are generally approved by the [place]?Board of?Obstetrics and?Gynecology?as well as?Karel s abbreviations. The above plan of care was based solely on the diagnoses for which a consultation was requested. ?More frequent testing may be indicated based on her other medical/obstetrical conditions. The management of other or medical conditions is beyond the scope of requested consultation and will continue to be followed by the primary technology applications teacher or primary care provider. Note to patient: The Century Cures Act makes medical notes like [...] and the clinical opinion of the practitioner. documented in this encounter [facility] Evaluation note Diagnosis Wellness examination documented in this encounter [employer] Phone: evaluation note* Diagnosis Women's annual routine gynecological examination documented in this encounter [employer] Phone: evaluation note* Diagnosis Screening for diabetes mellitus Screening cholesterol level Screening for lipoid disorders documented in this encounter [employer] Phone: evaluation note* Diagnosis Second trimester state, incidental 28 weeks gestation of [facility] Diagnosis Third trimester state, incidental 30 weeks gestation of Poor growth affecting management of mother in first trimester, single or unspecified fetus [facility] Diagnosis 32 weeks gestation of Third trimester state, incidental growth restriction antepartum [facility]* Diagnosis Second trimester state, incidental [facility]* Diagnosis 24 weeks gestation of growth restriction antepartum Diabetes mellitus screening Screening for diabetes mellitus documented in this encounter [facility]* Diagnosis Wound dehiscence, , condition- Primary Disruption of wound, [facility] Diagnosis Wound dehiscence, , condition- Primary Disruption of wound, [facility] Diagnosis Wound infection following section, - Primary [facility]* Diagnosis Wound dehiscence, , condition- Primary Disruption of wound, [facility]* Diagnosis 6 weeks follow-up documented in this encounter [facility]* Diagnosis History of pulmonary embolus (PE)- Primary Subchorionic hematoma in second trimester, single or unspecified fetus 16 weeks gestation of growth restriction antepartum [facility] Diagnosis Subchorionic hematoma in second trimester, single or unspecified fetus- Primary Pulmonary embolism affecting in first trimester documented [facility]* Diagnosis Subchorionic hematoma in second trimester, single or unspecified fetus- Primary Circumvallate placenta during in second trimester, antepartum Poor growth affecting management of mother in second trimester, single or unspecified fetus Pulmonary embolism affecting in first trimester [facility]* Diagnosis 24 weeks gestation of - Primary History of pulmonary embolus (PE) Poor growth affecting management of mother in second trimester, single or unspecified fetus Obesity affecting , antepartum, unspecified obesity type [facility]* Diagnosis Subchorionic hematoma in second trimester, single or unspecified fetus- Primary Circumvallate placenta during in second trimester, antepartum Poor growth affecting management of mother in second trimester, single or unspecified fetus [facility]* Diagnosis History of pulmonary embolism- Primary Personal history of venous thrombosis and embolism 30 weeks gestation of Impaired glucose tolerance during [facility]* Diagnosis History of pulmonary embolus (PE)- Primary Impaired glucose tolerance during Poor growth affecting management of mother in second trimester, single or unspecified fetus Obesity affecting , antepartum, unspecified obesity type growth restriction antepartum [facility]* Diagnosis 33 weeks gestation of - Primary Poor growth affecting management of mother in third trimester, single or unspecified fetus Separation of chorion and amnion membranes, antepartum [facility]* Diagnosis Wound dehiscence, , condition- Primary Disruption of wound, [facility]* Diagnosis Wound infection following section, - Primary Wound dehiscence, , condition Disruption of wound, documented [facility]* Diagnosis Wound infection following section, - Primary documented [facility]* Diagnosis Wound infection following section, - Primary documented [facility]* Diagnosis Wound infection following section, - Primary documented [facility]* Diagnosis Surgical wound infection- Primary Other postoperative infection documented [facility]* Diagnosis Wound dehiscence, , condition- Primary Disruption of wound, Wound infection following section, documented [facility]* Diagnosis Wound dehiscence, , condition- Primary Disruption of wound, [facility]* Diagnosis Wound dehiscence, , condition- Primary Disruption of wound, [facility]* Diagnosis Wound dehiscence, , condition- Primary Disruption of wound, [facility] Diagnosis Wound dehiscence, , condition- Primary Disruption of wound, Wound infection following section, [facility]* Diagnosis Encounter for insertion of Mirena IUD Burning with urination Dysuria documented in this encounter [facility]* Diagnosis Wellness examination [facility] Diagnosis Urinary urgency Urgency of urination [facility] Diagnosis Well woman exam with routine gynecological exam Routine gynecological examination documented in this encounter [facility]* Diagnosis Encounter for IUD removal documented in this encounter [facility] HealthcareInstructionsNot on filedocumented in this [facility]ructionsNot on filedocumented in this [facility]ructionsNot on filedocumented in this [facility] InstructionsNot on filedocumented in this [facility] InstructionsNot on filedocumented in this [facility] InstructionsNot on filedocumented in this [facility] InstructionsNot on filedocumented in this [facility] InstructionsNot on filedocumented in this [facility] InstructionsNot on filedocumented in this [facility] InstructionsNot on filedocumented in this [facility] InstructionsNot on filedocumented in this [facility]Pro[facility] InstructionsNot on filedocumented in this [facility] InstructionsNot on filedocumented in this [facility]ProDec[facility] InstructionsNot on filedocumented in this [facility] InstructionsNot on filedocumented in this [facility] InstructionsNot on filedocumented in this [facility] InstructionsNot on filedocumented in this encounterK[facility] SystemReason for referral (narrative)* Misc (Routine) - Pending Review Specialty Diagnoses / Procedures Referred By Florinda myers Referred To Contact Procedures Iodoform packing strip Renae Stafford, ACOUSTICAL INSTALLER-GENERAL EDUCATION INSTRUCTOR [address] [phone] Phone: tel: fax: Referral ID Status Reason Start Date Expiration Date V isits Requested Visits Authorized [id number] Pending Review 08/26/2024 08/26/2025 1 1 [facility] Assessments Diagnosis Irregular menses Irregular menstrual cycle Advance Directives Documents on File Type Date Recorded Patient Finish Rolls Operator Expl anation Advance Directives and Living Will Power of Torque Tester Latest Code Status on File Code Status Date Activated Date Inactivated Comments Full Code 09/13/2015 8:45 PM 09/14/2015 5:05 PM Documents on File Type Date Recorded Patient Finish Rolls Operator Expl anation ACP-Advance Directive ACP-Power of Torque Tester Date Activated Date Inactivated Comments 08/13/2024 1:22 PM 08/15/2024 6:30 PM Date Activated Date Inactivated Comments 08/03/2024 4:42 PM 08/07/2024 4:16 PM Date Activated Date Inactivated Comments 08/13/2024 1:22 PM 08/15/2024 6:30 PM Date Activated Date Inactivated Comments 08/03/2024 4:42 PM 08/07/2024 4:16 PM Date Activated Date Inactivated Comments 08/03/2024 4:42 PM Date Activated Date Inactivated Comments 08/03/2024 4:42 PM 08/07/2024 4:16 PM Date Activated Date Inactivated Comments 09/13/2015 8:45 PM 09/14/2015 5:05 PM Summary Purpose Family History No Family History Records FoundNo Family History Records FoundNo Family History Records FoundNo Family History Records FoundNo Family History Records FoundNo Family History Records Found Reason for Referral Specialty Diagnoses / Procedures Referred By Contac t Referred To Contact Maternal and Medicine Diagnoses Subchorionic hematoma in second trimester, single or unspecified fetus Circumvallate placenta during in second trimester, antepartum Poor growth affecting management of mother in second trimester, single or unspecified fetus Procedures [facility] with or without consult Ryan Morgan MD [address] [place] [address] [facility] Maternal Med [address] [place] [address] Referral ID Status Reason Start Date Expiration Date V isits Requested Visits Authorized [id number] Pending Review 05/31/2024 05/31/2025 1 1 Additional Source Comments Care Teams (unrecognized sec tion and content) Engine Monitor Relationship Specialty Start Date End Date Gunnar Palacios MD [address] [place], [place] [id number] PCP - General Family Medicine 09/22/15 Engine Monitor Relationship Specialty Start Date End Date Gunnar Palacios MD [address] [place] [address] PCP - General Family Medicine 09/22/15 Engine Monitor Relationship Specialty Start Date End Date Pcp, [place] [address] PCP - General Family Medicine 08/13/24 Engine Monitor Relationship Specialty Start Date End Date Pcp, [place] [address] PCP - General Family Medicine 08/13/24 Engine Monitor Relationship Specialty Start Date End Date Pcp, [place] [address] PCP - General Family Medicine 08/13/24 Engine Monitor Relationship Specialty Start Date End Date Pcp, [place] [address] PCP - General Family Medicine 08/13/24 Engine Monitor Relationship Specialty Start Date End Date Pcp, [place] [address] PCP - General Family Medicine 08/13/24 Engine Monitor Relationship Specialty Start Date End Date Pcp, [place] [address] PCP - General Family Medicine 08/13/24 Engine Monitor Relationship Specialty Start Date End Date Pcp, [place] [address] PCP - General Family Medicine 08/13/24 Engine Monitor Relationship Specialty Start Date End Date Pcp, [place] [address] PCP - General Family Medicine 08/13/24 Engine Monitor Relationship Specialty Start Date End Date Pcp, [place] [address] PCP - General Family Medicine 08/13/24 Engine Monitor Relationship Specialty Start Date End Date Pcp, [place] [address] PCP - General Family Medicine 08/13/24 Engine Monitor Relationship Specialty Start Date End Date Pcp, [place] [address] PCP - General Family Medicine 08/13/24 Engine Monitor Relationship Specialty Start Date End Date Pcp, [place] [address] PCP - General Family Medicine 08/13/24 Engine Monitor Relationship Specialty Start Date End Date Pcp, [place] [address] PCP - General Family Medicine 08/13/24 Engine Monitor Relationship Specialty Start Date End Date Pcp, [place] [address] PCP - General Family Medicine 08/13/24 Engine Monitor Relationship Specialty Start Date End Date Pcp, [place] [address] PCP - General Family Medicine 08/13/24 Engine Monitor Relationship Specialty Start Date End Date Pcp, [place] [address] PCP - General Family Medicine 08/13/24 Engine Monitor Relationship Specialty Start Date End Date Pcp, [place] [address] PCP - General Family Medicine 08/13/24 Engine Monitor Relationship Specialty Start Date End Date Pcp, [place] [address] PCP - General Family Medicine 08/13/24 Engine Monitor Relationship Specialty Start Date End Date Pcp, [place] [address] PCP - General Family Medicine 08/13/24 Engine Monitor Relationship Specialty Start Date End Date Pcp, [place] [address] PCP - General Family Medicine 08/13/24 Engine Monitor Relationship Specialty Start Date End Date Annabella Warren, SOUMYA - GENERAL EDUCATION INSTRUCTOR [facility] [address] [place] [address] PCP - General Family Nurse Practitioner 02/19/23 Engine Monitor Relationship Specialty Start Date End Date Annabella Warren APRN - GENERAL EDUCATION INSTRUCTOR [facility] [address] [place] [address] PCP - General Family Nurse Practitioner 02/19/23 INFORMATION SOURCE (unrecogn ized section and content) DATE CREATED AUTHOR 06/09/2024 [facility] DATE CREATED AUTHOR AUTHOR'S ORGANIZ ATION 08/06/2024 [facility] DATE CREATED AUTHOR AUTHOR'S ORGANIZ ATION 09/11/2024 [facility] DATE CREATED AUTHOR AUTHOR'S ORGANIZ ATION 09/24/2024 [facility] DATE CREATED AUTHOR AUTHOR'S ORGANIZ ATION 01/09/2025 [facility] DATE CREATED AUTHOR AUTHOR'S ORGANIZ ATION 04/26/2025 [facility] dical Specialists EPIC Reason for Visit (unrecogniz ed section and content) Reason Comments Wound Check Specialty Diagnoses / Procedures Referred By Contac t Referred To Contact Wound Care Diagnoses Wound dehiscence, , condition Jocelin Grissom MD [address] [place] [address] Phone: tel: fax: [facility] [address] [place] [address] Phone: tel: fax: Referral ID Status Reason Start Date Expiration Date Visits Requested Visits Authorized [id number] Pending Review Specialty Services Required 08/16/2024 08/16/2025 7 7 Reason Comments Dressing Change Specialty Diagnoses / Procedures Referred By Contac t Referred To Contact Wound Care Diagnoses Wound dehiscence, , condition Jocelin Grissom MD [address] [place] [address] Phone: tel: fax: [facility] [address] [place] [address] Phone: tel: fax: Referral ID Status Reason Start Date Expiration Date Visits Requested Visits Authorized [id number] Pending Review Specialty Services Required 08/16/2024 08/16/2025 7 7 Reason Comments Wound Check Abdominal Reason Comments Dressing Change Reason Comments Wound Check Abdomen Reason Comments Dressing Change ABD Reason Comments Wound Check Reason Comments Routine Visit Reason Comments Routine Visit Reason Comments Negative Pressure Wound Therapy Reason Comments Wound Check Abdomen Reason Comments Follow-up Reason Comments Hx PE Reason Comments placental hematoma history of PE growth restriction Reason Onset Date Comments Services 08/09/2024 Reason Comments Care Reason Comments Care Reason Comments Contraception Mirena Insert Reason Comments Well Women Visit FOR RECORDS PERTAINING TO PATIENTS WHO [...] BE BASED ON THE PRIMARY CLINICAL RECORDS. [facility] [employer] [facility]. provides no warranty or guarantee of the accuracy or completeness of information in this document.
[2025-04-29 08:30] VITALS: BP 116/73; PULSE 77; TEMP 36.1; O2SAT 99; BMI 36.9
[2025-04-29 08:37] LABS: Hematocrit 40.9 % (36.0-48.0); Hemoglobin 13.5 g/dL (12.0-16.0); Immature Granulocytes Abs Auto 0.02 10^3/uL (0.00-0.03); Immature Granulocytes Pct Auto 0.2 % (0.0-0.5); Lymphocytes Absolute Auto 2.8 10^3/uL (1.2-3.8); Mean Corpuscular HGB Conc 33.0 g/dL (29.9-35.2); Mean Corpuscular Hemoglobin 28.4 pg (26.7-34.0); Mean Corpuscular Volume 85.9 fL (81.0-99.0); Platelet Count 299 10^3/uL (150-450); Red Blood Count 4.76 10^6/uL (4.20-5.40); White Blood Count 9.2 10^3/uL (4.0-11.0)
--- NOTE | 2025-04-29 10:46 | PM.ONB ---
Brief Operative Note Date of procedure: 04/29/25 Pre-op diagnosis general: retained iud Post-op diagnosis: same as pre-op Procedure: NAME OF PROCEDURE: [ removal of iud] PROCEDURE: The patient was taken back to the Operating Room where she was prepped and draped in normal sterile fashion after being placed under general anesthesia without difficulty. She was also placed in the dorsal lithotomy position. A weighted speculum was placed in the patient?s vagina. The anterior lip of the cervix was identified and grasped with a single tooth tenaculum. The patient?s uterus was then sounded roughly to [? 8] cm. The patient was then gently dilated using Hegar dilators. polyp forcep was used to grasp the iud and removed without difficulty, The single tooth tenaculum was then removed from the patient's anterior lip of the cervix where excellent hemostasis was noted. All instruments were removed from the patient?s vagina. The patient tolerated the procedure well. Sponge, lap and needle counts were correct times two. The patient was taken to the Recovery Room in stable condition.Room in stable condition. Anesthesia: MAC Surgeon: Sree Francisco Estimated blood loss (mL): 5 Pathology: none sent Condition: stable Disposition: PACU Urinary Catheter Management Urinary Catheter Management Urethral: Cath placed during this visit: no
[2025-04-29 10:50] VITALS: BP 119/75; PULSE 103; TEMP 36.3; O2SAT 90
[2025-04-29 11:05] VITALS: BP 114/82; PULSE 98; O2SAT 93
[2025-04-29 11:20] VITALS: BP 106/63; PULSE 84; O2SAT 100
[2025-04-29 11:34] VITALS: BP 116/87; PULSE 76; O2SAT 97
== END 2025-04-29 11:34 | disposition home or self-care (01) ==
LOC: SURGOUT 08:22
PROVIDERS: PCP Nurse Practitioner Women's Health; Visit Provider Obstetrics & Gynecology
PROC: (CPT 940; principal; 2025-04-29 09:35)
DX: T83.32XA Displacement of intrauterine contraceptive device, initial encounter (principal); Z86.711 Personal history of pulmonary embolism; Z86.32 Personal history of gestational diabetes; E28.2 Polycystic ovarian syndrome; F41.9 Anxiety disorder, unspecified
CPT/HCPCS: 58301; 36415; 84702; 85025; J1100; J1885; J2250; J2704